=== PATIENT | male | born 1950 | race Caucasian/White ===

== ENCOUNTER → 2022-09-29 | Outpatient (CLI) | payer MEDICARE, OTHER, SELFPAY ==
--- NOTE | 2022-09-29 14:18 | US_ITS ---
EXAM: US Kidney(s) complete (eg, kidneys and bladder) INDICATION: Male, 71 years old. CKD3B TECHNIQUE: Eason-scale and color Doppler imaging was performed of the kidneys COMPARISON: No relevant priors. FINDINGS: RIGHT KIDNEY: The right kidney measures 10.5 x 5.3 x 6.3 cm. Renal cortex measures 1.8 cm in thickness. No focal parenchymal lesion. No evidence of nephrolithiasis. There is mild hydronephrosis.. Distal right ureter is visualized. . LEFT KIDNEY: Left kidney measures 11.4 x 5.8 x 6.9 cm. Renal cortex measures 1.1 cm in thickness.. No focal parenchymal lesion. Moderately severe hydronephrosis. No visualized nephrolithiasis. Distal left ureter is visualized. URINARY BLADDER: Urinary bladder demonstrates a prevoid volume of 112 mL. There is no significant wall thickening. There is a 1.2 cm echogenic focus in the caudal aspect of the urinary bladder lumen.. US/Kidney and Bladder IMPRESSION: 1. Moderate left-sided hydronephrosis without visualized nephrolithiasis. 2. 1.2 cm echogenic lesion within the caudal aspect of the urinary bladder lumen which may represent blood clot versus mucosal lesion.. Electronically Signed: Timmy Norris MD at 2:59 EDT ,
== END | disposition home or self-care (01) ==
LOC: US 14:16
PROVIDERS: PCP Family Medicine; Referring Provider Internal Medicine Nephrology; Visit Provider Internal Medicine Nephrology
DX: N18.32 Chronic kidney disease, stage 3b (principal)
CPT/HCPCS: 76770

== ENCOUNTER → 2023-01-13 | Outpatient (CLI) | payer MEDICARE, OTHER, SELFPAY ==
--- NOTE | 2023-01-13 13:55 | CT_ITS ---
INDICATION: CKD EXAMINATION: CT ABDOMEN AND PELVIS WITHOUT CONTRAST - CT Abdomen And Pelvis W/O Contrast Injection TECHNIQUE: Helically acquired images were obtained of the abdomen and pelvis without oral or IV contrast. A radiation dose optimization technique was used for this scan. IV Contrast dosage and agent: None. Oral contrast: None. RADIATION DOSAGE (If Supplied By Facility): CTDIvol = ( 15.28 ) mGy, DLP = ( 805.73 ) mGycm COMPARISON: Renal ultrasound of 09/29/2022. FINDINGS: LOWER CHEST: Hypoventilatory changes in lung bases. No cardiomegaly or pericardial effusion. LIVER: Homogeneous. No focal mass. GALLBLADDER AND BILIARY TREE: No calcified gallstones. No gallbladder distension or wall edema. No intra- or extrahepatic biliary ductal dilation. PANCREAS: No focal cystic or solid mass. SPLEEN: Normal size without focal cystic or solid mass. ADRENAL GLANDS: No nodules. KIDNEYS AND URETERS: Severe left hydronephrosis and hydroureter extending to the left ureterovesical junction without evidence of ureteral stones. Severe thinning of the left renal cortex. No evidence of right hydronephrosis. PERITONEUM: No ascites or free air. No other fluid collection. BOWEL: No evidence of acute appendicitis. No stomach or bowel distension. Diverticulosis of the sigmoid colon without evidence of acute diverticulitis. LYMPH NODES: No enlarged mesenteric or retroperitoneal lymph nodes. VESSELS: Atherosclerotic sclerotic calcifications of the abdominal aorta and both iliac arteries without evidence of aneurysm. URINARY BLADDER: The bladder is not well distended. Soft tissue density/mass on the left side of the base of the bladder measuring about 3 m probably obstructing the distal left ureter. REPRODUCTIVE ORGANS: Slightly prominent prostate. ABDOMINAL WALL: Bilateral inguinal hernias containing fat. BONES: Degenerative changes in the lower lumbar spine. CT/Abdomen/Pelvis without Cont IMPRESSION: 1. Severe left hydronephrosis and hydroureter with thinning of the renal cortex likely due to 3 cm mass on the left side of the bladder obstructing the left ureterovesical junction. Urologic consultation is recommended. 2. Diverticulosis without evidence of acute diverticulitis. 3. No focal acute inflammatory process. Electronically Signed: Quinton Davidson MD at 15:01 EDT ,
== END | disposition home or self-care (01) ==
LOC: CT 13:48
PROVIDERS: PCP Family Medicine; Referring Provider Urology; Visit Provider Urology
DX: N18.30 Chronic kidney disease, stage 3 unspecified (principal); N13.1 Hydronephrosis with ureteral stricture, not elsewhere classified; D41.4 Neoplasm of uncertain behavior of bladder
CPT/HCPCS: 74176

== ENCOUNTER 2023-02-09 08:46 | Day surgery (SDC) | payer MEDICARE, OTHER, SELFPAY ==
[2023-02-09] VITALS (7 sets, daily range): BP systolic 138–157; BP diastolic 67–94; PULSE 95–123; RESP 10–18; TEMP 36.2–36.9; O2SAT 94–100; BMI 32.5
[2023-02-09] MEDS: Lactated Ringers 1,000 ML 15 ML IV (09:16)
--- NOTE | 2023-02-09 10:11 | PCM.HP.BLA ---
History and Physical Date of Admission: 02/09/23 72 yo male comes in today abnormal u/s read us shows Left severe hydro nephrosis, causes is unclear also shows possible mass inside the bladder no gross hematuria, no problems voiding. comes in for a cysto had a ct scan done which shows a swollen left kidney hydro nephrosis and a mass in the bladder ALLERGIES: None MEDICATIONS: Amlodipine Besilate Chlorthalidone 25 mg tablet 1 tablet PO Daily Lisinopril 40 mg tablet 1 tablet PO Daily Immunizations: None VITAL SIGNS: 01/17/2023 10:32 AM Weight 206 lb / 93.44 kg Height 66 in / 167.64 cm BMI 33.2 kg/m? - BMI Counseling was provided. PHYSICAL EXAM: Constitutional: Well-nourished. No physical deformities. Normally developed. Good grooming. Neck: Neck symmetrical, not swollen. Normal tracheal position. Respiratory: No labored breathing, no use of accessory muscles. Cardiovascular: Normal temperature, normal extremity pulses, no swelling, no varicosities. Lymphatic: No enlargement of neck, axillae, groin. Skin: No paleness, no jaundice, no cyanosis. No lesion, no ulcer, no rash. Neurologic / Psychiatric: Oriented to time, oriented to place, oriented to person. No depression, no anxiety, no agitation. Gastrointestinal: No mass, no tenderness, no rigidity, non obese abdomen. Eyes: Normal conjunctivae. Normal eyelids. Ears, Nose, Mouth, and Throat: Left ear no scars, no lesions, no masses. Right ear no scars, no lesions, no masses. Nose no scars, no lesions, no masses. Normal hearing. Normal lips. Musculoskeletal: Normal gait and station of head and neck. Epididymides: Right: no spermatocele, no masses, no cysts, no tenderness, no induration, no enlargement. Left: no spermatocele, no masses, no cysts, no tenderness, no induration, no enlargement. Testes: No tenderness, no swelling, no enlargement left testes. No tenderness, no swelling, no enlargement right testes. Normal location left testes. Normal location right testes. No mass, no cyst, no varicocele, no hydrocele left testes. No mass, no cyst, no varicocele, no hydrocele right testes. Urethral Meatus: Normal size. No lesion, no wart, no discharge, no polyp. Normal location. Penis: Circumcised, no warts, no cracks. No dorsal Peyronie's plaques, no left corporal Peyronie's plaques, no right corporal Peyronie's plaques, no scarring, no warts. No balanitis, no meatal stenosis. PAST DATA REVIEW: None PROCEDURES: Flexible Cystoscopy - 31415 Risks, benefits, and some of the potential complications of the procedure were discussed at length with the patient including infection, bleeding, voiding discomfort, urinary retention, fever, chills, sepsis, and others. All questions were answered. Informed consent was obtained. Antibiotic prophylaxis was given. Sterile technique and intraurethral analgesia were used. Meatus: Normal size. Normal location. Normal condition. Urethra: No strictures. External Sphincter: Normal. Verumontanum: Normal. Prostate: Non-obstructing. Mild hyperplasia. Bladder Neck: Non-obstructing. Ureteral Orifices: Normal location. Normal size. Normal shape. Effluxed clear urine. Bladder: large invasive tumor in the bladder on the left side. 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 plan to do a TURBT for large tumor
--- NOTE | 2023-02-09 10:12 | DCINST_ITS ---
Discharge Instructions Diet Discharge Diet: No restrictions Activity Discharge Activity: Return to Normal Activity and May Not Drive (while taking narcotic pain medications.) Dressing / Incision Call your doctor if you observe: Fever of 101 or Higher Follow Up Care Please Follow Up With: Pepe Watts MD When: Call [phone] for an appointment Test Results: Test results from this visit will be discussed in further detail at your follow- up appointment, if applicable. Discharge Plan Admission Attending Provider: Pepe Watts Primary Care Provider: David Baptiste Discharge Orders/Prescriptions Prescriptions: No Action chlorthalidone 25 mg tablet 25 mg PO DAILY Patient Comments: take 1 tablet by mouth every morning with food amlodipine 5 mg tablet 5 mg PO DAILY Patient Comments: take 1 tablet by mouth once daily lisinopril 40 mg tablet 40 mg PO DAILY Patient Comments: take 1 tablet by mouth twice a day Other Ambulatory Orders: 12 Lead EKG (Routine) Timeframe: 20230131 Location: None Selected Ordered By: Dr. Amos Francisco Referrals / Follow Up: David Baptiste MD [Primary Care Provider] - Disposition Disposition (needs filled in before D/C Order can be placed): Home, Self Care
[2023-02-09] MEDS: Cefazolin 2 GM in 0.9% Normal Saline (100mL Bag) 100 ML IV (10:32)
--- NOTE | 2023-02-09 11:04 | OP.PCM_ITS ---
Report of Operation Date of Procedure: 02/09/23 Pre-Operative Diagnosis: Invasive tumor coming from the left ureteral orifice a nd bladder wall Post-Operative Diagnosis: The same Surgery/Procedure Performed:: Transurethral resection of a large bladder tumor appears invasive into the left ureter Description of Surgical Findings:: This is a 72-year-old male with gross hematuria CT scan was done that demonstrates a hydronephrotic left nonfunctioning kidney but hydro nephro ureteral dilation. In the bladder he has a mass that is obstructing the left ureter completely and protruding into the bladder second a do a transurethral resection of this mass to diagnose an invasive cancer and organ resect this mass is much as possible but I think he is going to need a complete nephro ureterectomy on the left side and an open partial cystectomy to remove this mass completely this will be done at a separate setting today Melanie do the resection and diagnostic evaluation. Patient was taken back to the operating room at the smooth induction of a nesthesia he was placed in dorsolithotomy position. He was intubated and paralyzed for the procedure. Went in with the bladder with the cystoscope on inspection of the bladder he has a large tumor , tumor measurements aware 5.5 cm x 3 cm x 4 cm emanating and pushing from the left ureter and left trigone area I then inspected the rest of the bladder I did not see any other tumors in the bladder I then switched over to the 24 Portuguese Olympus bipolar resectoscope with noncontinuous flow I then started resecting this tumor resected down to the muscle fibers all the way around the tumor and then resected in the tumor working basically up by up the ureter as far as possible until I reached perivesical fat at this point I decided to stop the resection since I have gone all the way through the bladder to the perivesical fat I then cauterized extensively and then a De Leon catheter was placed to decompress the bladder and allowed us to heal since I did have to go all the way through the perivesical fat to resect this tumor but it was not a complete resection since the tumor was look like it was going higher up in the ureter he is going to need a completion left nephro ureterectomy and an open partial cystectomy to remove the entire tumor completely. This was explained to the patient beforehand he will go home with a catheter I will see him a week later to remove the catheter and we will set him up for second surgery to remove his left kidney completely and also finished removing the tumor from his bladder. Surgeon: Pepe Watts Type of Anesthesia: General Drains: de leon 18 fr
--- NOTE | 2023-02-09 11:15 | BLA_PTH ---
PATIENT: DINH SIN LOC: [facility] [place] U#:[id number] AGE/SX: 72/M ROOM: RE02/09/[address]: Dr. Pepe Watts MD : 1950 BED: DIS: 02/09/2023 SPEC #: [id number] RECD: 02/09/23 14:03 STATUS: HERB CURTIS #: [id number] ALVERTO: 02/09/23 11:[address]: Pepe Watts DEPT: SURGICAL PATHOLOGY RECD BY: Mojgan Art ENTERED: 02/10/23 09:11 SP TYPE: BLADDER BX OTHR DR: Dr. David Baptiste MD Tissues: Urinary bladder, NOS Procedures: Surgery Specimen Level V HEADER OPERATION: Transurethral bladder tumor resection, large with Olympus PRE-OP DIAGNOSIS: Hydronephrosis with ureteral stricture; neoplasm of bladder TISSUE SUBMITTED: Bladder tumor MICROSCOPIC DIAGNOSIS Urinary bladder tumor, transurethral resection: Invasive urothelial carcinoma. See synoptic report below. AM:emily 02/11/2023 COMMENT BLADDER CANCER (TUR) SUMMARY Procedure: Transurethral resection of bladder tumor (TURBT) Tumor site: Not specified Histologic type: Invasive urothelial carcinoma Associated epithelial lesions: None identified Histologic grade: 3/3 (high grade) Tumor configuration: Nonpapillary, invasive Muscularis propria presence: Present and free of tumor. Lymphvascular invasion: Not identified. Tumor extension: Tumor invades into lamina propria. Additional pathologic findings: Mild chronic inflammation. The above summary is in compliance with [employer] [place] [employer] (CAP) Cancer Protocols Checklist and [place] Joint Committee on Cancer (AJCC), Staging Manual, 8th Ed. PATHOLOGIC STAGE: T1 Nx Mx Case has been reviewed in consultation with Dr. Winston who concurs with the above diagnosis. IDC:[id number] MICROSCOPIC DESCRIPTION Slides are reviewed. GROSS DESCRIPTION Received in fixative is one container labeled with the patient's name and designated bladder tumor. The specimen consists of multiple irregular fragments of light rankin soft tissue that in aggregate measure 4.0 x 4.0 x 0.2 cm. The specimen is totally submitted in three cassettes. / AM:emily 02/10/2023 TC:0 CPT: 57877
== END 2023-02-09 13:05 | disposition home or self-care (01) ==
LOC: SDC 08:47 → AC 08:48
PROVIDERS: PCP Family Medicine; Referring Provider Urology; Visit Provider Urology
PROC: 0TBB8ZZ Excision of Bladder, Via Natural or Artificial Opening Endoscopic (ICD-10-PCS; CPT 52240; principal; 2023-02-09 11:05)
DX: C66.2 Malignant neoplasm of left ureter (principal); N13.1 Hydronephrosis with ureteral stricture, not elsewhere classified; I10 Essential (primary) hypertension; Z79.899 Other long term (current) drug therapy; Z87.891 Personal history of nicotine dependence
CPT/HCPCS: 52240; 00912; 88305; 88307; 93005; J7120; J2405

== ENCOUNTER 2023-02-23 08:02 | Inpatient (IN) | payer MEDICARE, OTHER, SELFPAY ==
[2023-02-19 07:55] LABS: Hematocrit 41.7 % (40-54); Mean Corp Hgb Conc 28.8 g/dL (32-36); Mean Corpuscular Volume 93.7 fL (80-94); Mean Platelet Vol. 10.6 fl (6.2-12.0); Platelet Count 395 K/mm3 (150-450); RBC Distribution Width CV 14.4 % (11.6-14.6); RBC Distribution Width SD 50.1 fl (35.1-43.9); Red Blood Count 4.45 M/mm3 (4.6-6.2); White Blood Count 9.1 K/mm3 (4.4-11.0)
[2023-02-19 08:37] LABS: Anion Gap 2 (5-15); BUN 68 mg/dL (7-18); BUN/Creat Ratio 26.8 RATIO (10-20); Calcium,Total 9.3 mg/dL (8.5-10.1); Chloride 115 mmol/L (98-107); Creatinine, Serum 2.54 mg/dL (0.70-1.30); EST Glomerular Filtration Rate 27 mL/min (>60); Est Glom Filt Rate - Afr Amer 32 mL/min (>60); Glucose 106 mg/dL (74-106); Sodium Level 142 mmol/L (136-145)
[2023-02-23] VITALS (10 sets, daily range): BP systolic 119–153; BP diastolic 64–81; PULSE 92–105; RESP 15–18; TEMP 36.2–36.9; O2SAT 94–99; BMI 32.1
--- NOTE | 2023-02-23 | IMM_PTH ---
PATIENT: DINH SIN LOC: [facility] U#:[id number] AGE/SX: 72/M [place]: [facility] [place]/23/[address]: Dr. Pepe Watts MD : 1950 BED: 1 DIS: 02/26/2023 SPEC #: [id number] RECD: 03/02/23 11:48 STATUS: HERB REQ #: [id number] ALVERTO: 02/23/23 00:[address]: Pepe Watts DEPT: IMMUNOHISTOCHEMISTRY RECD BY: Jelena Newton ENTERED: 03/02/23 11:53 SP TYPE: IMMUNO OTHR DR: Dr. David Baptiste MD Tissues: B - Vas deferens, NOS C - Ureter, NOS Procedures: Kam Ret (add) CD31 (add) CD34 (add) CK20 (add) CK5-6 (add) CK7 (add) CK8 (add) ZARA (add) KI-67 (add) P53 (add) 34BE12 (add) FACTOR VIII (add) Pankeratin (initial) GATA3 (add) PAX8 (add) MOC-31 (add) PHYSICIAN & INSTITUTION [place] [id number] SPECIMEN INFORMATION: Tissue Source: B - Suspected vas deferens, C - Left ureter Clinical Info: Malignant neoplasm of left ureter Specimen Number: [id number] B3 & C4 CPT code: 32397 x2, 48434 x23 METHODOLOGY: Deparaffinized sections of prefer/formalin-fixed tissue or PAP/DQ stained slides are incubated with monoclonal/polyclonal antibodies/oligonucleotide probes. Localization is made via biotin free immunoperoxidase method. Appropriate controls are performed and reacted as expected. Results on target cell population are indicated in the following table: RESULTS: ANTIBODY / CLONE RESULT Block B3 GATA3 (L50-823) positive AE1-3 (AE1/AE3/PCK26) positive CK7 (OV-TL12/30) positive CK8 (01krulU66) positive CK20 (KS20.8) negative 34BE12 (34BE12) positive, focal CD34 (QBEnd-10) negative PAX8 (MRQ50) positive ZARA (E29) positive, focal P53 (DO-7) positive, wild type pattern Ki-67 (30-9) negative Block C4 AE1-3 (AE1/AE3/PCK26) positive CK7 (OV-TL12/30) positive CK8 (35arioC22) positive CK20 (KS20.8) positive 34BE12 (34BE12) positive MOC-31 (4561) negative CALRET (polyclonal) negative PAX8 (MRQ50) negative CK5-6 (D5 & 1684) P53 (DO-7) positive, missense type pattern Ki-67 (30-9) positive, 50% CD31 (DEIRDRE/70A) positive CD34 (QBEnd-10) negative Factor VIII (R Ag) positive These tests were developed and their performance characteristics determined by [facility]. They may not have been cleared or approved by the U.S. Food and Drug Administration. The FDA has determined that such clearance or approval is not necessary. The above immunohistochemical/dualISH markers are ordered and reviewed by the Pathologist. INTERPRETATION: B. Suspected vas deferens, excision: Benign vas deferens No evidence of dysplasia or carcinoma. C. Left ureter, segmental resection: Invasive urothelial carcinoma. Focal lymphatic invasion by carcinoma. AM:emily 03/11/2023
[2023-02-23] MEDS: Lactated Ringers 1,000 ML 15 ML IV (08:43)
--- NOTE | 2023-02-23 10:15 | KID_PTH ---
PATIENT: DINH SIN LOC: [facility] U#:[id number] AGE/SX: 72/M ROOM: [facility] [place] RE02/23/[address]: Dr. Pepe Watts MD : 1950 BED: 1 DIS: 02/26/2023 SPEC #: [id number] RECD: 02/24/23 07:49 STATUS: HERB ACEVEDO #: [id number] ALVERTO: 02/23/23 10:[address]: Pepe Watts DEPT: SURGICAL PATHOLOGY RECD BY: Mojgan Art ENTERED: 02/24/23 07:51 SP TYPE: KIDNEY OTHR DR: Dr. David Baptiste MD Tissues: A - Urinary bladder, NOS B - Vas deferens, NOS C - Ureter, NOS D - Kidney, NOS Procedures: Gen Path Consultation (on slides) Surgery Specimen Level IV Surgery Specimen Level V HEADER OPERATION: Laparoscopic robotic left nephroureterectomy, transurethral PRE-OP DIAGNOSIS: Malignant neoplasm of left ureter TISSUE SUBMITTED: A - Bladder tissue, B - Suspected vas deferens, C - Left ureter, D - Left kidney MICROSCOPIC DIAGNOSIS A. Urinary bladder, transurethral resection: Fragments of benign urothelium with mild chronic inflammation. Fragments of smooth muscle tissue with focal acute and chronic inflammation. B. Suspected vas deferens, excision: Benign vas deferens. C. Left ureter, segmental resection: Invasive urothelial carcinoma. See synoptic report below. D. 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 See synoptic report below. AM:emily 03/11/2023 COMMENT B & C. Immunohistochemistry ([id number]) supports the above diagnosis. Case is seen in consultation with Dr. Neumann of [employer] [facility]. Complete consultative report is in EMR. C. URETER CANCER SUMMARY Procedure: Ureterectomy Specimen laterality: left Tumor site: Ureter Tumor size: Greatest dimension: 3.0 cm Additional dimension: 1.0 x 1.0 cm Histologic type: Urothelial carcinoma, invasive (conventional) Histologic Grade: High grade, 3/3 Tumor extent: Invades beyond muscularis into the periureteric fat. Lymphatic and/or vascular invasion: Present, focal Tumor configuration: Non-papillary, invasive Margin status for invasive carcinoma: All margins negative for invasive carcinoma. Regional lymph node status: Not applicable (no regional lymph nodes submitted or found). Distant site: Cannot be determined. Associated epithelial lesions: None identified - PATHOLOGIC STAGE: pT3 pNx pMx D. RENAL PELVIS CANCER SUMMARY Procedure: Nephrectomy Specimen laterality: Left Tumor site: Renal pelvis Tumor size: Greatest dimension: 1.0 cm Additional dimension: 0.8 x 0.2 cm Histologic type: Urothelial carcinoma, invasive (conventional) Histologic grade: High-grade, G3, poorly differentiated Tumor extent: Invades subepithelial connective tissue, focally. Lymphatic and/or vascular invasion: Focally suspected Margin status for invasive carcinoma: All margins negative for invasive carcinoma. Regional lymph node status: Not applicable (no agustin lymph nodes submitted or found) Distant metastasis: Distant sites involved: Cannot be determined. Associated epithelial lesions: None identified Additional findings: Kidney with marked arterionephrosclerosis, cystic change and chronic inflammation. PATHOLOGIC STAGE: pT1 pNx pMx The above summary is in compliance with [employer] [place] [employer] (CAP) Cancer Protocols Checklist and [place] [employer] Committee on Cancer (AJCC), Staging Manual, 8th Ed. MICROSCOPIC DESCRIPTION Slides are reviewed. GROSS DESCRIPTION A - Received in fixative is one container labeled with the patient's name and designated bladder tissue. The specimen consists of multiple irregular fragments of rubbery rankin tissue that in aggregate measure 2.0 x 1.2 x 0.2 cm. The specimen is totally submitted in one cassette. / AM: 02/24/2023 B - Received in fixative is one container labeled with the patient's name and designated suspected vas deferens. The specimen consists of two tubular segments of rankin tissue measuring 1.6 cm in length and 0.3 cm in average diameter. Property Damage Claims Adjustor sections from each tubular tissue is submitted separately in two cassettes. / AM: 02/24/2023 C - Received in fixative is one container labeled with the patient's name and designated left ureter. The specimen consists of an elongated fragment of tubular tissue with adherent fatty tissue measuring 9.5 cm in length and 1.5 cm in diameter. A plastic clip is present at one end. This end is inked in black ink. The remainder of the specimen is inked in blue ink. Serial sections reveal the lumen to be occupied by a dense white lesion measuring 3.0 x 1.0 x 1.0 cm. The remainder of the ureter appears to be dilated. Property Damage Claims Adjustor sections are submitted in four cassettes. / AM:emily 02/24/2023 D - Received in fixative is one container labeled with the patient's name and designated left kidney. The specimen consists of a kidney with attached ureter and surrounding fibrofatty tissue measuring 22.0 x 12.0 x 5.0 cm. Dissection reveals a multicystic kidney measuring 11.0 x 7.0 x 4.0 cm. The distal ureter measures 12.0 cm. The ureter is probe-patent and contains granular material; however, no mass lesions are identified. The vascular margins of resection are grossly unremarkable. The renal parenchyma varies in thickness from 0.8 to 0.2 cm. The renal pelvis appears to be grossly dilated and contains flat, plaque-like lesion measuring 1.0 x 0.8 x 0.3 cm. The pelvicalyceal systems are not distinct and serial sections of the kidney does not reveal mass lesions. A renal gland is not present. Property Damage Claims Adjustor sections are submitted in seven cassettes as follows: 1 - vascular and ureteric margins, 2 - renal sinus, 3??renal pelvic mass, serially sectioned, 4-7 - renal parenchyma with adjacent perinephric fat. / AM:emily 02/25/2023 TC:0 CPT: 90885 x2, 84091 x2
[2023-02-23] MEDS: Cefazolin 2 GM in 0.9% Normal Saline (100mL Bag) 100 ML IV (11:35)
--- NOTE | 2023-02-23 11:36 | DCINST_ITS ---
Discharge Instructions Diet Discharge Diet: No restrictions and Light diet - advance as tolerated Activity Discharge Activity: May Not Drive Lifting Restrictions: no lifting Dressing / Incision Call your doctor if you observe: Fever of 101 or Higher Cleanse incision/area with: Soap & Water Catheter: Saravia to leg bag and Saravia to large bag Drain: [place] Follow Up Care Please Follow Up With: Pepe Watts MD When: 2 weeks, call for appt Test Results: Test results from this visit will be discussed in further detail at your follow- up appointment, if applicable. Discharge Plan Admission Admit Date/Time: 02/23/23 08:02 Primary Reason for Your Visit: Left nephro ureterectomy Attending Provider: Pepe Watts Primary Care Provider: David Baptiste Discharge Orders/Prescriptions Prescriptions: New docusate sodium [Colace] 100 mg capsule 100 mg PO BID Qty: 20 0RF oxycodone 5 mg tablet 5 mg PO Q6H PRN (Reason: pain) 7 Days Qty: 20 0RF Continued chlorthalidone 25 mg tablet 25 mg PO DAILY Patient Comments: take 1 tablet by mouth every morning with food amlodipine 5 mg tablet 5 mg PO DAILY Patient Comments: take 1 tablet by mouth once daily lisinopril 40 mg tablet 40 mg PO DAILY Patient Comments: take 1 tablet by mouth twice a day Referrals / Follow Up: David Baptiste MD [Primary Care Provider] - Pepe Watts MD [Med Staff - Active Staff] -
--- NOTE | 2023-02-23 11:36 | HP.PCM_ITS ---
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 [facility] Medical History (Updated 02/09/23 @ 10:[address] Pepe Watts MD) Bladder disease Cancer Former smoker Prostate disease Wears glasses Home Medications amlodipine 5 mg tablet 5 mg PO DAILY BP 01/26/23 [History Last Taken 02/23/23] chlorthalidone 25 mg tablet 25 mg PO DAILY BP 01/26/23 [History Last Taken 02/22/23] lisinopril 40 mg tablet 40 mg PO DAILY BP 01/26/23 [History Last Taken 02/23/23] docusate sodium 100 mg capsule (Colace) 100 mg PO BID #20 caps 02/23/23 [Rx Last Taken Unknown] oxycodone 5 mg tablet 5 mg PO Q6H PRN pain 7 days #20 tabs 02/23/23 [Rx Last Taken Unknown] Allergy/AdvReac Type Severity Reaction Status Date / Time No Known Allergies Allergy Verified 02/18/23 14:02 Surgical History (Updated 02/18/23 @ 14:17 by Monie Linares) History of cataract extraction with lens replacement (~2015) History of hernia repair (~1975) History of surgery of head (~1991) History of toe surgery History of transurethral resection of bladder tumor (TURBT) Social History Smoking Status: Former smoker Vital Signs Vital Signs Vital Signs: 02/23/23 08:45 02/23/23 08:45 Temperature 98.1 F Temperature Source Temporal Pulse Rate 95 Respiratory Rate 18 Respiratory Pattern Normal Blood Pressure 153/81 H Blood Pressure Mean 105 Blood Pressure Source Monitor Blood Pressure Position Semi-Fowlers Blood Pressure Location Right Arm Pulse Ox 99 Oxygen Delivery Method Room Air Weight Weight: 90.265 kg Body Mass Index (BMI) 32.1 Results Lab / Micro Data 02/19/23 07:25 02/19/23 07:25
[2023-02-23] MEDS: Lubricating Jelly 60 GM Tube 30 GM (11:45)
[2023-02-23] MEDS: Bupivacaine Mpf 0.5% 30 ML VIAL (15:02)
--- NOTE | 2023-02-23 15:14 | OP.PCM_ITS ---
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 Post-Operative Diagnosis: The same Surgery/Procedure Performed:: Cystoscopy and transurethral resection of the left ureteral orifice and lateral wall the bladder wide resection, robotic assisted laparoscopic nephro ureterectomy and closure of bladder Description of Surgical Findings:: This is a 72-year-old male has gross hematuria was found to have a tumor coming from his left ureteral orifice this was resected and it was invasive into the lamina propria and it was coming from the left ureteral orifice causing complete obstruction and he had a severely hydronephrotic left ureter with atrophic nonfunctioning left kidney so recommended that we do a wide excision around the left ureter from the bladder and then we do a nephro ureterectomy remove the entire kidney and ureter all the way from the top down to remove the diseased kidney and remove the cancer from the distal ureter. Patient was taken back to the operating room at the smooth induction of anesthesia he was placed in dorsolithotomy position. The penis and testicles were prepped and draped in usual fashion went into the bladder with a 21 South African rigid cystourethroscope identified the lateral wall of the bladder with the prior resection and the ureter could not be seen because it was in the middle of this resection site but I knew that prior resection and resected deep into the bladder on the left side where the ureter was we then switched over to the resectoscope I then used a resectoscope and used needle tip the resectoscope and scored all the way around this to get into the fat all the way around to release the ureter from the left side. Once this was done the De Leon catheter was placed and the patient was repositioned full flank on the left left side with the left side up and then we prepped and draped the abdomen in sterile fashion we placed camera ports we placed him in a slant so that we could dissect the kidney and then also dissect down to the bladder. We for started by getting into the abdomen with the robot we reflected the colon off the kidney reflected the colon all the way down to the pelvis I then elevated the Gerota's fascia and then identified a very large blue vascular structure that was the dilated ureter as we elevated this up I then traced the ureter down to the bladder in order to facilitate the dissection of the ureter I then put 2 clips and transected the ureter at this point and then continue with the dissection in the inferior dissected inferiorly circumferentially around the ureter all the way down to the bladder retracting the bladder laterally is very tough case was a lot of fat tissue was in the way but eventually was able to dissect the distal ureter off the bladder through a large white cystotomy in the bladder I then closed the cystotomy in the bladder with a running V-Loc stitch 3 oh and then once this was closed then we put the ureter in Endo Catch bag I then turned my attention to the kidney we elevated the kidney up we started marching along the bottom of the kidney and we did first took gonadal vein branch and then we then went to the hilum we took the renal artery and renal vein and then a second renal artery behind the vein and then we elevated the kidney up and then as we elevated the kidney up and then we dissected off the spleen and then we left the adrenal in place did not look that diseased and then we took the dissected the kidney off the lateral sidewall and then the kidney was completely freed up blood loss at this point about 400 cc we used copious irrigation we then placed an Endo Catch bag in the abdomen which captured the large kidney in the Endo Catch bag we undocked the robot and then made an extraction site and we pulled the kidney out through the extraction site in the lower abdomen we then closed the extraction site in 2 layers with running 0 Vicryl we closed our air seal port with 0 Vicryl stitch and then we closed our incisions with subcuticular stitches new De Leon catheter was placed to ensure proper drainage and a South African catheter because you are to go home with a catheter anesthetic is currently being reversed patient tolerated procedure well successful removal of the left kidney the entire left ureter all the way down to the bladder with the bladder cuff and spoke to the family let him know that the pathology finding will be critical as to what neck steps are necessary to treat the patient for his cancer Surgeon: Pepe Watts Type of Anesthesia: General Drains: de leon Estimated Blood Loss (mL): 400 Admit VTE Documentation VTE Present on Admission: No VTE Mechan Device Prophylaxis: SCD's VTE Pharm Prophylaxis ordered?: No
[2023-02-23] MEDS: 0.9% Normal Saline (1000mL) 1,000 ML 125 ML IV (18:37)
[2023-02-23] MEDS: oxyCODONE 5 MG Tablet PO (20:37)
[2023-02-23] MEDS: Acetaminophen 325 MG Tablet PO (20:38)
[2023-02-23] MEDS: Ciprofloxacin 400 MG/200 ML BAG 200 MG IV (22:58)
[2023-02-23] MEDS: Docusate Sodium 100 MG Capsule 200 MG PO (22:59)
[2023-02-23] MEDS: Morphine 2 MG/ML Syringe IV (23:48)
[2023-02-24] VITALS (9 sets, daily range): BP systolic 123–142; BP diastolic 69–76; PULSE 97–112; RESP 16–18; TEMP 36.9–37.4; O2SAT 86–98
[2023-02-24] MEDS: 0.9% Normal Saline (1000mL) 1,000 ML 125 ML IV (04:26)
[2023-02-24] MEDS: Acetaminophen 325 MG Tablet PO ×2 (06:23→13:30)
[2023-02-24 06:28] LABS: Hemoglobin 10.2 g/dL (13.0-16.5); Mean Corpuscular Hgb 27.1 pg (27.0-32.0); Mean Corpuscular Volume 90.4 fL (80-94); Mean Platelet Vol. 10.7 fl (6.2-12.0); Platelet Count 270 K/mm3 (150-450); RBC Distribution Width CV 14.2 % (11.6-14.6); RBC Distribution Width SD 46.5 fl (35.1-43.9); Red Blood Count 3.76 M/mm3 (4.6-6.2); White Blood Count 9.5 K/mm3 (4.4-11.0)
[2023-02-24 07:04] LABS: Anion Gap 5 (5-15); BUN 40 mg/dL (7-18); BUN/Creat Ratio 19.9 RATIO (10-20); Calcium,Total 7.8 mg/dL (8.5-10.1); Chloride 113 mmol/L (98-107); Creatinine, Serum 2.01 mg/dL (0.70-1.30); EST Glomerular Filtration Rate 35 mL/min (>60); Est Glom Filt Rate - Afr Amer 42 mL/min (>60); Estimated Creatinine Clearance 30.42 ml/min; Glucose 108 mg/dL (74-106); Potassium 4.7 mmol/L (3.5-5.1); Sodium Level 140 mmol/L (136-145)
--- NOTE | 2023-02-24 07:24 | PCM.PN.GU ---
Subjective Subjective Status post left nephro ureterectomy with bladder cuff and closure of bladder, he is doing well postop labs today look good hemoglobin stable vitals are stable mild pain but as expected. Plan to advance diet as tolerated ambulate. Objective Data Objective Data Vital Signs: Vital Signs Temp Pulse Resp BP Pulse Ox O2 Del Method O2 Flow Rate 98.4 F 100 16 123/69 H 93 Nasal Cannula 2 02/24/23 06:10 02/24/23 06:10 02/24/23 06:10 02/24/23 06:10 02/24/23 06:10 02/24/23 06:10 02/24/23 06:10 Oxygen Flow Rate (L/min) 2 Oxygen Delivery Method Nasal Cannula Weight: 90.265 kg Body Mass Index (BMI) 32.1 Intake & Output: Intake and Output for Last 24 Hours 02/22/23 02/23/23 02/24/23 23:59 23:59 23:59 Intake Total 3210 / 3210 1100 / 1100 Output Total 1250 / 1250 550 / 550 Balance 1960 / 1960 550 / 550 Lab / Micro Data 02/24/23 05:55 02/24/23 05:55 Labs: Laboratory Results - last 24 hr 02/24/23 05:55: WBC 9.5, RBC 3.76 L, Hgb 10.2 L, Hct 34.0 L, MCV 90.4, MCH 27.1, MCHC 30.0 L, RDW Std Deviation 46.5 H, RDW Coeff of Raghavendra 14.2, Plt Count 270, MPV 10.7, Sodium 140, Potassium 4.7, Chloride 113 H, Carbon Dioxide 22.0, Anion Gap 5, BUN 40 H, Creatinine 2.01 H, Estim Creat Clear Calc 30.42, Est GFR (MDRD) Af Amer 42 L, Est GFR (MDRD) Non-Af 35 L, BUN/Creatinine Ratio 19.9, Glucose 108 H, Calcium 7.8 L
[2023-02-24] MEDS: Docusate Sodium 100 MG Capsule 200 MG PO ×2 (09:17→22:30)
[2023-02-24] MEDS: Chlorthalidone 50 MG Tablet 25 MG PO (09:17)
[2023-02-24] MEDS: amLODIPine 5 MG Tablet PO (09:17)
[2023-02-24] MEDS: Lisinopril 40 MG Tablet PO (09:17)
[2023-02-24] MEDS: Ciprofloxacin 400 MG/200 ML BAG 200 MG IV (09:19)
--- NOTE | 2023-02-24 12:40 | CASEMGMT ---
BARRY BONILLA Assessment: Face to Face with pt for initial transition planning/care coordination assessment. BARRY BONILLA introduced self and role at [facility], pt voices understanding and consents to assessment. Pt is A&O x4 and answers all questions appropriately at this time. Care providers, pharmacy, and demographics verified/updated. Admitting Dx: Laparoscopic Robotic Nephroureterectomy PCP: Emile Specialists: Harrison (shuttle fixer), Mac (urologist) Preferred Pharmacy: [facility] ([place]) Insurance: [facility] A [facility] B Prescription Benefit: yes LNOK: Duc Peña () Living Will/HCPOA: Yes and Yes; is HCPOA Living Arrangements: Pt lives with his in a 2 story home that is not [facility], but pt. states he could recover on the first floor. 3 steps no railing to enter and 12 steps w/railing to second floor. Prior to this admission pt. states he did fine with ambulating these steps. Pt. states he is I in all ADLs/IADLs. Transportation: Self and friend DME: grab bars, hand held shower, pulse ox. Pt. declines to receive information on medical alert systems. HHC/SNF: Denies previous SNF/HHC. Pt at first states he could hardly walk yesterday with the WW because of the pain. He also states is is still recovering from a major esophageal surgery that she recently had and would not be able to help him much. When we discuss the possibility of possible placement for recovery, pt. is very resistant to this and states that his could help him some and that he needs to be home to help her too. BARRY BONILLA validated pt's concerns and voiced that we definitely want to make sure wr plan for a safe discharge for him, and suggested we could order PT/OT to evaluate him as well. Pt. open to this. He states he would prefer home with HHC. Pt states no further concerns/needs. CM to follow. Advised pt to ask CM if any further question/concerns/needs arise, voices understanding. Pt Goal: Home with HHC and support of . Plan: TBD. ome with HHC vs. SNF. Follow PT/OT. Pt. may need script for walker if discharges home.
[2023-02-24] MEDS: oxyCODONE 5 MG Tablet PO ×2 (13:30→22:34)
--- NOTE | 2023-02-24 15:03 | NURSING ---
walked pt in hallway, tolerated it well. now up to chair.
--- NOTE | 2023-02-24 16:13 | CASEMGMT ---
Spoke with PT who states pt did well although they are recommending a FWW. Printed rx and asked charge nurse to pass on in report for signature in the morning.
[2023-02-25] VITALS (8 sets, daily range): BP systolic 121–144; BP diastolic 65–82; PULSE 100–116; RESP 17–20; TEMP 36.6–37; O2SAT 92–97
[2023-02-25] MEDS: Acetaminophen 325 MG Tablet PO ×3 (04:43→21:32)
--- NOTE | 2023-02-25 07:25 | PCM.PN.GU ---
Subjective Subjective doing well passing gas ambulating abd soft plan for discharge tomorrow am home with haley Objective Data Objective Data Vital Signs: Vital Signs Temp Pulse Resp BP Pulse Ox O2 Del Method O2 Flow Rate 97.8 F 116 H 18 133/82 H 93 Room Air 2 02/25/23 04:46 02/25/23 04:46 02/25/23 04:46 02/25/23 04:46 02/25/23 04:46 02/25/23 04:46 02/24/23 22:21 Oxygen Flow Rate (L/min) 2 Oxygen Delivery Method Room Air Weight: 90.265 kg Body Mass Index (BMI) 32.1 Intake & Output: Intake and Output for Last 24 Hours 02/23/23 02/24/23 02/25/23 23:59 23:59 23:59 Intake Total 3210 / 3210 2264.58 / 2564.58 600 / 600 Output Total 1250 / 1250 1625 / 1925 700 / 700 Balance 1959 / 1959 639.58 / 639.58 -100 / -100 Lab / Micro Data 02/24/23 05:55 02/24/23 05:55
[2023-02-25] MEDS: Chlorthalidone 50 MG Tablet 25 MG PO (08:15)
[2023-02-25] MEDS: Docusate Sodium 100 MG Capsule 200 MG PO ×2 (08:15→21:33)
[2023-02-25] MEDS: amLODIPine 5 MG Tablet PO (08:16)
[2023-02-25] MEDS: Lisinopril 40 MG Tablet PO (08:16)
--- NOTE | 2023-02-25 11:22 | CASEMGMT ---
Social Work SW met with pt to discuss advance directives.? Pt confirms he has completed a living will and health care POA naming his Duc Peña.? Pt notified that documents are not on file at [facility] and SW requested they be brought in for scanning into the EMR.? ANTONETTE Salguero
--- NOTE | 2023-02-25 12:29 | CASEMGMT ---
RN CHAD sent DME referral for FWW to [facility] via [facility]. Green sheet and script that requires signature placed on pt's chart.
--- NOTE | 2023-02-25 16:10 | CASEMGMT ---
BARRY CM into pt room, pt sitting up in bed in no distress. Pt states he had a catheter approx one week ago and he feels comfortable caring for it at home. Pt is aware that tomorrow prior to dc he will receive a FWW. Pt states this will help at home. He denies any homegoing needs at this time.
[2023-02-25] MEDS: 0.9% Saline Lock 10 ML Syringe IV (21:32)
[2023-02-26 04:12] VITALS: BP 151/70; PULSE 100; RESP 18; TEMP 36.6; O2SAT 100
[2023-02-26] MEDS: Acetaminophen 325 MG Tablet PO (06:42)
[2023-02-26] MEDS: Docusate Sodium 100 MG Capsule 200 MG PO (08:26)
[2023-02-26] MEDS: Chlorthalidone 50 MG Tablet 25 MG PO (08:26)
[2023-02-26] MEDS: amLODIPine 5 MG Tablet PO (08:26)
[2023-02-26] MEDS: Lisinopril 40 MG Tablet PO (08:27)
[2023-02-26 09:10] VITALS: BP 121/74; PULSE 92; RESP 16; TEMP 36.8; O2SAT 97
[2023-02-26 11:47] VITALS: BP 130/74; PULSE 105; RESP 16; TEMP 36.8; O2SAT 96
--- NOTE | 2023-03-09 11:50 | PCM.DC.SUM ---
Providers Date of Admission: 02/23/23 Date of Discharge: 02/26/23 Primary Care Physician: Dr. David Baptiste MD Reason For Visit: Laparoscopic Robotic Nephroureterec Diagnosis Discharge Diagnosis (1) Ureteral carcinoma: Status: Acute Code(s): C66.9 - Malignant neoplasm of unspecified ureter Qualifiers: Laterality: left Qualified Code(s): C66.2 - Malignant neoplasm of left ureter Medications at Discharge Home Medications amlodipine 5 mg tablet 5 mg PO DAILY BP 01/26/23 chlorthalidone 25 mg tablet 25 mg PO DAILY BP 01/26/23 lisinopril 40 mg tablet 40 mg PO DAILY BP 01/26/23 docusate sodium 100 mg capsule (Colace) 100 mg PO BID #20 caps 02/23/23 oxycodone 5 mg tablet 5 mg PO Q6H PRN pain 7 days #20 tabs 02/23/23 Hospital Course Summary of Care Provided Hospital Course: Patient had an unremarkable postoperative course and was discharged on postoperative day 3 with a Saravia catheter after a laparoscopic robotic assisted nephro ureterectomy and removal of a bladder cuff surgery was for 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 Physical Exam Const alert and oriented x3 General Appearance: cooperative HEENT normocephalic, head/scalp atraumatic, EAC's normal and TM's normal bilaterally Eyes PERRL and EOMs intact bilaterally Pupil: sluggish Neck no lymphadenopathy, supple and no JVD General: trachea midline Lymph Lymphatic: no lymphadenopathy noted, lymphedema and lymphadenopathy Resp normal respiratory effort, normal air movement and clear to auscultation bilaterally Cardio regular rate, regular rhythm and peripheral pulses 2+ throughout GI soft to palpation, non-tender and non-distended Extremity normal capillary refill and no clubbing, cyanosis or edema General Extremity: no tenderness to palpation of joints or extremities Skin no rashes or lesions noted General Skin Exam: turgor normal Lesions: no lesions Rashes: no rashes Neuro CN's II-XII intact bilaterally Speech: speech normal Motor Exam: strength 5/5 throughout; Negative for general weakness Psych thought process normal, cooperative and affect normal Appearance: appropriate Weight / BMI Weight Weight: 90.265 kg Body Mass Index (BMI) 32.1 ABG / Lab / Microbiology Data 02/24/23 05:55 02/24/23 05:55 D/C Instructions Discharge Diet: No restrictions and Light diet - advance as tolerated Call your doctor if you observe: Fever of 101 or Higher Cleanse incision/area with: Soap & Water Catheter: Saravia to leg bag and Saravia to large bag Drain: [place] Please Follow Up With: Pepe Watts MD When: 2 weeks, call for appt Meaningful Use Info Meaningful Use Diagnoses (Choose all that apply): None applicable Discharge Plan Admission Admit Date/Time: 02/23/23 08:02 Primary Reason for Your Visit: Left nephro ureterectomy Attending Provider: Pepe Watts Primary Care Provider: David Baptiste Discharge Orders/Prescriptions Prescriptions: New docusate sodium [Colace] 100 mg capsule 100 mg PO BID Qty: 20 0RF oxycodone 5 mg tablet 5 mg PO Q6H PRN (Reason: pain) 7 Days Qty: 20 0RF Continued chlorthalidone 25 mg tablet 25 mg PO DAILY Patient Comments: take 1 tablet by mouth every morning with food amlodipine 5 mg tablet 5 mg PO DAILY Patient Comments: take 1 tablet by mouth once daily lisinopril 40 mg tablet 40 mg PO DAILY Patient Comments: take 1 tablet by mouth twice a day Referrals / Follow Up: David Baptiste MD [Primary Care Provider] - Pepe Watts MD [Med Staff - Active Staff] - Disposition Disposition (needs filled in before D/C Order can be placed): Home, Self Care
== END 2023-02-26 12:17 | disposition home or self-care (01) | DRG 657 ==
LOC: ACINP 08:02 → MS3 19:57
PROVIDERS: Anesthesiology; Admitting Provider Urology; PCP Family Medicine; Referring Provider Urology; Visit Provider Urology
PROC: 0TT14ZZ Resection of Left Kidney, Percutaneous Endoscopic Approach (ICD-10-PCS; CPT 50546; principal; 2023-02-23 10:00)
DX: C66.2 Malignant neoplasm of left ureter (principal); N13.1 Hydronephrosis with ureteral stricture, not elsewhere classified; C65.2 Malignant neoplasm of left renal pelvis; N18.30 Chronic kidney disease, stage 3 unspecified; I12.9 Hypertensive chronic kidney disease with stage 1 through stage 4 chronic kidney disease, or unspecified chronic kidney disease; Z79.899 Other long term (current) drug therapy; Z87.891 Personal history of nicotine dependence
CPT/HCPCS: 36415; 80048; 81002; 85027; 86850; 86900; 86901; 88302; 88304; 88305; 88307; 88325; 88341; 88342; 94668; 97162; 97530; 99252; J7030; J7120; A4216; G0463; J0744; J2405

== ENCOUNTER 2023-08-03 13:43 | Inpatient (IN) | payer MEDICARE, OTHER, SELFPAY ==
[2023-08-03] VITALS (13 sets, daily range): BP systolic 137–167; BP diastolic 73–100; PULSE 96–132; RESP 16–35; TEMP 35.4–36.9; O2SAT 86–100; BMI 29.7; BMI 30.9
--- NOTE | 2023-08-03 14:19 | EDS_ITS ---
HPI History of Present Illness Chief Complaint: Shortness of Breath [facility] Medical History (Updated 03/09/23 @ 11:[address] Pepe Watts MD) Bladder disease Cancer Former smoker Prostate disease Wears glasses Home Medications amlodipine 5 mg tablet 5 mg PO DAILY BP 01/26/23 [History Last Taken 08/03/23] chlorthalidone 25 mg tablet 25 mg PO DAILY BP 01/26/23 [History Last Taken 08/03/23] Allergy/AdvReac Type Severity Reaction Status Date / Time No Known Allergies Allergy Verified 08/03/23 13:48 Surgical History (Updated 02/18/23 @ 14:17 by Monie Linarse) History of cataract extraction with lens replacement (~2015) History of hernia repair (~1975) History of surgery of head (~1991) History of toe surgery History of transurethral resection of bladder tumor (TURBT) Social History Smoking Status: Former smoker EXAM Physical Exam Const Vital Signs: 08/03/23 13:44 08/03/23 13:47 08/03/23 14:47 Temperature 95.8 F L 95.8 F L 98.1 F Temperature Source Temporal Temporal Oral Pulse Rate 118 H 118 H 99 Respiratory Rate 22 H 20 H 16 Respiratory Effort Respiratory Depth Respiratory Pattern Blood Pressure 137/87 H 137/87 H 167/96 H Blood Pressure Mean 103 103 119 Pulse Ox 93 95 99 Oxygen Delivery Method Room Air Nasal Cannula Oxygen Flow Rate (L/min) 2 08/03/23 15:00 08/03/23 15:00 08/03/23 15:10 Temperature 97.9 F Temperature Source Oral Pulse Rate 97 Respiratory Rate 18 Respiratory Effort Respiratory Depth Respiratory Pattern Blood Pressure 166/100 H Blood Pressure Mean 122 Pulse Ox 97 86 100 Oxygen Delivery Method Nasal Cannula Room Air Nasal Cannula Oxygen Flow Rate (L/min) 2 2 08/03/23 15:44 08/03/23 16:00 08/03/23 14:20 Temperature 98.5 F Temperature Source Temporal Pulse Rate 96 102 H Respiratory Rate 16 19 H Respiratory Effort Respiratory Depth Respiratory Pattern Blood Pressure 152/94 H 155/96 H Blood Pressure Mean 113 115 Pulse Ox 97 97 97 Oxygen Delivery Method Nasal Cannula Nasal Cannula Nasal Cannula Oxygen Flow Rate (L/min) 2 2 2 08/03/23 16:12 Temperature Temperature Source Pulse Rate Respiratory Rate Respiratory Effort Normal Non-Labored Short of Breath Respiratory Depth Normal Respiratory Pattern Normal Blood Pressure Blood Pressure Mean Pulse Ox Oxygen Delivery Method Nasal Cannula Oxygen Flow Rate (L/min) 2 MDM MDM MDM Narrative Medical decision making narrative: HISTORY OF PRESENT ILLNESS: 72-year-old male presents with shortness of breath. States 3 days of increasing shortness of breath. States he recently increased his amlodipine dose from 5 to 10 mg per his computer lab assistant recommendation. States since this time he is been more short of breath especially with exertion. Denies any lower extremity edema. He denies any bleeding diathesis such as melena hematochezia hemoptysis or hematemesis. He denies any chest pain. Denies any palpitations. States he does have a cough that is productive of white sputum. Denies smoking. Denies fever. The patient denies recent surgery in the last 4 weeks or immobilization in the last 3 days, denies previous diagnosis of DVT or PE, hemoptysis, unilateral leg swelling or malignancy with treatment the last 6 months or palliative. No estrogen use noted. REVIEW OF SYSTEMS: Pertinent positives: Shortness of breath Pertinent negatives: Chest pain, lower extremity edema, hemoptysis, hematochezia or melena PHYSICAL EXAM: Nursing triage notes reviewed, Vital signs reviewed Constitutional: please see mdm HENT: MMM Eyes: Pupils equal round and reactive to light, Extraocular muscles intact Neck: No stridor, no JVD, full neck ROM Lungs: Clear to auscultation, No wheezing or rales. No increased work of mallika athing, no conversational dyspnea, no accessory muscle use, no nasal flaring. No respiratory distress noted Heart: Regular rate and rhythm, No murmurs, No rubs and No gallops, 2+ distal pulses (radial, femoral, posterior tibial) in all extremities Abdomen: Soft, there is no tenderness, rigidity, rebound or guarding, no obvious peritoneal signs, no palpable pulsatile abdominal masses, no auscultated abdominal bruit : No CVAT Extremities: No edema Neuro: No focal neurological deficits, cranial nerves II through XII intact, 5/5 strength in all extremities. Intact sensation to light touch in all extremities, 2+ reflexes bilateral patella tendons. Normal gait. No ataxia. Skin: No rash or lesions noted MEDICAL DECISION MAKING: Chief Complaint: Shortness of breath External records reviewed: No recent cardiac catheterizations, stress test or echocardiogram as noted in the chart Factors affecting care: nhistory of ureteral cancer, hypertension, Social determinants of health: Denies smoking History obtained from others: none Consults: Discussed case with hospitalist Dr. Garcia who accepted the patient to PCU, discussed with cardiology as well Dr. Rowland who recommended heparin and admit MDM Narrative: Patient was initially tachycardic, tachypneic otherwise afebrile. Patient became hypoxic at rest to 88%. Placed on 2 L nasal cannula. He was speaking in full sentences, had no respiratory distress. No emergent need for airway intervention I considered the following differential diagnosis: Pneumonia, COVID, flu, anemia, arrhythmia, ACS, PE ALL IMAGES (IF OBTAINED) HAVE BEEN PERSONALLY REVIEWED AND INTERPRETED BY MYSELF. EKG was sinus tachycardia with a rate of 102, right axis deviation, right bundle branch block, prolonged QT interval, right bundle branch block present on prior EKG from February 2023 Chest x-ray was read and reviewed myself shows evidence of bilateral infiltrates concerning for pneumonia CBC with no leukocytosis, baseline anemia, no thrombocytopenia No coagulopathy BMP with severe hypokalemia, mild hyponatremia, noted baseline CKD, BNP elevated consistent with increased ventricular stretch, increased transmural wall pressure Initial troponin elevated consistent myocardial ischemia The synthesis of the patient's history, physical exam, labs images suggest myocardial ischemia, electrolyte abnormality and a component of heart failure. Infiltrates on his chest x-ray are concerning for pneumonia however he does not have a fever or a white count. I discussed starting antibiotics however the hospitalist Dr. Garcia recommended against at this time and hold with a monitor on the floor. Recommended PCU admission. The patient and/or family, caregivers express understanding. The patient and/or family, caregivers agrees with the plan. Shared decision making: I will have a discussion with the patient and or visitors regarding risk/benefits of further testing or admission. They will be made aware of of the risk/benefits inherent in this decision they will be given the opportunity to voice understanding. Total critical care time today provided was at least 60 minutes. This excludes separately billable procedures. Critical care time (if documented) is secondary to the patient having high probability of clinically significant/life threatening deterioration in the patient's condition which required my urgent intervention. Impression: 1. Shortness of breath 2. Hypoxia 3. NSTEMI 4. Hypokalemia Dispo: admit This note was generated with Dragon dictation software. It may contain incorrect words, spelling, and punctuation that were not noted in review of the chart prior to signing. Lab Data Labs: Laboratory Results - last 24 hr 08/03/23 08/03/23 14:40 15:30 WBC 10.4 RBC 4.50 L Hgb 11.4 L Hct 36.6 L MCV 81.3 MCH 25.3 L MCHC 31.1 L RDW Std Deviation 45.3 H RDW Coeff of Raghavendra 15.2 H Plt Count 423 MPV 10.3 Immature Gran % (Auto) 0.500 Neut % (Auto) 70.8 H Lymph % (Auto) 17.8 L Ches[place] % (Auto) 10.0 Eos % (Auto) 0.5 Baso % (Auto) 0.4 Absolute Neuts (auto) 7.4 Absolute Lymphs (auto) 1.86 Nucleated RBC % 0 PT 14.3 INR 1.1 APTT 32.7 Sodium 134 L Potassium 2.7 L* Chloride 96 L Carbon Dioxide 29.0 Anion Gap 9 BUN 34 H Creatinine 2.02 H Estim Creat Clear Calc 34.03 Est GFR (MDRD) Af Amer 42 L Est GFR (MDRD) Non-Af 35 L BUN/Creatinine Ratio 16.8 Glucose 134 H Calcium 9.0 Troponin I High Sens 21357 H* B-Natriuretic Peptide 1259.2 H Radiography Diagnostic Testing: Clinical Impression(s) from Imaging Studies Chest X-Ray 08/03/23 14:47 IMPRESSION: Patchy bilateral pulmonary infiltrates worse in the left hemithorax. Electronically Signed: Jack Garcia MD at 14:57 EDT , Discharge Plan Triage Chief Complaint: Shortness of Breath ED Provider: Derrek Pineda Dx/Rx/DC Orders Primary Care Provider: David Baptiste
--- NOTE | 2023-08-03 14:20 | EKG12_ITS ---
Test Reason : SOB Blood Pressure : / mmHG Vent. Rate : 102 BPM Atrial Rate : 102 BPM P-R Int : 150 ms QRS Dur : 150 ms QT Int : 404 ms P-R-T Axes : 025 053 -21 degrees QTc Int : 526 ms Sinus tachycardia Possible Left atrial enlargement Right bundle branch block T wave abnormality, consider inferior ischemia Abnormal ECG Confirmed by CAYDEN JONES, BEATA ([id number]), deputy editor in chief RONNY JAMES ([id number]) on 08/08/2023 10:06:33 AM Referred By: Confirmed By:CHALO RODARTE MD
--- NOTE | 2023-08-03 14:47 | RAD_ITS ---
STUDY: X-RAY CHEST REASON FOR EXAM: Male, 72 years old. SOB TECHNIQUE: Single AP portable view of the chest. COMPARISON: None. FINDINGS: EKG electrodes are seen. Bilateral pulmonary infiltrates more prominent on the right side. Radiographic follow-up recommended. There is no demonstrated pleural abnormality. Normal size heart. Normal mediastinum and salazar. Normal visualized pulmonary arteries. Normal visualized aortic arch and descending thoracic aorta. There are degenerative changes of the visualized thoracic spine. Normal visualized ribs, clavicles, and shoulders. There is no demonstrated abnormality of the visualized soft tissue structures of the upper abdomen. RAD/Chest 1 View (Portable) IMPRESSION: Patchy bilateral pulmonary infiltrates worse in the left hemithorax. Electronically Signed: Jack Garcia MD at 14:57 EDT ,
[2023-08-03 14:53] LABS: Absolute Lymphocyte Count 1.86 X10^3/uL (0.83-4.51); Absolute Neutrophil Count 7.4 X10^3/uL (2.0-7.7); Basophil# 0.04 X10^3/uL; Basophil% 0.4 % (0-1); Eosinophil# 0.05 X10^3/uL; Eosinophils% 0.5 % (0-5); Hematocrit 36.6 % (40-54); Hemoglobin 11.4 g/dL (13.0-16.5); Lymphocyte # 1.86 X10^3/ul (0.83-4.51); Lymphocyte % 17.8 % (19-41); Mean Corp Hgb Conc 31.1 g/dL (32-36); Mean Corpuscular Hgb 25.3 pg (27.0-32.0); Mean Corpuscular Volume 81.3 fL (80-94); Mean Platelet Vol. 10.3 fl (6.2-12.0); Monocyte# 1.04 X10^3/uL; NRBC Flagged by Analyzer 0 % (0-5); Neutrophil # 7.39 X10^3/uL (2.7-7.7); Neutrophil % 70.8 % (47-70); Platelet Count 423 K/mm3 (150-450); RBC Distribution Width CV 15.2 % (11.6-14.6); RBC Distribution Width SD 45.3 fl (35.1-43.9); White Blood Count 10.4 K/mm3 (4.4-11.0)
[2023-08-03 15:07] LABS: BNP,B-Type NATRIURETIC PEPTIDE 1259.2 pg/mL (0-100)
--- NOTE | 2023-08-03 15:15 | CPS ---
Patient sat 86% on RA while talking, placed on 2 liters and patient stopped talking for a few minutes and was 100%.
[2023-08-03 15:18] LABS: Anion Gap 9 (5-15); BUN 34 mg/dL (7-18); BUN/Creat Ratio 16.8 RATIO (10-20); Chloride 96 mmol/L (98-107); Creatinine, Serum 2.02 mg/dL (0.70-1.30); EST Glomerular Filtration Rate 35 mL/min (>60); Est Glom Filt Rate - Afr Amer 42 mL/min (>60); Estimated Creatinine Clearance 34.03 ml/min; Glucose 134 mg/dL (74-106); Potassium 2.7 mmol/L (3.5-5.1); Sodium Level 134 mmol/L (136-145); Troponin-I HS 13391 pg/mL (3.0-78.0)
[2023-08-03] MEDS: Heparin Injection (Vial) 5,000 UNIT/ML VIAL IV ×2 (15:48→22:12)
[2023-08-03] MEDS: HEPARIN/D5w 25,000 UNITS 25,000 UNITS/250 ML IV.SOLN. 10 UNITS CONT INF (15:48)
[2023-08-03 15:55] LABS: International Normalized Ratio 1.1; Partial Thromboplast Time 32.7 Seconds (24.1-36.2); Prothrombin Time (Protime)PT. 14.3 SECONDS (11.7-14.9)
[2023-08-03] MEDS: Potassium Chloride Oral Soln 20 MEQ/15 ML UDC 40 MEQ PO (16:03)
[2023-08-03] MEDS: Aspirin 325 MG Tablet PO (16:44)
--- NOTE | 2023-08-03 16:44 | EKG12_ITS ---
Test Reason : admission ekg Blood Pressure : / mmHG Vent. Rate : 096 BPM Atrial Rate : 096 BPM P-R Int : 130 ms QRS Dur : 150 ms QT Int : 418 ms P-R-T Axes : 049 070 -08 degrees QTc Int : 528 ms Normal sinus rhythm Right bundle branch block T wave abnormality, consider inferior ischemia Abnormal ECG Confirmed by CAYDEN JONES, BEATA ([id number]), food editor RONNY JAMES ([id number]) on 08/08/2023 10:11:24 AM Referred By: Confirmed By:CHALO RODARTE MD
--- NOTE | 2023-08-03 17:07 | NURSING ---
PCU NSTEMI,, HYPOXIA APOORVA
--- NOTE | 2023-08-03 17:25 | HP.PCM.HOS_ITS ---
HPI - General General Date of Admission: 08/03/23 Date of Service: 08/03/23 Chief Complaint: shortness of breath HPI Narrative DINH SIN, is a 72 M who presents with shortness of breath with exertion. Approximately 2 days ago, patient started noticing dyspnea on exertion. Patient was concerned that it may have been related with some medications where he was transitioning off lisinopril and increasing his amlodipine. Saw his nephro logist today who referred him to his primary care doctor but then directed him to the emergency room. In emergency room, patient had bilateral hazy infiltrates on chest x-ray, troponin was 13,391 and BNP was 1259. Case was discussed with Dr. Rowland, of cardiology. Patient was started on a heparin drip and did receive aspirin. Patient has never had a myocardial infarction before. Patient states that since he has had a nephrectomy, partial cystectomy, he has lost nearly 20 pounds since February. He denies any lower extremity edema. [facility] Medical History Bladder disease Cancer Former smoker Prostate disease Wears glasses Home Medications amlodipine 5 mg tablet 5 mg PO DAILY BP 01/26/23 [History Last Taken 08/03/23] chlorthalidone 25 mg tablet 25 mg PO DAILY BP 01/26/23 [History Last Taken 08/03/23] Allergy/AdvReac Type Severity Reaction Status Date / Time No Known Allergies Allergy Verified 08/03/23 13:48 Surgical History History of cataract extraction with lens replacement (~2015) History of hernia repair (~1975) History of surgery of head (~1991) History of toe surgery History of transurethral resection of bladder tumor (TURBT) Social History Smoking Status: Former smoker ROS ROS Narrative Subjective chills, no fever. Scratchy throat. All review of systems were negative except as mentioned above in the history of present illness and the other review of systems. Vital Signs Vital Signs Vital Signs: 08/03/23 13:44 08/03/23 13:47 08/03/23 14:47 Temperature 35.4 C L 35.4 C L 36.7 C Temperature Source Temporal Temporal Oral Pulse Rate 118 H 118 H 99 Respiratory Rate 22 H 20 H 16 Respiratory Effort Respiratory Depth Respiratory Pattern Blood Pressure 137/87 H 137/87 H 167/96 H Blood Pressure Mean 103 103 119 Pulse Ox 93 95 99 Oxygen Delivery Method Room Air Nasal Cannula Oxygen Flow Rate (L/min) 2 08/03/23 15:00 08/03/23 15:00 08/03/23 15:10 Temperature 36.6 C Temperature Source Oral Pulse Rate 97 Respiratory Rate 18 Respiratory Effort Respiratory Depth Respiratory Pattern Blood Pressure 166/100 H Blood Pressure Mean 122 Pulse Ox 97 86 100 Oxygen Delivery Method Nasal Cannula Room Air Nasal Cannula Oxygen Flow Rate (L/min) 2 2 08/03/23 15:44 08/03/23 16:00 08/03/23 14:20 Temperature 36.9 C Temperature Source Temporal Pulse Rate 96 102 H Respiratory Rate 16 19 H Respiratory Effort Respiratory Depth Respiratory Pattern Blood Pressure 152/94 H 155/96 H Blood Pressure Mean 113 115 Pulse Ox 97 97 97 Oxygen Delivery Method Nasal Cannula Nasal Cannula Nasal Cannula Oxygen Flow Rate (L/min) 2 2 2 08/03/23 16:12 08/03/23 17:00 Temperature 36.6 C Temperature Source Tympanic Pulse Rate 105 H Respiratory Rate 18 Respiratory Effort Normal Non-Labored Short of Breath Respiratory Depth Normal Respiratory Pattern Normal Blood Pressure 159/95 H Blood Pressure Mean 116 Pulse Ox 97 Oxygen Delivery Method Nasal Cannula Nasal Cannula Oxygen Flow Rate (L/min) 2 2 Weight Weight: 83.642 kg Body Mass Index (BMI) 29.7 Physical Exam Const alert and no apparent distress Constitutional Narrative: Up in bed. No respiratory distress. No conversational dyspnea. HEENT normocephalic and moist oral mucous membranes Eyes conjunctivae normal Eyes Narrative: No icterus Neck no lymphadenopathy and no JVD Resp Resp Narrative: Bibasilar crackles clear in the upper lobes. Cardio regular rate, regular rhythm, S1 normal heart sound and S2 normal heart sound GI normal to inspection, nondistended, normoactive bowel sounds, soft to palpation, non-tender, non-distended and hepatosplenomegaly Extremity normal to inspection and no clubbing, cyanosis or edema Neuro moves all extremities Sensorium / Orientation: awake and alert Psych Mood & Affect: anxious Results Lab / Micro Data Attestation: I reviewed the patient's lab results. 08/03/23 14:40 08/03/23 14:40 Labs: Laboratory Results - last 24 hr 08/03/23 14:40: WBC 10.4, RBC 4.50 L, Hgb 11.4 L, Hct 36.6 L, MCV 81.3, MCH 25.3 L, MCHC 31.1 L, RDW Std Deviation 45.3 H, RDW Coeff of Raghavendra 15.2 H, Plt Count 423, MPV 10.3, Immature Gran % (Auto) 0.500, Neut % (Auto) 70.8 H, Lymph % (Auto) 17.8 L, Ches[place] % (Auto) 10.0, Eos % (Auto) 0.5, Baso % (Auto) 0.4, Absolute Neuts (auto) 7.4, Absolute Lymphs (auto) 1.86, Nucleated RBC % 0, Sodium 134 L, Potassium 2.7 L*, Chloride 96 L, Carbon Dioxide 29.0, Anion Gap 9, BUN 34 H, Creatinine 2.02 H, Estim Creat Clear Calc 34.03, Est GFR (MDRD) Af Amer 42 L, Est GFR (MDRD) Non-Af 35 L, BUN/Creatinine Ratio 16.8, Glucose 134 H, Calcium 9.0, Troponin I High Sens 23964 H*, B-Natriuretic Peptide 1259.2 H 08/03/23 15:30: PT 14.3, INR 1.1, APTT 32.7 EKG Initial EKG: Attestation: I personally reviewed and interpreted this EKG as follows: Prior EKG tracings: available for review EKG Rhythm Intrepretation: Sinus Rhythm Imaging Radiology Impression Chest X-Ray 08/03/23 14:47 IMPRESSION: Patchy bilateral pulmonary infiltrates worse in the left hemithorax. Electronically Signed: Jack Garcia MD at 14:57 EDT , Assessment & Plan Assessment/Plan (1) Non-STEMI (non-ST elevated myocardial infarction): (2) Pneumonia: PLAN: Plan Non-STEMI * Troponins of 13,391 * Patient received aspirin emergency room and will continue on the floor. Patient was started on heparin drip in the emergency room and will continue on floor. * Consult cardiology * Check echocardiogram Suspected pneumococcal pneumonia * Patient with bilateral infiltrates though he does not have a white count nor fever. Clinically he does not appear to be volume overloaded. * Will start antibiotics with ceftriaxone azithromycin * Check sputum culture. Check strep and Legionella urinary antigens. Check COVID, influenza and RSV. * Pulmonary toilet Chronic kidney disease stage IIIb * Patient sees Dr. Terry as outpatient. 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 * Monitor closely particularly if the Patient needs a cardiac catheterization. * No need for renal replacement therapy at this time. Hypertension * Continue with amlodipine. Hold off on chlorthalidone for now VTE prophylaxis: Not indicated as patient is already anticoagulated CODE STATUS: Addressed with the patient. Patient wished to be full code. Case was discussed with the patient's who is at bedside as well as the patient's 's friend. Charges/Coding Visit Charges Inpatient E&M: 71715 Init Hosp L3
--- NOTE | 2023-08-03 17:36 | EKG12_ITS ---
Test Reason : Blood Pressure : / mmHG Vent. Rate : 103 BPM Atrial Rate : 103 BPM P-R Int : 142 ms QRS Dur : 140 ms QT Int : 402 ms P-R-T Axes : 043 068 -15 degrees QTc Int : 526 ms Sinus tachycardia Right bundle branch block T wave abnormality, consider inferior ischemia Abnormal ECG Confirmed by CAYDEN JONES, BEATA ([id number]), visual effects editor RONNY JAMES ([id number]) on 08/08/2023 10:06:03 AM Referred By: Confirmed By:CHALO RODARTE MD
--- NOTE | 2023-08-03 17:36 | ECHOD_ITS ---
Reason For Study: CHEST PAIN Procedure This was a 2D Doppler, Color Flow transthoracic echocardiogram. The study was technically difficult. Definity deferred due to nephrectomy. Exam performed in department. Left Ventricle Normal LV size. The estimated ejection fraction is 55 %. Unable to assess diastolic dysfunction. No regional wall motion abnormalities noted. Right Ventricle Moderately dilated right ventricle. Normal systolic function. Atria The left and right atria are normal. No doppler evidence for ASD. Mitral Valve There is moderate mitral annular calcification. There is no mitral valve stenosis. Trivial mitral valve insufficiency. Tricuspid Valve There is no tricuspid stenosis. Unable to estimate RV systolic pressure due to insufficient tricuspid regurgitant envelope. Trivial tricuspid valve insufficiency. Aortic Valve Trisinus/trileaflet aortic valve. Aortic sclerosis, no stenosis. No aortic valve insufficiency. Pulmonic Valve There is no pulmonic valvular stenosis. No pulmonic valve insufficiency. Great Vessels Normal aortic root. Pericardium/Pleural No pericardial effusion. MMode/2D Measurements & Calculations LVIDd: 5.1 cm IVSd: 1.1 cm Ao root diam: 3.4 cm LVIDs: 3.9 cm LVPWd: 1.3 cm FS: 22.6 % LAV(MOD-bp): 51.3 ml LA A4 area: 16.6 cm2 LA dimension(2D): 4.3 cm LAV(MOD-bp) Indexed: 26.1 ml/m2 LAV(MOD-sp2): 57.5 ml LAV(MOD-sp4): 38.5 ml TAPSE: 1.6 cm RA A4 area: 13.9 cm2 Time Measurements MV dec time: 0.05 sec Doppler Measurements & Calculations MV E max ilya: 133.8 cm/sec Lat Peak E' Ilya: 15.2 cm/sec Med Peak E' Ilya: 8.2 cm/sec MV A max ilya: 119.2 cm/sec E/E' lat: 8.8 E/E' med: 16.2 MV E/A: 1.1 MV V2 max: 144.6 cm/sec Ao V2 max: 100.7 cm/sec LV V1 max: 86.7 cm/sec MV max P.4 mmHg Ao max P.1 mmHg LV V1 max P.0 mmHg MV V2 mean: 106.0 cm/sec Ao V2 mean: 57.3 cm/sec LV V1 mean P.3 mmHg MV mean P.9 mmHg Ao mean P.8 mmHg LV V1 mean: 50.8 cm/sec MV V2 VTI: 25.0 cm Ao V2 VTI: 14.9 cm LV V1 VTI: 15.5 cm AV (velocity ratio): 1.0 ECHO/Echo Complete Interpretation Summary The estimated ejection fraction is 55 %. Unable to assess diastolic dysfunction. Moderately dilated right ventricle. Trivial mitral valve insufficiency. Ordering Physician: Arnaud Garcia Referring Physician: NUNO SALAZAR Performed By: Armida Stein and Student
[2023-08-03 18:24] LABS: Troponin-I HS 15095 pg/mL (3.0-78.0)
[2023-08-03] MEDS: Azithromycin 500 MG in Dextrose 5%-Water (250mL Bag) 250 ML 250 MG IV (18:42)
[2023-08-03] MEDS: Ceftriaxone 1 GM/50 ML BAG IV (20:19)
[2023-08-03 21:51] LABS: Partial Thromboplast Time 38.4 Seconds (24.1-36.2)
[2023-08-03] MEDS: guaiFENesin 600 MG Tablet PO (21:53)
[2023-08-03 22:13] LABS: Troponin-I HS 13302 pg/mL (3.0-78.0)
[2023-08-04] VITALS (25 sets, daily range): BP systolic 107–159; BP diastolic 59–111; PULSE 102–125; RESP 12–34; TEMP 36.1–36.6; O2SAT 86–98
[2023-08-04 04:40] LABS: Absolute Lymphocyte Count 1.55 X10^3/uL (0.83-4.51); Absolute Neutrophil Count 7.4 X10^3/uL (2.0-7.7); Basophil# 0.06 X10^3/uL; Basophil% 0.6 % (0-1); Eosinophil# 0.09 X10^3/uL; Eosinophils% 0.9 % (0-5); Hematocrit 35.3 % (40-54); Hemoglobin 10.9 g/dL (13.0-16.5); Lymphocyte # 1.55 X10^3/ul (0.83-4.51); Lymphocyte % 15.3 % (19-41); Mean Corp Hgb Conc 30.9 g/dL (32-36); Mean Corpuscular Hgb 25.2 pg (27.0-32.0); Mean Corpuscular Volume 81.5 fL (80-94); Mean Platelet Vol. 10.5 fl (6.2-12.0); Monocyte# 0.97 X10^3/uL; Monocyte% 9.6 % (0-10); NRBC Flagged by Analyzer 0 % (0-5); Neutrophil # 7.38 X10^3/uL (2.7-7.7); Platelet Count 413 K/mm3 (150-450); RBC Distribution Width CV 15.3 % (11.6-14.6); RBC Distribution Width SD 45.3 fl (35.1-43.9); Red Blood Count 4.33 M/mm3 (4.6-6.2); White Blood Count 10.1 K/mm3 (4.4-11.0)
[2023-08-04 04:52] LABS: Partial Thromboplast Time 47.6 Seconds (24.1-36.2)
[2023-08-04 05:15] LABS: Anion Gap 8 (5-15); BUN 34 mg/dL (7-18); BUN/Creat Ratio 17.6 RATIO (10-20); Calcium,Total 8.6 mg/dL (8.5-10.1); Chloride 99 mmol/L (98-107); Cholesterol 181 mg/dL (200); Creatinine, Serum 1.93 mg/dL (0.70-1.30); EST Glomerular Filtration Rate 37 mL/min (>60); Est Glom Filt Rate - Afr Amer 44 mL/min (>60); Estimated Creatinine Clearance 36.31 ml/min; Glucose 120 mg/dL (74-106); High Density Lipoprotein 51 mg/dL; Sodium Level 136 mmol/L (136-145); Triglycerides 130 mg/dL; Very Low Density Lipoprotein 26 mg/dL (5-40)
[2023-08-04 05:16] LABS: Potassium 2.6 mmol/L (3.5-5.1)
[2023-08-04] MEDS: Potassium Chloride Oral Tablet 20 MEQ 60 MEQ PO (06:00)
--- NOTE | 2023-08-04 06:38 | EKG12_ITS ---
Test Reason : Blood Pressure : / mmHG Vent. Rate : 123 BPM Atrial Rate : 123 BPM P-R Int : 142 ms QRS Dur : 150 ms QT Int : 416 ms P-R-T Axes : 074 084 003 degrees QTc Int : 595 ms Sinus tachycardia Right bundle branch block T wave abnormality, consider inferior ischemia Abnormal ECG When compared with ECG of 03-AUG-2023 19:54, MANUAL COMPARISON REQUIRED, DATA IS UNCONFIRMED Confirmed by ERIC JONES, FLETCHER ([id number]), video tape editor RONNY JAMES ([id number]) on 08/08/2023 9:57:32 AM Referred By: Keyla Confirmed By:FLETCHER REYES MD
[2023-08-04] MEDS: Albuterol 2.5 MG/3 ML VIAL.NEB. INHALATION ×2 (06:43→15:02)
[2023-08-04] MEDS: LORazepam 2 MG/ML Syringe 0.25 MG IV (08:03)
[2023-08-04] MEDS: 0.9% Saline Lock 10 ML Syringe IV ×5 (08:04→23:47)
[2023-08-04] MEDS: Aspirin E.C. 81 MG Tablet PO (08:05)
[2023-08-04] MEDS: Potassium Chloride 10mEq/100mL 10 MEQ/100 ML IV.SOLN. 100 MEQ IV BOLUS ×3 (09:15→11:18)
--- NOTE | 2023-08-04 09:48 | CASEMGMT ---
BARRY BONILLA Assessment Face to Face with patient for initial transition planning/care coordination assessment. BARRY BONILLA introduced self and role at [facility], pt voices understanding. Pt is A&Ox4 and is resting comfortably in bed and is calm. Care providers, pharmacy, and demographics verified. Admitting dx: NSTEMI PCP: Emile Specialists: Harrison Watts Preferred [facility]acy: [facility] Insurance: [facility] A/B, [employer] for life Prescription Benefit: Yes LNOK: Duc Irizarry Living Arrangements: Pt lives with his in a 2 story home with a BM with HR throughout and 2 steps to enter ADLs/IADLs: Ind Transportation: Self, Friend DME: [employer] but does not use. Shower GB. BP Cuff. P Ox. Pt is on 3L O2 now. Pt does not wear home O2 or PAP therapy. A local list of in-network DME companies provided to the pt. Pt chose [employer] for potential home O2 needs. CM to follow. HHC/SNF: Denies history or needs Pt?s goal: Home Plan: Pt 6-click is 24. Pt denies the need for HH, OP therapy, or SNF placement at this time. CM to follow for possible home O2 and any other additional needs prior to DC home. Hailee Méndez RN, CM
[2023-08-04 09:50] LABS: Magnesium 2.6 mg/dL (1.6-2.6); Phosphorus 3.9 mg/dL (2.5-4.9)
[2023-08-04 11:12] LABS: Partial Thromboplast Time 41.9 Seconds (24.1-36.2)
[2023-08-04] MEDS: guaiFENesin 600 MG Tablet PO (12:01)
[2023-08-04] MEDS: amLODIPine 5 MG Tablet PO (12:01)
[2023-08-04] MEDS: HEPARIN/D5w 25,000 UNITS 25,000 UNITS/250 ML IV.SOLN. 14 UNITS CONT INF (12:41)
[2023-08-04 13:39] LABS: Anion Gap 11 (5-15); BUN 36 mg/dL (7-18); BUN/Creat Ratio 17.1 RATIO (10-20); Chloride 97 mmol/L (98-107); EST Glomerular Filtration Rate 33 mL/min (>60); Est Glom Filt Rate - Afr Amer 40 mL/min (>60); Estimated Creatinine Clearance 33.37 ml/min; Glucose 160 mg/dL (74-106); Potassium 3.4 mmol/L (3.5-5.1); Sodium Level 135 mmol/L (136-145)
[2023-08-04] MEDS: Furosemide 20 MG/2 ML VIAL IV (14:14)
--- NOTE | 2023-08-04 14:15 | PCM.CONS.C ---
Assessment & Plan Assessment/Plan (1) Non-STEMI (non-ST elevated myocardial infarction): PLAN: Agree with keeping the patient on IV heparin. He has signs and symptoms of congestive heart failure. Agree with IV Lasix. Will change the dose to 40 mg IV twice daily. Monitor potassium closely as he was hypokalemic on presentation. Patient is currently unable to lie down flat. He does not have any anginal symptoms. Once his heart failure symptoms have improved and patient is able to lie down flat we will proceed with coronary angiography. 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 Explained the risks and benefits of coronary angiography including the risk of renal failure requiring dialysis. Patient understands and is willing to proceed if required. Differential diagnosis for patient's condition includes PE. If he had normal kidney function we would have proceeded with CTA. However in order to minimize risk of renal failure we will hold off on CTA at this time. He is anyway on IV heparin. If coronary angiography does not reveal any significant culprit lesions then we will proceed with CTA to look for PE. HPI Consult Data Date of Consult: 08/04/23 HPI Narrative Reason for Consultation: Non-STEMI, CHF HPI Narrative: DINH SIN, is a 72 M who presents with shortness of breath. Patient states that her shortness of breath started about a week back and has been progressively getting worse. He denies any significant chest pain on presentation. About 5 days back he had some chest discomfort but the previously he had done some physical work and thought his chest discomfort was related to that. In the emergency room patient was hypoxic and required oxygen by nasal cannula. He also had a high-sensitivity troponin of around 13,000 which peaked at around 15,000 and came down in the 13,000s again. Patient's proBNP was also around 1300. His potassium was 2.6 and is being replaced. Patient has symptoms of orthopnea and cough with pink frothy expectoration. He was initially started on antibiotics but this has been stopped now and he has been started on IV Lasix. His 2D echo revealed preserved LV systolic function. His RV appears to be dilated. Review of systems: All systems reviewed. All else is negative except that in [facility] Medical History Bladder disease Cancer Former smoker Prostate disease Wears glasses Home Medications amlodipine 5 mg tablet 5 mg PO DAILY BP 10/18/23 [History Last Taken 08/03/23] chlorthalidone 25 mg tablet 25 mg PO DAILY BP 01/26/23 [History Last Taken 08/03/23] Allergy/AdvReac Type Severity Reaction Status Date / Time No Known Allergies Allergy Verified 08/03/23 13:48 Surgical History History of cataract extraction with lens replacement (~2015) History of hernia repair (~1975) History of surgery of head (~1991) History of toe surgery History of transurethral resection of bladder tumor (TURBT) Social History Smoking Status: Former smoker Physical Exam Const alert and oriented x3 HEENT normocephalic Eyes no scleral icterus Neck Neck Narrative: Jugular vein is distended Resp Resp Narrative: Bilateral crackles Cardio regular rate Extremity no pedal edema Risk Stratification Risk Stratification Applicable: No Charges/Coding Visit Charges Inpatient E&M: 92572 Init Hosp L2 Objective Data Vital Signs: Vital Signs Temp Pulse Resp BP Pulse Ox O2 Del Method O2 Flow Rate 97.1 F L 121 H 22 H 128/88 H 93 Nasal Cannula 4 08/04/23 14:10 08/04/23 14:10 08/04/23 14:10 08/04/23 14:10 08/04/23 14:10 08/04/23 14:10 08/04/23 14:10 Oxygen Flow Rate (L/min) 4 Oxygen Delivery Method Nasal Cannula Weight: 192 lb Body Mass Index (BMI) 30.9 Intake & Output: Intake and Output for Last 24 Hours 08/02/23 08/03/23 08/04/23 23:59 23:59 23:59 Intake Total 489.5 / 489.5 477.31 / 477.31 Output Total 150 / 150 Balance 339.5 / 339.5 477.31 / 477.31 Lab / Micro Data 08/04/23 04:30 08/04/23 13:00 Labs: Laboratory Results - last 24 hr 08/03/23 14:40: WBC 10.4, RBC 4.50 L, Hgb 11.4 L, Hct 36.6 L, MCV 81.3, MCH 25.3 L, MCHC 31.1 L, RDW Std Deviation 45.3 H, RDW Coeff of Raghavendra 15.2 H, Plt Count 423, MPV 10.3, Immature Gran % (Auto) 0.500, Neut % (Auto) 70.8 H, Lymph % (Auto) 17.8 L, [place] % (Auto) 10.0, Eos % (Auto) 0.5, Baso % (Auto) 0.4, Absolute Neuts (auto) 7.4, Absolute Lymphs (auto) 1.86, Nucleated RBC % 0, Sodium 134 L, Potassium 2.7 L*, Chloride 96 L, Carbon Dioxide 29.0, Anion Gap 9, BUN 34 H, Creatinine 2.02 H, Estim Creat Clear Calc 34.03, Est GFR (MDRD) Af Amer 42 L, Est GFR (MDRD) Non-Af 35 L, BUN/Creatinine Ratio 16.8, Glucose 134 H, Calcium 9.0, Troponin I High Sens 03929 H*, B-Natriuretic Peptide 1259.2 H 08/03/23 15:30: PT 14.3, INR 1.1, APTT 32.7 08/03/23 17:50: Troponin I High Sens 71278 H* 08/03/23 21:20: Troponin I High Sens 96401 H* 08/03/23 21:48: APTT 38.4 H 08/04/23 04:30: WBC 10.1, RBC 4.33 L, Hgb 10.9 L, Hct 35.3 L, MCV 81.5, MCH 25.2 L, MCHC 30.9 L, RDW Std Deviation 45.3 H, RDW Coeff of Raghavendra 15.3 H, Plt Count 413, MPV 10.5, Immature Gran % (Auto) 0.600, Neut % (Auto) 73.0 H, Lymph % (Auto) 15.3 L, [place] % (Auto) 9.6, Eos % (Auto) 0.9, Baso % (Auto) 0.6, Absolute Neuts (auto) 7.4, Absolute Lymphs (auto) 1.55, Nucleated RBC % 0, APTT 47.6 H, Sodium 136, Potassium 2.6 L*, Chloride 99, Carbon Dioxide 29.0, Anion Gap 8, BUN 34 H, Creatinine 1.93 H, Estim Creat Clear Calc 36.31, Est GFR (MDRD) Af Amer 44 L, Est GFR (MDRD) Non-Af 37 L, BUN/Creatinine Ratio 17.6, Glucose 120 H, Calcium 8.6, Phosphorus 3.9, Magnesium 2.6, Triglycerides 130, Cholesterol 181, LDL Cholesterol 104, VLDL Cholesterol 26, HDL Cholesterol 51 08/04/23 10:50: APTT 41.9 H 08/04/23 13:00: Sodium 135 L, Potassium 3.4 L, Chloride 97 L, Carbon Dioxide 27.0, Anion Gap 11, BUN 36 H, Creatinine 2.10 H, Estim Creat Clear Calc 33.37, Est GFR (MDRD) Af Amer 40 L, Est GFR (MDRD) Non-Af 33 L, BUN/Creatinine Ratio 17.1, Glucose 160 H, Calcium 9.0 Micro: Microbiology 08/04/23 00:00 Sputum, Expectorated/Coughed Gram Stain - Final 08/03/23 21:57 Urine, Random Legionella Antigen - Final 08/03/23 21:57 Urine, Random Streptococcus pneumoniae Antigen (M - Final 08/03/23 18:30 Mucosa - Nose SARS-CoV-2, Influenza & RSV (PCR) - Final Cardiology Labs/Tests 08/03/23 14:40: WBC 10.4, RBC 4.50 L, Hgb 11.4 L, Hct 36.6 L, MCV 81.3, MCH 25.3 L, MCHC 31.1 L, Plt Count 423, MPV 10.3, Immature Gran % (Auto) 0.500, Neut % (Auto) 70.8 H, Lymph % (Auto) 17.8 L, [place] % (Auto) 10.0, Eos % (Auto) 0.5, Baso % (Auto) 0.4, Absolute Neuts (auto) 7.4, Nucleated RBC % 0, Sodium 134 L, Potassium 2.7 L*, Chloride 96 L, Carbon Dioxide 29.0, Anion Gap 9, BUN 34 H, Creatinine 2.02 H, Est GFR (MDRD) Af Amer 42 L, Est GFR (MDRD) Non-Af 35 L, BUN/Creatinine Ratio 16.8, Glucose 134 H, Calcium 9.0, B-Natriuretic Peptide 1259.2 H 08/03/23 15:30: PT 14.3, INR 1.1, APTT 32.7 08/03/23 21:48: APTT 38.4 H 08/04/23 04:30: WBC 10.1, RBC 4.33 L, Hgb 10.9 L, Hct 35.3 L, MCV 81.5, MCH 25.2 L, MCHC 30.9 L, Plt Count 413, MPV 10.5, Immature Gran % (Auto) 0.600, Neut % (Auto) 73.0 H, Lymph % (Auto) 15.3 L, [place] % (Auto) 9.6, Eos % (Auto) 0.9, Baso % (Auto) 0.6, Absolute Neuts (auto) 7.4, Nucleated RBC % 0, APTT 47.6 H, Sodium 136, Potassium 2.6 L*, Chloride 99, Carbon Dioxide 29.0, Anion Gap 8, BUN 34 H, Creatinine 1.93 H, Est GFR (MDRD) Af Amer 44 L, Est GFR (MDRD) Non-Af 37 L, BUN/Creatinine Ratio 17.6, Glucose 120 H, Calcium 8.6, Phosphorus 3.9, Magnesium 2.6, Triglycerides 130, Cholesterol 181, LDL Cholesterol 104, VLDL Cholesterol 26, HDL Cholesterol 51 08/04/23 10:50: APTT 41.9 H 08/04/23 13:00: Sodium 135 L, Potassium 3.4 L, Chloride 97 L, Carbon Dioxide 27.0, Anion Gap 11, BUN 36 H, Creatinine 2.10 H, Est GFR (MDRD) Af Amer 40 L, Est GFR (MDRD) Non-Af 33 L, BUN/Creatinine Ratio 17.1, Glucose 160 H, Calcium 9.0 Rhythm: EKG: ECHO: Stress Test: Cardiac Cath: PCI: CT Surgery: Holter monitor: EPS: PPM: CXR: Chest CT Scan: Radiography Diagnostic Testing: Radiology Impression Chest X-Ray 08/03/23 14:47 IMPRESSION: Patchy bilateral pulmonary infiltrates worse in the left hemithorax. Electronically Signed: Jack Garcia MD at 14:57 EDT , Echocardiogram 08/03/23 17:36 Interpretation Summary The estimated ejection fraction is 55 %. Unable to assess diastolic dysfunction. Moderately dilated right ventricle. Trivial mitral valve insufficiency. Ordering Physician: Arnaud Garcia Referring Physician: NUNO SALAZAR Performed By: Armida Stein and Student
[2023-08-04 17:38] LABS: Partial Thromboplast Time 43.8 Seconds (24.1-36.2)
[2023-08-04] MEDS: LORazepam 0.5 MG Tablet PO (17:51)
[2023-08-04] MEDS: Furosemide 40 MG/4 ML Vial IV (17:51)
--- NOTE | 2023-08-04 20:05 | PN.HOSP_ITS ---
Reason for Visit Reason for Visit: Diagnoses Non-ST elevation (NSTEMI) myocardial infarction (08/03/23) Pneumonia, unspecified organism (08/03/23) Subjective Subjective Patient was seen and examined today, I reviewed his medical records, I think t hat the patient most probably has acute congestive heart failure, echocardiogram today showed a normal EF, I have elected to take the patient off IV antibiotics at this point. I talked to cardiology about his care, cardiology did recommend that he undergo cardiac catheterization, due to his oxygen requirement however, he will not be able to undergo catheterization till he is able to lie flat. I started the patient on IV Lasix today Objective Data Objective Data Vital Signs: Vital Signs Temp Pulse Resp BP Pulse Ox O2 Del Method O2 Flow Rate 97.1 F L 120 H 34 H 107/59 L 90 Nasal Cannula 6 08/04/23 14:10 08/04/23 18:00 08/04/23 18:00 08/04/23 18:00 08/04/23 18:00 08/04/23 18:00 08/04/23 18:00 Oxygen Flow Rate (L/min) 6 Oxygen Delivery Method Nasal Cannula Weight: 87.09 kg Body Mass Index (BMI) 30.9 Intake & Output: Intake and Output for Last 24 Hours 08/02/23 08/03/23 08/04/23 23:59 23:59 23:59 Intake Total 489.5 / 489.5 548.48 / 548.48 Output Total 150 / 150 50 / 50 Balance 339.5 / 339.5 498.48 / 498.48 Lab / Micro Data 08/04/23 04:30 08/04/23 13:00 Labs: Laboratory Results - last 24 hr 08/03/23 21:20: Troponin I High Sens 51779 H* 08/03/23 21:48: APTT 38.4 H 08/04/23 04:30: WBC 10.1, RBC 4.33 L, Hgb 10.9 L, Hct 35.3 L, MCV 81.5, MCH 25.2 L, MCHC 30.9 L, RDW Std Deviation 45.3 H, RDW Coeff of Raghavendra 15.3 H, Plt Count 413 , MPV 10.5, Immature Gran % (Auto) 0.600, Neut % (Auto) 73.0 H, Lymph % (Auto) 15.3 L, [place] % (Auto) 9.6, Eos % (Auto) 0.9, Baso % (Auto) 0.6, Absolute Neuts (auto) 7.4, Absolute Lymphs (auto) 1.55, Nucleated RBC % 0, APTT 47.6 H, Sodium 136, Potassium 2.6 L*, Chloride 99, Carbon Dioxide 29.0, Anion Gap 8, BUN 34 H, Creatinine 1.93 H, Estim Creat Clear Calc 36.31, Est GFR (MDRD) Af Amer 44 L, Est GFR (MDRD) Non-Af 37 L, BUN/Creatinine Ratio 17.6, Glucose 120 H, Calcium 8.6, Phosphorus 3.9, Magnesium 2.6, Triglycerides 130, Cholesterol 181, LDL Cholesterol 104, VLDL Cholesterol 26, HDL Cholesterol 51 08/04/23 10:50: APTT 41.9 H 08/04/23 13:00: Sodium 135 L, Potassium 3.4 L, Chloride 97 L, Carbon Dioxide 27.0, Anion Gap 11, BUN 36 H, Creatinine 2.10 H, Estim Creat Clear Calc 33.37, Est GFR (MDRD) Af Amer 40 L, Est GFR (MDRD) Non-Af 33 L, BUN/Creatinine Ratio 17.1, Glucose 160 H, Calcium 9.0 08/04/23 17:10: APTT 43.8 H Micro: Microbiology 08/04/23 00:00 Sputum, Expectorated/Coughed Gram Stain - Final 08/03/23 21:57 Urine, Random Legionella Antigen - Final 08/03/23 21:57 Urine, Random Streptococcus pneumoniae Antigen (M - Final 08/03/23 18:30 Mucosa - Nose SARS-CoV-2, Influenza & RSV (PCR) - Final Radiography Diagnostic Testing: Radiology Impression Echocardiogram 08/03/23 17:36 Interpretation Summary The estimated ejection fraction is 55 %. Unable to assess diastolic dysfunction. Moderately dilated right ventricle. Trivial mitral valve insufficiency. Ordering Physician: Arnaud Garcia Referring Physician: NUNO SALAZAR Performed By: Armida Stein and Student Physical Exam Const alert, oriented x3, no apparent distress and healthy appearing General Appearance: cooperative, well kempt and well developed Orientation / Consciousness: awake, oriented to person, oriented to place and oriented to time HEENT normocephalic, head/scalp atraumatic and moist oral mucous membranes Eyes PERRL, EOMs intact bilaterally and conjunctivae normal Neck supple, no JVD, thyroid normal and no carotid bruits General: trachea midline Resp normal respiratory effort, no retractions and no use of accessory muscles Resp Narrative: Fine rales were noted at the patient's lung bases bilaterally Auscultation: rales bilateral base; Negative for rhonchi or wheezes Cardio regular rate, regular rhythm, S1 normal heart sound, S2 normal heart sound, no murmurs, no rub and no gallops GI normal to inspection, nondistended, normoactive bowel sounds, soft to palpation, non-tender and non-distended Extremity no clubbing, cyanosis or edema Skin no rashes or lesions noted General Skin Exam: no breakdown Neuro oriented x3, CN's II-XII intact bilaterally, moves all extremities, no focal motor deficits and no sensory deficits noted Sensorium / Orientation: awake, alert, oriented to person, oriented to place and oriented to time Speech: speech normal Psych affect normal Assessment & Plan Assessment/Plan (1) Non-STEMI (non-ST elevated myocardial infarction): PLAN: Plan 1. [id number] will need to undergo cardiac catheterization as soon as h is respiratory status improves, cardiology is participating in his care #2 acute diastolic congestive heart failure-patient will be given IV Lasix, labs will be monitored #3 hypoxia secondary to #2-pulse ox will be monitored #4 chronic kidney disease stage IIIb-complicates care, management, recovery, and prognosis #5 hypokalemia-patient was given IV potassium today, he will be given oral potas sium supplements I do not feel the patient has community-acquired pneumonia Total clinical time spent by myself addressing the patient's medical issues, reviewing all of his data, and collaborating with patient's care team: 50 minutes Charges/Coding Visit Charges Inpatient E&M: 06916 Subs Hosp L3
--- NOTE | 2023-08-04 21:00 | RAD_ITS ---
EXAM: XR CHEST, 1 VIEW CLINICAL INDICATION: worsening hypoxia TECHNIQUE: Frontal view of the chest. COMPARISON: 08/03/2023 FINDINGS: LUNGS AND PLEURAL SPACES: There is increasing airspace disease in the right upper and left lower lobe which may represent worsening pneumonia. No pneumothorax. No effusion. HEART: Unremarkable. Cardiac silhouette not enlarged. MEDIASTINUM: Central airways and mediastinal contour are unremarkable. BONES/JOINTS: Unremarkable. No acute fracture. SOFT TISSUES: Unremarkable. RAD/Chest 1 View (Portable) IMPRESSION: Increasing bilateral airspace disease which may represent worsening pneumonia. Electronically Signed: Aayush Monteiro MD at 22:14 EDT ,
[2023-08-04 21:29] LABS: Allen Test Positive; Base Excess 0 mmol/L (-2 to +2); Bicarbonate 25.3 mmol/L (22-26); Blood Gas Specimen Type ART; Mode Not entered; O2 Delivery Device NRB; PO2 80 mmHG (75-100); SITE R Radial; SO2 95 % (95-99); Total Carbon Dioxide 27 mmol/L; pH 7.36 (7.35-7.45)
[2023-08-05] VITALS (37 sets, daily range): BP systolic 98–143; BP diastolic 73–99; PULSE 106–125; RESP 12–42; TEMP 36.4–36.7; O2SAT 84–98; BMI 31.1
[2023-08-05 00:08] LABS: Partial Thromboplast Time 53.1 Seconds (24.1-36.2)
[2023-08-05] MEDS: 0.9% Saline Lock 10 ML Syringe IV ×3 (00:31→06:10)
[2023-08-05 03:50] LABS: Anion Gap 11 (5-15); BUN 50 mg/dL (7-18); BUN/Creat Ratio 20.5 RATIO (10-20); Calcium,Total 9.1 mg/dL (8.5-10.1); Chloride 97 mmol/L (98-107); Creatinine, Serum 2.44 mg/dL (0.70-1.30); EST Glomerular Filtration Rate 28 mL/min (>60); Est Glom Filt Rate - Afr Amer 34 mL/min (>60); Estimated Creatinine Clearance 28.72 ml/min; Glucose 180 mg/dL (74-106); Potassium 3.4 mmol/L (3.5-5.1); Sodium Level 135 mmol/L (136-145)
[2023-08-05] MEDS: Albuterol 2.5 MG/3 ML VIAL.NEB. INHALATION (04:31)
--- NOTE | 2023-08-05 04:54 | PCM.HOSP.N ---
Hospitalist Note Notified by nursing staff around 9 PM that patient had increased work of breathing and was requiring high flow nasal cannula with high breather mask to maintain adequate oxygen saturations. Saw patient at the bedside. Patient was sitting up in bedside chair and alert but did appear fairly fatigued. He was answering questions appropriately for me. He denied any pain or difficulty with breathing. He did note that he felt like he was working harder to breathe and that he was feeling very tired. He had been coughing up a frothy reddish sputum since earlier this morning and was continuing to do this over the past few hours. Nursing staff had discussed BiPAP with him but he was resistant to doing this for now, wanted to try high flow nasal cannula plus nonrebreather mask first. On chart review, echo from 08/03 showed normal EF but moderate RV dilation. Cardiology following, did have concern for possible PE. Patient has been on a heparin drip since admission. Plan was to have left heart cath done earlier today but patient was unable to lay flat, so he was started on IV Lasix 40 mg twice daily with hope of getting fluid off so that he could have catheter tomorrow. Patient has history of bladder cancer extending to the kidney with single nephrectomy about 1 year ago. Denies any history of DVT/PE. Does feel like his legs were somewhat swollen but denies any significant pain or discomfort in them at rest. Stat chest x-ray and ABG were obtained. Chest x-ray showed increasing bilateral airspace disease compared to previous. ABG appeared fairly benign. Patient has a history of CKD, creatinine appears to be about baseline but nursing staff noted that he had not had a significant amount of urine output since starting IV Lasix. Given his worsening respiratory status, decision was made to transfer patient to the ICU.
[2023-08-05] MEDS: Potassium Chloride 10mEq/100mL 10 MEQ/100 ML IV.SOLN. 100 MEQ IV BOLUS ×4 (05:30→11:23)
[2023-08-05] MEDS: HEPARIN/D5w 25,000 UNITS 25,000 UNITS/250 ML IV.SOLN. 16 UNITS CONT INF (06:09)
[2023-08-05 06:34] LABS: Partial Thromboplast Time 76.9 Seconds (24.1-36.2)
--- NOTE | 2023-08-05 09:29 | CON.PCM.CC_ITS ---
Assessment & Plan Assessment/Plan (1) Non-STEMI (non-ST elevated myocardial infarction): PLAN: Plan RECOMMENDATIONS: 1. Continue PAP therapy and wean FiO2 for saturations greater than 90%. 2. Continuous Lasix infusion as ordered. 3. Check procalcitonin. 4. Nephrology consultation. 5. Potassium repletion as needed. 6. Continue heparin infusion and obtain lower extremity Doppler study. IMPRESSIONS: 1. Acute hypoxemic respiratory failure Clinical suspicion for underlying decompensated heart failure with preserved ejection fraction in the setting of an NSTEMI. Lower suspicion for underlying pneumonia, given normal white blood cell count and afebrile status. I would recommend aggressive management of his underlying cardiac issues, including ongoing diuresis as tolerated by hemodynamics and renal function. While PE is yet another potential consideration, the patient's underlying renal insufficiency would preclude his ability to obtain a CTA chest. Therefore, lower extremity Dopplers were ordered. The patient remains on a heparin infusion, nonetheless. Will defer timing and need for coronary angiography to cardiology. In the interim, continue PAP therapy and wean FiO2 for saturations greater than 90%. 2. NSTEMI/acute decompensated heart failure with preserved ejection fraction Management as noted above. Will defer additional intervention/workup to cardiology. 3. Acute on chronic kidney disease Nephrology consultation will be obtained. Continue attempts at volume optimization as tolerated by hemodynamics and renal function. This note was generated with [employer] dictation software. It may contain incorrect words, spelling, and punctuation that were not noted in checking the note before signing. HPI Consult Data Date of Consult: 08/05/23 HPI Narrative Reason for Consultation: Acute hypoxemic respiratory failure HPI Narrative: The patient is a 72-year-old male, with a history as outlined below, who presented to the emergency department on August 02 with progressive exertional dyspnea. The patient has no pre-existing lung conditions. He stated that he does not utilize supplemental oxygen at his baseline. He has never been diagnosed with obstructive sleep apnea. The patient denied a history of VTE. The patient does have chronic kidney disease and follows with an outpatient wiper blender. On presentation to the emergency department, the patient was documented to be afebrile hemodynamically stable. He was initially documented to be saturating in the mid 90s on room air. Laboratory evaluation revealed a normal white blood cell count. Chemistry profile was notable for a sodium of 134, potassium of 2.7, chloride of 96 and creatinine of 2.02. Troponin was elevated at 13,391 with a BNP of 1259. Chest imaging demonstrated patchy bilateral infiltrates. Strep and urine Legionella antigens were negative. COVID, influenza and RSV PCR's were negative. Sputum culture was collected. The patient was subsequently admitted to the medical intensive care unit for further management. The patient was ultimately evaluated by cardiology over concerns for an NSTEMI. He was placed on a heparin infusion and echocardiogram was obtained. That study demonstrated normal LV size and function with an ejection fraction of 55%. Diastolic function was unable to be assessed. RVSP was unable to be estimated. This morning, the patient was initiated on a Lasix infusion. [facility] Medical History Bladder disease Cancer Former smoker Prostate disease Wears glasses Home Medications amlodipine 5 mg tablet 5 mg PO DAILY BP 01/26/23 [History Last Taken 08/03/23] chlorthalidone 25 mg tablet 25 mg PO DAILY BP 01/26/23 [History Last Taken 08/03/23] Allergy/AdvReac Type Severity Reaction Status Date / Time No Known Allergies Allergy Verified 08/03/23 13:48 Surgical History History of cataract extraction with lens replacement (~2015) History of hernia repair (~1975) History of surgery of head (~1991) History of toe surgery History of transurethral resection of bladder tumor (TURBT) Social History Smoking Status: Former smoker ROS ROS Narrative 10 systems were reviewed with pertinent positives as noted in the HPI above. Physical Exam Const alert and oriented x3 Constitutional Narrative: Currently tolerating BiPAP. Anxious in appearance. General Appearance: cooperative HEENT normocephalic and head/scalp atraumatic Eyes PERRL, EOMs intact bilaterally and conjunctivae normal Neck supple General: trachea midline Chest inspection of chest normal Resp Effort and Inspection: tachypneic Auscultation: rales, wheezes and diminished lung sounds Cardio S1 normal heart sound and S2 normal heart sound Rate: tachycardic GI normal to inspection, nondistended, normoactive bowel sounds Extremity no clubbing, cyanosis or edema Skin no rashes or lesions noted Neuro CN's II-XII intact bilaterally and no focal motor deficits Psych Mood & Affect: anxious Lab / Micro Data 08/04/23 04:30 08/05/23 03:04 Labs: Laboratory Results - last 24 hr 08/04/23 04:30: Phosphorus 3.9, Magnesium 2.6 08/04/23 10:50: APTT 41.9 H 08/04/23 13:00: Sodium 135 L, Potassium 3.4 L, Chloride 97 L, Carbon Dioxide 27.0, Anion Gap 11, BUN 36 H, Creatinine 2.10 H, Estim Creat Clear Calc 33.37, Est GFR (MDRD) Af Amer 40 L, Est GFR (MDRD) Non-Af 33 L, BUN/Creatinine Ratio 17.1, Glucose 160 H, Calcium 9.0 08/04/23 17:10: APTT 43.8 H 08/04/23 23:50: APTT 53.1 H 08/05/23 03:04: Sodium 135 L, Potassium 3.4 L, Chloride 97 L, Carbon Dioxide 27.0, Anion Gap 11, BUN 50 H, Creatinine 2.44 H, Estim Creat Clear Calc 28.72, Est GFR (MDRD) Af Amer 34 L, Est GFR (MDRD) Non-Af 28 L, BUN/Creatinine Ratio 20.5 H, Glucose 180 H, Calcium 9.1 08/05/23 06:18: APTT 76.9 H Micro: Microbiology 08/04/23 00:00 Sputum, Expectorated/Coughed Gram Stain - Final ABG Data ABG results: ABG 08/04/23 21:25 Specimen Type ART Sample Site R Radial pH 7.36 Bicarbonate Actual 25.3 Total CO2 27 Base Excess 0 O2 Saturation 95 O2 % 100.0 ABG pCO2 45.0 ABG pO2 80 Abhijit Test Positive O2 Delivery Device NRB Vent Mode Not entered Imaging Radiology Impression Echocardiogram 08/03/23 17:36 Interpretation Summary The estimated ejection fraction is 55 %. Unable to assess diastolic dysfunction. Moderately dilated right ventricle. Trivial mitral valve insufficiency. Ordering Physician: Arnaud Garcia Referring Physician: NUNO SALAZAR Performed By: Armida Stein and Student Chest X-Ray 08/04/23 21:00 IMPRESSION: Increasing bilateral airspace disease which may represent worsening pneumonia. Electronically Signed: Aayush Monteiro MD at 22:14 EDT , Charges/Coding Visit Charges Inpatient E&M: 53051 Init Hosp L3
--- NOTE | 2023-08-05 09:36 | VDLE_ITS ---
Reason For Study: Shortness of Breath RIGHT LEFT GSV is compressible with vein wall thickening GSV is compressible with vein wall noted throughout. thickening noted throughout. CFV is compressible, spontaneous, competent CFV is compressible, spontaneous, competent, and demonstrates pulsatile venous flow. and demonstrates pulsatile venous flow. FV is compressible, spontaneous, competent FV is compressible, spontaneous, competent and demonstrates pulsatile venous flow. and demonstrates pulsatile venous flow. POP V is compressible, spontaneous, competent POP V is compressible, spontaneous, and demonstrates pulsatile venous flow. competent and demonstrates pulsatile venous T/P Trunk is compressible. flow. PTV is compressible. T/P Trunk is compressible. Acute deep vein thrombosis is noted in the PTV is compressible. Per V. It is dilated and NONCOMPRESSIBLE. LT PerV is compressible. Procedure This is a venous duplex using B-mode, color flow and spectral Doppler. Exam performed portable in ICU/CCU. The exam was diagnostic. A preliminary report was called and/or faxed to Dr. Lopez. VL/Venous Duplex US - [place] Extrem Interpretation Summary Acute deep vein thrombosis is noted in the right peroneal vein. The remainder o f the right lower extremity deep venous system is patent and compressible. Deep veins of the left lower extremity are patent and compressible segmentally. There is no evidence of left lower extremi ty deep vein thrombosis. Valvular competence appears intact within the proximal deep venous systems bilaterally. Great saphenous veins are patent and compressible bilaterally, but demonstrate chronic vein wall thickening. Pulsatile flow is noted in the deep venous system bilaterally, whic h may be indicative of elevated central venous pressure (i.e. congestive heart failure, pulmonary h ypertension, etc.). Clinical correlation is advised. Ordering Physician: Jovanny Munoz Referring Physician: David Baptiste Performed By: Prem Rosales RVT
[2023-08-05] MEDS: Furosemide 500 MG in Empty Viaflex 50 mL 1 EACH CONT INF (10:09)
[2023-08-05] MEDS: Potassium Chloride Oral Tablet 20 MEQ 40 MEQ PO (10:15)
[2023-08-05] MEDS: amLODIPine 5 MG Tablet PO (10:15)
[2023-08-05] MEDS: guaiFENesin 600 MG Tablet PO ×2 (10:16→21:05)
[2023-08-05] MEDS: Aspirin E.C. 81 MG Tablet PO (10:17)
[2023-08-05 10:53] LABS: Procalcitonin 0.31 ng/mL (0.00-0.09)
[2023-08-05] MEDS: Morphine 2 MG/ML Syringe IV (11:44)
--- NOTE | 2023-08-05 12:43 | CON.PCM.RE_ITS ---
Assessment & Plan Assessment/Plan (1) Chronic kidney disease, stage 3b: PLAN: Baseline creatinine is around 1.9-2.0. Slight increase in creatinine 2.4 likely due to hemodynamic changes. Denies any obstructive symptoms. Admission creatinine was close to baseline. Other data. Troponins were significantly elevated on admission. BNP also significantly elevated. Chest x-ray looks pretty wet. Blood pressure is acceptable. Heart rate around 120. Currently on BiPAP. We will start Lasix drip today. Eventually he will need coronary angiogram. Suspicion for PE. Could not get CT PE protocol due to creatinine. He is already on anticoagulation. (2) TRENA (acute kidney injury): HPI Consult Data Date of Consult: 08/05/23 HPI Narrative Reason for Consultation: CKD stage IIIb, acute renal failure HPI Narrative: DINH SIN, is a 72 M who presents To the hospital with shortness of breath. Nephrology on consultation in view of his CKD. He is well-known to me from office. 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 After surgery, his baseline creatinine has been around 2.0. He was in the office on Tuesday with shortness of breath, was referred to the ER. Was found to have significant elevation in troponin, pulmonary edema on chest x- ray. Was admitted with diagnosis of non-ST elevation CA, has been on heparin d rip. Overnight his breathing has worsened. Currently on BiPAP. Urine output was minimal yesterday. Denies any difficulty passing urine. Appears short of breath. Heart rate is around 120. CT PE protocol could not be done. Renal Dopplers pending. He remains on heparin drip. [facility] [place] Medical History Bladder disease Cancer Former smoker Prostate disease Wears glasses Home Medications amlodipine 5 mg tablet 5 mg PO DAILY BP 01/26/23 [History Last Taken 08/03/23] chlorthalidone 25 mg tablet 25 mg PO DAILY BP 01/26/23 [History Last Taken 08/03/23] Allergy/AdvReac Type Severity Reaction Status Date / Time No Known Allergies Allergy Verified 08/03/23 13:48 Surgical History History of cataract extraction with lens replacement (~2015) History of hernia repair (~1975) History of surgery of head (~1991) History of toe surgery History of transurethral resection of bladder tumor (TURBT) Social History Smoking Status: Former smoker ROS ROS Narrative Negative except above Physical Exam Narrative Alert awake oriented x 3 no obvious distress no pallor no icterus no JVD s1s2 no murmurs lungs rales abdomen soft no organomegaly no edema no cyanosis Lab / Micro Data 08/04/23 04:30 08/05/23 03:04 Labs: Laboratory Results - last 24 hr 08/04/23 13:00: Sodium 135 L, Potassium 3.4 L, Chloride 97 L, Carbon Dioxide 27.0, Anion Gap 11, BUN 36 H, Creatinine 2.10 H, Estim Creat Clear Calc 33.37, Est GFR (MDRD) Af Amer 40 L, Est GFR (MDRD) Non-Af 33 L, BUN/Creatinine Ratio 17.1, Glucose 160 H, Calcium 9.0 08/04/23 17:10: APTT 43.8 H 08/04/23 23:50: APTT 53.1 H 08/05/23 03:04: Sodium 135 L, Potassium 3.4 L, Chloride 97 L, Carbon Dioxide 27.0, Anion Gap 11, BUN 50 H, Creatinine 2.44 H, Estim Creat Clear Calc 28.72, Est GFR (MDRD) Af Amer 34 L, Est GFR (MDRD) Non-Af 28 L, BUN/Creatinine Ratio 20.5 H, Glucose 180 H, Calcium 9.1, Procalcitonin 0.31 H 08/05/23 06:18: APTT 76.9 H Micro: Microbiology 08/04/23 00:00 Sputum, Expectorated/Coughed Gram Stain - Final 08/04/23 00:00 Sputum, Expectorated/Coughed Respiratory Culture - Preliminary Appears to be normal respiratory ramu. Further studies to follow. ABG Data ABG results: ABG 08/04/23 21:25 Specimen Type ART Sample Site R Radial pH 7.36 Bicarbonate Actual 25.3 Total CO2 27 Base Excess 0 O2 Saturation 95 O2 % 100.0 ABG pCO2 45.0 ABG pO2 80 Abhijit Test Positive O2 Delivery Device NRB Vent Mode Not entered Imaging Radiology Impression Echocardiogram 08/03/23 17:36 Interpretation Summary The estimated ejection fraction is 55 %. Unable to assess diastolic dysfunction. Moderately dilated right ventricle. Trivial mitral valve insufficiency. Ordering Physician: Arnaud Garcia Referring Physician: NUNO SALAZAR Performed By: Armida Stien and Student Chest X-Ray 08/04/23 21:00 IMPRESSION: Increasing bilateral airspace disease which may represent worsening pneumonia. Electronically Signed: Aayush Monteiro MD at 22:14 EDT ,
[2023-08-05 13:26] LABS: Partial Thromboplast Time 51.4 Seconds (24.1-36.2)
--- NOTE | 2023-08-05 15:52 | PN.HOSP_ITS ---
Reason for Visit Reason for Visit: Diagnoses Non-ST elevation (NSTEMI) myocardial infarction (08/03/23) Pneumonia, unspecified organism (08/03/23) Acute kidney failure, unspecified (08/03/23) Chronic kidney disease, stage 3b (08/03/23) Subjective Subjective Patient was seen and examined today, he was transferred to the ICU last night due to increasing respiratory embarrassment. Patient is currently on BiPAP, I had pulmonary medicine see the patient today and they ordered an ultrasound of the lower extremities which showed a DVT-according to nursing this was in the left leg. Patient was placed on a Lasix drip today, he was seen by nephrology who sees the patient chronically. I also talked with cardiology today and discussed the case with them. Objective Data Objective Data Vital Signs: Vital Signs Temp Pulse Resp BP Pulse Ox O2 Del Method O2 Flow Rate 97.9 F 113 H 30 H 131/90 H 91 Bi-pap 75 08/05/23 12:00 08/05/23 15:09 08/05/23 15:09 08/05/23 14:00 08/05/23 15:09 08/05/23 14:00 08/05/23 06:00 FiO2 90 08/05/23 15:09 Oxygen Flow Rate (L/min) 75 Oxygen Delivery Method Bi-pap Weight: 87.8 kg Body Mass Index (BMI) 31.1 Intake & Output: Intake and Output for Last 24 Hours 08/03/23 08/04/23 08/05/23 23:59 23:59 23:59 Intake Total 489.5 / 489.5 548.48 / 548.48 497.10 / 497.10 Output Total 150 / 150 200 / 200 425 / 425 Balance 339.5 / 339.5 348.48 / 348.48 72.10 / 72.10 Lab / Micro Data 08/04/23 04:30 08/05/23 03:04 Labs: Laboratory Results - last 24 hr 08/04/23 17:10: APTT 43.8 H 08/04/23 23:50: APTT 53.1 H 08/05/23 03:04: Sodium 135 L, Potassium 3.4 L, Chloride 97 L, Carbon Dioxide 27.0, Anion Gap 11, BUN 50 H, Creatinine 2.44 H, Estim Creat Clear Calc 28.72, Est GFR (MDRD) Af Amer 34 L, Est GFR (MDRD) Non-Af 28 L, BUN/Creatinine Ratio 20.5 H, Glucose 180 H, Calcium 9.1, Procalcitonin 0.31 H 08/05/23 06:18: APTT 76.9 H 08/05/23 12:30: APTT 51.4 H Micro: Microbiology 08/04/23 00:00 Sputum, Expectorated/Coughed Gram Stain - Final 08/04/23 00:00 Sputum, Expectorated/Coughed Respiratory Culture - Preliminary Appears to be normal respiratory ramu. Further studies to follow. 08/03/23 21:57 Urine, Random Legionella Antigen - Final 08/03/23 21:57 Urine, Random Streptococcus pneumoniae Antigen (M - Final 08/03/23 18:30 Mucosa - Nose SARS-CoV-2, Influenza & RSV (PCR) - Final ABG Data ABG results: ABG 08/04/23 21:25 Specimen Type ART Sample Site R Radial pH 7.36 Bicarbonate Actual 25.3 Total CO2 27 Base Excess 0 O2 Saturation 95 O2 % 100.0 ABG pCO2 45.0 ABG pO2 80 Abhijit Test Positive O2 Delivery Device NRB Vent Mode Not entered Radiography Diagnostic Testing: Radiology Impression Chest X-Ray 08/04/23 21:00 IMPRESSION: Increasing bilateral airspace disease which may represent worsening pneumonia. Electronically Signed: Aayush Monteiro MD at 22:14 EDT , Physical Exam Const alert and oriented x3 Constitutional Narrative: Patient is currently on high flow oxygen during my examination, his respirations appear rapid and somewhat shallow General Appearance: cooperative, well kempt and well developed Orientation / Consciousness: awake, oriented to person, oriented to place and oriented to time HEENT normocephalic, head/scalp atraumatic and moist oral mucous membranes Eyes PERRL, EOMs intact bilaterally and conjunctivae normal Neck supple, no JVD, thyroid normal and no carotid bruits General: trachea midline Resp Resp Narrative: Inspiratory rales are noted over the patient's lungs bilaterally Auscultation: Negative for rales, rhonchi or wheezes Cardio regular rate, regular rhythm, S1 normal heart sound, S2 normal heart sound, no murmurs, no rub and no gallops GI normal to inspection, nondistended, normoactive bowel sounds, soft to palpation, non-tender and non-distended Skin no rashes or lesions noted General Skin Exam: no breakdown Neuro oriented x3, CN's II-XII intact bilaterally, moves all extremities, no focal motor deficits and no sensory deficits noted Sensorium / Orientation: awake and alert Speech: speech normal Psych affect normal Assessment & Plan Assessment/Plan (1) Non-STEMI (non-ST elevated myocardial infarction): PLAN: Plan 1. [id number] for cardiac catheterization will have to be delayed until the patient's renal function improves, he has no chest pain at this time, patient's EF is normal #2 acute diastolic congestive heart failure-patient is on a Lasix drip presently, nephrology is seeing him in consultation #3 Acute hypoxic respiratory failure secondary to #2-pulmonary medicine is seeing the patient this time, pulse ox will be monitored, oxygen will be adjusted accordingly #4 chronic kidney disease stage IIIb-complicates care, management, recovery, and prognosis, nephrology is seeing him in consultation #5 hypokalemia-patient was given IV potassium today, he will be given oral potassium supplementation as needed #6 deep venous thrombosis left leg-patient remains on heparin drip at this time I do not feel the patient has community-acquired pneumonia Total clinical time spent by myself addressing the patient's medical issues, reviewing all of his data, and collaborating with patient's care team: 50 minute s Charges/Coding Visit Charges Inpatient E&M: 07172 [facility] L3
[2023-08-05 20:02] LABS: Partial Thromboplast Time 55.7 Seconds (24.1-36.2)
[2023-08-06] VITALS (33 sets, daily range): BP systolic 113–136; BP diastolic 50–93; PULSE 100–136; RESP 12–40; TEMP 36.6–37.1; O2SAT 88–97; BMI 31.1; BMI 30.4
[2023-08-06] MEDS: HEPARIN/D5w 25,000 UNITS 25,000 UNITS/250 ML IV.SOLN. 16 UNITS CONT INF ×2 (00:08→13:31)
[2023-08-06 03:01] LABS: Partial Thromboplast Time 57.2 Seconds (24.1-36.2)
--- NOTE | 2023-08-06 06:59 | PN.HOSP_ITS ---
Reason for Visit Reason for Visit: Diagnoses Non-ST elevation (NSTEMI) myocardial infarction (08/03/23) Pneumonia, unspecified organism (08/03/23) Acute kidney failure, unspecified (08/03/23) Chronic kidney disease, stage 3b (08/03/23) Subjective Subjective Transitioned to Airvo. Feels he is tiring out his diaphragm. Objective Data Objective Data Vital Signs: Vital Signs Temp Pulse Resp BP Pulse Ox O2 Del Method O2 Flow Rate 36.6 C 108 H 22 H 113/63 94 Bi-pap 75 08/06/23 06:00 08/06/23 06:00 08/06/23 06:00 08/06/23 06:00 08/06/23 06:00 08/06/23 06:00 08/05/23 06:00 FiO2 55 08/06/23 06:00 Oxygen Flow Rate (L/min) 75 Oxygen Delivery Method Bi-pap Weight: 85.9 kg Body Mass Index (BMI) 30.4 Intake & Output: Intake and Output for Last 24 Hours 08/04/23 08/05/23 08/06/23 23:59 23:59 23:59 Intake Total 548.48 / 548.48 828.83 / 828.83 49.33 / 49.33 Output Total 200 / 200 875 / 1800 1550 / 1550 Balance 348.48 / 348.48 -46.17 / -971.17 -1500.67 / -1500.67 Lab / Micro Data 08/06/23 07:45 08/06/23 07:45 Labs: Laboratory Results - last 24 hr 08/05/23 03:04: Procalcitonin 0.31 H 08/05/23 12:30: APTT 51.4 H 08/05/23 19:41: APTT 55.7 H 08/06/23 02:30: APTT 57.2 H Micro: Microbiology 08/04/23 00:00 Sputum, Expectorated/Coughed Gram Stain - Final 08/04/23 00:00 Sputum, Expectorated/Coughed Respiratory Culture - Preliminary Appears to be normal respiratory ramu. Further studies to follow. 08/03/23 21:57 Urine, Random Legionella Antigen - Final 08/03/23 21:57 Urine, Random Streptococcus pneumoniae Antigen (M - Final 08/03/23 18:30 Mucosa - Nose SARS-CoV-2, Influenza & RSV (PCR) - Final Radiography Diagnostic Testing: Radiology Impression Venous Doppler Study 08/05/23 09:36 Interpretation Summary Acute deep vein thrombosis is noted in the right peroneal vein. The remainder of the right lower extremity deep venous system is patent and compressible. Deep veins of the left lower extremity are patent and compressible segmentally. There is no evidence of left lower extremity deep vein thrombosis. Valvular competence appears intact within the proximal deep venous systems bilaterally. Great saphenous veins are patent and compressible bilaterally, but demonstrate chronic vein wall thickening. Pulsatile flow is noted in the deep venous system bilaterally, which may be indicative of elevated central venous pressure (i.e. congestive heart failure, pulmonary hypertension, etc.). Clinical correlation is advised. Ordering Physician: Jovanny Munoz Referring Physician: David Baptiste Performed By: Prem Rosales RVT Physical Exam Const Constitutional Narrative: on Airvo. Tachypneic. Alert. Resp Resp Narrative: coarse BS bilaterally. Cardio regular rate, regular rhythm, S1 normal heart sound and S2 normal heart sound GI normal to inspection, nondistended, normoactive bowel sounds, soft to palpation, non-tender and non-distended Extremity normal to inspection and no clubbing, cyanosis or edema Neuro Sensorium / Orientation: awake and alert Assessment & Plan Assessment/Plan (1) Non-STEMI (non-ST elevated myocardial infarction): PLAN: Plan Non-STEMI * Troponins of 13,391 * Patient received aspirin emergency room and will continue on the floor. Patient was started on heparin drip in the emergency room and will continue on floor. * cardiology following. Tentative plan for [facility] when condition allows. Acute hypoxic respiratory failure * 2/2 CHF exacerbation, pneumonia. Cannot rule out ALI/ARDS. * placed on BiPAP * cannot rule out PE. * pulmonary following * VQ ordered. Pneumonia * restarted back on abx with CTX and azithromycin given ongoing respiratory failure, leukocytosis * infectious work up so far negative. Acute HFpEF * EF 55% on echo from 08/03 * not a candidate for ACEi/ARB given CKD * furosemide gtt Right LE DVT * acute DVT in Right peroneal vein. * anticoagulated w heparin gtt Chronic kidney disease stage IIIb * Patient sees Dr. Terry as outpatient. 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 * Monitor closely particularly if the Patient needs a cardiac catheterization. * No need for renal replacement therapy at this time. * nephrology following. Hypertension * Continue with amlodipine. Hold off on chlorthalidone for now VTE prophylaxis: Not indicated as patient is already anticoagulated CODE STATUS: Addressed with the patient. Patient wished to be full code. Charges/Coding Visit Charges Inpatient E&M: 54036 [facility] L3
[2023-08-06] MEDS: guaiFENesin 600 MG Tablet PO ×2 (07:54→20:45)
[2023-08-06] MEDS: Aspirin E.C. 81 MG Tablet PO (07:54)
[2023-08-06] MEDS: Potassium Chloride Oral Tablet 20 MEQ 40 MEQ PO ×2 (07:54→17:30)
[2023-08-06] MEDS: amLODIPine 5 MG Tablet PO (07:54)
[2023-08-06 08:02] LABS: Absolute Lymphocyte Count 1.48 X10^3/uL (0.83-4.51); Absolute Neutrophil Count 11.3 X10^3/uL (2.0-7.7); Basophil# 0.03 X10^3/uL; Basophil% 0.2 % (0-1); Hematocrit 36.9 % (40-54); Hemoglobin 11.4 g/dL (13.0-16.5); Lymphocyte # 1.48 X10^3/ul (0.83-4.51); Lymphocyte % 10.2 % (19-41); Mean Corp Hgb Conc 30.9 g/dL (32-36); Mean Corpuscular Hgb 25.4 pg (27.0-32.0); Mean Corpuscular Volume 82.2 fL (80-94); Monocyte# 1.55 X10^3/uL; Monocyte% 10.7 % (0-10); NRBC Flagged by Analyzer 0 % (0-5); Neutrophil % 78.3 % (47-70); POSITIVE DIFFERENTIAL YES; Platelet Count 493 K/mm3 (150-450); RBC Distribution Width CV 15.5 % (11.6-14.6); RBC Distribution Width SD 46.4 fl (35.1-43.9); Red Blood Count 4.49 M/mm3 (4.6-6.2); White Blood Count 14.4 K/mm3 (4.4-11.0)
[2023-08-06 08:05] LABS: Differential Indicated SCAN CRITERIA MET
[2023-08-06 08:11] LABS: ALB/GLOB Ratio 0.6 RATIO (0.9-2.4); AST(SGOT) 21 U/L (15-37); Alanine Aminotransfer ALT/SGPT 20 U/L (16-61); Albumin, Serum 2.6 g/dL (3.2-5.0); Alkaline Phosphatase 65 U/L (45-117); Anion Gap 9 (5-15); BUN 67 mg/dL (7-18); Calcium,Total 9.2 mg/dL (8.5-10.1); Chloride 95 mmol/L (98-107); Creatinine, Serum 2.39 mg/dL (0.70-1.30); EST Glomerular Filtration Rate 29 mL/min (>60); Est Glom Filt Rate - Afr Amer 35 mL/min (>60); Estimated Creatinine Clearance 29.13 ml/min; Globulin 4.2 g/dL (2.2-4.2); Glucose 144 mg/dL (74-106); Protein, Total 6.8 g/dL (6.4-8.2); Sodium Level 138 mmol/L (136-145)
[2023-08-06] MEDS: Furosemide 500 MG in Empty Viaflex 50 mL 1 EACH CONT INF (08:30)
--- NOTE | 2023-08-06 10:27 | PCM.PN.TICU ---
Objective Data Objective Data Vital Signs: Vital Signs Last response Temperature 36.6 C 08/06/23 07:58 Temperature Source Temporal 08/06/23 07:58 Pulse Rate 100 08/06/23 08:30 Pulse Strength Normal (2+) 08/05/23 21:31 Respiratory Rate 40 H 08/06/23 08:30 Respiratory Effort Non-Labored 08/06/23 08:00 Respiratory Depth Shallow 08/06/23 08:00 Respiratory Pattern Tachypnea 08/06/23 08:00 Blood Pressure 136/88 H 08/06/23 07:58 Blood Pressure Mean 104 08/06/23 07:58 Blood Pressure Source Monitor 08/06/23 07:58 Blood Pressure Position Semi-Fowlers 08/06/23 07:58 Blood Pressure Location Right Arm 08/06/23 07:58 Pulse Ox 94 08/06/23 08:30 Oxygen Delivery Method Bi-pap 08/06/23 08:00 Oxygen Flow Rate (L/min) 10 08/06/23 07:50 Fraction of Inspired Oxygen (FIO2) 70 08/06/23 08:30 I&O: I&O Last 24 Hours 08/05/23 08/05/23 08/06/23 11:59 23:59 11:59 Intake Total 487.10 / 828.83 341.73 / 828.83 71.68 / 71.68 Output Total 275 / 1800 600 / 1800 1550 / 1550 Balance 212.10 / -971.17 -258.27 / -971.17 -1478.32 / -1478.32 I&O: Total Stay 08/03/23 13:43 thru 08/06/23 08:30 Intake Total 1938.49 Output Total 2775 Balance -836.51 Current Meds Ordered / Administered: Current meds ordered / Administered Generic Name Dose Route Start Last Admin Trade Name Freq PRN Reason Stop Dose Admin Acetaminophen 650 mg 08/03/23 17:36 Acetaminophen 325 Mg Tablet PO Q6H PRN PRN Pain 1-10 Or Fever >100.7 Albuterol Sulfate 2.5 mg 08/03/23 17:36 08/05/23 04:31 Albuterol 2.5 Mg/3 Ml Vial.Neb. INHALATION 2.5 mg Q2H PRN PRN Administration SHORTNESS OF BREATH Amlodipine Besylate 5 mg 08/04/23 10:00 08/06/23 07:54 Amlodipine 5 Mg Tablet PO 5 mg DAILY REY Administration Protocol Aspirin 81 mg 08/04/23 08:00 08/06/23 07:54 Aspirin E.C. 81 Mg Tablet PO 81 mg BREAKFAST REY Administration Guaifenesin 600 mg 08/03/23 22:00 08/06/23 07:54 Guaifenesin 600 Mg Tablet PO 600 mg BID REY Administration Heparin Sodium (Porcine) 0 unit 08/03/23 15:35 08/03/23 22:12 Heparin Injection (Vial) 5,000 Unit/Ml Vial IV 1,000 unit UD PRN Administration dose adjustment Protocol Heparin Sodium/Dextrose 25,000 units in 250 mls @ 10 mls/hr 08/03/23 15:30 08/06/23 03:13 CONT INF 1,600 units/hr .Q25H REY 16 mls/hr Titration Protocol As Directed Sodium Chloride 250 mls @ 15 mls/hr 08/04/23 23:09 IV .[id number] PRN Additional IVPB Infusion Sodium Chloride 250 mls @ 15 mls/hr 08/04/23 23:09 IV .[id number] PRN Saline Flush Furosemide 500 mg/ N/A 50 mls @ 1 mls/hr 08/05/23 10:00 08/06/23 08:30 CONT INF 10 mg/hr .Q50H REY 1 mls/hr Administration 10 MG/HR Lorazepam 0.5 mg 08/06/23 09:39 Lorazepam 2 Mg/Ml Syringe IV Q6H PRN PRN ANXIETY Lorazepam 0.5 mg 08/06/23 09:42 Lorazepam 0.5 Mg Tablet PO Q6H PRN PRN ANXIETY Morphine Sulfate 2 - 4 mg 08/03/23 17:36 08/05/23 11:44 Morphine 2 Mg/Ml Syringe IV 4 mg Q3H PRN PRN Administration Pain Score 6-10 Ondansetron HCl 4 mg 08/03/23 17:36 Ondansetron 4 Mg/2 Ml Vial IV Q8H PRN PRN NAUSEA/VOMITING Oxycodone HCl 5 mg 08/03/23 17:36 Oxycodone 5 Mg Tablet PO Q4H PRN PRN Pain Score 4-10 Potassium Chloride 40 meq 08/05/23 08:00 08/06/23 07:54 Potassium Chloride Oral Tablet 20 Meq PO 40 meq BIDCM REY Administration Sodium Chloride 10 - 40 ml 08/03/23 17:59 08/05/23 06:10 0.9% Saline Lock 10 Ml Syringe IV 10 ml UD PRN Administration SALINE FLUSH Lab / Micro Data 08/06/23 07:45 08/06/23 07:45 Labs: Laboratory Results - last 24 hr 08/05/23 03:04: Procalcitonin 0.31 H 08/05/23 12:30: APTT 51.4 H 08/05/23 19:41: APTT 55.7 H 08/06/23 02:30: APTT 57.2 H 08/06/23 07:45: WBC 14.4 H, RBC 4.49 L, Hgb 11.4 L, Hct 36.9 L, MCV 82.2, MCH 25.4 L, MCHC 30.9 L, RDW Std Deviation 46.4 H, RDW Coeff of Raghavendra 15.5 H, Plt Count 493 H, MPV 11.0, Immature Gran % (Auto) 0.600, Neut % (Auto) 78.3 H, Lymph % (Auto) 10.2 L, [place] % (Auto) 10.7 H, Eos % (Auto) 0.0, Baso % (Auto) 0.2, Absolute Neuts (auto) 11.3 H, Absolute Lymphs (auto) 1.48, Nucleated RBC % 0, Diff Path Review August, Sodium 138, Potassium 3.0 L, Chloride 95 L, Carbon Dioxide 34.0 H, Anion Gap 9, BUN 67 H, Creatinine 2.39 H, Estim Creat Clear Calc 29.13, Est GFR (MDRD) Af Amer 35 L, Est GFR (MDRD) Non-Af 29 L, BUN/Creatinine Ratio 28.0 H, Glucose 144 H, Calcium 9.2, Total Bilirubin 0.40, AST 21, ALT 20, Alkaline Phosphatase 65, Total Protein 6.8, Albumin 2.6 L, Globulin 4.2, Albumin/Globulin Ratio 0.6 L Micro: Microbiology 08/04/23 00:00 Sputum, Expectorated/Coughed Gram Stain - Final 08/04/23 00:00 Sputum, Expectorated/Coughed Respiratory Culture - Preliminary Appears to be normal respiratory ramu. Further studies to follow. Imaging Radiology Impression Venous Doppler Study 08/05/23 09:36 Interpretation Summary Acute deep vein thrombosis is noted in the right peroneal vein. The remainder of the right lower extremity deep venous system is patent and compressible. Deep veins of the left lower extremity are patent and compressible segmentally. There is no evidence of left lower extremity deep vein thrombosis. Valvular competence appears intact within the proximal deep venous systems bilaterally. Great saphenous veins are patent and compressible bilaterally, but demonstrate chronic vein wall thickening. Pulsatile flow is noted in the deep venous system bilaterally, which may be indicative of elevated central venous pressure (i.e. congestive heart failure, pulmonary hypertension, etc.). Clinical correlation is advised. Ordering Physician: Jovanny Munoz Referring Physician: David Baptiste Performed By: Prem Rosales RVT Assessment and Plan . Assessment and plan: Brief summary: 72-year-old male, with a history as outlined below, who presented to the emergency department on August 02 with progressive exertional dyspnea. The patient has no pre-existing lung conditions. He stated that he does not utilize supplemental oxygen at his baseline. He has never been diagnosed with obstructive sleep apnea. The patient denied a history of VTE. 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 On presentation to the emergency department, the patient was documented to be afebrile hemodynamically stable. He was initially documented to be saturating in the mid 90s on room air. Laboratory evaluation revealed a normal white blood cell count. Chemistry profile was notable for a sodium of 134, potassium of 2.7, chloride of 96 and creatinine of 2.02. Troponin was elevated at 13,391 with a BNP of 1259. Chest imaging demonstrated patchy bilateral infiltrates. Strep and urine Legionella antigens were negative. COVID, influenza and RSV PCR's were negative. Sputum culture was collected. The patient was subsequently admitted to the medical intensive care unit for further management. The patient was ultimately evaluated by cardiology over concerns for an NSTEMI. He was placed on a heparin infusion and echocardiogram was obtained. That study demonstrated normal LV size and function with an ejection fraction of 55%. Diastolic function was unable to be assessed. RVSP was unable to be estimated. This morning, the patient was initiated on a Lasix infusion. Sub: Pt seen and examined. On HHFNC 60L/85% at this time and overnight on NIV FiO2 55%. Excellent UOP. Lasix @ 10 mg/hr Hep gtt PE: General: Well developed, in no distress; + HHFNC HEENT: anicteric Sclera, nl nose; supple neck, no masses Cardiovascular: S1/S2; No rubs, gallops; no displaced PM Respiratory: diminished; no crackles, wheezes, or rhonchi Abdominal: Non-tender; Non distended; hypoBS x 4; No Hepatosplenomegaly Extremities: Warm, well perfused; No clubbing, cyanosis; capillary refill < 2 sec Skin: intact, no rashes Neurological: no gross deficits appreciated A/P: #Acute hypoxemic respiratory failure: cont alternating NIV PRN; titrate Fio2 to keep sats ~90-92%: encourage mobilization/IS use; will get F/U CXR today & VQ scan as well #NSTEMI: on hep gtt; cont per cardiology #HFpEF, acute exacerbation: cont diuresis with Lasix gtt #TRENA on CKD: nephrology on board and managing; cont strict I/Os; monitor lytes & replace K as needed #DVT: LE US positive for acute thrombos in Rt peroneal vein; cont hep gtt #?PNA: worsening leukocytosis but afebrile at this time; F/U AM CXR; will start emp Abx- CTX/azithro; F/U Cx CCT: 50 min The entirety of the encounter was completed via telemedicine. Subjective Subjective Brief summary: 72-year-old male, with a history as outlined below, who presented to the emergency department on August 02 with progressive exertional dyspnea. The patient has no pre-existing lung conditions. He stated that he does not utilize supplemental oxygen at his baseline. He has never been diagnosed with obstructive sleep apnea. The patient denied a history of VTE. 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 On presentation to the emergency department, the patient was documented to be afebrile hemodynamically stable. He was initially documented to be saturating in the mid 90s on room air. Laboratory evaluation revealed a normal white blood cell count. Chemistry profile was notable for a sodium of 134, potassium of 2.7, chloride of 96 and creatinine of 2.02. Troponin was elevated at 13,391 with a BNP of 1259. Chest imaging demonstrated patchy bilateral infiltrates. Strep and urine Legionella antigens were negative. COVID, influenza and RSV PCR's were negative. Sputum culture was collected. The patient was subsequently admitted to the medical intensive care unit for further management. The patient was ultimately evaluated by cardiology over concerns for an NSTEMI. He was placed on a heparin infusion and echocardiogram was obtained. That study demonstrated normal LV size and function with an ejection fraction of 55%. Diastolic function was unable to be assessed. RVSP was unable to be estimated. This morning, the patient was initiated on a Lasix infusion. Sub: Pt seen and examined. On HHFNC 60L/85% at this time and overnight on NIV FiO2 55%. Excellent UOP. Lasix @ 10 mg/hr Hep gtt PE: General: Well developed, in no distress HEENT: anicteric Sclera, nl nose; supple neck, no masses Cardiovascular: S1/S2; No rubs, gallops; no displaced PM Respiratory: diminished; no crackles, wheezes, or rhonchi Abdominal: Non-tender; Non distended; hypoBS x 4; No Hepatosplenomegaly Extremities: Warm, well perfused; No clubbing, cyanosis; capillary refill < 2 sec Skin: intact, no rashes Neurological: no gross deficits appreciated A/P: #Acute hypoxemic respiratory failure: cont alternating NIV PRN; titrate Fio2 to keep sats ~90-92%: encourage mobilization/IS use to minimize atelectasis; will get F/U CXR today #NSTEMI: on hep gtt; cont per cardiology #HFpEF, acute exacerbation: cont diuresis with Lasix gtt #TRENA on CKD: nephrology on board and managing; cont strict I/Os; monitor lytes & replace K as needed #DVT: LE US positive for acute thrombos in Rt peroneal vein; cont hep gtt #?PNA: worsening leukocytosis but afebrile at this time; F/U AM CXR; will consider emp Abx CCT: 50 min The entirety of the encounter was completed via telemedicine.
--- NOTE | 2023-08-06 10:45 | RAD_ITS ---
EXAM: XR CHEST, 1 VIEW CLINICAL INDICATION: respiratory failure TECHNIQUE: Frontal view of the chest. COMPARISON: XR Chest dated 08/04/2023 FINDINGS: LUNGS AND PLEURAL SPACES: No significant change in the bilateral linear opacities. Persistent small bilateral pleural effusions. HEART: Normal heart size. MEDIASTINUM: No mediastinal or hilar mass. BONES/JOINTS: No acute abnormality. RAD/Chest 1 View (Portable) IMPRESSION: Stable bilateral pneumonia. Electronically Signed: Ilir Silva MD at 11:04 EDT ,
[2023-08-06] MEDS: LORazepam 0.5 MG Tablet PO ×2 (11:01→20:47)
[2023-08-06] MEDS: Ceftriaxone 2 GM in 0.9% Normal Saline (50mL MB+) 50 ML IV (13:16)
[2023-08-06] MEDS: Azithromycin 500 MG in Dextrose 5%-Water (250mL Bag) 250 ML 250 MG IV (14:32)
--- NOTE | 2023-08-06 14:48 | PN.CARD_ITS ---
Subjective Subjective Patient's shortness of breath has improved. Creatinine appears to be stable. Objective Data Vital Signs: Vital Signs Temp Pulse Resp BP Pulse Ox O2 Del Method O2 Flow Rate 97.8 F 106 H 36 H 136/88 H 90 Bi-pap 10 08/06/23 07:58 08/06/23 11:10 08/06/23 11:10 08/06/23 07:58 08/06/23 11:10 08/06/23 08:00 08/06/23 07:50 FiO2 85 08/06/23 11:10 Oxygen Flow Rate (L/min) 10 Oxygen Delivery Method Bi-pap Weight: 189 lb 6.033 oz Body Mass Index (BMI) 30.4 Intake & Output: Intake and Output for Last 24 Hours 08/04/23 08/05/23 08/06/23 23:59 23:59 23:59 Intake Total 548.48 / 548.48 828.83 / 828.83 286.48 / 286.48 Output Total 200 / 200 875 / 1800 1550 / 1550 Balance 348.48 / 348.48 -46.17 / -971.17 -1263.52 / -1263.52 Lab / Micro Data 08/06/23 07:45 08/06/23 07:45 Labs: Laboratory Results - last 24 hr 08/05/23 19:41: APTT 55.7 H 08/06/23 02:30: APTT 57.2 H 08/06/23 07:45: WBC 14.4 H, RBC 4.49 L, Hgb 11.4 L, Hct 36.9 L, MCV 82.2, MCH 25.4 L, MCHC 30.9 L, RDW Std Deviation 46.4 H, RDW Coeff of Raghavendra 15.5 H, Plt Count 493 H, MPV 11.0, Immature Gran % (Auto) 0.600, Neut % (Auto) 78.3 H, Lymph % (Auto) 10.2 L, [place] % (Auto) 10.7 H, Eos % (Auto) 0.0, Baso % (Auto) 0.2, Absolute Neuts (auto) 11.3 H, Absolute Lymphs (auto) 1.48, Nucleated RBC % 0, Diff Path Review August, Sodium 138, Potassium 3.0 L, Chloride 95 L, Carbon Dioxide 34.0 H, Anion Gap 9, BUN 67 H, Creatinine 2.39 H, Estim Creat Clear Calc 29.13, Est GFR (MDRD) Af Amer 35 L, Est GFR (MDRD) Non-Af 29 L, BUN/Creatinine Ratio 28.0 H, Glucose 144 H, Calcium 9.2, Total Bilirubin 0.40, AST 21, ALT 20, Alkaline Phosphatase 65, Total Protein 6.8, Albumin 2.6 L, Globulin 4.2, Albumin/Globulin Ratio 0.6 L Micro: Microbiology 08/04/23 00:00 Sputum, Expectorated/Coughed Gram Stain - Final 08/04/23 00:00 Sputum, Expectorated/Coughed Respiratory Culture - Final Cardiology Labs/Tests 08/05/23 19:41: APTT 55.7 H 08/06/23 02:30: APTT 57.2 H 08/06/23 07:45: WBC 14.4 H, RBC 4.49 L, Hgb 11.4 L, Hct 36.9 L, MCV 82.2, MCH 25.4 L, MCHC 30.9 L, Plt Count 493 H, MPV 11.0, Immature Gran % (Auto) 0.600, Neut % (Auto) 78.3 H, Lymph % (Auto) 10.2 L, [place] % (Auto) 10.7 H, Eos % (Auto) 0.0, Baso % (Auto) 0.2, Absolute Neuts (auto) 11.3 H, Nucleated RBC % 0, Sodium 138, Potassium 3.0 L, Chloride 95 L, Carbon Dioxide 34.0 H, Anion Gap 9, BUN 67 H, Creatinine 2.39 H, Est GFR (MDRD) Af Amer 35 L, Est GFR (MDRD) Non-Af 29 L, BUN/Creatinine Ratio 28.0 H, Glucose 144 H, Calcium 9.2, Total Bilirubin 0.40 Rhythm: EKG: ECHO: Stress Test: Cardiac Cath: PCI: CT Surgery: Holter monitor: EPS: PPM: CXR: Chest CT Scan: Radiography Diagnostic Testing: Radiology Impression Venous Doppler Study 08/05/23 09:36 Interpretation Summary Acute deep vein thrombosis is noted in the right peroneal vein. The remainder of the right lower extremity deep venous system is patent and compressible. Deep veins of the left lower extremity are patent and compressible segmentally. There is no evidence of left lower extremity deep vein thrombosis. Valvular competence appears intact within the proximal deep venous systems bilaterally. Great saphenous veins are patent and compressible bilaterally, but demonstrate chronic vein wall thickening. Pulsatile flow is noted in the deep venous system bilaterally, which may be indicative of elevated central venous pressure (i.e. congestive heart failure, pulmonary hypertension, etc.). Clinical correlation is advised. Ordering Physician: Jovanny Munoz Referring Physician: David Baptiste Performed By: Prem Rosales, T Chest X-Ray 08/06/23 10:45 IMPRESSION: Stable bilateral pneumonia. Electronically Signed: Ilir Silva MD at 11:04 EDT , Physical Exam Const alert and oriented x3 HEENT normocephalic Eyes no scleral icterus Resp Resp Narrative: Bilateral crackles appear to be improved Cardio regular rate Assessment & Plan Assessment/Plan (1) Non-STEMI (non-ST elevated myocardial infarction): PLAN: Continue IV heparin and IV Lasix. Replace potassium. If creatinine is stable and okay with nephrology, possible cath on Tuesday. Charges/Coding Visit Charges Inpatient E&M: 14305 Subs Hosp L2
[2023-08-07] VITALS (29 sets, daily range): BP systolic 102–135; BP diastolic 67–88; PULSE 96–119; RESP 12–36; TEMP 36.6–37.4; O2SAT 80–100; BMI 29.7
[2023-08-07] MEDS: 0.9% Saline Lock 10 ML Syringe IV (03:28)
[2023-08-07] MEDS: HEPARIN/D5w 25,000 UNITS 25,000 UNITS/250 ML IV.SOLN. 16 UNITS CONT INF ×2 (03:28→18:17)
[2023-08-07 03:58] LABS: Absolute Lymphocyte Count 1.14 X10^3/uL (0.83-4.51); Absolute Neutrophil Count 9.2 X10^3/uL (2.0-7.7); Basophil# 0.03 X10^3/uL; Basophil% 0.3 % (0-1); Eosinophil# 0.01 X10^3/uL; Eosinophils% 0.1 % (0-5); Hematocrit 33.8 % (40-54); Hemoglobin 10.2 g/dL (13.0-16.5); Lymphocyte # 1.14 X10^3/ul (0.83-4.51); Lymphocyte % 9.9 % (19-41); Mean Corp Hgb Conc 30.2 g/dL (32-36); Mean Corpuscular Hgb 25.1 pg (27.0-32.0); Mean Platelet Vol. 11.5 fl (6.2-12.0); Monocyte# 1.16 X10^3/uL; NRBC Flagged by Analyzer 0 % (0-5); Neutrophil # 9.18 X10^3/uL (2.7-7.7); Neutrophil % 79.3 % (47-70); Platelet Count 432 K/mm3 (150-450); RBC Distribution Width CV 15.6 % (11.6-14.6); Red Blood Count 4.07 M/mm3 (4.6-6.2); White Blood Count 11.6 K/mm3 (4.4-11.0)
[2023-08-07 04:08] LABS: ALB/GLOB Ratio 0.6 RATIO (0.9-2.4); AST(SGOT) 17 U/L (15-37); Alanine Aminotransfer ALT/SGPT 20 U/L (16-61); Albumin, Serum 2.5 g/dL (3.2-5.0); Alkaline Phosphatase 63 U/L (45-117); Anion Gap 9 (5-15); BUN 74 mg/dL (7-18); BUN/Creat Ratio 32.5 RATIO (10-20); Calcium,Total 9.2 mg/dL (8.5-10.1); Chloride 91 mmol/L (98-107); Creatinine, Serum 2.28 mg/dL (0.70-1.30); EST Glomerular Filtration Rate 30 mL/min (>60); Est Glom Filt Rate - Afr Amer 37 mL/min (>60); Estimated Creatinine Clearance 30.53 ml/min; Globulin 4.1 g/dL (2.2-4.2); Glucose 162 mg/dL (74-106); Potassium 2.7 mmol/L (3.5-5.1); Protein, Total 6.6 g/dL (6.4-8.2); Sodium Level 137 mmol/L (136-145)
[2023-08-07] MEDS: Potassium Chloride Oral Tablet 20 MEQ 40 MEQ PO ×2 (07:48→16:06)
[2023-08-07] MEDS: amLODIPine 5 MG Tablet PO (07:48)
[2023-08-07] MEDS: Aspirin E.C. 81 MG Tablet PO (07:48)
[2023-08-07] MEDS: guaiFENesin 600 MG Tablet PO ×2 (07:48→21:04)
[2023-08-07] MEDS: Ceftriaxone 2 GM in 0.9% Normal Saline (50mL MB+) 50 ML IV (08:00)
--- NOTE | 2023-08-07 08:04 | PN.HOSP_ITS ---
Reason for Visit Reason for Visit: Diagnoses Non-ST elevation (NSTEMI) myocardial infarction (08/03/23) Pneumonia, unspecified organism (08/03/23) Acute kidney failure, unspecified (08/03/23) Chronic kidney disease, stage 3b (08/03/23) Subjective Subjective Breathing better. Tolerating Airvo. Concerned about having a heart catheterizatoin because he feels his chances are 50/50. Had been coughing up copious phlegm and blood on Tuesday. Had not had any further hemoptysis until today x1. Objective Data Objective Data Vital Signs: Vital Signs Temp Pulse Resp BP Pulse Ox O2 Del Method O2 Flow Rate 37.1 C 98 28 H 120/85 H 96 Bi-pap 60 08/07/23 04:00 08/07/23 07:00 08/07/23 07:00 08/07/23 07:00 08/07/23 07:00 08/07/23 07:00 08/06/23 22:00 FiO2 55 08/07/23 07:00 Oxygen Flow Rate (L/min) 60 Oxygen Delivery Method Bi-pap Weight: 84 kg Body Mass Index (BMI) 29.7 Intake & Output: Intake and Output for Last 24 Hours 08/05/23 08/06/23 08/07/23 23:59 23:59 23:59 Intake Total 828.83 / 828.83 1241.48 / 1241.48 223.2 / 223.2 Output Total 875 / 1800 2650 / 3050 1300 / 1300 Balance -46.17 / -971.17 -1408.52 / -1808.52 -1076.8 / -1076.8 Lab / Micro Data 08/07/23 03:30 08/07/23 03:30 Labs: Laboratory Results - last 24 hr 08/06/23 07:45: WBC 14.4 H, RBC 4.49 L, Hgb 11.4 L, Hct 36.9 L, MCV 82.2, MCH 25.4 L, MCHC 30.9 L, RDW Std Deviation 46.4 H, RDW Coeff of Raghavendra 15.5 H, Plt Count 493 H, MPV 11.0, Immature Gran % (Auto) 0.600, Neut % (Auto) 78.3 H, Lymph % (Auto) 10.2 L, [place] % (Auto) 10.7 H, Eos % (Auto) 0.0, Baso % (Auto) 0.2, Absolute Neuts (auto) 11.3 H, Absolute Lymphs (auto) 1.48, Nucleated RBC % 0, Diff Path Review May foll, Sodium 138, Potassium 3.0 L, Chloride 95 L, Carbon Dioxide 34.0 H, Anion Gap 9, BUN 67 H, Creatinine 2.39 H, Estim Creat Clear Calc 29.13, Est GFR (MDRD) Af Amer 35 L, Est GFR (MDRD) Non-Af 29 L, BUN/Creatinine Ratio 28.0 H, Glucose 144 H, Calcium 9.2, Total Bilirubin 0.40, AST 21, ALT 20, Alkaline Phosphatase 65, Total Protein 6.8, Albumin 2.6 L, Globulin 4.2, Albumin/Globulin Ratio 0.6 L 08/07/23 03:30: WBC 11.6 H, RBC 4.07 L, Hgb 10.2 L, Hct 33.8 L, MCV 83.0, MCH 25.1 L, MCHC 30.2 L, RDW Std Deviation 47.0 H, RDW Coeff of Raghavendra 15.6 H, Plt Count 432, MPV 11.5, Immature Gran % (Auto) 0.400, Neut % (Auto) 79.3 H, Lymph % (Auto) 9.9 L, [place] % (Auto) 10.0, Eos % (Auto) 0.1, Baso % (Auto) 0.3, Absolute Neuts (auto) 9.2 H, Absolute Lymphs (auto) 1.14, Nucleated RBC % 0, APTT 64.0 H, Sodium 137, Potassium 2.7 L*, Chloride 91 L, Carbon Dioxide 37.0 H, Anion Gap 9, BUN 74 H, Creatinine 2.28 H, Estim Creat Clear Calc 30.53, Est GFR (MDRD) Af Amer 37 L, Est GFR (MDRD) Non-Af 30 L, BUN/Creatinine Ratio 32.5 H, Glucose 162 H, Calcium 9.2, Total Bilirubin 0.40, AST 17, ALT 20, Alkaline Phosphatase 63, Total Protein 6.6, Albumin 2.5 L, Globulin 4.1, Albumin/Globulin Ratio 0.6 L Micro: Microbiology 08/04/23 00:00 Sputum, Expectorated/Coughed Gram Stain - Final 08/04/23 00:00 Sputum, Expectorated/Coughed Respiratory Culture - Final 08/03/23 21:57 Urine, Random Legionella Antigen - Final 08/03/23 21:57 Urine, Random Streptococcus pneumoniae Antigen (M - Final 08/03/23 18:30 Mucosa - Nose SARS-CoV-2, Influenza & RSV (PCR) - Final Radiography Diagnostic Testing: Radiology Impression Chest X-Ray 08/06/23 10:45 IMPRESSION: Stable bilateral pneumonia. Electronically Signed: Ilir Silva MD at 11:04 EDT , Physical Exam Const alert and no apparent distress Constitutional Narrative: Anxious. Talking fast and prolonged and witnessed his sats dropping to 88% while on Airvo. Coughed up time glob of bloody phlegm. HEENT head/scalp atraumatic and moist oral mucous membranes Resp normal respiratory effort Resp Narrative: bibasilar crackles. Cardio regular rate, regular rhythm, S1 normal heart sound and S2 normal heart sound GI normal to inspection, nondistended, normoactive bowel sounds, soft to palpation, non-tender and non-distended Extremity normal to inspection Neuro no focal motor deficits Sensorium / Orientation: awake and alert Psych affect normal Assessment & Plan Assessment/Plan (1) Non-STEMI (non-ST elevated myocardial infarction): PLAN: Plan Non-STEMI * Troponins of 13,391 * Patient received aspirin emergency room and will continue on the floor. Patient was started on heparin drip in the emergency room and will continue on floor. * cardiology following. Tentative plan for [facility] when condition allows. Acute hypoxic respiratory failure * 2/2 CHF exacerbation, pneumonia. Cannot rule out ALI/ARDS, DAH. * placed on BiPAP * cannot rule out PE. * pulmonary following * VQ ordered. yvonne Pearson Dr. for contrast from nephrology persective. If VQ inconclusive, may consider CTA. Pneumonia * restarted back on abx with CTX and azithromycin given ongoing respiratory failure, leukocytosis * infectious work up so far negative. Acute HFpEF * EF 55% on echo from 08/03 * not a candidate for ACEi/ARB given CKD * furosemide gtt Right LE DVT * acute DVT in Right peroneal vein. * anticoagulated w heparin gtt Hypokalemia * 2/2 diuresis, despite 40 BID * will give 40 IV x1 today. Check magnesium level. Hemoptysis * Worse on Tuesday, improved overall * If recurrs, may need to DC heparin gtt. 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 * Monitor closely * No need for renal replacement therapy at this time. * nephrology following. Hypertension * Continue with amlodipine. Hold off on chlorthalidone for now Anxiety * exacerbated by underlying illesses, but pt endorses a baseline anxiety. * Reassurance provided about procedure, including heart cath. I told him I do not feel his chances are 50/50, but significantly better. However, acknowledging he is higher risk given his circumstances. VTE prophylaxis: Not indicated as patient is already anticoagulated CODE STATUS: Addressed with the patient. Patient wished to be full code. Greater than 55 minutes of which greater than 50% time was spent at bedside discussing with the patient about his overall improvement, the workup, reassurance the procedures, indication for procedures. Charges/Coding Visit Charges Inpatient E&M: 38458 Subs Hosp L3
[2023-08-07] MEDS: Potassium Chloride 10mEq/100mL 10 MEQ/100 ML IV.SOLN. 100 MEQ IV BOLUS ×4 (08:55→12:20)
[2023-08-07] MEDS: Azithromycin 500 MG in Dextrose 5%-Water (250mL Bag) 250 ML 250 MG IV (08:55)
[2023-08-07] MEDS: 0.9% Normal Saline (250mL Bag) 250 ML 15 ML IV (08:58)
[2023-08-07 08:59] LABS: Magnesium 2.7 mg/dL (1.6-2.6)
--- NOTE | 2023-08-07 10:21 | PN.RENAL_ITS ---
Subjective Subjective Follow-up on acute kidney injury on CKD. His baseline creatinine is around 1.9- 2. Came over with non-STEMI. Currently is being placed on a blood thinner, no cardiac catheterization is being planned. Breathing has improved,, shortness of breath is less Objective Data Objective Data Vital Signs: Vital Signs Temp Pulse Resp BP Pulse Ox O2 Del Method O2 Flow Rate 97.8 F 115 H 26 H 111/68 93 Airvo 60 08/07/23 08:00 08/07/23 10:00 08/07/23 10:00 08/07/23 10:00 08/07/23 10:00 08/07/23 10:00 08/07/23 10:00 FiO2 83 08/07/23 10:00 Oxygen Flow Rate (L/min) 60 Oxygen Delivery Method Airvo Weight: 84 kg Body Mass Index (BMI) 29.7 Intake & Output: Intake and Output for Last 24 Hours 08/05/23 08/06/23 08/07/23 23:59 23:59 23:59 Intake Total 828.83 / 828.83 1241.48 / 1241.48 628.2 / 628.2 Output Total 875 / 1800 2650 / 3050 1300 / 1300 Balance -46.17 / -971.17 -1408.52 / -1808.52 -671.8 / -671.8 Lab / Micro Data Attestation: I reviewed the patient's lab results. 08/07/23 03:30 08/07/23 03:30 Labs: Laboratory Results - last 24 hr 08/07/23 03:30: WBC 11.6 H, RBC 4.07 L, Hgb 10.2 L, Hct 33.8 L, MCV 83.0, MCH 25.1 L, MCHC 30.2 L, RDW Std Deviation 47.0 H, RDW Coeff of Raghavendra 15.6 H, Plt Count 432, MPV 11.5, Immature Gran % (Auto) 0.400, Neut % (Auto) 79.3 H, Lymph % (Auto) 9.9 L, [place] % (Auto) 10.0, Eos % (Auto) 0.1, Baso % (Auto) 0.3, Absolute Neuts (auto) 9.2 H, Absolute Lymphs (auto) 1.14, Nucleated RBC % 0, APTT 64.0 H, Sodium 137, Potassium 2.7 L*, Chloride 91 L, Carbon Dioxide 37.0 H, Anion Gap 9, BUN 74 H, Creatinine 2.28 H, Estim Creat Clear Calc 30.53, Est GFR (MDRD) Af Amer 37 L, Est GFR (MDRD) Non-Af 30 L, BUN/Creatinine Ratio 32.5 H, Glucose 162 H, Calcium 9.2, Magnesium 2.7 H, Total Bilirubin 0.40, AST 17, ALT 20, Alkaline Phosphatase 63, Total Protein 6.6, Albumin 2.5 L, Globulin 4.1, Albumin/Globulin Ratio 0.6 L Micro: Microbiology 08/04/23 00:00 Sputum, Expectorated/Coughed Gram Stain - Final 08/04/23 00:00 Sputum, Expectorated/Coughed Respiratory Culture - Final 08/03/23 21:57 Urine, Random Legionella Antigen - Final 08/03/23 21:57 Urine, Random Streptococcus pneumoniae Antigen (M - Final 08/03/23 18:30 Mucosa - Nose SARS-CoV-2, Influenza & RSV (PCR) - Final Radiography Diagnostic Testing: Radiology Impression Chest X-Ray 08/06/23 10:45 IMPRESSION: Stable bilateral pneumonia. Electronically Signed: Ilir Silva MD at 11:04 EDT , Physical Exam Const alert and oriented x3 General Appearance: well developed Orientation / Consciousness: oriented to person, oriented to place and oriented to time HEENT normocephalic Head and Scalp: atraumatic Neck no lymphadenopathy Resp Auscultation: crackles right and left GI non-tender Auscultation: normoactive bowel sounds Neuro Sensorium / Orientation: awake and alert Psych cooperative Assessment & Plan Assessment/Plan (1) TRENA (acute kidney injury): PLAN: As creatinine seems to have been improving with diuresis, I suspect there was some component of cardiorenal syndrome. Hypokalemia is due to diuretics and should be treated by aggressive supplementation at this point. He still appears to be quite short of breath and oxygen requirements are still high, so continue with diuretics at this time. Monitor kidney function. Awaiting decision of cardiology regarding cardiac catheterization
--- NOTE | 2023-08-07 11:10 | PN.CC_ITS ---
Objective Data Objective Data Vital Signs: Vital Signs Last response Temperature 36.6 C 08/07/23 08:00 Temperature Source Temporal 08/07/23 08:00 Pulse Rate 115 H 08/07/23 10:00 Pulse Strength Normal (2+) 08/06/23 10:00 Respiratory Rate 26 H 08/07/23 10:00 Respiratory Effort Short of Breath, Labored 08/07/23 08:00 Respiratory Depth Shallow 08/07/23 08:00 Respiratory Pattern Tachypnea 08/07/23 08:00 Blood Pressure 111/68 08/07/23 10:00 Blood Pressure Mean 82 08/07/23 10:00 Blood Pressure Source Monitor 08/07/23 10:00 Blood Pressure Position Semi-Fowlers 08/07/23 10:00 Blood Pressure Location Right Arm 08/07/23 10:00 Pulse Ox 93 08/07/23 10:00 Oxygen Delivery Method Airvo 08/07/23 10:00 Oxygen Flow Rate (L/min) 60 08/07/23 10:00 Fraction of Inspired Oxygen (FIO2) 83 08/07/23 10:00 I&O: I&O Last 24 Hours 08/06/23 08/06/23 08/07/23 11:59 23:59 11:59 Intake Total 71.68 / 1241.48 1169.8 / 1241.48 628.2 / 628.2 Output Total 1550 / 3050 1100 / 3050 1300 / 1300 Balance -1478.32 / -1808.52 69.8 / -1808.52 -671.8 / -671.8 I&O: Total Stay 08/03/23 13:43 thru 08/07/23 10:06 Intake Total 3736.49 Output Total 5175 Balance -1438.51 Current Meds Ordered / Administered: Current meds ordered / Administered Generic Name Dose Route Start Last Admin Trade Name Freq PRN Reason Stop Dose Admin Acetaminophen 650 mg 08/03/23 17:36 Acetaminophen 325 Mg Tablet PO Q6H PRN PRN Pain 1-10 Or Fever >100.7 Albuterol Sulfate 2.5 mg 08/03/23 17:36 08/05/23 04:31 Albuterol 2.5 Mg/3 Ml Vial.Neb. INHALATION 2.5 mg Q2H PRN PRN Administration SHORTNESS OF BREATH Amlodipine Besylate 5 mg 08/04/23 10:00 08/07/23 07:48 Amlodipine 5 Mg Tablet PO 5 mg DAILY REY Administration Protocol Aspirin 81 mg 08/04/23 08:00 08/07/23 07:48 Aspirin E.C. 81 Mg Tablet PO 81 mg BREAKFAST REY Administration Guaifenesin 600 mg 08/03/23 22:00 08/07/23 07:48 Guaifenesin 600 Mg Tablet PO 600 mg BID REY Administration Heparin Sodium (Porcine) 0 unit 08/03/23 15:35 08/03/23 22:12 Heparin Injection (Vial) 5,000 Unit/Ml Vial IV 1,000 unit UD PRN Administration dose adjustment Protocol Heparin Sodium/Dextrose 25,000 units in 250 mls @ 10 mls/hr 08/03/23 15:30 08/07/23 03:28 CONT INF 1,600 units/hr .Q25H REY 16 mls/hr Administration Protocol As Directed Sodium Chloride 250 mls @ 15 mls/hr 08/04/23 23:09 08/07/23 08:58 IV 15 mls/hr .[id number] PRN Administration Additional IVPB Infusion Sodium Chloride 250 mls @ 15 mls/hr 08/04/23 23:09 IV .[id number] PRN Saline Flush Furosemide 500 mg/ N/A 50 mls @ 1 mls/hr 08/05/23 10:00 08/06/23 08:30 CONT INF 10 mg/hr .Q50H REY 1 mls/hr Administration 10 MG/HR Azithromycin 500 mg/ Dextrose 255 mls @ 250 mls/hr 08/06/23 11:30 08/07/23 10:06 IV Infused Q24 REY Infusion Ceftriaxone Sodium 2 gm/ 50 mls @ 100 mls/hr 08/06/23 11:45 08/07/23 08:55 Sodium Chloride IV Infused Q24 REY Infusion Potassium Chloride 10 meq in 100 mls @ 100 mls/hr 08/07/23 08:15 08/07/23 10:05 IV BOLUS 08/07/23 12:14 100 mls/hr Q1H REY Administration Lorazepam 0.5 mg 08/06/23 09:39 Lorazepam 2 Mg/Ml Syringe IV Q6H PRN PRN ANXIETY Lorazepam 0.5 mg 08/06/23 09:42 08/06/23 20:47 Lorazepam 0.5 Mg Tablet PO 0.5 mg Q6H PRN PRN Administration ANXIETY Morphine Sulfate 2 - 4 mg 08/03/23 17:36 08/05/23 11:44 Morphine 2 Mg/Ml Syringe IV 4 mg Q3H PRN PRN Administration Pain Score 6-10 Ondansetron HCl 4 mg 08/03/23 17:36 Ondansetron 4 Mg/2 Ml Vial IV Q8H PRN PRN NAUSEA/VOMITING Oxycodone HCl 5 mg 08/03/23 17:36 Oxycodone 5 Mg Tablet PO Q4H PRN PRN Pain Score 4-10 Potassium Chloride 40 meq 08/05/23 08:00 08/07/23 07:48 Potassium Chloride Oral Tablet 20 Meq PO 40 meq BIDCM REY Administration Sodium Chloride 10 - 40 ml 08/03/23 17:59 08/07/23 03:28 0.9% Saline Lock 10 Ml Syringe IV 40 ml UD PRN Administration SALINE FLUSH Lab / Micro Data 08/07/23 03:30 08/07/23 03:30 Labs: Laboratory Results - last 24 hr 08/07/23 03:30: WBC 11.6 H, RBC 4.07 L, Hgb 10.2 L, Hct 33.8 L, MCV 83.0, MCH 25.1 L, MCHC 30.2 L, RDW Std Deviation 47.0 H, RDW Coeff of Raghavendra 15.6 H, Plt Count 432, MPV 11.5, Immature Gran % (Auto) 0.400, Neut % (Auto) 79.3 H, Lymph % (Auto) 9.9 L, [place] % (Auto) 10.0, Eos % (Auto) 0.1, Baso % (Auto) 0.3, Absolute Neuts (auto) 9.2 H, Absolute Lymphs (auto) 1.14, Nucleated RBC % 0, APTT 64.0 H, Sodium 137, Potassium 2.7 L*, Chloride 91 L, Carbon Dioxide 37.0 H, Anion Gap 9, BUN 74 H, Creatinine 2.28 H, Estim Creat Clear Calc 30.53, Est GFR (MDRD) Af Amer 37 L, Est GFR (MDRD) Non-Af 30 L, BUN/Creatinine Ratio 32.5 H, Glucose 162 H, Calcium 9.2, Magnesium 2.7 H, Total Bilirubin 0.40, AST 17, ALT 20, Alkaline Phosphatase 63, Total Protein 6.6, Albumin 2.5 L, Globulin 4.1, Albumin/Globulin Ratio 0.6 L Micro: Microbiology 08/04/23 00:00 Sputum, Expectorated/Coughed Gram Stain - Final 08/04/23 00:00 Sputum, Expectorated/Coughed Respiratory Culture - Final Assessment and Plan . Assessment and plan: Critical Care Time: The entirety of this encounter was done via Telemedicine Subjective Subjective Brief summary: 72-year-old male, with a history as outlined below, who presented to the emergency department on August 02 with progressive exertional dyspnea. The patient has no pre-existing lung conditions. He stated that he does not utilize supplemental oxygen at his baseline. He has never been diagnosed with o bstructive sleep apnea. The patient denied a history of VTE. The patient does have chronic kidney disease and follows with an outpatient licensed nursing assistant. On presentation to the emergency department, the patient was documented to be afebrile hemodynamically stable. He was initially documented to be saturating in the mid 90s on room air. Laboratory evaluation revealed a normal white blood cell count. Chemistry profile was notable for a sodium of 134, potassium of 2.7, chloride of 96 and creatinine of 2.02. Troponin was elevated at 13,391 with a BNP of 1259. Chest imaging demonstrated patchy bilateral infiltrates. Strep and urine Legionella antigens were negative. COVID, influenza and RSV PCR's were negative. Sputum culture was collected. The patient was subsequently admitted to the medical intensive care unit for further management. The patient was ultimately evaluated by cardiology over concerns for an NSTEMI. He was placed on a heparin infusion and echocardiogram was obtained. That study demonstrated normal LV size and function with an ejection fraction of 55%. Diastolic function was unable to be assessed. RVSP was unable to be estimated. This morning, the patient was initiated on a Lasix infusion. Sub: Pt seen and examined. Up in chair. Feels better but still gets easily dyspneic on minimal activity. Stable on HHFNC 60L/85% at this time and overnight on NIV FiO2 55%. Excellent UOP. Lasix @ 10 mg/hr Hep gtt PE: General: Well developed, in no distress HEENT: anicteric Sclera, nl nose; supple neck, no masses Cardiovascular: S1/S2; No rubs, gallops; no displaced PM Respiratory: diminished; no crackles, wheezes, or rhonchi Abdominal: Non-tender; Non distended; hypoBS x 4; No Hepatosplenomegaly Extremities: Warm, well perfused; No clubbing, cyanosis; capillary refill < 2 sec Skin: intact, no rashes Neurological: no gross deficits appreciated A/P: #Acute hypoxemic respiratory failure: cont alternating NIV PRN; titrate Fio2 to keep sats ~90-92%: encourage mobilization/IS use to minimize atelectasis; F/U CXR 08/05 stable BL infiltrates/airspace disease, pend VQ scan #PNA: worsening leukocytosis; started emp Abx- ceftriax/azithro 08/05 --> WBCs improved #NSTEMI: on hep gtt; cont per cardiology #HFpEF, acute exacerbation: cont diuresis with Lasix gtt #TRENA on CKD: nephrology on board and managing; cont strict I/Os; monitor lytes & replace K as needed #DVT: LE US positive for acute thrombos in Rt peroneal vein; cont hep gtt PO diet Hep gtt Guarded prognosis CCT: 50 min The entirety of the encounter was completed via telemedicine.
[2023-08-07 14:44] LABS: Anion Gap 9 (5-15); BUN 81 mg/dL (7-18); BUN/Creat Ratio 33.3 RATIO (10-20); Calcium,Total 9.2 mg/dL (8.5-10.1); Chloride 89 mmol/L (98-107); Creatinine, Serum 2.43 mg/dL (0.70-1.30); EST Glomerular Filtration Rate 28 mL/min (>60); Est Glom Filt Rate - Afr Amer 34 mL/min (>60); Estimated Creatinine Clearance 28.35 ml/min; Glucose 153 mg/dL (74-106); Potassium 3.4 mmol/L (3.5-5.1); Sodium Level 134 mmol/L (136-145)
--- NOTE | 2023-08-07 15:00 | PN.CARD_ITS ---
Subjective Subjective Shortness of breath is improving. Objective Data Vital Signs: Vital Signs Temp Pulse Resp BP Pulse Ox O2 Del Method O2 Flow Rate 99.3 F H 113 H 35 H 129/83 H 91 Airvo 60 08/07/23 12:00 08/07/23 14:00 08/07/23 14:00 08/07/23 14:00 08/07/23 14:00 08/07/23 14:00 08/07/23 14:00 FiO2 80 08/07/23 14:00 Oxygen Flow Rate (L/min) 60 Oxygen Delivery Method Airvo Weight: 185 lb 3.013 oz Body Mass Index (BMI) 29.7 Intake & Output: Intake and Output for Last 24 Hours 08/05/23 08/06/23 08/07/23 23:59 23:59 23:59 Intake Total 828.83 / 828.83 1241.48 / 1241.48 1328.2 / 1328.2 Output Total 875 / 1800 2650 / 3050 2200 / 2200 Balance -46.17 / -971.17 -1408.52 / -1808.52 -871.8 / -871.8 Lab / Micro Data 08/07/23 03:30 08/07/23 14:10 Labs: Laboratory Results - last 24 hr 08/07/23 03:30: WBC 11.6 H, RBC 4.07 L, Hgb 10.2 L, Hct 33.8 L, MCV 83.0, MCH 25.1 L, MCHC 30.2 L, RDW Std Deviation 47.0 H, RDW Coeff of Raghavendra 15.6 H, Plt Count 432, MPV 11.5, Immature Gran % (Auto) 0.400, Neut % (Auto) 79.3 H, Lymph % (Auto) 9.9 L, [place] % (Auto) 10.0, Eos % (Auto) 0.1, Baso % (Auto) 0.3, Absolute Neuts (auto) 9.2 H, Absolute Lymphs (auto) 1.14, Nucleated RBC % 0, APTT 64.0 H, Sodium 137, Potassium 2.7 L*, Chloride 91 L, Carbon Dioxide 37.0 H, Anion Gap 9, BUN 74 H, Creatinine 2.28 H, Estim Creat Clear Calc 30.53, Est GFR (MDRD) Af Amer 37 L, Est GFR (MDRD) Non-Af 30 L, BUN/Creatinine Ratio 32.5 H, Glucose 162 H, Calcium 9.2, Magnesium 2.7 H, Total Bilirubin 0.40, AST 17, ALT 20, Alkaline Phosphatase 63, Total Protein 6.6, Albumin 2.5 L, Globulin 4.1, Albumin/Globulin Ratio 0.6 L 08/07/23 14:10: Sodium 134 L, Potassium 3.4 L, Chloride 89 L, Carbon Dioxide 36.0 H, Anion Gap 9, BUN 81 H, Creatinine 2.43 H, Estim Creat Clear Calc 28.35, Est GFR (MDRD) Af Amer 34 L, Est GFR (MDRD) Non-Af 28 L, BUN/Creatinine Ratio 33.3 H, Glucose 153 H, Calcium 9.2 Micro: Microbiology 08/04/23 00:00 Sputum, Expectorated/Coughed Gram Stain - Final 08/04/23 00:00 Sputum, Expectorated/Coughed Respiratory Culture - Final Cardiology Labs/Tests 08/07/23 03:30: WBC 11.6 H, RBC 4.07 L, Hgb 10.2 L, Hct 33.8 L, MCV 83.0, MCH 25.1 L, MCHC 30.2 L, Plt Count 432, MPV 11.5, Immature Gran % (Auto) 0.400, Neut % (Auto) 79.3 H, Lymph % (Auto) 9.9 L, [place] % (Auto) 10.0, Eos % (Auto) 0.1, Baso % (Auto) 0.3, Absolute Neuts (auto) 9.2 H, Nucleated RBC % 0, APTT 64.0 H, Sodium 137, Potassium 2.7 L*, Chloride 91 L, Carbon Dioxide 37.0 H, Anion Gap 9, BUN 74 H, Creatinine 2.28 H, Est GFR (MDRD) Af Amer 37 L, Est GFR (MDRD) Non-Af 30 L, BUN/Creatinine Ratio 32.5 H, Glucose 162 H, Calcium 9.2, Magnesium 2.7 H, Total Bilirubin 0.40 08/07/23 14:10: Sodium 134 L, Potassium 3.4 L, Chloride 89 L, Carbon Dioxide 36.0 H, Anion Gap 9, BUN 81 H, Creatinine 2.43 H, Est GFR (MDRD) Af Amer 34 L, Est GFR (MDRD) Non-Af 28 L, BUN/Creatinine Ratio 33.3 H, Glucose 153 H, Calcium 9.2 Rhythm: EKG: ECHO: Stress Test: Cardiac Cath: PCI: CT Surgery: Holter monitor: EPS: PPM: CXR: Chest CT Scan: Physical Exam Const alert and oriented x3 HEENT normocephalic Eyes no scleral icterus Resp Resp Narrative: Right basal crackles Assessment & Plan Assessment/Plan (1) Non-STEMI (non-ST elevated myocardial infarction): PLAN: Continue IV heparin and IV Lasix. Replace potassium. If creatinine is stable and okay with nephrology, possible cath tomorrow. Charges/Coding Visit Charges Inpatient E&M: 21150 Subs Hosp L1
[2023-08-07] MEDS: LORazepam 0.5 MG Tablet PO (21:04)
[2023-08-08] VITALS (39 sets, daily range): BP systolic 94–140; BP diastolic 60–89; PULSE 76–122; RESP 11–50; TEMP 37–37.1; O2SAT 88–98; BMI 29.9
[2023-08-08 03:03] LABS: Absolute Lymphocyte Count 1.63 X10^3/uL (0.83-4.51); Absolute Neutrophil Count 10.3 X10^3/uL (2.0-7.7); Basophil# 0.04 X10^3/uL; Basophil% 0.3 % (0-1); Eosinophil# 0.02 X10^3/uL; Eosinophils% 0.1 % (0-5); Hematocrit 35.9 % (40-54); Hemoglobin 10.9 g/dL (13.0-16.5); Lymphocyte # 1.63 X10^3/ul (0.83-4.51); Mean Corp Hgb Conc 30.4 g/dL (32-36); Mean Corpuscular Hgb 25.3 pg (27.0-32.0); Mean Corpuscular Volume 83.5 fL (80-94); Mean Platelet Vol. 12.3 fl (6.2-12.0); Monocyte# 1.52 X10^3/uL; Monocyte% 11.2 % (0-10); NRBC Flagged by Analyzer 0 % (0-5); Neutrophil # 10.27 X10^3/uL (2.7-7.7); Neutrophil % 75.8 % (47-70); POSITIVE DIFFERENTIAL YES; Platelet Count 475 K/mm3 (150-450); RBC Distribution Width CV 15.8 % (11.6-14.6); RBC Distribution Width SD 47.7 fl (35.1-43.9); White Blood Count 13.6 K/mm3 (4.4-11.0)
[2023-08-08 03:20] LABS: Anion Gap 11 (5-15); BUN 82 mg/dL (7-18); BUN/Creat Ratio 32.7 RATIO (10-20); Calcium,Total 9.1 mg/dL (8.5-10.1); Chloride 88 mmol/L (98-107); Creatinine, Serum 2.51 mg/dL (0.70-1.30); EST Glomerular Filtration Rate 27 mL/min (>60); Est Glom Filt Rate - Afr Amer 33 mL/min (>60); Estimated Creatinine Clearance 27.44 ml/min; Glucose 165 mg/dL (74-106); Potassium 3.2 mmol/L (3.5-5.1); Sodium Level 135 mmol/L (136-145)
[2023-08-08 03:29] LABS: Differential Indicated SCAN CRITERIA MET
[2023-08-08 03:40] LABS: Partial Thromboplast Time 70.5 Seconds (24.1-36.2)
[2023-08-08 04:10] LABS: Differential Comment SCANNED
[2023-08-08] MEDS: amLODIPine 5 MG Tablet PO (04:41)
[2023-08-08] MEDS: Aspirin E.C. 81 MG Tablet PO (04:41)
--- NOTE | 2023-08-08 05:55 | EKG12_ITS ---
Test Reason : am ekg Blood Pressure : / mmHG Vent. Rate : 104 BPM Atrial Rate : 104 BPM P-R Int : 146 ms QRS Dur : 160 ms QT Int : 398 ms P-R-T Axes : 054 074 -27 degrees QTc Int : 523 ms Sinus tachycardia Right bundle branch block T wave abnormality, consider inferior ischemia Abnormal ECG When compared with ECG of 04-AUG-2023 07:00, MANUAL COMPARISON REQUIRED, DATA IS UNCONFIRMED Confirmed by ERIC JONES, FLETCHER ([id number]), assistant editor PRICILA MASCORRO ([id number]) on 08/11/2023 11:42:10 AM Referred By: Confirmed By:FLETCHER REYES MD
--- NOTE | 2023-08-08 06:58 | PCM.PN.INT ---
Assessment & Plan Assessment/Plan (1) Non-STEMI (non-ST elevated myocardial infarction): PLAN: Plan RECOMMENDATIONS: 1. Continue to wean FiO2 to maintain oxygen saturations at or above 90%. 2. Obtain follow-up chest x-ray this morning. 3. Continue weight-based heparin infusion. 4. Continue Lasix infusion and potassium repletion as needed. 5. Cardiology following with tentative plans for ischemic evaluation at some point. 6. Continue empiric antimicrobials. IMPRESSIONS: 1. Acute hypoxemic respiratory failure Clinical suspicion for underlying decompensated heart failure with preserved ejection fraction in the setting of an NSTEMI, along with possible PE and pneumonia as contributing etiologies. Unfortunately, CTA chest is not able to be obtained due to underlying renal insufficiency. However, lower extremity Doppler study was positive for DVT. Therefore, recommend continuing weight-based heparin infusion for now. Ultimately, the patient is going to require an ischemic evaluation by cardiology. He will be continued on a Lasix infusion as tolerated by hemodynamics and renal function. In addition, empiric antibiotics will be continued to complete 7 days of therapy. Continue to wean FiO2 to maintain oxygen saturations at or above 90%. Follow-up chest x-ray will be obtained this morning. 2. NSTEMI/acute decompensated heart failure with preserved ejection fraction Management as noted above. Will defer additional intervention/workup to cardiology. 3. Acute on chronic kidney disease Nephrology consultation will be obtained. Continue ongoing attempts at volume optimization as tolerated by hemodynamics and renal function. This note was generated with [employer] dictation software. It may contain incorrect words, spelling, and punctuation that were not noted in checking the note before signing. Subjective Subjective The patient was seen and examined at the bedside this morning. Events from the last 24 hours have been reviewed. The patient remains afebrile hemodynamically stable. His respiratory status remains tenuous, as the patient continues to transition between AVAPS therapy and heated high flow oxygen. He is currently documented to be overall net -2 L for the hospitalization. Anxiety continues to be an ongoing issue. Potassium is low this morning at 3.2 with a bicarbonate of 36 and creatinine of 2.51. Cardiology is considering possible cardiac catheterization. Objective Data Objective Data The patient's most recent lab work, culture data and imaging studies have all been personally reviewed. Surface echocardiogram demonstrated normal LV size and function with an ejection fraction of 55%. Doppler study was positive for right-sided DVT. Infectious workup has been unrevealing to date. Vital Signs: Vital Signs Temp Pulse Resp BP Pulse Ox O2 Del Method O2 Flow Rate 98.8 F 101 H 25 H 117/83 H 96 Bi-pap 60 08/08/23 04:00 08/08/23 06:00 08/08/23 06:00 08/08/23 06:00 08/08/23 06:00 08/08/23 06:00 08/07/23 21:00 FiO2 55 08/08/23 06:00 Oxygen Flow Rate (L/min) 60 Oxygen Delivery Method Bi-pap Weight: 185 lb 6.54 oz Body Mass Index (BMI) 29.9 Intake & Output: Intake and Output for Last 24 Hours 08/06/23 08/07/23 08/08/23 23:59 23:59 23:59 Intake Total 1241.48 / 1241.48 1565.27 / 1815.27 600 / 600 Output Total 2650 / 3050 2300 / 2550 1150 / 1150 Balance -1408.52 / -1808.52 -734.73 / -734.73 -550 / -550 Lab / Micro Data Attestation: I reviewed the patient's lab results. 08/08/23 02:35 08/08/23 02:35 Labs: Laboratory Results - last 24 hr 08/07/23 03:30: Magnesium 2.7 H 08/07/23 14:10: Sodium 134 L, Potassium 3.4 L, Chloride 89 L, Carbon Dioxide 36.0 H, Anion Gap 9, BUN 81 H, Creatinine 2.43 H, Estim Creat Clear Calc 28.35, Est GFR (MDRD) Af Amer 34 L, Est GFR (MDRD) Non-Af 28 L, BUN/Creatinine Ratio 33.3 H, Glucose 153 H, Calcium 9.2 08/08/23 02:35: WBC 13.6 H, RBC 4.30 L, Hgb 10.9 L, Hct 35.9 L, MCV 83.5, MCH 25.3 L, MCHC 30.4 L, RDW Std Deviation 47.7 H, RDW Coeff of Raghavendra 15.8 H, Plt Count 475 H, MPV 12.3 H, Immature Gran % (Auto) 0.600, Neut % (Auto) 75.8 H, Lymph % (Auto) 12.0 L, [place] % (Auto) 11.2 H, Eos % (Auto) 0.1, Baso % (Auto) 0.3, Absolute Neuts (auto) 10.3 H, Absolute Lymphs (auto) 1.63, Nucleated RBC % 0, Differential Comment SCANNED, Diff Path Review August, APTT 70.5 H, Sodium 135 L, Potassium 3.2 L, Chloride 88 L, Carbon Dioxide 36.0 H, Anion Gap 11, BUN 82 H, Creatinine 2.51 H, Estim Creat Clear Calc 27.44, Est GFR (MDRD) Af Amer 33 L, Est GFR (MDRD) Non-Af 27 L, BUN/Creatinine Ratio 32.7 H, Glucose 165 H, Calcium 9.1 Micro: Microbiology 08/04/23 00:00 Sputum, Expectorated/Coughed Gram Stain - Final 08/04/23 00:00 Sputum, Expectorated/Coughed Respiratory Culture - Final 08/03/23 21:57 Urine, Random Legionella Antigen - Final 08/03/23 21:57 Urine, Random Streptococcus pneumoniae Antigen (M - Final 08/03/23 18:30 Mucosa - Nose SARS-CoV-2, Influenza & RSV (PCR) - Final Physical Exam Const alert and oriented x3 Constitutional Narrative: Tolerating heated high flow currently. Remains anxious in appearance. General Appearance: cooperative HEENT normocephalic and head/scalp atraumatic Eyes PERRL, EOMs intact bilaterally and conjunctivae normal Neck supple General: trachea midline Chest inspection of chest normal Resp Effort and Inspection: tachypneic Auscultation: rales and diminished lung sounds; Negative for rhonchi or wheezes Cardio S1 normal heart sound and S2 normal heart sound Rate: tachycardic GI normal to inspection, nondistended, normoactive bowel sounds Extremity no clubbing, cyanosis or edema Skin no rashes or lesions noted Neuro CN's II-XII intact bilaterally and no focal motor deficits Psych Mood & Affect: anxious Charges/Coding Visit Charges Inpatient E&M: 89922 Subs Hosp L3
--- NOTE | 2023-08-08 07:28 | PCM.PN.HOSP ---
Reason for Visit Reason for Visit: Diagnoses Non-ST elevation (NSTEMI) myocardial infarction (08/03/23) Pneumonia, unspecified organism (08/03/23) Acute kidney failure, unspecified (08/03/23) Chronic kidney disease, stage 3b (08/03/23) Subjective Subjective Patient is a 72-year-old gentleman admitted with shortness of breath was found to have elevated troponin consistent with acute non-STEMI treatment initiated per protocol admitted to the intensive care unit. Patient was found to be in acute respiratory failure resulting in the use of BiPAP Objective Data Objective Data Vital Signs: Vital Signs Temp Pulse Resp BP Pulse Ox O2 Del Method O2 Flow Rate 98.8 F 105 H 26 H 124/89 H 93 Bi-pap 60 08/08/23 04:00 08/08/23 07:00 08/08/23 07:00 08/08/23 07:00 08/08/23 07:00 08/08/23 07:00 08/07/23 21:00 FiO2 55 08/08/23 07:00 Oxygen Flow Rate (L/min) 60 Oxygen Delivery Method Bi-pap Weight: 84.1 kg Body Mass Index (BMI) 29.9 Intake & Output: Intake and Output for Last 24 Hours 08/06/23 08/07/23 08/08/23 23:59 23:59 23:59 Intake Total 1241.48 / 1241.48 1565.27 / 1815.27 600 / 600 Output Total 2650 / 3050 2300 / 2550 1150 / 1150 Balance -1408.52 / -1808.52 -734.73 / -734.73 -550 / -550 Lab / Micro Data 08/08/23 02:35 08/08/23 02:35 Labs: Laboratory Results - last 24 hr 08/07/23 03:30: Magnesium 2.7 H 08/07/23 14:10: Sodium 134 L, Potassium 3.4 L, Chloride 89 L, Carbon Dioxide 36.0 H, Anion Gap 9, BUN 81 H, Creatinine 2.43 H, Estim Creat Clear Calc 28.35, Est GFR (MDRD) Af Amer 34 L, Est GFR (MDRD) Non-Af 28 L, BUN/Creatinine Ratio 33.3 H, Glucose 153 H, Calcium 9.2 08/08/23 02:35: WBC 13.6 H, RBC 4.30 L, Hgb 10.9 L, Hct 35.9 L, MCV 83.5, MCH 25.3 L, MCHC 30.4 L, RDW Std Deviation 47.7 H, RDW Coeff of Raghavendra 15.8 H, Plt Count 475 H, MPV 12.3 H, Immature Gran % (Auto) 0.600, Neut % (Auto) 75.8 H, Lymph % (Auto) 12.0 L, [place] % (Auto) 11.2 H, Eos % (Auto) 0.1, Baso % (Auto) 0.3, Absolute Neuts (auto) 10.3 H, Absolute Lymphs (auto) 1.63, Nucleated RBC % 0, Differential Comment SCANNED, Diff Path Review August, APTT 70.5 H, Sodium 135 L, Potassium 3.2 L, Chloride 88 L, Carbon Dioxide 36.0 H, Anion Gap 11, BUN 82 H, Creatinine 2.51 H, Estim Creat Clear Calc 27.44, Est GFR (MDRD) Af Amer 33 L, Est GFR (MDRD) Non-Af 27 L, BUN/Creatinine Ratio 32.7 H, Glucose 165 H, Calcium 9.1 Micro: Microbiology 08/04/23 00:00 Sputum, Expectorated/Coughed Gram Stain - Final 08/04/23 00:00 Sputum, Expectorated/Coughed Respiratory Culture - Final 08/03/23 21:57 Urine, Random Legionella Antigen - Final 08/03/23 21:57 Urine, Random Streptococcus pneumoniae Antigen (M - Final 08/03/23 18:30 Mucosa - Nose SARS-CoV-2, Influenza & RSV (PCR) - Final Physical Exam Narrative GENERAL: cooperative but remains dyspneic at rest HEENT: Atraumatic; normocephalic EYES; Anicteric, Normal Conjunctiva NECK; supple, normal thyroid, RESPIRATORY: Diminished to auscultation CARDIOVASCULAR: Regular S1 S2, GI: soft, normoactive bowel sounds, : No Renal angle tenderness; EXTREMITIES: No edema, no clubbing, MUSCULOSKELETAL: no muscle wasting NEURO: Awake; no lateralizing signs. SKIN: No Rash PSYCH; Flat affect Assessment & Plan Assessment/Plan (1) Non-STEMI (non-ST elevated myocardial infarction): PLAN: Plan Patient is a 72-year-old gentleman admitted with shortness of breath was found to have elevated troponin consistent with acute non-STEMI treatment initiated per protocol admitted to the intensive care unit. Patient was found to be in acute respiratory failure resulting in the use of BiPAP 1. Acute non-STEMI ? Patient admitted to the intensive care unit managed per protocol with heparin, aspirin added statin therapy and beta-blockers with consultation placed to cardiology. Plan is for patient to undergo left heart catheterization 2. Acute hypoxic respiratory failure ? Multifactorial including acute congestive heart failure, suspected PE as well as pneumonia patient placed on noninvasive ventilation Airvo. Consult placed to pneudraulic systems mechanic notes and recommendations reviewed 3. Acute VTE -Patient underwent VQ scan which was nonconclusive lower extremity duplex demonstrated acute right lower extremity DVT. Patient is on heparin 4. Acute congestive heart failure with preserved ejection fraction -Echo from 08/04/2023 demonstrated EF of 55%. Patient management strict input and output, fluid restriction as well as diuretic therapy with furosemide 5. Hypokalemia ? Corrected per protocol repeat labs ordered for subsequent management 6. Hypertension - Blood pressure controlled, patient is on amlodipine continue also on chlorthalidone held 7. Chronic kidney disease stage IIIb ? Monitoring kidney function 8. Presence of solitary kidney ? 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
[2023-08-08] MEDS: Potassium Chloride Oral Tablet 20 MEQ 40 MEQ PO ×2 (07:55→17:39)
--- NOTE | 2023-08-08 08:40 | RAD_ITS ---
STUDY: X-RAY CHEST REASON FOR EXAM: Male, 72 years old. Respiratory Failure TECHNIQUE: Single AP portable view of the chest. COMPARISON: Comparison is made with prior study August 06, 2023. FINDINGS: EKG electrodes are seen. Persistent bilateral diffuse airspace disease. There is been essentially no change. There is no demonstrated pleural abnormality. Normal size heart. Normal mediastinum and salazar. Normal visualized pulmonary arteries. There is atherosclerotic calcification of the aortic arch with tortuosity. Normal visualized thoracic spine. Normal visualized ribs, clavicles, and shoulders. There is no demonstrated abnormality of the visualized soft tissue structures of the upper abdomen. RAD/Chest 1 View (Portable) IMPRESSION: Stable bilateral airspace disease. Electronically Signed: Jack Garcia MD at 9:33 EDT ,
[2023-08-08] MEDS: LORazepam 0.5 MG Tablet PO ×2 (09:33→21:18)
[2023-08-08] MEDS: guaiFENesin 600 MG Tablet PO ×2 (09:33→21:18)
[2023-08-08] MEDS: Ceftriaxone 2 GM in 0.9% Normal Saline (50mL MB+) 50 ML IV (09:41)
[2023-08-08] MEDS: Potassium Chloride 10mEq/100mL 10 MEQ/100 ML IV.SOLN. 100 MEQ IV BOLUS ×4 (09:46→14:26)
[2023-08-08] MEDS: Metoprolol Tartrate 25 MG Tablet 12.5 MG PO (10:25)
[2023-08-08] MEDS: Azithromycin 500 MG in Dextrose 5%-Water (250mL Bag) 250 ML 250 MG IV (10:26)
--- NOTE | 2023-08-08 10:51 | PN.RENAL_ITS ---
Subjective Subjective Appears to be more short of breath today. Urine output is not great. Creatinine about the same. Chest x-ray looks worse than before. No peripheral edema. Objective Data Objective Data Vital Signs: Vital Signs Temp Pulse Resp BP Pulse Ox O2 Del Method O2 Flow Rate 98.8 F 122 H 25 H 129/77 H 89 Airvo 60 08/08/23 04:00 08/08/23 10:25 08/08/23 10:00 08/08/23 10:00 08/08/23 10:00 08/08/23 10:00 08/08/23 10:00 FiO2 83 08/08/23 10:00 Oxygen Flow Rate (L/min) 60 Oxygen Delivery Method Airvo Weight: 84.1 kg Body Mass Index (BMI) 29.9 Intake & Output: Intake and Output for Last 24 Hours 08/06/23 08/07/23 08/08/23 23:59 23:59 23:59 Intake Total 1241.48 / 1241.48 1565.27 / 1815.27 803.47 / 803.47 Output Total 2650 / 3050 2300 / 2550 1150 / 1150 Balance -1408.52 / -1808.52 -734.73 / -734.73 -346.53 / -346.53 Lab / Micro Data 08/08/23 02:35 08/08/23 02:35 Labs: Laboratory Results - last 24 hr 08/07/23 14:10: Sodium 134 L, Potassium 3.4 L, Chloride 89 L, Carbon Dioxide 36.0 H, Anion Gap 9, BUN 81 H, Creatinine 2.43 H, Estim Creat Clear Calc 28.35, Est GFR (MDRD) Af Amer 34 L, Est GFR (MDRD) Non-Af 28 L, BUN/Creatinine Ratio 33.3 H, Glucose 153 H, Calcium 9.2 08/08/23 02:35: WBC 13.6 H, RBC 4.30 L, Hgb 10.9 L, Hct 35.9 L, MCV 83.5, MCH 25.3 L, MCHC 30.4 L, RDW Std Deviation 47.7 H, RDW Coeff of Raghavendra 15.8 H, Plt Count 475 H, MPV 12.3 H, Immature Gran % (Auto) 0.600, Neut % (Auto) 75.8 H, Lymph % (Auto) 12.0 L, [place] % (Auto) 11.2 H, Eos % (Auto) 0.1, Baso % (Auto) 0.3, Absolute Neuts (auto) 10.3 H, Absolute Lymphs (auto) 1.63, Nucleated RBC % 0, Differential Comment SCANNED, Diff Path Review August, APTT 70.5 H, Sodium 135 L, Potassium 3.2 L, Chloride 88 L, Carbon Dioxide 36.0 H, Anion Gap 11, BUN 82 H, Creatinine 2.51 H, Estim Creat Clear Calc 27.44, Est GFR (MDRD) Af Amer 33 L, Est GFR (MDRD) Non-Af 27 L, BUN/Creatinine Ratio 32.7 H, Glucose 165 H, Calcium 9.1 Micro: Microbiology 08/04/23 00:00 Sputum, Expectorated/Coughed Gram Stain - Final 08/04/23 00:00 Sputum, Expectorated/Coughed Respiratory Culture - Final 08/03/23 21:57 Urine, Random Legionella Antigen - Final 08/03/23 21:57 Urine, Random Streptococcus pneumoniae Antigen (M - Final 08/03/23 18:30 Mucosa - Nose SARS-CoV-2, Influenza & RSV (PCR) - Final Radiography Diagnostic Testing: Radiology Impression Chest X-Ray 08/08/23 08:40 IMPRESSION: Stable bilateral airspace disease. Electronically Signed: Jack Garcia MD at 9:33 EDT Reading Location ID and State: [facility] / [place] , Service support , Physical Exam Narrative Alert awake oriented x 3 no obvious distress no pallor no icterus no JVD s1s2 no murmurs lungs clear abdomen soft no organomegaly no edema no cyanosis Assessment & Plan Assessment/Plan (1) TRENA (acute kidney injury): PLAN: Baseline creatinine around 2.0. Acute renal failure is likely related to cardiorenal syndrome. Chest x-ray today looks worse. Has been on Lasix drip. Average urine output about 2 to 2.5 L. Symptomatically also appears worse. No peripheral edema. We will try higher dose of Lasix today. Discussed with ICU attending. More likely fluid at this point but he is also covered with antibiotics just in case. Will attempt aggressive diuresis. Hypokalemia. Potassium replacement ordered. (2) Chronic kidney disease, stage 3b:
[2023-08-08] MEDS: HEPARIN/D5w 25,000 UNITS 25,000 UNITS/250 ML IV.SOLN. 15 UNITS CONT INF (11:01)
--- NOTE | 2023-08-08 11:06 | CASEMGMT ---
Insurance review for hospitals In-network with Medicare insurance if transfer is recommended is as follows:?[facility], [place], [facility], [facility], [facility], [facility] [place], [place], [facility], and . Nicolle Gurrola, Discharge Planning Asst.
[2023-08-08 11:47] LABS: Partial Thromboplast Time 85.2 Seconds (24.1-36.2)
--- NOTE | 2023-08-08 12:15 | PCM.RX.CS ---
Consult Antibiotic Management Pharmacy has been consulted to manage selected antibiotic: Vancomycin Type of Intervention Type of Consult: New start Suspected Infection Suspected Infection: Pneumonia Labs Labs: Sodium 135 mmol/L (136-145) L 08/08/23 02:35 Potassium 3.2 mmol/L (3.5-5.1) L 08/08/23 02:35 Chloride 88 mmol/L (98-107) L 08/08/23 02:35 Carbon Dioxide 36.0 mmol/L (21.0-32.0) H 08/08/23 02:35 Anion Gap 11 (5-15) 08/08/23 02:35 BUN 82 mg/dL (7-18) H 08/08/23 02:35 Creatinine 2.51 mg/dL (0.70-1.30) H 08/08/23 02:35 Est GFR (MDRD) Af Amer 33 mL/min (>60) L 08/08/23 02:35 Est GFR (MDRD) Non-Af 27 mL/min (>60) L 08/08/23 02:35 BUN/Creatinine Ratio 32.7 RATIO (10-20) H 08/08/23 02:35 Glucose 165 mg/dL (74-106) H 08/08/23 02:35 Microbiology Microbiology: Microbiology 08/04/23 00:00 Sputum, Expectorated/Coughed Gram Stain - Final 08/04/23 00:00 Sputum, Expectorated/Coughed Respiratory Culture - Final 08/03/23 21:57 Urine, Random Legionella Antigen - Final 08/03/23 21:57 Urine, Random Streptococcus pneumoniae Antigen (M - Final 08/03/23 18:30 Mucosa - Nose SARS-CoV-2, Influenza & RSV (PCR) - Final Dosing Weight Weight used for dosin.9 kg Estimated Creatinine Clearance Estimated Creatinine Clearance: 27.5 Goal Trough Goal Trough: 15-20 mcg/mL Pharmacy Plan for Drug Dosing Pharmacy Plan for Drug Dosing: NEW START IV VANCOMYCIN Consulting Physician: Dr. Munoz Indication: Pneumonia Goal Trough: 15-20 SrCr: 2.51 (baseline 2.0) CrCl: 27.5 ml/min Comments: Pt receiving furosemide drip (increased today for more aggressive diuresis) and Zosyn Q8H as well Vancomycin Dose: Vancomycin 2000mg x1 loading dose to be given today, followed by Vancomycin 750mg Q24H thereafter - closely monitor daily sCr changes due to TRENA Pending Level: Vancomycin trough @ 1430 08/11/23 Pharmacy Service will continue to monitor and adjust dosing as required. Follow-Up Labs Follow-Up Labs: Trough: Vancomycin (14:30 08/11/23)
--- NOTE | 2023-08-08 12:39 | PN.CARD_ITS ---
Subjective Subjective Patient seen and evaluated. Underwent cardiac catheterization today. Objective Data Vital Signs: Vital Signs Temp Pulse Resp BP Pulse Ox O2 Del Method O2 Flow Rate 98.8 F 122 H 25 H 129/77 H 89 Airvo 60 08/08/23 04:00 08/08/23 10:25 08/08/23 10:00 08/08/23 10:00 08/08/23 10:00 08/08/23 10:00 08/08/23 10:00 FiO2 83 08/08/23 10:00 Oxygen Flow Rate (L/min) 60 Oxygen Delivery Method Airvo Weight: 185 lb 6.54 oz Body Mass Index (BMI) 29.9 Intake & Output: Intake and Output for Last 24 Hours 08/06/23 08/07/23 08/08/23 23:59 23:59 23:59 Intake Total 1241.48 / 1241.48 1565.27 / 1815.27 1000.00 / 1000.00 Output Total 2650 / 3050 2300 / 2550 1800 / 1800 Balance -1408.52 / -1808.52 -734.73 / -734.73 -800.00 / -800.00 Lab / Micro Data 08/08/23 02:35 08/08/23 02:35 Labs: Laboratory Results - last 24 hr 08/07/23 14:10: Sodium 134 L, Potassium 3.4 L, Chloride 89 L, Carbon Dioxide 36.0 H, Anion Gap 9, BUN 81 H, Creatinine 2.43 H, Estim Creat Clear Calc 28.35, Est GFR (MDRD) Af Amer 34 L, Est GFR (MDRD) Non-Af 28 L, BUN/Creatinine Ratio 33.3 H, Glucose 153 H, Calcium 9.2 08/08/23 02:35: WBC 13.6 H, RBC 4.30 L, Hgb 10.9 L, Hct 35.9 L, MCV 83.5, MCH 25.3 L, MCHC 30.4 L, RDW Std Deviation 47.7 H, RDW Coeff of Raghavendra 15.8 H, Plt Count 475 H, MPV 12.3 H, Immature Gran % (Auto) 0.600, Neut % (Auto) 75.8 H, Lymph % (Auto) 12.0 L, [place] % (Auto) 11.2 H, Eos % (Auto) 0.1, Baso % (Auto) 0.3, Absolute Neuts (auto) 10.3 H, Absolute Lymphs (auto) 1.63, Nucleated RBC % 0, Differential Comment SCANNED, Diff Path Review August, APTT 70.5 H, Sodium 135 L, Potassium 3.2 L, Chloride 88 L, Carbon Dioxide 36.0 H, Anion Gap 11, BUN 82 H, Creatinine 2.51 H, Estim Creat Clear Calc 27.44, Est GFR (MDRD) Af Amer 33 L, Est GFR (MDRD) Non-Af 27 L, BUN/Creatinine Ratio 32.7 H, Glucose 165 H, Calcium 9.1 08/08/23 11:05: APTT 85.2 H Cardiology Labs/Tests 08/07/23 14:10: Sodium 134 L, Potassium 3.4 L, Chloride 89 L, Carbon Dioxide 36.0 H, Anion Gap 9, BUN 81 H, Creatinine 2.43 H, Est GFR (MDRD) Af Amer 34 L, Est GFR (MDRD) Non-Af 28 L, BUN/Creatinine Ratio 33.3 H, Glucose 153 H, Calcium 9.2 08/08/23 02:35: WBC 13.6 H, RBC 4.30 L, Hgb 10.9 L, Hct 35.9 L, MCV 83.5, MCH 25.3 L, MCHC 30.4 L, Plt Count 475 H, MPV 12.3 H, Immature Gran % (Auto) 0.600, Neut % (Auto) 75.8 H, Lymph % (Auto) 12.0 L, [place] % (Auto) 11.2 H, Eos % (Auto) 0.1, Baso % (Auto) 0.3, Absolute Neuts (auto) 10.3 H, Nucleated RBC % 0, APTT 70.5 H, Sodium 135 L, Potassium 3.2 L, Chloride 88 L, Carbon Dioxide 36.0 H, Anion Gap 11, BUN 82 H, Creatinine 2.51 H, Est GFR (MDRD) Af Amer 33 L, Est GFR (MDRD) Non-Af 27 L, BUN/Creatinine Ratio 32.7 H, Glucose 165 H, Calcium 9.1 08/08/23 11:05: APTT 85.2 H Rhythm: EKG: ECHO: Stress Test: Cardiac Cath: PCI: CT Surgery: Holter monitor: EPS: PPM: CXR: Chest CT Scan: Radiography Diagnostic Testing: Radiology Impression Chest X-Ray 08/08/23 08:40 IMPRESSION: Stable bilateral airspace disease. Electronically Signed: Jack Garcia MD at 9:33 EDT , Physical Exam Const alert, oriented x3 and no apparent distress General Appearance: cooperative HEENT hearing grossly normal bilaterally Head and Scalp: atraumatic Eyes EOMs intact bilaterally Neck General: normal visual inspection Chest inspection of chest normal and palpation of chest normal Resp normal respiratory effort Auscultation: clear to auscultation bilaterally Cardio regular rate, regular rhythm, S1 normal heart sound and S2 normal heart sound Jugular Venous Distention: JVD GI normal to inspection, nondistended, normoactive bowel sounds Extremity normal capillary refill and no pedal edema Peripheral Pulses: Yes pulses 2+ throughout and femoral pulses present Skin no rashes or lesions noted Neuro oriented x3 and CN's II-XII intact bilaterally Psych Appearance: grossly normal and appropriate Assessment & Plan Assessment/Plan (1) Non-STEMI (non-ST elevated myocardial infarction): PLAN: Patient underwent cardiac catheterization with 15 cc of contrast agent only. It demonstrated the following: * Normal left main coronary artery * First diagonal vessel with 90% long proximal stenosis * Left anterior descending artery with mild disease * Nondominant left circumflex artery with first obtuse marginal branch with 70% stenosis * Totally occluded right coronary artery with [id number] collaterals * Low normal left ventricular ejection fraction noted on echocardiogram with dilated right ventricle. * Would recommend medical therapy for the coronary artery disease and to consider the possible pulmonary embolism and treatment based on the dilated RV. * * Above discussed with hospitalist, nursing, steam shovel runner, lead pastor.
--- NOTE | 2023-08-08 12:40 | CL.D_ITS ---
Patient Name: DINH SIN Study Date: 08/08/2023 Performing: Neftaly Sparrow MD Ht: 66 inches 167.64 cm : 1950 Wt: 185.41 lbs 84.1 kg Age: 72 Gender: male BSA: 1.94 PROCEDURE(S) PERFORMED [id number])[facility] CLINICAL PROFILE AND INDICATIONS Indications: ACS <= 24 hrs Heart Failure: None Stress/Imaging Stress/Image Study Performed: No CAD Presentations: Non-STEMI. Symptom onset Date/Time: 08/03/23 Time Not Available CONCLUSIONS Coronary disease with high-grade first diagonal vessel likely culprit vessel, moderately severe disease noted in the circumflex artery and a totally occluded right coronary artery with [id number] collaterals. The latter is likely chronic. Total contrast used 15 cc. RECOMMENDATIONS Would recommend medical therapy versus interval PCI. Hydrate aggressively. DESCRIPTION OF PROCEDURE The patient arrived to the procedure lab. The risks and benefits of the procedure as well as a full description of our services here and current unavailability of surgical backup were fully explained to the patient and/or their significant other prior to the catheterization. The Timeout was completed, verifying the correct patient and procedure. The patient's procedural site was prepped and draped in the usual fashion. Local anesthetic was given subcutaneously to left radial region with Lidocaine 2%. Using a modified Seldinger technique, arterial access was obtained via the right radial artery, a 6Fr sheath was inserted. Left Coronary Artery selective angiography was performed in multiple views using a 5 Fr. 4.0 Wendell catheter. Right Coronary Artery selective angiography was then performed in multiple views using a 5 Fr. 4.0 Wendell catheter.The arterial sheath was pulled and a TR Band was applied for hemostasis CORONARY ANGIOGRAPHY DOMINANCE: Right Dominant LEFT HEART ASSESSMENT Left Ventricular Ejection Fraction: by Echo 50 % LEFT MAIN: Angiographically normal LEFT ANTERIOR DESCENDING ARTERY: Medium size vessel with first diagonal demonstrating 99% proximal stenotic lesion with good distal vessel, second diagonal with mild disease, the left anterior descending artery and the proximal mid and distal regions has mild stenosis with evidence of [id number] collaterals. CIRCUMFLEX ARTERY: Nondominant vessel with first obtuse marginal branch with 70% proximal stenosis left to right collaterals noted RIGHT CORONARY ARTERY: MID RCA: is occluded COLLATERAL FLOW: Collateral flow from Left to Right COMPLICATIONS No Complications PROCEDURE MEDICATIONS Oxygen: 100 % FiO2 via ventilator. See Resp Record for Settings Lasix drip and potassium drip running, Is a continuation from the unit Heparin given IA 08/08/2023 12:12:17 Verapamil 2.5mg, Ntg 100mcgs, 3000 units of Heparin given IA 08/08/2023 12:12:17 SUMMARY OF HEMODYNAMIC DATA Time AIR REST Art 104/58 (70) 12:13:04 AO 100/70 (81) SA 12:17:51 ECG 12:38:34 12:38:34 Signed By Neftaly Sparrow MD On 08/08/2023 12:39:28 Neftaly Sparrow MD
[2023-08-08] MEDS: Vancomycin HCl 2,000 MG in 0.9% Normal Saline (500mL Bag) 500 ML 250 MG IV (12:59)
[2023-08-08 13:05] LABS: M R Staph aureus DNA By PCR Negative (Negative); Probe Check PASS; Specimen Processing Control PASS
[2023-08-08] MEDS: Furosemide 500 MG in Empty Viaflex 50 mL 1 EACH CONT INF (13:05)
[2023-08-08] MEDS: metOLazone 5 MG Tablet PO (13:16)
[2023-08-08] MEDS: Piperacil/Tazobactam 3.375 GM in 0.9% Normal Saline (50mL MB+) 50 ML IV ×2 (15:21→21:18)
[2023-08-08] MEDS: APIXABAN 5 MG TABLET 10 MG PO (21:18)
[2023-08-08] MEDS: Atorvastatin Calcium 40 MG Tablet PO (21:18)
[2023-08-09] VITALS (32 sets, daily range): BP systolic 103–133; BP diastolic 68–95; PULSE 91–106; RESP 12–34; TEMP 36.6–36.8; O2SAT 90–99; BMI 30.4
[2023-08-09 03:36] LABS: Absolute Lymphocyte Count 1.26 X10^3/uL (0.83-4.51); Absolute Neutrophil Count 7.2 X10^3/uL (2.0-7.7); Basophil# 0.03 X10^3/uL; Basophil% 0.3 % (0-1); Eosinophil# 0.01 X10^3/uL; Eosinophils% 0.1 % (0-5); Hematocrit 34.5 % (40-54); Hemoglobin 10.5 g/dL (13.0-16.5); Lymphocyte # 1.26 X10^3/ul (0.83-4.51); Lymphocyte % 13.1 % (19-41); Mean Corp Hgb Conc 30.4 g/dL (32-36); Mean Corpuscular Hgb 25.3 pg (27.0-32.0); Mean Corpuscular Volume 83.1 fL (80-94); Mean Platelet Vol. 11.4 fl (6.2-12.0); Monocyte# 1.05 X10^3/uL; Monocyte% 10.9 % (0-10); NRBC Flagged by Analyzer 0 % (0-5); Neutrophil # 7.24 X10^3/uL (2.7-7.7); Neutrophil % 75.1 % (47-70); Platelet Count 435 K/mm3 (150-450); RBC Distribution Width CV 15.7 % (11.6-14.6); RBC Distribution Width SD 47.5 fl (35.1-43.9); Red Blood Count 4.15 M/mm3 (4.6-6.2); White Blood Count 9.6 K/mm3 (4.4-11.0)
[2023-08-09 04:13] LABS: Anion Gap 10 (5-15); BUN 93 mg/dL (7-18); BUN/Creat Ratio 35.6 RATIO (10-20); Calcium,Total 9.4 mg/dL (8.5-10.1); Chloride 88 mmol/L (98-107); Creatinine, Serum 2.61 mg/dL (0.70-1.30); EST Glomerular Filtration Rate 26 mL/min (>60); Est Glom Filt Rate - Afr Amer 31 mL/min (>60); Estimated Creatinine Clearance 26.61 ml/min; Glucose 157 mg/dL (74-106); Magnesium 2.7 mg/dL (1.6-2.6); Phosphorus 5.8 mg/dL (2.5-4.9); Potassium 3.6 mmol/L (3.5-5.1); Sodium Level 134 mmol/L (136-145)
[2023-08-09] MEDS: Piperacil/Tazobactam 3.375 GM in 0.9% Normal Saline (50mL MB+) 50 ML IV ×3 (04:53→20:13)
--- NOTE | 2023-08-09 06:16 | PCM.PN.INT ---
Assessment & Plan Assessment/Plan (1) Non-STEMI (non-ST elevated myocardial infarction): PLAN: Plan RECOMMENDATIONS: 1. Continue to wean FiO2 to maintain oxygen saturations at or above 90%. 2. Continue systemic anticoagulation. 3. Ongoing attempts at volume optimization with diuretics, per nephrology. 4. Continue empiric antibiotics. 5. Start scheduled BuSpar for anxiety. IMPRESSIONS: 1. Acute hypoxemic respiratory failure Clinical suspicion for underlying decompensated heart failure with preserved ejection fraction in the setting of an NSTEMI, along with possible PE and pneumonia as contributing etiologies. Unfortunately, CTA chest is not able to be obtained due to underlying renal insufficiency. However, lower extremity Doppler study was positive for DVT. Therefore, recommend continuing systemic anticoagulation. The patient will be continued on empiric broad-spectrum antimicrobials as well along with ongoing volume optimization with Lasix, as tolerated by hemodynamics and renal function. The patient did undergo cardiac catheterization, for which medical therapy was recommended. For now, supplemental oxygen will be continued to maintain oxygen saturations at or above 90%. 2. NSTEMI/acute decompensated heart failure with preserved ejection fraction Management per cardiology. 3. Acute on chronic kidney disease Nephrology is following. Continue ongoing attempts at volume optimization as tolerated by hemodynamics and renal function. This note was generated with [employer] dictation software. It may contain incorrect words, spelling, and punctuation that were not noted in checking the note before signing. Subjective Subjective The patient was seen and examined at the bedside this morning. Events from the last 24 hours have been reviewed. The patient is currently afebrile, hemodynamically stable and maintaining appropriate oxygen saturations on AVAPS with an FiO2 requirement of 65%. The patient did undergo cardiac catheterization yesterday. His Lasix infusion rate was also increased. In light of his tenuous respiratory status, the patient's antimicrobials were broadened as well. The patient is currently documented to be overall net -1.9 L for the hospitalization. This morning, the patient has a normal white blood cell count. Chemistry profile was notable for a sodium of 134, chloride of 88, bicarbonate of 36 and creatinine of 2.61. Despite the patient's oxygen requirement, he reported that he feels better than yesterday. Objective Data Objective Data The patient's most recent lab work, culture data and imaging studies have all been personally reviewed. Surface echocardiogram demonstrated normal LV size and function with an ejection fraction of 55%. Doppler study was positive for right-sided DVT. Infectious workup has been unrevealing to date. Vital Signs: Vital Signs Temp Pulse Resp BP Pulse Ox O2 Del Method O2 Flow Rate 98.3 F 94 31 H 126/87 H 95 Bi-pap 60 08/09/23 04:00 08/09/23 06:00 08/09/23 06:00 08/09/23 06:00 08/09/23 06:00 08/09/23 06:00 08/08/23 19:00 FiO2 65 08/09/23 06:00 Oxygen Flow Rate (L/min) 60 Oxygen Delivery Method Bi-pap Weight: 188 lb 7.924 oz Body Mass Index (BMI) 30.4 Intake & Output: Intake and Output for Last 24 Hours 08/07/23 08/08/23 08/09/23 23:59 23:59 23:59 Intake Total 1565.27 / 1815.27 2317.23 / 2317.23 170 / 170 Output Total 2300 / 2550 2175 / 2575 750 / 750 Balance -734.73 / -734.73 142.23 / -257.77 -580 / -580 Lab / Micro Data Attestation: I reviewed the patient's lab results. 08/09/23 03:30 08/09/23 03:30 Labs: Laboratory Results - last 24 hr 08/08/23 11:05: APTT 85.2 H, MRSA (PCR) Negative 08/09/23 03:30: WBC 9.6, RBC 4.15 L, Hgb 10.5 L, Hct 34.5 L, MCV 83.1, MCH 25.3 L, MCHC 30.4 L, RDW Std Deviation 47.5 H, RDW Coeff of Raghavendra 15.7 H, Plt Count 435, MPV 11.4, Immature Gran % (Auto) 0.500, Neut % (Auto) 75.1 H, Lymph % (Auto) 13.1 L, [place] % (Auto) 10.9 H, Eos % (Auto) 0.1, Baso % (Auto) 0.3, Absolute Neuts (auto) 7.2, Absolute Lymphs (auto) 1.26, Nucleated RBC % 0, Sodium 134 L, Potassium 3.6, Chloride 88 L, Carbon Dioxide 36.0 H, Anion Gap 10, BUN 93 H, Creatinine 2.61 H, Estim Creat Clear Calc 26.61, Est GFR (MDRD) Af Amer 31 L, Est GFR (MDRD) Non-Af 26 L, BUN/Creatinine Ratio 35.6 H, Glucose 157 H, Calcium 9.4, Phosphorus 5.8 H, Magnesium 2.7 H Micro: Microbiology 08/04/23 00:00 Sputum, Expectorated/Coughed Gram Stain - Final 08/04/23 00:00 Sputum, Expectorated/Coughed Respiratory Culture - Final 08/03/23 21:57 Urine, Random Legionella Antigen - Final 08/03/23 21:57 Urine, Random Streptococcus pneumoniae Antigen (M - Final 08/03/23 18:30 Mucosa - Nose SARS-CoV-2, Influenza & RSV (PCR) - Final Radiography Diagnostic Testing: Radiology Impression Chest X-Ray 08/08/23 08:40 IMPRESSION: Stable bilateral airspace disease. Electronically Signed: Jack Garcia MD at 9:33 EDT , Physical Exam Const alert and oriented x3 Constitutional Narrative: BiPAP mask in place. Appears less anxious than previous. General Appearance: cooperative HEENT normocephalic and head/scalp atraumatic Eyes PERRL, EOMs intact bilaterally and conjunctivae normal Neck supple General: trachea midline Chest inspection of chest normal Resp Effort and Inspection: tachypneic Auscultation: diminished lung sounds; Negative for rales, rhonchi or wheezes Cardio regular rate, regular rhythm, S1 normal heart sound and S2 normal heart sound GI normal to inspection, nondistended, normoactive bowel sounds Extremity no clubbing, cyanosis or edema Skin no rashes or lesions noted Neuro CN's II-XII intact bilaterally, moves all extremities and no focal motor deficits Psych Mood & Affect: anxious Charges/Coding Visit Charges Inpatient E&M: 56652 Subs Hosp L3
--- NOTE | 2023-08-09 07:09 | PN.HOSP_ITS ---
Reason for Visit Reason for Visit: Diagnoses Non-ST elevation (NSTEMI) myocardial infarction (08/03/23) Pneumonia, unspecified organism (08/03/23) Acute kidney failure, unspecified (08/03/23) Chronic kidney disease, stage 3b (08/03/23) Subjective Subjective Patient seen remains on noninvasive ventilation on BiPAP. Given his significant oxygen requirement decision was made for patient to undergo CTA of the chest to evaluate possible clot burden. Objective Data Objective Data Vital Signs: Vital Signs Temp Pulse Resp BP Pulse Ox O2 Del Method O2 Flow Rate 98.3 F 96 31 H 130/87 H 95 Bi-pap 60 08/09/23 04:00 08/09/23 07:00 08/09/23 07:00 08/09/23 07:00 08/09/23 07:00 08/09/23 07:00 08/08/23 19:00 FiO2 65 08/09/23 07:00 Oxygen Flow Rate (L/min) 60 Oxygen Delivery Method Bi-pap Weight: 85.5 kg Body Mass Index (BMI) 30.4 Intake & Output: Intake and Output for Last 24 Hours 08/07/23 08/08/23 08/09/23 23:59 23:59 23:59 Intake Total 1565.27 / 1815.27 2317.23 / 2317.23 170 / 170 Output Total 2300 / 2550 2175 / 2575 750 / 750 Balance -734.73 / -734.73 142.23 / -257.77 -580 / -580 Lab / Micro Data 08/09/23 03:30 08/09/23 03:30 Labs: Laboratory Results - last 24 hr 08/08/23 11:05: APTT 85.2 H, MRSA (PCR) Negative 08/09/23 03:30: WBC 9.6, RBC 4.15 L, Hgb 10.5 L, Hct 34.5 L, MCV 83.1, MCH 25.3 L, MCHC 30.4 L, RDW Std Deviation 47.5 H, RDW Coeff of Raghavendra 15.7 H, Plt Count 435, MPV 11.4, Immature Gran % (Auto) 0.500, Neut % (Auto) 75.1 H, Lymph % (Auto) 13.1 L, [place] % (Auto) 10.9 H, Eos % (Auto) 0.1, Baso % (Auto) 0.3, Absolute Neuts (auto) 7.2, Absolute Lymphs (auto) 1.26, Nucleated RBC % 0, Sodium 134 L, Potassium 3.6, Chloride 88 L, Carbon Dioxide 36.0 H, Anion Gap 10, BUN 93 H, Creatinine 2.61 H, Estim Creat Clear Calc 26.61, Est GFR (MDRD) Af Amer 31 L, Est GFR (MDRD) Non-Af 26 L, BUN/Creatinine Ratio 35.6 H, Glucose 157 H, Calcium 9.4, Phosphorus 5.8 H, Magnesium 2.7 H Micro: Microbiology 08/04/23 00:00 Sputum, Expectorated/Coughed Gram Stain - Final 08/04/23 00:00 Sputum, Expectorated/Coughed Respiratory Culture - Final 08/03/23 21:57 Urine, Random Legionella Antigen - Final 08/03/23 21:57 Urine, Random Streptococcus pneumoniae Antigen (M - Final 08/03/23 18:30 Mucosa - Nose SARS-CoV-2, Influenza & RSV (PCR) - Final Radiography Diagnostic Testing: Radiology Impression Chest X-Ray 08/08/23 08:40 IMPRESSION: Stable bilateral airspace disease. Electronically Signed: Jack Garcia MD at 9:33 EDT , Physical Exam Narrative GENERAL: cooperative but remains dyspneic at rest HEENT: Atraumatic; normocephalic EYES; Anicteric, Normal Conjunctiva NECK; supple, normal thyroid, RESPIRATORY: Diminished to auscultation CARDIOVASCULAR: Regular S1 S2, GI: soft, normoactive bowel sounds, : No Renal angle tenderness; EXTREMITIES: No edema, no clubbing, MUSCULOSKELETAL: no muscle wasting NEURO: Awake; no lateralizing signs. SKIN: No Rash PSYCH; Flat affect Assessment & Plan Assessment/Plan (1) Non-STEMI (non-ST elevated myocardial infarction): PLAN: Plan Patient is a 72-year-old gentleman admitted with shortness of breath was found to have elevated troponin consistent with acute non-STEMI treatment initiated per protocol admitted to the intensive care unit. Patient was found to be in acute respiratory failure resulting in the use of BiPAP 1. Acute non-STEMI ? Patient admitted to the intensive care unit managed per protocol with heparin, aspirin added statin therapy and beta-blockers with consultation placed to cardiology. Plan is for patient to undergo left heart catheterization ? 08/09/2023 cardiac catheterization demonstrated Normal left main coronary artery, First diagonal vessel with 90% long proximal stenosis, Left anterior descending artery with mild disease ,Nondominant left circumflex artery with first obtuse marginal branch with 70% stenosis, Totally occluded right coronary artery with [id number] collaterals ,Low normal left ventricular ejection fraction noted on echocardiogram with dilated right ventricle 2. Acute hypoxic respiratory failure ? Multifactorial including acute congestive heart failure, suspected PE as well as pneumonia patient placed on noninvasive ventilation Airvo. Consult placed to steel heater notes and recommendations reviewed ? 08/09/2023.Patient seen remains on noninvasive ventilation on BiPAP. Given his significant oxygen requirement decision was made for patient to undergo CTA of the chest to evaluate possible clot burden. 3. Acute VTE (RLE DVT and suspected PE) -Patient underwent VQ scan which was nonconclusive lower extremity duplex demonstrated acute right lower extremity DVT. Patient is on heparin The estimated ejection fraction is 55 %. Unable to assess diastolic dysfunction. Moderately dilated right ventricle. Trivial mitral valve insufficiency. 4. Acute congestive heart failure with preserved ejection fraction -Echo from 08/04/2023 demonstrated EF of 55%. Patient management strict input and output, fluid restriction as well as diuretic therapy with furosemide 5. Hypokalemia ? Corrected per protocol repeat labs ordered for subsequent management 6. Hypertension - Blood pressure controlled, patient is on amlodipine continue also on chlorthalidone held 7. Chronic kidney disease stage IIIb ? Monitoring kidney function 8. Presence of solitary kidney ? 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
--- NOTE | 2023-08-09 08:27 | CT_ITS ---
STUDY: CTA CHEST REASON FOR EXAM: Male, 72 years old. Pulmonary embolism -- aware of creatine, RADIATION DOSAGE (If Supplied By Facility): CTDIvol = ( 18.05 ) mGy, DLP = ( 503.08 ) mGycm TECHNIQUE: The examination was performed with the intravenous administration of IV 100mL Isovue-370. Post-processing of the angiographic images was performed, with multiplanar reformation and 3D reconstruction. Individualized dose optimization techniques were used for this CT. COMPARISON: None. FINDINGS: Tiny filling defects are seen in small branches of the right lower lobe pulmonary artery. No big thrombus is seen. Normal thoracic aorta and visualized great vessels. There is no demonstrated aortic dissection. There are calcifications of the coronary arteries. Normal mediastinum. Normal hilar regions. Normal visualized trachea and bronchi. Patchy bilateral pulmonary infiltrates involving both upper and lower lobes. Small bilateral pleural effusions slightly greater on the right side. Normal chest wall structures. There are degenerative changes of thoracic spine. Normal visualized upper abdomen. CT/CTA Chest W/WO Contrast IMPRESSION: There is evidence of a intraluminal filling defects in small branches in the right lower lobe suggestive of small pulmonary emboli. No big thrombus is seen. Bilateral pleural effusions right greater than left with diffuse bilateral pulmonary infiltrates involving both upper and lower lobes. Electronically Signed: Jack Garcia MD at 10:16 EDT ,
[2023-08-09] MEDS: busPIRone 5 MG Tablet 10 MG PO ×3 (08:52→20:13)
[2023-08-09] MEDS: Aspirin E.C. 81 MG Tablet PO (08:53)
[2023-08-09] MEDS: amLODIPine 5 MG Tablet PO (08:53)
[2023-08-09] MEDS: Potassium Chloride Oral Tablet 20 MEQ 40 MEQ PO ×2 (08:53→17:33)
[2023-08-09] MEDS: guaiFENesin 600 MG Tablet PO ×2 (08:53→20:13)
[2023-08-09] MEDS: APIXABAN 5 MG TABLET 10 MG PO ×2 (08:53→20:13)
[2023-08-09] MEDS: Metoprolol Tartrate 25 MG Tablet 12.5 MG PO (08:54)
[2023-08-09] MEDS: LORazepam 2 MG/ML Syringe 0.5 MG IV (09:28)
[2023-08-09] MEDS: 0.9% Saline Lock 10 ML Syringe IV ×2 (09:30→20:13)
--- NOTE | 2023-08-09 10:05 | CASEMGMT ---
SW spoke w/pt, offered support as pt showing signs of anxiousness. Pt states is going for a test today, that could cause him to need dialysis or he could , or nothing will happen. Support given to pt. SW will continue to follow, remains available for support. SHELTON [place]
--- NOTE | 2023-08-09 10:31 | PCM.PN.REN ---
Documented by User: NORMA Lorenzana 08/09/23 10:45 Subjective Subjective Resting in bed. On high flow oxygen. States breathing is worse. Objective Data Objective Data Vital Signs: Vital Signs Temp Pulse Resp BP Pulse Ox O2 Del Method O2 Flow Rate 98.3 F 104 H 31 H 123/88 H 95 Bi-pap 60 08/09/23 04:00 08/09/23 08:54 08/09/23 07:00 08/09/23 08:54 08/09/23 07:00 08/09/23 07:00 08/08/23 19:00 FiO2 65 08/09/23 07:00 Oxygen Flow Rate (L/min) 60 Oxygen Delivery Method Bi-pap Weight: 85.5 kg Body Mass Index (BMI) 30.4 Intake & Output: Intake and Output for Last 24 Hours 08/07/23 08/08/23 08/09/23 23:59 23:59 23:59 Intake Total 1565.27 / 1815.27 2317.23 / 2317.23 220 / 220 Output Total 2300 / 2550 2175 / 2575 750 / 750 Balance -734.73 / -734.73 142.23 / -257.77 -530 / -530 Lab / Micro Data 08/09/23 03:30 08/09/23 03:30 Labs: Laboratory Results - last 24 hr 08/08/23 11:05: APTT 85.2 H, MRSA (PCR) Negative 08/09/23 03:30: WBC 9.6, RBC 4.15 L, Hgb 10.5 L, Hct 34.5 L, MCV 83.1, MCH 25.3 L, MCHC 30.4 L, RDW Std Deviation 47.5 H, RDW Coeff of Raghavendra 15.7 H, Plt Count 435, MPV 11.4, Immature Gran % (Auto) 0.500, Neut % (Auto) 75.1 H, Lymph % (Auto) 13.1 L, [place] % (Auto) 10.9 H, Eos % (Auto) 0.1, Baso % (Auto) 0.3, Absolute Neuts (auto) 7.2, Absolute Lymphs (auto) 1.26, Nucleated RBC % 0, Sodium 134 L, Potassium 3.6, Chloride 88 L, Carbon Dioxide 36.0 H, Anion Gap 10, BUN 93 H, Creatinine 2.61 H, Estim Creat Clear Calc 26.61, Est GFR (MDRD) Af Amer 31 L, Est GFR (MDRD) Non-Af 26 L, BUN/Creatinine Ratio 35.6 H, Glucose 157 H, Calcium 9.4, Phosphorus 5.8 H, Magnesium 2.7 H, B-Natriuretic Peptide 2481.0 H Micro: Microbiology 08/04/23 00:00 Sputum, Expectorated/Coughed Gram Stain - Final 08/04/23 00:00 Sputum, Expectorated/Coughed Respiratory Culture - Final 08/03/23 21:57 Urine, Random Legionella Antigen - Final 08/03/23 21:57 Urine, Random Streptococcus pneumoniae Antigen (M - Final 08/03/23 18:30 Mucosa - Nose SARS-CoV-2, Influenza & RSV (PCR) - Final Radiography Diagnostic Testing: Radiology Impression Chest CTA 08/09/23 08:27 IMPRESSION: There is evidence of a intraluminal filling defects in small branches in the right lower lobe suggestive of small pulmonary emboli. No big thrombus is seen. Bilateral pleural effusions right greater than left with diffuse bilateral pulmonary infiltrates involving both upper and lower lobes. Electronically Signed: Jack Garcia MD at 10:16 EDT , Physical Exam Narrative Alert awake oriented x 3 no obvious distress s1s2 no murmurs lungs clear anteriorly. No wheezing, rhonchi or rales noted abdomen soft, nontender no edema Assessment & Plan Assessment/Plan (1) TRENA (acute kidney injury): PLAN: - TRENA superimposed on CKD; baseline creatinine around 2.0. Acute renal failure is likely related to cardiorenal syndrome. SCr 2 on admission and for past few days SCr ranging around 2.4-2.6mg/dL. Today SCr 2.6. Patient has good urine output. Potassium and acid-base acceptable, no acute indication for TANKROOM TENDER at this time. - Acute hypoxemic respiratory failure; requiring high flow O2. Last chest x-ray looked worse than previous. Has been on Lasix drip, increased to 20mg/hr on 08/07. Average urine output about 2 to 2.5 L, he is net negative around 1.8 L currently. Symptomatically also appears worse. No peripheral edema. CT angiogram today: No big thrombus seen, small pulmonary emboli, bilateral pleural effusions right greater than left with diffuse bilateral pulmonary infiltrates involving upper and lower lobes. Will start metolazone 5 mg daily and also check serologies which have been ordered. - NSTEMI, acute decompensated heart failure with preserved EF; cardiac cath 08/07 Recommendations medical therapy for coronary artery disease - Hypokalemia. Improved with potassium replacement. Potassium 3.6 today. Continue monitoring electrolytes. Currently on potassium chloride 40 mEq twice daily (2) Chronic kidney disease, stage 3b: Documented by User: Dr. Mai Terry MD 08/09/23 13:29 Objective Data Lab / Micro Data 08/09/23 03:30 08/09/23 03:30 Assessment & Plan Assessment/Plan (1) TRENA (acute kidney injury): PLAN: - TRENA superimposed on CKD; baseline creatinine around 2.0. Acute renal failure is likely related to cardiorenal syndrome. SCr 2 on admission and for past few days SCr ranging around 2.4-2.6mg/dL. Today SCr 2.6. Patient has good urine output. Potassium and acid-base acceptable, no acute indication for TANKROOM TENDER at this time. - Acute hypoxemic respiratory failure; requiring high flow O2. Last chest x-ray looked worse than previous. Has been on Lasix drip, increased to 20mg/hr on 08/07. Average urine output about 2 to 2.5 L, he is net negative around 1.8 L currently. Symptomatically also appears worse. No peripheral edema. CT angiogram today: No big thrombus seen, small pulmonary emboli, bilateral pleural effusions right greater than left with diffuse bilateral pulmonary infiltrates involving upper and lower lobes. Will start metolazone 5 mg daily and also check serologies which have been ordered. - NSTEMI, acute decompensated heart failure with preserved EF; cardiac cath 08/07 Recommendations medical therapy for coronary artery disease - Hypokalemia. Improved with potassium replacement. Potassium 3.6 today. Continue monitoring electrolytes. Currently on potassium chloride 40 mEq twice daily Addendum Urine output about 2.3 L. multiple discussions with ICU service. Not entirely sure if this is all fluid. CTA ordered to rule out massive PE. CTA showed small PE no saddle embolus etc. lungs however show edema but also extensive interstitial disease and prominent bronchi, effusions and edema. continue lasix and metolazone for today. will send serologies to rule out vasculitis. (2) Chronic kidney disease, stage 3b:
--- NOTE | 2023-08-09 14:37 | PN.CARD_ITS ---
Subjective Subjective Patient states that shortness of breath is better but currently on BiPAP. Objective Data Vital Signs: Vital Signs Temp Pulse Resp BP Pulse Ox O2 Del Method O2 Flow Rate 98.1 F 95 21 H 118/82 H 99 Bi-pap 60 08/09/23 12:00 08/09/23 12:00 08/09/23 12:00 08/09/23 12:00 08/09/23 12:00 08/09/23 12:00 08/08/23 19:00 FiO2 65 08/09/23 12:00 Oxygen Flow Rate (L/min) 60 Oxygen Delivery Method Bi-pap Weight: 188 lb 7.924 oz Body Mass Index (BMI) 30.4 Intake & Output: Intake and Output for Last 24 Hours 08/07/23 08/08/23 08/09/23 23:59 23:59 23:59 Intake Total 1565.27 / 1815.27 2317.23 / 2317.23 420 / 420 Output Total 2300 / 2550 2175 / 2575 1150 / 1150 Balance -734.73 / -734.73 142.23 / -257.77 -730 / -730 Lab / Micro Data 08/09/23 03:30 08/09/23 03:30 Labs: Laboratory Results - last 24 hr 08/09/23 03:30: WBC 9.6, RBC 4.15 L, Hgb 10.5 L, Hct 34.5 L, MCV 83.1, MCH 25.3 L, MCHC 30.4 L, RDW Std Deviation 47.5 H, RDW Coeff of Raghavendra 15.7 H, Plt Count 435, MPV 11.4, Immature Gran % (Auto) 0.500, Neut % (Auto) 75.1 H, Lymph % (Auto) 13.1 L, [place] % (Auto) 10.9 H, Eos % (Auto) 0.1, Baso % (Auto) 0.3, Absolute Neuts (auto) 7.2, Absolute Lymphs (auto) 1.26, Nucleated RBC % 0, S odium 134 L, Potassium 3.6, Chloride 88 L, Carbon Dioxide 36.0 H, Anion Gap 10, BUN 93 H, Creatinine 2.61 H, Estim Creat Clear Calc 26.61, Est GFR (MDRD) Af Amer 31 L, Est GFR (MDRD) Non-Af 26 L, BUN/Creatinine Ratio 35.6 H, Glucose 157 H, Calcium 9.4, Phosphorus 5.8 H, Magnesium 2.7 H, B-Natriuretic Peptide 2481.0 H Cardiology Labs/Tests 08/09/23 03:30: WBC 9.6, RBC 4.15 L, Hgb 10.5 L, Hct 34.5 L, MCV 83.1, MCH 25.3 L, MCHC 30.4 L, Plt Count 435, MPV 11.4, Immature Gran % (Auto) 0.500, Neut % (Auto) 75.1 H, Lymph % (Auto) 13.1 L, [place] % (Auto) 10.9 H, Eos % (Auto) 0.1, Baso % (Auto) 0.3, Absolute Neuts (auto) 7.2, Nucleated RBC % 0, Sodium 134 L, Potassium 3.6, Chloride 88 L, Carbon Dioxide 36.0 H, Anion Gap 10, BUN 93 H, Creatinine 2.61 H, Est GFR (MDRD) Af Amer 31 L, Est GFR (MDRD) Non-Af 26 L, BUN/Creatinine Ratio 35.6 H, Glucose 157 H, Calcium 9.4, Phosphorus 5.8 H, Magnesium 2.7 H, B-Natriuretic Peptide 2481.0 H Rhythm: EKG: ECHO: Stress Test: Cardiac Cath: PCI: CT Surgery: Holter monitor: EPS: PPM: CXR: Chest CT Scan: Radiography Diagnostic Testing: Radiology Impression Chest CTA 08/09/23 08:27 IMPRESSION: There is evidence of a intraluminal filling defects in small branches in the right lower lobe suggestive of small pulmonary emboli. No big thrombus is seen. Bilateral pleural effusions right greater than left with diffuse bilateral pulmonary infiltrates involving both upper and lower lobes. Electronically Signed: Jack Garcia MD at 10:16 EDT , Physical Exam Const alert HEENT normocephalic Eyes no scleral icterus Assessment & Plan Assessment/Plan (1) Non-STEMI (non-ST elevated myocardial infarction): PLAN: Patient's shortness of breath and overall presentation appears to be out of proportion to his underlying CAD. CTA report reviewed. Her shortness of breath may be multifactorial due to CAD, non-STEMI, CHF with preserved EF, PE +/- other pulmonary issues. Agree with starting the patient on Eliquis and keeping him on IV Lasix at this time. Medical therapy for CAD at this time. If creatinine is stable or if patient ends up on dialysis anyway then we will consi jim PCI of the diagonal if patient continues to remain symptomatic. However it is unlikely to be the sole cause for his symptoms. Charges/Coding Visit Charges Inpatient E&M: 66727 Subs Hosp L1
[2023-08-09] MEDS: metOLazone 5 MG Tablet PO (14:40)
[2023-08-09] MEDS: Furosemide 500 MG in Empty Viaflex 50 mL 1 EACH CONT INF (14:40)
[2023-08-09 15:11] LABS: Pathologist Review Reviewed
[2023-08-09 15:13] LABS: Pathologist Review Reviewed
--- NOTE | 2023-08-09 15:50 | CHAPLAIN ---
Type of Pastoral Visit _x__ Initial Visit ___ Follow-up Visit ___ On-call Visit ___ General Patient Visit ___ Spiritual Assessment ___ Family Conference ___ Bereavement ___ Rapid Response ___ Code Blue ___ Other (describe below) Pastoral Care Referral From _x__ Patient ___ Family ___ Nurse ___ Physician ___ Pull Tab Dealer ___ Software Engineering Specialist ___ Other (describe below) Sacrament/Intervention _x__ Active listening ___ Anointing ___ Methodist ___ Bereavement ___ Communion ___ [place] exploration ___ ___ Life review _x__ Prayer ___ Reconciliation ___ Sacrament of Sick _x__ Supportive presence ___ Wedding ___ Other (describe below) Pastoral Comments patient was briefly put on nasal 02 after bipap and was able to talk; pt admitted anxiety because he had a near episode on and because I don't know what is going to happen; listened also as pt states that I have turned it over; kept the visit short as pt continued to have difficulty with breathing; offered support, remaining calm and explained availability of self and all staff to be with him in this time and do all that we can for you; offer of prayer was welcomed and given; RN came into room to put bi-pap back on pt
[2023-08-09] MEDS: Vancomycin HCl 750 MG in 0.9% Normal Saline (250mL Bag) 250 ML 250 MG IV (17:33)
[2023-08-09] MEDS: Atorvastatin Calcium 40 MG Tablet PO (20:13)
[2023-08-09] MEDS: LORazepam 0.5 MG Tablet PO (20:17)
[2023-08-10] VITALS (37 sets, daily range): BP systolic 104–133; BP diastolic 62–95; PULSE 90–112; RESP 12–41; TEMP 36.8; O2SAT 82–97; BMI 29.8
[2023-08-10] MEDS: 0.9% Saline Lock 10 ML Syringe IV ×2 (03:05→23:43)
[2023-08-10] MEDS: LORazepam 2 MG/ML Syringe 0.5 MG IV (03:08)
[2023-08-10 03:18] LABS: Absolute Lymphocyte Count 1.32 X10^3/uL (0.83-4.51); Absolute Neutrophil Count 11.3 X10^3/uL (2.0-7.7); Basophil# 0.04 X10^3/uL; Basophil% 0.3 % (0-1); Eosinophil# 0.02 X10^3/uL; Eosinophils% 0.1 % (0-5); Hematocrit 35.9 % (40-54); Hemoglobin 10.8 g/dL (13.0-16.5); Lymphocyte # 1.32 X10^3/ul (0.83-4.51); Lymphocyte % 9.2 % (19-41); Mean Corp Hgb Conc 30.1 g/dL (32-36); Mean Corpuscular Hgb 25.4 pg (27.0-32.0); Mean Corpuscular Volume 84.5 fL (80-94); Mean Platelet Vol. 11.7 fl (6.2-12.0); Monocyte% 11.1 % (0-10); NRBC Flagged by Analyzer 0 % (0-5); Neutrophil # 11.32 X10^3/uL (2.7-7.7); Neutrophil % 78.7 % (47-70); POSITIVE DIFFERENTIAL YES; Platelet Count 522 K/mm3 (150-450); RBC Distribution Width CV 15.7 % (11.6-14.6); RBC Distribution Width SD 47.4 fl (35.1-43.9); Red Blood Count 4.25 M/mm3 (4.6-6.2); White Blood Count 14.4 K/mm3 (4.4-11.0)
[2023-08-10 03:30] LABS: Differential Indicated SCAN CRITERIA MET
[2023-08-10 03:32] LABS: Anion Gap 11 (5-15); BUN 99 mg/dL (7-18); BUN/Creat Ratio 32.8 RATIO (10-20); Calcium,Total 9.7 mg/dL (8.5-10.1); Chloride 85 mmol/L (98-107); Creatinine, Serum 3.02 mg/dL (0.70-1.30); EST Glomerular Filtration Rate 22 mL/min (>60); Est Glom Filt Rate - Afr Amer 26 mL/min (>60); Glucose 148 mg/dL (74-106); Potassium 3.6 mmol/L (3.5-5.1); Sodium Level 135 mmol/L (136-145)
[2023-08-10] MEDS: busPIRone 5 MG Tablet 10 MG PO ×2 (06:30→20:20)
[2023-08-10] MEDS: Piperacil/Tazobactam 3.375 GM in 0.9% Normal Saline (50mL MB+) 50 ML IV ×3 (06:30→20:20)
--- NOTE | 2023-08-10 07:20 | PN.HOSP_ITS ---
Reason for Visit Reason for Visit: Diagnoses Non-ST elevation (NSTEMI) myocardial infarction (08/03/23) Pneumonia, unspecified organism (08/03/23) Acute kidney failure, unspecified (08/03/23) Chronic kidney disease, stage 3b (08/03/23) Subjective Subjective CT of the chest did confirm presence of pulmonary embolism. Also did show bilateral pulmonary infiltrate as well as bilateral pleural effusion right greater than left Objective Data Objective Data Vital Signs: Vital Signs Temp Pulse Resp BP Pulse Ox O2 Del Method O2 Flow Rate 98.3 F 97 31 H 116/73 93 Bi-pap 60 08/10/23 04:00 08/10/23 07:16 08/10/23 07:16 08/10/23 07:00 08/10/23 07:16 08/10/23 07:16 08/08/23 19:00 FiO2 70 08/10/23 07:16 Oxygen Flow Rate (L/min) 60 Oxygen Delivery Method Bi-pap Weight: 83.9 kg Body Mass Index (BMI) 29.8 Intake & Output: Intake and Output for Last 24 Hours 08/08/23 08/09/23 08/10/23 23:59 23:59 23:59 Intake Total 2317.23 / 2317.23 885 / 985 150 / 150 Output Total 2175 / 2575 1650 / 2250 900 / 900 Balance 142.23 / -257.77 -765 / -1265 -750 / -750 Lab / Micro Data 08/10/23 03:10 08/10/23 03:10 Labs: Laboratory Results - last 24 hr 08/06/23 07:45: Diff Path Review Reviewed 08/08/23 02:35: Diff Path Review Reviewed 08/09/23 03:30: B-Natriuretic Peptide 2481.0 H 08/10/23 03:10: WBC 14.4 H, RBC 4.25 L, Hgb 10.8 L, Hct 35.9 L, MCV 84.5, MCH 25.4 L, MCHC 30.1 L, RDW Std Deviation 47.4 H, RDW Coeff of Raghavendra 15.7 H, Plt Count 522 H, MPV 11.7, Immature Gran % (Auto) 0.600, Neut % (Auto) 78.7 H, Lymph % (Auto) 9.2 L, Whitman % (Auto) 11.1 H, Eos % (Auto) 0.1, Baso % (Auto) 0.3, Absolute Neuts (auto) 11.3 H, Absolute Lymphs (auto) 1.32, Nucleated RBC % 0, Diff Path Review August, Sodium 135 L, Potassium 3.6, Chloride 85 L, Carbon Dioxide 39.0 H, Anion Gap 11, BUN 99 H, Creatinine 3.02 H, Estim Creat Clear Calc 23.00, Est GFR (MDRD) Af Amer 26 L, Est GFR (MDRD) Non-Af 22 L, BUN/Creatinine Ratio 32.8 H, Glucose 148 H, Calcium 9.7 Micro: Microbiology 08/04/23 00:00 Sputum, Expectorated/Coughed Gram Stain - Final 08/04/23 00:00 Sputum, Expectorated/Coughed Respiratory Culture - Final 08/03/23 21:57 Urine, Random Legionella Antigen - Final 08/03/23 21:57 Urine, Random Streptococcus pneumoniae Antigen (M - Final 08/03/23 18:30 Mucosa - Nose SARS-CoV-2, Influenza & RSV (PCR) - Final Radiography Diagnostic Testing: Radiology Impression Chest CTA 08/09/23 08:27 IMPRESSION: There is evidence of a intraluminal filling defects in small branches in the right lower lobe suggestive of small pulmonary emboli. No big thrombus is seen. Bilateral pleural effusions right greater than left with diffuse bilateral pulmonary infiltrates involving both upper and lower lobes. Electronically Signed: Jack Garcia MD at 10:16 EDT , Physical Exam Narrative GENERAL: Patient remains on BiPAP, HEENT: Atraumatic; normocephalic EYES; Anicteric, Normal Conjunctiva NECK; supple, normal thyroid, RESPIRATORY: Diminished to auscultation CARDIOVASCULAR: Regular S1 S2, GI: soft, normoactive bowel sounds, : No Renal angle tenderness; EXTREMITIES: No edema, no clubbing, MUSCULOSKELETAL: no muscle wasting NEURO: Awake; no lateralizing signs. SKIN: No Rash PSYCH; Flat affect Assessment & Plan Assessment/Plan (1) Non-STEMI (non-ST elevated myocardial infarction): PLAN: Plan Patient is a 72-year-old gentleman admitted with shortness of breath was found to have elevated troponin consistent with acute non-STEMI treatment initiated per protocol admitted to the intensive care unit. Patient was found to be in acute respiratory failure resulting in the use of BiPAP 1. Acute non-STEMI ? Patient admitted to the intensive care unit managed per protocol with heparin, aspirin added statin therapy and beta-blockers with consultation placed to cardiology. Plan is for patient to undergo left heart catheterization ? 08/09/2023 cardiac catheterization demonstrated Normal left main coronary artery, First diagonal vessel with 90% long proximal stenosis, Left anterior descending artery with mild disease ,Nondominant left circumflex artery with first obtuse marginal branch with 70% stenosis, Totally occluded right coronary artery with [id number] collaterals ,Low normal left ventricular ejection fraction noted on echocardiogram with dilated right ventricle 2. Acute hypoxic respiratory failure ? Multifactorial including acute congestive heart failure, suspected PE as well as pneumonia patient placed on noninvasive ventilation Airvo. Consult placed to talking books library clerk notes and recommendations reviewed ? 08/09/2023.Patient seen remains on noninvasive ventilation on BiPAP. Given his significant oxygen requirement decision was made for patient to undergo CTA of the chest to evaluate possible clot burden. ? 08/10/2023; CTA of the chest demonstrated evidence of pulmonary embolism, bilateral pulmonary infiltrates as well as bilateral pleural effusion right greater than left. 3. Acute VTE (RLE DVT and PE) -Patient underwent VQ scan which was nonconclusive lower extremity duplex demonstrated acute right lower extremity DVT. Patient is on heparin The estimated ejection fraction is 55 %. Unable to assess diastolic dysfunction. Moderately dilated right ventricle. Trivial mitral valve insufficiency. ? 08/10/2023 CTA demonstrated evidence of pulmonary embolism (There is evidence of a intraluminal filling defects in small branches in the right lower lobe suggestive of small pulmonary emboli. No big thrombus is seen.) Patient remains on apixaban plan is to hold and transition to heparin for patient to undergo ultrasound-guided thoracocentesis 4. Acute congestive heart failure with preserved ejection fraction -Echo from 08/04/2023 demonstrated EF of 55%. Patient management strict input and output, fluid restriction as well as diuretic therapy with furosemide 5. Bilateral pleural effusions right greater than left with diffuse bilateral -Plan is for patient to undergo ultrasound-guided thoracocentesis. Patient systemic anticoagulation with apixaban to be held restarted on heparin 6. Suspected pneumonia CT of the chest demonstrated bilateral pulmonary infiltrates involving both upper and lower lobes. Patient remains on broad-spectrum antibiotic therapy 7. Chronic kidney disease stage IIIb ? Monitoring kidney function 8. Presence of solitary kidney ? 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 Hypokalemia ? Corrected per protocol repeat labs ordered for subsequent management 10. Hypertension - Blood pressure controlled, patient is on amlodipine continue also on chlorthalidone held Time spent in the patient's overall evaluation,decision-making process, review of diagnostic data, adjustment of management, discussion with other providers, nursing nursing and ancillary staff involved in patient's care documentation, 50 Minutes Charges/Coding Visit Charges Inpatient E&M: [address]3483 [place] [id number]
--- NOTE | 2023-08-10 07:25 | PN.CC_ITS ---
Assessment & Plan Assessment/Plan (1) Non-STEMI (non-ST elevated myocardial infarction): PLAN: Plan RECOMMENDATIONS: 1. Continue to wean FiO2 to maintain oxygen saturations at or above 90%. 2. Obtain arterial blood gas. 3. Stop Eliquis and transition back to weight-based heparin infusion. 4. Recommend discontinuation of diuretics, as the patient appears to be developing a contraction alkalosis. 5. Continue empiric antibiotics. 6. Start scheduled corticosteroids as ordered. 7. Consider ultrasound-guided thoracentesis. 8. Continue BuSpar as ordered. IMPRESSIONS: 1. Acute hypoxemic respiratory failure Clinical suspicion for underlying decompensated heart failure with preserved ejection fraction in the setting of an NSTEMI, along with pulmonary embolism and possible infectious versus inflammatory pneumonia, as contributing etiologies. Despite volume optimization and treatment with antimicrobials and systemic anti coagulation, the patient's respiratory status remains tenuous. CTA chest did reveal evidence of bilateral pleural effusions. Therefore, we will attempt to proceed with ultrasound-guided thoracentesis. In addition, systemic corticosteroids will be initiated today. The patient did undergo cardiac c atheterization, for which medical therapy was recommended. The patient will be continued on PAP therapy as needed, with a goal to maintain oxygen saturations at or above 90%. 2. NSTEMI/acute decompensated heart failure with preserved ejection fraction Management per cardiology. 3. Acute on chronic kidney disease Nephrology is following. The patient appears to be developing a contraction alkalosis. Recommend discontinuation of Lasix infusion. This note was generated with [employer] dictation software. It may contain incorrect words, spelling, and punctuation that were not noted in checking the note before signing. Subjective Subjective The patient was seen and examined at the bedside this morning. Events from the last 24 hours have been reviewed. The patient is currently afebrile, hemodynamically stable and maintaining appropriate oxygen saturations on AVAPS therapy. The patient is predominantly PAP dependent at this time. He remains on empiric antibiotics, diuretics and systemic anticoagulation. The patient is currently documented to be overall net -2.8 L for the hospitalization. CTA chest completed yesterday demonstrated small right lower lobe PE along with bilateral pulmonary infiltrates bilateral pleural effusions. In light of the patient's lack of improvement, the patient's Eliquis was discontinued and he was placed back on a continuous heparin infusion, with tentative plans to obtain thoracentesis. In addition, empiric corticosteroids were initiated. The patient does continue to report ongoing anxiety symptoms, despite having been initiated on BuSpar yesterday. Objective Data Objective Data The patient's most recent lab work, culture data and imaging studies have all been personally reviewed. Surface echocardiogram demonstrated normal LV size and function with an ejection fraction of 55%. Doppler study was positive for right-sided DVT. Infectious workup has been unrevealing to date. Vital Signs: Vital Signs Temp Pulse Resp BP Pulse Ox O2 Del Method O2 Flow Rate 98.3 F 97 31 H 116/73 93 Bi-pap 60 08/10/23 04:00 08/10/23 07:16 08/10/23 07:16 08/10/23 07:00 08/10/23 07:16 08/10/23 07:16 08/08/23 19:00 FiO2 70 08/10/23 07:16 Oxygen Flow Rate (L/min) 60 Oxygen Delivery Method Bi-pap Weight: 184 lb 15.485 oz Body Mass Index (BMI) 29.8 Intake & Output: Intake and Output for Last 24 Hours 08/08/23 08/09/23 08/10/23 23:59 23:59 23:59 Intake Total 2317.23 / 2317.23 885 / 985 150 / 150 Output Total 2175 / 2575 1650 / 2250 900 / 900 Balance 142.23 / -257.77 -765 / -1265 -750 / -750 Lab / Micro Data Attestation: I reviewed the patient's lab results. 08/10/23 03:10 08/10/23 03:10 Labs: Laboratory Results - last 24 hr 08/06/23 07:45: Diff Path Review Reviewed 08/08/23 02:35: Diff Path Review Reviewed 08/09/23 03:30: B-Natriuretic Peptide 2481.0 H 08/10/23 03:10: WBC 14.4 H, RBC 4.25 L, Hgb 10.8 L, Hct 35.9 L, MCV 84.5, MCH 25.4 L, MCHC 30.1 L, RDW Std Deviation 47.4 H, RDW Coeff of Raghavendra 15.7 H, Plt Count 522 H, MPV 11.7, Immature Gran % (Auto) 0.600, Neut % (Auto) 78.7 H, Lymph % (Auto) 9.2 L, Otero % (Auto) 11.1 H, Eos % (Auto) 0.1, Baso % (Auto) 0.3, A bsolute Neuts (auto) 11.3 H, Absolute Lymphs (auto) 1.32, Nucleated RBC % 0, Diff Path Review August, Sodium 135 L, Potassium 3.6, Chloride 85 L, Carbon Dioxide 39.0 H, Anion Gap 11, BUN 99 H, Creatinine 3.02 H, Estim Creat Clear Calc 23.00, Est GFR (MDRD) Af Amer 26 L, Est GFR (MDRD) Non-Af 22 L, BUN/Creatinine Ratio 32.8 H, Glucose 148 H, Calcium 9.7 Micro: Microbiology 08/04/23 00:00 Sputum, Expectorated/Coughed Gram Stain - Final 08/04/23 00:00 Sputum, Expectorated/Coughed Respiratory Culture - Final 08/03/23 21:57 Urine, Random Legionella Antigen - Final 08/03/23 21:57 Urine, Random Streptococcus pneumoniae Antigen (M - Final 08/03/23 18:30 Mucosa - Nose SARS-CoV-2, Influenza & RSV (PCR) - Final Radiography Diagnostic Testing: Radiology Impression Chest CTA 08/09/23 08:27 IMPRESSION: There is evidence of a intraluminal filling defects in small branches in the right lower lobe suggestive of small pulmonary emboli. No big thrombus is seen. Bilateral pleural effusions right greater than left with diffuse bilateral pulmonary infiltrates involving both upper and lower lobes. Electronically Signed: Jack Garcia MD at 10:16 EDT , Physical Exam Const alert and oriented x3 Constitutional Narrative: BiPAP mask in place. General Appearance: cooperative HEENT normocephalic and head/scalp atraumatic Eyes PERRL, EOMs intact bilaterally and conjunctivae normal Neck supple General: trachea midline Chest inspection of chest normal Resp Effort and Inspection: tachypneic Auscultation: diminished lung sounds; Negative for rales, rhonchi or wheezes Cardio regular rate, regular rhythm, S1 normal heart sound and S2 normal heart sound GI normal to inspection, nondistended, normoactive bowel sounds Extremity no clubbing, cyanosis or edema Skin no rashes or lesions noted Neuro CN's II-XII intact bilaterally, moves all extremities and no focal motor deficits Psych Mood & Affect: anxious Charges/Coding Visit Charges Inpatient E&M: 43266 Subs Hosp L3
[2023-08-10 08:14] LABS: Allen Test Positive; Base Excess 16 mmol/L (-2 to +2); Bicarbonate 39.4 mmol/L (22-26); Blood Gas Specimen Type ART; Comment 28 16; Mode AVAPS; O2 Delivery Device BiPAP; PEEP 14; PO2 86 mmHG (75-100); RR 12; SITE L Radial; SO2 97 % (95-99); Total Carbon Dioxide 41 mmol/L; pCO2 49.1 mmHg (35-45); pH 7.51 (7.35-7.45)
[2023-08-10 08:35] LABS: Partial Thromboplast Time 40.5 Seconds (24.1-36.2)
[2023-08-10] MEDS: HEPARIN/D5w 25,000 UNITS 25,000 UNITS/250 ML IV.SOLN. 12 UNITS CONT INF (08:52)
[2023-08-10] MEDS: Potassium Chloride Oral Tablet 20 MEQ 40 MEQ PO (09:46)
[2023-08-10] MEDS: amLODIPine 5 MG Tablet PO (09:46)
[2023-08-10] MEDS: Metoprolol Tartrate 25 MG Tablet 12.5 MG PO (09:46)
[2023-08-10] MEDS: Aspirin E.C. 81 MG Tablet PO (09:46)
[2023-08-10] MEDS: guaiFENesin 600 MG Tablet PO ×2 (09:46→20:20)
[2023-08-10 09:56] LABS: ALB/GLOB Ratio 0.6 RATIO (0.9-2.4); Globulin 4.3 g/dL (2.2-4.2); LDH 267 U/L (87-241); Protein, Total 6.7 g/dL (6.4-8.2)
[2023-08-10 11:00] LABS: Pathologist Review Reviewed
[2023-08-10 13:20] LABS: Bacteria 0 SEEN /hpf (None Seen); Mucous, Urine 0 SEEN /hpf (<or=2+); Red Blood Cells-Urine 0 SEEN /hpf (0-5); Squamous Epithelial Cells - UA 0 SEEN /hpf (0-5); White Blood Cells 0 SEEN /hpf (0-5)
[2023-08-10 13:44] LABS: Color, Urine Yellow (Yellow); Glucose, Dipstick Normal (Normal); Ketone-Dipstick Negative (Negative); Leukocyte Esterase-Dipstick Negative /ul (Negative); Nitrite-Dipstick Negative (Negative); Occult Blood-Urine Negative /ul (Negative); Protein-Dipstick Negative (Negative); Specific Gravity, Urine 1.015 (1.002-1.030); Urine Bilirubin Dipstick Negative (Negative); Urine Clarity Clear (Clear); Urine Urobilinogen Normal (Normal)
[2023-08-10 14:09] LABS: Anti-dsDNA Ab <1 IU/mL (0-9)
--- NOTE | 2023-08-10 14:34 | PN.RENAL_ITS ---
Subjective Subjective no new events. remains on bipap. Objective Data Objective Data Vital Signs: Vital Signs Temp Pulse Resp BP Pulse Ox O2 Del Method O2 Flow Rate 98.2 F 98 37 H 123/82 H 94 Bi-pap 60 08/10/23 08:00 08/10/23 14:00 08/10/23 14:00 08/10/23 14:00 08/10/23 14:00 08/10/23 14:00 08/08/23 19:00 FiO2 65 08/10/23 14:00 Oxygen Flow Rate (L/min) 60 Oxygen Delivery Method Bi-pap Weight: 83.9 kg Body Mass Index (BMI) 29.8 Intake & Output: Intake and Output for Last 24 Hours 08/08/23 08/09/23 08/10/23 23:59 23:59 23:59 Intake Total 2317.23 / 2317.23 885 / 985 236.63 / 236.63 Output Total 2175 / 2575 1650 / 2250 1100 / 1100 Balance 142.23 / -257.77 -765 / -1265 -863.37 / -863.37 Lab / Micro Data 08/10/23 03:10 08/10/23 03:10 Labs: Laboratory Results - last 24 hr 08/06/23 07:45: Diff Path Review Reviewed 08/08/23 02:35: Diff Path Review Reviewed 08/09/23 10:40: Double Strand DNA Ab <1 08/10/23 03:10: WBC 14.4 H, RBC 4.25 L, Hgb 10.8 L, Hct 35.9 L, MCV 84.5, MCH 25.4 L, MCHC 30.1 L, RDW Std Deviation 47.4 H, RDW Coeff of Raghavendra 15.7 H, Plt Count 522 H, MPV 11.7, Immature Gran % (Auto) 0.600, Neut % (Auto) 78.7 H, Lymph % (Auto) 9.2 L, Reynolds % (Auto) 11.1 H, Eos % (Auto) 0.1, Baso % (Auto) 0.3, Absolute Neuts (auto) 11.3 H, Absolute Lymphs (auto) 1.32, Nucleated RBC % 0, Diff Path Review Reviewed, Sodium 135 L, Potassium 3.6, Chloride 85 L, Carbon Dioxide 39.0 H, Anion Gap 11, BUN 99 H, Creatinine 3.02 H, Estim Creat Clear Calc 23.00, Est GFR (MDRD) Af Amer 26 L, Est GFR (MDRD) Non-Af 22 L, BUN/Creatinine Ratio 32.8 H, Glucose 148 H, Calcium 9.7, Lactate Dehydrogenase 267 H, Total Protein 6.7, Globulin 4.3 H, Albumin/Globulin Ratio 0.6 L 08/10/23 08:00: APTT 40.5 H 08/10/23 13:05: Urine Color Yellow, Urine Clarity Clear, Urine pH 5.0, Ur Specific [place] 1.015, Urine Protein Negative, Urine Glucose (UA) Normal, Urine Ketones Negative, Urine Occult Blood Negative, Urine Nitrite Negative, Urine Bilirubin Negative, Urine Urobilinogen Normal, Ur Leukocyte Esterase Negative, Urine RBC 0 SEEN, Urine WBC 0 SEEN, Ur Squamous Epith Cells 0 SEEN, Urine Bacteria 0 SEEN, Urine Mucus 0 SEEN Micro: Microbiology 08/04/23 00:00 Sputum, Expectorated/Coughed Gram Stain - Final 08/04/23 00:00 Sputum, Expectorated/Coughed Respiratory Culture - Final 08/03/23 21:57 Urine, Random Legionella Antigen - Final 08/03/23 21:57 Urine, Random Streptococcus pneumoniae Antigen (M - Final 08/03/23 18:30 Mucosa - Nose SARS-CoV-2, Influenza & RSV (PCR) - Final ABG Data ABG results: ABG 08/10/23 08:10 Specimen Type ART Sample Site L Radial pH 7.51 H Bicarbonate Actual 39.4 H Total CO2 41 Base Excess 16 H O2 Saturation 97 O2 % 70.0 ABG pCO2 49.1 H ABG pO2 86 Abhijit Test Positive Respiration Rate 12 O2 Delivery Device BiPAP Vent Mode AVAPS Tidal Volume 500.0 POC PEEP 14 Clinical Comments 28 16 Physical Exam Narrative Alert awake oriented x 3 no obvious distress s1s2 no murmurs lungs clear anteriorly. No wheezing, rhonchi or rales noted abdomen soft, nontender no edema Const alert and oriented x3 General Appearance: well developed Orientation / Consciousness: oriented to person, oriented to place and oriented to time HEENT normocephalic Neck no lymphadenopathy Resp Auscultation: crackles right and left GI non-tender Auscultation: normoactive bowel sounds Neuro Sensorium / Orientation: awake and alert Psych cooperative Assessment & Plan Assessment/Plan (1) TRENA (acute kidney injury): PLAN: TRENA CKD 3B respiratory failure not much urine output for the amount of lasix drip. cr worse. alkalotic. he looks dry. doubt this is fluid overload. dc lasix drip. likely interstitial lung disease. serologies pending. too unstable for bronch and biopsy. dw at bedside. [facility], cardiology attending. (2) Chronic kidney disease, stage 3b:
[2023-08-10] MEDS: Vancomycin HCl 750 MG in 0.9% Normal Saline (250mL Bag) 250 ML 250 MG IV (18:03)
[2023-08-10] MEDS: Atorvastatin Calcium 40 MG Tablet PO (20:20)
[2023-08-11] VITALS (37 sets, daily range): BP systolic 81–142; BP diastolic 58–88; PULSE 68–106; RESP 12–40; TEMP 36–36.6; O2SAT 88–100; BMI 29.7
--- NOTE | 2023-08-11 | IMM_PTH ---
PATIENT: DINH SIN LOC: ICU U#:[id number] AGE/SX: 72/M ROOM: [place] [address] RE08/03/[address]: Dr. Radhika Ledezma MD : 1950 BED: 1 DIS: 09/01/2023 SPEC #: [id number] RECD: 08/15/23 11:04 STATUS: SOUT REQ #: [id number] ALVERTO: 08/11/23 00:[address]: Sowmya Pablo DEPT: IMMUNOHISTOCHEMISTRY RECD BY: Isidoro Baca ENTERED: 08/15/23 11:05 SP TYPE: IMMUNO OTHR DR: MD Dr. Jose Owusu MD Dr. Derek Brown, DO Dr. David Kittoe, MD Dr. Eric Jopperi, DO Dr. Edward Matheis, MD Dr. Gautam Baskaran, MD Dr. Yordanos Habtegebriel, MD Dr. Hemant Dand, MD Dr. Jeffrey Burkey, MD Dr. Jayaprakas Dasari, MD Dr. Kimber Foust, MD Dr. Lamia Aljundi, MD Dr. Mark Tereletsky, DO Dr. Nagapradee Nagajothi, MD Dr. Pritam Ghosh, MD Dr. Pavan Irukulla, MD Dr. Saad Farooqi, MD Dr. Vikram Anand, MD Dr. William Haden, MD Tissues: THORACIC FLUID Procedures: RCC (add) NAPSIN A (add) Kam Ret (add) CK20 (add) CK5-6 (add) CK7 (add) CK8 (add) HEP PAR (add) TTF1 (add) Vimentin (add) Pankeratin (initial) P40 (add) PSAP (add) CD68 (ADD) PHYSICIAN & [place] [id number] SPECIMEN INFORMATION: Tissue Source: Thoracentesis fluid Clinical Info: Pleural effusion Specimen Number: [id number] CPT code: [id number] METHODOLOGY: Deparaffinized sections of prefer/formalin-fixed tissue or PAP/DQ stained slides are incubated with monoclonal/polyclonal antibodies/oligonucleotide probes. Localization is made via biotin free immunoperoxidase method. Appropriate controls are performed and reacted as expected. Results on target cell population are indicated in the following table: RESULTS: ANTIBODY / CLONE RESULT AE1-3 (AE1/AE3/PCK26) positive CK7 (OV-TL12/30) positive CK8 (87xgarQ01) positive CK20 (KS20.8) negative Vimentin (V9) negative CD68 (KP-1) negative TTF-1 (8G7G3/1) negative Napsin A (Rabbit Polyclonal) negative HepPar (OCh1E5) negative RCC (PN-15) negative PSAP (PASE/4LJ) negative CALRET (polyclonal) negative CK5-6 (D5 & 1684) negative P40 (BC28) negative These tests were developed and their performance characteristics determined by [facility]. They may not have been cleared or approved by the U.[place]. Food and Drug Administration. The FDA has determined that such clearance or approval is not necessary. The above immunohistochemical/dualISH markers are ordered and reviewed by the Pathologist. INTERPRETATION: Thoracentesis fluid: Malignant cells present derived from non-small cell carcinoma, favor adenocarcinoma. See comment. LAWRENCE/ 08/16/23 Comment: IHC profile is non- contributory for primary site of origin.
[2023-08-11] MEDS: CHLORHEXIDINE GLUC 2% CLOTH 1 EACH TOWELETTE TOPICAL ×2 (03:05→21:57)
[2023-08-11] MEDS: 0.9% Saline Lock 10 ML Syringe IV ×6 (03:05→21:37)
[2023-08-11 03:16] LABS: Absolute Lymphocyte Count 0.71 X10^3/uL (0.83-4.51); Absolute Neutrophil Count 10.4 X10^3/uL (2.0-7.7); Basophil# 0.01 X10^3/uL; Basophil% 0.1 % (0-1); Hematocrit 37.6 % (40-54); Hemoglobin 11.5 g/dL (13.0-16.5); Lymphocyte # 0.71 X10^3/ul (0.83-4.51); Lymphocyte % 6.2 % (19-41); Mean Corp Hgb Conc 30.6 g/dL (32-36); Mean Corpuscular Hgb 25.4 pg (27.0-32.0); Mean Platelet Vol. 12.1 fl (6.2-12.0); Monocyte# 0.26 X10^3/uL; Monocyte% 2.3 % (0-10); NRBC Flagged by Analyzer 0 % (0-5); Neutrophil # 10.37 X10^3/uL (2.7-7.7); Neutrophil % 90.4 % (47-70); Platelet Count 570 K/mm3 (150-450); RBC Distribution Width CV 15.8 % (11.6-14.6); RBC Distribution Width SD 47.2 fl (35.1-43.9); Red Blood Count 4.53 M/mm3 (4.6-6.2); White Blood Count 11.5 K/mm3 (4.4-11.0)
[2023-08-11 04:13] LABS: Anion Gap 15 (5-15); BUN 120 mg/dL (7-18); BUN/Creat Ratio 30.5 RATIO (10-20); Chloride 85 mmol/L (98-107); Creatinine, Serum 3.93 mg/dL (0.70-1.30); EST Glomerular Filtration Rate 16 mL/min (>60); Est Glom Filt Rate - Afr Amer 20 mL/min (>60); Estimated Creatinine Clearance 17.51 ml/min; Glucose 201 mg/dL (74-106); Potassium 3.9 mmol/L (3.5-5.1); Sodium Level 134 mmol/L (136-145)
[2023-08-11] MEDS: Piperacil/Tazobactam 3.375 GM in 0.9% Normal Saline (50mL MB+) 50 ML IV ×3 (05:46→20:08)
[2023-08-11 06:23] LABS: Partial Thromboplast Time 37.7 Seconds (24.1-36.2)
[2023-08-11] MEDS: Heparin Injection (Vial) 5,000 UNIT/ML VIAL IV ×2 (06:29→21:35)
--- NOTE | 2023-08-11 07:43 | PCM.PN.INT ---
Assessment & Plan Assessment/Plan (1) Non-STEMI (non-ST elevated myocardial infarction): PLAN: Plan RECOMMENDATIONS: 1. Proceed with intubation, given lack of clinical improvement and tenuous respiratory status. 2. Continue weight-based heparin infusion for now. 3. Continue empiric broad-spectrum antimicrobials as ordered. 4. Continue empiric corticosteroids. 5. Will arrange for bronchoscopy with endoscopy. 6. Consider ultrasound-guided thoracentesis. 7. Initiate appropriate GI prophylaxis. IMPRESSIONS: 1. Acute hypoxemic respiratory failure Unclear etiology. Initially, the patient's respiratory decompensation was felt to be a consequence of decompensated heart failure with preserved ejection fraction in the setting of an NSTEMI. Subsequent attempts at volume optimization led to no significant improvement in his respiratory status. Other potential etiologies include pulmonary embolism along with infectious versus inflammatory pneumonia. As such, the patient has been maintained on antimicrobials and pulse dose steroids. Upon intubation, the patient was noted to have a significant amount of bleeding from his endotracheal tube, raising the suspicion for diffuse alveolar hemorrhage as well. Will plan to proceed with bronchoscopy. In addition, the patient continues to demonstrate evidence of pleural effusions, consideration can be given to thoracentesis. The patient did undergo cardiac catheterization, for which medical therapy was recommended. The patient will be continued on assist-control mode mechanical ventilation, with a goal to wean FiO2 and PEEP for saturations greater than 90%. 2. NSTEMI/acute decompensated heart failure with preserved ejection fraction Management per cardiology. 3. Acute on chronic kidney disease Nephrology is following. The patient's worsening renal insufficiency is likely multifactorial and related to prerenal etiology coupled with possible contrast nephropathy from recent catheterization and CTA chest. The patient is still making urine, however. Therefore, continue current supportive measures and continue to monitor urine output. TIME: 35 minutes, independent of procedures, was spent addressing the patient's acute hypoxemic respiratory failure, NSTEMI, acute decompensated heart failure with preserved ejection fraction, acute on chronic kidney disease, review of all data and collaboration with care team. Subjective Subjective The patient was seen and examined at the bedside this morning. Events from the last 24 hours have been reviewed. The patient is currently afebrile, hemodynamically stable and maintaining appropriate oxygen saturations on AVAPS therapy with an FiO2 requirement of 60%. Nursing staff reported that even with small breaks off of PAP therapy, the patient readily desaturates. The patient has essentially been PAP dependent now for 48 hours. I spoke to the patient this morning at length regarding his overall prognosis. I explained to him that if he was agreeable to intubation that we could potentially proceed with bronchoscopy and thoracentesis. The patient is wishing to proceed with endotracheal intubation in an attempt to further optimize his respiratory status. CODE STATUS was discussed with him. He did indicate that while he is agreeable to intubation, he would not want CPR performed if his heart stops. Accordingly, the patient's CODE STATUS was updated to DNR CCA with intubation. He is currently documented to be overall net -3 L for the hospitalization. He remains on a continuous heparin infusion, along with antimicrobials and pulse dose steroids. Unfortunately, the patient's renal function continues to worsen with a BUN this morning of 120 and creatinine of 3.93. Objective Data Objective Data The patient's most recent lab work, culture data and imaging studies have all been personally reviewed. Surface echocardiogram demonstrated normal LV size and function with an ejection fraction of 55%. Doppler study was positive for right-sided DVT. Infectious workup has been unrevealing to date. Vital Signs: Vital Signs Temp Pulse Resp BP Pulse Ox O2 Del Method O2 Flow Rate 97.8 F 105 H 40 H 130/84 H 93 Bi-pap 60 08/11/23 03:00 08/11/23 07:20 08/11/23 07:20 08/11/23 07:00 08/11/23 07:20 08/11/23 07:00 08/10/23 20:35 FiO2 60 08/11/23 07:20 Oxygen Flow Rate (L/min) 60 Oxygen Delivery Method Bi-pap Weight: 184 lb 11.958 oz Body Mass Index (BMI) 29.7 Intake & Output: Intake and Output for Last 24 Hours 08/09/23 08/10/23 08/11/23 23:59 23:59 23:59 Intake Total 885 / 985 634.23 / 634.23 161.9 / 161.9 Output Total 1650 / 2250 1550 / 1550 200 / 200 Balance -765 / -1265 -915.77 / -915.77 -38.1 / -38.1 Lab / Micro Data Attestation: I reviewed the patient's lab results. 08/11/23 03:01 08/11/23 03:01 Labs: Laboratory Results - last 24 hr 08/09/23 10:40: Double Strand DNA Ab <1 08/10/23 03:10: Diff Path Review Reviewed, Lactate Dehydrogenase 267 H, Total Protein 6.7, Globulin 4.3 H, Albumin/Globulin Ratio 0.6 L 08/10/23 08:00: APTT 40.5 H 08/10/23 13:05: Urine Color Yellow, Urine Clarity Clear, Urine pH 5.0, Ur Specific [place] 1.015, Urine Protein Negative, Urine Glucose (UA) Normal, Urine Ketones Negative, Urine Occult Blood Negative, Urine Nitrite Negative, Urine Bilirubin Negative, Urine Urobilinogen Normal, Ur Leukocyte Esterase Negative, Urine RBC 0 SEEN, Urine WBC 0 SEEN, Ur Squamous Epith Cells 0 SEEN, Urine Bacteria 0 SEEN, Urine Mucus 0 SEEN 08/10/23 14:55: APTT 164.0 H* 08/10/23 23:50: APTT 76.0 H 08/11/23 03:01: WBC 11.5 H, RBC 4.53 L, Hgb 11.5 L, Hct 37.6 L, MCV 83.0, MCH 25.4 L, MCHC 30.6 L, RDW Std Deviation 47.2 H, RDW Coeff of Raghavendra 15.8 H, Plt Count 570 H, MPV 12.1 H, Immature Gran % (Auto) 1.000 H, Neut % (Auto) 90.4 H, Lymph % (Auto) 6.2 L, [place] % (Auto) 2.3, Eos % (Auto) 0.0, Baso % (Auto) 0.1, Absolute Neuts (auto) 10.4 H, Absolute Lymphs (auto) 0.71 L, Nucleated RBC % 0, Sodium 134 L, Potassium 3.9, Chloride 85 L, Carbon Dioxide 34.0 H, Anion Gap 15, BUN 120 H*, Creatinine 3.93 H, Estim Creat Clear Calc 17.51, Est GFR (MDRD) Af Amer 20 L, Est GFR (MDRD) Non-Af 16 L, BUN/Creatinine Ratio 30.5 H, Glucose 201 H, Calcium 10.0 08/11/23 05:55: APTT 37.7 H Micro: Microbiology 08/04/23 00:00 Sputum, Expectorated/Coughed Gram Stain - Final 08/04/23 00:00 Sputum, Expectorated/Coughed Respiratory Culture - Final 08/03/23 21:57 Urine, Random Legionella Antigen - Final 08/03/23 21:57 Urine, Random Streptococcus pneumoniae Antigen (M - Final 08/03/23 18:30 Mucosa - Nose SARS-CoV-2, Influenza & RSV (PCR) - Final ABG Data ABG results: ABG 08/10/23 08:10 Specimen Type ART Sample Site L Radial pH 7.51 H Bicarbonate Actual 39.4 H Total CO2 41 Base Excess 16 H O2 Saturation 97 O2 % 70.0 ABG pCO2 49.1 H ABG pO2 86 Abhijit Test Positive Respiration Rate 12 O2 Delivery Device BiPAP Vent Mode AVAPS Tidal Volume 500.0 POC PEEP 14 Clinical Comments 28 16 Radiography Diagnostic Testing: Radiology Impression Chest CTA 08/09/23 08:27 IMPRESSION: There is evidence of a intraluminal filling defects in small branches in the right lower lobe suggestive of small pulmonary emboli. No big thrombus is seen. Bilateral pleural effusions right greater than left with diffuse bilateral pulmonary infiltrates involving both upper and lower lobes. Electronically Signed: Jack Garcia MD at 10:16 EDT , Physical Exam Const alert and oriented x3 Constitutional Narrative: BiPAP mask in place. General Appearance: cooperative HEENT normocephalic and head/scalp atraumatic Eyes PERRL, EOMs intact bilaterally and conjunctivae normal Neck supple General: trachea midline Chest inspection of chest normal Resp Effort and Inspection: tachypneic Auscultation: diminished lung sounds; Negative for rales, rhonchi or wheezes Cardio regular rate, regular rhythm, S1 normal heart sound and S2 normal heart sound GI normal to inspection, nondistended, normoactive bowel sounds Extremity no clubbing, cyanosis or edema Skin no rashes or lesions noted Neuro CN's II-XII intact bilaterally, moves all extremities and no focal motor deficits Psych Mood & Affect: anxious Charges/Coding Procedures Hospitalists Procedures: 71284 Critical Care 1st Hr
[2023-08-11] MEDS: Midazolam 2 MG/2 ML Syringe 4 MG IV (08:35)
[2023-08-11] MEDS: Etomidate 20 MG/10 ML Vial IV (08:35)
[2023-08-11] MEDS: fentaNYL drip 100 ML 5 MCG CONT INF (08:36)
[2023-08-11] MEDS: Propofol 10MG/Ml 1,000 MG/100 ML Bottle 5 MG CONT INF (08:37)
--- NOTE | 2023-08-11 08:45 | PCM.PN.HOSP ---
Reason for Visit Reason for Visit: Diagnoses Non-ST elevation (NSTEMI) myocardial infarction (08/03/23) Pneumonia, unspecified organism (08/03/23) Acute kidney failure, unspecified (08/03/23) Chronic kidney disease, stage 3b (08/03/23) Subjective Subjective Patient seen still remains significantly hypoxic despite optimal treatment of noninvasive ventilation. Case discussed with Dr. Munoz plans for patient to undergo elective intubation. His kidney function also continues to worsen Objective Data Objective Data Vital Signs: Vital Signs Temp Pulse Resp BP Pulse Ox O2 Del Method O2 Flow Rate 97.8 F 105 H 40 H 130/84 H 93 Bi-pap 60 08/11/23 03:00 08/11/23 07:20 08/11/23 07:20 08/11/23 07:00 08/11/23 07:20 08/11/23 07:00 08/10/23 20:35 FiO2 60 08/11/23 07:20 Oxygen Flow Rate (L/min) 60 Oxygen Delivery Method Bi-pap Weight: 83.8 kg Body Mass Index (BMI) 29.7 Intake & Output: Intake and Output for Last 24 Hours 08/09/23 08/10/23 08/11/23 23:59 23:59 23:59 Intake Total 885 / 985 634.23 / 634.23 161.9 / 161.9 Output Total 1650 / 2250 1550 / 1550 200 / 200 Balance -765 / -1265 -915.77 / -915.77 -38.1 / -38.1 Lab / Micro Data 08/11/23 03:01 08/11/23 03:01 Labs: Laboratory Results - last 24 hr 08/09/23 10:40: Double Strand DNA Ab <1 08/10/23 03:10: Diff Path Review Reviewed, Lactate Dehydrogenase 267 H, Total Protein 6.7, Globulin 4.3 H, Albumin/Globulin Ratio 0.6 L 08/10/23 13:05: Urine Color Yellow, Urine Clarity Clear, Urine pH 5.0, Ur Specific [place] 1.015, Urine Protein Negative, Urine Glucose (UA) Normal, Urine Ketones Negative, Urine Occult Blood Negative, Urine Nitrite Negative, Urine Bilirubin Negative, Urine Urobilinogen Normal, Ur Leukocyte Esterase Negative, Urine RBC 0 SEEN, Urine WBC 0 SEEN, Ur Squamous Epith Cells 0 SEEN, Urine Bacteria 0 SEEN, Urine Mucus 0 SEEN 08/10/23 14:55: APTT 164.0 H* 08/10/23 23:50: APTT 76.0 H 08/11/23 03:01: WBC 11.5 H, RBC 4.53 L, Hgb 11.5 L, Hct 37.6 L, MCV 83.0, MCH 25.4 L, MCHC 30.6 L, RDW Std Deviation 47.2 H, RDW Coeff of Raghavendra 15.8 H, Plt Count 570 H, MPV 12.1 H, Immature Gran % (Auto) 1.000 H, Neut % (Auto) 90.4 H, Lymph % (Auto) 6.2 L, [place] % (Auto) 2.3, Eos % (Auto) 0.0, Baso % (Auto) 0.1, Absolute Neuts (auto) 10.4 H, Absolute Lymphs (auto) 0.71 L, Nucleated RBC % 0, Sodium 134 L, Potassium 3.9, Chloride 85 L, Carbon Dioxide 34.0 H, Anion Gap 15, BUN 120 H*, Creatinine 3.93 H, Estim Creat Clear Calc 17.51, Est GFR (MDRD) Af Amer 20 L, Est GFR (MDRD) Non-Af 16 L, BUN/Creatinine Ratio 30.5 H, Glucose 201 H, Calcium 10.0 08/11/23 05:55: APTT 37.7 H Micro: Microbiology 08/04/23 00:00 Sputum, Expectorated/Coughed Gram Stain - Final 08/04/23 00:00 Sputum, Expectorated/Coughed Respiratory Culture - Final 08/03/23 21:57 Urine, Random Legionella Antigen - Final 08/03/23 21:57 Urine, Random Streptococcus pneumoniae Antigen (M - Final 08/03/23 18:30 Mucosa - Nose SARS-CoV-2, Influenza & RSV (PCR) - Final Physical Exam Narrative GENERAL: Patient remains on BiPAP, HEENT: Atraumatic; normocephalic EYES; Anicteric, Normal Conjunctiva NECK; supple, normal thyroid, RESPIRATORY: Diminished to auscultation CARDIOVASCULAR: Regular S1 S2, GI: soft, normoactive bowel sounds, : No Renal angle tenderness; EXTREMITIES: No edema, no clubbing, MUSCULOSKELETAL: no muscle wasting NEURO: Awake; no lateralizing signs. SKIN: No Rash PSYCH; Flat affect Assessment & Plan Assessment/Plan (1) Non-STEMI (non-ST elevated myocardial infarction): PLAN: Plan Patient is a 72-year-old gentleman admitted with shortness of breath was found to have elevated troponin consistent with acute non-STEMI treatment initiated per protocol admitted to the intensive care unit. Patient was found to be in acute respiratory failure resulting in the use of BiPAP 1. Acute non-STEMI ? Patient admitted to the intensive care unit managed per protocol with heparin, aspirin added statin therapy and beta-blockers with consultation placed to cardiology. Plan is for patient to undergo left heart catheterization ? 08/09/2023 cardiac catheterization demonstrated Normal left main coronary artery, First diagonal vessel with 90% long proximal stenosis, Left anterior descending artery with mild disease ,Nondominant left circumflex artery with first obtuse marginal branch with 70% stenosis, Totally occluded right coronary artery with [id number] collaterals ,Low normal left ventricular ejection fraction noted on echocardiogram with dilated right ventricle 2. Acute hypoxic respiratory failure ? Multifactorial including acute congestive heart failure, suspected PE as well as pneumonia patient placed on noninvasive ventilation Airvo. Consult placed to plywood and veneer repairer notes and recommendations reviewed ? 08/09/2023.Patient seen remains on noninvasive ventilation on BiPAP. Given his significant oxygen requirement decision was made for patient to undergo CTA of the chest to evaluate possible clot burden. ? 08/10/2023; CTA of the chest demonstrated evidence of pulmonary embolism, bilateral pulmonary infiltrates as well as bilateral pleural effusion right greater than left. ? 08/11/2023; respiratory status continues to worsen plan is for patient to undergo elective intubation 3. Acute VTE (RLE DVT and PE) -Patient underwent VQ scan which was nonconclusive lower extremity duplex demonstrated acute right lower extremity DVT. Patient is on heparin The estimated ejection fraction is 55 %. Unable to assess diastolic dysfunction. Moderately dilated right ventricle. Trivial mitral valve insufficiency. ? 08/10/2023 CTA demonstrated evidence of pulmonary embolism (There is evidence of a intraluminal filling defects in small branches in the right lower lobe suggestive of small pulmonary emboli. No big thrombus is seen.) Patient remains on apixaban plan is to hold and transition to heparin for patient to undergo ultrasound-guided thoracocentesis 4. Acute congestive heart failure with preserved ejection fraction -Echo from 08/04/2023 demonstrated EF of 55%. Patient management strict input and output, fluid restriction as well as diuretic therapy with furosemide 5. Bilateral pleural effusions right greater than left with diffuse bilateral -Plan is for patient to undergo ultrasound-guided thoracocentesis. Patient systemic anticoagulation with apixaban to be held restarted on heparin 6. Suspected pneumonia CT of the chest demonstrated bilateral pulmonary infiltrates involving both upper and lower lobes. Patient remains on broad-spectrum antibiotic therapy 7. Chronic kidney disease stage IIIb ? Monitoring kidney function ? 08/11/2023; kidney function continues to worsen following diagnostician as well as diuretic therapy nephrology on board 8. Presence of solitary kidney ? 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 Hypokalemia ? Corrected per protocol repeat labs ordered for subsequent management 10. Hypertension - Blood pressure controlled, patient is on amlodipine continue also on chlorthalidone held Time spent in the patient's overall evaluation,decision-making process, review of diagnostic data, adjustment of management, discussion with other providers, nursing nursing and ancillary staff involved in patient's care documentation, 50 Minutes Charges/Coding Visit Charges Inpatient E&M: [id number] [place] [id number]
--- NOTE | 2023-08-11 08:50 | RAD_ITS ---
STUDY: X-RAY CHEST REASON FOR EXAM: Male, 72 years old. Intubated TECHNIQUE: Single AP portable view of the chest. COMPARISON: Comparison is made with prior study August 08, 2023. FINDINGS: An endotracheal tube is in situ. The tip is at 6.8 cm proximal to the zack. An orogastric tube is seen. The tip is heading towards the gastroesophageal junction. EKG electrodes are seen. Progressive diffuse bilateral airspace disease with a small right pleural effusion. Normal size heart. Normal mediastinum and salazar. Normal visualized pulmonary arteries. Normal visualized aortic arch and descending thoracic aorta. Normal visualized thoracic spine. Normal visualized ribs, clavicles, and shoulders. There is no demonstrated abnormality of the visualized soft tissue structures of the upper abdomen. RAD/CXR for Line Placement IMPRESSION: Progressive bilateral airspace disease with a small right pleural effusion. The tip of the endotracheal tube is at 6.8 cm proximal to the zack. The tip of the orogastric tube is heading towards the gastroesophageal junction. Electronically Signed: Jack Garcia MD at 10:11 EDT ,
--- NOTE | 2023-08-11 09:35 | PCM.OP.PRO ---
Procedure Report Date of Procedure: 08/11/23 Intubation Indication: Respiratory failure Consent was obtained from: Patient The patient was placed in the appropriate sniffing position. Preoxygenated sedation via BiPAP was provided for a minimum of 3 minutes. The patient had continuous cardiac as well as pulse oximetry monitoring during the procedure. Procedure sedation was provided by the administration of 4 mg of Versed and 20 mg of etomidate. Direct laryngoscopy was then performed using a number 4 MAC blade, which revealed a grade 1 view. A 7.5 mm endotracheal tube was visualized advancing between the cords to the level of 24 cm at the lip. The stylette was then removed and discarded. Tube placement was confirmed by fogging in the tube along with equal and bilateral breath sounds. Colorimetric change was visualized on the CO2 meter. The cuff was then inflated and the tube secured using a commercially available device. A good pulse oximetry waveform was seen on the monitor throughout the procedure. A portable chest x-ray has been ordered to confirm appropriate placement. The patient tolerated the procedure well. Procedures Pulmonary 9xxxx: [id number] Insert emergency airway
--- NOTE | 2023-08-11 09:41 | CASEMGMT ---
Addendum entered by Bettina Myers 08/11/23 10:52: Social Work did bring in healthcare POA and living will documents, Duc is healthcare POA. SW placed copies on the chart. SHELTON Medina Original Note: Social Work SW spoke w/ about LW/POA, she states she thinks pt did complete the documents, will bring them in. She thinks she is POA for healthcare, and their nephew who is a nurse in [place] is also on the document. Pt's not certain exactly which document to bring, she has a binder, SW explained if she brings it in we can help her to figure it out. SHELTON Medina
--- NOTE | 2023-08-11 09:42 | CASEMGMT ---
Social Work SW called on the phone to offer support. states she has high blood pressure, is taking her medication. tearful on the phone. She states pt had cancer in February and has been through a lot. She states she does not want him to suffer. They have been 42 years. SW offered support to and remains available to speak w/ should it be helpful. SHELTON Medina
[2023-08-11 10:00] LABS: CPK Total, Creatine Kinase 75 U/L (39-308); Triglycerides 202 mg/dL
--- NOTE | 2023-08-11 10:04 | PN.RENAL_ITS ---
Subjective Subjective Patient intubated this am and family friends at bedside Objective Data Objective Data Vital Signs: Vital Signs Temp Pulse Resp BP Pulse Ox O2 Del Method O2 Flow Rate 97.8 F 106 H 17 130/84 H 88 Bi-pap 60 08/11/23 03:00 08/11/23 08:36 08/11/23 08:36 08/11/23 07:00 08/11/23 08:36 08/11/23 07:00 08/10/23 20:35 FiO2 100 08/11/23 08:36 Oxygen Flow Rate (L/min) 60 Oxygen Delivery Method Bi-pap Weight: 83.8 kg Body Mass Index (BMI) 29.7 Intake & Output: Intake and Output for Last 24 Hours 08/09/23 08/10/23 08/11/23 23:59 23:59 23:59 Intake Total 885 / 985 634.23 / 634.23 175.92 / 175.92 Output Total 1650 / 2250 1550 / 1550 200 / 200 Balance -765 / -1265 -915.77 / -915.77 -24.08 / -24.08 Lab / Micro Data 08/11/23 03:01 08/11/23 03:01 Labs: Laboratory Results - last 24 hr 08/09/23 10:40: Double Strand DNA Ab <1 08/10/23 03:10: Diff Path Review Reviewed 08/10/23 13:05: Urine Color Yellow, Urine Clarity Clear, Urine pH 5.0, Ur Specific [place] 1.015, Urine Protein Negative, Urine Glucose (UA) Normal, Urine Ketones Negative, Urine Occult Blood Negative, Urine Nitrite Negative, Urine Bilirubin Negative, Urine Urobilinogen Normal, Ur Leukocyte Esterase Negative, Urine RBC 0 SEEN, Urine WBC 0 SEEN, Ur Squamous Epith Cells 0 SEEN, Urine Bacteria 0 SEEN, Urine Mucus 0 SEEN 08/10/23 14:55: APTT 164.0 H* 08/10/23 23:50: APTT 76.0 H 08/11/23 03:01: WBC 11.5 H, RBC 4.53 L, Hgb 11.5 L, Hct 37.6 L, MCV 83.0, MCH 25.4 L, MCHC 30.6 L, RDW Std Deviation 47.2 H, RDW Coeff of Raghavendra 15.8 H, Plt Count 570 H, MPV 12.1 H, Immature Gran % (Auto) 1.000 H, Neut % (Auto) 90.4 H, Lymph % (Auto) 6.2 L, [place] % (Auto) 2.3, Eos % (Auto) 0.0, Baso % (Auto) 0.1, Absolute Neuts (auto) 10.4 H, Absolute Lymphs (auto) 0.71 L, Nucleated RBC % 0, Sodium 134 L, Potassium 3.9, Chloride 85 L, Carbon Dioxide 34.0 H, Anion Gap 15, BUN 120 H*, Creatinine 3.93 H, Estim Creat Clear Calc 17.51, Est GFR (MDRD) Af Amer 20 L, Est GFR (MDRD) Non-Af 16 L, BUN/Creatinine Ratio 30.5 H, Glucose 201 H, Calcium 10.0, Total Creatine Kinase 75, Triglycerides 202 H 08/11/23 05:55: APTT 37.7 H Micro: Microbiology 08/04/23 00:00 Sputum, Expectorated/Coughed Gram Stain - Final 08/04/23 00:00 Sputum, Expectorated/Coughed Respiratory Culture - Final 08/03/23 21:57 Urine, Random Legionella Antigen - Final 08/03/23 21:57 Urine, Random Streptococcus pneumoniae Antigen (M - Final 08/03/23 18:30 Mucosa - Nose SARS-CoV-2, Influenza & RSV (PCR) - Final Physical Exam Narrative on vent support no obvious distress s1s2 no murmurs lungs clear anteriorly abdomen soft no edema de leon Assessment & Plan Assessment/Plan (1) TRENA (acute kidney injury): PLAN: - TRENA superimposed on CKD; baseline creatinine around 2.0. Acute renal failure was felt to be related to cardiorenal syndrome however also concern for vasculitis. Serologies sent and are pending. SCr 2 on admission and for few days SCr ranging around 2.4-2.6mg/dL even while on lasix gtt. Yesterday SCr 3.02 and lasix gtt stopped. Today creatinine is up to 3.93, BUN 120, potassium 3.9 and bicarb improved to 34. Patient has urine output but has decreased. Bps acceptable. Currently no acute indication for renal placement therapy. Per d ocumentation patient is net -3 L. Labs ordered for the morning. Will continue to follow renal function trajectory, discussed with patient's . - Acute hypoxemic respiratory failure with unclear etiology--> had been requiring high flow O2, started on IV steroids with not much improvement theref ore discussion with patient this am regarding intubation with attempt for thoracentesis/bronchoscopy. Patient agreeable. Probable thoracentesis today. Patient had significant amount of bleeding during intubation with concern for diffuse alveolar hemorrhage therefore planning bronchoscopy. Patient had been on Lasix drip, increased to 20mg/hr on 08/07 drip stopped 08/09 along with metolazone. Patient's urine output while on Lasix drip was around 2 to 2.5 L. Yesterday urine output 1.[address] angiogram: No big thrombus seen, small pulmonary emboli, bilateral pleural effusions right greater than left with diffuse bilateral pulmonary infiltrates involving upper and lower lobes. - NSTEMI, acute decompensated heart failure with preserved EF; cardiac cath 08/07 recommendations medical therapy for coronary artery disease (2) Chronic kidney disease, stage 3b:
[2023-08-11 10:18] LABS: Allen Test Positive; Base Excess 13 mmol/L (-2 to +2); Bicarbonate 36.1 mmol/L (22-26); Blood Gas Specimen Type ART; Mode AC; O2 Delivery Device Adult Vent; PEEP 10; PO2 132 mmHG (75-100); RR 14; SITE L Radial; SO2 99 % (95-99); Total Carbon Dioxide 38 mmol/L; pCO2 49.8 mmHg (35-45); pH 7.47 (7.35-7.45)
[2023-08-11] MEDS: Pantoprazole Sodium 40 MG in 0.9% Normal Saline (100mL MB+) 100 ML 330 MG IV (10:57)
[2023-08-11 12:23] LABS: Partial Thromboplast Time 87.2 Seconds (24.1-36.2)
[2023-08-11] MEDS: HEPARIN/D5w 25,000 UNITS 25,000 UNITS/250 ML IV.SOLN. 10 UNITS CONT INF (12:57)
--- NOTE | 2023-08-11 13:08 | PCM.OP.PRO ---
Procedure Report Date of Procedure: 08/11/23 Assessment & Plan Assessment/Plan (1) Pneumonia: QUALIFIERS: Pneumonia type: due to unspecified organism Procedures Radiology Radiology Access Procedures: PICC Procedure Time Out Time Out Informed consent given: Yes Consent signed: Yes Time out checklist: patient, procedure, site marked/identified, positioning of patient, supplies available and allergies confirmed Time out verified: Yes Time out date: 08/11/23 Time out time: 09:00 PICC Line Consent Screening tool completed:: Yes Consent obtained:: Yes Consent given by (patient or responsible alliance party):: patient's via phone Line successful (if no, document why in comments):: Yes Insertion Reason for Insertion: vesicant Date of Insertion: 08/11/23 Ok to use: Yes Type of PICC inserted: Dual Power PICC PICC Lot #: [id number] PICC Reference #: [id number] Microintroducer Used: Yes (in kit) Ultrasound/Equipment Used: Probe Cover Kit Trimmed Length (cm): 45 Insertion Length (cm): 45 Exposed Length (cm): 0 Tip Placement: Caval Atrial Junction Placement Confirmation: 3CG Insertion Vein: Right Brachial Insertion Attempts: 1 Local Anesthesia Used: Lidocaine 1% (in kit) Dressing Applied: Statlock and Tegaderm CHG Arm Measurement above site (in cm): 27 Patient Tolerated Procedure: Well Threading Difficulties: No Comments Comment: Patient identity was verified with two patient identifiers. Informed consent was obtained and time-out was completed. Hands were sanitized. The patient was positioned supine with right arm at 90 degrees. The patient's upper arm vasculature was assessed using ultrasound. Patency of the right brachial vein was confirmed and the vein was externally marked. An external measurement was obtained of 45 cm. External leads were applied to the patient's right upper chest and laterally and inferior of the umbilicus on the mid axillary line. Cap, mask, and prep gloves were donned. The underdrape was placed under the patient's arm. The site was prepped with chlorhexidine, and tourniquet was loosely applied. Prep gloves were discarded, and hands were sanitized. The sterile kit was opened with additional supplies dropped in. Sterile gown and gloves were donned, and the patient was draped. The sterile kit was assembled with needle, introducer, needless connectors, and each catheter lumen flushed with sterile normal saline. The marked site of insertion was anesthetized with 1% lidocaine from the kit. Patient tolerated well. The right brachial vein was then accessed using ultrasound guidance and guidewire was inserted to safety tommie. The tourniquet was released. The access needle was removed while securing the guidewire in place. The site was again anesthetized with 1% lidocaine, prior to insertion of introducer sheath and dilator. Patient tolerated the insertion well. The catheter was trimmed to a length of 45 cm. Using 3C guidance, the catheter was then inserted through the introducer sheath, slowly. There was no resistance on insertion. The catheter followed the expected course of the vessel using 3CG tracking. The introducer sheath was retracted and peeled away, incrementally, while keeping the catheter secured. Maximal p-wave, without deflection, confirming placement in the cavoatrial junction, was obtained at an insertion length of 45 cm, leaving 0 cm external. The stylet was removed. A flushed needleless connector was attached to the lumen. Aspiration of the lumen was performed to remove any air and confirm blood return. Blood return was verified and each lumen was flushed with 10 ml of sterile normal saline in a pulsatile fashion. The each lumen was clamped with the last pulsed flush. Total sterile flushes used for the insertion was 5 10 ml syringes, 2 from the kit. Finally, the insertion site was cleaned with chlorhexidine, and the catheter was secured using a StatLock. The site was covered with a Tegaderm CHG Dressing and disinfecting caps were applied. Baseline arm circumference was obtained at the insertion site and measured 27 cm. The patient was provided with a patient education handout on PICC line care of infection prevention, heavy lifting restriction, maintaining mobility, and watching for any signs of infection. The primary nurse aware that the PICC line is ready for use.
[2023-08-11] MEDS: Lidocaine 2% (20 ml mdv) 20 ML Vial INFILT (13:59)
--- NOTE | 2023-08-11 14:10 | FLU_PTH ---
PATIENT: DINH SIN LOC: ICU U#:[id number] AGE/SX: 72/M ROOM: [place] [address] RE08/03/[address]: Dr. Radhika Ledezma MD : 1950 BED: 1 DIS: 09/01/2023 SPEC #: [id number] RECD: 08/11/23 14:56 STATUS: SOUT REQ #: [id number] ALVERTO: 08/11/23 14:[address]: Ke Jim DEPT: CYTOLOGY RECD BY: Christie Espana ENTERED: 08/12/23 10:02 SP TYPE: Fluid OTHR DR: MD Dr. Jose Owusu MD Dr. Derek Brown, DO Dr. Eric Jopperi, DO Dr. Edward Matheis, MD Dr. Gautam Baskaran, MD Dr. Yordanos Habtegebriel, MD Dr. Hemant Dand, MD Dr. Jeffrey Burkey, MD Dr. Jayaprakas Dasari, MD Dr. Kimber Foust, MD Dr. Lamia Aljundi, MD Dr. Mark Tereletsky, DO Dr. Nagapradee Nagajothi, MD Dr. Pritam Ghosh, MD Dr. Pavan Irukulla, MD Dr. Saad Farooqi, MD Dr. Vikram Anand, MD Dr. William Haden, MD Tissues: THORACIC FLUID Procedures: Special Stain Group II Surgery Specimen Level IV Cytospin Fluid HEADER OPERATION: Thoracentesis PRE-OP DIAGNOSIS: Pleural effusion TISSUE SUBMITTED: Thoracentesis fluid for cytology DIAGNOSIS CYTOLOGY Thoracentesis fluid for cytology (cytospin and cell block): Malignant cells present derived from non-small cell carcinoma, favor adenocarcinoma. See comment. LAWRENCE/mr 08/15/23 COMMENT Immunohistochemistry ([id number]) supports the above diagnosis. IHC profile is noncontributory for primary site of origin. Please also make reference to additional specimen [id number], right middle lobe fluid with diagnosis of negative for malignant cells. Clinical correlation and appropriate follow up are necessary. CYTOLOGY STUDY Slides are reviewed. CYTOLOGY GROSS Received is 80 ml of yellow cloudy fluid labeled with the patient's name and and designated per the requisition as Thoracentesis fluid. Submitted for cytology preparation including cell block. Mr 08/12/23 TC:0 CPT: 04649 ,41781
--- NOTE | 2023-08-11 14:19 | PCM.OP.PRO ---
Procedure Report Date of Procedure: 08/11/23 Assessment & Plan Assessment/Plan (1) Pleural effusion, right: PLAN: PROCEDURE: Ultrasound Guided Thoracentesis ORDERING PROVIDER: Dr. Munoz INDICATION: Male, 72 years old. Right pleural effusion. PROVIDER: RENEE Dye PROCEDURE: The risks, benefits, and alternatives to the procedure were explained to the patient's . The specific risks of bleeding, infection, and pneumothorax requiring chest tube insertion were discussed and accepted. Written informed consent was obtained. The patient was placed a left lateral decubitus position. Ultrasonographic evaluation of the bilateral lower pleural spaces was carried out. An adequate pocket was identified in the right lower pleural space.The overlying skin was prepped and draped in sterile fashion. 2% lidocaine was administered subcutaneously for local anesthesia. Under ultrasound guidance, a 5-S[place] Arabian thoracentesis needle/catheter system was advanced into the right posterior lower pleural fluid collection. 1200 ml of cloudy clay colored fluid was drained. 100 mL of this fluid was collected and sent to laboratory for analysis. The catheter was removed, and a sterile dressing was applied. The patient tolerated the procedure well. A chest x-ray was ordered. IMPRESSION: Successful ultrasound-guided thoracentesis of right pleural effusion. Procedures Radiology Radiology US Procedures: [id number] Thoracentesis
--- NOTE | 2023-08-11 14:30 | RAD_ITS ---
STUDY: X-RAY CHEST REASON FOR EXAM: Male, 72 years old. Post thoracentesis TECHNIQUE: AP inspiration expiration views. COMPARISON: Comparison is made with prior study dated August 11, 2023 earlier in the day. FINDINGS: The patient is status post right thoracentesis. There is no evidence of pneumothorax. RAD/Chest Insp/Exp 2 View IMPRESSION: Status post right thoracentesis. No evidence of pneumothorax. Electronically Signed: Jack Garcia MD at 15:09 EDT ,
--- NOTE | 2023-08-11 15:28 | CHAPLAIN ---
Type of Pastoral Visit ___ Initial Visit _x__ Follow-up Visit ___ On-call Visit ___ General Patient Visit ___ Spiritual Assessment ___ Family Conference ___ Bereavement ___ Rapid Response ___ Code Blue ___ Other (describe below) Pastoral Care Referral From ___ Patient _x__ Family ___ Nurse ___ Physician ___ Tennis Desk Team Member ___ Computer Systems Architect ___ Other (describe below) Sacrament/Intervention _x__ Active listening ___ Anointing ___ Muslim ___ Bereavement ___ Communion ___ [place] exploration ___ ___ Life review _x__ Prayer ___ Reconciliation ___ Sacrament of Sick _x__ Supportive presence ___ Wedding ___ Other (describe below) Pastoral Comments spouse of this patient was standing alone in the hallway and was offered support from this transit planner; pt was previously seen but is not intubated; spouse indicates a desire for spiritual support and was given opportunity to express her thoughts and feelings; stepped into patient's room and conversation continued quietly; offered to pray for the patient and that was welcomed; offer of ongoing support given as well
[2023-08-11 15:52] LABS: Body Fluid Mononuclear WBC # 0.183 10^3/uL; Body Fluid Mononuclear WBC % 84.4 %; Body Fluid Polynuclear WBC # 0.034 10^3/uL; Body Fluid Polynuclear WBC % 15.6 %; Body Fluid Total Cells Counted 0.238 10^3/ul; LDH,Body Fluid 142 Units/L (Not Establ.); Protein, Body Fluid 2.3 g/dL (Not Establ.); White Blood Count/Body Fluid 0.217 10^3/uL
[2023-08-11 16:21] LABS: Glucose, Body Fluid 209 mg/dL (40-70)
[2023-08-11] MEDS: Potassium Chloride Oral Tablet 20 MEQ 40 MEQ PO (16:52)
[2023-08-11] MEDS: fentaNYL drip 100 ML 12.5 MCG CONT INF (16:53)
[2023-08-11] MEDS: Propofol 10MG/Ml 1,000 MG/100 ML Bottle 10.1 MG CONT INF (16:56)
[2023-08-11 17:41] LABS: Vancomycin, Trough Level 29.3 ug/mL (5.0-15.0)
--- NOTE | 2023-08-11 17:46 | PCM.RX.CS ---
Consult Antibiotic Management Pharmacy has been consulted to manage selected antibiotic: Vancomycin Type of Intervention Type of Consult: Follow-up Suspected Infection Suspected Infection: Pneumonia Prior Doses of Antibiotics Prior Doses of Antibiotics Received/Current Regimen: Vancomycin 750 mg IV given 08/09 @ 1830 Labs Labs: Sodium 134 mmol/L (136-145) L 08/11/23 03:01 Potassium 3.9 mmol/L (3.5-5.1) 08/11/23 03:01 Chloride 85 mmol/L (98-107) L 08/11/23 03:01 Carbon Dioxide 34.0 mmol/L (21.0-32.0) H 08/11/23 03:01 Anion Gap 15 (5-15) 08/11/23 03:01 BUN 120 mg/dL (7-18) H* 08/11/23 03:01 Creatinine 3.93 mg/dL (0.70-1.30) H 08/11/23 03:01 Est GFR (MDRD) Af Amer 20 mL/min (>60) L 08/11/23 03:01 Est GFR (MDRD) Non-Af 16 mL/min (>60) L 08/11/23 03:01 BUN/Creatinine Ratio 30.5 RATIO (10-20) H 08/11/23 03:01 Glucose 201 mg/dL (74-106) H 08/11/23 03:01 Vancomycin Trough 29.3 ug/mL (5.0-15.0) H 08/11/23 16:45 Microbiology Microbiology: Microbiology 08/11/23 15:14 Fluid - Pleural (Lung) Gram Stain - Final 08/11/23 09:59 Sputum, Induced/Lukens Gram Stain - Final 08/04/23 00:00 Sputum, Expectorated/Coughed Gram Stain - Final 08/04/23 00:00 Sputum, Expectorated/Coughed Respiratory Culture - Final 08/03/23 21:57 Urine, Random Legionella Antigen - Final 08/03/23 21:57 Urine, Random Streptococcus pneumoniae Antigen (M - Final 08/03/23 18:30 Mucosa - Nose SARS-CoV-2, Influenza & RSV (PCR) - Final Dosing Weight Weight used for dosin.8 kg Estimated Creatinine Clearance Estimated Creatinine Clearance: ~17 Goal Trough Goal Trough: 15-20 mcg/mL Pharmacy Plan for Drug Dosing Pharmacy Plan for Drug Dosing: Vancomycin trough = 29.3, hold vancomycin for now, random level in ~ 18 hours Pharmacy Service will continue to monitor and adjust dosing as required. Follow-Up Labs Follow-Up Labs: Trough: Vancomycin Date/Time Labs Ordered Labs to be done on [date and time ordered]: 08/12/23 @ 1200
[2023-08-11 18:17] LABS: Lymphocytes 26 %; Macrophages 35 %; Mesothelial Cells 6 %; Monocytes 2 %; Neutrophil (Segs) 11 %; Other Cell Type/BF 20 %
[2023-08-11 18:20] LABS: Appearance/Body Fluid CLEAR; Color/Body Fluid YELLOW
[2023-08-11 18:21] LABS: Body Fluid QC Type(s) BF1Q; Red Cell Count/Body Fluid 719 /mm3
[2023-08-11 18:22] LABS: Source- Body Fluid THORACENTESIS
[2023-08-11] MEDS: Chlorhexidine 15 ML PO (20:08)
[2023-08-11] MEDS: Atorvastatin Calcium 40 MG Tablet PO (20:09)
[2023-08-11 20:48] LABS: Partial Thromboplast Time 53.4 Seconds (24.1-36.2)
--- NOTE | 2023-08-11 20:50 | NURSING ---
This RN unable to flush OG for medication administration. OG tubing seems to be clogged. Unable to aspirate gastric contents or push flush. OG removed at this time w/ Thomas. Dev RN at bedside. End of tubing kinked. New OG placed and KUB ordered per policy.
--- NOTE | 2023-08-11 20:53 | RAD_ITS ---
STUDY: X-RAY - ABDOMEN/PELVIS REASON FOR EXAM: Male, 72 years old. OG placement TECHNIQUE: KUB COMPARISON: None. FINDINGS: Left lower lobe consolidation and small pleural effusion. There is an unremarkable bowel gas pattern. There is no demonstrated free abdominal air. Oral gastric tube is seen with tip in the proximal to mid gastric fundus Normal soft tissue structures. Normal visualized osseous structures. RAD/Abdomen Single View (Portable) IMPRESSION: Orogastric tube noted with tip in the proximal to mid gastric fundus. Electronically Signed: David Dalton MD at 22:02 EDT ,
[2023-08-11 21:07] LABS: Anti-Glomerular Basement Memb < 0.2 units (0.0-0.9); Complement C3 148 mg/dL (82-167); Cytoplasmic Ab (C-ANCA) <1:20 titer (Neg:<1:20); Perinuclear Ab (P-ANCA) <1:20 titer (Neg:<1:20)
[2023-08-12] VITALS (48 sets, daily range): BP systolic 53–108; BP diastolic 54–67; PULSE 62–77; RESP 9–18; TEMP 35.9–36.3; O2SAT 88–100; BMI 28.9
--- NOTE | 2023-08-12 | FLU_PTH ---
PATIENT: DINH SIN LOC: ICU U#:[id number] AGE/SX: 72/M ROOM: [place] [address] RE08/03/[address]: Dr. Radhika Ledezma MD : 1950 BED: 1 DIS: 09/01/2023 SPEC #: [id number] RECD: 08/12/23 11:49 STATUS: SOUT REQ #: [id number] ALVERTO: 08/12/23 00:[address]: Ke Jim DEPT: CYTOLOGY RECD BY: Christie Espana ENTERED: 08/12/23 13:46 SP TYPE: Fluid OTHR DR: MD Dr. Jose Owusu MD Dr. Derek Brown, DO Dr. Eric Jopperi, DO Dr. Edward Matheis, MD Dr. Gautam Baskaran, MD Dr. Yordanos Habtegebriel, MD Dr. Hemant Dand, MD Dr. Jeffrey Burkey, MD Dr. Jayaprakas Dasari, MD Dr. Kimber Foust, MD Dr. Lamia Aljundi, MD Dr. Mark Tereletsky, DO Dr. Nagapradee Nagajothi, MD Dr. Pritam Ghosh, MD Dr. Pavan Irukulla, MD Dr. Saad Farooqi, MD Dr. Vikram Anand, MD Dr. William Haden, MD Tissues: Bronchus of right middle lobe Procedures: Special Stain Group II Surgery Specimen Level IV Cytospin Fluid HEADER OPERATION: Bronchoscopy PRE-OP DIAGNOSIS: Non-ST elevated myocardial infarction, Pneumonia TISSUE SUBMITTED: Right middle lobe, washings DIAGNOSIS CYTOLOGY Right middle lobe, washing fluid (cytospin and cell block): Negative for malignant cells. See comment. LAWRENCE/ 08/15/2023 COMMENT Special stain for acid fast bacilli, fungi and Pneumocystis carinii are negative for organisms; matched controls are appropriate. Please make reference to additional specimen [id number] Thoracentesis fluid for cytology diagnosis of malignant cells present derived non-small cell carcinoma, favor adenocarcinoma. CYTOLOGY STUDY Slides are reviewed. CYTOLOGY GROSS Received is 20 ml of red cloudy fluid labeled with the patient's name and and designated per the requisition as Right middle lobe. Submitted for cytology preparation including cell block. Mr 08/12/23 TC:5 CPT: 75105 ,57593,[id number]
[2023-08-12] MEDS: 0.9% Saline Lock 10 ML Syringe IV ×5 (00:12→19:58)
[2023-08-12] MEDS: fentaNYL drip 100 ML 12.5 MCG CONT INF (00:12)
[2023-08-12] MEDS: Propofol 10MG/Ml 1,000 MG/100 ML Bottle 10.1 MG CONT INF (02:50)
[2023-08-12 03:24] LABS: Absolute Lymphocyte Count 0.63 X10^3/uL (0.83-4.51); Absolute Neutrophil Count 11.6 X10^3/uL (2.0-7.7); Basophil# 0.02 X10^3/uL; Basophil% 0.2 % (0-1); Hematocrit 30.7 % (40-54); Hemoglobin 9.5 g/dL (13.0-16.5); Lymphocyte # 0.63 X10^3/ul (0.83-4.51); Lymphocyte % 4.9 % (19-41); Mean Corp Hgb Conc 30.9 g/dL (32-36); Mean Corpuscular Hgb 25.5 pg (27.0-32.0); Mean Corpuscular Volume 82.5 fL (80-94); Mean Platelet Vol. 11.8 fl (6.2-12.0); Monocyte# 0.61 X10^3/uL; Monocyte% 4.7 % (0-10); NRBC Flagged by Analyzer 0 % (0-5); Neutrophil # 11.62 X10^3/uL (2.7-7.7); Neutrophil % 89.6 % (47-70); Platelet Count 425 K/mm3 (150-450); RBC Distribution Width CV 15.9 % (11.6-14.6); RBC Distribution Width SD 47.4 fl (35.1-43.9); Red Blood Count 3.72 M/mm3 (4.6-6.2)
[2023-08-12 03:47] LABS: Partial Thromboplast Time 82.9 Seconds (24.1-36.2)
[2023-08-12 03:57] LABS: Anion Gap 15 (5-15); BUN 147 mg/dL (7-18); BUN/Creat Ratio 29.5 RATIO (10-20); Calcium,Total 9.1 mg/dL (8.5-10.1); Chloride 88 mmol/L (98-107); Creatinine, Serum 4.98 mg/dL (0.70-1.30); EST Glomerular Filtration Rate 12 mL/min (>60); Est Glom Filt Rate - Afr Amer 15 mL/min (>60); Estimated Creatinine Clearance 13.65 ml/min; Glucose 209 mg/dL (74-106); Potassium 3.8 mmol/L (3.5-5.1); Sodium Level 137 mmol/L (136-145)
[2023-08-12] MEDS: Piperacil/Tazobactam 3.375 GM in 0.9% Normal Saline (50mL MB+) 50 ML IV ×3 (04:41→22:53)
--- NOTE | 2023-08-12 07:01 | PN.CC_ITS ---
Assessment & Plan Assessment/Plan (1) Non-STEMI (non-ST elevated myocardial infarction): PLAN: Plan RECOMMENDATIONS: 1. Continue assist-control mode mechanical ventilation. Wean FiO2 and PEEP for saturations greater than 90%. 2. Continue empiric antimicrobials. 3. Continue weight-based heparin infusion for now. 4. Continue corticosteroids. 5. Obtain follow-up chest x-ray today. 6. Proceed with bronchoscopy later this morning. 7. Continue appropriate GI prophylaxis. IMPRESSIONS: 1. Acute hypoxemic respiratory failure Unclear etiology. Initially, the patient's respiratory decompensation was felt to be a consequence of decompensated heart failure with preserved ejection fraction in the setting of an NSTEMI. Subsequent attempts at volume optimization led to no significant improvement in his respiratory status. Other potential etiologies include pulmonary embolism along with infectious versus inflammatory pneumonia. As such, the patient has been maintained on antimicrobials and pulse dose steroids. Upon intubation, the patient was noted to have a significant amount of bleeding from his endotracheal tube, raising the suspicion for diffuse alveolar hemorrhage as well. Accordingly, we will plan to proceed with bronchoscopy later today. The patient underwent thoracentesis as well from the right hemithorax which appeared to be transudative in nature. Cardiac catheterization has already been completed, for which medical therapy was recommended. For now, we will plan to continue current supportive measures and attempt to wean FiO2 and PEEP to maintain saturations at or above 90%. 2. NSTEMI/acute decompensated heart failure with preserved ejection fraction Management per cardiology. 3. Acute on chronic kidney disease Nephrology is following. The patient's worsening renal insufficiency is likely multifactorial and related to prerenal etiology coupled with possible contrast nephropathy from recent catheterization and CTA chest. I do suspect that given the progression in the patient's renal insufficiency, he will likely require hemodialysis. TIME: 38 minutes, independent of procedures, was spent addressing the patient's acute hypoxemic respiratory failure, NSTEMI, acute decompensated heart failure with preserved ejection fraction, acute on chronic kidney disease, review of all data and collaboration with care team. Subjective Subjective The patient was seen and examined at the bedside this morning. Events from the last 24 hours have been reviewed. The patient is currently afebrile, hemodynamically stable and maintaining appropriate oxygen saturations on assist- control mode mechanical ventilation with an FiO2 requirement of 60% and PEEP of 5. Today is ventilator day #2. The patient underwent successful ultrasound-guided thoracentesis of the right hemithorax with 1.2 L of fluid removed. There are plans to proceed with bronchoscopy later this morning. White count is elevated at 13,000. BUN and creatinine are both elevated at 147 and 4.98, respectively. The patient remains on a weight-based heparin infusion, antimicrobials and steroids. Per my discussion with nephrology this morning, the patient will likely require dialysis support. Objective Data Objective Data The patient's most recent lab work, culture data and imaging studies have all been personally reviewed. Surface echocardiogram demonstrated normal LV size and function with an ejection fraction of 55%. Doppler study was positive for right-sided DVT. Sputum and pleural fluid cultures are pending. Vital Signs: Vital Signs Temp Pulse Resp BP Pulse Ox O2 Del Method O2 Flow Rate 97.0 F L 69 16 90/62 91 Mechanical Ventilator 60 08/12/23 03:00 08/12/23 07:00 08/12/23 07:00 08/12/23 07:00 08/12/23 07:00 08/12/23 07:00 08/10/23 20:35 FiO2 60 08/12/23 07:00 Oxygen Flow Rate (L/min) 60 Oxygen Delivery Method Mechanical Ventilator Weight: 179 lb 14.355 oz Body Mass Index (BMI) 28.9 Intake & Output: Intake and Output for Last 24 Hours 08/10/23 08/11/23 08/12/23 23:59 23:59 23:59 Intake Total 634.23 / 634.23 815.62 / 838.22 277.92 / 277.92 Output Total 1550 / 1550 1450 / 1450 89 / 89 Balance -915.77 / -915.77 -634.38 / -611.78 188.92 / 188.92 Lab / Micro Data Attestation: I reviewed the patient's lab results. 08/12/23 03:15 08/12/23 03:15 Labs: Laboratory Results - last 24 hr 08/09/23 10:40: c-ANCA Antibody <1:20, Atypical p-ANCA <1:20, p-ANCA Antibody <1:20, Glomerular Base Memb Ab < 0.2, Complement C3 148, Complement C4 46 H 08/11/23 03:01: Total Creatine Kinase 75, Triglycerides 202 H 08/11/23 11:55: APTT 87.2 H 08/11/23 15:14: Fluid Source THORACENTESIS, Fluid Color YELLOW, Fluid Appearance CLEAR, Fluid WBC 0.217, Fluid RBC 719, Fluid Tot Cell Count 0.238, Fld Polynuclear WBCs # 0.034, Fld Polynuclear WBCs % 15.6, Fluid Mononuclear WBCs 0.183, Fld Mononuclear WBCs % 84.4, Fluid Neutrophils 11, Fluid Lymphocytes 26, Fluid Monocytes 2, Fluid Macrophages 35, Fld Mesothelial Cells 6, Fluid Other Cells 20, Fl Pathologist Comment May follow, Fluid Glucose 209 H, Fluid Total Protein 2.3, Fluid LDH 142, Fluid Comment 2 SEE COMMENT 08/11/23 16:45: Vancomycin Trough 29.3 H 08/11/23 20:04: APTT 53.4 H 08/12/23 03:15: WBC 13.0 H, RBC 3.72 L, Hgb 9.5 L, Hct 30.7 L, MCV 82.5, MCH 25.5 L, MCHC 30.9 L, RDW Std Deviation 47.4 H, RDW Coeff of Raghavendra 15.9 H, Plt Count 425, MPV 11.8, Immature Gran % (Auto) 0.600, Neut % (Auto) 89.6 H, Lymph % (Auto) 4.9 L, [place] % (Auto) 4.7, Eos % (Auto) 0.0, Baso % (Auto) 0.2, Absolute Neuts (auto) 11.6 H, Absolute Lymphs (auto) 0.63 L, Nucleated RBC % 0, APTT 82.9 H, Sodium 137, Potassium 3.8, Chloride 88 L, Carbon Dioxide 34.0 H, Anion Gap 15, BUN 147 H*, Creatinine 4.98 H, Estim Creat Clear Calc 13.65, Est GFR (MDRD) Af Amer 15 L, Est GFR (MDRD) Non-Af 12 L, BUN/Creatinine Ratio 29.5 H, Glucose 209 H, Calcium 9.1 Micro: Microbiology 08/11/23 15:14 Fluid - Pleural (Lung) Gram Stain - Final 08/11/23 09:59 Sputum, Induced/Lukens Gram Stain - Final 08/04/23 00:00 Sputum, Expectorated/Coughed Gram Stain - Final 08/04/23 00:00 Sputum, Expectorated/Coughed Respiratory Culture - Final 08/03/23 21:57 Urine, Random Legionella Antigen - Final 08/03/23 21:57 Urine, Random Streptococcus pneumoniae Antigen (M - Final 08/03/23 18:30 Mucosa - Nose SARS-CoV-2, Influenza & RSV (PCR) - Final ABG Data ABG results: ABG 08/11/23 10:13 Specimen Type ART Sample Site L Radial pH 7.47 H Bicarbonate Actual 36.1 H Total CO2 38 Base Excess 13 H O2 Saturation 99 O2 % 50.0 ABG pCO2 49.8 H ABG pO2 132 H Abhijit Test Positive Respiration Rate 14 O2 Delivery Device Adult Vent Vent Mode AC Tidal Volume 500.0 POC PEEP 10 Radiography Diagnostic Testing: Radiology Impression Chest X-Ray 08/11/23 08:50 IMPRESSION: Progressive bilateral airspace disease with a small right pleural effusion. The tip of the endotracheal tube is at 6.8 cm proximal to the zack. The tip of the orogastric tube is heading towards the gastroesophageal junction. Electronically Signed: Jack Garcia MD at 10:11 EDT , Chest X-Ray 08/11/23 14:30 IMPRESSION: Status post right thoracentesis. No evidence of pneumothorax. Electronically Signed: Jack Garcia MD at 15:09 EDT , KUB X-Ray 08/11/23 20:53 IMPRESSION: Orogastric tube noted with tip in the proximal to mid gastric fundus. Electronically Signed: David Dalton MD at 22:02 EDT , Physical Exam Const Constitutional Narrative: Intubated, sedated and mechanically ventilated. No ventilator dyssynchrony noted. HEENT normocephalic and head/scalp atraumatic Mouth: endotracheal tube in place and OG tube in place Eyes PERRL, EOMs intact bilaterally and conjunctivae normal Neck supple General: trachea midline Chest inspection of chest normal Resp Auscultation: diminished lung sounds; Negative for rales, rhonchi or wheezes Cardio regular rate, regular rhythm, S1 normal heart sound and S2 normal heart sound GI normal to inspection, nondistended, normoactive bowel sounds Extremity no clubbing, cyanosis or edema Skin no rashes or lesions noted Neuro Sensorium / Orientation: sedated on vent Charges/Coding Procedures Hospitalists Procedures: 54576 Critical Care 1st Hr
[2023-08-12 07:06] LABS: Mucous, Urine 0 SEEN /hpf (<or=2+); Squamous Epithelial Cells - UA 0 SEEN /hpf (0-5)
--- NOTE | 2023-08-12 07:10 | PCM.PN.HOSP ---
Reason for Visit Reason for Visit: Diagnoses Non-ST elevation (NSTEMI) myocardial infarction (08/03/23) Pneumonia, unspecified organism (08/03/23) Pleural effusion, not elsewhere classified (08/03/23) Acute kidney failure, unspecified (08/03/23) Chronic kidney disease, stage 3b (08/03/23) Subjective Subjective Patient was electively intubated the day prior due to worsening respiratory failure. Remained stable on the vent. Patient also underwent successful ultrasound-guided thoracentesis of the right hemithorax with 1.2 L of fluid removed. Plan is for patient to undergo bronchoscopy. Urinalysis obtained came back consistent with cystitis Objective Data Objective Data Vital Signs: Vital Signs Temp Pulse Resp BP Pulse Ox O2 Del Method O2 Flow Rate 97.0 F L 69 16 90/62 91 Mechanical Ventilator 60 08/12/23 03:00 08/12/23 07:00 08/12/23 07:00 08/12/23 07:00 08/12/23 07:00 08/12/23 07:00 08/10/23 20:35 FiO2 60 08/12/23 07:00 Oxygen Flow Rate (L/min) 60 Oxygen Delivery Method Mechanical Ventilator Weight: 81.6 kg Body Mass Index (BMI) 28.9 Intake & Output: Intake and Output for Last 24 Hours 08/10/23 08/11/23 08/12/23 23:59 23:59 23:59 Intake Total 634.23 / 634.23 815.62 / 838.22 297.72 / 297.72 Output Total 1550 / 1550 1450 / 1450 89 / 89 Balance -915.77 / -915.77 -634.38 / -611.78 208.72 / 208.72 Lab / Micro Data 08/12/23 03:15 08/12/23 03:15 Labs: Laboratory Results - last 24 hr 08/09/23 10:40: c-ANCA Antibody <1:20, Atypical p-ANCA <1:20, p-ANCA Antibody <1:20, Glomerular Base Memb Ab < 0.2, Complement C3 148, Complement C4 46 H 08/11/23 03:01: Total Creatine Kinase 75, Triglycerides 202 H 08/11/23 11:55: APTT 87.2 H 08/11/23 15:14: Fluid Source THORACENTESIS, Fluid Color YELLOW, Fluid Appearance CLEAR, Fluid WBC 0.217, Fluid RBC 719, Fluid Tot Cell Count 0.238, Fld Polynuclear WBCs # 0.034, Fld Polynuclear WBCs % 15.6, Fluid Mononuclear WBCs 0.183, Fld Mononuclear WBCs % 84.4, Fluid Neutrophils 11, Fluid Lymphocytes 26, Fluid Monocytes 2, Fluid Macrophages 35, Fld Mesothelial Cells 6, Fluid Other Cells 20, Fl Pathologist Comment May follow, Fluid Glucose 209 H, Fluid Total Protein 2.3, Fluid LDH 142, Fluid Comment 2 SEE COMMENT 08/11/23 16:45: Vancomycin Trough 29.3 H 08/11/23 20:04: APTT 53.4 H 08/12/23 03:15: WBC 13.0 H, RBC 3.72 L, Hgb 9.5 L, Hct 30.7 L, MCV 82.5, MCH 25.5 L, MCHC 30.9 L, RDW Std Deviation 47.4 H, RDW Coeff of Raghavendra 15.9 H, Plt Count 425, MPV 11.8, Immature Gran % (Auto) 0.600, Neut % (Auto) 89.6 H, Lymph % (Auto) 4.9 L, [place] % (Auto) 4.7, Eos % (Auto) 0.0, Baso % (Auto) 0.2, Absolute Neuts (auto) 11.6 H, Absolute Lymphs (auto) 0.63 L, Nucleated RBC % 0, APTT 82.9 H, Sodium 137, Potassium 3.8, Chloride 88 L, Carbon Dioxide 34.0 H, Anion Gap 15, BUN 147 H*, Creatinine 4.98 H, Estim Creat Clear Calc 13.65, Est GFR (MDRD) Af Amer 15 L, Est GFR (MDRD) Non-Af 12 L, BUN/Creatinine Ratio 29.5 H, Glucose 209 H, Calcium 9.1 Micro: Microbiology 08/11/23 15:14 Fluid - Pleural (Lung) Gram Stain - Final 08/11/23 09:59 Sputum, Induced/Lukens Gram Stain - Final 08/04/23 00:00 Sputum, Expectorated/Coughed Gram Stain - Final 08/04/23 00:00 Sputum, Expectorated/Coughed Respiratory Culture - Final 08/03/23 21:57 Urine, Random Legionella Antigen - Final 08/03/23 21:57 Urine, Random Streptococcus pneumoniae Antigen (M - Final 08/03/23 18:30 Mucosa - Nose SARS-CoV-2, Influenza & RSV (PCR) - Final ABG Data ABG results: ABG 08/11/23 10:13 Specimen Type ART Sample Site L Radial pH 7.47 H Bicarbonate Actual 36.1 H Total CO2 38 Base Excess 13 H O2 Saturation 99 O2 % 50.0 ABG pCO2 49.8 H ABG pO2 132 H Abhijit Test Positive Respiration Rate 14 O2 Delivery Device Adult Vent Vent Mode AC Tidal Volume 500.0 POC PEEP 10 Radiography Diagnostic Testing: Radiology Impression Chest X-Ray 08/11/23 08:50 IMPRESSION: Progressive bilateral airspace disease with a small right pleural effusion. The tip of the endotracheal tube is at 6.8 cm proximal to the zack. The tip of the orogastric tube is heading towards the gastroesophageal junction. Electronically Signed: Jack Garcia MD at 10:11 EDT , Chest X-Ray 08/11/23 14:30 IMPRESSION: Status post right thoracentesis. No evidence of pneumothorax. Electronically Signed: Jack Garcia MD at 15:09 EDT , KUB X-Ray 08/11/23 20:53 IMPRESSION: Orogastric tube noted with tip in the proximal to mid gastric fundus. Electronically Signed: David Dalton MD at 22:02 EDT , Physical Exam Narrative GENERAL: Sedated on the vent HEENT: Atraumatic; normocephalic EYES; Anicteric, Normal Conjunctiva NECK; supple, normal thyroid, RESPIRATORY: Diminished to auscultation CARDIOVASCULAR: Regular S1 S2, GI: soft, normoactive bowel sounds, : No Renal angle tenderness; EXTREMITIES: No edema, no clubbing, MUSCULOSKELETAL: no muscle wasting NEURO: Sedated on the vent SKIN: No Rash PSYCH; Flat affect Assessment & Plan Assessment/Plan (1) Non-STEMI (non-ST elevated myocardial infarction): PLAN: Plan Patient is a 72-year-old gentleman admitted with shortness of breath was found to have elevated troponin consistent with acute non-STEMI treatment initiated per protocol admitted to the intensive care unit. Patient was found to be in acute respiratory failure resulting in the use of BiPAP 1. Acute non-STEMI ? Patient admitted to the intensive care unit managed per protocol with heparin, aspirin added statin therapy and beta-blockers with consultation placed to cardiology. Plan is for patient to undergo left heart catheterization ? 08/09/2023 cardiac catheterization demonstrated Normal left main coronary artery, First diagonal vessel with 90% long proximal stenosis, Left anterior descending artery with mild disease ,Nondominant left circumflex artery with first obtuse marginal branch with 70% stenosis, Totally occluded right coronary artery with [id number] collaterals ,Low normal left ventricular ejection fraction noted on echocardiogram with dilated right ventricle 2. Acute hypoxic respiratory failure ? Multifactorial including acute congestive heart failure, suspected PE as well as pneumonia patient placed on noninvasive ventilation Airvo. Consult placed to manager transfer notes and recommendations reviewed ? 08/09/2023.Patient seen remains on noninvasive ventilation on BiPAP. Given his significant oxygen requirement decision was made for patient to undergo CTA of the chest to evaluate possible clot burden. ? 08/10/2023; CTA of the chest demonstrated evidence of pulmonary embolism, bilateral pulmonary infiltrates as well as bilateral pleural effusion right greater than left. ? 08/11/2023; respiratory status continues to worsen plan is for patient to undergo elective intubation ? 08/12/2023; Patient was electively intubated the day prior due to worsening respiratory failure. Remained stable on the vent. Plan is for patient to undergo bronchoscopy 3. Acute VTE (RLE DVT and PE) -Patient underwent VQ scan which was nonconclusive lower extremity duplex demonstrated acute right lower extremity DVT. Patient is on heparin The estimated ejection fraction is 55 %. Unable to assess diastolic dysfunction. Moderately dilated right ventricle. Trivial mitral valve insufficiency. ? 08/10/2023 CTA demonstrated evidence of pulmonary embolism (There is evidence of a intraluminal filling defects in small branches in the right lower lobe suggestive of small pulmonary emboli. No big thrombus is seen.) Patient remains on apixaban plan is to hold and transition to heparin for patient to undergo ultrasound-guided thoracocentesis 4. Acute congestive heart failure with preserved ejection fraction -Echo from 08/04/2023 demonstrated EF of 55%. Patient management strict input and output, fluid restriction as well as diuretic therapy with furosemide 5. Bilateral pleural effusions right greater than left with diffuse bilateral -Plan is for patient to undergo ultrasound-guided thoracocentesis. Patient systemic anticoagulation with apixaban to be held restarted on heparin ? 08/12/2023; Patient also underwent successful ultrasound-guided thoracentesis of the right hemithorax with 1.2 L of fluid removed. . 6. Suspected pneumonia CT of the chest demonstrated bilateral pulmonary infiltrates involving both upper and lower lobes. Patient remains on broad-spectrum antibiotic therapy 7. Chronic kidney disease stage IIIb ? Monitoring kidney function ? 08/11/2023; kidney function continues to worsen following diagnostician as well as diuretic therapy nephrology on board 8. Presence of solitary kidney ? 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 Hypokalemia ? Corrected per protocol repeat labs ordered for subsequent management 10. Hypertension - Blood pressure controlled, patient is on amlodipine continue also on chlorthalidone held 11. Acute cystitis ? Patient remains on broad-spectrum antibiotics Time spent in the patient's overall evaluation,decision-making process, review of diagnostic data, adjustment of management, discussion with other providers, nursing nursing and ancillary staff involved in patient's care documentation, 52 Minutes
[2023-08-12 07:12] LABS: Color, Urine Amber (Yellow); Glucose, Dipstick Normal (Normal); Ketone-Dipstick 5 mg/dl (Negative); Leukocyte Esterase-Dipstick 100 /ul (Negative); Nitrite-Dipstick Negative (Negative); Occult Blood-Urine 250 /ul (Negative); Protein-Dipstick 30 mg/dl (Negative); Urine Bilirubin Dipstick Negative (Negative); Urine Clarity Cloudy (Clear); Urine Urobilinogen Normal (Normal)
[2023-08-12 07:22] LABS: Bacteria 2+ /hpf (None Seen); Red Blood Cells-Urine > 100 SEEN /hpf (0-5); White Blood Cells 10-25 SEEN /hpf (0-5)
--- NOTE | 2023-08-12 09:08 | RAD_ITS ---
STUDY: X-RAY CHEST REASON FOR EXAM: Male, 72 years old. Respiratory Failure TECHNIQUE: Single AP portable view of the chest. COMPARISON: Comparison is made with prior study dated August 11, 2023. FINDINGS: An endotracheal tube is in situ. The tip is at 5.5 cm proximal to the zack. An orogastric tube is seen with the tip in the fundal portion of the stomach. A right-sided PICC line catheter is seen with tip at the junction of the superior vena cava and right atrium. Stable airspace disease in the left lung. Since prior study, there has been a mild degree of increased markings at the right lung base. The patient is status post right thoracentesis. Blunting of the left costophrenic angle. Normal size heart. Normal mediastinum and salazar. Normal visualized pulmonary arteries. Normal visualized aortic arch and descending thoracic aorta. Normal visualized thoracic spine. Normal visualized ribs, clavicles, and shoulders. There is no demonstrated abnormality of the visualized soft tissue structures of the upper abdomen. RAD/Chest 1 View (Portable) IMPRESSION: The support tubes are in good position. There is blunting of the left costo phrenic angle. Stable infiltrate in the left lung. Since prior study, there has been increased markings at the right lung base. Electronically Signed: Jack Garcia MD at 9:27 EDT ,
[2023-08-12] MEDS: Chlorhexidine 15 ML PO ×2 (09:38→22:52)
[2023-08-12] MEDS: fentaNYL drip 100 ML 10 MCG CONT INF ×2 (09:39→19:39)
[2023-08-12] MEDS: Pantoprazole Sodium 40 MG in 0.9% Normal Saline (100mL MB+) 100 ML 330 MG IV (09:51)
[2023-08-12] MEDS: Propofol 10MG/Ml 1,000 MG/100 ML Bottle 9.8 MG CONT INF ×3 (09:59→20:54)
--- NOTE | 2023-08-12 11:09 | PN.RENAL_ITS ---
Subjective Subjective remains on vent. No overnight events Objective Data Objective Data Vital Signs: Vital Signs Temp Pulse Resp BP Pulse Ox O2 Del Method O2 Flow Rate 97.0 F L 74 16 93/64 90 Mechanical Ventilator 60 08/12/23 03:00 08/12/23 09:16 08/12/23 09:16 08/12/23 08:00 08/12/23 09:16 08/12/23 08:27 08/10/23 20:35 FiO2 60 08/12/23 09:16 Oxygen Flow Rate (L/min) 60 Oxygen Delivery Method Mechanical Ventilator Weight: 81.6 kg Body Mass Index (BMI) 28.9 Intake & Output: Intake and Output for Last 24 Hours 08/10/23 08/11/23 08/12/23 23:59 23:59 23:59 Intake Total 634.23 / 634.23 815.62 / 838.22 425.09 / 425.09 Output Total 1550 / 1550 1450 / 1450 89 / 89 Balance -915.77 / -915.77 -634.38 / -611.78 336.09 / 336.09 Lab / Micro Data 08/12/23 03:15 08/12/23 03:15 Labs: Laboratory Results - last 24 hr 08/09/23 10:40: c-ANCA Antibody <1:20, Atypical p-ANCA <1:20, p-ANCA Antibody <1:20, Glomerular Base Memb Ab < 0.2, Complement C3 148, Complement C4 46 H 08/11/23 11:55: APTT 87.2 H 08/11/23 15:14: Fluid Source THORACENTESIS, Fluid Color YELLOW, Fluid Appearance CLEAR, Fluid WBC 0.217, Fluid RBC 719, Fluid Tot Cell Count 0.238, Fld Polynuclear WBCs # 0.034, Fld Polynuclear WBCs % 15.6, Fluid Mononuclear WBCs 0 .183, Fld Mononuclear WBCs % 84.4, Fluid Neutrophils 11, Fluid Lymphocytes 26, Fluid Monocytes 2, Fluid Macrophages 35, Fld Mesothelial Cells 6, Fluid Other Cells 20, Fl Pathologist Comment May follow, Fluid Glucose 209 H, Fluid Total Protein 2.3, Fluid LDH 142, Fluid Comment 2 SEE COMMENT 08/11/23 16:45: Vancomycin Trough 29.3 H 08/11/23 20:04: APTT 53.4 H 08/12/23 03:15: WBC 13.0 H, RBC 3.72 L, Hgb 9.5 L, Hct 30.7 L, MCV 82.5, MCH 25.5 L, MCHC 30.9 L, RDW Std Deviation 47.4 H, RDW Coeff of Raghavendra 15.9 H, Plt Count 425, MPV 11.8, Immature Gran % (Auto) 0.600, Neut % (Auto) 89.6 H, Lymph % (Auto) 4.9 L, [place] % (Auto) 4.7, Eos % (Auto) 0.0, Baso % (Auto) 0.2, Absolute Neuts (auto) 11.6 H, Absolute Lymphs (auto) 0.63 L, Nucleated RBC % 0, APTT 82.9 H, Sodium 137, Potassium 3.8, Chloride 88 L, Carbon Dioxide 34.0 H, Anion Gap 15, BUN 147 H*, Creatinine 4.98 H, Estim Creat Clear Calc 13.65, Est GFR (MDRD) Af Amer 15 L, Est GFR (MDRD) Non-Af 12 L, BUN/Creatinine Ratio 29.5 H, Glucose 209 H, Calcium 9.1 08/12/23 06:56: Urine Color Elisa, Urine Clarity Cloudy, Urine pH 5.0, Ur Specific [place] 1.020, Urine Protein 30 H, Urine Glucose (UA) Normal, Urine Ketones 5 H, Urine Occult Blood 250 H, Urine Nitrite Negative, Urine Bilirubin Negative, Urine Urobilinogen Normal, Ur Leukocyte Esterase 100 H, Urine RBC > 100 SEEN, Urine WBC 10-25 SEEN, Ur Squamous Epith Cells 0 SEEN, Urine Bacteria 2+, Urine Mucus 0 SEEN Micro: Microbiology 08/11/23 15:14 Fluid - Pleural (Lung) Gram Stain - Final 08/11/23 09:59 Sputum, Induced/Lukens Gram Stain - Final 08/04/23 00:00 Sputum, Expectorated/Coughed Gram Stain - Final 08/04/23 00:00 Sputum, Expectorated/Coughed Respiratory Culture - Final 08/03/23 21:57 Urine, Random Legionella Antigen - Final 08/03/23 21:57 Urine, Random Streptococcus pneumoniae Antigen (M - Final 08/03/23 18:30 Mucosa - Nose SARS-CoV-2, Influenza & RSV (PCR) - Final Radiography Diagnostic Testing: Radiology Impression Chest X-Ray 08/11/23 14:30 IMPRESSION: Status post right thoracentesis. No evidence of pneumothorax. Electronically Signed: Jack Garcia MD at 15:09 EDT , KUB X-Ray 08/11/23 20:53 IMPRESSION: Orogastric tube noted with tip in the proximal to mid gastric fundus. Electronically Signed: David Dalton MD at 22:02 EDT , Chest X-Ray 08/12/23 09:08 IMPRESSION: The support tubes are in good position. There is blunting of the left costo phrenic angle. Stable infiltrate in the left lung. Since prior study, there has been increased markings at the right lung base. 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 Terry (after surgery, his baseline creatinine has been around 2.0), presented to the emergency room on 08/02 with complaints of shortness of breath with exertion, admitted for non-STEMI, suspected pneumonia. - TRENA superimposed on CKD; baseline creatinine around 2.0. Acute renal failure was felt to be related to cardiorenal syndrome however also concern for vasculitis therefore sent off serologies. Serology results: p-ANCA, c-ANCA, double-stranded DNA, glomerular basement membrane antibody, C3 all normal. C4 complement slightly elevated at 46. Quite possibly TRENA from ischemic ATN. SCr 2 on admission and for few days SCr ranging around 2.4-2.6mg/dL even while on lasix gtt. 08/09 SCr 3.02 and lasix gtt stopped. 08/10 SCr up to 3.93, BUN 120 and UOP noted to be declining. Today SCr 4.98, BUN 147. Potassium normal, bicarb improved to 34. Urine output overnight only around 90 mL. Patient is heading towards needing renal replacement therapy. I had lengthy discussion today with patient's and daughter regarding patient's current renal function. We discussed dialysis, role of dialysis, risks and benefits of dialysis. Patient and daughter in agreement with starting renal replacement therapy. Temporary hemodialysis catheter to be placed and patient will begin dialysis. Blood pressures are on the low side. Patient had not been on any pressors during this hospitalization. We will stop amlodipine. He is currently on metoprolol with holding parameters. For patient's first dialysis session he will not have any fluid removal. Will likely plan for dialysis again tomorrow. - Acute hypoxemic respiratory failure with unclear etiology--> had been requiring high flow O2, started on IV steroids with not much improvement therefore discussion with patient 08/10 regarding intubation with attempt for thoracentesis/bronchoscopy. Patient agreeable. Thoracentesis 08/10 with 1.2L off. Patient had significant amount of bleeding during intubation with concern for diffuse alveolar hemorrhage therefore planning bronchoscopy today. Patient had been on Lasix drip, increased to 20mg/hr on 08/07 drip stopped 08/09 along with metolazone. Patient's urine output while on Lasix drip was around 2 to 2.5 L. IV antibiotics currently Zosyn. Vanco stopped. Vanco trough 29.3 from 08/10. CT angiogram: No big thrombus seen, small pulmonary emboli, bilateral pleural effusions right greater than left with diffuse bilateral pulmonary infiltrates involving upper and lower lobes. - NSTEMI, acute decompensated heart failure with preserved EF; cardiac cath 08/07 recommendations medical therapy for coronary artery disease (2) Chronic kidney disease, stage 3b:
[2023-08-12] MEDS: Heparin 10,000 UNITS/10 ML Vial 1000 UNITS IV (11:42)
--- NOTE | 2023-08-12 11:57 | RAD_ITS ---
STUDY: X-RAY CHEST REASON FOR EXAM: Male, 72 years old. Line placement -- RIJ HD Line TECHNIQUE: Single AP portable view of the chest. COMPARISON: Comparison is made with prior study done earlier today at 8:59 AM. FINDINGS: The tip of the endotracheal tube is at 6.8 cm proximal to the zack. The tip of the orogastric tube is just distal to the gastroesophageal junction. EKG electrodes are seen. Stable appearance of the right-sided PICC line catheter. A right-sided internal jugular venous catheter has been placed with the tip in the midportion of the superior vena cava. Persistent bilateral patchy infiltrates which have improved as compared to prior study. Blunting of the left costophrenic angle. RAD/Chest 1 View (Portable) IMPRESSION: Improved aeration of both lungs. Support tubes are in good position. The tip of the right internal jugular venous catheter is in the midportion of the superior vena cava. Electronically Signed: Jack Garcia MD at 12:56 EDT ,
--- NOTE | 2023-08-12 11:58 | PCM.OP.PRO ---
Procedure Report Date of Procedure: 08/12/23 Temporary Hemodialysis Catheter Indication: Acute kidney injury Consent was obtained from: Patient's POA A time-out was completed verifying correct patient, procedure, site, positioning, and special equipment if applicable. The patient was placed in a dependent position appropriate for hemodialysis line placement based on the vein to be cannulated. The patient's right IJ was prepped and draped in the sterile fashion. 1% Lidocaine was used and emphasized the surrounding skin area. A 16 cm catheter was introduced into the right internal jugular vein, following sequential dilations, using the Seldinger technique and under ultrasound guidance. The catheter was threaded smoothly over the guidewire and appropriate blood return was obtained. Each lumen of the catheter was evacuated of air and flushed with sterile saline. The catheter was then sutured in place to the skin and a sterile dressing applied. Chest x-ray to confirm appropriate positioning is pending. ULTRASOUND GUIDANCE STATEMENT (Vascular Access): I performed an ultrasound image acquisition and interpretation for needle placement during the procedure. The vessel was identified and was found to be free of thrombosis by compression technique. A safe point of entry was marked at the skin in an angle for axis was determined. The needle was guided by obtaining free-flowing fluid and by real-time visualization. Procedures Hospitalists Procedures: 45824 Insert Non-tunnel CV Cath
--- NOTE | 2023-08-12 12:11 | OP.BRONCH_ITS ---
Patient Name: Claude Peña Procedure Date: 08/12/2023 10:59 AM Date of : 1950 Age: 72 Procedure: Bronchoscopy Indications: Acute respiratory failure Providers: Jovanny Munoz MD Complications: No immediate complications Procedure: Pre-Anesthesia Assessment: - A History and Physical has been performed. Patient meds and allergies have been reviewed. The risks and benefits of the procedure and the sedation options and risks were discussed with the patient, prior to his intubation. All questions were answered and informed consent was obtained. Patient identification and proposed procedure were verified prior to the procedure by the physician and the nurse in the procedure room. Airway Examination: orotracheal intubation. Respiratory Examination: clear to auscultation. CV Examination: normal. ASA Grade Assessment: III - A patient with severe systemic disease. The anesthesia plan was to use moderate sedation / analgesia (conscious sedation). Immediately prior to administration of medications, the patient was re-assessed for adequacy to receive sedatives. The heart rate, respiratory rate, oxygen saturations, blood pressure, adequacy of pulmonary ventilation, and response to care were monitored throughout the procedure. The physical status of the patient was re-assessed after the procedure. The scope was passed under direct vision. Throughout the procedure, the patient's blood pressure, pulse, and oxygen saturations were monitored continuously. The bronchoscope was introduced through the mouth, via the endotracheal tube and advanced to the tracheobronchial tree. The procedure was accomplished without difficulty. The patient tolerated the procedure well. Findings: Bilateral Lung Abnormalities: Mild erythema was found throughout the tracheobronchial tree. No tamiko bleeding was identified. No signifcant secretions were noted. The bronchoscope was advanced until wedged at the desired location for bronchoalveolar lavage. BAL was performed in the right middle lobe of the lung and sent for cell count, bacterial culture, viral smears & culture, and fungal & AFB analysis and cytology. 80 mL of fluid were instilled. 40 mL were returned. The return was blood-tinged. There were no mucoid plugs in the return fluid. Impression: - Erythema was present throughout the tracheobronchial tree. - Bronchoalveolar lavage was performed. Recommendation: - Await BAL results. Procedure Code(s): --- Professional --- 89755, Bronchoscopy, rigid or flexible, including fluoroscopic guidance, when performed; with bronchial alveolar lavage Diagnosis Code(s): --- Professional --- R09.89, Other specified symptoms and signs involving the circulatory and respiratory systems CPT copyright 2021 [employer]. All rights reserved. The codes documented in this report are preliminary and upon engineering professor review may be revised to meet current compliance requirements. DO Jovanny Adame MD 08/12/2023 12:11:34 PM This report has been signed electronically. Number of Addenda: 0 Note Initiated On: 08/12/2023 10:59 AM
[2023-08-12 12:34] LABS: Cytology, Washings SEE PATHOLOGY REPORT
--- NOTE | 2023-08-12 13:13 | CHAPLAIN ---
Type of Pastoral Visit ___ Initial Visit __x_ Follow-up Visit ___ On-call Visit ___ General Patient Visit ___ Spiritual Assessment ___ Family Conference ___ Bereavement ___ Rapid Response ___ Code Blue ___ Other (describe below) Pastoral Care Referral From ___ Patient _x__ Family _x__ Nurse ___ Physician ___ Stone Banker ___ Measurement And Verification Engineer ___ Other (describe below) Sacrament/Intervention _x__ Active listening ___ Anointing ___ Worship ___ Bereavement ___ Communion ___ [place] exploration ___ ___ Life review _x__ Prayer ___ Reconciliation ___ Sacrament of Sick _x__ Supportive presence ___ Wedding ___ Other (describe below) Pastoral Comments at request of WASH OPERATOR and for the family this biztalk consultant met with family members in the waiting area to again offer presence, support, and prayer; family expresses appreciation for the ongoing support as they wait on status of the patient
[2023-08-12] MEDS: 0.9% Normal Saline 1,000 ML IV.SOLN. 1000 ML OPERA.SITE (13:15)
[2023-08-12 13:29] LABS: Partial Thromboplast Time 25.9 Seconds (24.1-36.2)
[2023-08-12 13:51] LABS: Source- Body Fluid BRONCHIAL LAVAGE
[2023-08-12 13:52] LABS: Appearance/Body Fluid TURBID; Color/Body Fluid PINK
[2023-08-12 13:56] LABS: Red Cell Count/Body Fluid 515 /mm3
[2023-08-12 13:57] LABS: White Blood Count/Body Fluid 9049 /mm3
[2023-08-12] MEDS: Heparin Injection (Vial) 5,000 UNIT/ML VIAL IV (14:04)
[2023-08-12 14:12] LABS: Lymphocytes 18 %; Neutrophil (Segs) 71 %
[2023-08-12 14:13] LABS: Other Cell Type/BF 11 %
[2023-08-12] MEDS: PureFlow B 3K Dialysis Soln 1 BAG 6 BAG PF (14:24)
[2023-08-12] MEDS: Heparin 10,000 UNITS/10 ML Vial IV (15:00)
[2023-08-12] MEDS: HEPARIN/D5w 25,000 UNITS 25,000 UNITS/250 ML IV.SOLN. 12 UNITS CONT INF (17:37)
[2023-08-12] MEDS: Vital AF 1.2 Cal Liquid 1,000 ML 10 ML GT (17:39)
[2023-08-12 20:51] LABS: Partial Thromboplast Time 130.7 Seconds (24.1-36.2)
[2023-08-12] MEDS: Atorvastatin Calcium 40 MG Tablet GT (22:54)
[2023-08-13] VITALS (45 sets, daily range): BP systolic 79–150; BP diastolic 64–77; PULSE 62–98; RESP 16–27; TEMP 35.6–36.3; O2SAT 89–901; BMI 28.4
[2023-08-13] MEDS: 0.9% Saline Lock 10 ML Syringe IV ×4 (00:32→22:21)
[2023-08-13 05:10] LABS: Absolute Lymphocyte Count 0.48 X10^3/uL (0.83-4.51); Absolute Neutrophil Count 11.6 X10^3/uL (2.0-7.7); Basophil# 0.01 X10^3/uL; Basophil% 0.1 % (0-1); Hemoglobin 9.5 g/dL (13.0-16.5); Lymphocyte # 0.48 X10^3/ul (0.83-4.51); Lymphocyte % 3.7 % (19-41); Mean Corp Hgb Conc 30.6 g/dL (32-36); Mean Corpuscular Hgb 25.6 pg (27.0-32.0); Mean Corpuscular Volume 83.6 fL (80-94); Mean Platelet Vol. 12.3 fl (6.2-12.0); Monocyte% 4.7 % (0-10); NRBC Flagged by Analyzer 0 % (0-5); Neutrophil # 11.59 X10^3/uL (2.7-7.7); Neutrophil % 90.5 % (47-70); POSITIVE DIFFERENTIAL YES; Platelet Count 391 K/mm3 (150-450); RBC Distribution Width CV 16.4 % (11.6-14.6); RBC Distribution Width SD 49.1 fl (35.1-43.9); Red Blood Count 3.71 M/mm3 (4.6-6.2); White Blood Count 12.8 K/mm3 (4.4-11.0)
[2023-08-13 05:26] LABS: Anion Gap 14 (5-15); BUN 136 mg/dL (7-18); BUN/Creat Ratio 30.9 RATIO (10-20); Calcium,Total 8.9 mg/dL (8.5-10.1); Chloride 94 mmol/L (98-107); EST Glomerular Filtration Rate 14 mL/min (>60); Est Glom Filt Rate - Afr Amer 17 mL/min (>60); Estimated Creatinine Clearance 15.33 ml/min; Glucose 252 mg/dL (74-106); Magnesium 3.6 mg/dL (1.6-2.6); Phosphorus 8.6 mg/dL (2.5-4.9); Sodium Level 136 mmol/L (136-145)
[2023-08-13] MEDS: fentaNYL drip 100 ML 10 MCG CONT INF ×2 (05:39→20:32)
[2023-08-13] MEDS: Propofol 10MG/Ml 1,000 MG/100 ML Bottle 9.8 MG CONT INF ×2 (05:46→15:07)
--- NOTE | 2023-08-13 07:07 | PCM.PN.HOSP ---
Reason for Visit Reason for Visit: Diagnoses Non-ST elevation (NSTEMI) myocardial infarction (08/03/23) Pneumonia, unspecified organism (08/03/23) Pleural effusion, not elsewhere classified (08/03/23) Acute kidney failure, unspecified (08/03/23) Chronic kidney disease, stage 3b (08/03/23) Subjective Subjective Patient seen remains sedated on the vent. Had his first dialysis session the day prior Objective Data Objective Data Vital Signs: Vital Signs Temp Pulse Resp BP Pulse Ox O2 Del Method O2 Flow Rate 97 F L 68 16 94/64 93 Mechanical Ventilator 60 08/13/23 07:00 08/13/23 07:00 08/13/23 07:00 08/13/23 07:00 08/13/23 07:00 08/13/23 07:00 08/12/23 20:00 FiO2 40 08/13/23 07:00 Oxygen Flow Rate (L/min) 60 Oxygen Delivery Method Mechanical Ventilator Weight: 80.3 kg Body Mass Index (BMI) 28.4 Intake & Output: Intake and Output for Last 24 Hours 08/11/23 08/12/23 08/13/23 23:59 23:59 23:59 Intake Total 815.62 / 838.22 945.11 / 1068.31 365.35 / 365.35 Output Total 1450 / 1450 289 / 369 280 / 280 Balance -634.38 / -611.78 656.11 / 699.31 85.35 / 85.35 Lab / Micro Data 08/13/23 04:59 08/13/23 04:59 Labs: Laboratory Results - last 24 hr 08/12/23 06:56: Urine Color Elisa, Urine Clarity Cloudy, Urine pH 5.0, Ur Specific [place] 1.020, Urine Protein 30 H, Urine Glucose (UA) Normal, Urine Ketones 5 H, Urine Occult Blood 250 H, Urine Nitrite Negative, Urine Bilirubin Negative, Urine Urobilinogen Normal, Ur Leukocyte Esterase 100 H, Urine RBC > 100 SEEN, Urine WBC 10-25 SEEN, Ur Squamous Epith Cells 0 SEEN, Urine Bacteria 2+, Urine Mucus 0 SEEN 08/12/23 12:29: Fluid Source BRONCHIAL LAVAGE, Fluid Color PINK, Fluid Appearance TURBID, Fluid WBC 9049, Fluid RBC 515, Fluid Tot Cell Count TNP, Fluid Neutrophils 71, Fluid Lymphocytes 18, Fluid Other Cells 11, Fl Pathologist Comment May follow, Fluid Comment 2 Not Reportable 08/12/23 12:55: APTT 25.9 08/12/23 20:04: APTT 130.7 H* 08/13/23 04:59: WBC 12.8 H, RBC 3.71 L, Hgb 9.5 L, Hct 31.0 L, MCV 83.6, MCH 25.6 L, MCHC 30.6 L, RDW Std Deviation 49.1 H, RDW Coeff of Raghavendra 16.4 H, Plt Count 391, MPV 12.3 H, Immature Gran % (Auto) 1.000 H, Neut % (Auto) 90.5 H, Lymph % (Auto) 3.7 L, Nash % (Auto) 4.7, Eos % (Auto) 0.0, Baso % (Auto) 0.1, Absolute Neuts (auto) 11.6 H, Absolute Lymphs (auto) 0.48 L, Nucleated RBC % 0, APTT 55.0 H, Sodium 136, Potassium 4.0, Chloride 94 L, Carbon Dioxide 28.0, Anion Gap 14, BUN 136 H*, Creatinine 4.40 H, Estim Creat Clear Calc 15.33, Est GFR (MDRD) Af Amer 17 L, Est GFR (MDRD) Non-Af 14 L, BUN/Creatinine Ratio 30.9 H, Glucose 252 H, Calcium 8.9, Phosphorus 8.6 H, Magnesium 3.6 H Micro: Microbiology 08/12/23 12:29 Wash - Bronchial Gram Stain - Final 08/11/23 09:59 Sputum, Induced/Lukens Gram Stain - Final 08/11/23 09:59 Sputum, Induced/Lukens Respiratory Culture - Preliminary Gram negative edd 08/12/23 10:49 Nasal Secretion SARS-CoV-2 Antigen (Rapid) - Final 08/11/23 15:14 Fluid - Pleural (Lung) Gram Stain - Final 08/04/23 00:00 Sputum, Expectorated/Coughed Gram Stain - Final 08/04/23 00:00 Sputum, Expectorated/Coughed Respiratory Culture - Final 08/03/23 21:57 Urine, Random Legionella Antigen - Final 08/03/23 21:57 Urine, Random Streptococcus pneumoniae Antigen (M - Final 08/03/23 18:30 Mucosa - Nose SARS-CoV-2, Influenza & RSV (PCR) - Final Radiography Diagnostic Testing: Radiology Impression Chest X-Ray 08/12/23 09:08 IMPRESSION: The support tubes are in good position. There is blunting of the left costo phrenic angle. Stable infiltrate in the left lung. Since prior study, there has been increased markings at the right lung base. Electronically Signed: Jack Garcia MD at 9:27 EDT , Chest X-Ray 08/12/23 11:57 IMPRESSION: Improved aeration of both lungs. Support tubes are in good position. The tip of the right internal jugular venous catheter is in the midportion of the superior vena cava. Electronically Signed: Jack Garcia MD at 12:56 EDT , Physical Exam Narrative GENERAL: Sedated on the vent HEENT: Atraumatic; normocephalic EYES; Anicteric, Normal Conjunctiva NECK; supple, normal thyroid, RESPIRATORY: Diminished to auscultation CARDIOVASCULAR: Regular S1 S2, GI: soft, normoactive bowel sounds, : No Renal angle tenderness; EXTREMITIES: No edema, no clubbing, MUSCULOSKELETAL: no muscle wasting NEURO: Sedated on the vent SKIN: No Rash PSYCH; Flat affect Assessment & Plan Assessment/Plan (1) Non-STEMI (non-ST elevated myocardial infarction): PLAN: Plan Patient is a 72-year-old gentleman admitted with shortness of breath was found to have elevated troponin consistent with acute non-STEMI treatment initiated per protocol admitted to the intensive care unit. Patient was found to be in acute respiratory failure resulting in the use of BiPAP 1. Acute non-STEMI ? Patient admitted to the intensive care unit managed per protocol with heparin, aspirin added statin therapy and beta-blockers with consultation placed to cardiology. Plan is for patient to undergo left heart catheterization ? 08/09/2023 cardiac catheterization demonstrated Normal left main coronary artery, First diagonal vessel with 90% long proximal stenosis, Left anterior descending artery with mild disease ,Nondominant left circumflex artery with first obtuse marginal branch with 70% stenosis, Totally occluded right coronary artery with buan-ca-numed collaterals ,Low normal left ventricular ejection fraction noted on echocardiogram with dilated right ventricle 2. Acute hypoxic respiratory failure ? Multifactorial including acute congestive heart failure, suspected PE as well as pneumonia patient placed on noninvasive ventilation Airvo. Consult placed to field artillery radar operator notes and recommendations reviewed ? 08/09/2023.Patient seen remains on noninvasive ventilation on BiPAP. Given his significant oxygen requirement decision was made for patient to undergo CTA of the chest to evaluate possible clot burden. ? 08/10/2023; CTA of the chest demonstrated evidence of pulmonary embolism, bilateral pulmonary infiltrates as well as bilateral pleural effusion right greater than left. ? 08/11/2023; respiratory status continues to worsen plan is for patient to undergo elective intubation ? 08/12/2023; Patient was electively intubated the day prior due to worsening respiratory failure. Remained stable on the vent. Plan is for patient to undergo bronchoscopy ? 08/13/2023 remains stable on the vent 3. Acute VTE (RLE DVT and PE) -Patient underwent VQ scan which was nonconclusive lower extremity duplex demonstrated acute right lower extremity DVT. Patient is on heparin The estimated ejection fraction is 55 %. Unable to assess diastolic dysfunction. Moderately dilated right ventricle. Trivial mitral valve insufficiency. ? 08/10/2023 CTA demonstrated evidence of pulmonary embolism (There is evidence of a intraluminal filling defects in small branches in the right lower lobe suggestive of small pulmonary emboli. No big thrombus is seen.) Patient remains on apixaban plan is to hold and transition to heparin for patient to undergo ultrasound-guided thoracocentesis 4. Acute congestive heart failure with preserved ejection fraction -Echo from 08/04/2023 demonstrated EF of 55%. Patient management strict input and output, fluid restriction as well as diuretic therapy with furosemide 5. Bilateral pleural effusions right greater than left with diffuse bilateral -Plan is for patient to undergo ultrasound-guided thoracocentesis. Patient systemic anticoagulation with apixaban to be held restarted on heparin ? 08/12/2023; Patient also underwent successful ultrasound-guided thoracentesis of the right hemithorax with 1.2 L of fluid removed. . 6. Suspected pneumonia CT of the chest demonstrated bilateral pulmonary infiltrates involving both upper and lower lobes. Patient remains on broad-spectrum antibiotic therapy ? 08/13/2023; sputum cultures grew Stenotrophomonas maltophilia. Patient antibiotic therapy subsequently adjusted 7. Chronic kidney disease stage IIIb ? Monitoring kidney function ? 08/11/2023; kidney function continues to worsen following diagnostician as well as diuretic therapy nephrology on board ? 08/13/2023 patient kidney function did worsen necessitating initiation of hemodialysis by nephrology 8. Presence of solitary kidney ? 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 Hypokalemia ? Corrected per protocol repeat labs ordered for subsequent management 10. Hypertension - Blood pressure controlled, patient is on amlodipine continue also on chlorthalidone held 11. Acute cystitis ? Patient remains on broad-spectrum antibiotics Time spent in the patient's overall evaluation,decision-making process, review of diagnostic data, adjustment of management, discussion with other providers, nursing nursing and ancillary staff involved in patient's care documentation, 38 Minutes Charges/Coding Visit Charges Inpatient E&M: 66397 Subs Hosp L2
--- NOTE | 2023-08-13 10:10 | PN.CARD_ITS ---
Subjective Subjective patient seen and evaluated Objective Data Vital Signs: Vital Signs Temp Pulse Resp BP Pulse Ox O2 Del Method O2 Flow Rate 97.1 F L 92 27 H 99/64 95 Mechanical Ventilator 60 08/13/23 08:00 08/13/23 08:58 08/13/23 08:58 08/13/23 08:00 08/13/23 08:58 08/13/23 08:00 08/12/23 20:00 FiO2 40 08/13/23 08:00 Oxygen Flow Rate (L/min) 60 Oxygen Delivery Method Mechanical Ventilator Weight: 177 lb 0.499 oz Body Mass Index (BMI) 28.4 Intake & Output: Intake and Output for Last 24 Hours 08/11/23 08/12/23 08/13/23 23:59 23:59 23:59 Intake Total 815.62 / 838.22 945.11 / 1068.31 385.15 / 385.15 Output Total 1450 / 1450 289 / 369 280 / 280 Balance -634.38 / -611.78 656.11 / 699.31 105.15 / 105.15 Lab / Micro Data 08/13/23 04:59 08/13/23 04:59 Labs: Laboratory Results - last 24 hr 08/12/23 12:29: Fluid Source BRONCHIAL LAVAGE, Fluid Color PINK, Fluid Appearance TURBID, Fluid WBC 9049, Fluid RBC 515, Fluid Tot Cell Count TNP, Fluid Neutrophils 71, Fluid Lymphocytes 18, Fluid Other Cells 11, Fl Pathologist Comment May follow, Fluid Comment 2 Not Reportable 08/12/23 12:55: APTT 25.9 08/12/23 20:04: APTT 130.7 H* 08/13/23 04:59: WBC 12.8 H, RBC 3.71 L, Hgb 9.5 L, Hct 31.0 L, MCV 83.6, MCH 25.6 L, MCHC 30.6 L, RDW Std Deviation 49.1 H, RDW Coeff of Raghavendra 16.4 H, Plt Count 391, MPV 12.3 H, Immature Gran % (Auto) 1.000 H, Neut % (Auto) 90.5 H, Lymph % (Auto) 3.7 L, Mitchell % (Auto) 4.7, Eos % (Auto) 0.0, Baso % (Auto) 0.1, Absolute Neuts (auto) 11.6 H, Absolute Lymphs (auto) 0.48 L, Nucleated RBC % 0, APTT 55.0 H, Sodium 136, Potassium 4.0, Chloride 94 L, Carbon Dioxide 28.0, Anion Gap 14, BUN 136 H*, Creatinine 4.40 H, Estim Creat Clear Calc 15.33, Est GFR (MDRD) Af Amer 17 L, Est GFR (MDRD) Non-Af 14 L, BUN/Creatinine Ratio 30.9 H , Glucose 252 H, Calcium 8.9, Phosphorus 8.6 H, Magnesium 3.6 H Micro: Microbiology 08/11/23 15:14 Fluid - Pleural (Lung) Gram Stain - Final 08/11/23 15:14 Fluid - Pleural (Lung) Body Fluid Culture - Preliminary No growth-Final to follow 08/11/23 09:59 Sputum, Induced/Lukens Gram Stain - Final 08/11/23 09:59 Sputum, Induced/Lukens Respiratory Culture - Preliminary Stenotrophomonas maltophilia 08/12/23 12:29 Wash - Bronchial Gram Stain - Final 08/12/23 10:49 Nasal Secretion SARS-CoV-2 Antigen (Rapid) - Final Cardiology Labs/Tests 08/12/23 12:55: APTT 25.9 08/12/23 20:04: APTT 130.7 H* 08/13/23 04:59: WBC 12.8 H, RBC 3.71 L, Hgb 9.5 L, Hct 31.0 L, MCV 83.6, MCH 25.6 L, MCHC 30.6 L, Plt Count 391, MPV 12.3 H, Immature Gran % (Auto) 1.000 H, Neut % (Auto) 90.5 H, Lymph % (Auto) 3.7 L, Mitchell % (Auto) 4.7, Eos % (Auto) 0.0, Baso % (Auto) 0.1, Absolute Neuts (auto) 11.6 H, Nucleated RBC % 0, APTT 55.0 H, Sodium 136, Potassium 4.0, Chloride 94 L, Carbon Dioxide 28.0, Anion Gap 14, BUN 136 H*, Creatinine 4.40 H, Est GFR (MDRD) Af Amer 17 L, Est GFR (MDRD) Non-Af 14 L, BUN/Creatinine Ratio 30.9 H, Glucose 252 H, Calcium 8.9, Phosphorus 8.6 H, Magnesium 3.6 H Rhythm: EKG: ECHO: Stress Test: Cardiac Cath: PCI: CT Surgery: Holter monitor: EPS: PPM: CXR: Chest CT Scan: Radiography Diagnostic Testing: Radiology Impression Chest X-Ray 08/12/23 11:57 IMPRESSION: Improved aeration of both lungs. Support tubes are in good position. The tip of the right internal jugular venous catheter is in the midportion of the superior vena cava. Electronically Signed: Jack Garcia MD at 12:56 EDT , Physical Exam Const alert, oriented x3 and no apparent distress General Appearance: cooperative HEENT hearing grossly normal bilaterally Head and Scalp: atraumatic Eyes EOMs intact bilaterally Neck General: normal visual inspection Chest inspection of chest normal and palpation of chest normal Resp normal respiratory effort Auscultation: clear to auscultation bilaterally Cardio regular rate, regular rhythm, S1 normal heart sound and S2 normal heart sound Jugular Venous Distention: JVD GI normal to inspection, nondistended, normoactive bowel sounds Extremity normal capillary refill and no pedal edema Peripheral Pulses: Yes pulses 2+ throughout and femoral pulses present Skin no rashes or lesions noted Neuro oriented x3 and CN's II-XII intact bilaterally Psych Appearance: grossly normal and appropriate Assessment & Plan Assessment/Plan (1) Non-STEMI (non-ST elevated myocardial infarction): PLAN: Patient underwent cardiac catheterization with 15 cc of contrast agent only. It demonstrated the following: * Normal left main coronary artery * First diagonal vessel with 90% long proximal stenosis * Left anterior descending artery with mild disease * Nondominant left circumflex artery with first obtuse marginal branch with 70% stenosis * Totally occluded right coronary artery with [id number] collaterals * Low normal left ventricular ejection fraction noted on echocardiogram with dilated right ventricle. * Would recommend medical therapy for the coronary artery disease . * * * would continue to follow peripherally. * Above discussed with hospitalist, nursing, cable installer repairer, molding sander.
[2023-08-13] MEDS: Chlorhexidine 15 ML PO ×2 (10:49→22:11)
[2023-08-13] MEDS: CHLORHEXIDINE GLUC 2% CLOTH 1 EACH TOWELETTE TOPICAL (10:49)
[2023-08-13] MEDS: PureFlow B 3K Dialysis Soln 1 BAG 6 BAG PF (12:35)
[2023-08-13] MEDS: 0.9% Normal Saline 1,000 ML IV.SOLN. 1000 ML OPERA.SITE (12:35)
[2023-08-13] MEDS: Heparin 10,000 UNITS/10 ML Vial IV (12:36)
--- NOTE | 2023-08-13 12:44 | PCM.PN.TICU ---
Objective Data Objective Data Vital Signs: Vital Signs Last response Temperature 36.2 C L 08/13/23 10:45 Temperature Source Temporal 08/13/23 10:45 Pulse Rate 66 08/13/23 12:30 Pulse Strength Normal (2+) 08/13/23 10:00 Respiratory Rate 16 08/13/23 12:30 Respiratory Effort Mechanically Ventilated 08/13/23 10:45 Respiratory Depth Normal 08/13/23 10:45 Respiratory Pattern Normal 08/13/23 10:45 Blood Pressure 100/69 08/13/23 12:30 Blood Pressure Mean 79 08/13/23 12:30 Blood Pressure Source Monitor 08/13/23 12:30 Blood Pressure Position Semi-Fowlers 08/13/23 12:30 Blood Pressure Location Right Arm 08/13/23 12:30 Pulse Ox 98 08/13/23 12:30 Oxygen Delivery Method Mechanical Ventilator 08/13/23 12:30 Oxygen Flow Rate (L/min) 60 08/12/23 20:00 Fraction of Inspired Oxygen (FIO2) 40 08/13/23 11:00 I&O: I&O Last 24 Hours 08/12/23 08/13/23 08/13/23 23:59 11:59 23:59 Intake Total 410.02 / 1068.31 530.29 / 538.94 8.65 / 538.94 Output Total 200 / 369 280 / 280 Balance 210.02 / 699.31 250.29 / 258.94 8.65 / 258.94 I&O: Total Stay 08/03/23 13:43 thru 08/13/23 12:00 Intake Total 73636.11 Output Total 46607 Balance -8067.89 Current Meds Ordered / Administered: Current meds ordered / Administered Generic Name Dose Route Start Last Admin Trade Name Freq PRN Reason Stop Dose Admin Acetaminophen 650 mg 08/12/23 03:35 Acetaminophen 650 Mg/20 Ml Udc GT Q6H PRN PRN Pain 1-10 Or Fever >100.7 Albuterol Sulfate 2.5 mg 08/03/23 17:36 08/05/23 04:31 Albuterol 2.5 Mg/3 Ml Vial.Neb. INHALATION 2.5 mg Q2H PRN PRN Administration SHORTNESS OF BREATH Aspirin 81 mg 08/12/23 08:00 08/12/23 09:38 Aspirin 81 Mg Tab.Chew GT Not Given BREAKFAST REY Atorvastatin Calcium 40 mg 08/12/23 22:00 08/12/23 22:54 Atorvastatin Calcium 40 Mg Tablet GT 40 mg QHS REY Administration Chlorhexidine Gluconate 1 each 08/11/23 10:00 08/13/23 10:49 Chlorhexidine Gluc 2% Cloth 1 Each Towelette TOPICAL 1 each DAILY REY Administration Chlorhexidine Gluconate 15 ml 08/11/23 22:00 08/13/23 10:49 Chlorhexidine 15 Ml PO 15 ml BID REY Administration Guaifenesin 600 mg 08/03/23 22:00 08/13/23 11:11 Guaifenesin 600 Mg Tablet PO Not Given BID REY Hemodialysis Solution 6 bag 08/13/23 06:00 08/13/23 12:35 Pureflow B 3k Dialysis Soln 1 Bag PF 08/13/23 18:00 5 bag UD REY Administration Protocol Heparin Sodium (Porcine) 0 unit 08/10/23 07:40 08/12/23 14:04 Heparin Injection (Vial) 5,000 Unit/Ml Vial IV 3,000 unit UD PRN Administration dose adjustment Protocol Heparin Sodium (Porcine) 1,000 - 3,000 units 08/13/23 06:00 08/13/23 12:36 Heparin 10,000 Units/10 Ml Vial IV 08/13/23 18:00 2,600 units X1 PRN Administration HD catheter closing Sodium Chloride 250 mls @ 15 mls/hr 08/04/23 23:09 08/08/23 02:14 IV Infused .[id number] PRN Infusion Additional IVPB Infusion Sodium Chloride 250 mls @ 15 mls/hr 08/04/23 23:09 IV .[id number] PRN Saline Flush Heparin Sodium/Dextrose 25,000 units in 250 mls @ 12 mls/hr 08/10/23 07:30 08/13/23 08:00 CONT INF 900 units/hr .[id number] REY 9 mls/hr Titration Protocol As Directed Propofol 1,000 mg in 100 mls @ 4.896 mls/hr 08/11/23 07:55 08/13/23 12:00 Diprivan CONT INF 20 mcg/kg/min .Q12H REY 9.8 mls/hr Titration Protocol 10 MCG/KG/MIN Fentanyl 100 mls @ 5 mls/hr 08/11/23 07:55 08/13/23 12:00 CONT INF 75 mcg/hr UD REY 7.5 mls/hr Titration Protocol 50 MCG/HR Pantoprazole Sodium 40 mg/ 110 mls @ 330 mls/hr 08/11/23 10:00 08/12/23 11:44 Sodium Chloride IV Infused Q24 REY Infusion Enteral Nutritional Formula 1,000 mls @ 10 mls/hr 08/12/23 17:15 08/13/23 10:15 Vital Af 1.2 Kam Liquid GT 10 mls/hr .Q48H REY Infusion Levofloxacin 500 mg in 100 mls @ 100 mls/hr 08/15/23 10:00 Levaquin Iv IV Q48 REY Methylprednisolone 40 mg 08/10/23 12:00 08/13/23 05:49 Methylprednisolone 40 Mg/Ml Vial IV 40 mg Q6 REY Administration Metoprolol Tartrate 12.5 mg 08/12/23 10:00 08/12/23 09:38 Metoprolol Tartrate 25 Mg Tablet GT Not Given DAILY [facility] Protocol Morphine Sulfate 2 - 4 mg 08/03/23 17:36 08/05/23 11:44 Morphine 2 Mg/Ml Syringe IV 4 mg Q3H PRN PRN Administration Pain Score 6-10 Ondansetron HCl 4 mg 08/03/23 17:36 Ondansetron 4 Mg/2 Ml Vial IV Q8H PRN PRN NAUSEA/VOMITING Oxycodone HCl 5 mg 08/12/23 03:36 Oxycodone 5 Mg Tablet GT Q4H PRN PRN Pain Score 4-10 Sodium Chloride 10 - 40 ml 08/03/23 17:59 08/13/23 12:36 0.9% Saline Lock 10 Ml Syringe IV 20 ml UD PRN Administration SALINE FLUSH Lab / Micro Data 08/13/23 14:00 08/13/23 04:59 Labs: Laboratory Results - last 24 hr 08/12/23 12:29: Fluid Source BRONCHIAL LAVAGE, Fluid Color PINK, Fluid Appearance TURBID, Fluid WBC 9049, Fluid RBC 515, Fluid Tot Cell Count TNP, Fluid Neutrophils 71, Fluid Lymphocytes 18, Fluid Other Cells 11, Fl Pathologist Comment May follow, Fluid Comment 2 Not Reportable 08/12/23 12:55: APTT 25.9 08/12/23 20:04: APTT 130.7 H* 08/13/23 04:59: WBC 12.8 H, RBC 3.71 L, Hgb 9.5 L, Hct 31.0 L, MCV 83.6, MCH 25.6 L, MCHC 30.6 L, RDW Std Deviation 49.1 H, RDW Coeff of Raghavendra 16.4 H, Plt Count 391, MPV 12.3 H, Immature Gran % (Auto) 1.000 H, Neut % (Auto) 90.5 H, Lymph % (Auto) 3.7 L, Humphreys % (Auto) 4.7, Eos % (Auto) 0.0, Baso % (Auto) 0.1, Absolute Neuts (auto) 11.6 H, Absolute Lymphs (auto) 0.48 L, Nucleated RBC % 0, APTT 55.0 H, Sodium 136, Potassium 4.0, Chloride 94 L, Carbon Dioxide 28.0, Anion Gap 14, BUN 136 H*, Creatinine 4.40 H, Estim Creat Clear Calc 15.33, Est GFR (MDRD) Af Amer 17 L, Est GFR (MDRD) Non-Af 14 L, BUN/Creatinine Ratio 30.9 H, Glucose 252 H, Calcium 8.9, Phosphorus 8.6 H, Magnesium 3.6 H Micro: Microbiology 08/12/23 12:29 Wash - Bronchial Gram Stain - Final 08/12/23 12:29 Wash - Bronchial Respiratory Culture - Preliminary Gram negative edd 08/11/23 15:14 Fluid - Pleural (Lung) Gram Stain - Final 08/11/23 15:14 Fluid - Pleural (Lung) Body Fluid Culture - Preliminary No growth-Final to follow 08/11/23 09:59 Sputum, Induced/Lukens Gram Stain - Final 08/11/23 09:59 Sputum, Induced/Lukens Respiratory Culture - Preliminary Stenotrophomonas maltophilia 08/12/23 10:49 Nasal Secretion SARS-CoV-2 Antigen (Rapid) - Final Imaging Radiology Impression Chest X-Ray 08/12/23 11:57 IMPRESSION: Improved aeration of both lungs. Support tubes are in good position. The tip of the right internal jugular venous catheter is in the midportion of the superior vena cava. Electronically Signed: Jack Garcia MD at 12:56 EDT , Assessment and Plan . Assessment and plan: Patient seen and examined Chart and data reviewed He is sedated - awakens w/ SAT NSR / HD stable HD w/ minimal UF performed earlier MV 8 LPM, PIP 27, O2 0.4, PEEP 8 BAL / CX reviewed No new pCXR or ABG GEN NAD, sedated VS as above HEENT DANIEL NECK obese COR RRR CHEST coarse ABD soft EXT minimal edema SKIN w/d JESICA NF All data reviewed IMP 1. Acute respiratory failure requiring MV support 2. Diffuse pulmonary infiltrates 3. Possible bacterial PNA 4. CAD/ASCVD 5. Renal insufficiency - requiring PAN DEVULCANIZER 6. VTED REC -MV support -SBT in am -PAN DEVULCANIZER w/ UF -ABX, f/u CX -IV UFH -enteral nutrition -anti-PLT Critical Care Time: 50 min The entirety of this encounter was done via Telemedicine
[2023-08-13 13:24] LABS: Partial Thromboplast Time 61.4 Seconds (24.1-36.2)
[2023-08-13] MEDS: levoFLOXacin IV 750 MG/150 ML BAG 100 MG IV (14:06)
[2023-08-13 14:09] LABS: Hemoglobin 10.1 g/dL (13.0-16.5)
[2023-08-13] MEDS: Aspirin 81 MG TAB.CHEW GT (14:09)
[2023-08-13] MEDS: Vital AF 1.2 Cal Liquid 1,000 ML 10 ML GT (15:11)
[2023-08-13] MEDS: Pantoprazole Sodium 40 MG in 0.9% Normal Saline (100mL MB+) 100 ML 330 MG IV (15:58)
[2023-08-13] MEDS: Menthol/Lanolin/Calamine/Znox 113 GM Tube 1 APPLIC TOPICAL (22:10)
[2023-08-13] MEDS: HEPARIN/D5w 25,000 UNITS 25,000 UNITS/250 ML IV.SOLN. 9 UNITS CONT INF (22:12)
[2023-08-13] MEDS: Atorvastatin Calcium 40 MG Tablet GT (22:13)
[2023-08-14] VITALS (34 sets, daily range): BP systolic 92–113; BP diastolic 61–77; PULSE 68–100; RESP 15–18; TEMP 36.3–37.2; O2SAT 87–98; BMI 29.7
--- NOTE | 2023-08-14 00:13 | PCM.HOSP.N ---
Hospitalist Note Patient with BRB per ETT, Hgb prior stable, will repeat HH at 2 am and again with AM labs. Continued on heparin drip, last PTT appropriate, has PNA, NSTEMI, PEs.
[2023-08-14] MEDS: Propofol 10MG/Ml 1,000 MG/100 ML Bottle 9.8 MG CONT INF ×2 (00:23→03:34)
--- NOTE | 2023-08-14 00:31 | RAD_ITS ---
INDICATION: Dyspnea EXAMINATION/TECHNIQUE: X-RAY - AP view of chest COMPARISON: Chest x-ray from 08/12/2023 FINDINGS: LINES/DEVICES: ET tube tip at level of clavicular heads. Right PICC tip at lower SVC. Right jugular central line tip at mid SVC. Enteric tube tip at mid stomach. LUNGS: Persistent multifocal bilateral pulmonary airspace opacities. No sizable pleural effusion. No detectable pneumothorax. MEDIASTINUM AND CARDIOVASCULAR STRUCTURES: Heart size within normal limits for imaging technique. Atherosclerotic calcifications along aorta. BONES AND SOFT TISSUES: Skeletal degenerative changes. RAD/Chest 1 View (Portable) IMPRESSION: Bilateral pulmonary airspace disease/infiltrate Electronically Signed: Rito Harrell MD at 2:52 EDT ,
[2023-08-14 01:59] LABS: Absolute Lymphocyte Count 0.43 X10^3/uL (0.83-4.51); Absolute Neutrophil Count 13.2 X10^3/uL (2.0-7.7); Basophil# 0.03 X10^3/uL; Basophil% 0.2 % (0-1); Hematocrit 32.2 % (40-54); Hemoglobin 9.8 g/dL (13.0-16.5); Lymphocyte # 0.43 X10^3/ul (0.83-4.51); Lymphocyte % 2.9 % (19-41); Mean Corp Hgb Conc 30.4 g/dL (32-36); Mean Corpuscular Hgb 25.4 pg (27.0-32.0); Mean Corpuscular Volume 83.4 fL (80-94); Mean Platelet Vol. 12.3 fl (6.2-12.0); Monocyte# 0.78 X10^3/uL; Monocyte% 5.3 % (0-10); NRBC Flagged by Analyzer 0.3 % (0-5); Neutrophil # 13.15 X10^3/uL (2.7-7.7); Neutrophil % 89.9 % (47-70); POSITIVE DIFFERENTIAL YES; Platelet Count 389 K/mm3 (150-450); RBC Distribution Width CV 16.4 % (11.6-14.6); Red Blood Count 3.86 M/mm3 (4.6-6.2); White Blood Count 14.6 K/mm3 (4.4-11.0)
[2023-08-14 02:32] LABS: ALB/GLOB Ratio 0.7 RATIO (0.9-2.4); AST(SGOT) 27 U/L (15-37); Alanine Aminotransfer ALT/SGPT 37 U/L (16-61); Albumin, Serum 2.4 g/dL (3.2-5.0); Alkaline Phosphatase 54 U/L (45-117); Anion Gap 12 (5-15); BUN 110 mg/dL (7-18); Calcium,Total 8.7 mg/dL (8.5-10.1); Chloride 96 mmol/L (98-107); Creatinine, Serum 3.67 mg/dL (0.70-1.30); EST Glomerular Filtration Rate 17 mL/min (>60); Est Glom Filt Rate - Afr Amer 21 mL/min (>60); Estimated Creatinine Clearance 18.38 ml/min; Globulin 3.5 g/dL (2.2-4.2); Glucose 231 mg/dL (74-106); Potassium 4.4 mmol/L (3.5-5.1); Protein, Total 5.9 g/dL (6.4-8.2); Sodium Level 135 mmol/L (136-145)
[2023-08-14 04:32] LABS: Partial Thromboplast Time 64.9 Seconds (24.1-36.2)
[2023-08-14 04:39] LABS: Allen Test Positive; Base Excess 0 mmol/L (-2 to +2); Bicarbonate 24.2 mmol/L (22-26); Blood Gas Specimen Type ART; Mode AC; O2 Delivery Device Adult Vent; PEEP 10; PO2 90 mmHG (75-100); RR 16; SITE L Radial; SO2 98 % (95-99); Total Carbon Dioxide 25 mmol/L; pCO2 33.7 mmHg (35-45); pH 7.46 (7.35-7.45)
[2023-08-14] MEDS: TITRATION PARAMETER CHANGE 1 EACH IV (05:25)
[2023-08-14] MEDS: Menthol/Lanolin/Calamine/Znox 113 GM Tube 1 APPLIC TOPICAL ×3 (05:45→20:37)
[2023-08-14] MEDS: fentaNYL drip 100 ML 10 MCG CONT INF ×2 (06:31→16:11)
--- NOTE | 2023-08-14 07:25 | PN.HOSP_ITS ---
Reason for Visit Reason for Visit: Diagnoses Non-ST elevation (NSTEMI) myocardial infarction (08/03/23) Pneumonia, unspecified organism (08/03/23) Pleural effusion, not elsewhere classified (08/03/23) Acute kidney failure, unspecified (08/03/23) Chronic kidney disease, stage 3b (08/03/23) Subjective Subjective Patient seen still remains on the vent. Had another session of dialysis the day prior. Patient has bloody discharge from his suction tubing Objective Data Objective Data Vital Signs: Vital Signs Temp Pulse Resp BP Pulse Ox O2 Del Method O2 Flow Rate 97.5 F L 75 16 106/70 93 Mechanical Ventilator 60 08/14/23 06:00 08/14/23 07:00 08/14/23 07:00 08/14/23 07:00 08/14/23 07:00 08/14/23 07:00 08/14/23 04:00 FiO2 50 08/14/23 07:00 Oxygen Flow Rate (L/min) 60 Oxygen Delivery Method Mechanical Ventilator Weight: 84 kg Body Mass Index (BMI) 29.7 Intake & Output: Intake and Output for Last 24 Hours 08/12/23 08/13/23 08/14/23 23:59 23:59 23:59 Intake Total 945.11 / 1068.31 1271.96 / 1431.76 387.54 / 387.54 Output Total 289 / 369 835 / 1035 350 / 350 Balance 656.11 / 699.31 436.96 / 396.76 37.54 / 37.54 Lab / Micro Data 08/14/23 01:45 08/14/23 01:45 Labs: Laboratory Results - last 24 hr 08/12/23 12:29: Fluid Source BRONCHIAL LAVAGE, Fluid Color PINK, Fluid Appearance TURBID, Fluid WBC 9049, Fluid RBC 515, Fluid Tot Cell Count TNP, Fluid Neutrophils 71, Fluid Lymphocytes 18, Fluid Other Cells 11, Fl Pathologist Comment May follow 08/13/23 12:50: APTT 61.4 H 08/13/23 14:00: Hgb 10.1 L, Hct 33.0 L 08/14/23 01:45: WBC 14.6 H, RBC 3.86 L, Hgb 9.8 L 08/14/23 01:45: Hgb Cancelled, Hct 32.2 L 08/14/23 01:45: Hct Cancelled, MCV 83.4, MCH 25.4 L, MCHC 30.4 L, RDW Std Deviation 49.0 H, RDW Coeff of Raghavendra 16.4 H, Plt Count 389, MPV 12.3 H, Immature Gran % (Auto) 1.700 H, Neut % (Auto) 89.9 H, Lymph % (Auto) 2.9 L, [place] % (Auto) 5.3, Eos % (Auto) 0.0, Baso % (Auto) 0.2, Absolute Neuts (auto) 13.2 H, Absolute Lymphs (auto) 0.43 L, Nucleated RBC % 0.3, Diff Path Review Cancelled, Sodium 135 L, Potassium 4.4, Chloride 96 L, Carbon Dioxide 27.0, Anion Gap 12, BUN 110 H*, Creatinine 3.67 H, Estim Creat Clear Calc 18.38, Est GFR (MDRD) Af Amer 21 L , Est GFR (MDRD) Non-Af 17 L, BUN/Creatinine Ratio 30.0 H, Glucose 231 H, Calcium 8.7, Total Bilirubin 0.40, AST 27, ALT 37, Alkaline Phosphatase 54, Total Protein 5.9 L, Albumin 2.4 L, Globulin 3.5, Albumin/Globulin Ratio 0.7 L 08/14/23 04:12: APTT 64.9 H Micro: Microbiology 08/11/23 15:14 Fluid - Pleural (Lung) Gram Stain - Final 08/11/23 15:14 Fluid - Pleural (Lung) Body Fluid Culture - Preliminary No growth-Final to follow 08/11/23 15:14 Fluid - Pleural (Lung) Anaerobic Culture - Preliminary No growth in 48 hours. 08/12/23 12:29 Wash - Bronchial Gram Stain - Final 08/12/23 12:29 Wash - Bronchial Respiratory Culture - Preliminary Gram negative edd 08/11/23 09:59 Sputum, Induced/Lukens Gram Stain - Final 08/11/23 09:59 Sputum, Induced/Lukens Respiratory Culture - Preliminary Stenotrophomonas maltophilia 08/12/23 10:49 Nasal Secretion SARS-CoV-2 Antigen (Rapid) - Final 08/04/23 00:00 Sputum, Expectorated/Coughed Gram Stain - Final 08/04/23 00:00 Sputum, Expectorated/Coughed Respiratory Culture - Final 08/03/23 21:57 Urine, Random Legionella Antigen - Final 08/03/23 21:57 Urine, Random Streptococcus pneumoniae Antigen (M - Final 08/03/23 18:30 Mucosa - Nose SARS-CoV-2, Influenza & RSV (PCR) - Final ABG Data ABG results: ABG 08/14/23 04:34 Specimen Type ART Sample Site L Radial pH 7.46 H Bicarbonate Actual 24.2 Total CO2 25 Base Excess 0 O2 Saturation 98 O2 % 50.0 ABG pCO2 33.7 L ABG pO2 90 Abhijit Test Positive Respiration Rate 16 O2 Delivery Device Adult Vent Vent Mode AC Tidal Volume 500.0 POC PEEP 10 Radiography Diagnostic Testing: Radiology Impression Chest X-Ray 08/14/23 00:31 IMPRESSION: Bilateral pulmonary airspace disease/infiltrate Electronically Signed: Rito Harrell MD at 2:52 EDT , Physical Exam Narrative GENERAL: Sedated on the vent HEENT: Atraumatic; normocephalic EYES; Anicteric, Normal Conjunctiva NECK; supple, normal thyroid, RESPIRATORY: Diminished to auscultation CARDIOVASCULAR: Regular S1 S2, GI: soft, normoactive bowel sounds, : No Renal angle tenderness; EXTREMITIES: No edema, no clubbing, MUSCULOSKELETAL: no muscle wasting NEURO: Sedated on the vent SKIN: No Rash PSYCH; Flat affect Assessment & Plan Assessment/Plan (1) Non-STEMI (non-ST elevated myocardial infarction): PLAN: Plan Patient is a 72-year-old gentleman admitted with shortness of breath was found to have elevated troponin consistent with acute non-STEMI treatment initiated per protocol admitted to the intensive care unit. Patient was found to be in acute respiratory failure resulting in the use of BiPAP 1. Acute non-STEMI ? Patient admitted to the intensive care unit managed per protocol with heparin, aspirin added statin therapy and beta-blockers with consultation placed to cardiology. Plan is for patient to undergo left heart catheterization ? 08/09/2023 cardiac catheterization demonstrated Normal left main coronary artery, First diagonal vessel with 90% long proximal stenosis, Left anterior descending artery with mild disease ,Nondominant left circumflex artery with first obtuse marginal branch with 70% stenosis, Totally occluded right coronary artery with [id number] collaterals ,Low normal left ventricular ejection fraction noted on echocardiogram with dilated right ventricle 2. Acute hypoxic respiratory failure ? Multifactorial including acute congestive heart failure, suspected PE as well as pneumonia patient placed on noninvasive ventilation Airvo. Consult placed to associate medical director notes and recommendations reviewed ? 08/09/2023.Patient seen remains on noninvasive ventilation on BiPAP. Given his significant oxygen requirement decision was made for patient to undergo CTA of the chest to evaluate possible clot burden. ? 08/10/2023; CTA of the chest demonstrated evidence of pulmonary embolism, bilateral pulmonary infiltrates as well as bilateral pleural effusion right greater than left. ? 08/11/2023; respiratory status continues to worsen plan is for patient to undergo elective intubation ? 08/12/2023; Patient was electively intubated the day prior due to worsening respiratory failure. Remained stable on the vent. Plan is for patient to undergo bronchoscopy ? 08/13/2023 remains stable on the vent ? 08/14/2023; patient remains stable on the vent. Has some bloody aspirate from his suction tubing H&H however remained stable. 3. Acute VTE (RLE DVT and PE) -Patient underwent VQ scan which was nonconclusive lower extremity duplex demonstrated acute right lower extremity DVT. Patient is on heparin The estimated ejection fraction is 55 %. Unable to assess diastolic dysfunction. Moderately dilated right ventricle. Trivial mitral valve insufficiency. ? 08/10/2023 CTA demonstrated evidence of pulmonary embolism (There is evidence of a intraluminal filling defects in small branches in the right lower lobe suggestive of small pulmonary emboli. No big thrombus is seen.) Patient remains on apixaban plan is to hold and transition to heparin for patient to undergo ultrasound-guided thoracocentesis ? 08/14/2023 patient remains on heparin drip. 4. Acute congestive heart failure with preserved ejection fraction -Echo from 08/04/2023 demonstrated EF of 55%. Patient management strict input and output, fluid restriction as well as diuretic therapy with furosemide 5. Bilateral pleural effusions right greater than left with diffuse bilateral -Plan is for patient to undergo ultrasound-guided thoracocentesis. Patient systemic anticoagulation with apixaban to be held restarted on heparin ? 08/12/2023; Patient also underwent successful ultrasound-guided thoracentesis of the right hemithorax with 1.2 L of fluid removed. . 6. Suspected pneumonia CT of the chest demonstrated bilateral pulmonary infiltrates involving both upper and lower lobes. Patient remains on broad-spectrum antibiotic therapy ? 08/13/2023; sputum cultures grew Stenotrophomonas maltophilia. Patient antibiotic therapy subsequently adjusted 7. Chronic kidney disease stage IIIb ? Monitoring kidney function ? 08/11/2023; kidney function continues to worsen following diagnostician as well as diuretic therapy nephrology on board ? 08/13/2023 patient kidney function did worsen necessitating initiation of hemodialysis by nephrology 8. Presence of solitary kidney ? 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 Hypokalemia ? Corrected per protocol repeat labs ordered for subsequent management 10. Hypertension - Blood pressure controlled, patient is on amlodipine continue also on chlorthalidone held 11. Acute cystitis ? Patient remains on broad-spectrum antibiotics Time spent in the patient's overall evaluation,decision-making process, review of diagnostic data, adjustment of management, discussion with other providers, nursing nursing and ancillary staff involved in patient's care documentation, 40 Minutes Charges/Coding Visit Charges Inpatient E&M: 90004 Subs Hosp L2
[2023-08-14] MEDS: Chlorhexidine 15 ML PO ×2 (07:48→20:37)
[2023-08-14] MEDS: CHLORHEXIDINE GLUC 2% CLOTH 1 EACH TOWELETTE TOPICAL (07:48)
[2023-08-14] MEDS: Aspirin 81 MG TAB.CHEW GT (07:49)
[2023-08-14] MEDS: Pantoprazole Sodium 40 MG in 0.9% Normal Saline (100mL MB+) 100 ML 330 MG IV (08:03)
--- NOTE | 2023-08-14 08:40 | PN.CARD_ITS ---
Subjective Subjective Patient seen and evaluated. Events of yesterday noted. Objective Data Vital Signs: Vital Signs Temp Pulse Resp BP Pulse Ox O2 Del Method O2 Flow Rate 97.4 F L 74 16 98/65 97 Mechanical Ventilator 60 08/14/23 08:00 08/14/23 08:00 08/14/23 08:00 08/14/23 08:00 08/14/23 08:00 08/14/23 08:00 08/14/23 04:00 FiO2 50 08/14/23 08:00 Oxygen Flow Rate (L/min) 60 Oxygen Delivery Method Mechanical Ventilator Weight: 185 lb 3.013 oz Body Mass Index (BMI) 29.7 Intake & Output: Intake and Output for Last 24 Hours 08/12/23 08/13/23 08/14/23 23:59 23:59 23:59 Intake Total 945.11 / 1068.31 1271.96 / 1431.76 547.30 / 547.30 Output Total 289 / 369 835 / 1035 350 / 350 Balance 656.11 / 699.31 436.96 / 396.76 197.30 / 197.30 Lab / Micro Data 08/14/23 01:45 08/14/23 01:45 Labs: Laboratory Results - last 24 hr 08/12/23 12:29: Fluid Source BRONCHIAL LAVAGE, Fluid Color PINK, Fluid Appearance TURBID, Fluid WBC 9049, Fluid RBC 515, Fluid Tot Cell Count TNP, Fluid Neutrophils 71, Fluid Lymphocytes 18, Fluid Other Cells 11, Fl Pathologist Comment August follow 08/13/23 12:50: APTT 61.4 H 08/13/23 14:00: Hgb 10.1 L, Hct 33.0 L 08/14/23 01:45: WBC 14.6 H, RBC 3.86 L, Hgb 9.8 L 08/14/23 01:45: Hgb Cancelled, Hct 32.2 L 08/14/23 01:45: Hct Cancelled, MCV 83.4, MCH 25.4 L, MCHC 30.4 L, RDW Std Deviation 49.0 H, RDW Coeff of Raghavendra 16.4 H, Plt Count 389, MPV 12.3 H, Immature Gran % (Auto) 1.700 H, Neut % (Auto) 89.9 H, Lymph % (Auto) 2.9 L, [place] % (Auto) 5.3, Eos % (Auto) 0.0, Baso % (Auto) 0.2, Absolute Neuts (auto) 13.2 H, Absolute Lymphs (auto) 0.43 L, Nucleated RBC % 0.3, Diff Path Review Cancelled, Sodium 135 L, Potassium 4.4, Chloride 96 L, Carbon Dioxide 27.0, Anion Gap 12, BUN 110 H*, Creatinine 3.67 H, Estim Creat Clear Calc 18.38, Est GFR (MDRD) Af Amer 21 L , Est GFR (MDRD) Non-Af 17 L, BUN/Creatinine Ratio 30.0 H, Glucose 231 H, Calci um 8.7, Total Bilirubin 0.40, AST 27, ALT 37, Alkaline Phosphatase 54, Total Protein 5.9 L, Albumin 2.4 L, Globulin 3.5, Albumin/Globulin Ratio 0.7 L 08/14/23 04:12: APTT 64.9 H Micro: Microbiology 08/11/23 09:59 Sputum, Induced/Lukens Gram Stain - Final 08/11/23 09:59 Sputum, Induced/Lukens Respiratory Culture - Final Stenotrophomonas maltophilia 08/11/23 15:14 Fluid - Pleural (Lung) Gram Stain - Final 08/11/23 15:14 Fluid - Pleural (Lung) Body Fluid Culture - Preliminary No growth-Final to follow 08/11/23 15:14 Fluid - Pleural (Lung) Anaerobic Culture - Preliminary No growth in 48 hours. 08/12/23 12:29 Wash - Bronchial Gram Stain - Final 08/12/23 12:29 Wash - Bronchial Respiratory Culture - Preliminary Gram negative edd ABG Data ABG results: ABG 08/14/23 04:34 Specimen Type ART Sample Site L Radial pH 7.46 H Bicarbonate Actual 24.2 Total CO2 25 Base Excess 0 O2 Saturation 98 O2 % 50.0 ABG pCO2 33.7 L ABG pO2 90 Abhijit Test Positive Respiration Rate 16 O2 Delivery Device Adult Vent Vent Mode AC Tidal Volume 500.0 POC PEEP 10 Cardiology Labs/Tests 08/13/23 12:50: APTT 61.4 H 08/13/23 14:00: Hgb 10.1 L, Hct 33.0 L 08/14/23 01:45: WBC 14.6 H, RBC 3.86 L, Hgb 9.8 L 08/14/23 01:45: Hgb Cancelled, Hct 32.2 L 08/14/23 01:45: Hct Cancelled, MCV 83.4, MCH 25.4 L, MCHC 30.4 L, Plt Count 389, MPV 12.3 H, Immature Gran % (Auto) 1.700 H, Neut % (Auto) 89.9 H, Lymph % (Auto) 2.9 L, [place] % (Auto) 5.3, Eos % (Auto) 0.0, Baso % (Auto) 0.2, Absolute Neuts (auto) 13.2 H, Nucleated RBC % 0.3, Sodium 135 L, Potassium 4.4, Chloride 96 L, Carbon Dioxide 27.0, Anion Gap 12, BUN 110 H*, Creatinine 3.67 H, Est GFR (MDRD) Af Amer 21 L, Est GFR (MDRD) Non-Af 17 L, BUN/Creatinine Ratio 30.0 H, Glucose 231 H, Calcium 8.7, Total Bilirubin 0.40 08/14/23 04:12: APTT 64.9 H 08/14/23 04:34: pH 7.46 H, Bicarbonate Actual 24.2, Base Excess 0, O2 Saturation 98, ABG pCO2 33.7 L, ABG pO2 90, Abhijit Test Positive Rhythm: EKG: ECHO: Stress Test: Cardiac Cath: PCI: CT Surgery: Holter monitor: EPS: PPM: CXR: Chest CT Scan: Radiography Diagnostic Testing: Radiology Impression Chest X-Ray 08/14/23 00:31 IMPRESSION: Bilateral pulmonary airspace disease/infiltrate Electronically Signed: Rito Harrell MD at 2:52 EDT , Physical Exam Const alert, oriented x3 and no apparent distress General Appearance: cooperative HEENT hearing grossly normal bilaterally Head and Scalp: atraumatic Eyes EOMs intact bilaterally Neck General: normal visual inspection Chest inspection of chest normal and palpation of chest normal Resp normal respiratory effort Auscultation: clear to auscultation bilaterally Cardio regular rate, regular rhythm, S1 normal heart sound and S2 normal heart sound Jugular Venous Distention: JVD GI normal to inspection, nondistended, normoactive bowel sounds Extremity normal capillary refill and no pedal edema Peripheral Pulses: Yes pulses 2+ throughout and femoral pulses present Skin no rashes or lesions noted Neuro oriented x3 and CN's II-XII intact bilaterally Psych Appearance: grossly normal and appropriate Assessment & Plan Assessment/Plan (1) Non-STEMI (non-ST elevated myocardial infarction): PLAN: Patient underwent cardiac catheterization with 15 cc of contrast agent only. It demonstrated the following: * Normal left main coronary artery * First diagonal vessel with 90% long proximal stenosis * Left anterior descending artery with mild disease * Nondominant left circumflex artery with first obtuse marginal branch with 70% stenosis * Totally occluded right coronary artery with [id number] collaterals * Low normal left ventricular ejection fraction noted on echocardiogram with dilated right ventricle. * Would recommend medical therapy for the coronary artery disease . * * * would continue to follow peripherally. * It appears that he is not progressing appropriately from the respiratory standpoint.
--- NOTE | 2023-08-14 10:41 | PN.RENAL_ITS ---
Subjective Subjective Remains intubated. Overnight had some bleeding noted from ET tube. FiO2 50% and PEEP of 20%. Urine output about 350 cc. Objective Data Objective Data Vital Signs: Vital Signs Temp Pulse Resp BP Pulse Ox O2 Del Method O2 Flow Rate 97.4 F L 68 18 92/61 96 Mechanical Ventilator 60 08/14/23 08:00 08/14/23 10:00 08/14/23 10:00 08/14/23 10:00 08/14/23 10:00 08/14/23 10:00 08/14/23 04:00 FiO2 50 08/14/23 10:00 Oxygen Flow Rate (L/min) 60 Oxygen Delivery Method Mechanical Ventilator Weight: 84 kg Body Mass Index (BMI) 29.7 Intake & Output: Intake and Output for Last 24 Hours 08/12/23 08/13/23 08/14/23 23:59 23:59 23:59 Intake Total 945.11 / 1068.31 1271.96 / 1431.76 547.30 / 547.30 Output Total 289 / 369 835 / 1035 350 / 350 Balance 656.11 / 699.31 436.96 / 396.76 197.30 / 197.30 Lab / Micro Data 08/14/23 01:45 08/14/23 01:45 Labs: Laboratory Results - last 24 hr 08/12/23 12:29: Fluid Source BRONCHIAL LAVAGE, Fluid Color PINK, Fluid Appearance TURBID, Fluid WBC 9049, Fluid RBC 515, Fluid Tot Cell Count TNP, Fluid Neutrophils 71, Fluid Lymphocytes 18, Fluid Other Cells 11, Fl Pathologist Comment May follow 08/13/23 12:50: APTT 61.4 H 08/13/23 14:00: Hgb 10.1 L, Hct 33.0 L 08/14/23 01:45: WBC 14.6 H, RBC 3.86 L, Hgb 9.8 L 08/14/23 01:45: Hgb Cancelled, Hct 32.2 L 08/14/23 01:45: Hct Cancelled, MCV 83.4, MCH 25.4 L, MCHC 30.4 L, RDW Std Deviation 49.0 H, RDW Coeff of Raghavendra 16.4 H, Plt Count 389, MPV 12.3 H, Immature Gran % (Auto) 1.700 H, Neut % (Auto) 89.9 H, Lymph % (Auto) 2.9 L, [place] % (Auto) 5.3, Eos % (Auto) 0.0, Baso % (Auto) 0.2, Absolute Neuts (auto) 13.2 H, Absolute Lymphs (auto) 0.43 L, Nucleated RBC % 0.3, Diff Path Review Cancelled, Sodium 135 L, Potassium 4.4, Chloride 96 L, Carbon Dioxide 27.0, Anion Gap 12, BUN 110 H*, Creatinine 3.67 H, Estim Creat Clear Calc 18.38, Est GFR (MDRD) Af Amer 21 L , Est GFR (MDRD) Non-Af 17 L, BUN/Creatinine Ratio 30.0 H, Glucose 231 H, Calcium 8.7, Total Bilirubin 0.40, AST 27, ALT 37, Alkaline Phosphatase 54, Total Protein 5.9 L, Albumin 2.4 L, Globulin 3.5, Albumin/Globulin Ratio 0.7 L 08/14/23 04:12: APTT 64.9 H Micro: Microbiology 08/11/23 15:14 Fluid - Pleural (Lung) Gram Stain - Final 08/11/23 15:14 Fluid - Pleural (Lung) Body Fluid Culture - Final Culture exhibits no growth. 08/11/23 15:14 Fluid - Pleural (Lung) Anaerobic Culture - Preliminary No growth in 48 hours. 08/12/23 12:29 Wash - Bronchial Gram Stain - Final 08/12/23 12:29 Wash - Bronchial Respiratory Culture - Final Stenotrophomonas maltophilia 08/11/23 09:59 Sputum, Induced/Lukens Gram Stain - Final 08/11/23 09:59 Sputum, Induced/Lukens Respiratory Culture - Final Stenotrophomonas maltophilia 08/12/23 10:49 Nasal Secretion SARS-CoV-2 Antigen (Rapid) - Final 08/04/23 00:00 Sputum, Expectorated/Coughed Gram Stain - Final 08/04/23 00:00 Sputum, Expectorated/Coughed Respiratory Culture - Final 08/03/23 21:57 Urine, Random Legionella Antigen - Final 08/03/23 21:57 Urine, Random Streptococcus pneumoniae Antigen (M - Final 08/03/23 18:30 Mucosa - Nose SARS-CoV-2, Influenza & RSV (PCR) - Final ABG Data ABG results: ABG 08/14/23 04:34 Specimen Type ART Sample Site L Radial pH 7.46 H Bicarbonate Actual 24.2 Total CO2 25 Base Excess 0 O2 Saturation 98 O2 % 50.0 ABG pCO2 33.7 L ABG pO2 90 Abhijit Test Positive Respiration Rate 16 O2 Delivery Device Adult Vent Vent Mode AC Tidal Volume 500.0 POC PEEP 10 Radiography Diagnostic Testing: Radiology Impression Chest X-Ray 08/14/23 00:31 IMPRESSION: Bilateral pulmonary airspace disease/infiltrate Electronically Signed: Rito Harrell MD at 2:52 EDT , Physical Exam Narrative on vent support no obvious distress s1s2 no murmurs lungs clear anteriorly abdomen soft no edema indwelling de [place] Const alert and oriented x3 General Appearance: well developed Orientation / Consciousness: oriented to person, oriented to place and oriented to time HEENT normocephalic Neck no lymphadenopathy Resp Auscultation: crackles right and left GI non-tender Auscultation: normoactive bowel sounds Neuro Sensorium / Orientation: awake and alert Psych cooperative Assessment & Plan Assessment/Plan (1) TRENA (acute kidney injury): PLAN: 72-year-old male with past medical history significant for 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 Terry (after surgery, his baseline creatinine has been around 2.0), presented to the emergency room on 08/02 with complaints of shortness of breath with exertion, admitted for non-STEMI, suspected pneumonia. - TRENA superimposed on CKD; baseline creatinine around 2.0. Acute renal failure was felt to be related to cardiorenal syndrome however also concern for vasculitis therefore sent off serologies. Serology results: p-ANCA, c-ANCA, d ouble-stranded DNA, glomerular basement membrane antibody, C3 all normal. C4 complement slightly elevated at 46. Quite possibly TRENA from ischemic ATN. SCr 2 on admission and for few days SCr ranging around 2.4-2.6mg/dL even while on lasix gtt. 08/09 SCr 3.02 and lasix gtt stopped. Started on dialysis 08/12/2023. Received dialysis 08/11 and 08/12. Minimal fluid removal due to low blood pressure. - Acute hypoxemic respiratory failure with unclear etiology--> did not respond to IV diuresis. Did not respond to IV steroids. Bronchial cultures are growing stenotropomonas. management as per ICU CT angiogram: No big thrombus seen, small pulmonary emboli, bilateral pleural effusions right greater than left with diffuse bilateral pulmonary infiltrates involving upper and lower lobes. - NSTEMI, acute decompensated heart failure with preserved EF; cardiac cath 08/07 (2) Chronic kidney disease, stage 3b:
[2023-08-14] MEDS: Propofol 10MG/Ml 1,000 MG/100 ML Bottle 10.1 MG CONT INF ×3 (11:29→23:00)
--- NOTE | 2023-08-14 11:50 | PCM.PN.TICU ---
Objective Data Objective Data Vital Signs: Vital Signs Last response Temperature 36.3 C L 08/14/23 08:00 Temperature Source Temporal 08/14/23 08:00 Pulse Rate 70 08/14/23 11:11 Pulse Strength Normal (2+) 08/14/23 08:11 Respiratory Rate 16 08/14/23 11:11 Respiratory Effort Mechanically Ventilated 08/14/23 08:00 Respiratory Depth Normal 08/14/23 08:00 Respiratory Pattern Normal 08/14/23 11:11 Blood Pressure 95/64 08/14/23 11:00 Blood Pressure Mean 74 08/14/23 11:00 Blood Pressure Source Monitor 08/14/23 11:00 Blood Pressure Position Semi-Fowlers 08/14/23 11:00 Blood Pressure Location Left Arm 08/14/23 11:00 Pulse Ox 98 08/14/23 11:11 Oxygen Delivery Method Mechanical Ventilator 08/14/23 11:00 Oxygen Flow Rate (L/min) 60 08/14/23 04:00 Fraction of Inspired Oxygen (FIO2) 50 08/14/23 11:11 I&O: I&O Last 24 Hours 08/13/23 08/13/23 08/14/23 11:59 23:59 11:59 Intake Total 530.29 / 1431.76 741.67 / 1431.76 642.48 / 642.48 Output Total 280 / 1035 555 / 1035 475 / 475 Balance 250.29 / 396.76 186.67 / 396.76 167.48 / 167.48 I&O: Total Stay 08/03/23 13:43 thru 08/14/23 11:44 Intake Total 33901.61 Output Total 98108 Balance -2412.39 Current Meds Ordered / Administered: Current meds ordered / Administered Generic Name Dose Route Start Last Admin Trade Name Freq PRN Reason Stop Dose Admin Acetaminophen 650 mg 08/12/23 03:35 Acetaminophen 650 Mg/20 Ml Udc GT Q6H PRN PRN Pain 1-10 Or Fever >100.7 Albuterol Sulfate 2.5 mg 08/03/23 17:36 08/05/23 04:31 Albuterol 2.5 Mg/3 Ml Vial.Neb. INHALATION 2.5 mg Q2H PRN PRN Administration SHORTNESS OF BREATH Aspirin 81 mg 08/12/23 08:00 08/14/23 07:49 Aspirin 81 Mg Tab.Chew GT 81 mg BREAKFAST REY Administration Atorvastatin Calcium 40 mg 08/12/23 22:00 08/13/23 22:13 Atorvastatin Calcium 40 Mg Tablet GT 40 mg QHS REY Administration Calamine/Phenol 1 applic 08/13/23 22:00 08/14/23 11:17 Menthol/Lanolin/Calamine/Znox 113 Gm Tube TOPICAL 1 applic TID REY Administration Protocol Chlorhexidine Gluconate 1 each 08/11/23 10:00 08/14/23 07:48 Chlorhexidine Gluc 2% Cloth 1 Each Towelette TOPICAL 1 each DAILY REY Administration Chlorhexidine Gluconate 15 ml 08/11/23 22:00 08/14/23 07:48 Chlorhexidine 15 Ml PO 15 ml BID REY Administration Guaifenesin 600 mg 08/03/23 22:00 08/14/23 07:48 Guaifenesin 600 Mg Tablet PO Not Given BID REY Heparin Sodium (Porcine) 0 unit 08/10/23 07:40 08/12/23 14:04 Heparin Injection (Vial) 5,000 Unit/Ml Vial IV 3,000 unit UD PRN Administration dose adjustment Protocol Sodium Chloride 250 mls @ 15 mls/hr 08/04/23 23:09 08/08/23 02:14 IV Infused .[id number] PRN Infusion Additional IVPB Infusion Sodium Chloride 250 mls @ 15 mls/hr 08/04/23 23:09 IV .[id number] PRN Saline Flush Heparin Sodium/Dextrose 25,000 units in 250 mls @ 12 mls/hr 08/10/23 07:30 08/14/23 04:40 CONT INF 900 units/hr .[id number] REY 9 mls/hr Titration Protocol As Directed Propofol 1,000 mg in 100 mls @ 5.04 mls/hr 08/11/23 07:55 08/14/23 11:29 Diprivan CONT INF 20 mcg/kg/min .Q12H REY 10.1 mls/hr Administration Protocol 10 MCG/KG/MIN Fentanyl 100 mls @ 5 mls/hr 08/11/23 07:55 08/14/23 11:00 CONT INF 100 mcg/hr UD REY 10 mls/hr Titration Protocol 50 MCG/HR Pantoprazole Sodium 40 mg/ 110 mls @ 330 mls/hr 08/11/23 10:00 08/14/23 08:31 Sodium Chloride IV Infused Q24 REY Infusion Enteral Nutritional Formula 1,000 mls @ 10 mls/hr 08/12/23 17:15 08/14/23 00:00 Vital Af 1.2 Kam Liquid GT 10 mls/hr .Q48H REY Infusion Levofloxacin 500 mg in 100 mls @ 100 mls/hr 08/15/23 10:00 Levaquin Iv IV Q48 REY Methylprednisolone 40 mg 08/10/23 12:00 08/14/23 11:17 Methylprednisolone 40 Mg/Ml Vial IV 40 mg Q6 REY Administration Metoprolol Tartrate 12.5 mg 08/12/23 10:00 08/14/23 07:49 Metoprolol Tartrate 25 Mg Tablet GT Not Given DAILY [facility] Protocol Morphine Sulfate 2 - 4 mg 08/03/23 17:36 08/05/23 11:44 Morphine 2 Mg/Ml Syringe IV 4 mg Q3H PRN PRN Administration Pain Score 6-10 Ondansetron HCl 4 mg 08/03/23 17:36 Ondansetron 4 Mg/2 Ml Vial IV Q8H PRN PRN NAUSEA/VOMITING Oxycodone HCl 5 mg 08/12/23 03:36 Oxycodone 5 Mg Tablet GT Q4H PRN PRN Pain Score 4-10 Sodium Chloride 10 - 40 ml 08/03/23 17:59 08/13/23 22:21 0.9% Saline Lock 10 Ml Syringe IV 20 ml UD PRN Administration SALINE FLUSH Lab / Micro Data 08/14/23 01:45 08/14/23 01:45 Labs: Laboratory Results - last 24 hr 08/13/23 12:50: APTT 61.4 H 08/13/23 14:00: Hgb 10.1 L, Hct 33.0 L 08/14/23 01:45: WBC 14.6 H, RBC 3.86 L, Hgb 9.8 L 08/14/23 01:45: Hgb Cancelled, Hct 32.2 L 08/14/23 01:45: Hct Cancelled, MCV 83.4, MCH 25.4 L, MCHC 30.4 L, RDW Std Deviation 49.0 H, RDW Coeff of Raghavendra 16.4 H, Plt Count 389, MPV 12.3 H, Immature Gran % (Auto) 1.700 H, Neut % (Auto) 89.9 H, Lymph % (Auto) 2.9 L, [place] % (Auto) 5.3, Eos % (Auto) 0.0, Baso % (Auto) 0.2, Absolute Neuts (auto) 13.2 H, Absolute Lymphs (auto) 0.43 L, Nucleated RBC % 0.3, Diff Path Review Cancelled, Sodium 135 L, Potassium 4.4, Chloride 96 L, Carbon Dioxide 27.0, Anion Gap 12, BUN 110 H*, Creatinine 3.67 H, Estim Creat Clear Calc 18.38, Est GFR (MDRD) Af Amer 21 L, Est GFR (MDRD) Non-Af 17 L, BUN/Creatinine Ratio 30.0 H, Glucose 231 H, Calcium 8.7, Total Bilirubin 0.40, AST 27, ALT 37, Alkaline Phosphatase 54, Total Protein 5.9 L, Albumin 2.4 L, Globulin 3.5, Albumin/Globulin Ratio 0.7 L 08/14/23 04:12: APTT 64.9 H Micro: Microbiology 08/11/23 15:14 Fluid - Pleural (Lung) Gram Stain - Final 08/11/23 15:14 Fluid - Pleural (Lung) Body Fluid Culture - Final Culture exhibits no growth. 08/11/23 15:14 Fluid - Pleural (Lung) Anaerobic Culture - Preliminary No growth in 48 hours. 08/12/23 12:29 Wash - Bronchial Gram Stain - Final 08/12/23 12:29 Wash - Bronchial Respiratory Culture - Final Stenotrophomonas maltophilia 08/11/23 09:59 Sputum, Induced/Lukens Gram Stain - Final 08/11/23 09:59 Sputum, Induced/Lukens Respiratory Culture - Final Stenotrophomonas maltophilia ABG Data ABG results: ABG 08/14/23 04:34 Specimen Type ART Sample Site L Radial pH 7.46 H Bicarbonate Actual 24.2 Total CO2 25 Base Excess 0 O2 Saturation 98 O2 % 50.0 ABG pCO2 33.7 L ABG pO2 90 Abhijit Test Positive Respiration Rate 16 O2 Delivery Device Adult Vent Vent Mode AC Tidal Volume 500.0 POC PEEP 10 Imaging Radiology Impression Chest X-Ray 08/14/23 00:31 IMPRESSION: Bilateral pulmonary airspace disease/infiltrate Electronically Signed: Rito Harrell MD at 2:52 EDT , Assessment and Plan . Assessment and plan: Patient seen and examined Chart and data reviewed He is sedated - awakens w/ SAT NSR / HD stable HD w/ minimal UF performed yesterday - next planned TUE MV 8 LPM, PIP 27, O2 0.5, PEEP 10 ABG, pCXR reviewed BAL - S. malto IV UFH - modest bloody airway secretions GEN NAD, sedated VS as above HEENT DANIEL NECK obese COR RRR CHEST coarse ABD soft EXT minimal edema SKIN w/d JESICA NF All data reviewed IMP 1. Acute respiratory failure requiring MV support 2. Diffuse pulmonary infiltrates 3. Possible bacterial PNA - S. malto on CX 4. CAD/ASCVD 5. Renal insufficiency - requiring [employer] 6. VTED REC -MV support -SBT once oxygenation improved -[employer] w/ UF - planned TUE -ABX - Levaquin -IV UFH -enteral nutrition as tolerated -anti-PLT Critical Care Time: 50 min The entirety of this encounter was done via Telemedicine
[2023-08-14] MEDS: Vital AF 1.2 Cal Liquid 1,000 ML 10 ML GT (15:52)
[2023-08-14] MEDS: 0.9% Saline Lock 10 ML Syringe IV (19:58)
[2023-08-14] MEDS: Atorvastatin Calcium 40 MG Tablet GT (20:38)
[2023-08-15] VITALS (46 sets, daily range): BP systolic 95–205; BP diastolic 56–76; PULSE 16–87; RESP 15–18; TEMP 35.9–37.3; O2SAT 40–98; BMI 29.8; BMI 29.7
[2023-08-15] MEDS: fentaNYL drip 100 ML 10 MCG CONT INF ×2 (01:47→12:48)
[2023-08-15] MEDS: HEPARIN/D5w 25,000 UNITS 25,000 UNITS/250 ML IV.SOLN. 9 UNITS CONT INF (02:27)
[2023-08-15 05:03] LABS: Absolute Lymphocyte Count 0.54 X10^3/uL (0.83-4.51); Absolute Neutrophil Count 12.6 X10^3/uL (2.0-7.7); Basophil# 0.02 X10^3/uL; Basophil% 0.1 % (0-1); Hematocrit 31.5 % (40-54); Hemoglobin 9.6 g/dL (13.0-16.5); Lymphocyte # 0.54 X10^3/ul (0.83-4.51); Lymphocyte % 3.8 % (19-41); Mean Corp Hgb Conc 30.5 g/dL (32-36); Mean Corpuscular Hgb 25.5 pg (27.0-32.0); Mean Corpuscular Volume 83.8 fL (80-94); Mean Platelet Vol. 12.2 fl (6.2-12.0); Monocyte# 0.66 X10^3/uL; Monocyte% 4.7 % (0-10); NRBC Flagged by Analyzer 0.7 % (0-5); Neutrophil # 12.57 X10^3/uL (2.7-7.7); Neutrophil % 88.8 % (47-70); POSITIVE DIFFERENTIAL YES; Platelet Count 357 K/mm3 (150-450); RBC Distribution Width CV 16.4 % (11.6-14.6); RBC Distribution Width SD 49.1 fl (35.1-43.9); Red Blood Count 3.76 M/mm3 (4.6-6.2); White Blood Count 14.2 K/mm3 (4.4-11.0)
[2023-08-15 05:41] LABS: Anion Gap 12 (5-15); BUN 126 mg/dL (7-18); BUN/Creat Ratio 30.2 RATIO (10-20); Chloride 98 mmol/L (98-107); Creatinine, Serum 4.17 mg/dL (0.70-1.30); EST Glomerular Filtration Rate 15 mL/min (>60); Est Glom Filt Rate - Afr Amer 18 mL/min (>60); Glucose 274 mg/dL (74-106); Potassium 4.3 mmol/L (3.5-5.1); Sodium Level 136 mmol/L (136-145)
[2023-08-15] MEDS: Menthol/Lanolin/Calamine/Znox 113 GM Tube 1 APPLIC TOPICAL ×3 (05:53→20:50)
--- NOTE | 2023-08-15 06:49 | PCM.PN.INT ---
Assessment & Plan Assessment/Plan (1) Acute hypoxic respiratory failure: (2) Pleural effusion, right: (3) TRENA (acute kidney injury): PLAN: Plan RECOMMENDATIONS: 1. Continue assist-control mode mechanical ventilation. Wean FiO2 and PEEP for saturations greater than 90%. 2. Continue antimicrobials. 3. Continue weight-based heparin infusion for now. 4. Continue corticosteroids. Wean as tolerated. 5. Increase tube feeding rate today. 6. Continue appropriate GI prophylaxis. IMPRESSIONS: 1. Acute hypoxemic respiratory failure Unclear etiology. Initially, the patient's respiratory decompensation was felt to be a consequence of decompensated heart failure with preserved ejection fraction in the setting of an NSTEMI. Subsequent attempts at volume optimization led to no significant improvement in his respiratory status. Other potential etiologies include pulmonary embolism along with infectious versus inflammatory pneumonia. As such, the patient has been maintained on antimicrobials and pulse dose steroids. Upon intubation, the patient was noted to have a significant amount of bleeding from his endotracheal tube, raising the suspicion for diffuse alveolar hemorrhage. Nevertheless, subsequent bronchoscopy was not consistent with DAH. The patient underwent thoracentesis as well from the right hemithorax which appeared to be transudative in nature. Cardiac catheterization has already been completed, for which medical therapy was recommended. For now, we will plan to continue current supportive measures and attempt to wean FiO2 and PEEP to maintain saturations at or above 90%. 2. NSTEMI/acute decompensated heart failure with preserved ejection fraction Management per cardiology. 3. Acute on chronic kidney disease Nephrology is following. The patient's worsening renal insufficiency is likely multifactorial and related to prerenal etiology coupled with possible contrast nephropathy from recent catheterization and CTA chest. Continue ongoing dialysis support per nephrology recommendations. TIME: 33 minutes, independent of procedures, was spent addressing the patient's acute hypoxemic respiratory failure, NSTEMI, acute decompensated heart failure with preserved ejection fraction, acute on chronic kidney disease, review of all data and collaboration with care team. Subjective Subjective The patient was seen and examined at the bedside this morning. Events from the last 24 hours have been reviewed. The patient is currently afebrile, hemodynamically stable and maintaining appropriate oxygen saturations on assist-control mode mechanical ventilation with an FiO2 requirement of 40% and PEEP of 10. Today is ventilator day #5. The patient remains sedated on fentanyl and propofol. He did have some bloody endotracheal tube secretions noted over the course of the weekend. He continues to receive dialysis support with improving [place] output. The patient is documented to be overall net -2.1 L for the hospitalization. White count is stable at 14,000. Objective Data Objective Data The patient's most recent lab work, culture data and imaging studies have all been personally reviewed. Surface echocardiogram demonstrated normal LV size and function with an ejection fraction of 55%. Doppler study was positive for right-sided DVT. Sputum culture was positive for stenotrophomonas. Vital Signs: Vital Signs Temp Pulse Resp BP Pulse Ox O2 Del Method O2 Flow Rate 98.0 F 74 16 104/71 92 Mechanical Ventilator 60 08/15/23 04:00 08/15/23 06:00 08/15/23 06:00 08/15/23 06:00 08/15/23 06:00 08/15/23 06:00 08/15/23 06:00 FiO2 40 08/15/23 06:00 Oxygen Flow Rate (L/min) 60 Oxygen Delivery Method Mechanical Ventilator Weight: 184 lb 11.958 oz Body Mass Index (BMI) 29.8 Intake & Output: Intake and Output for Last 24 Hours 08/13/23 08/14/23 08/15/23 23:59 23:59 23:59 Intake Total 1271.96 / 1431.76 1186.97 / 1347.07 318.05 / 318.05 Output Total 835 / 1035 575 / 900 525 / 525 Balance 436.96 / 396.76 611.97 / 447.07 -206.95 / -206.95 Lab / Micro Data Attestation: I reviewed the patient's lab results. 08/15/23 04:50 08/15/23 04:50 Labs: Laboratory Results - last 24 hr 08/15/23 04:50: WBC 14.2 H, RBC 3.76 L, Hgb 9.6 L, Hct 31.5 L, MCV 83.8, MCH 25.5 L, MCHC 30.5 L, RDW Std Deviation 49.1 H, RDW Coeff of Raghavendra 16.4 H, Plt Count 357, MPV 12.2 H, Immature Gran % (Auto) 2.600 H, Neut % (Auto) 88.8 H, Lymph % (Auto) 3.8 L, [place] % (Auto) 4.7, Eos % (Auto) 0.0, Baso % (Auto) 0.1, Absolute Neuts (auto) 12.6 H, Absolute Lymphs (auto) 0.54 L, Nucleated RBC % 0.7, APTT 72.0 H, Sodium 136, Potassium 4.3, Chloride 98, Carbon Dioxide 26.0, Anion Gap 12, BUN 126 H*, Creatinine 4.17 H, Estim Creat Clear Calc 16.50, Est GFR (MDRD) Af Amer 18 L, Est GFR (MDRD) Non-Af 15 L, BUN/Creatinine Ratio 30.2 H, Glucose 274 H, Calcium 9.0 Micro: Microbiology 08/11/23 15:14 Fluid - Pleural (Lung) Gram Stain - Final 08/11/23 15:14 Fluid - Pleural (Lung) Body Fluid Culture - Final Culture exhibits no growth. 08/11/23 15:14 Fluid - Pleural (Lung) Anaerobic Culture - Preliminary No growth in 48 hours. 08/12/23 12:29 Wash - Bronchial Gram Stain - Final 08/12/23 12:29 Wash - Bronchial Respiratory Culture - Final Stenotrophomonas maltophilia 08/11/23 09:59 Sputum, Induced/Lukens Gram Stain - Final 08/11/23 09:59 Sputum, Induced/Lukens Respiratory Culture - Final Stenotrophomonas maltophilia 08/12/23 10:49 Nasal Secretion SARS-CoV-2 Antigen (Rapid) - Final 08/04/23 00:00 Sputum, Expectorated/Coughed Gram Stain - Final 08/04/23 00:00 Sputum, Expectorated/Coughed Respiratory Culture - Final 08/03/23 21:57 Urine, Random Legionella Antigen - Final 08/03/23 21:57 Urine, Random Streptococcus pneumoniae Antigen (M - Final 08/03/23 18:30 Mucosa - Nose SARS-CoV-2, Influenza & RSV (PCR) - Final ABG Data ABG results: ABG 08/11/23 10:13 Specimen Type ART Sample Site L Radial pH 7.47 H Bicarbonate Actual 36.1 H Total CO2 38 Base Excess 13 H O2 Saturation 99 O2 % 50.0 ABG pCO2 49.8 H ABG pO2 132 H Abhijit Test Positive Respiration Rate 14 O2 Delivery Device Adult Vent Vent Mode AC Tidal Volume 500.0 POC PEEP 10 Radiography Diagnostic Testing: Radiology Impression Chest X-Ray 08/11/23 08:50 IMPRESSION: Progressive bilateral airspace disease with a small right pleural effusion. The tip of the endotracheal tube is at 6.8 cm proximal to the zack. The tip of the orogastric tube is heading towards the gastroesophageal junction. Electronically Signed: Jack Garcia MD at 10:11 EDT , Chest X-Ray 08/11/23 14:30 IMPRESSION: Status post right thoracentesis. No evidence of pneumothorax. Electronically Signed: Jack Garcia MD at 15:09 EDT , KUB X-Ray 08/11/23 20:53 IMPRESSION: Orogastric tube noted with tip in the proximal to mid gastric fundus. Electronically Signed: David Dalton MD at 22:02 EDT , Physical Exam Const Constitutional Narrative: Intubated, sedated and mechanically ventilated. No ventilator dyssynchrony noted. HEENT normocephalic and head/scalp atraumatic Mouth: endotracheal tube in place and OG tube in place Eyes PERRL, EOMs intact bilaterally and conjunctivae normal Neck supple General: trachea midline Chest inspection of chest normal Resp Resp Narrative: Coarse mechanical breath sounds Auscultation: diminished lung sounds; Negative for rales, rhonchi or wheezes Cardio regular rate, regular rhythm, S1 normal heart sound and S2 normal heart sound GI normal to inspection, nondistended, normoactive bowel sounds Extremity no clubbing, cyanosis or edema Skin no rashes or lesions noted Neuro Sensorium / Orientation: sedated on vent Charges/Coding Procedures Hospitalists Procedures: 91163 Critical Care 1st Hr
--- NOTE | 2023-08-15 07:12 | PN.HOSP_ITS ---
Reason for Visit Reason for Visit: Exertional dyspnea Subjective Subjective Mr. Peña is a 72-year-old white male who presents emergency department at [facility] on 08/03/2023 with shortness of breath on exertion that started approximately 2 days prior to presentation. On presentation he was concerned that it may be related to some medication transitions that he had had recently at which time he transitioned off his lisinopril and his amlodipine was increased. 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 Upon presentation he was noted to have bilateral patchy ED infiltrates on his chest x-ray and his initial troponin was 13,391 with a BNP of 1259. The case was discussed with cardiology and he was started on a heparin drip and given aspirin. The patient reported he had no previous cardiac history. He underwent a partial nephrectomy and cystectomy in February and reported he had lost at least 20 pounds since that point in time. He denied lower extremity edema on presentation. He was also found to be hypokalemic potassium of 2.7 and his serum creatinine presentation was 2.02. Strep pneumo and Legionella tangents were negative. His COVID/flu/RSV PCR was negative. Sputum culture was collected and he was admitted to the intensive care unit and placed on BiPAP. PE was considered on admission however CTA was not able to be performed given his underlying renal disease and bilateral lower extremity Dop plers were ordered. Lower extremity Doppler revealed a acute right lower extremity DVT and he was already anticoagulated with a heparin drip. Upon admission he was evaluated by intensive care, cardiology, and nephrology. His respiratory status stabilized and the initial plan was to take him for cardiac catheterization which was performed on 08/08/2023 and revealed coronary artery disease with high-grade first diagonal vessel that was felt to be the culprit lesion and moderately severe disease in the circumflex and a totally occluded right coronary artery with [id number] collaterals. Medical therapy versus interval PCI was recommended at that time. He was placed on broad-spectrum antibiotics initially on admission with his infiltrates bilaterally and diuresed. He then had recurrent respiratory failure that required BiPAP. And given his increasing respiratory distress in oxygen demands a CTA of the chest was finally pursued. Echocardiogram was obtained prior to his cardiac cath eterization on 08/04/2023 which demonstrated an EF of 55%, indeterminate diastolic dysfunction and a moderately dilated RV. CTA of the chest was pursued due to his RV dysfunction and revealed bilateral pleural effusions as well as intraluminal filling defects in the small branches of the right lower lobe suggestive of pulmonary emboli with no large thrombus noted. Systemic steroids were added due to concern for COPD exacerbation his worsening respiratory status which continued to worsen and required intubation on 07/12/2023. He also subsequently underwent PICC line placement on 08/11/2023 and a right sided thoracentesis at which time 1200 cc of fluid was removed this was transudative in nature. Upon intubation, he was noted to have a significant mount of bleeding from the endotracheal tube raising suspicion for diffuse alveolar hemorrhage and bronchoscopy was pursued. Bronchoscopy was done on 08/12/2023 and showed erythema throughout the entire tracheobronchial tree with bronchial alveolar lavage performed sputum culture was found to have stenotrophomonas maltophilia that was sensitive to both Levaquin and Bactrim. He is currently on Levaquin therapy for antibiotics. Due to worsening renal function and decreasing urine output he was started on dialysis 08/12/2023 and received dialy sis on that day and on 08/13/2023 with minimal fluid removal due to low blood pressure. P-ANCA, c-ANCA, double-stranded DNA, glomerular basement membrane antibody, C3 were all found to be normal and his C4 complement was slightly elevated at 46. It was felt that he has TRENA from ischemic ATN. At this point he remains on mechanical ventilation for support along with antibiotics for treatment of his bacterial pneumonia and ongoing dialysis as per nephrology. No issues overnight. Currently on dialysis with plans to remove about a liter of fluid only. Objective Data Objective Data Vital Signs: Vital Signs Temp Pulse Resp BP Pulse Ox O2 Del Method O2 Flow Rate 98.0 F 79 16 109/71 92 Mechanical Ventilator 60 08/15/23 04:00 08/15/23 07:00 08/15/23 07:00 08/15/23 07:00 08/15/23 07:00 08/15/23 07:00 08/15/23 07:00 FiO2 40 08/15/23 07:00 Oxygen Flow Rate (L/min) 60 Oxygen Delivery Method Mechanical Ventilator Weight: 83.8 kg Body Mass Index (BMI) 29.8 Intake & Output: Intake and Output for Last 24 Hours 05/08/0208/14/23 08/15/23 23:59 23:59 23:59 Intake Total 1271.96 / 1431.76 1186.97 / 1347.07 358.25 / 358.25 Output Total 835 / 1035 575 / 900 525 / 525 Balance 436.96 / 396.76 611.97 / 447.07 -166.75 / -166.75 Lab / Micro Data 08/15/23 04:50 08/15/23 04:50 Labs: Laboratory Results - last 24 hr 08/15/23 04:50: WBC 14.2 H, RBC 3.76 L, Hgb 9.6 L, Hct 31.5 L, MCV 83.8, MCH 25.5 L, MCHC 30.5 L, RDW Std Deviation 49.1 H, RDW Coeff of Raghavendra 16.4 H, Plt Count 357, MPV 12.2 H, Immature Gran % (Auto) 2.600 H, Neut % (Auto) 88.8 H, Lymph % (Auto) 3.8 L, [place] % (Auto) 4.7, Eos % (Auto) 0.0, Baso % (Auto) 0.1, Absolute Neuts (auto) 12.6 H, Absolute Lymphs (auto) 0.54 L, Nucleated RBC % 0.7, APTT 72.0 H, Sodium 136, Potassium 4.3, Chloride 98, Carbon Dioxide 26.0, Anion Gap 12, BUN 126 H*, Creatinine 4.17 H, Estim Creat Clear Calc 16.50, Est GFR (MDRD) Af Amer 18 L, Est GFR (MDRD) Non-Af 15 L, BUN/Creatinine Ratio 30.2 H , Glucose 274 H, Calcium 9.0 Micro: Microbiology 08/11/23 15:14 Fluid - Pleural (Lung) Gram Stain - Final 08/11/23 15:14 Fluid - Pleural (Lung) Body Fluid Culture - Final Culture exhibits no growth. 08/11/23 15:14 Fluid - Pleural (Lung) Anaerobic Culture - Preliminary No growth in 48 hours. 08/12/23 12:29 Wash - Bronchial Gram Stain - Final 08/12/23 12:29 Wash - Bronchial Respiratory Culture - Final Stenotrophomonas maltophilia 08/11/23 09:59 Sputum, Induced/Lukens Gram Stain - Final 08/11/23 09:59 Sputum, Induced/Lukens Respiratory Culture - Final Stenotrophomonas maltophilia 08/12/23 10:49 Nasal Secretion SARS-CoV-2 Antigen (Rapid) - Final 08/04/23 00:00 Sputum, Expectorated/Coughed Gram Stain - Final 08/04/23 00:00 Sputum, Expectorated/Coughed Respiratory Culture - Final 08/03/23 21:57 Urine, Random Legionella Antigen - Final 08/03/23 21:57 Urine, Random Streptococcus pneumoniae Antigen (M - Final 08/03/23 18:30 Mucosa - Nose SARS-CoV-2, Influenza & RSV (PCR) - Final Physical Exam Const no apparent distress Constitutional Narrative: Older, overweight, white male, lying in bed intubated and sedated, dialysis liz se at bedside and patient currently is getting dialyzed HEENT head/scalp atraumatic and moist oral mucous membranes HEENT Narrative: ET tube and OG in place Head and Scalp: normocephalic Eyes PERRL and conjunctivae normal Neck Neck Narrative: Right dialysis catheter in place Resp normal respiratory effort and no retractions Resp Narrative: Diminished at bases bilaterally, breath sounds are coarse diffusely Auscultation: Negative for rales, rhonchi or wheezes Cardio regular rate, regular rhythm, S1 normal heart sound, S2 normal heart sound, no murmurs, no rub, no gallops and no clicks GI normal to inspection, nondistended, normoactive bowel sounds, soft to palpation and non-tender Extremity no clubbing, cyanosis or edema Extremity Narrative: Right upper extremity PICC in place-dressing is clean dry and intact Skin Skin Narrative: No rashes or abnormal lesions noted Neuro Neuro Narrative: Intubated and sedated Psych Psych Narrative: Unable to assess as patient is intubated and sedated Assessment & Plan Assessment/Plan (1) TRENA (acute kidney injury): (2) Chronic kidney disease, stage 3b: (3) Pneumonia: QUALIFIERS: Pneumonia type: due to unspecified organism (4) Acute hypoxic respiratory failure: PLAN: Plan Acute hypoxic respiratory failure-multifactorial(NSTEMI/pneumonia/pulmonary embolism/volume overload) -Intubated 08/11/2023 for worsening respiratory status--> day 5 -Currently on mechanical ventilation with an FiO2 of 40% and PEEP of 10 -Sputum culture from 08/12/2023 shows Stenotrophomonas maltophilia -Continue Levaquin-renally dosed-will need a total of 7 days of antibiotics and should be close to completed per discussion with pulmonary/critical care medicine -Volume removal as able per nephrology with dialysis -Continue heparin drip for PE -Continue Mucinex -As needed albuterol -Continue steroids and wean per pulmonary critical care medicine -Propofol for sedation/fentanyl for sedation--> sedation vacations and weaning trials as able -Tube feeds are running and patient appears to be tolerating but only at 10 cc/h but plan is to increase to goal rate today -[facility]/pulmonary medicine following-appreciate input Acute NSTEMI -Cardiac catheterization done on 08/08/2023 showed a normal left main, first diagonal with 90% long proximal stenosis, LAD with mild disease, nondominant left circumflex with first obtuse marginal branch noting 70% stenosis and a totally occluded RCA with [id number] collaterals -Medical therapy recommended -Continue metoprolol 12.5 mg p.o. daily with hold parameters -Continue statin 40 mg nightly -Continue baby aspirin 81 mg daily -Cardiology is following-appreciate input -Will need outpatient follow-up after discharge Acute HFpEF secondary to NSTEMI -Appears to be stabilizing -Off diuretics -Continue dialysis as needed TRENA on CKD stage IIIb -Continue dialysis per nephrology -Serologies are all unremarkable except C4 was slightly elevated at 46 -Current working diagnosis is TRENA secondary to ATN -Avoid nephrotoxins as able -Renally dose medications -Nephrology is following at limiting-appreciate input Pulmonary embolus/right lower extremity DVT -Continue heparin drip and transition to Eliquis when appropriate Pleural effusion-transudative -Status post right thoracentesis for 1200 cc removal -Monitor clinically and with intermittent imaging for recurrent Stenotrophomonas pneumonia -Levaquin day 1 of 7 Leukocytosis -Appears to be stable -First day for antibiotics is today -Will continue to trend with antibiotics being given Acute on chronic anemia -Baseline hemoglobin appears to run between 10 and 12 -Currently 9.6 -Monitor closely as patient is documented as negative for the hospitalization at 2.1 L -No signs of active bleeding and hemoglobin relatively stable over the last 24 hours Hypertension -Patient on chlorthalidone and amlodipine at baseline -These medications are on hold -Continue metoprolol with hold parameters due to coronary disease -Continue to monitor blood pressure Invasive urothelial carcinoma -Status post transurethral resection of large bladder tumor and robotic assisted laparoscopic nephroureterectomy with bladder closure -done by Dr. Watts in February 2023 -Currently has solitary kidney -Ongoing outpatient follow-up -Acute cystitis ruled out DVT/GI prophylaxis -Heparin drip -IV PPI CODE STATUS -DNR CCA with short-term intubation Charges/Coding Visit Charges Inpatient E&M: 46704 Subs Hosp L2
--- NOTE | 2023-08-15 07:39 | PN.CARD_ITS ---
Subjective Subjective Patient seen and evaluated. Was not extubated. Objective Data Vital Signs: Vital Signs Temp Pulse Resp BP Pulse Ox O2 Del Method O2 Flow Rate 98.0 F 79 16 109/71 92 Mechanical Ventilator 60 08/15/23 04:00 08/15/23 07:00 08/15/23 07:00 08/15/23 07:00 08/15/23 07:00 08/15/23 07:00 08/15/23 07:00 FiO2 40 08/15/23 07:00 Oxygen Flow Rate (L/min) 60 Oxygen Delivery Method Mechanical Ventilator Weight: 184 lb 11.958 oz Body Mass Index (BMI) 29.8 Intake & Output: Intake and Output for Last 24 Hours 08/13/23 08/14/23 08/15/23 23:59 23:59 23:59 Intake Total 1271.96 / 1431.76 1186.97 / 1347.07 358.25 / 358.25 Output Total 835 / 1035 575 / 900 525 / 525 Balance 436.96 / 396.76 611.97 / 447.07 -166.75 / -166.75 Lab / Micro Data 08/15/23 04:50 08/15/23 04:50 Labs: Laboratory Results - last 24 hr 08/15/23 04:50: WBC 14.2 H, RBC 3.76 L, Hgb 9.6 L, Hct 31.5 L, MCV 83.8, MCH 25.5 L, MCHC 30.5 L, RDW Std Deviation 49.1 H, RDW Coeff of Raghavendra 16.4 H, Plt Count 357, MPV 12.2 H, Immature Gran % (Auto) 2.600 H, Neut % (Auto) 88.8 H, Lymph % (Auto) 3.8 L, [place] % (Auto) 4.7, Eos % (Auto) 0.0, Baso % (Auto) 0.1, Absolute Neuts (auto) 12.6 H, Absolute Lymphs (auto) 0.54 L, Nucleated RBC % 0.7, APTT 72.0 H, Sodium 136, Potassium 4.3, Chloride 98, Carbon Dioxide 26.0, Anion Gap 12, BUN 126 H*, Creatinine 4.17 H, Estim Creat Clear Calc 16.50, Est GFR (MDRD) Af Amer 18 L, Est GFR (MDRD) Non-Af 15 L, BUN/Creatinine Ratio 30.2 H , Glucose 274 H, Calcium 9.0 Micro: Microbiology 08/11/23 15:14 Fluid - Pleural (Lung) Gram Stain - Final 08/11/23 15:14 Fluid - Pleural (Lung) Body Fluid Culture - Final Culture exhibits no growth. 08/11/23 15:14 Fluid - Pleural (Lung) Anaerobic Culture - Preliminary No growth in 48 hours. 08/12/23 12:29 Wash - Bronchial Gram Stain - Final 08/12/23 12:29 Wash - Bronchial Respiratory Culture - Final Stenotrophomonas maltophilia 08/11/23 09:59 Sputum, Induced/Lukens Gram Stain - Final 08/11/23 09:59 Sputum, Induced/Lukens Respiratory Culture - Final Stenotrophomonas maltophilia Cardiology Labs/Tests 08/15/23 04:50: WBC 14.2 H, RBC 3.76 L, Hgb 9.6 L, Hct 31.5 L, MCV 83.8, MCH 25.5 L, MCHC 30.5 L, Plt Count 357, MPV 12.2 H, Immature Gran % (Auto) 2.600 H, Neut % (Auto) 88.8 H, Lymph % (Auto) 3.8 L, [place] % (Auto) 4.7, Eos % (Auto) 0.0, Baso % (Auto) 0.1, Absolute Neuts (auto) 12.6 H, Nucleated RBC % 0.7, APTT 72.0 H, Sodium 136, Potassium 4.3, Chloride 98, Carbon Dioxide 26.0, Anion Gap 12, BUN 126 H*, Creatinine 4.17 H, Est GFR (MDRD) Af Amer 18 L, Est GFR (MDRD) Non- Af 15 L, BUN/Creatinine Ratio 30.2 H, Glucose 274 H, Calcium 9.0 Rhythm: EKG: ECHO: Stress Test: Cardiac Cath: PCI: CT Surgery: Holter monitor: EPS: PPM: CXR: Chest CT Scan:
[2023-08-15] MEDS: Propofol 10MG/Ml 1,000 MG/100 ML Bottle 10.1 MG CONT INF ×2 (07:47→16:12)
[2023-08-15] MEDS: Chlorhexidine 15 ML PO ×2 (07:48→20:51)
[2023-08-15] MEDS: CHLORHEXIDINE GLUC 2% CLOTH 1 EACH TOWELETTE TOPICAL (07:48)
[2023-08-15] MEDS: Aspirin 81 MG TAB.CHEW GT (07:57)
[2023-08-15 10:07] LABS: ANTINUCLEAR ANTIBODIES DIRECT Negative (Negative)
[2023-08-15 10:13] LABS: Pathologist Comment/Body Fluid Reviewed
[2023-08-15 10:14] LABS: Pathologist Comment/Body Fluid Reviewed
[2023-08-15 10:19] LABS: Body Fluid QC Type(s) BF1
[2023-08-15 10:19] LABS: Auto B Fluid Analyzer BKGD Ct COUNTS W/IN LIMITS (W/IN LIMITS)
[2023-08-15] MEDS: Heparin 10,000 UNITS/10 ML Vial IV (11:36)
[2023-08-15] MEDS: 0.9% Normal Saline 1,000 ML IV.SOLN. 1000 ML OPERA.SITE (11:37)
[2023-08-15] MEDS: PureFlow B 3K Dialysis Soln 1 BAG 6 BAG PF (11:37)
[2023-08-15] MEDS: Pantoprazole Sodium 40 MG in 0.9% Normal Saline (100mL MB+) 100 ML 330 MG IV (12:38)
[2023-08-15] MEDS: levoFLOXacin IV 500 MG/100 ML BAG 100 MG IV (13:43)
[2023-08-15 14:08] LABS: Cytoplasmic Ab (C-ANCA) <1:20 titer (Neg:<1:20); Perinuclear Ab (P-ANCA) <1:20 titer (Neg:<1:20)
--- NOTE | 2023-08-15 16:13 | PCM.PN.REN ---
Subjective Subjective intubated Objective Data Objective Data Vital Signs: Vital Signs Temp Pulse Resp BP Pulse Ox O2 Del Method O2 Flow Rate 96.6 F L 76 16 98/69 94 Mechanical Ventilator 60 08/15/23 12:15 08/15/23 14:52 08/15/23 14:52 08/15/23 13:00 08/15/23 14:52 08/15/23 13:00 08/15/23 07:00 FiO2 65 08/15/23 14:52 Oxygen Flow Rate (L/min) 60 Oxygen Delivery Method Mechanical Ventilator Weight: 83.9 kg Body Mass Index (BMI) 29.7 Intake & Output: Intake and Output for Last 24 Hours 08/13/23 08/14/23 08/15/23 23:59 23:59 23:59 Intake Total 1271.96 / 1431.76 1186.97 / 1347.07 971.28 / 971.28 Output Total 835 / 1035 575 / 900 1615 / 1615 Balance 436.96 / 396.76 611.97 / 447.07 -643.72 / -643.72 Lab / Micro Data 08/15/23 04:50 08/15/23 04:50 Labs: Laboratory Results - last 24 hr 08/11/23 15:14: Fl Pathologist Comment Reviewed 08/11/23 16:45: ITA Screen Negative, c-ANCA Antibody <1:20, Atypical p-ANCA <1:20, p-ANCA Antibody <1:20 08/12/23 12:29: Fl Pathologist Comment Reviewed 08/15/23 04:50: WBC 14.2 H, RBC 3.76 L, Hgb 9.6 L, Hct 31.5 L, MCV 83.8, MCH 25.5 L, MCHC 30.5 L, RDW Std Deviation 49.1 H, RDW Coeff of Raghavendra 16.4 H, Plt Count 357, MPV 12.2 H, Immature Gran % (Auto) 2.600 H, Neut % (Auto) 88.8 H, Lymph % (Auto) 3.8 L, [place] % (Auto) 4.7, Eos % (Auto) 0.0, Baso % (Auto) 0.1, Absolute Neuts (auto) 12.6 H, Absolute Lymphs (auto) 0.54 L, Nucleated RBC % 0.7, APTT 72.0 H, Sodium 136, Potassium 4.3, Chloride 98, Carbon Dioxide 26.0, Anion Gap 12, BUN 126 H*, Creatinine 4.17 H, Estim Creat Clear Calc 16.50, Est GFR (MDRD) Af Amer 18 L, Est GFR (MDRD) Non-Af 15 L, BUN/Creatinine Ratio 30.2 H, Glucose 274 H, Calcium 9.0 Micro: Microbiology 08/11/23 15:14 Fluid - Pleural (Lung) Gram Stain - Final 08/11/23 15:14 Fluid - Pleural (Lung) Body Fluid Culture - Final Culture exhibits no growth. 08/11/23 15:14 Fluid - Pleural (Lung) Anaerobic Culture - Preliminary No growth in 48 hours. 08/12/23 12:29 Wash - Bronchial Gram Stain - Final 08/12/23 12:29 Wash - Bronchial Respiratory Culture - Final Stenotrophomonas maltophilia 08/11/23 09:59 Sputum, Induced/Lukens Gram Stain - Final 08/11/23 09:59 Sputum, Induced/Lukens Respiratory Culture - Final Stenotrophomonas maltophilia 08/12/23 10:49 Nasal Secretion SARS-CoV-2 Antigen (Rapid) - Final 08/04/23 00:00 Sputum, Expectorated/Coughed Gram Stain - Final 08/04/23 00:00 Sputum, Expectorated/Coughed Respiratory Culture - Final 08/03/23 21:57 Urine, Random Legionella Antigen - Final 08/03/23 21:57 Urine, Random Streptococcus pneumoniae Antigen (M - Final 08/03/23 18:30 Mucosa - Nose SARS-CoV-2, Influenza & RSV (PCR) - Final Physical Exam Narrative on vent support no obvious distress s1s2 no murmurs lungs clear anteriorly abdomen soft no edema indwelling de leon Const alert and oriented x3 General Appearance: well developed Orientation / Consciousness: oriented to person, oriented to place and oriented to time HEENT normocephalic Neck no lymphadenopathy Resp Auscultation: crackles right and left GI non-tender Auscultation: normoactive bowel sounds Neuro Sensorium / Orientation: awake and alert Psych cooperative Assessment & Plan Assessment/Plan (1) TRENA (acute kidney injury): PLAN: 72-year-old male with past medical history significant for 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 Terry (after surgery, his baseline creatinine has been around 2.0), presented to the emergency room on 08/02 with complaints of shortness of breath with exertion, admitted for non-STEMI, suspected pneumonia. - TRENA superimposed on CKD; baseline creatinine around 2.0. Acute renal failure was felt to be related to cardiorenal syndrome however also concern for vasculitis therefore sent off serologies. Serology results: p-ANCA, c-ANCA, double-stranded DNA, glomerular basement membrane antibody, C3 all normal. C4 complement slightly elevated at 46. possibly TRENA from ischemic ATN. SCr 2 on admission and for few days SCr ranging around 2.4-2.6mg/dL even while on lasix gtt. 08/09 SCr 3.02 and lasix gtt stopped. Started on dialysis 08/12/2023. HD today. not tolerating fluid removal - Acute hypoxemic respiratory failure with unclear etiology--> sputum culture growing stenotropomonas CT angiogram: No big thrombus seen, small pulmonary emboli, bilateral pleural effusions right greater than left with diffuse bilateral pulmonary infiltrates involving upper and lower lobes. - NSTEMI, acute decompensated heart failure with preserved EF; cardiac cath 08/07 (2) Chronic kidney disease, stage 3b:
[2023-08-15] MEDS: Vital AF 1.2 Cal Liquid 1,000 ML 25 ML GT (16:22)
[2023-08-15] MEDS: guaiFENesin 600 MG Tablet PO (20:54)
[2023-08-15] MEDS: Atorvastatin Calcium 40 MG Tablet GT (20:55)
[2023-08-16] VITALS (32 sets, daily range): BP systolic 100–129; BP diastolic 67–88; PULSE 76–104; RESP 14–89; TEMP 36.1–36.8; O2SAT 90–97; BMI 29.1
[2023-08-16] MEDS: fentaNYL drip 100 ML 10 MCG CONT INF ×3 (00:01→20:37)
[2023-08-16] MEDS: Propofol 10MG/Ml 1,000 MG/100 ML Bottle 10.1 MG CONT INF ×3 (00:02→17:14)
[2023-08-16 03:47] LABS: Absolute Lymphocyte Count 0.53 X10^3/uL (0.83-4.51); Absolute Neutrophil Count 12.8 X10^3/uL (2.0-7.7); Basophil# 0.03 X10^3/uL; Basophil% 0.2 % (0-1); Hematocrit 31.8 % (40-54); Hemoglobin 9.6 g/dL (13.0-16.5); Lymphocyte # 0.53 X10^3/ul (0.83-4.51); Lymphocyte % 3.7 % (19-41); Mean Corp Hgb Conc 30.2 g/dL (32-36); Mean Corpuscular Hgb 25.5 pg (27.0-32.0); Mean Corpuscular Volume 84.6 fL (80-94); Mean Platelet Vol. 12.6 fl (6.2-12.0); Monocyte# 0.62 X10^3/uL; Monocyte% 4.3 % (0-10); NRBC Flagged by Analyzer 0.5 % (0-5); Neutrophil # 12.84 X10^3/uL (2.7-7.7); Neutrophil % 89.7 % (47-70); POSITIVE DIFFERENTIAL YES; Platelet Count 353 K/mm3 (150-450); RBC Distribution Width SD 49.2 fl (35.1-43.9); Red Blood Count 3.76 M/mm3 (4.6-6.2); White Blood Count 14.3 K/mm3 (4.4-11.0)
[2023-08-16 04:03] LABS: ALB/GLOB Ratio 0.7 RATIO (0.9-2.4); AST(SGOT) 25 U/L (15-37); Alanine Aminotransfer ALT/SGPT 37 U/L (16-61); Albumin, Serum 2.3 g/dL (3.2-5.0); Alkaline Phosphatase 57 U/L (45-117); Anion Gap 11 (5-15); BUN 88 mg/dL (7-18); BUN/Creat Ratio 27.5 RATIO (10-20); Calcium,Total 8.5 mg/dL (8.5-10.1); Chloride 100 mmol/L (98-107); EST Glomerular Filtration Rate 20 mL/min (>60); Est Glom Filt Rate - Afr Amer 25 mL/min (>60); Estimated Creatinine Clearance 21.51 ml/min; Globulin 3.3 g/dL (2.2-4.2); Glucose 283 mg/dL (74-106); Phosphorus 6.1 mg/dL (2.5-4.9); Potassium 4.5 mmol/L (3.5-5.1); Protein, Total 5.6 g/dL (6.4-8.2); Sodium Level 135 mmol/L (136-145)
[2023-08-16 04:21] LABS: Partial Thromboplast Time 79.4 Seconds (24.1-36.2)
[2023-08-16] MEDS: HEPARIN/D5w 25,000 UNITS 25,000 UNITS/250 ML IV.SOLN. 9 UNITS CONT INF (05:58)
[2023-08-16] MEDS: Menthol/Lanolin/Calamine/Znox 113 GM Tube 1 APPLIC TOPICAL ×3 (06:19→21:10)
--- NOTE | 2023-08-16 06:26 | RAD_ITS ---
STUDY: X-RAY CHEST REASON FOR EXAM: Male, 72 years old. Respiratory failure TECHNIQUE: Frontal view of the chest COMPARISON: 08/14/2023 FINDINGS: The support lines and tubes are unchanged. There is no pneumothorax. There are stable bilateral patchy airspace opacities. There is no significant pleural effusion. The heart is stable in size. The visualized osseous structures are within normal limits. RAD/Chest 1 View (Portable) IMPRESSION: Stable exam. Electronically Signed: Mehdi Ernandez MD at 8:26 EDT ,
--- NOTE | 2023-08-16 07:12 | PCM.PN.INT ---
Assessment & Plan Assessment/Plan (1) Acute hypoxic respiratory failure: (2) Pleural effusion, right: (3) TRENA (acute kidney injury): PLAN: Plan RECOMMENDATIONS: 1. Continue assist-control mode mechanical ventilation. Wean FiO2 and PEEP for saturations greater than 90%. 2. Continue antimicrobials. 3. Continue weight-based heparin infusion. 4. Continue corticosteroids. Wean as tolerated. 5. Continue tube feeding as tolerated. 6. Continue appropriate GI prophylaxis. IMPRESSIONS: 1. Acute hypoxemic respiratory failure Unclear etiology. Initially, the patient's respiratory decompensation was felt to be a consequence of decompensated heart failure with preserved ejection fraction in the setting of an NSTEMI. However, underlying infection related to stenotrophomonas seems more likely. Subsequent attempts at volume optimization led to no significant improvement in his respiratory status. Other potential etiologies include pulmonary embolism along with inflammatory pneumonia. As such, the patient has been maintained on antimicrobials and pulse dose steroids. Upon intubation, the patient was noted to have a significant amount of bleeding from his endotracheal tube, raising the suspicion for diffuse alveolar hemorrhage. Nevertheless, subsequent bronchoscopy was not consistent with DAH. The patient underwent thoracentesis as well from the right hemithorax which appeared to be transudative in nature. Cardiac catheterization has already been completed, for which medical therapy was recommended. For now, we will plan to continue current supportive measures and attempt to wean FiO2 and PEEP to maintain saturations at or above 90%. 2. NSTEMI/acute decompensated heart failure with preserved ejection fraction Management per cardiology. 3. Acute on chronic kidney disease Nephrology is following. The patient's worsening renal insufficiency is likely multifactorial and related to prerenal etiology coupled with possible contrast nephropathy from recent catheterization and CTA chest. Continue ongoing dialysis support per nephrology recommendations. TIME: 31 minutes, independent of procedures, was spent addressing the patient's acute hypoxemic respiratory failure, NSTEMI, acute decompensated heart failure with preserved ejection fraction, stenotrophomonas pneumonia, acute on chronic kidney disease, review of all data and collaboration with care team. Subjective Subjective The patient was seen and examined at the bedside this morning. Events from the last 24 hours have been reviewed. The patient is currently afebrile, hemodynamically stable and maintaining appropriate oxygen saturations on assist-control mode mechanical ventilation with an FiO2 requirement of 70% and PEEP of 5. The patient is currently documented to be overall net -1.5 L for the hospitalization. White count and hemoglobin remain unchanged. Objective Data Objective Data The patient's most recent lab work, culture data and imaging studies have all been personally reviewed. Surface echocardiogram demonstrated normal LV size and function with an ejection fraction of 55%. Doppler study was positive for right-sided DVT. Sputum culture was positive for stenotrophomonas. Vital Signs: Vital Signs Temp Pulse Resp BP Pulse Ox O2 Del Method O2 Flow Rate 97.6 F L 87 17 105/69 92 Mechanical Ventilator 60 08/16/23 04:00 08/16/23 06:00 08/16/23 06:00 08/16/23 06:00 08/16/23 06:00 08/16/23 06:00 08/15/23 07:00 FiO2 72 08/16/23 06:00 Oxygen Flow Rate (L/min) 60 Oxygen Delivery Method Mechanical Ventilator Weight: 181 lb 3.52 oz Body Mass Index (BMI) 29.1 Intake & Output: Intake and Output for Last 24 Hours 08/14/23 08/15/23 08/16/23 23:59 23:59 23:59 Intake Total 1186.97 / 1347.07 1460.61 / 1690.61 957.81 / 957.81 Output Total 575 / 900 1740 / 1740 250 / 250 Balance 611.97 / 447.07 -279.39 / -49.39 707.81 / 707.81 Lab / Micro Data Attestation: I reviewed the patient's lab results. 08/16/23 03:30 08/16/23 03:30 Labs: Laboratory Results - last 24 hr 08/11/23 15:14: Fl Pathologist Comment Reviewed 08/11/23 16:45: ITA Screen Negative, c-ANCA Antibody <1:20, Atypical p-ANCA <1:20, p-ANCA Antibody <1:20, GALINA-1 Antibody Not Reportable, SS-A/Ro IgG Antibody Not Reportable, SS-B/La IgG Antibody Not Reportable, Sm (Kelley) Antibody Not Reportable, COAL WEIGHER Antibody Not Reportable, Scl-70 Scleroderma Ab Not Reportable, Double Strand DNA Ab Not Reportable, Centromere B Antibody Not Reportable 08/12/23 12:29: Fl Pathologist Comment Reviewed 08/16/23 03:30: WBC 14.3 H, RBC 3.76 L, Hgb 9.6 L, Hct 31.8 L, MCV 84.6, MCH 25.5 L, MCHC 30.2 L, RDW Std Deviation 49.2 H, RDW Coeff of Raghavendra 17.0 H, Plt Count 353, MPV 12.6 H, Immature Gran % (Auto) 2.100 H, Neut % (Auto) 89.7 H, Lymph % (Auto) 3.7 L, [place] % (Auto) 4.3, Eos % (Auto) 0.0, Baso % (Auto) 0.2, Absolute Neuts (auto) 12.8 H, Absolute Lymphs (auto) 0.53 L, Nucleated RBC % 0.5, APTT 79.4 H, Sodium 135 L, Potassium 4.5, Chloride 100, Carbon Dioxide 24.0, Anion Gap 11, BUN 88 H, Creatinine 3.20 H, Estim Creat Clear Calc 21.51, Est GFR (MDRD) Af Amer 25 L, Est GFR (MDRD) Non-Af 20 L, BUN/Creatinine Ratio 27.5 H, Glucose 283 H, Calcium 8.5, Phosphorus 6.1 H, Magnesium 3.0 H, Total Bilirubin 0.30, AST 25, ALT 37, Alkaline Phosphatase 57, Total Protein 5.6 L, Albumin 2.3 L, Globulin 3.3, Albumin/Globulin Ratio 0.7 L Micro: Microbiology 08/11/23 15:14 Fluid - Pleural (Lung) Gram Stain - Final 08/11/23 15:14 Fluid - Pleural (Lung) Body Fluid Culture - Final Culture exhibits no growth. 08/11/23 15:14 Fluid - Pleural (Lung) Anaerobic Culture - Preliminary No growth in 48 hours. 08/12/23 12:29 Wash - Bronchial Gram Stain - Final 08/12/23 12:29 Wash - Bronchial Respiratory Culture - Final Stenotrophomonas maltophilia 08/11/23 09:59 Sputum, Induced/Lukens Gram Stain - Final 08/11/23 09:59 Sputum, Induced/Lukens Respiratory Culture - Final Stenotrophomonas maltophilia 08/12/23 10:49 Nasal Secretion SARS-CoV-2 Antigen (Rapid) - Final 08/04/23 00:00 Sputum, Expectorated/Coughed Gram Stain - Final 08/04/23 00:00 Sputum, Expectorated/Coughed Respiratory Culture - Final 08/03/23 21:57 Urine, Random Legionella Antigen - Final 08/03/23 21:57 Urine, Random Streptococcus pneumoniae Antigen (M - Final 08/03/23 18:30 Mucosa - Nose SARS-CoV-2, Influenza & RSV (PCR) - Final ABG Data ABG results: ABG 08/11/23 10:13 Specimen Type ART Sample Site L Radial pH 7.47 H Bicarbonate Actual 36.1 H Total CO2 38 Base Excess 13 H O2 Saturation 99 O2 % 50.0 ABG pCO2 49.8 H ABG pO2 132 H Abhijit Test Positive Respiration Rate 14 O2 Delivery Device Adult Vent Vent Mode AC Tidal Volume 500.0 POC PEEP 10 Radiography Diagnostic Testing: Radiology Impression Chest X-Ray 08/11/23 08:50 IMPRESSION: Progressive bilateral airspace disease with a small right pleural effusion. The tip of the endotracheal tube is at 6.8 cm proximal to the zack. The tip of the orogastric tube is heading towards the gastroesophageal junction. Electronically Signed: Jack Garcia MD at 10:11 EDT , Chest X-Ray 08/11/23 14:30 IMPRESSION: Status post right thoracentesis. No evidence of pneumothorax. Electronically Signed: Jack Garcia MD at 15:09 EDT , KUB X-Ray 08/11/23 20:53 IMPRESSION: Orogastric tube noted with tip in the proximal to mid gastric fundus. Electronically Signed: David Dalton MD at 22:02 EDT , Physical Exam Const Constitutional Narrative: Intubated, sedated and mechanically ventilated. No ventilator dyssynchrony noted. HEENT normocephalic and head/scalp atraumatic Mouth: endotracheal tube in place and OG tube in place Eyes PERRL, EOMs intact bilaterally and conjunctivae normal Neck supple General: trachea midline Chest inspection of chest normal Resp Resp Narrative: Coarse mechanical breath sounds Auscultation: diminished lung sounds; Negative for rales, rhonchi or wheezes Cardio regular rate, regular rhythm, S1 normal heart sound and S2 normal heart sound GI normal to inspection, nondistended, normoactive bowel sounds Extremity no clubbing, cyanosis or edema Skin no rashes or lesions noted Neuro Sensorium / Orientation: sedated on vent Charges/Coding Procedures Hospitalists Procedures: 79252 Critical Care 1st Hr
--- NOTE | 2023-08-16 08:29 | PN.HOSP_ITS ---
Reason for Visit Reason for Visit: Exertional dyspnea Subjective Subjective PEEP was weaned from 10-5 yesterday and patient's oxygen requirements have increased from 40% yesterday to 70% through the night with weaning of PEEP. Not been able to remove much fluid with dialysis due to soft blood pressures. Chest x-ray consistently looks volume overloaded consistent with ARDS. No other significant issues through the night. Objective Data Objective Data Vital Signs: Vital Signs Temp Pulse Resp BP Pulse Ox O2 Del Method O2 Flow Rate 97.9 F 82 16 107/73 97 Mechanical Ventilator 60 08/16/23 08:00 08/16/23 08:00 08/16/23 08:00 08/16/23 08:00 08/16/23 08:00 08/16/23 08:00 08/15/23 07:00 FiO2 70 08/16/23 08:00 Oxygen Flow Rate (L/min) 60 Oxygen Delivery Method Mechanical Ventilator Weight: 82.2 kg Body Mass Index (BMI) 29.1 Intake & Output: Intake and Output for Last 24 Hours 08/14/23 08/15/23 08/16/23 23:59 23:59 23:59 Intake Total 1186.97 / 1347.07 1460.61 / 1690.61 957.81 / 957.81 Output Total 575 / 900 1740 / 1740 250 / 250 Balance 611.97 / 447.07 -279.39 / -49.39 707.81 / 707.81 Lab / Micro Data 08/16/23 03:30 08/16/23 03:30 Labs: Laboratory Results - last 24 hr 08/11/23 15:14: Fl Pathologist Comment Reviewed 08/11/23 16:45: ITA Screen Negative, c-ANCA Antibody <1:20, Atypical p-ANCA <1:20, p-ANCA Antibody <1:20, GALINA-1 Antibody Not Reportable, SS-A/Ro IgG Antibody Not Reportable, SS-B/La IgG Antibody Not Reportable, Sm (Kelley) Antibody Not Reportable, YARN WEIGHER Antibody Not Reportable, Scl-70 Scleroderma Ab Not Reportable, Double Strand DNA Ab Not Reportable, Centromere B Antibody Not Reportable 08/12/23 12:29: Fl Pathologist Comment Reviewed 08/16/23 03:30: WBC 14.3 H, RBC 3.76 L, Hgb 9.6 L, Hct 31.8 L, MCV 84.6, MCH 25.5 L, MCHC 30.2 L, RDW Std Deviation 49.2 H, RDW Coeff of Raghavendra 17.0 H, Plt Count 353, MPV 12.6 H, Immature Gran % (Auto) 2.100 H, Neut % (Auto) 89.7 H, Lymph % (Auto) 3.7 L, [place] % (Auto) 4.3, Eos % (Auto) 0.0, Baso % (Auto) 0.2, Absolute Neuts (auto) 12.8 H, Absolute Lymphs (auto) 0.53 L, Nucleated RBC % 0. 5, APTT 79.4 H, Sodium 135 L, Potassium 4.5, Chloride 100, Carbon Dioxide 24.0, Anion Gap 11, BUN 88 H, Creatinine 3.20 H, Estim Creat Clear Calc 21.51, Est GFR (MDRD) Af Amer 25 L, Est GFR (MDRD) Non-Af 20 L, BUN/Creatinine Ratio 27.5 H, Glucose 283 H, Calcium 8.5, Phosphorus 6.1 H, Magnesium 3.0 H, Total Bilirubin 0.30, AST 25, ALT 37, Alkaline Phosphatase 57, Total Protein 5.6 L, Albumin 2.3 L, Globulin 3.3, Albumin/Globulin Ratio 0.7 L Micro: Microbiology 08/11/23 15:14 Fluid - Pleural (Lung) Gram Stain - Final 08/11/23 15:14 Fluid - Pleural (Lung) Body Fluid Culture - Final Culture exhibits no growth. 08/11/23 15:14 Fluid - Pleural (Lung) Anaerobic Culture - Final No growth in 5 days. 08/12/23 12:29 Wash - Bronchial Gram Stain - Final 08/12/23 12:29 Wash - Bronchial Respiratory Culture - Final Stenotrophomonas maltophilia 08/11/23 09:59 Sputum, Induced/Lukens Gram Stain - Final 08/11/23 09:59 Sputum, Induced/Lukens Respiratory Culture - Final Stenotrophomonas maltophilia 08/12/23 10:49 Nasal Secretion SARS-CoV-2 Antigen (Rapid) - Final 08/04/23 00:00 Sputum, Expectorated/Coughed Gram Stain - Final 08/04/23 00:00 Sputum, Expectorated/Coughed Respiratory Culture - Final 08/03/23 21:57 Urine, Random Legionella Antigen - Final 08/03/23 21:57 Urine, Random Streptococcus pneumoniae Antigen (M - Final 08/03/23 18:30 Mucosa - Nose SARS-CoV-2, Influenza & RSV (PCR) - Final Radiography Diagnostic Testing: Radiology Impression Chest X-Ray 08/16/23 06:26 IMPRESSION: Stable exam. Electronically Signed: Mehdi Ernandez MD at 8:26 EDT , Physical Exam Const no apparent distress Constitutional Narrative: Older, overweight, white male, lying in bed intubated and sedated HEENT normocephalic, head/scalp atraumatic and moist oral mucous membranes HEENT Narrative: ET tube and OG in place Resp normal respiratory effort, no retractions and no use of accessory muscles Resp Narrative: Diminished at bases bilaterally, breath sounds are coarse diffusely Auscultation: Negative for rales, rhonchi or wheezes Cardio regular rate, regular rhythm, S1 normal heart sound, S2 normal heart sound, no murmurs, no rub, no gallops and no clicks GI normal to inspection, nondistended, normoactive bowel sounds, soft to palpation and non-tender Extremity no clubbing, cyanosis or edema Extremity Narrative: Right upper extremity PICC in place-dressing is clean dry and intact Neuro Neuro Narrative: Intubated and sedated Psych Psych Narrative: Unable to assess as patient is intubated and sedated Assessment & Plan Assessment/Plan (1) TRENA (acute kidney injury): (2) Chronic kidney disease, stage 3b: (3) Pneumonia: QUALIFIERS: Pneumonia type: due to unspecified organism (4) Acute hypoxic respiratory failure: PLAN: Plan Acute hypoxic respiratory failure-multifactorial(NSTEMI/pneumonia/pulmonary embolism/volume overload) -Intubated 08/11/2023 for worsening respiratory status--> day 5 -Remains on mechanical ventilation with an FiO2 now up to 70% and PEEP of 5 -Increase PEEP back up to 8 to see if we could wean FiO2 further -Chest x-ray appears to be consistent with ARDS -Sputum culture from 08/12/2023 shows Stenotrophomonas maltophilia -Continue Levaquin-renally dosed -Volume removal as able per nephrology with dialysis -We have asked for some more fluid removal if possible -Continue heparin drip for PE -Continue Mucinex -As needed albuterol -Continue steroids and wean per pulmonary critical care medicine -Propofol for sedation/fentanyl for sedation--> sedation vacations and weaning trials as able -Tube feeds are now running at [facility] -[facility]/pulmonary medicine following-appreciate input Acute NSTEMI -Cardiac catheterization done on 08/08/2023 showed a normal left main, first diagonal with 90% long proximal stenosis, LAD with mild disease, nondominant left circumflex with first obtuse marginal branch noting 70% stenosis and a totally occluded RCA with [id number] collaterals -Medical therapy recommended -Continue metoprolol 12.5 mg p.o. daily with hold parameters -Continue statin 40 mg nightly -Continue baby aspirin 81 mg daily -Cardiology is following-appreciate input -Will need outpatient follow-up after discharge Mild hyponatremia -Sodium has fluctuated but is 135 today -likely related to volume status -Continue to monitor with dialysis Acute HFpEF secondary to NSTEMI -Continue dialysis as needed for fluid management TRENA on CKD stage IIIb -Continue dialysis per nephrology -Serologies are all unremarkable except C4 was slightly elevated at 46 -Current working diagnosis is TRENA secondary to ATN -Avoid nephrotoxins as able -Renally dose medications -Nephrology is following at limiting-appreciate input Pulmonary embolus/right lower extremity DVT -Continue heparin drip and transition to Eliquis when appropriate Pleural effusion-transudative -Status post right thoracentesis for 1200 cc removal -Monitor clinically and with intermittent imaging for recurrent Stenotrophomonas pneumonia -Continue IV Levaquin to complete a total of 7-day course Leukocytosis -Appears to be stable but slightly elevated in the mid 14 range Acute on chronic anemia -Baseline hemoglobin appears to run between 10 and 12 -Currently remained stable at 9.6 -Monitor closely as patient is documented as negative for the hospitalization at 2.1 L -No signs of active bleeding and hemoglobin relatively stable over the last 24 hours Hypertension -Patient on chlorthalidone and amlodipine at baseline -These medications are on hold -Continue metoprolol with hold parameters due to coronary disease -Continue to monitor blood pressure Invasive urothelial carcinoma -Status post transurethral resection of large bladder tumor and robotic assisted laparoscopic nephroureterectomy with bladder closure -done by Dr. Watts in February 2023 -Currently has solitary kidney -Ongoing outpatient follow-up -Acute cystitis ruled out DVT/GI prophylaxis -Heparin drip -IV PPI CODE STATUS -DNR CCA with short-term intubation Charges/Coding Visit Charges Inpatient E&M: 72711 Subs Hosp L2
[2023-08-16] MEDS: Aspirin 81 MG TAB.CHEW GT (08:36)
[2023-08-16] MEDS: Chlorhexidine 15 ML PO ×2 (08:36→21:11)
[2023-08-16] MEDS: CHLORHEXIDINE GLUC 2% CLOTH 1 EACH TOWELETTE TOPICAL (08:37)
[2023-08-16] MEDS: Pantoprazole Sodium 40 MG in 0.9% Normal Saline (100mL MB+) 100 ML 330 MG IV (08:44)
[2023-08-16] MEDS: 0.9% Saline Lock 10 ML Syringe IV (08:44)
--- NOTE | 2023-08-16 10:16 | PCM.PN.REN ---
Subjective Subjective Still on 60% FiO2 and PEEP of 8. He is making urine. Creatinine elevated. Unable to remove volume dialysis. Clinically does not appear overloaded. Objective Data Objective Data Vital Signs: Vital Signs Temp Pulse Resp BP Pulse Ox O2 Del Method O2 Flow Rate 98.2 F 76 16 105/70 96 Mechanical Ventilator 60 08/16/23 10:00 08/16/23 10:00 08/16/23 10:00 08/16/23 10:00 08/16/23 10:00 08/16/23 10:00 08/15/23 07:00 FiO2 60 08/16/23 10:00 Oxygen Flow Rate (L/min) 60 Oxygen Delivery Method Mechanical Ventilator Weight: 82.2 kg Body Mass Index (BMI) 29.1 Intake & Output: Intake and Output for Last 24 Hours 08/14/23 08/15/23 08/16/23 23:59 23:59 23:59 Intake Total 1186.97 / 1347.07 1460.61 / 1690.61 1478.64 / 1478.64 Output Total 575 / 900 1740 / 1740 250 / 250 Balance 611.97 / 447.07 -279.39 / -49.39 1228.64 / 1228.64 Lab / Micro Data 08/16/23 03:30 08/16/23 03:30 Labs: Laboratory Results - last 24 hr 08/11/23 16:45: c-ANCA Antibody <1:20, Atypical p-ANCA <1:20, p-ANCA Antibody <1:20, GALINA-1 Antibody Not Reportable, SS-A/Ro IgG Antibody Not Reportable, SS-B/La IgG Antibody Not Reportable, Sm (Kelley) Antibody Not Reportable, SERV[employer] DES[employer]ENT Antibody Not Reportable, Scl-70 Scleroderma Ab Not Reportable, Double Strand DNA Ab Not Reportable, Centromere B Antibody Not Reportable 08/16/23 03:30: WBC 14.3 H, RBC 3.76 L, Hgb 9.6 L, Hct 31.8 L, MCV 84.6, MCH 25.5 L, MCHC 30.2 L, RDW Std Deviation 49.2 H, RDW Coeff of Raghavendra 17.0 H, Plt Count 353, MPV 12.6 H, Immature Gran % (Auto) 2.100 H, Neut % (Auto) 89.7 H, Lymph % (Auto) 3.7 L, [place] % (Auto) 4.3, Eos % (Auto) 0.0, Baso % (Auto) 0.2, Absolute Neuts (auto) 12.8 H, Absolute Lymphs (auto) 0.53 L, Nucleated RBC % 0.5, APTT 79.4 H, Sodium 135 L, Potassium 4.5, Chloride 100, Carbon Dioxide 24.0, Anion Gap 11, BUN 88 H, Creatinine 3.20 H, Estim Creat Clear Calc 21.51, Est GFR (MDRD) Af Amer 25 L, Est GFR (MDRD) Non-Af 20 L, BUN/Creatinine Ratio 27.5 H, Glucose 283 H, Calcium 8.5, Phosphorus 6.1 H, Magnesium 3.0 H, Total Bilirubin 0.30, AST 25, ALT 37, Alkaline Phosphatase 57, Total Protein 5.6 L, Albumin 2.3 L, Globulin 3.3, Albumin/Globulin Ratio 0.7 L Micro: Microbiology 08/11/23 15:14 Fluid - Pleural (Lung) Gram Stain - Final 08/11/23 15:14 Fluid - Pleural (Lung) Body Fluid Culture - Final Culture exhibits no growth. 08/11/23 15:14 Fluid - Pleural (Lung) Anaerobic Culture - Final No growth in 5 days. 08/12/23 12:29 Wash - Bronchial Gram Stain - Final 08/12/23 12:29 Wash - Bronchial Respiratory Culture - Final Stenotrophomonas maltophilia 08/11/23 09:59 Sputum, Induced/Lukens Gram Stain - Final 08/11/23 09:59 Sputum, Induced/Lukens Respiratory Culture - Final Stenotrophomonas maltophilia 08/12/23 10:49 Nasal Secretion SARS-CoV-2 Antigen (Rapid) - Final 08/04/23 00:00 Sputum, Expectorated/Coughed Gram Stain - Final 08/04/23 00:00 Sputum, Expectorated/Coughed Respiratory Culture - Final 08/03/23 21:57 Urine, Random Legionella Antigen - Final 08/03/23 21:57 Urine, Random Streptococcus pneumoniae Antigen (M - Final 08/03/23 18:30 Mucosa - Nose SARS-CoV-2, Influenza & RSV (PCR) - Final Radiography Diagnostic Testing: Radiology Impression Chest X-Ray 08/16/23 06:26 IMPRESSION: Stable exam. Electronically Signed: Mehdi Ernandez MD at 8:26 EDT , Physical Exam Narrative on vent support no obvious distress s1s2 no murmurs lungs clear anteriorly abdomen soft no edema indwelling [place] Const alert and oriented x3 General Appearance: well developed Orientation / Consciousness: oriented to person, oriented to place and oriented to time HEENT normocephalic Neck no lymphadenopathy Resp Auscultation: crackles right and left GI non-tender Auscultation: normoactive bowel sounds Neuro Sensorium / Orientation: awake and alert Psych cooperative Assessment & Plan Assessment/Plan (1) TRENA (acute kidney injury): PLAN: 72-year-old male with past medical history significant for 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 Terry (after surgery, his baseline creatinine has been around 2.0), presented to the emergency room on 08/02 with complaints of shortness of breath with exertion, admitted for non-STEMI, suspected pneumonia. - TRENA superimposed on CKD; baseline creatinine around 2.0. Acute renal failure was felt to be related to cardiorenal syndrome. Serology results: p-ANCA, c-ANCA, double-stranded DNA, glomerular basement membrane antibody, C3 all normal. C4 complement slightly elevated at 46. possibly TRENA from ischemic ATN. SCr 2 on admission and for few days SCr ranging around 2.4-2.6mg/dL even while on lasix gtt. 08/09 SCr 3.02 and lasix gtt stopped. Started on dialysis 08/12/2023. Last dialysis on 08/15/2023. No acute indications today. We will plan for dialysis tomorrow. He is also making some urine. - Acute hypoxemic respiratory failure with unclear etiology--> sputum culture growing stenotropomonas. Found to have diffuse alveolar hemorrhage on bronchoscopy. Small segment PE on CT PE protocol. Hypoxia is likely due to a combination of all these factors. CT angiogram: No big thrombus seen, small pulmonary emboli, bilateral pleural effusions right greater than left with diffuse bilateral pulmonary infiltrates involving upper and lower lobes. S/p pleural tap, transudative. - NSTEMI, acute decompensated heart failure with preserved EF; cardiac cath 08/07. Cardiology following. Might need another intervention eventually. (2) Chronic kidney disease, stage 3b:
[2023-08-16] MEDS: Insulin Lispro 100 UNIT/ML INSULN.PEN SC ×3 (11:21→23:13)
[2023-08-16 11:41] LABS: Bedside Glucose 279 mg/dL (74-106)
[2023-08-16] MEDS: Vital AF 1.2 Cal Liquid 1,000 ML 60 ML GT (15:21)
[2023-08-16 19:33] LABS: Bedside Glucose 307 mg/dL (74-106)
[2023-08-16] MEDS: guaiFENesin 600 MG Tablet PO (21:10)
[2023-08-16] MEDS: Atorvastatin Calcium 40 MG Tablet GT (21:10)
[2023-08-16 21:30] LABS: Bedside Glucose 282 mg/dL (74-106)
[2023-08-17] VITALS (47 sets, daily range): BP systolic 94–186; BP diastolic 60–82; PULSE 78–108; RESP 16–25; TEMP 36.1–36.9; O2SAT 86–98; BMI 30.1; BMI 29.7
[2023-08-17] MEDS: Ondansetron 4 MG/2 ML Vial IV (01:35)
[2023-08-17 03:53] LABS: Absolute Lymphocyte Count 0.83 X10^3/uL (0.83-4.51); Absolute Neutrophil Count 15.9 X10^3/uL (2.0-7.7); Basophil# 0.04 X10^3/uL; Basophil% 0.2 % (0-1); Eosinophil# 0.02 X10^3/uL; Eosinophils% 0.1 % (0-5); Hematocrit 33.5 % (40-54); Hemoglobin 9.9 g/dL (13.0-16.5); Lymphocyte # 0.83 X10^3/ul (0.83-4.51); Lymphocyte % 4.4 % (19-41); Mean Corp Hgb Conc 29.6 g/dL (32-36); Mean Corpuscular Hgb 25.3 pg (27.0-32.0); Mean Corpuscular Volume 85.5 fL (80-94); Mean Platelet Vol. 12.8 fl (6.2-12.0); Monocyte# 1.46 X10^3/uL; Monocyte% 7.7 % (0-10); NRBC Flagged by Analyzer 0.1 % (0-5); Neutrophil # 15.94 X10^3/uL (2.7-7.7); Neutrophil % 84.5 % (47-70); Platelet Count 344 K/mm3 (150-450); RBC Distribution Width CV 17.6 % (11.6-14.6); RBC Distribution Width SD 50.4 fl (35.1-43.9); Red Blood Count 3.92 M/mm3 (4.6-6.2); White Blood Count 18.9 K/mm3 (4.4-11.0)
[2023-08-17] MEDS: Propofol 10MG/Ml 1,000 MG/100 ML Bottle 10.1 MG CONT INF ×3 (03:58→18:32)
[2023-08-17] MEDS: HEPARIN/D5w 25,000 UNITS 25,000 UNITS/250 ML IV.SOLN. 9 UNITS CONT INF (03:59)
[2023-08-17 04:05] LABS: Partial Thromboplast Time 60.3 Seconds (24.1-36.2)
[2023-08-17 04:24] LABS: Anion Gap 11 (5-15); BUN 103 mg/dL (7-18); BUN/Creat Ratio 30.7 RATIO (10-20); Calcium,Total 8.3 mg/dL (8.5-10.1); Chloride 100 mmol/L (98-107); Creatinine, Serum 3.36 mg/dL (0.70-1.30); EST Glomerular Filtration Rate 19 mL/min (>60); Est Glom Filt Rate - Afr Amer 23 mL/min (>60); Glucose 249 mg/dL (74-106); Potassium 3.7 mmol/L (3.5-5.1); Sodium Level 135 mmol/L (136-145)
[2023-08-17] MEDS: Insulin Lispro 100 UNIT/ML INSULN.PEN SC ×3 (05:40→17:26)
[2023-08-17] MEDS: Menthol/Lanolin/Calamine/Znox 113 GM Tube 1 APPLIC TOPICAL ×3 (05:41→20:43)
--- NOTE | 2023-08-17 07:13 | PCM.PN.INT ---
Assessment & Plan Assessment/Plan (1) Acute hypoxic respiratory failure: (2) Pleural effusion, right: (3) TRENA (acute kidney injury): PLAN: Plan RECOMMENDATIONS: 1. Continue assist-control mode mechanical ventilation. Wean FiO2 and PEEP for saturations greater than 90%. 2. Consider IVC filter placement so that systemic anticoagulation can be discontinued. Vascular surgery consultation placed. 3. Continue antimicrobials. 4. Discontinue corticosteroids. 5. Continue tube feeding as tolerated. 6. Continue appropriate GI prophylaxis. IMPRESSIONS: 1. Acute hypoxemic respiratory failure Initially, the patient's respiratory decompensation was felt to be a consequence of decompensated heart failure with preserved ejection fraction in the setting of an NSTEMI. However, underlying infection related to stenotrophomonas seems more likely. Subsequent attempts at volume optimization led to no significant improvement in his respiratory status. The patient was also diagnosed with a right lower extremity DVT and small nonocclusive right lower lobe PE. He was subsequently initiated on a weight-based heparin infusion. Ultimately, the patient continued to decompensate from a respiratory perspective and required intubation. Upon intubation, the patient was noted to have a significant amount of bleeding from his endotracheal tube, raising the suspicion for diffuse alveolar hemorrhage. Nevertheless, subsequent bronchoscopy was not consistent with DAH. The patient underwent thoracentesis as well from the right hemithorax which appeared to be transudative in nature. Cardiac catheterization has already been completed, for which medical therapy was recommended. The patient continues to have a tenuous respiratory status on the ventilator, requiring high FiO2, and continues to experience frequent bloody secretions/clots. Over concerns that the ongoing bloody secretions could be contributing to his persistent high oxygenation requirement, I did discuss with vascular surgery about the possibility of placing an IVC filter so that systemic anticoagulation can be discontinued. In the interim, the patient will be continued on assist-control mode of mechanical ventilation with FiO2 and PEEP weaned as tolerated. 2. NSTEMI/acute decompensated heart failure with preserved ejection fraction Management per cardiology. 3. Acute on chronic kidney disease Nephrology is following. The patient's worsening renal insufficiency is likely multifactorial and related to prerenal etiology coupled with possible contrast nephropathy from recent catheterization and CTA chest. Continue ongoing dialysis support per nephrology recommendations. TIME: 32 minutes, independent of procedures, was spent addressing the patient's acute hypoxemic respiratory failure, NSTEMI, acute decompensated heart failure with preserved ejection fraction, stenotrophomonas pneumonia, acute on chronic kidney disease, review of all data and collaboration with care team. Subjective Subjective The patient was seen and examined at the bedside this morning. Events from the last 24 hours have been reviewed. The patient is currently afebrile, hemodynamically stable and maintaining appropriate oxygen saturations on assist-control mode mechanical ventilation with an FiO2 requirement of 70% and PEEP of 8. The patient continues to have bloody endotracheal tube secretions. He remains on a weight-based heparin infusion, along with antimicrobials. The patient is currently documented to be approximately even for the hospitalization from a volume perspective. White blood cell count has increased to 19,000 this morning. Blood counts are stable. Objective Data Objective Data The patient's most recent lab work, culture data and imaging studies have all been personally reviewed. Surface echocardiogram demonstrated normal LV size and function with an ejection fraction of 55%. Doppler study was positive for right-sided DVT. Sputum culture was positive for stenotrophomonas. Vital Signs: Vital Signs Temp Pulse Resp BP Pulse Ox O2 Del Method O2 Flow Rate 97 F L 89 16 119/79 89 Mechanical Ventilator 60 08/17/23 04:00 08/17/23 07:00 08/17/23 07:00 08/17/23 07:00 08/17/23 07:00 08/17/23 07:00 08/15/23 07:00 FiO2 70 08/17/23 07:00 Oxygen Flow Rate (L/min) 60 Oxygen Delivery Method Mechanical Ventilator Weight: 187 lb 9.814 oz Body Mass Index (BMI) 30.1 Intake & Output: Intake and Output for Last 24 Hours 08/15/23 08/16/23 08/17/23 23:59 23:59 23:59 Intake Total 1460.61 / 1690.61 2550.93 / 2671.03 396.41 / 396.41 Output Total 1740 / 1740 625 / 925 300 / 300 Balance -279.39 / -49.39 1925.93 / 1746.03 96.41 / 96.41 Lab / Micro Data Attestation: I reviewed the patient's lab results. 08/17/23 03:40 08/17/23 03:40 Labs: Laboratory Results - last 24 hr 08/16/23 11:19: POC Glucose 279 H 08/16/23 17:19: POC Glucose 307 H 08/16/23 21:07: POC Glucose 282 H 08/17/23 03:40: WBC 18.9 H, RBC 3.92 L, Hgb 9.9 L, Hct 33.5 L, MCV 85.5, MCH 25.3 L, MCHC 29.6 L, RDW Std Deviation 50.4 H, RDW Coeff of Raghavendra 17.6 H, Plt Count 344, MPV 12.8 H, Immature Gran % (Auto) 3.100 H, Neut % (Auto) 84.5 H, Lymph % (Auto) 4.4 L, [place] % (Auto) 7.7, Eos % (Auto) 0.1, Baso % (Auto) 0.2, Absolute Neuts (auto) 15.9 H, Absolute Lymphs (auto) 0.83, Nucleated RBC % 0.1, APTT 60.3 H, Sodium 135 L, Potassium 3.7, Chloride 100, Carbon Dioxide 24.0, Anion Gap 11, BUN 103 H*, Creatinine 3.36 H, Estim Creat Clear Calc 20.30, Est GFR (MDRD) Af Amer 23 L, Est GFR (MDRD) Non-Af 19 L, BUN/Creatinine Ratio 30.7 H, Glucose 249 H, Calcium 8.3 L Micro: Microbiology 08/11/23 15:14 Fluid - Pleural (Lung) Gram Stain - Final 08/11/23 15:14 Fluid - Pleural (Lung) Body Fluid Culture - Final Culture exhibits no growth. 08/11/23 15:14 Fluid - Pleural (Lung) Anaerobic Culture - Final No growth in 5 days. 08/12/23 12:29 Wash - Bronchial Gram Stain - Final 08/12/23 12:29 Wash - Bronchial Respiratory Culture - Final Stenotrophomonas maltophilia 08/11/23 09:59 Sputum, Induced/Lukens Gram Stain - Final 08/11/23 09:59 Sputum, Induced/Lukens Respiratory Culture - Final Stenotrophomonas maltophilia 08/12/23 10:49 Nasal Secretion SARS-CoV-2 Antigen (Rapid) - Final 08/04/23 00:00 Sputum, Expectorated/Coughed Gram Stain - Final 08/04/23 00:00 Sputum, Expectorated/Coughed Respiratory Culture - Final 08/03/23 21:57 Urine, Random Legionella Antigen - Final 08/03/23 21:57 Urine, Random Streptococcus pneumoniae Antigen (M - Final 08/03/23 18:30 Mucosa - Nose SARS-CoV-2, Influenza & RSV (PCR) - Final ABG Data ABG results: ABG 08/11/23 10:13 Specimen Type ART Sample Site L Radial pH 7.47 H Bicarbonate Actual 36.1 H Total CO2 38 Base Excess 13 H O2 Saturation 99 O2 % 50.0 ABG pCO2 49.8 H ABG pO2 132 H Abhijit Test Positive Respiration Rate 14 O2 Delivery Device Adult Vent Vent Mode AC Tidal Volume 500.0 POC PEEP 10 Radiography Diagnostic Testing: Radiology Impression Chest X-Ray 08/16/23 06:26 IMPRESSION: Stable exam. Electronically Signed: Mehdi Ernandez MD at 8:26 EDT , Physical Exam Const Constitutional Narrative: Intubated, sedated and mechanically ventilated. No ventilator dyssynchrony noted. HEENT normocephalic and head/scalp atraumatic Mouth: endotracheal tube in place and OG tube in place Eyes PERRL, EOMs intact bilaterally and conjunctivae normal Neck supple General: trachea midline Chest inspection of chest normal Resp Auscultation: rhonchi and diminished lung sounds; Negative for rales or wheezes Cardio regular rate, regular rhythm, S1 normal heart sound and S2 normal heart sound GI normal to inspection, nondistended, normoactive bowel sounds Extremity no clubbing, cyanosis or edema Skin no rashes or lesions noted Neuro Neuro Narrative: Alert and able to follow simple commands. Sensorium / Orientation: sedated on vent Charges/Coding Procedures Hospitalists Procedures: [id number] Critical Care 1st Hr
[2023-08-17] MEDS: fentaNYL drip 100 ML 10 MCG CONT INF ×2 (07:43→17:24)
[2023-08-17 09:22] LABS: Bacteria 0 SEEN /hpf (None Seen); Mucous, Urine 0 SEEN /hpf (<or=2+); Squamous Epithelial Cells - UA 0 SEEN /hpf (0-5); White Blood Cells 0 SEEN /hpf (0-5)
--- NOTE | 2023-08-17 09:25 | PN.HOSP_ITS ---
Reason for Visit Reason for Visit: Exertional dyspnea Subjective Subjective Patient did better throughout the day yesterday with weaning of oxygen however overnight oxygen requirements went up and he is currently on 80% FiO2. Discussed with pulmonary/critical care medicine and they would like to stop his heparin drip as he is having some intermittent bloody secretions. Will plan for IVC filter placement. Objective Data Objective Data Vital Signs: Vital Signs Temp Pulse Resp BP Pulse Ox O2 Del Method O2 Flow Rate 97.0 F L 87 17 115/70 92 Mechanical Ventilator 60 08/17/23 07:45 08/17/23 09:15 08/17/23 09:15 08/17/23 09:15 08/17/23 09:15 08/17/23 09:15 08/15/23 07:00 FiO2 80 08/17/23 09:15 Oxygen Flow Rate (L/min) 60 Oxygen Delivery Method Mechanical Ventilator Weight: 85.1 kg Body Mass Index (BMI) 30.1 Intake & Output: Intake and Output for Last 24 Hours 08/15/23 08/16/23 08/17/23 23:59 23:59 23:59 Intake Total 1460.61 / 1690.61 2550.93 / 2671.03 486.15 / 486.15 Output Total 1740 / 1740 625 / 925 300 / 300 Balance -279.39 / -49.39 1925.93 / 1746.03 186.15 / 186.15 Lab / Micro Data 08/17/23 03:40 08/17/23 03:40 Labs: Laboratory Results - last 24 hr 08/16/23 11:19: POC Glucose 279 H 08/16/23 17:19: POC Glucose 307 H 08/16/23 21:07: POC Glucose 282 H 08/17/23 03:40: WBC 18.9 H, RBC 3.92 L, Hgb 9.9 L, Hct 33.5 L, MCV 85.5, MCH 25.3 L, MCHC 29.6 L, RDW Std Deviation 50.4 H, RDW Coeff of Raghavendra 17.6 H, Plt Count 344, MPV 12.8 H, Immature Gran % (Auto) 3.100 H, Neut % (Auto) 84.5 H, Lymph % (Auto) 4.4 L, [place] % (Auto) 7.7, Eos % (Auto) 0.1, Baso % (Auto) 0.2, Absolute Neuts (auto) 15.9 H, Absolute Lymphs (auto) 0.83, Nucleated RBC % 0.1, APTT 60.3 H, Sodium 135 L, Potassium 3.7, Chloride 100, Carbon Dioxide 24.0, Anion Gap 11, BUN 103 H*, Creatinine 3.36 H, Estim Creat Clear Calc 20.30, Est GFR (MDRD) Af Amer 23 L, Est GFR (MDRD) Non-Af 19 L, BUN/Creatinine Ratio 30.7 H , Glucose 249 H, Calcium 8.3 L Micro: Microbiology 08/11/23 15:14 Fluid - Pleural (Lung) Gram Stain - Final 08/11/23 15:14 Fluid - Pleural (Lung) Body Fluid Culture - Final Culture exhibits no growth. 08/11/23 15:14 Fluid - Pleural (Lung) Anaerobic Culture - Final No growth in 5 days. 08/12/23 12:29 Wash - Bronchial Gram Stain - Final 08/12/23 12:29 Wash - Bronchial Respiratory Culture - Final Stenotrophomonas maltophilia 08/11/23 09:59 Sputum, Induced/Lukens Gram Stain - Final 08/11/23 09:59 Sputum, Induced/Lukens Respiratory Culture - Final Stenotrophomonas maltophilia 08/12/23 10:49 Nasal Secretion SARS-CoV-2 Antigen (Rapid) - Final 08/04/23 00:00 Sputum, Expectorated/Coughed Gram Stain - Final 08/04/23 00:00 Sputum, Expectorated/Coughed Respiratory Culture - Final 08/03/23 21:57 Urine, Random Legionella Antigen - Final 08/03/23 21:57 Urine, Random Streptococcus pneumoniae Antigen (M - Final 08/03/23 18:30 Mucosa - Nose SARS-CoV-2, Influenza & RSV (PCR) - Final Physical Exam Const no apparent distress Constitutional Narrative: Older, overweight, white male, lying in bed intubated and sedated, ICU nursing and dialysis nurse at bedside HEENT normocephalic, head/scalp atraumatic and moist oral mucous membranes HEENT Narrative: ET tube and OG in place, intermittent bloody secretions from suction catheter Resp normal respiratory effort, no retractions and no use of accessory muscles Resp Narrative: Diminished at bases bilaterally, breath sounds are coarse diffusely Auscultation: Negative for rales, rhonchi or wheezes Cardio regular rate, regular rhythm, S1 normal heart sound, S2 normal heart sound, no murmurs, no rub, no gallops and no clicks GI normal to inspection, nondistended, normoactive bowel sounds, soft to palpation and non-tender Extremity no clubbing, cyanosis or edema Extremity Narrative: Right upper extremity PICC in place-dressing is clean dry and intact Neuro Neuro Narrative: Intubated and sedated Psych Psych Narrative: Unable to assess as patient is intubated and sedated Assessment & Plan Assessment/Plan (1) TRENA (acute kidney injury): (2) Chronic kidney disease, stage 3b: (3) Pneumonia: QUALIFIERS: Pneumonia type: due to unspecified organism (4) Acute hypoxic respiratory failure: PLAN: Plan Acute hypoxic respiratory failure-multifactorial(NSTEMI/pneumonia/pulmonary embolism/volume overload) -Intubated 08/11/2023 for worsening respiratory status--> day 6 -Remains on mechanical ventilation with worsening respiratory status currently on FiO2 of 80% -Intermittent bloody secretions the plan is to stop heparin drip after IVC is placed -Vascular surgery consulted for IVC placement -Chest x-ray appears to be consistent with ARDS -Repeat sputum/blood cultures and UA -If UA is suggestive of infection will send culture -Continue heparin drip for PE until IVC filter can be placed -Continue Mucinex -As needed albuterol -Patient is now off steroids -Propofol for sedation/fentanyl for sedation--> sedation vacations and weaning trials as able -Tube feeds are now running at goal -CCM/pulmonary medicine following-appreciate input Leukocytosis -Trending up -Will discontinue Levaquin -Start cefepime and vancomycin -Cefepime 1 g now and then 1 g after dialysis on dialysis days -Check blood and sputum cultures -Check UA and if suggestive of infection will check urine culture Acute NSTEMI -Cardiac catheterization done on 08/08/2023 showed a normal left main, first diagonal with 90% long proximal stenosis, LAD with mild disease, nondominant left circumflex with first obtuse marginal branch noting 70% stenosis and a totally occluded RCA with [id number] collaterals -Medical therapy recommended -Continue metoprolol 12.5 mg p.o. daily with hold parameters -Continue statin 40 mg nightly -Continue baby aspirin 81 mg daily -Cardiology is following-appreciate input -Will need outpatient follow-up after discharge Mild hyponatremia -Sodium has fluctuated but remained stable at 135 today -likely related to volume status -Continue to monitor with dialysis Acute HFpEF secondary to NSTEMI -Continue dialysis as needed for fluid management TRENA on CKD stage IIIb -Continue dialysis per nephrology -Serologies are all unremarkable except C4 was slightly elevated at 46 -Current working diagnosis is TRENA secondary to ATN -Avoid nephrotoxins as able -Renally dose medications -Patient is making some urine but no signs of recovery as of yet -Nephrology is following Pulmonary embolus/right lower extremity DVT -Continue heparin drip and transition to Eliquis when appropriate Pleural effusion-transudative -Status post right thoracentesis for 1200 cc removal -Monitor clinically and with intermittent imaging for recurrent Stenotrophomonas pneumonia -Discontinue Levaquin and transition to vancomycin and cefepime Leukocytosis -Appears to be stable but slightly elevated in the mid 14 range Acute on chronic anemia -Baseline hemoglobin appears to run between 10 and 12 -Currently remained stable at 9.9 -Hemoglobin remained stable Hypertension -Patient on chlorthalidone and amlodipine at baseline -These medications are on hold -Continue metoprolol with hold parameters due to coronary disease -Continue to monitor blood pressure Invasive urothelial carcinoma -Status post transurethral resection of large bladder tumor and robotic assisted laparoscopic nephroureterectomy with bladder closure -done by Dr. Watts in February 2023 -Currently has solitary kidney -Ongoing outpatient follow-up -Acute cystitis ruled out DVT/GI prophylaxis -Heparin drip until IVC can be placed -IV PPI CODE STATUS -DNR CCA with short-term intubation Charges/Coding Visit Charges Inpatient E&M: 68747 [facility] Hosp L2
[2023-08-17 09:27] LABS: Color, Urine Yellow (Yellow); Glucose, Dipstick Normal (Normal); Ketone-Dipstick Negative (Negative); Leukocyte Esterase-Dipstick Negative /ul (Negative); Nitrite-Dipstick Negative (Negative); Occult Blood-Urine 250 /ul (Negative); Protein-Dipstick 30 mg/dl (Negative); Urine Bilirubin Dipstick Negative (Negative); Urine Clarity Clear (Clear); Urine Urobilinogen Normal (Normal)
[2023-08-17 09:37] LABS: Red Blood Cells-Urine 25-50 SEEN /hpf (0-5)
[2023-08-17] MEDS: 0.9% Normal Saline 1,000 ML IV.SOLN. 1000 ML OPERA.SITE (10:55)
[2023-08-17] MEDS: Heparin 10,000 UNITS/10 ML Vial IV (10:55)
[2023-08-17] MEDS: PureFlow B 3K Dialysis Soln 1 BAG 6 BAG PF (10:55)
[2023-08-17] MEDS: 0.9% Saline Lock 10 ML Syringe IV (10:56)
--- NOTE | 2023-08-17 11:07 | PN.RENAL_ITS ---
Subjective Subjective Remains intubated. This morning he is off sedation. Urine output is about 600 to 800 cc. Fluid removal limited by low blood pressure. Overnight oxygen requirements have increased. Significant hemoptysis through ET tube. Discussed with ICU attending. Plan for IVC filter so that he can be off heparin drip. Objective Data Objective Data Vital Signs: Vital Signs Temp Pulse Resp BP Pulse Ox O2 Del Method O2 Flow Rate 98.5 F 83 16 111/69 94 Mechanical Ventilator 60 08/17/23 10:00 08/17/23 11:00 08/17/23 11:00 08/17/23 11:00 08/17/23 11:00 08/17/23 11:00 08/15/23 07:00 FiO2 80 08/17/23 11:00 Oxygen Flow Rate (L/min) 60 Oxygen Delivery Method Mechanical Ventilator Weight: 85.1 kg Body Mass Index (BMI) 30.1 Intake & Output: Intake and Output for Last 24 Hours 08/15/23 08/16/23 08/17/23 23:59 23:59 23:59 Intake Total 1460.61 / 1690.61 2550.93 / 2671.03 626.35 / 626.35 Output Total 1740 / 1740 625 / 925 300 / 300 Balance -279.39 / -49.39 1925.93 / 1746.03 326.35 / 326.35 Lab / Micro Data 08/17/23 03:40 08/17/23 03:40 Labs: Laboratory Results - last 24 hr 08/16/23 11:19: POC Glucose 279 H 08/16/23 17:19: POC Glucose 307 H 08/16/23 21:07: POC Glucose 282 H 08/17/23 03:40: WBC 18.9 H, RBC 3.92 L, Hgb 9.9 L, Hct 33.5 L, MCV 85.5, MCH 25.3 L, MCHC 29.6 L, RDW Std Deviation 50.4 H, RDW Coeff of Raghavendra 17.6 H, Plt Count 344, MPV 12.8 H, Immature Gran % (Auto) 3.100 H, Neut % (Auto) 84.5 H, Lymph % (Auto) 4.4 L, [place] % (Auto) 7.7, Eos % (Auto) 0.1, Baso % (Auto) 0.2, Absolute Neuts (auto) 15.9 H, Absolute Lymphs (auto) 0.83, Nucleated RBC % 0.1, APTT 60.3 H, Sodium 135 L, Potassium 3.7, Chloride 100, Carbon Dioxide 24.0, Anion Gap 11, BUN 103 H*, Creatinine 3.36 H, Estim Creat Clear Calc 20.30, Est GFR (MDRD) Af Amer 23 L, Est GFR (MDRD) Non-Af 19 L, BUN/Creatinine Ratio 30.7 H , Glucose 249 H, Calcium 8.3 L 08/17/23 09:00: Urine Color Yellow, Urine Clarity Clear, Urine pH 5.0, Ur Specific [place] 1.020, Urine Protein 30 H, Urine Glucose (UA) Normal, Urine Ketones Negative, Urine Occult Blood 250 H, Urine Nitrite Negative, Urine Bilirubin Negative, Urine Urobilinogen Normal, Ur Leukocyte Esterase Negative, Urine RBC 25-50 SEEN, Urine WBC 0 SEEN, Ur Squamous Epith Cells 0 SEEN, Urine Bacteria 0 SEEN, Urine Mucus 0 SEEN Micro: Microbiology 08/11/23 15:14 Fluid - Pleural (Lung) Gram Stain - Final 08/11/23 15:14 Fluid - Pleural (Lung) Body Fluid Culture - Final Culture exhibits no growth. 08/11/23 15:14 Fluid - Pleural (Lung) Anaerobic Culture - Final No growth in 5 days. 08/12/23 12:29 Wash - Bronchial Gram Stain - Final 08/12/23 12:29 Wash - Bronchial Respiratory Culture - Final Stenotrophomonas maltophilia 08/11/23 09:59 Sputum, Induced/Lukens Gram Stain - Final 08/11/23 09:59 Sputum, Induced/Lukens Respiratory Culture - Final Stenotrophomonas maltophilia 08/12/23 10:49 Nasal Secretion SARS-CoV-2 Antigen (Rapid) - Final 08/04/23 00:00 Sputum, Expectorated/Coughed Gram Stain - Final 08/04/23 00:00 Sputum, Expectorated/Coughed Respiratory Culture - Final 08/03/23 21:57 Urine, Random Legionella Antigen - Final 08/03/23 21:57 Urine, Random Streptococcus pneumoniae Antigen (M - Final 08/03/23 18:30 Mucosa - Nose SARS-CoV-2, Influenza & RSV (PCR) - Final Physical Exam Narrative on vent support no obvious distress s1s2 no murmurs lungs clear anteriorly abdomen soft no edema indwelling de leon Const alert and oriented x3 General Appearance: well developed Orientation / Consciousness: oriented to person, oriented to place and oriented to time HEENT normocephalic Neck no lymphadenopathy Resp Auscultation: crackles right and left GI non-tender Auscultation: normoactive bowel sounds Neuro Sensorium / Orientation: awake and alert Psych cooperative Assessment & Plan Assessment/Plan (1) TRENA (acute kidney injury): PLAN: 72-year-old male with past medical history significant for 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 Terry (after surgery, his baseline creatinine has been around 2.0), presented to the emergency room on 08/02 with complaints of shortness of breath with exertion, admitted for non-STEMI, suspected pneumonia. - TRENA superimposed on CKD; baseline creatinine around 2.0. Acute renal failure was felt to be related to cardiorenal syndrome. Serology results: p-ANCA, c- ANCA, double-stranded DNA, glomerular basement membrane antibody, C3 all normal. C4 complement slightly elevated at 46. possibly TRENA from ischemic ATN. SCr 2 on admission and for few days SCr ranging around 2.4-2.6mg/dL even while on lasix gtt. 08/09 SCr 3.02 and lasix gtt stopped. Started on dialysis 08/12/2023. Last dialysis on 08/15/2023. Dialysis today. Seen on dialysis. Fluid removal limited. He also makes urine about 6 to 800 cc a day. - Acute hypoxemic respiratory failure with unclear etiology--> sputum culture growing stenotropomonas. Found to have diffuse alveolar hemorrhage on bronchosc opy. Small segment PE on CT PE protocol. Hypoxia is likely due to a combination of all these factors. CT angiogram: No big thrombus seen, small pulmonary emboli, bilateral pleural effusions right greater than left with diffuse bilateral pulmonary infiltrates involving upper and lower lobes. S/p pleural tap, transudative. - NSTEMI, acute decompensated heart failure with preserved EF; cardiac cath 08/07. Cardiology following. Might need another intervention eventually. Discussed with ICU attending. Dialysis today. Might get IVC filter. (2) Chronic kidney disease, stage 3b:
[2023-08-17 11:40] LABS: Bedside Glucose 211 mg/dL (74-106)
[2023-08-17] MEDS: Insulin Glargine-YFGN 100 UNIT/ML Pen 15 UNIT SC (11:58)
[2023-08-17] MEDS: Vital AF 1.2 Cal Liquid 1,000 ML 60 ML GT (11:59)
[2023-08-17] MEDS: Aspirin 81 MG TAB.CHEW GT (11:59)
[2023-08-17] MEDS: Chlorhexidine 15 ML PO ×2 (11:59→20:42)
[2023-08-17] MEDS: CHLORHEXIDINE GLUC 2% CLOTH 1 EACH TOWELETTE TOPICAL (12:00)
[2023-08-17] MEDS: Pantoprazole Sodium 40 MG in 0.9% Normal Saline (100mL MB+) 100 ML 330 MG IV (12:00)
[2023-08-17] MEDS: Vancomycin HCl 1,250 MG in 0.9% Normal Saline (250mL Bag) 250 ML 167 MG IV (12:23)
--- NOTE | 2023-08-17 14:10 | PCM.RX.CS ---
Consult Antibiotic Management Pharmacy has been consulted to manage selected antibiotic: Vancomycin Type of Intervention Type of Consult: New start Labs Labs: Sodium 135 mmol/L (136-145) L 08/17/23 03:40 Potassium 3.7 mmol/L (3.5-5.1) 08/17/23 03:40 Chloride 100 mmol/L (98-107) 08/17/23 03:40 Carbon Dioxide 24.0 mmol/L (21.0-32.0) 08/17/23 03:40 Anion Gap 11 (5-15) 08/17/23 03:40 BUN 103 mg/dL (7-18) H* 08/17/23 03:40 Creatinine 3.36 mg/dL (0.70-1.30) H 08/17/23 03:40 Est GFR (MDRD) Af Amer 23 mL/min (>60) L 08/17/23 03:40 Est GFR (MDRD) Non-Af 19 mL/min (>60) L 08/17/23 03:40 BUN/Creatinine Ratio 30.7 RATIO (10-20) H 08/17/23 03:40 Glucose 249 mg/dL (74-106) H 08/17/23 03:40 Vancomycin Trough 29.3 ug/mL (5.0-15.0) H 08/11/23 16:45 Microbiology Microbiology: Microbiology 08/11/23 15:14 Fluid - Pleural (Lung) Gram Stain - Final 08/11/23 15:14 Fluid - Pleural (Lung) Body Fluid Culture - Final Culture exhibits no growth. 08/11/23 15:14 Fluid - Pleural (Lung) Anaerobic Culture - Final No growth in 5 days. 08/12/23 12:29 Wash - Bronchial Gram Stain - Final 08/12/23 12:29 Wash - Bronchial Respiratory Culture - Final Stenotrophomonas maltophilia 08/11/23 09:59 Sputum, Induced/Lukens Gram Stain - Final 08/11/23 09:59 Sputum, Induced/Lukens Respiratory Culture - Final Stenotrophomonas maltophilia 08/12/23 10:49 Nasal Secretion SARS-CoV-2 Antigen (Rapid) - Final 08/04/23 00:00 Sputum, Expectorated/Coughed Gram Stain - Final 08/04/23 00:00 Sputum, Expectorated/Coughed Respiratory Culture - Final 08/03/23 21:57 Urine, Random Legionella Antigen - Final 08/03/23 21:57 Urine, Random Streptococcus pneumoniae Antigen (M - Final 08/03/23 18:30 Mucosa - Nose SARS-CoV-2, Influenza & RSV (PCR) - Final Dosing Weight Weight used for dosin.1 kg Estimated Creatinine Clearance Estimated Creatinine Clearance: ON HD Goal Trough Goal Trough: 15-20 mcg/mL Pharmacy Plan for Drug Dosing Pharmacy Plan for Drug Dosing: Give initial standard dose (15mg/kg) of 1250mg IV x1 as ordered today. The patient is getting dialysis most likely on a Tue/Tue/Tue schedule and had dialysis today. Will schedule a 2nd dose of vanc 750mg (based on the patient's weight) to be given after the next dialysis session on Tuesday, per [facility] protocol for dosing vanc in hemodialysis patients. Then, before Tuesday's dialysis session, will check a vanc random level to be drawn and will use that level to determine if a dose should be given then. Will continue to monitor the dialysis schedule and make adjustments to dosing and/or vanc levels if needed. Pharmacy Service will continue to monitor and adjust dosing as required. Follow-Up Labs Follow-Up Labs: Trough: Vancomycin (random pre-HD) Date/Time Labs Ordered Labs to be done on [date and time ordered]: 08/22/23 0600 pre-HD
[2023-08-17] MEDS: Cefepime HCl 1 GM in 0.9% Normal Saline (50mL MB+) 50 ML IV (14:22)
--- NOTE | 2023-08-17 17:19 | CON.PCM.SX_ITS ---
Assessment & Plan Assessment/Plan (1) DVT (deep venous thrombosis): (2) Pulmonary embolus, right: PLAN: Plan Patient is an appropriate candidate for IVC Filter. As noted, he is sedated and intubated. The procedure including risks, benefits, and recovery were discussed in detail with his Duc who is also his healthcare POA. All of her questions were answered. She is agreeable to proceed with IVC Filter insertion. Plan is for IVC Filter insertion in the wood and wood products labourer tomorrow likely late morning pending wood and wood products labourer availability. HPI Consult Data Date of Consult: 08/17/23 HPI Narrative HPI Narrative: DINH SIN, is a 72 M who initially presented to [facility] ER on 08/03/23 with progressive dyspnea and was admitted to the ICU. He had progressive oxygen requirements which initially was felt secondary to CHF but now is felt to be more likely secondary to pneumonia. There was also concern for possible PE contributing. He had venous duplex on 08/05/23 which showed R peroneal vein DVT. He had CTA Chest on 08/09/23 which showed small R pulmonary emboli. CTA Chest had been delayed due to his acute on chronic kidney injury. He was anticoagulated with Heparin with no improvement in his pulmonary status. At this time, he is sedated on mechanical ventilation. With intubation, he was noted to have bleeding from the ET tube. Bronchoscopy was not consistent with DAH. He continues to have frequent bloody secretions and requiring high FiO2. With these ongoing bloody secretions, it is felt that the heparin needs to be held. For this reason, we are consulted for IVC filter insertions. Patient's Duc is his healthcare POA. [facility] Medical History Bladder disease Cancer Former smoker Prostate disease Wears glasses Home Medications amlodipine 5 mg tablet 5 mg PO DAILY BP 01/26/23 [History Last Taken 08/03/23] chlorthalidone 25 mg tablet 25 mg PO DAILY BP 01/26/23 [History Last Taken 08/03/23] Allergy/AdvReac Type Severity Reaction Status Date / Time No Known Allergies Allergy Verified 08/03/23 13:48 Surgical History History of cataract extraction with lens replacement (~2015) History of hernia repair (~1975) History of surgery of head (~1991) History of toe surgery History of transurethral resection of bladder tumor (TURBT) Social History Smoking Status: Former smoker Physical Exam Const Constitutional Narrative: Patient is sedated and mechanically ventilated. HEENT HEENT Narrative: ET tube and OG in place Resp no retractions Resp Narrative: mechanically ventilated, Cardio Rate: regular rate Rhythm: regular rhythm Extremity no clubbing, cyanosis or edema Skin no rashes or lesions noted Neuro Neuro Narrative: intubated and sedated Lab / Micro Data 08/17/23 03:40 08/17/23 03:40 Labs: Laboratory Results - last 24 hr 08/12/23 12:29: Miscellaneous Cytology SEE PATHOLOGY REPORT 08/16/23 17:19: POC Glucose 307 H 08/16/23 21:07: POC Glucose 282 H 08/17/23 03:40: WBC 18.9 H, RBC 3.92 L, Hgb 9.9 L, Hct 33.5 L, MCV 85.5, MCH 25 .3 L, MCHC 29.6 L, RDW Std Deviation 50.4 H, RDW Coeff of Raghavendra 17.6 H, Plt Count 344, MPV 12.8 H, Immature Gran % (Auto) 3.100 H, Neut % (Auto) 84.5 H, Lymph % (Auto) 4.4 L, [place] % (Auto) 7.7, Eos % (Auto) 0.1, Baso % (Auto) 0.2, Absolute Neuts (auto) 15.9 H, Absolute Lymphs (auto) 0.83, Nucleated RBC % 0.1, APTT 60.3 H, Sodium 135 L, Potassium 3.7, Chloride 100, Carbon Dioxide 24.0, Anion Gap 11, BUN 103 H*, Creatinine 3.36 H, Estim Creat Clear Calc 20.30, Est GFR (MDRD) Af Amer 23 L, Est GFR (MDRD) Non-Af 19 L, BUN/Creatinine Ratio 30.7 H, Glucose 249 H, Calcium 8.3 L 08/17/23 09:00: Urine Color Yellow, Urine Clarity Clear, Urine pH 5.0, Ur Specific [place] 1.020, Urine Protein 30 H, Urine Glucose (UA) Normal, Urine Ketones Negative, Urine Occult Blood 250 H, Urine Nitrite Negative, Urine Bilirubin Negative, Urine Urobilinogen Normal, Ur Leukocyte Esterase Negative, Urine RBC 25-50 SEEN, Urine WBC 0 SEEN, Ur Squamous Epith Cells 0 SEEN, Urine Bacteria 0 SEEN, Urine Mucus 0 SEEN 08/17/23 11:16: POC Glucose 211 H Micro: Microbiology 08/17/23 09:15 Sputum, Induced/Lukens Gram Stain - Final
[2023-08-17 17:40] LABS: Bedside Glucose 209 mg/dL (74-106)
[2023-08-17] MEDS: Atorvastatin Calcium 40 MG Tablet GT (20:40)
[2023-08-18] VITALS (37 sets, daily range): BP systolic 84–114; BP diastolic 56–74; PULSE 76–105; RESP 16–98; TEMP 36.6–37.2; O2SAT 16–99; BMI 30.3
[2023-08-18 00:42] LABS: Bedside Glucose 174 mg/dL (74-106)
[2023-08-18] MEDS: Propofol 10MG/Ml 1,000 MG/100 ML Bottle 10.1 MG CONT INF ×3 (03:02→19:29)
[2023-08-18] MEDS: 0.9% Saline Lock 10 ML Syringe IV (04:09)
[2023-08-18] MEDS: fentaNYL drip 100 ML 10 MCG CONT INF ×3 (04:09→23:06)
[2023-08-18 04:22] LABS: Absolute Lymphocyte Count 0.87 X10^3/uL (0.83-4.51); Absolute Neutrophil Count 13.6 X10^3/uL (2.0-7.7); Basophil# 0.04 X10^3/uL; Basophil% 0.2 % (0-1); Eosinophil# 0.35 X10^3/uL; Eosinophils% 2.1 % (0-5); Hematocrit 32.5 % (40-54); Hemoglobin 9.6 g/dL (13.0-16.5); Lymphocyte # 0.87 X10^3/ul (0.83-4.51); Lymphocyte % 5.3 % (19-41); Mean Corp Hgb Conc 29.5 g/dL (32-36); Mean Corpuscular Hgb 25.8 pg (27.0-32.0); Mean Corpuscular Volume 87.4 fL (80-94); Monocyte# 1.21 X10^3/uL; Monocyte% 7.3 % (0-10); NRBC Flagged by Analyzer 0 % (0-5); Neutrophil # 13.58 X10^3/uL (2.7-7.7); Neutrophil % 82.5 % (47-70); Platelet Count 264 K/mm3 (150-450); RBC Distribution Width CV 17.9 % (11.6-14.6); RBC Distribution Width SD 52.8 fl (35.1-43.9); Red Blood Count 3.72 M/mm3 (4.6-6.2); White Blood Count 16.5 K/mm3 (4.4-11.0)
[2023-08-18 04:32] LABS: Partial Thromboplast Time 62.9 Seconds (24.1-36.2)
[2023-08-18 04:38] LABS: Anion Gap 10 (5-15); BUN 76 mg/dL (7-18); BUN/Creat Ratio 27.2 RATIO (10-20); Chloride 102 mmol/L (98-107); Creatinine, Serum 2.79 mg/dL (0.70-1.30); EST Glomerular Filtration Rate 24 mL/min (>60); Est Glom Filt Rate - Afr Amer 29 mL/min (>60); Glucose 173 mg/dL (74-106); Potassium 3.7 mmol/L (3.5-5.1); Sodium Level 136 mmol/L (136-145)
[2023-08-18] MEDS: Menthol/Lanolin/Calamine/Znox 113 GM Tube 1 APPLIC TOPICAL ×2 (05:14→21:03)
[2023-08-18 05:32] LABS: Bedside Glucose 162 mg/dL (74-106)
[2023-08-18 05:47] LABS: Cytology, Body Fluid / CSF SEE PATHOLOGY REPORT
--- NOTE | 2023-08-18 06:48 | PCM.PN.INT ---
Assessment & Plan Assessment/Plan (1) Acute hypoxic respiratory failure: (2) Pleural effusion, right: (3) TRENA (acute kidney injury): PLAN: Plan RECOMMENDATIONS: 1. Continue assist-control mode mechanical ventilation. Wean FiO2 and PEEP for saturations greater than 90%. 2. Once IVC filter placed, discontinue heparin infusion. 3. Continue antimicrobials. 4. Continue tube feeding as tolerated. 5. Continue appropriate GI prophylaxis. IMPRESSIONS: 1. Acute hypoxemic respiratory failure Initially, the patient's respiratory decompensation was felt to be a consequence of decompensated heart failure with preserved ejection fraction in the setting of an NSTEMI. However, underlying infection related to stenotrophomonas seems more likely. Subsequent attempts at volume optimization led to no significant improvement in his respiratory status. The patient was also diagnosed with a right lower extremity DVT and small nonocclusive right lower lobe PE. He was subsequently initiated on a weight-based heparin infusion. Ultimately, the patient continued to decompensate from a respiratory perspective and required intubation. Upon intubation, the patient was noted to have a significant amount of bleeding from his endotracheal tube, raising the suspicion for diffuse alveolar hemorrhage. Nevertheless, subsequent bronchoscopy was not consistent with DAH. The patient underwent thoracentesis as well from the right hemithorax which appeared to be transudative in nature. Cardiac catheterization has already been completed, for which medical therapy was recommended. The patient continues to have a tenuous respiratory status on the ventilator, requiring high FiO2, and continues to experience frequent bloody secretions/clots. Over concerns that the ongoing bloody secretions could be contributing to his persistent high oxygenation requirement, and IVC filter was placed on August 17 in order to facilitate discontinuation of the weight-based heparin infusion. Lastly, repeat blood cultures collected on August 16 were positive for gram-negative rods, for which the patient remains on antimicrobials. Plan to continue to wean FiO2 and PEEP to maintain saturations at or above 90%. 2. NSTEMI/acute decompensated heart failure with preserved ejection fraction Management per cardiology. 3. Acute on chronic kidney disease Nephrology is following. The patient's worsening renal insufficiency is likely multifactorial and related to prerenal etiology coupled with possible contrast nephropathy from recent catheterization and CTA chest. Continue ongoing dialysis support per nephrology recommendations. TIME: 34 minutes, independent of procedures, was spent addressing the patient's acute hypoxemic respiratory failure, NSTEMI, acute decompensated heart failure with preserved ejection fraction, stenotrophomonas pneumonia, acute on chronic kidney disease, review of all data and collaboration with care team. Subjective Subjective The patient was seen and examined at the bedside this morning. Events from the last 24 hours have been reviewed. The patient is currently afebrile, hemodynamically stable and maintaining appropriate oxygen saturations on assist-control mode of mechanical ventilation with an FiO2 requirement of 60% and PEEP of 8. Nursing staff continues to report bloody endotracheal tube secretions. The patient is tentatively scheduled to undergo IVC filter placement today. White count is elevated at 16,000 with a hemoglobin of 9.6 g/dL. The patient remains on cefepime and vancomycin. Objective Data Objective Data The patient's most recent lab work, culture data and imaging studies have all been personally reviewed. Surface echocardiogram demonstrated normal LV size and function with an ejection fraction of 55%. Doppler study was positive for right-sided DVT. Sputum culture was positive for stenotrophomonas. Preliminary blood culture dated August 16 was positive for gram-negative rods. Vital Signs: Vital Signs Temp Pulse Resp BP Pulse Ox O2 Del Method O2 Flow Rate 98.3 F 105 H 17 94/59 L 91 Mechanical Ventilator 60 08/18/23 04:00 08/18/23 06:34 08/18/23 06:34 08/18/23 06:00 08/18/23 06:34 08/18/23 06:34 08/15/23 07:00 FiO2 70 08/18/23 06:34 Oxygen Flow Rate (L/min) 60 Oxygen Delivery Method Mechanical Ventilator Weight: 188 lb 14.978 oz Body Mass Index (BMI) 30.3 Intake & Output: Intake and Output for Last 24 Hours 08/16/23 08/17/23 08/18/23 23:59 23:59 23:59 Intake Total 2550.93 / 2671.03 2352.42 / 3193.52 951.70 / 951.70 Output Total 625 / 925 2004 / 2004 200 / 200 Balance 1925.93 / 1746.03 347.42 / 1188.52 751.70 / 751.70 Lab / Micro Data Attestation: I reviewed the patient's lab results. 08/18/23 04:15 08/18/23 04:15 Labs: Laboratory Results - last 24 hr 08/11/23 15:14: Miscellaneous Cytology SEE PATHOLOGY REPORT 08/12/23 12:29: Miscellaneous Cytology SEE PATHOLOGY REPORT 08/17/23 09:00: Urine Color Yellow, Urine Clarity Clear, Urine pH 5.0, Ur Specific [place] [employer] 1.020, Urine Protein 30 H, Urine Glucose (UA) Normal, Urine Ketones Negative, Urine Occult Blood 250 H, Urine Nitrite Negative, Urine Bilirubin Negative, Urine Urobilinogen Normal, Ur Leukocyte Esterase Negative, Urine RBC 25-50 SEEN, Urine WBC 0 SEEN, Ur Squamous Epith Cells 0 SEEN, Urine Bacteria 0 SEEN, Urine Mucus 0 SEEN 08/17/23 11:16: POC Glucose 211 H 08/17/23 17:19: POC Glucose 209 H 08/18/23 00:23: POC Glucose 174 H 08/18/23 04:15: WBC 16.5 H, RBC 3.72 L, Hgb 9.6 L, Hct 32.5 L, MCV 87.4, MCH 25.8 L, MCHC 29.5 L, RDW Std Deviation 52.8 H, RDW Coeff of Raghavendra 17.9 H, Plt Count 264, MPV 13.0 H, Immature Gran % (Auto) 2.600 H, Neut % (Auto) 82.5 H, Lymph % (Auto) 5.3 L, [place] % (Auto) 7.3, Eos % (Auto) 2.1, Baso % (Auto) 0.2, Absolute Neuts (auto) 13.6 H, Absolute Lymphs (auto) 0.87, Nucleated RBC % 0, APTT 62.9 H, Sodium 136, Potassium 3.7, Chloride 102, Carbon Dioxide 24.0, Anion Gap 10, BUN 76 H, Creatinine 2.79 H, Estim Creat Clear Calc 24.70, Est GFR (MDRD) Af Amer 29 L, Est GFR (MDRD) Non-Af 24 L, BUN/Creatinine Ratio 27.2 H, Glucose 173 H, Calcium 8.0 L 08/18/23 05:13: POC Glucose 162 H Micro: Microbiology 08/17/23 09:15 Sputum, Induced/Lukens Gram Stain - Final 08/11/23 15:14 Fluid - Pleural (Lung) Gram Stain - Final 08/11/23 15:14 Fluid - Pleural (Lung) Body Fluid Culture - Final Culture exhibits no growth. 08/11/23 15:14 Fluid - Pleural (Lung) Anaerobic Culture - Final No growth in 5 days. 08/12/23 12:29 Wash - Bronchial Gram Stain - Final 08/12/23 12:29 Wash - Bronchial Respiratory Culture - Final Stenotrophomonas maltophilia 08/11/23 09:59 Sputum, Induced/Lukens Gram Stain - Final 08/11/23 09:59 Sputum, Induced/Lukens Respiratory Culture - Final Stenotrophomonas maltophilia 08/12/23 10:49 Nasal Secretion SARS-CoV-2 Antigen (Rapid) - Final 08/04/23 00:00 Sputum, Expectorated/Coughed Gram Stain - Final 08/04/23 00:00 Sputum, Expectorated/Coughed Respiratory Culture - Final 08/03/23 21:57 Urine, Random Legionella Antigen - Final 08/03/23 21:57 Urine, Random Streptococcus pneumoniae Antigen (M - Final 08/03/23 18:30 Mucosa - Nose SARS-CoV-2, Influenza & RSV (PCR) - Final ABG Data ABG results: ABG 08/11/23 10:13 Specimen Type ART Sample Site L Radial pH 7.47 H Bicarbonate Actual 36.1 H Total CO2 38 Base Excess 13 H O2 Saturation 99 O2 % 50.0 ABG pCO2 49.8 H ABG pO2 132 H Abhijit Test Positive Respiration Rate 14 O2 Delivery Device Adult Vent Vent Mode AC Tidal Volume 500.0 POC PEEP 10 Radiography Diagnostic Testing: Radiology Impression Chest X-Ray 08/16/23 06:26 IMPRESSION: Stable exam. Electronically Signed: Mehdi Ernandez MD at 8:26 EDT , Physical Exam Const Constitutional Narrative: Intubated, sedated and mechanically ventilated. No ventilator dyssynchrony noted. HEENT normocephalic and head/scalp atraumatic Mouth: endotracheal tube in place and OG tube in place Eyes PERRL, EOMs intact bilaterally and conjunctivae normal Neck supple General: trachea midline Chest inspection of chest normal Resp Auscultation: rhonchi and diminished lung sounds; Negative for rales or wheezes Cardio regular rate, regular rhythm, S1 normal heart sound and S2 normal heart sound GI normal to inspection, nondistended, normoactive bowel sounds Extremity no clubbing, cyanosis or edema Skin no rashes or lesions noted Neuro Neuro Narrative: Alert and able to follow simple commands. Sensorium / Orientation: sedated on vent Charges/Coding Procedures Hospitalists Procedures: 65155 Critical Care 1st Hr
--- NOTE | 2023-08-18 08:04 | NURSING ---
Pt to laboratory associate via laboratory associate nurses and RTs.
--- NOTE | 2023-08-18 08:37 | PCM.OPRPT ---
Report of Operation Date of Procedure: 08/18/23 Pre-Operative Diagnosis: DVT, PE, contraindication to anticoagulation Post-Operative Diagnosis: same Surgery/Procedure Performed:: insertion inferior vena cava filter Surgeon: Arnaud Estrella Type of Anesthesia: General and Local Estimated Blood Loss (mL): 2 Description of Procedure: HPI: Patient is a 72-year-old male with multiple acute medical conditions admitted to intensive care unit and on ventilatory support with failure to wean due to bloody secretions. He had small pulmonary emboli and lower extremity DVT and is felt to be appropriate for inferior vena cava filter in the hopes of resolution of his bloody secretions once heparin can be discontinued. He is taken now for inferior vena cava filter placement. Description of procedure: Upon obtaining form consent and verification correct patient procedure site patient taken to the Restaurant Kitchen Manager where he was positioned prepped and draped in usual sterile fashion. Timeout was performed and skin overlying the right common femoral vein was anesthetized 1% lidocaine. Vessels then accessed under ultrasound guidance with micropuncture needle wire to the exchanged for micropuncture sheath. Through the micropuncture sheath a ilio caval venogram was performed revealing patent and right iliac vein system and a patent normal caliber vena cava. This injection also confirmed the location of the IVC confluence as well as the renal vein complexes. Desecuritrex wire was then advanced and the micropuncture sheath exchanged out for the dilator for the Cook filter delivery system. Once this was used to dilate the subcutaneous tract and this was then exchanged out for the Cook delivery sheath advanced into position below the lowest renal vein. The inner dilator is then withdrawn and a Cook [place] inferior vena cava filter was advanced in the position deployed below the lowest renal vein. Completion venacavogram confirmed satisfactory position below the lowest renal vein with no significant tilt. The sheath was then drawn to manage pressure held until hemostasis was obtained. The patient was then returned to the intensive care unit.
[2023-08-18] MEDS: Aspirin 81 MG TAB.CHEW GT (10:22)
[2023-08-18] MEDS: Pantoprazole Sodium 40 MG in 0.9% Normal Saline (100mL MB+) 100 ML 330 MG IV (10:23)
[2023-08-18] MEDS: Cefepime HCl 0.5 GM in 0.9% Normal Saline (50mL Bag) 50 ML IV (10:23)
[2023-08-18] MEDS: CHLORHEXIDINE GLUC 2% CLOTH 1 EACH TOWELETTE TOPICAL (10:23)
[2023-08-18] MEDS: Chlorhexidine 15 ML PO ×2 (10:23→21:02)
[2023-08-18] MEDS: Metoprolol Tartrate 25 MG Tablet 12.5 MG GT (10:23)
[2023-08-18] MEDS: Insulin Glargine-YFGN 100 UNIT/ML Pen 20 UNIT SC (10:28)
[2023-08-18] MEDS: Vital AF 1.2 Cal Liquid 1,000 ML 60 ML GT (10:37)
[2023-08-18 11:28] LABS: CPK Total, Creatine Kinase 122 U/L (39-308); Triglycerides 163 mg/dL
--- NOTE | 2023-08-18 12:54 | PN.RENAL_ITS ---
Subjective Subjective No new complaints today. Remains on ventilator. FiO2 requirements better than yesterday. He is s/p IVC filter. Objective Data Objective Data Vital Signs: Vital Signs Temp Pulse Resp BP Pulse Ox O2 Del Method O2 Flow Rate 97.9 F 85 16 110/70 94 Mechanical Ventilator 60 08/18/23 09:00 08/18/23 11:11 08/18/23 11:11 08/18/23 10:23 08/18/23 11:11 08/18/23 09:16 08/15/23 07:00 FiO2 75 08/18/23 11:11 Oxygen Flow Rate (L/min) 60 Oxygen Delivery Method Mechanical Ventilator Weight: 85.7 kg Body Mass Index (BMI) 30.3 Intake & Output: Intake and Output for Last 24 Hours 08/16/23 08/17/23 08/18/23 23:59 23:59 23:59 Intake Total 2550.93 / 2671.03 2352.42 / 3193.52 1166.48 / 1166.48 Output Total 625 / 925 2004 200 / 200 Balance 1925.93 / 1746.03 347.42 / 1188.52 966.48 / 966.48 Lab / Micro Data 08/18/23 04:15 08/18/23 04:15 Labs: Laboratory Results - last 24 hr 08/11/23 15:14: Miscellaneous Cytology SEE PATHOLOGY REPORT 08/17/23 17:19: POC Glucose 209 H 08/18/23 00:23: POC Glucose 174 H 08/18/23 04:15: WBC 16.5 H, RBC 3.72 L, Hgb 9.6 L, Hct 32.5 L, MCV 87.4, MCH 25.8 L, MCHC 29.5 L, RDW Std Deviation 52.8 H, RDW Coeff of Raghavendra 17.9 H, Plt Count 264, MPV 13.0 H, Immature Gran % (Auto) 2.600 H, Neut % (Auto) 82.5 H, Lymph % (Auto) 5.3 L, [place] % (Auto) 7.3, Eos % (Auto) 2.1, Baso % (Auto) 0.2, Absolute Neuts (auto) 13.6 H, Absolute Lymphs (auto) 0.87, Nucleated RBC % 0, APTT 62.9 H, Sodium 136, Potassium 3.7, Chloride 102, Carbon Dioxide 24.0, Anion Gap 10, BUN 76 H, Creatinine 2.79 H, Estim Creat Clear Calc 24.70, Est GFR (MDRD) Af Amer 29 L, Est GFR (MDRD) Non-Af 24 L, BUN/Creatinine Ratio 27.2 H, Glucose 173 H, Calcium 8.0 L, Total Creatine Kinase 122, Triglycerides 163 08/18/23 05:13: POC Glucose 162 H Micro: Microbiology 08/17/23 09:15 Sputum, Induced/Lukens Gram Stain - Final 08/17/23 09:15 Sputum, Induced/Lukens Respiratory Culture - Preliminary Gram negative edd 08/17/23 09:00 Blood Culture (Wb) - Pic Blood Culture - Preliminary 08/11/23 15:14 Fluid - Pleural (Lung) Gram Stain - Final 08/11/23 15:14 Fluid - Pleural (Lung) Body Fluid Culture - Final Culture exhibits no growth. 08/11/23 15:14 Fluid - Pleural (Lung) Anaerobic Culture - Final No growth in 5 days. 08/12/23 12:29 Wash - Bronchial Gram Stain - Final 08/12/23 12:29 Wash - Bronchial Respiratory Culture - Final Stenotrophomonas maltophilia 08/11/23 09:59 Sputum, Induced/Lukens Gram Stain - Final 08/11/23 09:59 Sputum, Induced/Lukens Respiratory Culture - Final Stenotrophomonas maltophilia 08/12/23 10:49 Nasal Secretion SARS-CoV-2 Antigen (Rapid) - Final 08/04/23 00:00 Sputum, Expectorated/Coughed Gram Stain - Final 08/04/23 00:00 Sputum, Expectorated/Coughed Respiratory Culture - Final 08/03/23 21:57 Urine, Random Legionella Antigen - Final 08/03/23 21:57 Urine, Random Streptococcus pneumoniae Antigen (M - Final 08/03/23 18:30 Mucosa - Nose SARS-CoV-2, Influenza & RSV (PCR) - Final Physical Exam Narrative on vent support no obvious distress s1s2 no murmurs lungs clear anteriorly abdomen soft no edema indwelling de [place]on Const alert and oriented x3 General Appearance: well developed Orientation / Consciousness: oriented to person, oriented to place and oriented to time HEENT normocephalic Neck no lymphadenopathy Resp Auscultation: crackles right and left GI non-tender Auscultation: normoactive bowel sounds Neuro Sensorium / Orientation: awake and alert Psych cooperative Assessment & Plan Assessment/Plan (1) TRENA (acute kidney injury): PLAN: 72-year-old male with past medical history significant for 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 Terry (after surgery, his baseline creatinine has been around 2.0), presented to the emergency room on 08/02 with complaints of shortness of breath with exertion, admitted for non-STEMI, suspected pneumonia. - TRENA superimposed on CKD; baseline creatinine around 2.0. Acute renal failure was felt to be related to cardiorenal syndrome. Serology results: p-ANCA, c- ANCA, double-stranded DNA, glomerular basement membrane antibody, C3 all normal. C4 complement slightly elevated at 46. possibly TRENA from ischemic ATN. SCr 2 on admission and for few days SCr ranging around 2.4-2.6mg/dL even while on lasix gtt. 08/09 SCr 3.02 and lasix gtt stopped. Started on dialysis 08/12/2023. Dialysis planned for tomorrow. - Acute hypoxemic respiratory failure with unclear etiology--> sputum culture growing stenotropomonas. Found to have diffuse alveolar hemorrhage on bronchoscopy. Small segment PE on CT PE protocol. Hypoxia is likely due to a combination of all these factors. CT angiogram: No big thrombus seen, small pulmonary emboli, bilateral pleural effusions right greater than left with diffuse bilateral pulmonary infiltrates involving upper and lower lobes. S/p pleural tap, transudative. - NSTEMI, acute decompensated heart failure with preserved EF; cardiac cath 08/07. Cardiology following. Might need another intervention eventually. Dialysis planned for tomorrow (2) Chronic kidney disease, stage 3b:
--- NOTE | 2023-08-18 14:35 | CHAPLAIN ---
Type of Pastoral Visit ___ Initial Visit _x__ Follow-up Visit ___ On-call Visit ___ General Patient Visit ___ Spiritual Assessment ___ Family Conference ___ Bereavement ___ Rapid Response ___ Code Blue ___ Other (describe below) Pastoral Care Referral From ___ Patient _x__ Family ___ Nurse ___ Physician ___ Big Machine Consultant ___ Wellness Nurse Rn ___ Other (describe below) Sacrament/Intervention ___ Active listening ___ Anointing ___ Sabianist ___ Bereavement ___ Communion ___ [place] exploration ___ ___ Life review _x__ Prayer ___ Reconciliation ___ Sacrament of Sick ___ Supportive presence ___ Wedding _x__ Other (describe below) Pastoral Comments patient is sedated; no one else in room; prayer was given and a card left for family; later saw spouse in the hallway and offered support and spoke of the prayer given
--- NOTE | 2023-08-18 15:51 | PN.HOSP_ITS ---
Reason for Visit Reason for Visit: Exertional dyspnea Subjective Subjective Oxygen has been stable overnight however no weaning is able to take place. IVC filter was placed this morning. No issues otherwise. Blood cultures have popped positive. Objective Data Objective Data Vital Signs: Vital Signs Temp Pulse Resp BP Pulse Ox O2 Del Method O2 Flow Rate 97.9 F 82 18 84/56 L 96 Mechanical Ventilator 60 08/18/23 09:00 08/18/23 13:29 08/18/23 13:29 08/18/23 13:00 08/18/23 15:31 08/18/23 13:00 08/15/23 07:00 FiO2 70 08/18/23 13:29 Oxygen Flow Rate (L/min) 60 Oxygen Delivery Method Mechanical Ventilator Weight: 85.7 kg Body Mass Index (BMI) 30.3 Intake & Output: Intake and Output for Last 24 Hours 08/16/23 08/17/23 08/18/23 23:59 23:59 23:59 Intake Total 2550.93 / 2671.03 2352.42 / 3193.52 1292.60 / 1292.60 Output Total 625 / 925 2004 / 2004 200 / 200 Balance 1925.93 / 1746.03 347.42 / 1188.52 1092.60 / 1092.60 Lab / Micro Data 08/18/23 04:15 08/18/23 04:15 Labs: Laboratory Results - last 24 hr 08/11/23 15:14: Miscellaneous Cytology SEE PATHOLOGY REPORT 08/17/23 17:19: POC Glucose 209 H 08/18/23 00:23: POC Glucose 174 H 08/18/23 04:15: WBC 16.5 H, RBC 3.72 L, Hgb 9.6 L, Hct 32.5 L, MCV 87.4, MCH 25.8 L, MCHC 29.5 L, RDW Std Deviation 52.8 H, RDW Coeff of Raghavendra 17.9 H, Plt Count 264, MPV 13.0 H, Immature Gran % (Auto) 2.600 H, Neut % (Auto) 82.5 H, Lymph % (Auto) 5.3 L, [place] % (Auto) 7.3, Eos % (Auto) 2.1, Baso % (Auto) 0.2, Absolute Neuts (auto) 13.6 H, Absolute Lymphs (auto) 0.87, Nucleated RBC % 0, APTT 62.9 H, Sodium 136, Potassium 3.7, Chloride 102, Carbon Dioxide 24.0, Anion Gap 10, BUN 76 H, Creatinine 2.79 H, Estim Creat Clear Calc 24.70, Est GFR (MDRD) Af Amer 29 L, Est GFR (MDRD) Non-Af 24 L, BUN/Creatinine Ratio 27.2 H, Glucose 173 H, Calcium 8.0 L, Total Creatine Kinase 122, Triglycerides 163 08/18/23 05:13: POC Glucose 162 H Micro: Microbiology 08/17/23 09:15 Sputum, Induced/Lukens Gram Stain - Final 08/17/23 09:15 Sputum, Induced/Lukens Respiratory Culture - Preliminary Gram negative edd 08/17/23 09:00 Blood Culture (Wb) - Pic Blood Culture - Preliminary 08/11/23 15:14 Fluid - Pleural (Lung) Gram Stain - Final 08/11/23 15:14 Fluid - Pleural (Lung) Body Fluid Culture - Final Culture exhibits no growth. 08/11/23 15:14 Fluid - Pleural (Lung) Anaerobic Culture - Final No growth in 5 days. 08/12/23 12:29 Wash - Bronchial Gram Stain - Final 08/12/23 12:29 Wash - Bronchial Respiratory Culture - Final Stenotrophomonas maltophilia 08/11/23 09:59 Sputum, Induced/Lukens Gram Stain - Final 08/11/23 09:59 Sputum, Induced/Lukens Respiratory Culture - Final Stenotrophomonas maltophilia 08/12/23 10:49 Nasal Secretion SARS-CoV-2 Antigen (Rapid) - Final 08/04/23 00:00 Sputum, Expectorated/Coughed Gram Stain - Final 08/04/23 00:00 Sputum, Expectorated/Coughed Respiratory Culture - Final 08/03/23 21:57 Urine, Random Legionella Antigen - Final 08/03/23 21:57 Urine, Random Streptococcus pneumoniae Antigen (M - Final 08/03/23 18:30 Mucosa - Nose SARS-CoV-2, Influenza & RSV (PCR) - Final Physical Exam Const no apparent distress Constitutional Narrative: Older, overweight, white male, lying in bed intubated and sedated, HEENT normocephalic, head/scalp atraumatic and moist oral mucous membranes HEENT Narrative: ET tube and OG in place Neck Neck Narrative: Resp normal respiratory effort, no retractions and no use of accessory muscles Resp Narrative: Diminished at bases bilaterally, breath sounds remain coarse diffusely Auscultation: Negative for rales, rhonchi or wheezes Cardio regular rate, regular rhythm, S1 normal heart sound, S2 normal heart sound, no murmurs, no rub, no gallops and no clicks GI normal to inspection, nondistended, normoactive bowel sounds, soft to palpation and non-tender GI Narrative: Bowel sounds are good Extremity no clubbing, cyanosis or edema Extremity Narrative: Right upper extremity PICC in place-dressing is clean dry and intact Neuro Neuro Narrative: Intubated and sedated Psych Psych Narrative: Unable to assess as patient is intubated and sedated Mood & Affect: anxious Assessment & Plan Assessment/Plan (1) TRENA (acute kidney injury): (2) Chronic kidney disease, stage 3b: (3) Pneumonia: QUALIFIERS: Pneumonia type: due to unspecified organism (4) Acute hypoxic respiratory failure: PLAN: Plan Acute hypoxic respiratory failure-multifactorial(NSTEMI/pneumonia/pulmonary embolism/volume overload) -Intubated 08/11/2023 for worsening respiratory status--> day 7 -Remains on mechanical ventilation with worsening respiratory status has been weaned slightly to 80% but PEEP is still 8 -Intermittent bloody secretions the plan is to stop heparin drip after IVC is placed -Vascular surgery consulted for IVC placement -Chest x-ray appears to be consistent with ARDS -Sputum and blood cultures are both positive for a gram-negative rods which may be why his respiratory status has not been improving -Continue cefepime but discontinue vancomycin -Await sensitivities and identification -IVC filter in place today we will stop heparin drip -Continue Mucinex -As needed albuterol -Propofol for sedation/fentanyl for sedation--> sedation vacations and weaning trials as able -Tube feeds remain at goal -CCM/pulmonary medicine following-appreciate input Gram-negative bacteremia -Treatment with cefepime -Await identification and sensitivities and will narrow as able Leukocytosis -Now trending down -Cultures show gram-negative edd in blood and sputum -Continue cefepime we will discontinue vancomycin -UA was unremarkable Acute NSTEMI -Cardiac catheterization done on 08/08/2023 showed a normal left main, first diagonal with 90% long proximal stenosis, LAD with mild disease, nondominant lef t circumflex with first obtuse marginal branch noting 70% stenosis and a totally occluded RCA with [id number] collaterals -Medical therapy recommended -Continue metoprolol 12.5 mg p.o. daily with hold parameters -Continue statin 40 mg nightly -Continue baby aspirin 81 mg daily -Cardiology is following-appreciate input -Will need outpatient follow-up after discharge Mild hyponatremia -Sodium has fluctuated but remained stable at 135 today -likely related to volume status -Continue to monitor with dialysis Acute HFpEF secondary to NSTEMI -Continue dialysis as needed for fluid management TRENA on CKD stage IIIb -Continue dialysis per nephrology -Serologies are all unremarkable except C4 was slightly elevated at 46 -Current working diagnosis is TRENA secondary to ATN -Avoid nephrotoxins as able -Renally dose medications -Patient is making some urine but no signs of recovery as of yet -Nephrology is following Pulmonary embolus/right lower extremity DVT -Continue heparin drip and transition to Eliquis when appropriate Pleural effusion-transudative -Status post right thoracentesis for 1200 cc removal -Monitor clinically and with intermittent imaging for recurrent Stenotrophomonas pneumonia -Discontinue Levaquin and transition to vancomycin and cefepime Leukocytosis -Appears to be stable but slightly elevated in the mid 14 range Acute on chronic anemia -Baseline hemoglobin appears to run between 10 and 12 -Currently remained stable at 9.9 -Hemoglobin remained stable Hypertension -Patient on chlorthalidone and amlodipine at baseline -These medications are on hold -Continue metoprolol with hold parameters due to coronary disease -Continue to monitor blood pressure Invasive urothelial carcinoma -Status post transurethral resection of large bladder tumor and robotic assisted laparoscopic nephroureterectomy with bladder closure -done by Dr. Watts in February 2023 -Currently has solitary kidney -Ongoing outpatient follow-up -Acute cystitis ruled out DVT/GI prophylaxis -Heparin drip until IVC can be placed -IV PPI CODE STATUS -DNR CCA with short-term intubation Charges/Coding Visit Charges Inpatient E&M: 60274 Subs Hosp L2
[2023-08-18 17:45] LABS: Bedside Glucose 160 mg/dL (74-106)
[2023-08-18] MEDS: Insulin Lispro 100 UNIT/ML INSULN.PEN SC (17:48)
[2023-08-18] MEDS: Atorvastatin Calcium 40 MG Tablet GT (21:02)
[2023-08-19] VITALS (50 sets, daily range): BP systolic 97–198; BP diastolic 63–83; PULSE 87–122; RESP 16–28; TEMP 36.5–36.9; O2SAT 90–98; BMI 30.7; BMI 30.4
[2023-08-19] MEDS: Insulin Lispro 100 UNIT/ML INSULN.PEN SC ×4 (00:07→23:39)
[2023-08-19 00:26] LABS: Bedside Glucose 159 mg/dL (74-106)
[2023-08-19] MEDS: Vital AF 1.2 Cal Liquid 1,000 ML 60 ML GT ×2 (03:18→20:54)
[2023-08-19 03:44] LABS: Absolute Lymphocyte Count 0.73 X10^3/uL (0.83-4.51); Absolute Neutrophil Count 12.2 X10^3/uL (2.0-7.7); Basophil# 0.02 X10^3/uL; Basophil% 0.1 % (0-1); Eosinophil# 0.31 X10^3/uL; Eosinophils% 2.1 % (0-5); Hematocrit 31.4 % (40-54); Hemoglobin 9.3 g/dL (13.0-16.5); Lymphocyte # 0.73 X10^3/ul (0.83-4.51); Mean Corp Hgb Conc 29.6 g/dL (32-36); Mean Corpuscular Hgb 25.8 pg (27.0-32.0); Mean Platelet Vol. 13.3 fl (6.2-12.0); Monocyte# 1.03 X10^3/uL; NRBC Flagged by Analyzer 0 % (0-5); Neutrophil # 12.17 X10^3/uL (2.7-7.7); Neutrophil % 82.5 % (47-70); Platelet Count 243 K/mm3 (150-450); RBC Distribution Width SD 52.9 fl (35.1-43.9); Red Blood Count 3.61 M/mm3 (4.6-6.2); White Blood Count 14.7 K/mm3 (4.4-11.0)
[2023-08-19 04:08] LABS: Anion Gap 9 (5-15); BUN 95 mg/dL (7-18); BUN/Creat Ratio 28.6 RATIO (10-20); Calcium,Total 8.4 mg/dL (8.5-10.1); Chloride 100 mmol/L (98-107); Creatinine, Serum 3.32 mg/dL (0.70-1.30); EST Glomerular Filtration Rate 20 mL/min (>60); Est Glom Filt Rate - Afr Amer 24 mL/min (>60); Estimated Creatinine Clearance 20.94 ml/min; Glucose 184 mg/dL (74-106); Potassium 3.8 mmol/L (3.5-5.1); Sodium Level 134 mmol/L (136-145)
[2023-08-19 04:22] LABS: Partial Thromboplast Time 29.1 Seconds (24.1-36.2)
[2023-08-19] MEDS: Menthol/Lanolin/Calamine/Znox 113 GM Tube 1 APPLIC TOPICAL ×3 (05:09→21:26)
[2023-08-19 06:13] LABS: Bedside Glucose 180 mg/dL (74-106)
--- NOTE | 2023-08-19 06:38 | PCM.PN.INT ---
Assessment & Plan Assessment/Plan (1) Acute hypoxic respiratory failure: (2) Pleural effusion, right: (3) TRENA (acute kidney injury): PLAN: Plan RECOMMENDATIONS: 1. Continue assist-control mode mechanical ventilation. Wean FiO2 and PEEP for saturations greater than 90%. 2. Continue antimicrobials, while awaiting finalized culture results. 3. Continue tube feeding as tolerated. 4. Continue appropriate GI prophylaxis. 5. Continue with daily paired spontaneous awakening and breathing trials. IMPRESSIONS: 1. Acute hypoxemic respiratory failure Initially, the patient's respiratory decompensation was felt to be a consequence of decompensated heart failure with preserved ejection fraction in the setting of an NSTEMI. However, underlying infection related to stenotrophomonas seems more likely. Subsequent attempts at volume optimization led to no significant improvement in his respiratory status. The patient was also diagnosed with a right lower extremity DVT and small nonocclusive right lower lobe PE. He was subsequently initiated on a weight-based heparin infusion. Ultimately, the patient continued to decompensate from a respiratory perspective and required intubation. Upon intubation, the patient was noted to have a significant amount of bleeding from his endotracheal tube, raising the suspicion for diffuse alveolar hemorrhage. Nevertheless, subsequent bronchoscopy was not consistent with DAH. The patient underwent thoracentesis as well from the right hemithorax which appeared to be transudative in nature. Cardiac catheterization has already been completed, for which medical therapy was recommended. The patient continues to have a tenuous respiratory status on the ventilator, requiring high FiO2, and continues to experience frequent bloody secretions/clots. Over concerns that the ongoing bloody secretions could be contributing to his persistent high oxygenation requirement, an IVC filter was placed on August 17 in order to facilitate discontinuation of the weight-based heparin infusion. Lastly, repeat blood cultures collected on August 16 were positive for gram-negative rods, for which the patient remains on antimicrobials. Plan to continue to wean FiO2 and PEEP to maintain saturations at or above 90%. Continue attempts at daily spontaneous awakening and breathing trials. 2. NSTEMI/acute decompensated heart failure with preserved ejection fraction Management per cardiology. 3. Acute on chronic kidney disease Nephrology is following. The patient's worsening renal insufficiency is likely multifactorial and related to prerenal etiology coupled with possible contrast nephropathy from recent catheterization and CTA chest. Continue ongoing dialysis support per nephrology recommendations. TIME: 32 minutes, independent of procedures, was spent addressing the patient's acute hypoxemic respiratory failure, NSTEMI, acute decompensated heart failure with preserved ejection fraction, stenotrophomonas pneumonia, acute on chronic kidney disease, review of all data and collaboration with care team. Subjective Subjective The patient was seen and examined at the bedside this morning. Events from the last 24 hours have been reviewed. The patient is currently afebrile, hemodynamically stable and maintaining appropriate oxygen saturations on assist-control mode mechanical ventilation with an FiO2 requirement of 50% and PEEP of 8. Nursing staff believes that the bloody endotracheal tube secretions are slowly improving. The patient is currently documented to be overall net +2 L for the hospitalization. White blood cell count remains elevated at 15,000. Objective Data Objective Data The patient's most recent lab work, culture data and imaging studies have all been personally reviewed. Surface echocardiogram demonstrated normal LV size and function with an ejection fraction of 55%. Doppler study was positive for right-sided DVT. Sputum culture was positive for stenotrophomonas. Preliminary blood culture dated August 16 was positive for gram-negative rods. Vital Signs: Vital Signs Temp Pulse Resp BP Pulse Ox O2 Del Method O2 Flow Rate 97.7 F L 122 H 16 123/74 H 90 Mechanical Ventilator 60 08/19/23 05:00 08/19/23 06:00 08/19/23 06:00 08/19/23 06:00 08/19/23 06:00 08/19/23 06:00 08/15/23 07:00 FiO2 50 08/19/23 06:00 Oxygen Flow Rate (L/min) 60 Oxygen Delivery Method Mechanical Ventilator Weight: 190 lb 7.67 oz Body Mass Index (BMI) 30.7 Intake & Output: Intake and Output for Last 24 Hours 08/17/23 08/18/23 08/19/23 23:59 23:59 23:59 Intake Total 2352.42 / 3193.52 1514.40 / 1533.50 1273.24 / 1273.24 Output Total 2004 450 / 650 325 / 325 Balance 347.42 / 1188.52 1064.40 / 883.50 948.24 / 948.24 Lab / Micro Data Attestation: I reviewed the patient's lab results. 08/19/23 03:30 08/19/23 03:30 Labs: Laboratory Results - last 24 hr 08/18/23 04:15: Total Creatine Kinase 122, Triglycerides 163 08/18/23 16:42: POC Glucose 160 H 08/19/23 00:04: POC Glucose 159 H 08/19/23 03:30: WBC 14.7 H, RBC 3.61 L, Hgb 9.3 L, Hct 31.4 L, MCV 87.0, MCH 25.8 L, MCHC 29.6 L, RDW Std Deviation 52.9 H, RDW Coeff of Raghavendra 18.0 H, Plt Count 243, MPV 13.3 H, Immature Gran % (Auto) 3.300 H, Neut % (Auto) 82.5 H, Lymph % (Auto) 5.0 L, [place] % (Auto) 7.0, Eos % (Auto) 2.1, Baso % (Auto) 0.1, Absolute Neuts (auto) 12.2 H, Absolute Lymphs (auto) 0.73 L, Nucleated RBC % 0, APTT 29.1, Sodium 134 L, Potassium 3.8, Chloride 100, Carbon Dioxide 25.0, Anion Gap 9, BUN 95 H, Creatinine 3.32 H, Estim Creat Clear Calc 20.94, Est GFR (MDRD) Af Amer 24 L, Est GFR (MDRD) Non-Af 20 L, BUN/Creatinine Ratio 28.6 H, Glucose 184 H, Calcium 8.4 L 08/19/23 05:06: POC Glucose 180 H Micro: Microbiology 08/17/23 09:15 Sputum, Induced/Lukens Gram Stain - Final 08/17/23 09:15 Sputum, Induced/Lukens Respiratory Culture - Preliminary Gram negative edd 08/17/23 09:00 Blood Culture (Wb) - Pic Blood Culture - Preliminary 08/11/23 15:14 Fluid - Pleural (Lung) Gram Stain - Final 08/11/23 15:14 Fluid - Pleural (Lung) Body Fluid Culture - Final Culture exhibits no growth. 08/11/23 15:14 Fluid - Pleural (Lung) Anaerobic Culture - Final No growth in 5 days. 08/12/23 12:29 Wash - Bronchial Gram Stain - Final 08/12/23 12:29 Wash - Bronchial Respiratory Culture - Final Stenotrophomonas maltophilia 08/11/23 09:59 Sputum, Induced/Lukens Gram Stain - Final 08/11/23 09:59 Sputum, Induced/Lukens Respiratory Culture - Final Stenotrophomonas maltophilia 08/12/23 10:49 Nasal Secretion SARS-CoV-2 Antigen (Rapid) - Final 08/04/23 00:00 Sputum, Expectorated/Coughed Gram Stain - Final 08/04/23 00:00 Sputum, Expectorated/Coughed Respiratory Culture - Final 08/03/23 21:57 Urine, Random Legionella Antigen - Final 08/03/23 21:57 Urine, Random Streptococcus pneumoniae Antigen (M - Final 08/03/23 18:30 Mucosa - Nose SARS-CoV-2, Influenza & RSV (PCR) - Final ABG Data ABG results: ABG 08/11/23 10:13 Specimen Type ART Sample Site L Radial pH 7.47 H Bicarbonate Actual 36.1 H Total CO2 38 Base Excess 13 H O2 Saturation 99 O2 % 50.0 ABG pCO2 49.8 H ABG pO2 132 H Abhijit Test Positive Respiration Rate 14 O2 Delivery Device Adult Vent Vent Mode AC Tidal Volume 500.0 POC PEEP 10 Radiography Diagnostic Testing: Radiology Impression Chest X-Ray 08/16/23 06:26 IMPRESSION: Stable exam. Electronically Signed: Mehdi Ernandez MD at 8:26 EDT , Physical Exam Const alert Constitutional Narrative: Intubated, sedated and mechanically ventilated. No ventilator dyssynchrony noted. HEENT normocephalic and head/scalp atraumatic Mouth: endotracheal tube in place and OG tube in place Eyes PERRL, EOMs intact bilaterally and conjunctivae normal Neck supple General: trachea midline Chest inspection of chest normal Resp Resp Narrative: Coarse mechanical breath sounds. Auscultation: diminished lung sounds; Negative for rales, rhonchi or wheezes Cardio regular rate, regular rhythm, S1 normal heart sound and S2 normal heart sound GI normal to inspection, nondistended, normoactive bowel sounds Extremity no clubbing, cyanosis or edema Skin no rashes or lesions noted Neuro Neuro Narrative: Alert and able to follow simple commands. Sensorium / Orientation: sedated on vent Charges/Coding Procedures Hospitalists Procedures: 18344 Critical Care 1st Hr
[2023-08-19] MEDS: PureFlow B 3K Dialysis Soln 1 BAG 6 BAG PF (07:07)
[2023-08-19] MEDS: 0.9% Normal Saline 1,000 ML IV.SOLN. 1000 ML OPERA.SITE (07:07)
--- NOTE | 2023-08-19 08:13 | PN.HOSP_ITS ---
Reason for Visit Reason for Visit: Worsening shortness of breath Subjective Subjective No issues overnight. Patient has been able to wean to 50% FiO2 with a PEEP of 8. Suctioning seems to be less bloody. Patient is awake and trying to interact some on the ventilator today however when asking questions pertaining to any issues he shakes his head no. He is moving both of his upper extremities trying to point in different directions but we are unable to ascertain what he is trying to tell us. Objective Data Objective Data Vital Signs: Vital Signs Temp Pulse Resp BP Pulse Ox O2 Del Method O2 Flow Rate 98.5 F 105 H 18 118/75 94 Bi-pap 60 08/19/23 06:46 08/19/23 08:06 08/19/23 08:06 08/19/23 08:06 08/19/23 08:06 08/19/23 08:06 08/15/23 07:00 FiO2 50 08/19/23 08:06 Oxygen Flow Rate (L/min) 60 Oxygen Delivery Method Bi-pap Weight: 86.4 kg Body Mass Index (BMI) 30.7 Intake & Output: Intake and Output for Last 24 Hours 08/17/23 08/18/23 08/19/23 23:59 23:59 23:59 Intake Total 2352.42 / 3193.52 1514.40 / 1533.50 1280.80 / 1280.80 Output Total 2004 450 / 650 325 / 325 Balance 347.42 / 1188.52 1064.40 / 883.50 955.80 / 955.80 Lab / Micro Data 08/19/23 03:30 08/19/23 03:30 Labs: Laboratory Results - last 24 hr 08/18/23 04:15: Total Creatine Kinase 122, Triglycerides 163 08/18/23 16:42: POC Glucose 160 H 08/19/23 00:04: POC Glucose 159 H 08/19/23 03:30: WBC 14.7 H, RBC 3.61 L, Hgb 9.3 L, Hct 31.4 L, MCV 87.0, MCH 25.8 L, MCHC 29.6 L, RDW Std Deviation 52.9 H, RDW Coeff of Raghavendra 18.0 H, Plt Count 243, MPV 13.3 H, Immature Gran % (Auto) 3.300 H, Neut % (Auto) 82.5 H, Lymph % (Auto) 5.0 L, [place] % (Auto) 7.0, Eos % (Auto) 2.1, Baso % (Auto) 0.1, Absolute Neuts (auto) 12.2 H, Absolute Lymphs (auto) 0.73 L, Nucleated RBC % 0, APTT 29.1, Sodium 134 L, Potassium 3.8, Chloride 100, Carbon Dioxide 25.0, Anion Gap 9, BUN 95 H, Creatinine 3.32 H, Estim Creat Clear Calc 20.94, Est GFR (MDRD) Af Amer 24 L, Est GFR (MDRD) Non-Af 20 L, BUN/Creatinine Ratio 28.6 H, Glucose 184 H, Calcium 8.4 L 08/19/23 05:06: POC Glucose 180 H Micro: Microbiology 08/17/23 09:15 Sputum, Induced/Lukens Gram Stain - Final 08/17/23 09:15 Sputum, Induced/Lukens Respiratory Culture - Final Stenotrophomonas maltophilia 08/17/23 09:00 Blood Culture (Wb) - Pic Blood Culture - Preliminary 08/11/23 15:14 Fluid - Pleural (Lung) Gram Stain - Final 08/11/23 15:14 Fluid - Pleural (Lung) Body Fluid Culture - Final Culture exhibits no growth. 08/11/23 15:14 Fluid - Pleural (Lung) Anaerobic Culture - Final No growth in 5 days. 08/12/23 12:29 Wash - Bronchial Gram Stain - Final 08/12/23 12:29 Wash - Bronchial Respiratory Culture - Final Stenotrophomonas maltophilia 08/11/23 09:59 Sputum, Induced/Lukens Gram Stain - Final 08/11/23 09:59 Sputum, Induced/Lukens Respiratory Culture - Final Stenotrophomonas maltophilia 08/12/23 10:49 Nasal Secretion SARS-CoV-2 Antigen (Rapid) - Final 08/04/23 00:00 Sputum, Expectorated/Coughed Gram Stain - Final 08/04/23 00:00 Sputum, Expectorated/Coughed Respiratory Culture - Final 08/03/23 21:57 Urine, Random Legionella Antigen - Final 08/03/23 21:57 Urine, Random Streptococcus pneumoniae Antigen (M - Final 08/03/23 18:30 Mucosa - Nose SARS-CoV-2, Influenza & RSV (PCR) - Final Physical Exam Const no apparent distress Constitutional Narrative: Older, overweight, white male, lying in bed intubated and sedated, patient did open his eyes while I was in the room and started moving both of his arms trying to point HEENT normocephalic, head/scalp atraumatic and moist oral mucous membranes HEENT Narrative: ET tube and OG in place Neck Neck Narrative: Resp normal respiratory effort, no retractions and no use of accessory muscles Resp Narrative: Diminished at bases bilaterally, breath sounds remain coarse diffusely but seems to be improving the last 24 hours Auscultation: Negative for rales, rhonchi or wheezes Cardio regular rate, regular rhythm, S1 normal heart sound, S2 normal heart sound, no murmurs, no rub, no gallops and no clicks GI normal to inspection, nondistended, normoactive bowel sounds, soft to palpation and non-tender GI Narrative: Bowel sounds are good Extremity no clubbing, cyanosis or edema Extremity Narrative: Right upper extremity PICC in place-dressing is clean dry and intact Skin Skin Narrative: No rashes or abnormal lesions noted General Skin Exam: no breakdown Neuro oriented x3, CN's II-XII intact bilaterally, moves all extremities, no focal motor deficits and no sensory deficits noted Neuro Narrative: Intubated and sedated Sensorium / Orientation: awake, alert, oriented to person, oriented to place and oriented to time Speech: speech normal Psych affect normal Psych Narrative: Unable to assess as patient is intubated and sedated Mood & Affect: anxious Assessment & Plan Assessment/Plan (1) TRENA (acute kidney injury): (2) Chronic kidney disease, stage 3b: (3) Pneumonia: QUALIFIERS: Pneumonia type: due to unspecified organism (4) Acute hypoxic respiratory failure: PLAN: Plan Acute hypoxic respiratory failure-multifactorial(NSTEMI/pneumonia/pulmonary embolism/volume overload) -Intubated 08/11/2023 for worsening respiratory status--> day 7 -Remains on mechanical ventilation with worsening respiratory status has been weaned slightly to 80% but PEEP is still 8 -Intermittent bloody secretions the plan is to stop heparin drip after IVC is placed -Vascular surgery consulted for IVC placement -Chest x-ray appears to be consistent with ARDS -Sputum and blood cultures are both positive for a gram-negative rods which may be why his respiratory status has not been improving -Continue cefepime but discontinue vancomycin -Await sensitivities and identification -IVC filter in place today we will stop heparin drip -Continue Mucinex -As needed albuterol -Propofol for sedation/fentanyl for sedation--> sedation vacations and weaning trials as able -Tube feeds remain at goal -[facility]/pulmonary medicine following-appreciate input Gram-negative bacteremia -Treatment with cefepime -Await identification and sensitivities and will narrow as able Leukocytosis -Now trending down -Cultures show gram-negative edd in blood and sputum -Continue cefepime we will discontinue vancomycin -UA was unremarkable Acute NSTEMI -Cardiac catheterization done on 08/08/2023 showed a normal left main, first diagonal with 90% long proximal stenosis, LAD with mild disease, nondominant left circumflex with first obtuse marginal branch noting 70% stenosis and a totally occluded RCA with [id number] collaterals -Medical therapy recommended -Continue metoprolol 12.5 mg p.o. daily with hold parameters -Continue statin 40 mg nightly -Continue baby aspirin 81 mg daily -Cardiology is following-appreciate input -Will need outpatient follow-up after discharge Mild hyponatremia -resolved Acute HFpEF secondary to NSTEMI -Continue dialysis as needed for fluid management TRENA on CKD stage IIIb -Continue dialysis per nephrology -Serologies are all unremarkable except C4 was slightly elevated at 46 -Current working diagnosis is TRENA secondary to ATN -Avoid nephrotoxins as able -Renally dose medications -Patient is making some urine but no signs of recovery as of yet -Nephrology is following Pulmonary embolus/right lower extremity DVT -Continue heparin drip and transition to Eliquis when appropriate Pleural effusion-transudative -Status post right thoracentesis for 1200 cc removal -Monitor clinically and with intermittent imaging for recurrent Stenotrophomonas pneumonia -abx completed for this Acute on chronic anemia -Baseline hemoglobin appears to run between 10 and 12 -Currently remained stable at 9.6 -Hemoglobin remained stable Hypertension -Patient on chlorthalidone and amlodipine at baseline -These medications are on hold -Continue metoprolol with hold parameters due to coronary disease -Continue to monitor blood pressure Invasive urothelial carcinoma -Status post transurethral resection of large bladder tumor and robotic assisted laparoscopic nephroureterectomy with bladder closure -done by Dr. Watts in February 2023 -Currently has solitary kidney -Ongoing outpatient follow-up -Acute cystitis ruled out DVT/GI prophylaxis -IVC -cont IV PPI CODE STATUS -DNR CCA with short-term intubation Charges/Coding Visit Charges Inpatient E&M: 12216 Subs Hosp L2
[2023-08-19] MEDS: 0.9% Saline Lock 10 ML Syringe IV (09:34)
[2023-08-19] MEDS: Heparin 10,000 UNITS/10 ML Vial IV (09:35)
[2023-08-19] MEDS: Propofol 10MG/Ml 1,000 MG/100 ML Bottle 10.1 MG CONT INF ×3 (10:36→19:54)
[2023-08-19] MEDS: Insulin Glargine-YFGN 100 UNIT/ML Pen 20 UNIT SC (10:37)
[2023-08-19] MEDS: CHLORHEXIDINE GLUC 2% CLOTH 1 EACH TOWELETTE TOPICAL (10:37)
[2023-08-19] MEDS: Aspirin 81 MG TAB.CHEW GT (10:37)
[2023-08-19] MEDS: Metoprolol Tartrate 25 MG Tablet 12.5 MG GT ×2 (10:38→21:25)
[2023-08-19] MEDS: Pantoprazole Sodium 40 MG in 0.9% Normal Saline (100mL MB+) 100 ML 330 MG IV (10:42)
[2023-08-19] MEDS: Cefepime HCl 0.5 GM in 0.9% Normal Saline (50mL Bag) 50 ML IV (11:38)
[2023-08-19] MEDS: Chlorhexidine 15 ML PO ×2 (11:38→22:30)
[2023-08-19 13:51] LABS: Bedside Glucose 148 mg/dL (74-106)
--- NOTE | 2023-08-19 13:55 | PCM.PN.REN ---
Subjective Subjective No new events. Repeat sputum culture is positive for stenotrophomonas. Blood culture is growing gram-negative rods. Chest x-ray looks about the same. 50% FiO2 and PEEP of 8. Minimal fluid removal. He also makes urine. Objective Data Objective Data Vital Signs: Vital Signs Temp Pulse Resp BP Pulse Ox O2 Del Method O2 Flow Rate 97.8 F 104 H 23 H 97/71 90 Mechanical Ventilator 60 08/19/23 11:00 08/19/23 13:22 08/19/23 13:22 08/19/23 12:00 08/19/23 13:22 08/19/23 12:00 08/15/23 07:00 FiO2 50 08/19/23 13:22 Oxygen Flow Rate (L/min) 60 Oxygen Delivery Method Mechanical Ventilator Weight: 86 kg Body Mass Index (BMI) 30.4 Intake & Output: Intake and Output for Last 24 Hours 08/17/23 08/18/23 08/19/23 23:59 23:59 23:59 Intake Total 2352.42 / 3193.52 1514.40 / 1533.50 1477.16 / 1477.16 Output Total 2004 450 / 650 1425 / 1425 Balance 347.42 / 1188.52 1064.40 / 883.50 52.16 / 52.16 Lab / Micro Data 08/19/23 03:30 08/19/23 03:30 Labs: Laboratory Results - last 24 hr 08/18/23 16:42: POC Glucose 160 H 08/19/23 00:04: POC Glucose 159 H 08/19/23 03:30: WBC 14.7 H, RBC 3.61 L, Hgb 9.3 L, Hct 31.4 L, MCV 87.0, MCH 25.8 L, MCHC 29.6 L, RDW Std Deviation 52.9 H, RDW Coeff of Raghavendra 18.0 H, Plt Count 243, MPV 13.3 H, Immature Gran % (Auto) 3.300 H, Neut % (Auto) 82.5 H, Lymph % (Auto) 5.0 L, [place] % (Auto) 7.0, Eos % (Auto) 2.1, Baso % (Auto) 0.1, Absolute Neuts (auto) 12.2 H, Absolute Lymphs (auto) 0.73 L, Nucleated RBC % 0, APTT 29.1, Sodium 134 L, Potassium 3.8, Chloride 100, Carbon Dioxide 25.0, Anion Gap 9, BUN 95 H, Creatinine 3.32 H, Estim Creat Clear Calc 20.94, Est GFR (MDRD) Af Amer 24 L, Est GFR (MDRD) Non-Af 20 L, BUN/Creatinine Ratio 28.6 H, Glucose 184 H, Calcium 8.4 L 08/19/23 05:06: POC Glucose 180 H 08/19/23 13:01: POC Glucose 148 H Micro: Microbiology 08/17/23 09:00 Blood Culture (Wb) - Right Wrist Blood Culture - Preliminary No growth in 48 hours. 08/17/23 09:00 Blood Culture (Wb) - Pic Blood Culture - Preliminary Gram negative edd 08/17/23 09:15 Sputum, Induced/Lukens Gram Stain - Final 08/17/23 09:15 Sputum, Induced/Lukens Respiratory Culture - Final Stenotrophomonas maltophilia 08/11/23 15:14 Fluid - Pleural (Lung) Gram Stain - Final 08/11/23 15:14 Fluid - Pleural (Lung) Body Fluid Culture - Final Culture exhibits no growth. 08/11/23 15:14 Fluid - Pleural (Lung) Anaerobic Culture - Final No growth in 5 days. 08/12/23 12:29 Wash - Bronchial Gram Stain - Final 08/12/23 12:29 Wash - Bronchial Respiratory Culture - Final Stenotrophomonas maltophilia 08/11/23 09:59 Sputum, Induced/Lukens Gram Stain - Final 08/11/23 09:59 Sputum, Induced/Lukens Respiratory Culture - Final Stenotrophomonas maltophilia 08/12/23 10:49 Nasal Secretion SARS-CoV-2 Antigen (Rapid) - Final 08/04/23 00:00 Sputum, Expectorated/Coughed Gram Stain - Final 08/04/23 00:00 Sputum, Expectorated/Coughed Respiratory Culture - Final 08/03/23 21:57 Urine, Random Legionella Antigen - Final 08/03/23 21:57 Urine, Random Streptococcus pneumoniae Antigen (M - Final 08/03/23 18:30 Mucosa - Nose SARS-CoV-2, Influenza & RSV (PCR) - Final Physical Exam Narrative on vent support no obvious distress s1s2 no murmurs lungs clear anteriorly abdomen soft no edema indwelling de leon Const alert and oriented x3 General Appearance: well developed Orientation / Consciousness: oriented to person, oriented to place and oriented to time HEENT normocephalic Neck no lymphadenopathy Resp Auscultation: crackles right and left GI non-tender Auscultation: normoactive bowel sounds Neuro Sensorium / Orientation: awake and alert Psych cooperative Assessment & Plan Assessment/Plan (1) TRENA (acute kidney injury): PLAN: 72-year-old male with past medical history significant for 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 Terry (after surgery, his baseline creatinine has been around 2.0), presented to the emergency room on 08/02 with complaints of shortness of breath with exertion, admitted for non-STEMI, suspected pneumonia. - TRENA superimposed on CKD; baseline creatinine around 2.0. Acute renal failure was felt to be related to cardiorenal syndrome. Serology results: p-ANCA, c-ANCA, double-stranded DNA, glomerular basement membrane antibody, C3 all normal. C4 complement slightly elevated at 46. possibly TRENA from ischemic ATN. SCr 2 on admission and for few days SCr ranging around 2.4-2.6mg/dL even while on lasix gtt. 08/09 SCr 3.02 and lasix gtt stopped. Started on dialysis 08/12/2023. Currently he is on dialysis Tuesday, Tuesday, Tuesday schedule. Dialysis today. - Acute hypoxemic respiratory failure--> sputum culture growing stenotropomonas. Found to have diffuse alveolar hemorrhage on bronchoscopy. Small segment PE on CT PE protocol. Hypoxia is likely due to a combination of all these factors. S/p IVC filter. Repeat sputum culture positive for stenotrophomonas. Blood culture is growing gram-negative rods. Currently on cefepime. ID consult placed. CT angiogram: No big thrombus seen, small pulmonary emboli, bilateral pleural effusions right greater than left with diffuse bilateral pulmonary infiltrates involving upper and lower lobes. S/p pleural tap, transudative. - NSTEMI, acute decompensated heart failure with preserved EF; cardiac cath 08/07. Cardiology following. Might need another intervention eventually. Dialysis today. We will maintain Tuesday, Tuesday, Tuesday schedule. (2) Chronic kidney disease, stage 3b:
--- NOTE | 2023-08-19 14:04 | PCM.CONS.GEN ---
Assessment & Plan Assessment/Plan (1) Bacteremia due to Gram-negative bacteria: PLAN: Spoke with micro lab, GNR in Bcx may also be stenotrophomonas. Sputum steno now R to bactrim and levaquin. Spoke with pharmacy, will order iv ceftazidime and po minocycline. Lab has sent out for additional susceptibility testing. Plan on stopping cefepime once ceftaz is available. Will follow, thank you, d/w Dr. Munoz (2) Pulmonary embolus, right: (3) Acute hypoxic respiratory failure: (4) TRENA (acute kidney injury): (5) Chronic kidney disease, stage 3b: (6) Pneumonia: QUALIFIERS: Pneumonia type: due to unspecified organism HPI Consult Data Date of Consult: 08/19/23 HPI Narrative Reason for Consultation: bacteremia HPI Narrative: DINH SIN, is a 72 M with CKD, admitted 08/03/23 from ED after 2 days progressive dyspnea. Found to have elevated trop and BNP. Admitted to icu. Started on hep gtt, see by cardiology, started iv lasix for CHF. Had worsening sats and leukocytosis. 08/05, started azithro/ceftriaxone 08/05. Heart cath done 08/08. CTA 08/09 showed PE, doppler showed RLE dvt. Bronch done 08/11 and pt intubated 08/10. Sputum showed steno, abx changed to levaquin 08/12. Started on HD. Thoracentesis done. Ongoing bleeding issues, had IVC filter placed 08/17. Cxs repeated with rising bcx, now with steno again in sputum and GNR in bcx. at bedside. ROS unobtainable due to mental status. [facility] Medical History Bladder disease Cancer Former smoker Prostate disease Wears glasses Home Medications amlodipine 5 mg tablet 5 mg PO DAILY BP 01/26/23 [History Last Taken 08/03/23] chlorthalidone 25 mg tablet 25 mg PO DAILY BP 01/26/23 [History Last Taken 08/03/23] Allergy/AdvReac Type Severity Reaction Status Date / Time No Known Allergies Allergy Verified 08/03/23 13:48 Surgical History History of cataract extraction with lens replacement (~2015) History of hernia repair (~1975) History of surgery of head (~1991) History of toe surgery History of transurethral resection of bladder tumor (TURBT) Social History Smoking Status: Former smoker Physical Exam Const no apparent distress HEENT normocephalic and head/scalp atraumatic Eyes PERRL Neck supple and No nodes Resp Effort and Inspection: mechanically ventilated Auscultation: diminished lung sounds Cardio regular rate and regular rhythm GI soft to palpation, non-tender and non-distended Extremity General Extremity: Negative for edema Skin no rashes or lesions noted Neuro CN's II-XII intact bilaterally Lab / Micro Data Attestation: I reviewed the patient's lab results. 08/19/23 03:30 08/19/23 03:30 Labs: Laboratory Results - last 24 hr 08/18/23 16:42: POC Glucose 160 H 08/19/23 00:04: POC Glucose 159 H 08/19/23 03:30: WBC 14.7 H, RBC 3.61 L, Hgb 9.3 L, Hct 31.4 L, MCV 87.0, MCH 25.8 L, MCHC 29.6 L, RDW Std Deviation 52.9 H, RDW Coeff of Raghavendra 18.0 H, Plt Count 243, MPV 13.3 H, Immature Gran % (Auto) 3.300 H, Neut % (Auto) 82.5 H, Lymph % (Auto) 5.0 L, [place] % (Auto) 7.0, Eos % (Auto) 2.1, Baso % (Auto) 0.1, Absolute Neuts (auto) 12.2 H, Absolute Lymphs (auto) 0.73 L, Nucleated RBC % 0, APTT 29.1, Sodium 134 L, Potassium 3.8, Chloride 100, Carbon Dioxide 25.0, Anion Gap 9, BUN 95 H, Creatinine 3.32 H, Estim Creat Clear Calc 20.94, Est GFR (MDRD) Af Amer 24 L, Est GFR (MDRD) Non-Af 20 L, BUN/Creatinine Ratio 28.6 H, Glucose 184 H, Calcium 8.4 L 08/19/23 05:06: POC Glucose 180 H 08/19/23 13:01: POC Glucose 148 H Micro: Microbiology 08/17/23 09:00 Blood Culture (Wb) - Right Wrist Blood Culture - Preliminary No growth in 48 hours. 08/17/23 09:00 Blood Culture (Wb) - Pic Blood Culture - Preliminary Gram negative edd 08/17/23 09:15 Sputum, Induced/Lukens Gram Stain - Final 08/17/23 09:15 Sputum, Induced/Lukens Respiratory Culture - Final Stenotrophomonas maltophilia
[2023-08-19] MEDS: Albuterol 2.5 MG/3 ML VIAL.NEB. INHALATION ×2 (14:10→18:55)
--- NOTE | 2023-08-19 14:46 | PCM.PN.SRG ---
Subjective Subjective Patient was alert though drowsy on exam this afternoon. He had just received another dose of sedative as he had recently been standing with PT and nursing. He reportedly did well with that. His repeat sputum cultures showed now resistant steno. ID is adjusting antibiotics, hoping to order in ceftazidime and minocycline. Fortunately, he has been able to wean to 50% FiO2 with a PEEP of 8. Blood secretions are reportedly less since stopping heparin following IVC filter placement. No report of any concerns at the R groin access site. Objective Data Objective Data Vital Signs: Vital Signs Temp Pulse Resp BP Pulse Ox O2 Del Method O2 Flow Rate 97.8 F 95 23 H 100/72 94 Mechanical Ventilator 60 08/19/23 11:00 08/19/23 14:14 08/19/23 14:14 08/19/23 14:00 08/19/23 14:00 08/19/23 14:00 08/15/23 07:00 FiO2 50 08/19/23 14:00 Oxygen Flow Rate (L/min) 60 Oxygen Delivery Method Mechanical Ventilator Weight: 189 lb 9.561 oz Body Mass Index (BMI) 30.4 Intake & Output: Intake and Output for Last 24 Hours 08/17/23 08/18/23 08/19/23 23:59 23:59 23:59 Intake Total 2352.42 / 3193.52 1514.40 / 1533.50 1497.16 / 1497.16 Output Total 2004 450 / 650 1425 / 1425 Balance 347.42 / 1188.52 1064.40 / 883.50 72.16 / 72.16 Lab / Micro Data 08/19/23 03:30 08/19/23 03:30 Labs: Laboratory Results - last 24 hr 08/18/23 16:42: POC Glucose 160 H 08/19/23 00:04: POC Glucose 159 H 08/19/23 03:30: WBC 14.7 H, RBC 3.61 L, Hgb 9.3 L, Hct 31.4 L, MCV 87.0, MCH 25.8 L, MCHC 29.6 L, RDW Std Deviation 52.9 H, RDW Coeff of Raghavendra 18.0 H, Plt Count 243, MPV 13.3 H, Immature Gran % (Auto) 3.300 H, Neut % (Auto) 82.5 H, Lymph % (Auto) 5.0 L, [place] % (Auto) 7.0, Eos % (Auto) 2.1, Baso % (Auto) 0.1, Absolute Neuts (auto) 12.2 H, Absolute Lymphs (auto) 0.73 L, Nucleated RBC % 0, APTT 29.1, Sodium 134 L, Potassium 3.8, Chloride 100, Carbon Dioxide 25.0, Anion Gap 9, BUN 95 H, Creatinine 3.32 H, Estim Creat Clear Calc 20.94, Est GFR (MDRD) Af Amer 24 L, Est GFR (MDRD) Non-Af 20 L, BUN/Creatinine Ratio 28.6 H, Glucose 184 H, Calcium 8.4 L 08/19/23 05:06: POC Glucose 180 H 08/19/23 13:01: POC Glucose 148 H Micro: Microbiology 08/17/23 09:00 Blood Culture (Wb) - Right Wrist Blood Culture - Preliminary No growth in 48 hours. 08/17/23 09:00 Blood Culture (Wb) - Pic Blood Culture - Preliminary Gram negative edd 08/17/23 09:15 Sputum, Induced/Lukens Gram Stain - Final 08/17/23 09:15 Sputum, Induced/Lukens Respiratory Culture - Final Stenotrophomonas maltophilia 08/11/23 15:14 Fluid - Pleural (Lung) Gram Stain - Final 08/11/23 15:14 Fluid - Pleural (Lung) Body Fluid Culture - Final Culture exhibits no growth. 08/11/23 15:14 Fluid - Pleural (Lung) Anaerobic Culture - Final No growth in 5 days. 08/12/23 12:29 Wash - Bronchial Gram Stain - Final 08/12/23 12:29 Wash - Bronchial Respiratory Culture - Final Stenotrophomonas maltophilia 08/11/23 09:59 Sputum, Induced/Lukens Gram Stain - Final 08/11/23 09:59 Sputum, Induced/Lukens Respiratory Culture - Final Stenotrophomonas maltophilia 08/12/23 10:49 Nasal Secretion SARS-CoV-2 Antigen (Rapid) - Final 08/04/23 00:00 Sputum, Expectorated/Coughed Gram Stain - Final 08/04/23 00:00 Sputum, Expectorated/Coughed Respiratory Culture - Final 08/03/23 21:57 Urine, Random Legionella Antigen - Final 08/03/23 21:57 Urine, Random Streptococcus pneumoniae Antigen (M - Final 08/03/23 18:30 Mucosa - Nose SARS-CoV-2, Influenza & RSV (PCR) - Final Physical Exam Const Constitutional Narrative: He remains intubated and mechanically ventilated. He was alert but drowsy on my exam, opening his eyes for a bit before they would drift closed. Resp Resp Narrative: mechanically ventilated, no retractions/accessory muscle use Cardio regular rate and regular rhythm Extremity Extremity Narrative: R groin access site with pressure dressing overlying C/D/I. No bleed-through noted. There is no significant focal swelling, ecchymosis, or erythema. Assessment & Plan Assessment/Plan (1) DVT (deep venous thrombosis): (2) Pulmonary embolus, right: PLAN: Plan Patient is s/p IVC filter placement on 08/18/23. The procedure was without complication and he tolerated it well. Access site is satisfactory in appearance today without evidence of bleeding/hematoma. The pressure dressing may be removed tomorrow. Will plan to have the patient follow-up on an outpatient basis when able, he may be a candidate for filter retrieval in the future.
[2023-08-19] MEDS: [UNRECOGNIZED DRUG - OTHER] PO ×2 (16:31→21:25)
[2023-08-19] MEDS: MINOCYCLINE HCL PO ×2 (16:31→21:25)
[2023-08-19] MEDS: fentaNYL drip 100 ML 5 MCG CONT INF (16:35)
[2023-08-19 18:45] LABS: Bedside Glucose 180 mg/dL (74-106)
[2023-08-19] MEDS: Atorvastatin Calcium 40 MG Tablet GT (21:25)
[2023-08-19 23:58] LABS: Bedside Glucose 174 mg/dL (74-106)
[2023-08-20] VITALS (36 sets, daily range): BP systolic 98–126; BP diastolic 63–79; PULSE 91–120; RESP 16–30; TEMP 36.4–37.2; O2SAT 88–96; BMI 30.9
[2023-08-20] MEDS: Menthol/Lanolin/Calamine/Znox 113 GM Tube 1 APPLIC TOPICAL ×3 (04:52→20:56)
[2023-08-20] MEDS: 0.9% Saline Lock 10 ML Syringe IV (04:56)
[2023-08-20] MEDS: Insulin Lispro 100 UNIT/ML INSULN.PEN SC ×3 (05:01→17:14)
[2023-08-20] MEDS: Propofol 10MG/Ml 1,000 MG/100 ML Bottle 10.1 MG CONT INF (05:04)
[2023-08-20 05:13] LABS: Absolute Lymphocyte Count 0.65 X10^3/uL (0.83-4.51); Absolute Neutrophil Count 10.7 X10^3/uL (2.0-7.7); Basophil# 0.01 X10^3/uL; Basophil% 0.1 % (0-1); Eosinophil# 0.22 X10^3/uL; Eosinophils% 1.7 % (0-5); Hematocrit 29.4 % (40-54); Lymphocyte # 0.65 X10^3/ul (0.83-4.51); Lymphocyte % 5.2 % (19-41); Mean Corp Hgb Conc 30.6 g/dL (32-36); Mean Corpuscular Hgb 25.9 pg (27.0-32.0); Mean Corpuscular Volume 84.7 fL (80-94); Mean Platelet Vol. 12.9 fl (6.2-12.0); Monocyte# 0.82 X10^3/uL; Monocyte% 6.5 % (0-10); NRBC Flagged by Analyzer 0 % (0-5); Neutrophil # 10.65 X10^3/uL (2.7-7.7); Neutrophil % 84.7 % (47-70); Platelet Count 223 K/mm3 (150-450); RBC Distribution Width CV 18.6 % (11.6-14.6); RBC Distribution Width SD 53.9 fl (35.1-43.9); Red Blood Count 3.47 M/mm3 (4.6-6.2); White Blood Count 12.6 K/mm3 (4.4-11.0)
[2023-08-20 05:25] LABS: Bedside Glucose 166 mg/dL (74-106)
[2023-08-20 05:27] LABS: Anion Gap 9 (5-15); BUN 88 mg/dL (7-18); BUN/Creat Ratio 31.8 RATIO (10-20); Calcium,Total 8.3 mg/dL (8.5-10.1); Chloride 102 mmol/L (98-107); Creatinine, Serum 2.77 mg/dL (0.70-1.30); EST Glomerular Filtration Rate 24 mL/min (>60); Est Glom Filt Rate - Afr Amer 29 mL/min (>60); Estimated Creatinine Clearance 25.35 ml/min; Glucose 193 mg/dL (74-106); Potassium 3.6 mmol/L (3.5-5.1); Sodium Level 136 mmol/L (136-145)
[2023-08-20] MEDS: TITRATION PARAMETER CHANGE 1 EACH IV (06:22)
[2023-08-20] MEDS: Albuterol 2.5 MG/3 ML VIAL.NEB. INHALATION ×3 (07:06→19:01)
--- NOTE | 2023-08-20 07:57 | PN.HOSP_ITS ---
Reason for Visit Reason for Visit: Worsening shortness of breath Subjective Subjective No issues overnight. Oxygen has been weaned to 45% with a PEEP of 8. Patient is spontaneously moving all extremities. Not awake during my exam today. Sputum remains blood-tinged. RASS is -1. Objective Data Objective Data Vital Signs: Vital Signs Temp Pulse Resp BP Pulse Ox O2 Del Method O2 Flow Rate 98 F 99 22 H 119/75 92 Mechanical Ventilator 60 08/19/23 20:00 08/20/23 07:09 08/20/23 07:09 08/20/23 07:00 08/20/23 07:07 08/20/23 07:00 08/15/23 07:00 FiO2 45 08/20/23 07:07 Oxygen Flow Rate (L/min) 60 Oxygen Delivery Method Mechanical Ventilator Weight: 87.5 kg Body Mass Index (BMI) 30.9 Intake & Output: Intake and Output for Last 24 Hours 08/18/23 08/19/23 08/20/23 23:59 23:59 23:59 Intake Total 1514.40 / 1533.50 2645.48 / 2660.58 120.80 / 120.80 Output Total 450 / 650 1600 / 1600 275 / 275 Balance 1064.40 / 883.50 1045.48 / 1060.58 -154.20 / -154.20 Lab / Micro Data 08/20/23 05:00 08/20/23 05:00 Labs: Laboratory Results - last 24 hr 08/19/23 13:01: POC Glucose 148 H 08/19/23 18:27: POC Glucose 180 H 08/19/23 23:38: POC Glucose 174 H 08/20/23 05:00: WBC 12.6 H, RBC 3.47 L, Hgb 9.0 L, Hct 29.4 L, MCV 84.7, MCH 25.9 L, MCHC 30.6 L, RDW Std Deviation 53.9 H, RDW Coeff of Raghavendra 18.6 H, Plt Count 223, MPV 12.9 H, Immature Gran % (Auto) 1.800 H, Neut % (Auto) 84.7 H, Lymph % (Auto) 5.2 L, [place] % (Auto) 6.5, Eos % (Auto) 1.7, Baso % (Auto) 0.1, Absolute Neuts (auto) 10.7 H, Absolute Lymphs (auto) 0.65 L, Nucleated RBC % 0, Sodium 136, Potassium 3.6, Chloride 102, Carbon Dioxide 25.0, Anion Gap 9, BUN 88 H, Creatinine 2.77 H, Estim Creat Clear Calc 25.35, Est GFR (MDRD) Af Amer 29 L, Est GFR (MDRD) Non-Af 24 L, BUN/Creatinine Ratio 31.8 H, Glucose 193 H, Calcium 8.3 L 08/20/23 05:01: POC Glucose 166 H Micro: Microbiology 08/17/23 09:00 Blood Culture (Wb) - Pic Blood Culture - Preliminary Stenotrophomonas maltophilia 08/17/23 09:15 Sputum, Induced/Lukens Gram Stain - Final 08/17/23 09:15 Sputum, Induced/Lukens Respiratory Culture - Preliminary Stenotrophomonas maltophilia 08/17/23 09:00 Blood Culture (Wb) - Right Wrist Blood Culture - Preliminary No growth in 48 hours. 08/11/23 15:14 Fluid - Pleural (Lung) Gram Stain - Final 08/11/23 15:14 Fluid - Pleural (Lung) Body Fluid Culture - Final Culture exhibits no growth. 08/11/23 15:14 Fluid - Pleural (Lung) Anaerobic Culture - Final No growth in 5 days. 08/12/23 12:29 Wash - Bronchial Gram Stain - Final 08/12/23 12:29 Wash - Bronchial Respiratory Culture - Final Stenotrophomonas maltophilia 08/11/23 09:59 Sputum, Induced/Lukens Gram Stain - Final 08/11/23 09:59 Sputum, Induced/Lukens Respiratory Culture - Final Stenotrophomonas maltophilia 08/12/23 10:49 Nasal Secretion SARS-CoV-2 Antigen (Rapid) - Final 08/04/23 00:00 Sputum, Expectorated/Coughed Gram Stain - Final 08/04/23 00:00 Sputum, Expectorated/Coughed Respiratory Culture - Final 08/03/23 21:57 Urine, Random Legionella Antigen - Final 08/03/23 21:57 Urine, Random Streptococcus pneumoniae Antigen (M - Final 08/03/23 18:30 Mucosa - Nose SARS-CoV-2, Influenza & RSV (PCR) - Final Physical Exam Narrative Const alert, oriented x3, no apparent distress and healthy appearing Constitutional Narrative: Older, overweight, white male, lying in bed intubated and sedated, appears comfortable at test time, does not appear toxic, does intermittently move all extremities HEENT normocephalic, head/scalp atraumatic and moist oral mucous membranes HEENT Narrative: ET tube and OG in place Neck Neck Narrative: Resp normal respiratory effort, no retractions, no use of accessory muscles and clear to auscultation bilaterally Resp Narrative: Diminished but clear Auscultation: Negative for rales, rhonchi or wheezes Cardio regular rate, regular rhythm, S1 normal heart sound, S2 normal heart sound, no murmurs, no rub, no gallops and no clicks GI normal to inspection, nondistended, normoactive bowel sounds, soft to palpation and non-tender Extremity no clubbing, cyanosis or edema Extremity Narrative: Right upper extremity PICC in place-dressing is clean dry and intact Neuro moves all extremities Neuro Narrative: Will intermittently spontaneously move all 4 extremities Psych Psych Narrative: Intubated and sedated Mood & Affect: anxious Assessment & Plan Assessment/Plan (1) TRENA (acute kidney injury): (2) Chronic kidney disease, stage 3b: (3) Pneumonia: QUALIFIERS: Pneumonia type: due to unspecified organism (4) Acute hypoxic respiratory failure: PLAN: Plan Acute hypoxic respiratory failure-multifactorial(NSTEMI/pneumonia/pulmonary embolism/volume overload) -Intubated 08/11/2023 for worsening respiratory status--> day 9 -Remains on mechanical ventilation and FiO2 has been weaned to 45% with PEEP at 8--> sats currently at 93% on the settings -IVC filter now in place and heparin drip discontinued -Chest x-ray appears to be consistent with ARDS -Starting ceftazidime and minocycline today based on repeat cultures of stenotrophomonas being resistant to Levaquin and Bactrim -Stop cefepime once these medications are up and running -Continue Mucinex -As needed albuterol -Propofol for sedation/fentanyl for sedation--> sedation vacations and weaning trials as able -Tube feeds remain at goal -CCM/pulmonary medicine following-appreciate input Stenotrophomonas pneumonia and bacteremia -Had stenotrophomonas that was sensitive to Levaquin on both his initial sputum and bronc -Was transitioned to Levaquin but clinically worsens a repeat cultures were obtained -Culture now is resistant to both Bactrim and Levaquin--> to start ceftazidime and minocycline today -Continue cefepime until we have these medications available -Blood cultures are also showing stenotrophomonas -Infectious diseases following-appreciate input Leukocytosis -Interestingly, his white count is trending down nicely with the cefepime despite the sensitivities for the stenotrophomonas -Sputum and blood positive for stenotrophomonas resistant to Levaquin and Bactrim -UA was unremarkable Acute NSTEMI -Cardiac catheterization done on 08/08/2023 showed a normal left main, first diagonal with 90% long proximal stenosis, LAD with mild disease, nondominant left circumflex with first obtuse marginal branch noting 70% stenosis and a totally occluded RCA with [id number] collaterals -Medical therapy recommended -Continue metoprolol 12.5 mg twice daily -Patient's heart rate and blood pressure tolerated the increase yesterday well -Continue statin 40 mg nightly -Continue baby aspirin 81 mg daily -Cardiology is following-appreciate input -Will need outpatient follow-up after discharge Mild hyponatremia -Fluctuates with volume status related to dialysis Acute HFpEF secondary to NSTEMI -Continue dialysis as needed for fluid management TRENA on CKD stage IIIb -Continue dialysis per nephrology -Serologies are all unremarkable except C4 was slightly elevated at 46 -Current working diagnosis is TRENA secondary to ATN -Avoid nephrotoxins as able -Renally dose medications -Still no signs of meaningful renal recovery -On dialysis currently -Nephrology is following Pulmonary embolus/right lower extremity DVT -IVC filter placed on 08/18/[address] Estrella Pleural effusion-transudative -Status post right thoracentesis for 1200 cc removal -Monitor clinically and with intermittent imaging for recurrent Acute on chronic anemia -Baseline hemoglobin appears to run between 10 and 12 -Slight downward trend over the last several days and is currently 9.0 -May need further workup if this continues to trend down -Will order stool guaiac now -Hemoglobin remained stable Hypertension -Patient on chlorthalidone and amlodipine at baseline -These medications are on hold -Continue metoprolol with hold parameters due to coronary disease -Continue to monitor blood pressure Invasive urothelial carcinoma -Status post transurethral resection of large bladder tumor and robotic assisted laparoscopic nephroureterectomy with bladder closure -done by Dr. Watts in February 2023 -Currently has solitary kidney -Ongoing outpatient follow-up -Acute cystitis ruled out DVT/GI prophylaxis -IVC filter in place -Continue SCDs -cont IV PPI CODE STATUS -DNR CCA with short-term intubation Charges/Coding Visit Charges Inpatient E&M: 53759 Subs Hosp L2
[2023-08-20] MEDS: Metoprolol Tartrate 25 MG Tablet 12.5 MG GT ×2 (08:07→21:01)
[2023-08-20] MEDS: Chlorhexidine 15 ML PO ×2 (08:07→20:58)
[2023-08-20] MEDS: Aspirin 81 MG TAB.CHEW GT (08:08)
[2023-08-20] MEDS: Pantoprazole Sodium 40 MG in 0.9% Normal Saline (100mL MB+) 100 ML 330 MG IV ×2 (08:08→21:00)
[2023-08-20] MEDS: MINOCYCLINE HCL PO ×2 (08:08→20:59)
[2023-08-20] MEDS: [UNRECOGNIZED DRUG - OTHER] PO ×2 (08:08→20:59)
[2023-08-20] MEDS: CHLORHEXIDINE GLUC 2% CLOTH 1 EACH TOWELETTE TOPICAL (08:09)
--- NOTE | 2023-08-20 09:48 | PN.CC_ITS ---
Objective Data Objective Data Vital Signs: Vital Signs Last response Temperature 36.6 C 08/20/23 08:00 Temperature Source Temporal 08/20/23 08:00 Pulse Rate 108 H 08/20/23 09:40 Pulse Strength Normal (2+) 08/17/23 09:59 Respiratory Rate 23 H 08/20/23 09:40 Respiratory Effort Mechanically Ventilated 08/20/23 08:00 Respiratory Depth Normal 08/20/23 08:00 Respiratory Pattern Normal 08/20/23 08:00 Blood Pressure 126/75 H 08/20/23 09:00 Blood Pressure Mean 92 08/20/23 09:00 Blood Pressure Source Monitor 08/20/23 09:00 Blood Pressure Position Semi-Fowlers 08/20/23 09:00 Blood Pressure Location Left Arm 08/20/23 09:00 Pulse Ox 88 08/20/23 09:40 Oxygen Delivery Method Mechanical Ventilator 08/20/23 09:00 Oxygen Flow Rate (L/min) 60 08/15/23 07:00 Fraction of Inspired Oxygen (FIO2) 45 08/20/23 09:40 I&O: I&O Last 24 Hours 08/19/23 08/19/23 08/20/23 11:59 23:59 11:59 Intake Total 1317.16 / 2660.58 1328.32 / 2660.58 331.69 / 331.69 Output Total 1175 / 1600 425 / 1600 275 / 275 Balance 142.16 / 1060.58 903.32 / 1060.58 56.69 / 56.69 I&O: Total Stay 08/03/23 13:43 thru 08/20/23 09:45 Intake Total 26986.63 Output Total 06453 Balance 2192.63 Current Meds Ordered / Administered: Current meds ordered / Administered Generic Name Dose Route Start Last Admin Trade Name Freq PRN Reason Stop Dose Admin Acetaminophen 650 mg 08/12/23 03:35 Acetaminophen 650 Mg/20 Ml Udc GT Q6H PRN PRN Pain 1-10 Or Fever >100.7 Albuterol Sulfate 2.5 mg 08/03/23 17:36 08/20/23 07:06 Albuterol 2.5 Mg/3 Ml Vial.Neb. INHALATION 2.5 mg Q2H PRN PRN Administration SHORTNESS OF BREATH Aspirin 81 mg 08/12/23 08:00 08/20/23 08:08 Aspirin 81 Mg Tab.Chew GT 81 mg BREAKFAST REY Administration Atorvastatin Calcium 40 mg 08/12/23 22:00 08/19/23 21:25 Atorvastatin Calcium 40 Mg Tablet GT 40 mg QHS REY Administration Calamine/Phenol 1 applic 08/13/23 22:00 08/20/23 04:52 Menthol/Lanolin/Calamine/Znox 113 Gm Tube TOPICAL 1 applic TID REY Administration Protocol Chlorhexidine Gluconate 1 each 08/11/23 10:00 08/20/23 08:09 Chlorhexidine Gluc 2% Cloth 1 Each Towelette TOPICAL 1 each DAILY REY Administration Chlorhexidine Gluconate 15 ml 08/11/23 22:00 08/20/23 08:07 Chlorhexidine 15 Ml PO 15 ml BID REY Administration Minocycline HCl 2,000 mg/ 0 mg 08/19/23 16:30 08/20/23 08:08 Compound Med 200 ml PO 20 ml Q12 REY Administration Dextrose 0 gm 08/16/23 09:22 Dextrose 50%-Water 25 Gm/50 Ml Disp.Syrin IV X1 PRN Hypoglycemia Protocol Glucagon 1 mg 08/16/23 09:22 Glucagon 1 Mg/Ml Syringe IM X1 PRN Hypoglycemia Sodium Chloride 250 mls @ 15 mls/hr 08/04/23 23:09 08/08/23 02:14 IV Infused .[id number] PRN Infusion Additional IVPB Infusion Sodium Chloride 250 mls @ 15 mls/hr 08/04/23 23:09 IV .[id number] PRN Saline Flush Propofol 1,000 mg in 100 mls @ 5.25 mls/hr 08/11/23 07:55 08/20/23 09:45 Diprivan CONT INF 20 mcg/kg/min .Q12H REY 10.5 mls/hr Titration Protocol 10 MCG/KG/MIN Fentanyl 100 mls @ 5 mls/hr 08/11/23 07:55 08/20/23 09:30 CONT INF 50 mcg/hr UD REY 5 mls/hr Titration Protocol 50 MCG/HR Pantoprazole Sodium 40 mg/ 110 mls @ 330 mls/hr 08/11/23 10:00 08/20/23 08:32 Sodium Chloride IV Infused Q24 REY Infusion Enteral Nutritional Formula 1,000 mls @ 60 mls/hr 08/12/23 17:15 08/20/23 03:03 Vital Af 1.2 Kam Liquid GT Not Given .[id number] [facility] cefTAZidime 1 gm/ Sodium 60 mls @ 120 mls/hr 08/20/23 14:00 Chloride IV DAILY [facility] Insulin Glargine 26 unit 08/20/23 10:00 Insulin Glargine-Yfgn 100 Unit/Ml Pen SC DAILY [facility] Insulin Human Lispro 0 unit 08/16/23 12:00 08/20/23 05:01 Insulin Lispro 100 Unit/Ml Insuln.Pen SC 1 u Q6 [facility] Administration Protocol Metoprolol Tartrate 12.5 mg 08/19/23 10:00 08/20/23 08:07 Metoprolol Tartrate 25 Mg Tablet GT 12.5 mg BID [facility] Administration Protocol Morphine Sulfate 2 - 4 mg 08/03/23 17:36 08/05/23 11:44 Morphine 2 Mg/Ml Syringe IV 4 mg Q3H PRN PRN Administration Pain Score 6-10 Ondansetron HCl 4 mg 08/03/23 17:36 08/17/23 01:35 Ondansetron 4 Mg/2 Ml Vial IV 4 mg Q8H PRN PRN Administration NAUSEA/VOMITING Sodium Chloride 10 - 40 ml 08/03/23 17:59 08/20/23 04:56 0.9% Saline Lock 10 Ml Syringe IV 30 ml UD PRN Administration SALINE FLUSH Lab / Micro Data 08/20/23 05:00 08/20/23 05:00 Labs: Laboratory Results - last 24 hr 08/19/23 13:01: POC Glucose 148 H 08/19/23 18:27: POC Glucose 180 H 08/19/23 23:38: POC Glucose 174 H 08/20/23 05:00: WBC 12.6 H, RBC 3.47 L, Hgb 9.0 L, Hct 29.4 L, MCV 84.7, MCH 25.9 L, MCHC 30.6 L, RDW Std Deviation 53.9 H, RDW Coeff of Raghavendra 18.6 H, Plt Count 223, MPV 12.9 H, Immature Gran % (Auto) 1.800 H, Neut % (Auto) 84.7 H, Lymph % (Auto) 5.2 L, [place] % (Auto) 6.5, Eos % (Auto) 1.7, Baso % (Auto) 0.1, Absolute Neuts (auto) 10.7 H, Absolute Lymphs (auto) 0.65 L, Nucleated RBC % 0, Sodium 136, Potassium 3.6, Chloride 102, Carbon Dioxide 25.0, Anion Gap 9, BUN 88 H, Creatinine 2.77 H, Estim Creat Clear Calc 25.35, Est GFR (MDRD) Af Amer 29 L, Est GFR (MDRD) Non-Af 24 L, BUN/Creatinine Ratio 31.8 H, Glucose 193 H, Calcium 8.3 L 08/20/23 05:01: POC Glucose 166 H Micro: Microbiology 08/17/23 09:00 Blood Culture (Wb) - Pic Blood Culture - Preliminary Stenotrophomonas maltophilia 08/17/23 09:15 Sputum, Induced/Lukens Gram Stain - Final 08/17/23 09:15 Sputum, Induced/Lukens Respiratory Culture - Preliminary Stenotrophomonas maltophilia 08/17/23 09:00 Blood Culture (Wb) - Right Wrist Blood Culture - Preliminary No growth in 48 hours. Assessment and Plan . Assessment and plan: Critical Care Time: The entirety of this encounter was done via Telemedicine Subjective Subjective Brief summary: 72-year-old male, with a history as outlined below, who presented to the emergency department on August 02 with progressive exertional dyspnea. The patient has no pre-existing lung conditions. He stated that he does not utilize supplemental oxygen at his baseline. He has never been diagnosed with obstructive sleep apnea. The patient denied a history of VTE. The patient does have chronic kidney disease and follows with an outpatient diesel engine operator. On presentation to the emergency department, the patient was documented to be afebrile hemodynamically stable. He was initially documented to be saturating in the mid 90s on room air. Laboratory evaluation revealed a normal white blood cell count. Chemistry profile was notable for a sodium of 134, potassium of 2.7, chloride of 96 and creatinine of 2.02. Troponin was elevated at 13,391 with a BNP of 1259. Chest imaging demonstrated patchy bilateral infiltrates. Strep and urine Legionella antigens were negative. COVID, influenza and RSV PCR's were negative. Sputum culture was collected. The patient was subsequently admitted to the medical intensive care unit for further management. The patient was ultimately evaluated by cardiology over concerns for an NSTEMI. He was placed on a heparin infusion and echocardiogram was obtained. That study demonstrated normal LV size and function with an ejection fraction of 55%. Diastolic function was unable to be assessed. RVSP was unable to be estimated. This morning, the patient was initiated on a Lasix infusion. Sub: Pt seen and examined. Intubated, sedated. ETT secretions remain notable- leonarda brown, but not overtly bloody. Awake/alert during sedation vacation but after short time became hypoxemic & tachycardic. Makes good urine. Afebrile. Prop @ 20 Fent @ 75 16 500 8 60 PE: General: Well developed, intubated HEENT: anicteric Sclera; + ETT, nl nose; supple neck, no masses Cardiovascular: Regular Rate and Rhythm; No murmurs, rubs, gallops; no displaced PMI Respiratory: diminished; no crackles, wheezes, or rhonchi Abdominal: Non-tender; Non distended; hypoBS x 4; No Hepatosplenomegaly Extremities: Warm, well perfused; No clubbing, cyanosis; capillary refill < 2 sec Neurological: sedated but awake & follows commands appropriately A/P: #Acute hypoxemic respiratory failure: multifactorial in the setting of decompensated CHF, PNA, PE on hep gtt cb by bloody secretions with suspected al veolar hemorrahge; intubated 08/11, bronch 08/11 nondiagnostic for DAH --> cont MV; settings reviewed/adjusted; SAT/SBT as indicated/tolerated but at this time limited by desaturation/tachycardia; may be good candidate for trach/PEG early next week #PNA: diffucult to treat; emp ceftriax/azithro started 08/05, sputum with Stenotrophomonas and Abx adjusted to levofloxacin; again with rising WBCs and Cx still with steno now R to levaquin/Bactrim; also GNR BCx --> ID consulted, cont Abx- ceftaz/minocycyline, F/U repeat Cx #Bacteremia: see above #NSTEMI: sp emp hep gtt; sp LHC 08/08; med management recommended per cardiology #HFpEF, acute exacerbation: cont diuresis as tolerated #TRENA on CKD: transitioned to HD support; nephrology on board and managing #DVT/PE: LE US positive for acute thrombss in Rt peroneal vein; CTA 08/09 showed PE; unable to tolerate hep gtt due to hemoptysis and sp IVC filter 08/17 #Rt pleural effusion: sp thora with results c/w transudative process, cont monitoring TF SCDs Guarded prognosis CCT: 50 min The entirety of the encounter was completed via telemedicine.
--- NOTE | 2023-08-20 11:23 | RAD_ITS ---
STUDY: X-RAY CHEST REASON FOR EXAM: Male, 72 years old. Respiratory failure TECHNIQUE: Single AP portable view of the chest. COMPARISON: August 16, 2023 FINDINGS: Endotracheal tube, 5 cm above the zack. NG tube extends to the stomach in the left upper quadrant. PICC on the right extends to the superior vena cava. Central catheter sheath on the right extends to the superior vena cava. There are monitoring and support devices. There are moderate mid and lower lung airspace opacities, similar to prior exams. There is no demonstrated pleural abnormality. Normal size heart. Normal mediastinum and salazar. Normal visualized pulmonary arteries. Normal visualized aortic arch and descending thoracic aorta. Normal visualized thoracic spine. Normal visualized ribs, clavicles, and shoulders. There is no demonstrated abnormality of the visualized soft tissue structures of the upper abdomen. RAD/Chest 1 View (Portable) IMPRESSION: Bilateral edema or pneumonia. Electronically Signed: Jimenez Alonso MD at 14:04 EDT ,
[2023-08-20] MEDS: Insulin Glargine-YFGN 100 UNIT/ML Pen 26 UNIT SC (11:35)
[2023-08-20 11:51] LABS: Allen Test Positive; Base Excess -4 mmol/L (-2 to +2); Bicarbonate 20.8 mmol/L (22-26); Blood Gas Specimen Type ART; Mode AC/VC; O2 Delivery Device Adult Vent; PEEP 8; PO2 69 mmHG (75-100); RR 16; SITE L Radial; SO2 94 % (95-99); Total Carbon Dioxide 22 mmol/L; pCO2 33.3 mmHg (35-45)
[2023-08-20 11:55] LABS: Bedside Glucose 175 mg/dL (74-106)
[2023-08-20] MEDS: fentaNYL drip 100 ML 7.5 MCG CONT INF (11:55)
[2023-08-20] MEDS: Propofol 10MG/Ml 1,000 MG/100 ML Bottle 10.5 MG CONT INF ×2 (11:55→20:56)
[2023-08-20] MEDS: CEFTAZIDIME IV (13:58)
[2023-08-20] MEDS: NORMAL SALINE 0.9% IV (13:58)
--- NOTE | 2023-08-20 14:45 | EX.PCM.CON.G ---
HPI Consult Data Date of Consult: 08/20/23 HPI Narrative Reason for Consultation: Anemia, fecal occult positive stools and need for PEG tube HPI Narrative: DINH SIN, is a Patient is a 72-year-old with chronic renal failure gentleman admitted with shortness of breath was found to have elevated troponin consistent with acute non-STEMI treatment initiated per protocol admitted to the intensive care unit. Patient was found to be in acute respiratory failure resulting in the use of BiPAP. He failed BiPAP and had to get intubated and has been intubated for several days. He was discovered to have segmental PEs and lower extremity DVT. He was started on anticoagulation but developed bleeding from the endotracheal tube. There was suspicion for diffuse alveolar hemorrhage so anticoagulation was stopped. He underwent bronchoscopy and it was inconclusive for diffuse ovular hemorrhage. He did undergo a temporary IVC filter placement by Dr. Estrella. He has been intubated and sedated for several days and will likely need a PEG tube and tracheostomy. He has a baseline anemia of chronic disease likely secondary from chronic renal failure. While here in the hospital he was discovered to be fecal occult positive. Patient is intubated and sedated at this time. FORMERLY [facility] Medical History Bladder disease Cancer Former smoker Prostate disease Wears glasses Home Medications amlodipine 5 mg tablet 5 mg PO DAILY BP 01/26/23 [History Last Taken 08/03/23] chlorthalidone 25 mg tablet 25 mg PO DAILY BP 01/26/23 [History Last Taken 08/03/23] Allergy/AdvReac Type Severity Reaction Status Date / Time No Known Allergies Allergy Verified 08/03/23 13:48 Surgical History History of cataract extraction with lens replacement (~2015) History of hernia repair (~1975) History of surgery of head (~1991) History of toe surgery History of transurethral resection of bladder tumor (TURBT) Social History Smoking Status: Former smoker ROS ROS Narrative Negative except above Physical Exam Narrative Const alert, oriented x3, no apparent distress and healthy appearing Constitutional Narrative: Intubated and sedated HEENT normocephalic, head/scalp atraumatic and moist oral mucous membranes HEENT Narrative: ET tube and OG in place Neck Neck Narrative: Resp normal respiratory effort, no retractions, no use of accessory muscles and clear to auscultation bilaterally Resp Narrative: Diminished but clear Auscultation: Negative for rales, rhonchi or wheezes Cardio regular rate, regular rhythm, S1 normal heart sound, S2 normal heart sound, no murmurs, no rub, no gallops and no clicks GI normal to inspection, nondistended, normoactive bowel sounds, soft to palpation and non-tender Extremity no clubbing, cyanosis or edema Extremity Narrative: Right upper extremity PICC in place-dressing is clean dry and intact Neuro moves all extremities Neuro Narrative: Will intermittently spontaneously move all 4 extremities Psych Psych Narrative: Intubated and sedated Mood & Affect: anxious Lab / Micro Data 08/20/23 05:00 08/20/23 05:00 Labs: Laboratory Results - last 24 hr 08/19/23 18:27: POC Glucose 180 H 08/19/23 23:38: POC Glucose 174 H 08/20/23 05:00: WBC 12.6 H, RBC 3.47 L, Hgb 9.0 L, Hct 29.4 L, MCV 84.7, MCH 25.9 L, MCHC 30.6 L, RDW Std Deviation 53.9 H, RDW Coeff of Raghavendra 18.6 H, Plt Count 223, MPV 12.9 H, Immature Gran % (Auto) 1.800 H, Neut % (Auto) 84.7 H, Lymph % (Auto) 5.2 L, [place] % (Auto) 6.5, Eos % (Auto) 1.7, Baso % (Auto) 0.1, Absolute Neuts (auto) 10.7 H, Absolute Lymphs (auto) 0.65 L, Nucleated RBC % 0, Sodium 136, Potassium 3.6, Chloride 102, Carbon Dioxide 25.0, Anion Gap 9, BUN 88 H, Creatinine 2.77 H, Estim Creat Clear Calc 25.35, Est GFR (MDRD) Af Amer 29 L, Est GFR (MDRD) Non-Af 24 L, BUN/Creatinine Ratio 31.8 H, Glucose 193 H, Calcium 8.3 L 08/20/23 05:01: POC Glucose 166 H 08/20/23 11:34: POC Glucose 175 H Micro: Microbiology 08/12/23 12:29 Wash - Right Middle Lobe Virus Culture - Final 08/20/23 10:15 Stool Stool Occult Blood (CRISTIAN) - Final Occult Blood Positive 08/17/23 09:00 Blood Culture (Wb) - Pic Blood Culture - Preliminary Stenotrophomonas maltophilia 08/17/23 09:15 Sputum, Induced/Lukens Gram Stain - Final 08/17/23 09:15 Sputum, Induced/Lukens Respiratory Culture - Preliminary Stenotrophomonas maltophilia ABG Data ABG results: ABG 08/20/23 11:48 Specimen Type ART Sample Site L Radial pH 7.40 Bicarbonate Actual 20.8 L Total CO2 22 Base Excess -4 L O2 Saturation 94 L O2 % 55.0 ABG pCO2 33.3 L ABG pO2 69 L Abhijit Test Positive Respiration Rate 16 O2 Delivery Device Adult Vent Vent Mode AC/VC Tidal Volume 500.0 POC PEEP 8 Imaging Radiology Impression Chest X-Ray 08/20/23 11:23 IMPRESSION: Bilateral edema or pneumonia. Electronically Signed: Jimenez Alonso MD at 14:04 EDT , Assessment & Plan Assessment/Plan (1) Non-STEMI (non-ST elevated myocardial infarction): PLAN: Plan Patient is a 72-year-old gentleman admitted with shortness of breath was found to have elevated troponin consistent with acute non-STEMI treatment initiated per protocol admitted to the intensive care unit. Patient was found to be in acute respiratory failure resulting in the use of BiPAP Acute non-STEMI ? Patient admitted to the intensive care unit managed per protocol with heparin, aspirin added statin therapy and beta-blockers with consultation placed to cardiology. ? 08/09/2023 cardiac catheterization demonstrated Normal left main coronary artery, First diagonal vessel with 90% long proximal stenosis, Left anterior descending artery with mild disease ,Nondominant left circumflex artery with first obtuse marginal branch with 70% stenosis, Totally occluded right coronary artery with [id number] collaterals ,Low normal left ventricular ejection fraction noted on echocardiogram with dilated right ventricle Acute hypoxic respiratory failure ? Multifactorial including acute congestive heart failure, suspected PE as well as pneumonia patient placed on noninvasive ventilation Airvo and eventually intubated. Patient remains intubated and sedated and plans for likely tracheostomy tube. CT of the chest demonstrated bilateral pulmonary infiltrates involving both upper and lower lobes. Patient remains on broad-spectrum antibiotic therapy sputum cultures grew Stenotrophomonas maltophilia. Infectious disease was consulted. Chronic kidney disease stage IIIb ? patient kidney function did worsen necessitating initiation of hemodialysis by nephrology Need for alternative modes of feeding -Patient should undergo percutaneous endoscopic gastrostomy tube placement. He has been intubated and sedated for multiple days and unlikely to be able to be weaned off of the vent at this time. He will undergo tracheostomy tube placement. We can schedule him for PEG tube placement. When we placed the PEG tube we will assess his upper GI tract for any signs of acute on chronic blood loss anemia. He is fecal occult positive but I do not think he needs a colonoscopy at this time. Charges/Coding Visit Charges Inpatient E&M: 75384 Init Hosp L3
[2023-08-20] MEDS: Vital AF 1.2 Cal Liquid 1,000 ML 60 ML GT (15:27)
[2023-08-20 17:36] LABS: Bedside Glucose 170 mg/dL (74-106)
[2023-08-20] MEDS: Atorvastatin Calcium 40 MG Tablet GT (21:01)
[2023-08-21] VITALS (34 sets, daily range): BP systolic 97–115; BP diastolic 64–77; PULSE 50–199; RESP 16–28; TEMP 35.9–37.1; O2SAT 26–98; BMI 32.4
[2023-08-21] MEDS: Insulin Lispro 100 UNIT/ML INSULN.PEN SC ×3 (00:17→11:54)
[2023-08-21] MEDS: fentaNYL drip 100 ML 7.5 MCG CONT INF ×2 (01:55→15:07)
[2023-08-21 04:28] LABS: Absolute Lymphocyte Count 0.63 X10^3/uL (0.83-4.51); Absolute Neutrophil Count 10.5 X10^3/uL (2.0-7.7); Basophil# 0.02 X10^3/uL; Basophil% 0.2 % (0-1); Eosinophil# 0.25 X10^3/uL; Hematocrit 27.9 % (40-54); Hemoglobin 8.4 g/dL (13.0-16.5); Lymphocyte # 0.63 X10^3/ul (0.83-4.51); Mean Corp Hgb Conc 30.1 g/dL (32-36); Mean Corpuscular Hgb 25.7 pg (27.0-32.0); Mean Corpuscular Volume 85.3 fL (80-94); Mean Platelet Vol. 12.8 fl (6.2-12.0); Monocyte# 0.88 X10^3/uL; NRBC Flagged by Analyzer 0 % (0-5); Neutrophil # 10.53 X10^3/uL (2.7-7.7); Neutrophil % 83.7 % (47-70); Platelet Count 188 K/mm3 (150-450); RBC Distribution Width CV 18.5 % (11.6-14.6); RBC Distribution Width SD 54.7 fl (35.1-43.9); Red Blood Count 3.27 M/mm3 (4.6-6.2); White Blood Count 12.6 K/mm3 (4.4-11.0)
[2023-08-21 04:47] LABS: Anion Gap 13 (5-15); BUN 103 mg/dL (7-18); BUN/Creat Ratio 32.9 RATIO (10-20); Chloride 102 mmol/L (98-107); Creatinine, Serum 3.13 mg/dL (0.70-1.30); EST Glomerular Filtration Rate 21 mL/min (>60); Est Glom Filt Rate - Afr Amer 25 mL/min (>60); Estimated Creatinine Clearance 22.94 ml/min; Glucose 166 mg/dL (74-106); Potassium 3.7 mmol/L (3.5-5.1); Sodium Level 136 mmol/L (136-145)
[2023-08-21] MEDS: 0.9% Saline Lock 10 ML Syringe IV ×2 (04:52→08:15)
[2023-08-21] MEDS: Menthol/Lanolin/Calamine/Znox 113 GM Tube 1 APPLIC TOPICAL ×3 (04:52→21:00)
[2023-08-21] MEDS: CHLORHEXIDINE GLUC 2% CLOTH 1 EACH TOWELETTE TOPICAL (04:52)
[2023-08-21] MEDS: Propofol 10MG/Ml 1,000 MG/100 ML Bottle 10.5 MG CONT INF (04:54)
[2023-08-21 05:15] LABS: Bedside Glucose 154 mg/dL (74-106)
[2023-08-21 05:15] LABS: Bedside Glucose 178 mg/dL (74-106)
[2023-08-21] MEDS: TITRATION PARAMETER CHANGE 1 EACH IV (06:17)
[2023-08-21] MEDS: Metoprolol Tartrate 25 MG Tablet 12.5 MG GT ×2 (08:13→21:01)
[2023-08-21] MEDS: [UNRECOGNIZED DRUG - OTHER] PO ×2 (08:13→20:14)
[2023-08-21] MEDS: MINOCYCLINE HCL PO ×2 (08:13→20:14)
[2023-08-21] MEDS: Aspirin 81 MG TAB.CHEW GT (08:13)
[2023-08-21] MEDS: Pantoprazole Sodium 40 MG in 0.9% Normal Saline (100mL MB+) 100 ML 330 MG IV ×2 (08:14→21:00)
[2023-08-21] MEDS: Vital AF 1.2 Cal Liquid 1,000 ML 60 ML GT (08:14)
--- NOTE | 2023-08-21 08:14 | PN.HOSP_ITS ---
Reason for Visit Reason for Visit: Shortness of breath Subjective Subjective Patient did poorly on his weaning trial yesterday and his FiO2 had to be increased after the weaning trial of 55%. Remains on 8 of PEEP. Is awake today and able to follow commands consistently. I highly anticipate he is going to require tracheostomy and PEG if family wants to pursue it. Objective Data Objective Data Vital Signs: Vital Signs Temp Pulse Resp BP Pulse Ox O2 Del Method O2 Flow Rate 96.7 F L 104 H 25 H 113/75 94 Mechanical Ventilator 50 08/21/23 08:00 08/21/23 08:00 08/21/23 08:00 08/21/23 08:00 08/21/23 08:00 08/21/23 08:00 08/20/23 17:00 FiO2 55 08/21/23 08:00 Oxygen Flow Rate (L/min) 50 Oxygen Delivery Method Mechanical Ventilator Weight: 91.6 kg Body Mass Index (BMI) 32.4 Intake & Output: Intake and Output for Last 24 Hours 08/19/23 08/20/23 08/21/23 23:59 23:59 23:59 Intake Total 2645.48 / 2660.58 1875.82 / 1953.82 278.50 / 278.50 Output Total 1600 / 1600 575 / 750 350 / 350 Balance 1045.48 / 1060.58 1300.82 / 1203.82 -71.50 / -71.50 Lab / Micro Data 08/21/23 04:17 08/21/23 04:17 Labs: Laboratory Results - last 24 hr 08/20/23 11:34: POC Glucose 175 H 08/20/23 17:10: POC Glucose 170 H 08/21/23 00:15: POC Glucose 154 H 08/21/23 04:17: WBC 12.6 H, RBC 3.27 L, Hgb 8.4 L, Hct 27.9 L, MCV 85.3, MCH 25.7 L, MCHC 30.1 L, RDW Std Deviation 54.7 H, RDW Coeff of Raghavendra 18.5 H, Plt Count 188, MPV 12.8 H, Immature Gran % (Auto) 2.100 H, Neut % (Auto) 83.7 H, Lymph % (Auto) 5.0 L, [place] % (Auto) 7.0, Eos % (Auto) 2.0, Baso % (Auto) 0.2, Absolute Neuts (auto) 10.5 H, Absolute Lymphs (auto) 0.63 L, Nucleated RBC % 0, Sodium 136, Potassium 3.7, Chloride 102, Carbon Dioxide 21.0, Anion Gap 13, BUN 103 H*, Creatinine 3.13 H, Estim Creat Clear Calc 22.94, Est GFR (MDRD) Af Amer 25 L, Est GFR (MDRD) Non-Af 21 L, BUN/Creatinine Ratio 32.9 H, Glucose 166 H, Calcium 8.0 L 08/21/23 04:51: POC Glucose 178 H Micro: Microbiology 08/12/23 12:29 Wash - Right Middle Lobe Virus Culture - Final 08/20/23 10:15 Stool Stool Occult Blood (CRISTIAN) - Final Occult Blood Positive 08/17/23 09:00 Blood Culture (Wb) - Pic Blood Culture - Preliminary Stenotrophomonas maltophilia 08/17/23 09:15 Sputum, Induced/Lukens Gram Stain - Final 08/17/23 09:15 Sputum, Induced/Lukens Respiratory Culture - Preliminary Stenotrophomonas maltophilia 08/17/23 09:00 Blood Culture (Wb) - Right Wrist Blood Culture - Preliminary No growth in 48 hours. 08/11/23 15:14 Fluid - Pleural (Lung) Gram Stain - Final 08/11/23 15:14 Fluid - Pleural (Lung) Body Fluid Culture - Final Culture exhibits no growth. 08/11/23 15:14 Fluid - Pleural (Lung) Anaerobic Culture - Final No growth in 5 days. 08/12/23 12:29 Wash - Bronchial Gram Stain - Final 08/12/23 12:29 Wash - Bronchial Respiratory Culture - Final Stenotrophomonas maltophilia 08/11/23 09:59 Sputum, Induced/Lukens Gram Stain - Final 08/11/23 09:59 Sputum, Induced/Lukens Respiratory Culture - Final Stenotrophomonas maltophilia 08/12/23 10:49 Nasal Secretion SARS-CoV-2 Antigen (Rapid) - Final 08/04/23 00:00 Sputum, Expectorated/Coughed Gram Stain - Final 08/04/23 00:00 Sputum, Expectorated/Coughed Respiratory Culture - Final 08/03/23 21:57 Urine, Random Legionella Antigen - Final 08/03/23 21:57 Urine, Random Streptococcus pneumoniae Antigen (M - Final 08/03/23 18:30 Mucosa - Nose SARS-CoV-2, Influenza & RSV (PCR) - Final ABG Data ABG results: ABG 08/20/23 11:48 Specimen Type ART Sample Site L Radial pH 7.40 Bicarbonate Actual 20.8 L Total CO2 22 Base Excess -4 L O2 Saturation 94 L O2 % 55.0 ABG pCO2 33.3 L ABG pO2 69 L Abhijit Test Positive Respiration Rate 16 O2 Delivery Device Adult Vent Vent Mode AC/VC Tidal Volume 500.0 POC PEEP 8 Radiography Diagnostic Testing: Radiology Impression Chest X-Ray 08/20/23 11:23 IMPRESSION: Bilateral edema or pneumonia. Electronically Signed: Jimenez Alonso MD at 14:04 EDT , Physical Exam Narrative Const alert, no apparent distress and healthy appearing Constitutional Narrative: Older, overweight, white male, intubated with sedation on however he is awake and able to follow commands consistently, appears slightly anxious but not toxic HEENT normocephalic, head/scalp atraumatic and moist oral mucous membranes HEENT Narrative: ET tube and OG in place Neck Neck Narrative: Resp no retractions, no use of accessory muscles and No clear to auscultation bilaterally Resp Narrative: Coarse sounding breath sounds on the right greater than the left, mild tachypnea on the ventilator however this appears to be related to his anxiety Auscultation: rhonchi; Negative for rales or wheezes Cardio regular rate, regular rhythm, S1 normal heart sound, S2 normal heart sound, no murmurs, no rub, no gallops and no clicks GI normal to inspection, nondistended, normoactive bowel sounds, soft to palpation and non-tender Extremity no clubbing, cyanosis or edema Extremity Narrative: Right upper extremity PICC in place-dressing is clean dry and intact Neuro moves all extremities and no focal motor deficits Neuro Narrative: Awake and will follow commands consistently Sensorium / Orientation: awake and alert Psych Psych Narrative: Seems anxious on the ventilator Mood & Affect: anxious Assessment & Plan Assessment/Plan (1) TRENA (acute kidney injury): (2) Chronic kidney disease, stage 3b: (3) Pneumonia: QUALIFIERS: Pneumonia type: due to unspecified organism (4) Acute hypoxic respiratory failure: PLAN: Plan Acute hypoxic respiratory failure-multifactorial(NSTEMI/pneumonia/pulmonary embolism/volume overload) -Intubated 08/11/2023 for worsening respiratory status--> day 10 -Remains on mechanical ventilation and FiO2 had to be increased to 55% maintaining a PEEP of 8 yesterday after his spontaneous breathing trial due to tachypnea and hypoxia -Chest x-ray appears to be consistent with ARDS -Continue ceftazidime and oral minocycline -Continue Mucinex -As needed albuterol -Propofol for sedation/fentanyl for sedation--> sedation vacations and weaning trials as able -Tube feeds remain at goal -CCM/pulmonary medicine following-appreciate input -Highly anticipate that patient will need tracheostomy and PEG placement if family wishes to be aggressive MDR Stenotrophomonas pneumonia and bacteremia -Had stenotrophomonas that was sensitive to Levaquin on both his initial sputum and bronc -Was transitioned to Levaquin but clinically worsens a repeat cultures were obtained -Culture now is resistant to both Bactrim and Levaquin -Continue ceftazidime and minocycline -Infectious diseases following-appreciate input Leukocytosis -This has almost normalized -Continue to monitor on current antibiotics Acute NSTEMI -Cardiac catheterization done on 08/08/2023 showed a normal left main, first diagonal with 90% long proximal stenosis, LAD with mild disease, nondominant left circumflex with first obtuse marginal branch noting 70% stenosis and a totally occluded RCA with [id number] collaterals -Medical therapy recommended -Continue metoprolol 12.5 mg twice daily -Patient still has some intermittent tachycardia however it is when he is more awake and anxious -Continue statin 40 mg nightly -Hold aspirin due to suspected GI bleed -Restart once okay with GI -Cardiology is following-appreciate input -Will need outpatient follow-up after discharge Mild hyponatremia -Fluctuates with volume status related to dialysis Acute HFpEF secondary to NSTEMI -Continue dialysis as needed for fluid management TRENA on CKD stage IIIb -Continue dialysis per nephrology -Serologies are all unremarkable except C4 was slightly elevated at 46 -Current working diagnosis is TRENA secondary to ATN -Avoid nephrotoxins as able -Renally dose medications -Still no signs of meaningful renal recovery -On dialysis currently -Nephrology is following Pulmonary embolus/right lower extremity DVT -IVC filter placed on 08/18/[address] Estrella Pleural effusion-transudative -Status post right thoracentesis for 1200 cc removal -Monitor clinically and with intermittent imaging for recurrent Acute on chronic anemia secondary to GI bleed -Baseline hemoglobin appears to run between 10 and 12 -Down to 8.4 today and dropping slowly with time -Stool guaiac is positive -Highly suspect upper GI bleed -Check hemoglobin Q8 and transfuse for hemoglobin less than 7 or precipitous drop -Repeat full CBC in a.m. -Protonix 40 mg twice daily -Hold aspirin -GI is consulted Hypertension -Patient on chlorthalidone and amlodipine at baseline -These medications are on hold -Continue metoprolol with hold parameters due to coronary disease -Continue to monitor blood pressure Invasive urothelial carcinoma -Status post transurethral resection of large bladder tumor and robotic assisted laparoscopic nephroureterectomy with bladder closure -done by Dr. Watts in February 2023 -Currently has solitary kidney -Ongoing outpatient follow-up DVT/GI prophylaxis -IVC filter in place -Continue SCDs -cont IV PPI CODE STATUS -DNR CCA with short-term intubation Charges/Coding Visit Charges Inpatient E&M: 37876 Subs Hosp L2
[2023-08-21] MEDS: Chlorhexidine 15 ML PO ×2 (08:15→20:16)
[2023-08-21 08:30] LABS: Hemoglobin 8.5 g/dL (13.0-16.5)
[2023-08-21] MEDS: NORMAL SALINE 0.9% IV (10:19)
[2023-08-21] MEDS: Potassium Chloride Oral Soln 20 MEQ/15 ML UDC 40 MEQ GT (10:19)
[2023-08-21] MEDS: CEFTAZIDIME IV (10:19)
[2023-08-21 10:35] LABS: Magnesium 2.7 mg/dL (1.6-2.6)
--- NOTE | 2023-08-21 11:06 | PCM.PN.REN ---
Subjective Subjective Follow-up on acute kidney injury on CKD 3B to 4. Remains intubated, failed attempt to wean, FiO2 up to 55%, PEEP of 8. Sedated with fentanyl and propofol, no pressors. Blood pressure is soft but stable. He has been dialysis dependent and last dialysis was Tuesday. He makes urine. Creatinine continues to go up in between treatments Objective Data Objective Data Vital Signs: Vital Signs Temp Pulse Resp BP Pulse Ox O2 Del Method O2 Flow Rate 96.7 F L 95 21 H 101/69 92 Mechanical Ventilator 50 08/21/23 08:00 08/21/23 10:00 08/21/23 10:00 08/21/23 10:00 08/21/23 10:00 08/21/23 10:00 08/20/23 17:00 FiO2 55 08/21/23 10:00 Oxygen Flow Rate (L/min) 50 Oxygen Delivery Method Mechanical Ventilator Weight: 91.6 kg Body Mass Index (BMI) 32.4 Intake & Output: Intake and Output for Last 24 Hours 08/19/23 08/20/23 08/21/23 23:59 23:59 23:59 Intake Total 2645.48 / 2660.58 1875.82 / 1953.82 1407.00 / 1407.00 Output Total 1600 / 1600 575 / 750 350 / 350 Balance 1045.48 / 1060.58 1300.82 / 1203.82 1057.00 / 1057.00 Lab / Micro Data Attestation: I reviewed the patient's lab results. 08/21/23 08:25 08/21/23 04:17 Labs: Laboratory Results - last 24 hr 08/20/23 11:34: POC Glucose 175 H 08/20/23 17:10: POC Glucose 170 H 08/21/23 00:15: POC Glucose 154 H 08/21/23 04:17: WBC 12.6 H, RBC 3.27 L, Hgb 8.4 L, Hct 27.9 L, MCV 85.3, MCH 25.7 L, MCHC 30.1 L, RDW Std Deviation 54.7 H, RDW Coeff of Arghavendra 18.5 H, Plt Count 188, MPV 12.8 H, Immature Gran % (Auto) 2.100 H, Neut % (Auto) 83.7 H, Lymph % (Auto) 5.0 L, [place] % (Auto) 7.0, Eos % (Auto) 2.0, Baso % (Auto) 0.2, Absolute Neuts (auto) 10.5 H, Absolute Lymphs (auto) 0.63 L, Nucleated RBC % 0, Sodium 136, Potassium 3.7, Chloride 102, Carbon Dioxide 21.0, Anion Gap 13, BUN 103 H*, Creatinine 3.13 H, Estim Creat Clear Calc 22.94, Est GFR (MDRD) Af Amer 25 L, Est GFR (MDRD) Non-Af 21 L, BUN/Creatinine Ratio 32.9 H, Glucose 166 H, Calcium 8.0 L, Magnesium 2.7 H 08/21/23 04:51: POC Glucose 178 H 08/21/23 08:25: Hgb 8.5 L Micro: Microbiology 08/12/23 12:29 Wash - Right Middle Lobe Virus Culture - Final 08/20/23 10:15 Stool Stool Occult Blood (CRISTIAN) - Final Occult Blood Positive 08/17/23 09:00 Blood Culture (Wb) - Pic Blood Culture - Preliminary Stenotrophomonas maltophilia 08/17/23 09:15 Sputum, Induced/Lukens Gram Stain - Final 08/17/23 09:15 Sputum, Induced/Lukens Respiratory Culture - Preliminary Stenotrophomonas maltophilia 08/17/23 09:00 Blood Culture (Wb) - Right Wrist Blood Culture - Preliminary No growth in 48 hours. 08/11/23 15:14 Fluid - Pleural (Lung) Gram Stain - Final 08/11/23 15:14 Fluid - Pleural (Lung) Body Fluid Culture - Final Culture exhibits no growth. 08/11/23 15:14 Fluid - Pleural (Lung) Anaerobic Culture - Final No growth in 5 days. 08/12/23 12:29 Wash - Bronchial Gram Stain - Final 08/12/23 12:29 Wash - Bronchial Respiratory Culture - Final Stenotrophomonas maltophilia 08/11/23 09:59 Sputum, Induced/Lukens Gram Stain - Final 08/11/23 09:59 Sputum, Induced/Lukens Respiratory Culture - Final Stenotrophomonas maltophilia 08/12/23 10:49 Nasal Secretion SARS-CoV-2 Antigen (Rapid) - Final 08/04/23 00:00 Sputum, Expectorated/Coughed Gram Stain - Final 04/25/24 00:00 Sputum, Expectorated/Coughed Respiratory Culture - Final 08/03/23 21:57 Urine, Random Legionella Antigen - Final 08/03/23 21:57 Urine, Random Streptococcus pneumoniae Antigen (M - Final 08/03/23 18:30 Mucosa - Nose SARS-CoV-2, Influenza & RSV (PCR) - Final ABG Data ABG results: ABG 08/20/23 11:48 Specimen Type ART Sample Site L Radial pH 7.40 Bicarbonate Actual 20.8 L Total CO2 22 Base Excess -4 L O2 Saturation 94 L O2 % 55.0 ABG pCO2 33.3 L ABG pO2 69 L Abhijit Test Positive Respiration Rate 16 O2 Delivery Device Adult Vent Vent Mode AC/VC Tidal Volume 500.0 POC PEEP 8 Radiography Diagnostic Testing: Radiology Impression Chest X-Ray 08/20/23 11:23 IMPRESSION: Bilateral edema or pneumonia. Electronically Signed: Jimenez Alonso MD at 14:04 EDT , Physical Exam Const General Appearance: patient mechanically ventilated HEENT normocephalic Head and Scalp: atraumatic External Ear: external ears normal Neck no lymphadenopathy Resp Auscultation: rhonchi throughout Cardio regular rate and no murmurs GI non-distended Auscultation: normoactive bowel sounds Palpation: soft Bladder / Kidney Exam: catheter in place Skin no rashes or lesions noted Neuro Sensorium / Orientation: sedated on vent Assessment & Plan Assessment/Plan (1) TRENA (acute kidney injury): PLAN: Patient continues to have increased in creatinine in between treatments, in spite of a increasing urine output. Chest x-ray consistent with fluid overload Will dialyze tomorrow, no dialysis needed today
--- NOTE | 2023-08-21 11:31 | PCM.PN.TICU ---
Objective Data Objective Data Vital Signs: Vital Signs Last response Temperature 35.9 C L 08/21/23 08:00 Temperature Source Temporal 08/21/23 08:00 Pulse Rate 95 08/21/23 10:00 Pulse Strength Weak (1+) 08/20/23 21:27 Respiratory Rate 21 H 08/21/23 10:00 Respiratory Effort Normal, Non-Labored 08/21/23 04:05 Respiratory Depth Normal 08/21/23 04:05 Respiratory Pattern Normal 08/21/23 04:05 Blood Pressure 101/69 08/21/23 10:00 Blood Pressure Mean 79 08/21/23 10:00 Blood Pressure Source Monitor 08/21/23 10:00 Blood Pressure Position Semi-Fowlers 08/21/23 10:00 Blood Pressure Location Left Arm 08/21/23 10:00 Pulse Ox 92 08/21/23 10:00 Oxygen Delivery Method Mechanical Ventilator 08/21/23 10:00 Oxygen Flow Rate (L/min) 50 08/20/23 17:00 Fraction of Inspired Oxygen (FIO2) 55 08/21/23 10:00 I&O: I&O Last 24 Hours 08/20/23 08/20/23 08/21/23 11:59 23:59 11:59 Intake Total 371.33 / 1953.82 1504.49 / 1953.82 1407.00 / 1407.00 Output Total 425 / 750 150 / 750 350 / 350 Balance -53.67 / 1203.82 1354.49 / 1203.82 1057.00 / 1057.00 I&O: Total Stay 08/03/23 13:43 thru 08/21/23 09:32 Intake Total 85872.76 Output Total 29509 Balance 4493.76 Current Meds Ordered / Administered: Current meds ordered / Administered Generic Name Dose Route Start Last Admin Trade Name Freq PRN Reason Stop Dose Admin Acetaminophen 650 mg 08/12/23 03:35 Acetaminophen 650 Mg/20 Ml Udc GT Q6H PRN PRN Pain 1-10 Or Fever >100.7 Albuterol Sulfate 2.5 mg 08/03/23 17:36 08/20/23 19:01 Albuterol 2.5 Mg/3 Ml Vial.Neb. INHALATION 2.5 mg Q2H PRN PRN Administration SHORTNESS OF BREATH Aspirin 81 mg 08/12/23 08:00 08/21/23 08:13 Aspirin 81 Mg Tab.Chew GT 81 mg BREAKFAST REY Administration Atorvastatin Calcium 40 mg 08/12/23 22:00 08/20/23 21:01 Atorvastatin Calcium 40 Mg Tablet GT 40 mg QHS REY Administration Calamine/Phenol 1 applic 08/13/23 22:00 08/21/23 04:52 Menthol/Lanolin/Calamine/Znox 113 Gm Tube TOPICAL 1 applic TID REY Administration Protocol Chlorhexidine Gluconate 1 each 08/11/23 10:00 08/21/23 04:52 Chlorhexidine Gluc 2% Cloth 1 Each Towelette TOPICAL 1 each DAILY REY Administration Chlorhexidine Gluconate 15 ml 08/11/23 22:00 08/21/23 08:15 Chlorhexidine 15 Ml PO 15 ml BID REY Administration Minocycline HCl 2,000 mg/ 0 mg 08/19/23 16:30 08/21/23 08:13 Compound Med 200 ml PO 20 ml Q12 REY Administration Dextrose 0 gm 08/16/23 09:22 Dextrose 50%-Water 25 Gm/50 Ml Disp.Syrin IV X1 PRN Hypoglycemia Protocol Glucagon 1 mg 08/16/23 09:22 Glucagon 1 Mg/Ml Syringe IM X1 PRN Hypoglycemia Sodium Chloride 250 mls @ 15 mls/hr 08/04/23 23:09 08/08/23 02:14 IV Infused .[id number] PRN Infusion Additional IVPB Infusion Sodium Chloride 250 mls @ 15 mls/hr 08/04/23 23:09 IV .[id number] PRN Saline Flush Propofol 1,000 mg in 100 mls @ 5.496 mls/hr 08/11/23 07:55 08/21/23 09:00 Diprivan CONT INF 20 mcg/kg/min .Q12H REY 11 mls/hr Titration Protocol 10 MCG/KG/MIN Fentanyl 100 mls @ 5 mls/hr 08/11/23 07:55 08/21/23 09:00 CONT INF 75 mcg/hr UD RYE 7.5 mls/hr Titration Protocol 50 MCG/HR Enteral Nutritional Formula 1,000 mls @ 60 mls/hr 08/12/23 17:15 08/21/23 08:14 Vital Af 1.2 Kam Liquid GT 60 mls/hr .[id number] REY Administration cefTAZidime 1 gm/ Sodium 60 mls @ 120 mls/hr 08/20/23 14:00 08/21/23 10:19 Chloride IV 120 mls/hr DAILY REY Administration Pantoprazole Sodium 40 mg/ 110 mls @ 330 mls/hr 08/20/23 22:00 08/21/23 08:56 Sodium Chloride IV Infused Q12 REY Infusion Insulin Glargine 26 unit 08/20/23 10:00 08/20/23 11:35 Insulin Glargine-Yfgn 100 Unit/Ml Pen SC 26 unit DAILY REY Administration Insulin Human Lispro 0 unit 08/16/23 12:00 08/21/23 04:52 Insulin Lispro 100 Unit/Ml Insuln.Pen SC 1 u Q6 REY Administration Protocol Metoprolol Tartrate 12.5 mg 08/19/23 10:00 08/21/23 08:13 Metoprolol Tartrate 25 Mg Tablet GT 12.5 mg BID REY Administration Protocol Morphine Sulfate 2 - 4 mg 08/03/23 17:36 08/05/23 11:44 Morphine 2 Mg/Ml Syringe IV 4 mg Q3H PRN PRN Administration Pain Score 6-10 Ondansetron HCl 4 mg 08/03/23 17:36 08/17/23 01:35 Ondansetron 4 Mg/2 Ml Vial IV 4 mg Q8H PRN PRN Administration NAUSEA/VOMITING Sodium Chloride 10 - 40 ml 08/03/23 17:59 08/21/23 08:15 0.9% Saline Lock 10 Ml Syringe IV 20 ml UD PRN Administration SALINE FLUSH Lab / Micro Data 08/21/23 08:25 08/21/23 04:17 Labs: Laboratory Results - last 24 hr 08/20/23 11:34: POC Glucose 175 H 08/20/23 17:10: POC Glucose 170 H 08/21/23 00:15: POC Glucose 154 H 08/21/23 04:17: WBC 12.6 H, RBC 3.27 L, Hgb 8.4 L, Hct 27.9 L, MCV 85.3, MCH 25.7 L, MCHC 30.1 L, RDW Std Deviation 54.7 H, RDW Coeff of Raghavendra 18.5 H, Plt Count 188, MPV 12.8 H, Immature Gran % (Auto) 2.100 H, Neut % (Auto) 83.7 H, Lymph % (Auto) 5.0 L, [place] % (Auto) 7.0, Eos % (Auto) 2.0, Baso % (Auto) 0.2, Absolute Neuts (auto) 10.5 H, Absolute Lymphs (auto) 0.63 L, Nucleated RBC % 0, Sodium 136, Potassium 3.7, Chloride 102, Carbon Dioxide 21.0, Anion Gap 13, BUN 103 H*, Creatinine 3.13 H, Estim Creat Clear Calc 22.94, Est GFR (MDRD) Af Amer 25 L, Est GFR (MDRD) Non-Af 21 L, BUN/Creatinine Ratio 32.9 H, Glucose 166 H, Calcium 8.0 L, Magnesium 2.7 H 08/21/23 04:51: POC Glucose 178 H 08/21/23 08:25: Hgb 8.5 L Micro: Microbiology 08/12/23 12:29 Wash - Right Middle Lobe Virus Culture - Final 08/20/23 10:15 Stool Stool Occult Blood (CRISTIAN) - Final Occult Blood Positive 08/17/23 09:00 Blood Culture (Wb) - Pic Blood Culture - Preliminary Stenotrophomonas maltophilia ABG Data ABG results: ABG 08/20/23 11:48 Specimen Type ART Sample Site L Radial pH 7.40 Bicarbonate Actual 20.8 L Total CO2 22 Base Excess -4 L O2 Saturation 94 L O2 % 55.0 ABG pCO2 33.3 L ABG pO2 69 L Abhijit Test Positive Respiration Rate 16 O2 Delivery Device Adult Vent Vent Mode AC/VC Tidal Volume 500.0 POC PEEP 8 Imaging Radiology Impression Chest X-Ray 08/20/23 11:23 IMPRESSION: Bilateral edema or pneumonia. Electronically Signed: Jimenez Alonso MD at 14:04 EDT , Assessment and Plan . Assessment and plan: Critical Care Time: The entirety of this encounter was done via Telemedicine Subjective Subjective Brief summary: 72-year-old male, with a history as outlined below, who presented to the emergency department on August 02 with progressive exertional dyspnea. The patient has no pre-existing lung conditions. He stated that he does not utilize supplemental oxygen at his baseline. He has never been diagnosed with obstructive sleep apnea. The patient denied a history of VTE. The patient does have chronic kidney disease and follows with an outpatient medical assistant ob gyn. On presentation to the emergency department, the patient was documented to be afebrile hemodynamically stable. He was initially documented to be saturating in the mid 90s on room air. Laboratory evaluation revealed a normal white blood cell count. Chemistry profile was notable for a sodium of 134, potassium of 2.7, chloride of 96 and creatinine of 2.02. Troponin was elevated at 13,391 with a BNP of 1259. Chest imaging demonstrated patchy bilateral infiltrates. Strep and urine Legionella antigens were negative. COVID, influenza and RSV PCR's were negative. Sputum culture was collected. The patient was subsequently admitted to the medical intensive care unit for further management. The patient was ultimately evaluated by cardiology over concerns for an NSTEMI. He was placed on a heparin infusion and echocardiogram was obtained. That study demonstrated normal LV size and function with an ejection fraction of 55%. Diastolic function was unable to be assessed. RVSP was unable to be estimated. This morning, the patient was initiated on a Lasix infusion. Sub: Pt seen and examined. Intubated, sedated. Again desats when more awake and was also slightly agitated. ETT secretions remain notable but maybe less- leonarda brown, but not overtly bloody. Makes good urine. Afebrile. Prop @ 20 Fent @ 75 TF @ 60 + 100 qh 16 500 8 55 PE: General: Well developed, intubated HEENT: anicteric Sclera; + ETT, nl nose; supple neck, no masses Cardiovascular: Regular Rate and Rhythm; No murmurs, rubs, gallops; no displaced PMI Respiratory: diminished; no crackles, wheezes, or rhonchi Abdominal: Non-tender; Non distended; hypoBS x 4; No Hepatosplenomegaly Extremities: Warm, well perfused; No clubbing, cyanosis; capillary refill < 2 sec Neurological: sedated but awake & follows commands appropriately A/P: #Acute hypoxemic respiratory failure: multifactorial in the setting of decompensated CHF, PNA, PE on hep gtt cb by bloody secretions with suspected alveolar hemorrhage; intubated /3, bronch 5/3 nondiagnostic for DAH --> cont MV; settings reviewed/adjusted; SAT/SBT not being well tolerated; would coordinate care with onsite surgery/GI for trach/PEG early next week #PNA: diffucult to treat; emp ceftriax/azithro started 08/05, sputum with Stenotrophomonas and Abx adjusted to levofloxacin; again with rising WBCs and Cx still with steno now R to levaquin/Bactrim; also GNR BCx --> ID consulted, cont Abx- ceftaz/minocycyline, F/U repeat Cx & if persistent bacteremia will need further eval #Bacteremia: see above #NSTEMI: sp emp hep gtt; sp LHC 08/08; med management recommended per cardiology #HFpEF, acute exacerbation: cont diuresis as tolerated #TRENA on CKD: transitioned to HD support; nephrology on board and managing #DVT/PE: LE US positive for acute thrombus in Rt peroneal vein; CTA 08/09 showed PE; unable to tolerate hep gtt due to hemoptysis and sp IVC filter 08/17 #Rt pleural effusion: sp thora with results c/w transudative process, cont monitoring #Acute on chronic anemia, ?GIB: GI on board, may be able to do EGD during PEG if this is planned TF SCDs Guarded prognosis CCT: 50 min The entirety of the encounter was completed via telemedicine.
[2023-08-21] MEDS: Insulin Glargine-YFGN 100 UNIT/ML Pen 26 UNIT SC (11:53)
[2023-08-21 12:14] LABS: Bedside Glucose 155 mg/dL (74-106)
[2023-08-21] MEDS: Albuterol 2.5 MG/3 ML VIAL.NEB. INHALATION ×2 (12:14→22:41)
[2023-08-21] MEDS: Propofol 10MG/Ml 1,000 MG/100 ML Bottle 11 MG CONT INF ×2 (12:20→20:15)
[2023-08-21 15:17] LABS: Hemoglobin 8.8 g/dL (13.0-16.5)
[2023-08-21 17:27] LABS: Bedside Glucose 137 mg/dL (74-106)
[2023-08-21] MEDS: Atorvastatin Calcium 40 MG Tablet GT (21:02)
[2023-08-21 22:25] LABS: Hemoglobin 8.6 g/dL (13.0-16.5)
[2023-08-21 22:34] LABS: Bedside Glucose 132 mg/dL (74-106)
[2023-08-22] VITALS (36 sets, daily range): BP systolic 66–130; BP diastolic 53–86; PULSE 78–122; RESP 13–24; TEMP 36.1–36.6; O2SAT 88–99; BMI 32.8
[2023-08-22] MEDS: Vital AF 1.2 Cal Liquid 1,000 ML 60 ML GT (02:56)
[2023-08-22 04:11] LABS: Absolute Lymphocyte Count 0.51 X10^3/uL (0.83-4.51); Absolute Neutrophil Count 10.4 X10^3/uL (2.0-7.7); Basophil# 0.02 X10^3/uL; Basophil% 0.2 % (0-1); Eosinophils% 1.7 % (0-5); Hematocrit 28.2 % (40-54); Hemoglobin 8.7 g/dL (13.0-16.5); Lymphocyte # 0.51 X10^3/ul (0.83-4.51); Lymphocyte % 4.2 % (19-41); Mean Corp Hgb Conc 30.9 g/dL (32-36); Mean Corpuscular Hgb 26.4 pg (27.0-32.0); Mean Corpuscular Volume 85.5 fL (80-94); Mean Platelet Vol. 12.7 fl (6.2-12.0); Monocyte# 0.78 X10^3/uL; Monocyte% 6.4 % (0-10); NRBC Flagged by Analyzer 0 % (0-5); Neutrophil # 10.37 X10^3/uL (2.7-7.7); Neutrophil % 85.7 % (47-70); POSITIVE DIFFERENTIAL YES; Platelet Count 198 K/mm3 (150-450); RBC Distribution Width CV 18.6 % (11.6-14.6); RBC Distribution Width SD 56.2 fl (35.1-43.9); White Blood Count 12.1 K/mm3 (4.4-11.0)
[2023-08-22] MEDS: Propofol 10MG/Ml 1,000 MG/100 ML Bottle 11 MG CONT INF (04:12)
[2023-08-22] MEDS: fentaNYL drip 100 ML 7.5 MCG CONT INF ×2 (04:28→19:00)
[2023-08-22 04:45] LABS: ALB/GLOB Ratio 0.5 RATIO (0.9-2.4); AST(SGOT) 26 U/L (15-37); Alanine Aminotransfer ALT/SGPT 35 U/L (16-61); Albumin, Serum 1.8 g/dL (3.2-5.0); Alkaline Phosphatase 70 U/L (45-117); Anion Gap 12 (5-15); BUN 113 mg/dL (7-18); Calcium,Total 7.9 mg/dL (8.5-10.1); Chloride 102 mmol/L (98-107); Creatinine, Serum 3.14 mg/dL (0.70-1.30); EST Glomerular Filtration Rate 21 mL/min (>60); Est Glom Filt Rate - Afr Amer 25 mL/min (>60); Estimated Creatinine Clearance 22.87 ml/min; Globulin 3.6 g/dL (2.2-4.2); Glucose 170 mg/dL (74-106); Magnesium 2.7 mg/dL (1.6-2.6); Phosphorus 6.6 mg/dL (2.5-4.9); Potassium 3.9 mmol/L (3.5-5.1); Protein, Total 5.4 g/dL (6.4-8.2); Sodium Level 135 mmol/L (136-145)
[2023-08-22] MEDS: Insulin Lispro 100 UNIT/ML INSULN.PEN SC (05:32)
[2023-08-22] MEDS: Menthol/Lanolin/Calamine/Znox 113 GM Tube 1 APPLIC TOPICAL ×3 (05:33→21:05)
[2023-08-22 05:52] LABS: Bedside Glucose 155 mg/dL (74-106)
--- NOTE | 2023-08-22 06:50 | PCM.PN.INT ---
Assessment & Plan Assessment/Plan (1) Acute hypoxic respiratory failure: (2) Pleural effusion, right: (3) TRENA (acute kidney injury): PLAN: Plan RECOMMENDATIONS: 1. Continue assist-control mode mechanical ventilation. Wean FiO2 and PEEP for saturations greater than 90%. 2. Transition from propofol to Precedex to facilitate weaning from vent. Add scheduled Seroquel as well. 3. Ongoing dialysis support per nephrology recommendations. Attempt fluid removal today. 4. Antimicrobials per ID recommendations. 5. Continue tube feeding as tolerated. 6. Continue appropriate GI prophylaxis. 7. Repeat spontaneous awakening and breathing trial tomorrow. IMPRESSIONS: 1. Acute hypoxemic respiratory failure Initially, the patient's respiratory decompensation was felt to be a consequence of decompensated heart failure with preserved ejection fraction in the setting of an NSTEMI. However, underlying infection related to stenotrophomonas seems more likely. Subsequent attempts at volume optimization led to no significant improvement in his respiratory status. The patient was also diagnosed with a right lower extremity DVT and small nonocclusive right lower lobe PE. He was subsequently initiated on a weight-based heparin infusion. Ultimately, the patient continued to decompensate from a respiratory perspective and required intubation. Upon intubation, the patient was noted to have a significant amount of bleeding from his endotracheal tube, raising the suspicion for diffuse alveolar hemorrhage. Nevertheless, subsequent bronchoscopy was not consistent with DAH. The patient underwent thoracentesis as well from the right hemithorax which appeared to be transudative in nature. Cardiac catheterization has already been completed, for which medical therapy was recommended. The patient continues to have a tenuous respiratory status on the ventilator, requiring high FiO2, and continues to experience frequent bloody secretions/clots. Over concerns that the ongoing bloody secretions could be contributing to his persistent high oxygenation requirement, an IVC filter was placed on August 17 in order to facilitate discontinuation of the weight-based heparin infusion. The patient remains on antimicrobials under the discretion of infectious diseases due to a multidrug-resistant stenotrophomonas. Plan to continue to wean FiO2 and PEEP to maintain saturations at or above 90%. Continue attempts at daily spontaneous awakening and breathing trials. Ultimately, if the patient is not able to be extubated this week, consideration will need to be given to tracheostomy and PEG tube placement. 2. NSTEMI/acute decompensated heart failure with preserved ejection fraction Management per cardiology. 3. Acute on chronic kidney disease Nephrology is following. The patient's worsening renal insufficiency is likely multifactorial and related to prerenal etiology coupled with possible contrast nephropathy from recent catheterization and CTA chest. Continue ongoing dialysis support per nephrology recommendations. TIME: 33 minutes, independent of procedures, was spent addressing the patient's acute hypoxemic respiratory failure, NSTEMI, acute decompensated heart failure with preserved ejection fraction, stenotrophomonas pneumonia, acute on chronic kidney disease, review of all data and collaboration with care team. Subjective Subjective The patient was seen and examined at the bedside this morning. Events from the last 24 hours have been reviewed. The patient is currently afebrile, hemodynamically stable and maintaining appropriate oxygen saturations on assist-control mode mechanical ventilation with an FiO2 requirement of 50%. The patient failed his spontaneous breathing trial this morning on account of agitation and tachypnea. The patient is currently documented to be overall net +6 L for the hospitalization. Hemoglobin is stable at 8.7 g/dL. Objective Data Objective Data The patient's most recent lab work, culture data and imaging studies have all been personally reviewed. Surface echocardiogram demonstrated normal LV size and function with an ejection fraction of 55%. Doppler study was positive for right-sided DVT. Sputum and blood cultures were positive for stenotrophomonas. Vital Signs: Vital Signs Temp Pulse Resp BP Pulse Ox O2 Del Method O2 Flow Rate 97 F L 113 H 18 130/79 H 90 Mechanical Ventilator 50 08/22/23 04:00 08/22/23 06:00 08/22/23 06:00 08/22/23 06:00 08/22/23 06:00 08/22/23 06:00 08/20/23 17:00 FiO2 50 08/22/23 06:00 Oxygen Flow Rate (L/min) 50 Oxygen Delivery Method Mechanical Ventilator Weight: 203 lb 7.787 oz Body Mass Index (BMI) 32.8 Intake & Output: Intake and Output for Last 24 Hours 08/20/23 08/21/23 08/22/23 23:59 23:59 23:59 Intake Total 1875.82 / 1953.82 2016.00 / 4.50 1290.39 / 1290.39 Output Total 575 / 750 475 / 475 250 / 250 Balance 1300.82 / 1203.82 1541.00 / 1619.50 1040.39 / 1040.39 Lab / Micro Data Attestation: I reviewed the patient's lab results. 08/22/23 03:50 08/22/23 03:50 Labs: Laboratory Results - last 24 hr 08/21/23 04:17: Magnesium 2.7 H 08/21/23 08:25: Hgb 8.5 L 08/21/23 11:53: POC Glucose 155 H 08/21/23 15:00: Hgb 8.8 L 08/21/23 17:08: POC Glucose 137 H 08/21/23 22:15: Hgb 8.6 L, POC Glucose 132 H 08/22/23 03:50: WBC 12.1 H, RBC 3.30 L, Hgb 8.7 L, Hct 28.2 L, MCV 85.5, MCH 26.4 L, MCHC 30.9 L, RDW Std Deviation 56.2 H, RDW Coeff of Raghavendra 18.6 H, Plt Count 198, MPV 12.7 H, Immature Gran % (Auto) 1.800 H, Neut % (Auto) 85.7 H, Lymph % (Auto) 4.2 L, [place] % (Auto) 6.4, Eos % (Auto) 1.7, Baso % (Auto) 0.2, Absolute Neuts (auto) 10.4 H, Absolute Lymphs (auto) 0.51 L, Nucleated RBC % 0, Sodium 135 L, Potassium 3.9, Chloride 102, Carbon Dioxide 21.0, Anion Gap 12, BUN 113 H*, Creatinine 3.14 H, Estim Creat Clear Calc 22.87, Est GFR (MDRD) Af Amer 25 L, Est GFR (MDRD) Non-Af 21 L, BUN/Creatinine Ratio 36.0 H, Glucose 170 H, Calcium 7.9 L, Phosphorus 6.6 H, Magnesium 2.7 H, Total Bilirubin 0.40, AST 26, ALT 35, Alkaline Phosphatase 70, Total Protein 5.4 L, Albumin 1.8 L, Globulin 3.6, Albumin/Globulin Ratio 0.5 L 08/22/23 05:26: POC Glucose 155 H Micro: Microbiology 08/12/23 12:29 Wash - Right Middle Lobe Virus Culture - Final 08/20/23 10:15 Stool Stool Occult Blood (CRISTIAN) - Final Occult Blood Positive 08/17/23 09:00 Blood Culture (Wb) - Pic Blood Culture - Preliminary Stenotrophomonas maltophilia 08/17/23 09:15 Sputum, Induced/Lukens Gram Stain - Final 08/17/23 09:15 Sputum, Induced/Lukens Respiratory Culture - Preliminary Stenotrophomonas maltophilia 08/17/23 09:00 Blood Culture (Wb) - Right Wrist Blood Culture - Preliminary No growth in 48 hours. 08/11/23 15:14 Fluid - Pleural (Lung) Gram Stain - Final 08/11/23 15:14 Fluid - Pleural (Lung) Body Fluid Culture - Final Culture exhibits no growth. 08/11/23 15:14 Fluid - Pleural (Lung) Anaerobic Culture - Final No growth in 5 days. 08/12/23 12:29 Wash - Bronchial Gram Stain - Final 08/12/23 12:29 Wash - Bronchial Respiratory Culture - Final Stenotrophomonas maltophilia 08/11/23 09:59 Sputum, Induced/Lukens Gram Stain - Final 08/11/23 09:59 Sputum, Induced/Lukens Respiratory Culture - Final Stenotrophomonas maltophilia 08/12/23 10:49 Nasal Secretion SARS-CoV-2 Antigen (Rapid) - Final 08/04/23 00:00 Sputum, Expectorated/Coughed Gram Stain - Final 08/04/23 00:00 Sputum, Expectorated/Coughed Respiratory Culture - Final 08/03/23 21:57 Urine, Random Legionella Antigen - Final 08/03/23 21:57 Urine, Random Streptococcus pneumoniae Antigen (M - Final 08/03/23 18:30 Mucosa - Nose SARS-CoV-2, Influenza & RSV (PCR) - Final ABG Data ABG results: ABG 08/11/23 10:13 Specimen Type ART Sample Site L Radial pH 7.47 H Bicarbonate Actual 36.1 H Total CO2 38 Base Excess 13 H O2 Saturation 99 O2 % 50.0 ABG pCO2 49.8 H ABG pO2 132 H Abhijit Test Positive Respiration Rate 14 O2 Delivery Device Adult Vent Vent Mode AC Tidal Volume 500.0 POC PEEP 10 Radiography Diagnostic Testing: Radiology Impression Chest X-Ray 08/16/23 06:26 IMPRESSION: Stable exam. Electronically Signed: Mehdi Ernandez MD at 8:26 EDT , Physical Exam Const alert Constitutional Narrative: Intubated, sedated and mechanically ventilated. No ventilator dyssynchrony noted. HEENT normocephalic and head/scalp atraumatic Mouth: endotracheal tube in place and OG tube in place Eyes PERRL, EOMs intact bilaterally and conjunctivae normal Neck supple General: trachea midline Chest inspection of chest normal Resp Resp Narrative: Coarse mechanical breath sounds. Auscultation: diminished lung sounds; Negative for rales, rhonchi or wheezes Cardio regular rate, regular rhythm, S1 normal heart sound and S2 normal heart sound GI normal to inspection, nondistended, normoactive bowel sounds Extremity no clubbing, cyanosis or edema Skin no rashes or lesions noted Neuro Neuro Narrative: Alert and able to follow simple commands. Sensorium / Orientation: sedated on vent Charges/Coding Procedures Hospitalists Procedures: [id number] Critical Care 1st Hr
[2023-08-22] MEDS: dexMEDEtomidine 400 MCG in 0.9% Normal Saline (100mL Bag) 96 ML 11.5 MCG CONT INF (07:27)
[2023-08-22] MEDS: QUEtiapine 25 MG Tablet PO ×2 (09:57→21:04)
[2023-08-22] MEDS: Insulin Glargine-YFGN 100 UNIT/ML Pen 26 UNIT SC (09:57)
[2023-08-22] MEDS: Pantoprazole Sodium 40 MG in 0.9% Normal Saline (100mL MB+) 100 ML 330 MG IV ×2 (09:57→21:12)
[2023-08-22] MEDS: [UNRECOGNIZED DRUG - OTHER] PO ×2 (09:57→21:05)
[2023-08-22] MEDS: MINOCYCLINE HCL PO ×2 (09:57→21:05)
[2023-08-22] MEDS: CHLORHEXIDINE GLUC 2% CLOTH 1 EACH TOWELETTE TOPICAL (09:58)
[2023-08-22] MEDS: Chlorhexidine 15 ML PO ×2 (09:58→21:51)
[2023-08-22] MEDS: CEFTAZIDIME IV (11:50)
[2023-08-22] MEDS: NORMAL SALINE 0.9% IV (11:50)
--- NOTE | 2023-08-22 12:07 | NUR.TO.PHY ---
Planned dialysis for today. However, pt systolic blood pressures were in the 70s systolic prior to initiation. This RN spoke with ICU primary RN, who stated pt has been hypotensive s/p precedex. Precedex was stopped, however pt remained hypotensive. This RN discussed with irrigator gravity flow, Dr. Terry, who stated to r/s dialysis for the following day. Today's dialysis orders were discontinued & pt will receive next dialysis on 08/23/23.
[2023-08-22] MEDS: LACTATED RINGERS 500 ML 999 ML IV (12:22)
[2023-08-22 12:48] LABS: Bedside Glucose 110 mg/dL (74-106)
--- NOTE | 2023-08-22 13:41 | CASEMGMT ---
Social Work SW spoke w/pt's , offered support. She states they have been for 43 years. SW remains available for support to . Pt may be getting peg tube today. SHELTON [place]
--- NOTE | 2023-08-22 14:40 | PN.ID_ITS ---
Physical Exam Narrative On vent, tracking, no fever Const no apparent distress Resp Auscultation: rhonchi Cardio regular rate and regular rhythm GI soft to palpation, non-tender and non-distended Skin no rashes or lesions noted ID ID: Route of nutrition/ use of supplements: [] Nutritional Intake: [] IV Site: [] Saravia Catheter: [] Assessment & Plan Assessment/Plan (1) Bacteremia due to Gram-negative bacteria: PLAN: Steno bacteremia, resp source. Sputum steno now R to bactrim and levaquin. Cont iv ceftazidime and po minocycline. Lab has sent out for add itional susceptibility testing. Wbc improved. Will follow (2) Pulmonary embolus, right: (3) Acute hypoxic respiratory failure: (4) TRENA (acute kidney injury): (5) Chronic kidney disease, stage 3b: (6) Pneumonia: QUALIFIERS: Pneumonia type: due to unspecified organism
--- NOTE | 2023-08-22 14:58 | PN.RENAL_ITS ---
Subjective Subjective Resting in bed. No overnight events. at bedside. Objective Data Objective Data Vital Signs: Vital Signs Temp Pulse Resp BP Pulse Ox O2 Del Method O2 Flow Rate 97.7 F L 111 H 20 H 98/72 91 Mechanical Ventilator 50 08/22/23 13:00 08/22/23 14:00 08/22/23 14:00 08/22/23 14:00 08/22/23 14:00 08/22/23 14:00 08/20/23 17:00 FiO2 45 08/22/23 14:00 Oxygen Flow Rate (L/min) 50 Oxygen Delivery Method Mechanical Ventilator Weight: 92.3 kg Body Mass Index (BMI) 32.8 Intake & Output: Intake and Output for Last 24 Hours 08/20/23 08/21/23 08/22/23 23:59 23:59 23:59 Intake Total 1875.82 / 1953.82 2016.00 / 2094.50 1734.03 / 1734.03 Output Total 575 / 750 475 / 475 250 / 250 Balance 1300.82 / 1203.82 1541.00 / 1619.50 1484.03 / 1484.03 Lab / Micro Data 08/22/23 03:50 08/22/23 03:50 Labs: Laboratory Results - last 24 hr 08/21/23 15:00: Hgb 8.8 L 08/21/23 17:08: POC Glucose 137 H 08/21/23 22:15: Hgb 8.6 L, POC Glucose 132 H 08/22/23 03:50: WBC 12.1 H, RBC 3.30 L, Hgb 8.7 L, Hct 28.2 L, MCV 85.5, MCH 26.4 L, MCHC 30.9 L, RDW Std Deviation 56.2 H, RDW Coeff of Raghavendra 18.6 H, Plt Count 198, MPV 12.7 H, Immature Gran % (Auto) 1.800 H, Neut % (Auto) 85.7 H, L ymph % (Auto) 4.2 L, [place] % (Auto) 6.4, Eos % (Auto) 1.7, Baso % (Auto) 0.2, A bsolute Neuts (auto) 10.4 H, Absolute Lymphs (auto) 0.51 L, Nucleated RBC % 0, S odium 135 L, Potassium 3.9, Chloride 102, Carbon Dioxide 21.0, Anion Gap 12, BUN 113 H*, Creatinine 3.14 H, Estim Creat Clear Calc 22.87, Est GFR (MDRD) Af Amer 25 L, Est GFR (MDRD) Non-Af 21 L, BUN/Creatinine Ratio 36.0 H, Glucose 170 H, C alcium 7.9 L, Phosphorus 6.6 H, Magnesium 2.7 H, Total Bilirubin 0.40, AST 26, ALT 35, Alkaline Phosphatase 70, Total Protein 5.4 L, Albumin 1.8 L, Globulin 3.6, Albumin/Globulin Ratio 0.5 L 08/22/23 05:26: POC Glucose 155 H 08/22/23 12:30: POC Glucose 110 H Micro: Microbiology 08/17/23 09:00 Blood Culture (Wb) - Pic Blood Culture - Final Stenotrophomonas maltophilia 08/17/23 09:00 Blood Culture (Wb) - Right Wrist Blood Culture - Final No growth in 5 days. 08/12/23 12:29 Wash - Right Middle Lobe Virus Culture - Final 08/20/23 10:15 Stool Stool Occult Blood (CRISTIAN) - Final Occult Blood Positive 08/17/23 09:15 Sputum, Induced/Lukens Gram Stain - Final 08/17/23 09:15 Sputum, Induced/Lukens Respiratory Culture - Preliminary Stenotrophomonas maltophilia 08/11/23 15:14 Fluid - Pleural (Lung) Gram Stain - Final 08/11/23 15:14 Fluid - Pleural (Lung) Body Fluid Culture - Final Culture exhibits no growth. 08/11/23 15:14 Fluid - Pleural (Lung) Anaerobic Culture - Final No growth in 5 days. 08/12/23 12:29 Wash - Bronchial Gram Stain - Final 08/12/23 12:29 Wash - Bronchial Respiratory Culture - Final Stenotrophomonas maltophilia 08/11/23 09:59 Sputum, Induced/Lukens Gram Stain - Final 08/11/23 09:59 Sputum, Induced/Lukens Respiratory Culture - Final Stenotrophomonas maltophilia 08/12/23 10:49 Nasal Secretion SARS-CoV-2 Antigen (Rapid) - Final 08/04/23 00:00 Sputum, Expectorated/Coughed Gram Stain - Final 08/04/23 00:00 Sputum, Expectorated/Coughed Respiratory Culture - Final 08/03/23 21:57 Urine, Random Legionella Antigen - Final 08/03/23 21:57 Urine, Random Streptococcus pneumoniae Antigen (M - Final 08/03/23 18:30 Mucosa - Nose SARS-CoV-2, Influenza & RSV (PCR) - Final Physical Exam Narrative On vent support No obvious distress S1, S2, RRR Lung sounds clear anteriorly Abdomen soft No edema Indwelling Saravia with urine in bag Non-tunneled temporary HD catheter right IJ dressing clean, dry and intact Assessment & Plan Assessment/Plan (1) TRENA (acute kidney injury): PLAN: 72-year-old male with past medical history significant for 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 Terry (after surgery baseline creatinine around 2.0), presented emergency room on 08/02 with complaints of shortness of breath with exertion, admitted for non-STEMI, suspected pneumonia. - TRENA superimposed on CKD; TRENA likely from ischemic ATN. Renal serologies p- ANCA, c-ANCA, double-stranded DNA, glomerular basement membrane antibody, C3 all normal. C4 complement slightly elevated at 46. Patient was initiated on hemodialysis 08/11 (serum creatinine peaked 4.98 on 08/11) as renal function was worsening and urine output declining. Last week patient required hemodialysis but had not been tolerating much fluid removal with hemodialysis. Last hemodialysis was 08/18. Yesterday creatinine 3.13, today creatinine 3.14. Urine output has slowly picked up. Potassium and acid-base acceptable therefore we will hold off on hemodialysis for today. Will continue to monitor for renal recovery. Blood pressure is low today after being taken off Precedex. Slight improvement in blood pressures this afternoon. Will evaluate for hemodialysis needs tomorrow, labs ordered, may start diuretics tomorrow if further improvement in blood pressures. -Bacteremia due to gram-negative bacteria/ stenotrophomonas; antibiotics per ID, currently IV ceftazidime and p.o. minocycline
--- NOTE | 2023-08-22 15:01 | PN_ITS ---
Subjective Subjective Patient seen and examined. He remains intubated. He failed spontaneous breathing trial today, and so remains intubated. Unable to do comprehensive review of systems as he remains intubated. Objective Data Objective Data Vital Signs: Vital Signs Temp Pulse Resp BP Pulse Ox O2 Del Method O2 Flow Rate 97.7 F L 111 H 20 H 98/72 91 Mechanical Ventilator 50 08/22/23 13:00 08/22/23 14:00 08/22/23 14:00 08/22/23 14:00 08/22/23 14:00 08/22/23 14:00 08/20/23 17:00 FiO2 45 08/22/23 14:00 Oxygen Flow Rate (L/min) 50 Oxygen Delivery Method Mechanical Ventilator Weight: 203 lb 7.787 oz Body Mass Index (BMI) 32.8 Intake & Output: Intake and Output for Last 24 Hours 08/20/23 08/21/23 08/22/23 23:59 23:59 23:59 Intake Total 1875.82 / 1953.82 2016.00 / 2094.50 1734.03 / 1734.03 Output Total 575 / 750 475 / 475 250 / 250 Balance 1300.82 / 1203.82 1541.00 / 1619.50 1484.03 / 1484.03 Lab / Micro Data 08/22/23 03:50 08/22/23 03:50 Labs: Laboratory Results - last 24 hr 08/21/23 15:00: Hgb 8.8 L 08/21/23 17:08: POC Glucose 137 H 08/21/23 22:15: Hgb 8.6 L, POC Glucose 132 H 08/22/23 03:50: WBC 12.1 H, RBC 3.30 L, Hgb 8.7 L, Hct 28.2 L, MCV 85.5, MCH 26.4 L, MCHC 30.9 L, RDW Std Deviation 56.2 H, RDW Coeff of Raghavendra 18.6 H, Plt Count 198, MPV 12.7 H, Immature Gran % (Auto) 1.800 H, Neut % (Auto) 85.7 H, Lymph % (Auto) 4.2 L, [place] % (Auto) 6.4, Eos % (Auto) 1.7, Baso % (Auto) 0.2, Absolute Neuts (auto) 10.4 H, Absolute Lymphs (auto) 0.51 L, Nucleated RBC % 0, Sodium 135 L, Potassium 3.9, Chloride 102, Carbon Dioxide 21.0, Anion Gap 12, BUN 113 H*, Creatinine 3.14 H, Estim Creat Clear Calc 22.87, Est GFR (MDRD) Af Amer 25 L, Est GFR (MDRD) Non-Af 21 L, BUN/Creatinine Ratio 36.0 H, Glucose 170 H, Calcium 7.9 L, Phosphorus 6.6 H, Magnesium 2.7 H, Total Bilirubin 0.40, AST 26, ALT 35, Alkaline Phosphatase 70, Total Protein 5.4 L, Albumin 1.8 L, G lobulin 3.6, Albumin/Globulin Ratio 0.5 L 08/22/23 05:26: POC Glucose 155 H 08/22/23 12:30: POC Glucose 110 H Micro: Microbiology 08/17/23 09:00 Blood Culture (Wb) - Pic Blood Culture - Final Stenotrophomonas maltophilia 08/17/23 09:00 Blood Culture (Wb) - Right Wrist Blood Culture - Final No growth in 5 days. 08/12/23 12:29 Wash - Right Middle Lobe Virus Culture - Final 08/20/23 10:15 Stool Stool Occult Blood (CRISTIAN) - Final Occult Blood Positive 08/17/23 09:15 Sputum, Induced/Lukens Gram Stain - Final 08/17/23 09:15 Sputum, Induced/Lukens Respiratory Culture - Preliminary Stenotrophomonas maltophilia 08/11/23 15:14 Fluid - Pleural (Lung) Gram Stain - Final 08/11/23 15:14 Fluid - Pleural (Lung) Body Fluid Culture - Final Culture exhibits no growth. 08/11/23 15:14 Fluid - Pleural (Lung) Anaerobic Culture - Final No growth in 5 days. 08/12/23 12:29 Wash - Bronchial Gram Stain - Final 08/12/23 12:29 Wash - Bronchial Respiratory Culture - Final Stenotrophomonas maltophilia 08/11/23 09:59 Sputum, Induced/Lukens Gram Stain - Final 08/11/23 09:59 Sputum, Induced/Lukens Respiratory Culture - Final Stenotrophomonas maltophilia 08/12/23 10:49 Nasal Secretion SARS-CoV-2 Antigen (Rapid) - Final 08/04/23 00:00 Sputum, Expectorated/Coughed Gram Stain - Final 08/04/23 00:00 Sputum, Expectorated/Coughed Respiratory Culture - Final 08/03/23 21:57 Urine, Random Legionella Antigen - Final 08/03/23 21:57 Urine, Random Streptococcus pneumoniae Antigen (M - Final 08/03/23 18:30 Mucosa - Nose SARS-CoV-2, Influenza & RSV (PCR) - Final Physical Exam Const alert Constitutional Narrative: intubated, sedated, RASS score is 0 HEENT normocephalic, moist oral mucous membranes and oropharynx normal Neck no lymphadenopathy and supple Lymph Lymphatic: no lymphadenopathy noted and no lymphedema noted Resp Resp Narrative: remains intubated, moderately diminished breath sounds bilaterally, no wheezes or crackles. On 3L of oxygen Cardio regular rate, regular rhythm, S1 normal heart sound, S2 normal heart sound and no murmurs GI normal to inspection, nondistended, normoactive bowel sounds, soft to palpation and non-tender Extremity General Extremity: no tenderness to palpation of joints or extremities Skin General Skin Exam: no breakdown Neuro Neuro Narrative: flat affect, intubated, RASS score is 0 Motor Exam: general weakness Assessment & Plan Assessment/Plan (1) Pulmonary embolus, right: (2) Bacteremia due to Gram-negative bacteria: (3) Acute hypoxic respiratory failure: (4) Pleural effusion, right: PLAN: Plan #Acute hypoxic respiratory failure * multifactorial; thought to be due to nonstemi, pneumonia, PE and volume overload * CXR was consistent with ARDS * being diuresed with IV lasix. * on ceftazidime and oral minocycline. * critical care on board * being diuresed today to see if that will help * # Pneumonia due to multidrug-resistant stenotrophomonas * Blood cultures were also positive for this. It is resistant to Bactrim and Levaquin. Now on ceftazidime and minocycline. ID on board. * #Non-STEMI: * Had cardiac cath on 08/08/2023 which showed normal left main coronary artery and the first diagonal artery with 90% stenosis in first obtuse marginal branch noting 70% stenosis and a totally occluded RCA with [id number] collaterals. * on aspirin and statin. * # Hyponatremia: #Acute heart failure preserved ejection fraction: being diuresed with IV lasix #TRENA on CKD stage IIIb: Nephrology on board. Currently on dialysis. #History of PE: Developed GI bleed after being started on blood thinners. Has IVC filter in place. #Right pleural effusion: S/p right thoracentesis with removal of thousand 20 cc of fluid. Will monitor. #Acute on chronic anemia due to GI bleed: Aspirin on hold. On Protonix. #Hypertension: On chlorthalidone and amlodipine. These are currently on hold. Metoprolol being continued. Will monitor. #Invasive urothelial carcinoma: S/p transurethral resection of the tumor. Follow-up with urology on outpatient basis. DVT prophylaxis: IVC filter in place. On PPI. Charges/Coding Visit Charges Inpatient E&M: 70343 Subs Hosp L3
--- NOTE | 2023-08-22 16:58 | PN.GI_ITS ---
Subjective Subjective Patient is still intubated sedated on the vent. He is almost 21 days in ICU. Objective Data Objective Data Vital Signs: Vital Signs Temp Pulse Resp BP Pulse Ox O2 Del Method O2 Flow Rate 97.7 F L 109 H 22 H 100/70 91 Mechanical Ventilator 50 08/22/23 13:00 08/22/23 16:00 08/22/23 16:00 08/22/23 16:00 08/22/23 16:00 08/22/23 16:00 08/20/23 17:00 FiO2 45 08/22/23 16:00 Oxygen Flow Rate (L/min) 50 Oxygen Delivery Method Mechanical Ventilator Weight: 203 lb 7.787 oz Body Mass Index (BMI) 32.8 Intake & Output: Intake and Output for Last 24 Hours 08/20/23 08/21/23 08/22/23 23:59 23:59 23:59 Intake Total 1875.82 / 1953.82 2016.00 / 2094.50 1756.53 / 1756.53 Output Total 575 / 750 475 / 475 250 / 250 Balance 1300.82 / 1203.82 1541.00 / 1619.50 1506.53 / 1506.53 Lab / Micro Data 08/22/23 03:50 08/22/23 03:50 Labs: Laboratory Results - last 24 hr 08/21/23 17:08: POC Glucose 137 H 08/21/23 22:15: Hgb 8.6 L, POC Glucose 132 H 08/22/23 03:50: WBC 12.1 H, RBC 3.30 L, Hgb 8.7 L, Hct 28.2 L, MCV 85.5, MCH 26.4 L, MCHC 30.9 L, RDW Std Deviation 56.2 H, RDW Coeff of Raghavendra 18.6 H, Plt Count 198, MPV 12.7 H, Immature Gran % (Auto) 1.800 H, Neut % (Auto) 85.7 H, Lymph % (Auto) 4.2 L, [place] % (Auto) 6.4, Eos % (Auto) 1.7, Baso % (Auto) 0.2, Absolute Neuts (auto) 10.4 H, Absolute Lymphs (auto) 0.51 L, Nucleated RBC % 0, Sodium 135 L, Potassium 3.9, Chloride 102, Carbon Dioxide 21.0, Anion Gap 12, BUN 113 H*, Creatinine 3.14 H, Estim Creat Clear Calc 22.87, Est GFR (MDRD) Af Amer 25 L, Est GFR (MDRD) Non-Af 21 L, BUN/Creatinine Ratio 36.0 H, Glucose 170 H, Calcium 7.9 L, Phosphorus 6.6 H, Magnesium 2.7 H, Total Bilirubin 0.40, AST 26, ALT 35, Alkaline Phosphatase 70, Total Protein 5.4 L, Albumin 1.8 L, Globulin 3.6, Albumin/Globulin Ratio 0.5 L 08/22/23 05:26: POC Glucose 155 H 08/22/23 12:30: POC Glucose 110 H Micro: Microbiology 08/17/23 09:00 Blood Culture (Wb) - Pic Blood Culture - Final Stenotrophomonas maltophilia 08/17/23 09:00 Blood Culture (Wb) - Right Wrist Blood Culture - Final No growth in 5 days. 08/12/23 12:29 Wash - Right Middle Lobe Virus Culture - Final 08/20/23 10:15 Stool Stool Occult Blood (CRISTIAN) - Final Occult Blood Positive 08/17/23 09:15 Sputum, Induced/Lukens Gram Stain - Final 08/17/23 09:15 Sputum, Induced/Lukens Respiratory Culture - Preliminary Stenotrophomonas maltophilia 08/11/23 15:14 Fluid - Pleural (Lung) Gram Stain - Final 08/11/23 15:14 Fluid - Pleural (Lung) Body Fluid Culture - Final Culture exhibits no growth. 08/11/23 15:14 Fluid - Pleural (Lung) Anaerobic Culture - Final No growth in 5 days. 08/12/23 12:29 Wash - Bronchial Gram Stain - Final 08/12/23 12:29 Wash - Bronchial Respiratory Culture - Final Stenotrophomonas maltophilia 08/11/23 09:59 Sputum, Induced/Lukens Gram Stain - Final 08/11/23 09:59 Sputum, Induced/Lukens Respiratory Culture - Final Stenotrophomonas maltophilia 08/12/23 10:49 Nasal Secretion SARS-CoV-2 Antigen (Rapid) - Final 08/04/23 00:00 Sputum, Expectorated/Coughed Gram Stain - Final 08/04/23 00:00 Sputum, Expectorated/Coughed Respiratory Culture - Final 08/03/23 21:57 Urine, Random Legionella Antigen - Final 08/03/23 21:57 Urine, Random Streptococcus pneumoniae Antigen (M - Final 08/03/23 18:30 Mucosa - Nose SARS-CoV-2, Influenza & RSV (PCR) - Final Physical Exam Narrative On vent support No obvious distress S1, S2, RRR Lung sounds clear anteriorly Abdomen soft No edema Indwelling [place] with urine in bag Non-tunneled temporary HD catheter right IJ dressing clean, dry and intact Const alert Constitutional Narrative: intubated, sedated, RASS score is 0 HEENT normocephalic, moist oral mucous membranes and oropharynx normal Neck no lymphadenopathy and supple Lymph Lymphatic: no lymphadenopathy noted and no lymphedema noted Resp Resp Narrative: remains intubated, moderately diminished breath sounds bilaterally, no wheezes or crackles. On 3L of oxygen Cardio regular rate, regular rhythm, S1 normal heart sound, S2 normal heart sound and no murmurs GI normal to inspection, nondistended, normoactive bowel sounds, soft to palpation and non-tender Extremity General Extremity: no tenderness to palpation of joints or extremities Skin General Skin Exam: no breakdown Neuro Neuro Narrative: flat affect, intubated, RASS score is 0 Motor Exam: general weakness Assessment & Plan Assessment/Plan (1) Non-STEMI (non-ST elevated myocardial infarction): PLAN: Plan Patient is a 72-year-old gentleman admitted with shortness of breath was found to have elevated troponin consistent with acute non-STEMI treatment initiated per protocol admitted to the intensive care unit. Patient was found to be in acute respiratory failure resulting in the use of BiPAP Acute non-STEMI ? Patient admitted to the intensive care unit managed per protocol with heparin, aspirin added statin therapy and beta-blockers with consultation placed to cardiology. ? 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 Multifactorial including acute congestive heart failure, suspected PE as well as pneumonia patient placed on noninvasive ventilation Airvo and eventually intubated. Patient remains intubated and sedated and plans for likely tracheostomy tube. CT of the chest demonstrated bilateral pulmonary infiltrates involving both upper and lower lobes. Patient remains on broad-spectrum antibiotic therapy sputum cultures grew Stenotrophomonas maltophilia. Infectious disease was consulted. Chronic kidney disease stage IIIb ? patient kidney function did worsen necessitating initiation of hemodialysis by nephrology Need for alternative modes of feeding -Patient should undergo percutaneous endoscopic gastrostomy tube placement. He has been intubated and sedated for multiple days and unlikely to be able to be weaned off of the vent at this time. He will undergo tracheostomy tube placement. We can schedule him for PEG tube placement. When we placed the PEG tube we will assess his upper GI tract for any signs of acute on chronic blood loss anemia. He is fecal occult positive but I do not think he needs a colonoscopy at this time. Charges/Coding Visit Charges Inpatient E&M: 59053 [facility] Hosp L3
[2023-08-22 18:07] LABS: Bedside Glucose 140 mg/dL (74-106)
[2023-08-22] MEDS: Atorvastatin Calcium 40 MG Tablet GT (21:04)
[2023-08-22] MEDS: Metoprolol Tartrate 25 MG Tablet 12.5 MG GT (21:05)
[2023-08-22 21:09] LABS: CPK Total, Creatine Kinase 65 U/L (39-308); Triglycerides 179 mg/dL
[2023-08-22] MEDS: Propofol 10MG/Ml 1,000 MG/100 ML Bottle 5.5 MG CONT INF (21:25)
[2023-08-22 23:27] LABS: Bedside Glucose 128 mg/dL (74-106)
[2023-08-23] VITALS (49 sets, daily range): BP systolic 71–207; BP diastolic 51–77; PULSE 94–119; RESP 13–94; TEMP 35.9–36.9; O2SAT 86–100; BMI 33.1; BMI 33.0
[2023-08-23] MEDS: Vital AF 1.2 Cal Liquid 1,000 ML 60 ML GT (01:27)
[2023-08-23 05:34] LABS: Absolute Lymphocyte Count 0.66 X10^3/uL (0.83-4.51); Absolute Neutrophil Count 10.8 X10^3/uL (2.0-7.7); Basophil# 0.03 X10^3/uL; Basophil% 0.2 % (0-1); Eosinophil# 0.18 X10^3/uL; Eosinophils% 1.4 % (0-5); Hematocrit 28.1 % (40-54); Hemoglobin 8.7 g/dL (13.0-16.5); Lymphocyte # 0.66 X10^3/ul (0.83-4.51); Lymphocyte % 5.2 % (19-41); Mean Corpuscular Hgb 26.4 pg (27.0-32.0); Mean Corpuscular Volume 85.2 fL (80-94); Monocyte# 0.79 X10^3/uL; Monocyte% 6.2 % (0-10); NRBC Flagged by Analyzer 0 % (0-5); Neutrophil # 10.81 X10^3/uL (2.7-7.7); Neutrophil % 85.6 % (47-70); Platelet Count 218 K/mm3 (150-450); RBC Distribution Width CV 18.8 % (11.6-14.6); RBC Distribution Width SD 55.8 fl (35.1-43.9); White Blood Count 12.7 K/mm3 (4.4-11.0)
[2023-08-23 05:49] LABS: Bedside Glucose 175 mg/dL (74-106)
[2023-08-23 06:05] LABS: Anion Gap 13 (5-15); BUN 131 mg/dL (7-18); BUN/Creat Ratio 38.5 RATIO (10-20); Chloride 104 mmol/L (98-107); EST Glomerular Filtration Rate 19 mL/min (>60); Est Glom Filt Rate - Afr Amer 23 mL/min (>60); Estimated Creatinine Clearance 21.29 ml/min; Glucose 199 mg/dL (74-106); Potassium 3.9 mmol/L (3.5-5.1); Sodium Level 137 mmol/L (136-145)
[2023-08-23] MEDS: fentaNYL drip 100 ML 7.5 MCG CONT INF ×2 (06:20→17:56)
[2023-08-23] MEDS: Insulin Lispro 100 UNIT/ML INSULN.PEN SC ×3 (06:22→17:58)
[2023-08-23] MEDS: Menthol/Lanolin/Calamine/Znox 113 GM Tube 1 APPLIC TOPICAL ×3 (06:23→21:05)
--- NOTE | 2023-08-23 06:55 | PCM.PN.INT ---
Assessment & Plan Assessment/Plan (1) Acute hypoxic respiratory failure: (2) Pleural effusion, right: (3) TRENA (acute kidney injury): PLAN: Plan RECOMMENDATIONS: 1. Continue assist-control mode mechanical ventilation. Wean FiO2 and PEEP for saturations greater than 90%. 2. Continue current sedation regimen along with scheduled Seroquel. 3. Consultation placed to ENT for tracheostomy and GI for PEG tube placement. 4. Ongoing dialysis support per nephrology recommendations. Attempt fluid removal today. 5. Antimicrobials per ID recommendations. 6. Continue tube feeding as tolerated. 7. Continue appropriate GI prophylaxis. IMPRESSIONS: 1. Acute hypoxemic respiratory failure Initially, the patient's respiratory decompensation was felt to be a consequence of decompensated heart failure with preserved ejection fraction in the setting of an NSTEMI. However, underlying infection related to stenotrophomonas seems more likely. Subsequent attempts at volume optimization led to no significant improvement in his respiratory status. The patient was also diagnosed with a right lower extremity DVT and small nonocclusive right lower lobe PE. He was subsequently initiated on a weight-based heparin infusion. Ultimately, the patient continued to decompensate from a respiratory perspective and required intubation. Upon intubation, the patient was noted to have a significant amount of bleeding from his endotracheal tube, raising the suspicion for diffuse alveolar hemorrhage. Nevertheless, subsequent bronchoscopy was not consistent with DAH. The patient underwent thoracentesis as well from the right hemithorax which appeared to be transudative in nature. Cardiac catheterization has already been completed, for which medical therapy was recommended. The patient continues to have a tenuous respiratory status on the ventilator, requiring high FiO2, and continues to experience frequent bloody secretions/clots. Over concerns that the ongoing bloody secretions could be contributing to his persistent high oxygenation requirement, an IVC filter was placed on August 17 in order to facilitate discontinuation of the weight-based heparin infusion. The patient remains on antimicrobials under the discretion of infectious diseases due to a multidrug-resistant stenotrophomonas. Plan to continue to wean FiO2 and PEEP to maintain saturations at or above 90%. Unfortunately, the patient continues to fail spontaneous breathing trials. Accordingly, following discussion with the patient's , we will plan to consult ENT and GI for tracheostomy and PEG tube placement. 2. NSTEMI/acute decompensated heart failure with preserved ejection fraction Management per cardiology. 3. Acute on chronic kidney disease Nephrology is following. The patient's worsening renal insufficiency is likely multifactorial and related to prerenal etiology coupled with possible contrast nephropathy from recent catheterization and CTA chest. Continue ongoing dialysis support per nephrology recommendations. TIME: 32 minutes, independent of procedures, was spent addressing the patient's acute hypoxemic respiratory failure, NSTEMI, acute decompensated heart failure with preserved ejection fraction, stenotrophomonas pneumonia, acute on chronic kidney disease, review of all data and collaboration with care team. Subjective Subjective The patient was seen and examined at the bedside this morning. Events from the last 24 hours have been reviewed. The patient is currently afebrile and hemodynamically stable. He remains on assist-control mode mechanical ventilation with an FiO2 requirement of 55% and PEEP of 5. The patient once again failed his spontaneous breathing trial. The patient did not tolerate a transition to Precedex yesterday and was therefore restarted on propofol overnight. Hemoglobin is stable at 8.7 g/dL. I spoke personally with the ENT and gastroenterology this morning regarding proceeding with tracheostomy and PEG tube placement. I did call and speak with his and updated her on the tentative plan. She was in agreement to proceed with tracheostomy and PEG tube placement. Objective Data Objective Data The patient's most recent lab work, culture data and imaging studies have all been personally reviewed. Surface echocardiogram demonstrated normal LV size and function with an ejection fraction of 55%. Doppler study was positive for right-sided DVT. Sputum and blood cultures were positive for stenotrophomonas. Vital Signs: Vital Signs Temp Pulse Resp BP Pulse Ox O2 Del Method O2 Flow Rate 97.3 F L 118 H 17 109/65 92 Mechanical Ventilator 50 08/23/23 04:00 08/23/23 06:00 08/23/23 06:00 08/23/23 06:00 08/23/23 06:00 08/23/23 06:00 08/20/23 17:00 FiO2 55 08/23/23 06:00 Oxygen Flow Rate (L/min) 50 Oxygen Delivery Method Mechanical Ventilator Weight: 205 lb 4.006 oz Body Mass Index (BMI) 33.1 Intake & Output: Intake and Output for Last 24 Hours 08/21/23 08/22/23 08/23/23 23:59 23:59 23:59 Intake Total 2015.00 / 2093.50 3049.75 / 3065.25 215.89 / 215.89 Output Total 475 / 475 490 / 490 350 / 350 Balance 1541.00 / 1619.50 2559.75 / 2575.25 -134.11 / -134.11 Lab / Micro Data Attestation: I reviewed the patient's lab results. 08/23/23 05:20 08/23/23 05:20 Labs: Laboratory Results - last 24 hr 08/22/23 03:50: Total Creatine Kinase 65, Triglycerides 179 08/22/23 12:30: POC Glucose 110 H 08/22/23 17:40: POC Glucose 140 H 08/22/23 23:08: POC Glucose 128 H 08/23/23 05:20: WBC 12.7 H, RBC 3.30 L, Hgb 8.7 L, Hct 28.1 L, MCV 85.2, MCH 26.4 L, MCHC 31.0 L, RDW Std Deviation 55.8 H, RDW Coeff of Raghavendra 18.8 H, Plt Count 218, MPV 12.0, Immature Gran % (Auto) 1.400 H, Neut % (Auto) 85.6 H, Lymph % (Auto) 5.2 L, [place] % (Auto) 6.2, Eos % (Auto) 1.4, Baso % (Auto) 0.2, Absolute Neuts (auto) 10.8 H, Absolute Lymphs (auto) 0.66 L, Nucleated RBC % 0, Sodium 137, Potassium 3.9, Chloride 104, Carbon Dioxide 20.0 L, Anion Gap 13, BUN 131 H*, Creatinine 3.40 H, Estim Creat Clear Calc 21.29, Est GFR (MDRD) Af Amer 23 L, Est GFR (MDRD) Non-Af 19 L, BUN/Creatinine Ratio 38.5 H, Glucose 199 H, Calcium 8.0 L 08/23/23 05:30: POC Glucose 175 H Micro: Microbiology 08/17/23 09:00 Blood Culture (Wb) - Pic Blood Culture - Final Stenotrophomonas maltophilia 08/17/23 09:00 Blood Culture (Wb) - Right Wrist Blood Culture - Final No growth in 5 days. 08/12/23 12:29 Wash - Right Middle Lobe Virus Culture - Final 08/20/23 10:15 Stool Stool Occult Blood (CRISTIAN) - Final Occult Blood Positive 08/17/23 09:15 Sputum, Induced/Lukens Gram Stain - Final 08/17/23 09:15 Sputum, Induced/Lukens Respiratory Culture - Preliminary Stenotrophomonas maltophilia 08/11/23 15:14 Fluid - Pleural (Lung) Gram Stain - Final 08/11/23 15:14 Fluid - Pleural (Lung) Body Fluid Culture - Final Culture exhibits no growth. 08/11/23 15:14 Fluid - Pleural (Lung) Anaerobic Culture - Final No growth in 5 days. 08/12/23 12:29 Wash - Bronchial Gram Stain - Final 08/12/23 12:29 Wash - Bronchial Respiratory Culture - Final Stenotrophomonas maltophilia 08/11/23 09:59 Sputum, Induced/Lukens Gram Stain - Final 08/11/23 09:59 Sputum, Induced/Lukens Respiratory Culture - Final Stenotrophomonas maltophilia 08/12/23 10:49 Nasal Secretion SARS-CoV-2 Antigen (Rapid) - Final 08/04/23 00:00 Sputum, Expectorated/Coughed Gram Stain - Final 08/04/23 00:00 Sputum, Expectorated/Coughed Respiratory Culture - Final 08/03/23 21:57 Urine, Random Legionella Antigen - Final 08/03/23 21:57 Urine, Random Streptococcus pneumoniae Antigen (M - Final 08/03/23 18:30 Mucosa - Nose SARS-CoV-2, Influenza & RSV (PCR) - Final ABG Data ABG results: ABG 08/11/23 10:13 Specimen Type ART Sample Site L Radial pH 7.47 H Bicarbonate Actual 36.1 H Total CO2 38 Base Excess 13 H O2 Saturation 99 O2 % 50.0 ABG pCO2 49.8 H ABG pO2 132 H Abhijit Test Positive Respiration Rate 14 O2 Delivery Device Adult Vent Vent Mode AC Tidal Volume 500.0 POC PEEP 10 Radiography Diagnostic Testing: Radiology Impression Chest X-Ray 08/16/23 06:26 IMPRESSION: Stable exam. Electronically Signed: Mehdi Ernandez MD at 8:26 EDT , Physical Exam Const alert Constitutional Narrative: Intubated, sedated and mechanically ventilated. No ventilator dyssynchrony noted. HEENT normocephalic and head/scalp atraumatic Mouth: endotracheal tube in place and OG tube in place Eyes PERRL, EOMs intact bilaterally and conjunctivae normal Neck supple General: trachea midline Chest inspection of chest normal Resp Resp Narrative: Coarse mechanical breath sounds. Auscultation: diminished lung sounds; Negative for rales, rhonchi or wheezes Cardio regular rate, regular rhythm, S1 normal heart sound and S2 normal heart sound GI normal to inspection, nondistended, normoactive bowel sounds Extremity no clubbing, cyanosis or edema Skin no rashes or lesions noted Neuro Neuro Narrative: Alert and able to follow simple commands. Sensorium / Orientation: sedated on vent Charges/Coding Procedures Hospitalists Procedures: 95672 Critical Care 1st Hr
--- NOTE | 2023-08-23 10:00 | PN_ITS ---
Subjective Subjective Patient seen and examined. His oxygen requirement had to be increased on the ventilator overnight and he had to be put back on the propofol and fentanyl drips. Was having dialysis at time of my review. His RASS score is 0. When asked how he felt he shook his head which indicated that he did not feel so good. Unable to do comprehensive review of systems as remains intubated. Objective Data Objective Data Vital Signs: Vital Signs Temp Pulse Resp BP Pulse Ox O2 Del Method O2 Flow Rate 96.8 F L 104 H 22 H 97/56 L 91 Mechanical Ventilator 50 08/23/23 07:45 08/23/23 09:14 08/23/23 09:14 08/23/23 09:14 08/23/23 09:14 08/23/23 09:14 08/20/23 17:00 FiO2 55 08/23/23 09:00 Oxygen Flow Rate (L/min) 50 Oxygen Delivery Method Mechanical Ventilator Weight: 205 lb 4.006 oz Body Mass Index (BMI) 33.1 Intake & Output: Intake and Output for Last 24 Hours 08/21/23 08/22/23 08/23/23 23:59 23:59 23:59 Intake Total 2016.00 / 4.50 3049.75 / 3065.25 296.65 / 296.65 Output Total 475 / 475 490 / 490 500 / 500 Balance 1541.00 / 1619.50 2559.75 / 2575.25 -203.35 / -203.35 Lab / Micro Data 08/23/23 05:20 08/23/23 05:20 Labs: Laboratory Results - last 24 hr 08/22/23 03:50: Total Creatine Kinase 65, Triglycerides 179 08/22/23 12:30: POC Glucose 110 H 08/22/23 17:40: POC Glucose 140 H 08/22/23 23:08: POC Glucose 128 H 08/23/23 05:20: WBC 12.7 H, RBC 3.30 L, Hgb 8.7 L, Hct 28.1 L, MCV 85.2, MCH 26.4 L, MCHC 31.0 L, RDW Std Deviation 55.8 H, RDW Coeff of Raghavendra 18.8 H, Plt Count 218, MPV 12.0, Immature Gran % (Auto) 1.400 H, Neut % (Auto) 85.6 H, Lymph % (Auto) 5.2 L, [place] % (Auto) 6.2, Eos % (Auto) 1.4, Baso % (Auto) 0.2, Absolute Neuts (auto) 10.8 H, Absolute Lymphs (auto) 0.66 L, Nucleated RBC % 0, Sodium 137, Potassium 3.9, Chloride 104, Carbon Dioxide 20.0 L, Anion Gap 13, BUN 131 H*, Creatinine 3.40 H, Estim Creat Clear Calc 21.29, Est GFR (MDRD) Af Amer 23 L , Est GFR (MDRD) Non-Af 19 L, BUN/Creatinine Ratio 38.5 H, Glucose 199 H, C alcium 8.0 L 08/23/23 05:30: POC Glucose 175 H Micro: Microbiology 08/17/23 09:00 Blood Culture (Wb) - Pic Blood Culture - Final Stenotrophomonas maltophilia 08/17/23 09:00 Blood Culture (Wb) - Right Wrist Blood Culture - Final No growth in 5 days. 08/12/23 12:29 Wash - Right Middle Lobe Virus Culture - Final 08/20/23 10:15 Stool Stool Occult Blood (CRISTIAN) - Final Occult Blood Positive 08/17/23 09:15 Sputum, Induced/Lukens Gram Stain - Final 08/17/23 09:15 Sputum, Induced/Lukens Respiratory Culture - Preliminary Stenotrophomonas maltophilia 08/11/23 15:14 Fluid - Pleural (Lung) Gram Stain - Final 08/11/23 15:14 Fluid - Pleural (Lung) Body Fluid Culture - Final Culture exhibits no growth. 08/11/23 15:14 Fluid - Pleural (Lung) Anaerobic Culture - Final No growth in 5 days. 08/12/23 12:29 Wash - Bronchial Gram Stain - Final 08/12/23 12:29 Wash - Bronchial Respiratory Culture - Final Stenotrophomonas maltophilia 08/11/23 09:59 Sputum, Induced/Lukens Gram Stain - Final 08/11/23 09:59 Sputum, Induced/Lukens Respiratory Culture - Final Stenotrophomonas maltophilia 08/12/23 10:49 Nasal Secretion SARS-CoV-2 Antigen (Rapid) - Final 08/04/23 00:00 Sputum, Expectorated/Coughed Gram Stain - Final 08/04/23 00:00 Sputum, Expectorated/Coughed Respiratory Culture - Final 08/03/23 21:57 Urine, Random Legionella Antigen - Final 08/03/23 21:57 Urine, Random Streptococcus pneumoniae Antigen (M - Final 08/03/23 18:30 Mucosa - Nose SARS-CoV-2, Influenza & RSV (PCR) - Final Physical Exam Narrative Const alert, oriented x3 and no apparent distress Constitutional Narrative: intubated, sedated, RASS score is 0 General Appearance: cooperative, well kempt and well developed Orientation / Consciousness: awake, oriented to person, oriented to place and oriented to time HEENT normocephalic, head/scalp atraumatic, moist oral mucous membranes and oropharynx normal Eyes PERRL, EOMs intact bilaterally and conjunctivae normal Neck no lymphadenopathy, supple, no JVD, thyroid normal and no carotid bruits Neck Narrative: General: trachea midline Lymph Lymphatic: no lymphadenopathy noted and no lymphedema noted Resp normal respiratory effort, no retractions, no use of accessory muscles and No clear to auscultation bilaterally Resp Narrative: remains intubated, moderately diminished breath sounds bilaterally, no wheezes or crackles. On 3L of oxygen Auscultation: rhonchi; Negative for rales or wheezes Cardio regular rate, regular rhythm, S1 normal heart sound, S2 normal heart sound, no murmurs, no rub, no gallops and no clicks GI normal to inspection, nondistended, normoactive bowel sounds, soft to palpation, non-tender and non-distended Extremity normal to inspection and no clubbing, cyanosis or edema Extremity Narrative: Right upper extremity PICC in place- General Extremity: no tenderness to palpation of joints or extremities Skin no rashes or lesions noted General Skin Exam: no breakdown Neuro Neuro Narrative: flat affect, intubated, RASS score is 0 Sensorium / Orientation: awake and alert Motor Exam: general weakness Psych Psych Narrative: flat affect, intubated, on the ventilator Mood & Affect: flat affect Assessment & Plan Assessment/Plan (1) Pulmonary embolus, right: (2) Bacteremia due to Gram-negative bacteria: (3) Acute hypoxic respiratory failure: (4) Pleural effusion, right: PLAN: Plan #Acute hypoxic respiratory failure * multifactorial; thought to be due to nonstemi, pneumonia, PE and volume overload * CXR was consistent with ARDS * being diuresed with IV lasix. * oxygen requirements increased overnight and he had to be put on propofol and fentanyl. * remains on ceftazidime and oral minocycline. * critical care on board * being diuresed to see if that will help * # Pneumonia due to multidrug-resistant stenotrophomonas * Blood cultures were also positive for this. It is resistant to Bactrim and Levaquin. Now on ceftazidime and minocycline. ID on board. * #Non-STEMI: * Had cardiac cath on 08/08/2023 which showed normal left main coronary artery and the first diagonal artery with 90% stenosis in first obtuse marginal branch noting 70% stenosis and a totally occluded RCA with [id number] collaterals. * on aspirin and statin. * # Hyponatremia: resolved. Na is 137 #Acute heart failure preserved ejection fraction: being diuresed with IV lasix #TRENA on CKD stage IIIb: Nephrology on board. Currently on dialysis. Having dialysis today #History of PE: Developed GI bleed after being started on blood thinners. Has IVC filter in place. #Right pleural effusion: S/p right thoracentesis with removal of ~1000 cc of fluid. Will monitor. #Acute on chronic anemia due to GI bleed: Aspirin on hold. On Protonix. #Hypertension: On chlorthalidone and amlodipine. These are currently on hold. Metoprolol being continued. Will monitor. #Invasive urothelial carcinoma: S/p transurethral resection of the tumor. Follow-up with urology on outpatient basis. DVT prophylaxis: IVC filter in place. On PPI. Charges/Coding Visit Charges Inpatient E&M: 97110 [facility] Hosp L3
--- NOTE | 2023-08-23 10:22 | PN.RENAL_ITS ---
Subjective Subjective Seen and examined while on dialysis. Tolerating treatment well. Alert and oriented. at bedside. No overnight events. Objective Data Objective Data Vital Signs: Vital Signs Temp Pulse Resp BP Pulse Ox O2 Del Method O2 Flow Rate 96.8 F L 110 H 16 121/70 H 95 Mechanical Ventilator 50 08/23/23 07:45 08/23/23 10:01 08/23/23 10:01 08/23/23 10:01 08/23/23 10:01 08/23/23 10:01 08/20/23 17:00 FiO2 55 08/23/23 09:21 Oxygen Flow Rate (L/min) 50 Oxygen Delivery Method Mechanical Ventilator Weight: 93.1 kg Body Mass Index (BMI) 33.1 Intake & Output: Intake and Output for Last 24 Hours 08/21/23 08/22/23 08/23/23 23:59 23:59 23:59 Intake Total 2016.00 / 2094.50 3049.75 / 3065.25 296.65 / 296.65 Output Total 475 / 475 490 / 490 500 / 500 Balance 1541.00 / 1619.50 2559.75 / 2575.25 -203.35 / -203.35 Lab / Micro Data 08/23/23 05:20 08/23/23 05:20 Labs: Laboratory Results - last 24 hr 08/22/23 03:50: Total Creatine Kinase 65, Triglycerides 179 08/22/23 12:30: POC Glucose 110 H 08/22/23 17:40: POC Glucose 140 H 08/22/23 23:08: POC Glucose 128 H 08/23/23 05:20: WBC 12.7 H, RBC 3.30 L, Hgb 8.7 L, Hct 28.1 L, MCV 85.2, MCH 26.4 L, MCHC 31.0 L, RDW Std Deviation 55.8 H, RDW Coeff of Raghavendra 18.8 H, Plt Count 218, MPV 12.0, Immature Gran % (Auto) 1.400 H, Neut % (Auto) 85.6 H, Lymph % (Auto) 5.2 L, [place] % (Auto) 6.2, Eos % (Auto) 1.4, Baso % (Auto) 0.2, Absolute Neuts (auto) 10.8 H, Absolute Lymphs (auto) 0.66 L, Nucleated RBC % 0, Sodium 137, Potassium 3.9, Chloride 104, Carbon Dioxide 20.0 L, Anion Gap 13, BUN 131 H*, Creatinine 3.40 H, Estim Creat Clear Calc 21.29, Est GFR (MDRD) Af Amer 23 L , Est GFR (MDRD) Non-Af 19 L, BUN/Creatinine Ratio 38.5 H, Glucose 199 H, C alcium 8.0 L 08/23/23 05:30: POC Glucose 175 H Micro: Microbiology 08/17/23 09:00 Blood Culture (Wb) - Pic Blood Culture - Final Stenotrophomonas maltophilia 08/17/23 09:00 Blood Culture (Wb) - Right Wrist Blood Culture - Final No growth in 5 days. 08/12/23 12:29 Wash - Right Middle Lobe Virus Culture - Final 08/20/23 10:15 Stool Stool Occult Blood (CRISTIAN) - Final Occult Blood Positive 08/17/23 09:15 Sputum, Induced/Lukens Gram Stain - Final 08/17/23 09:15 Sputum, Induced/Lukens Respiratory Culture - Preliminary Stenotrophomonas maltophilia 08/11/23 15:14 Fluid - Pleural (Lung) Gram Stain - Final 08/11/23 15:14 Fluid - Pleural (Lung) Body Fluid Culture - Final Culture exhibits no growth. 08/11/23 15:14 Fluid - Pleural (Lung) Anaerobic Culture - Final No growth in 5 days. 08/12/23 12:29 Wash - Bronchial Gram Stain - Final 08/12/23 12:29 Wash - Bronchial Respiratory Culture - Final Stenotrophomonas maltophilia 08/11/23 09:59 Sputum, Induced/Lukens Gram Stain - Final 08/11/23 09:59 Sputum, Induced/Lukens Respiratory Culture - Final Stenotrophomonas maltophilia 08/12/23 10:49 Nasal Secretion SARS-CoV-2 Antigen (Rapid) - Final 08/04/23 00:00 Sputum, Expectorated/Coughed Gram Stain - Final 08/04/23 00:00 Sputum, Expectorated/Coughed Respiratory Culture - Final 08/03/23 21:57 Urine, Random Legionella Antigen - Final 08/03/23 21:57 Urine, Random Streptococcus pneumoniae Antigen (M - Final 08/03/23 18:30 Mucosa - Nose SARS-CoV-2, Influenza & RSV (PCR) - Final Physical Exam Narrative Alert and oriented, no apparent distress S1, S2, RRR Lung sounds diminished posterior bases Abdomen soft No edema Indwelling [place] clear yellow urine in bag Non-tunneled right IJ temporary HD catheter accessed for hemodialysis Assessment & Plan Assessment/Plan (1) TRENA (acute kidney injury): PLAN: 72-year-old male with past medical history significant for 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 Terry (after surgery baseline creatinine around 2.0), presented emergency room on 08/02 with complaints of shortness of breath with exertion, admitted for non-STEMI, suspected pneumonia. - TRENA superimposed on CKD; TRENA likely from ischemic ATN. Renal serologies p- ANCA, c-ANCA, double-stranded DNA, glomerular basement membrane antibody, C3 all normal. C4 complement slightly elevated at 46. Patient was initiated on hemodialysis 08/11 (serum creatinine peaked 4.98 on 08/11) as renal function was worsening and urine output declining. Last dialysis was 08/18. Patient significantly hypotensive yesterday therefore we did not dialyze. Today creatinine up to 3.4, BUN 131 and improvement in blood pressures therefore we will plan for dialysis today over 3.5 hours and attempt around 1.5 L fluid removal as patient/blood pressure tolerates. Continue to monitor for renal recovery. -Bacteremia due to gram-negative bacteria/ stenotrophomonas; antibiotics per ID, currently IV ceftazidime and p.o. minocycline -ENT and GI consulted for tracheostomy and PEG tube placement -If patient remains dialysis dependent will need tunneled HD catheter placed before hospital discharge -Discussed nephrology plan with patient and his .
--- NOTE | 2023-08-23 10:27 | PCM.PN.ID ---
Physical Exam Narrative Awake on vent, feeling better, no fever Const alert and no apparent distress Resp Auscultation: rhonchi Cardio regular rate and regular rhythm GI soft to palpation, non-tender and non-distended Skin no rashes or lesions noted ID ID: Route of nutrition/ use of supplements: [] Nutritional Intake: [] IV Site: [] Saravia Catheter: [] Assessment & Plan Assessment/Plan (1) Bacteremia due to Gram-negative bacteria: PLAN: Steno bacteremia, resp source. Sputum steno now R to bactrim and levaquin. Cont iv ceftazidime and po minocycline. Lab has sent out for additional susceptibility testing. Wbc improved. Will follow (2) Pulmonary embolus, right: (3) Acute hypoxic respiratory failure: (4) TRENA (acute kidney injury): (5) Chronic kidney disease, stage 3b: (6) Pneumonia: QUALIFIERS: Pneumonia type: due to unspecified organism
[2023-08-23] MEDS: 0.9% Normal Saline 1,000 ML IV.SOLN. 1000 ML OPERA.SITE (10:53)
[2023-08-23] MEDS: 0.9% Saline Lock 10 ML Syringe IV (10:54)
[2023-08-23] MEDS: Heparin 10,000 UNITS/10 ML Vial IV (10:54)
[2023-08-23] MEDS: Pantoprazole Sodium 40 MG in 0.9% Normal Saline (100mL MB+) 100 ML 330 MG IV ×2 (11:42→21:22)
[2023-08-23] MEDS: NORMAL SALINE 0.9% IV (11:43)
[2023-08-23] MEDS: CHLORHEXIDINE GLUC 2% CLOTH 1 EACH TOWELETTE TOPICAL (11:43)
[2023-08-23] MEDS: CEFTAZIDIME IV (11:43)
[2023-08-23] MEDS: Chlorhexidine 15 ML PO ×2 (11:43→21:04)
[2023-08-23] MEDS: Insulin Glargine-YFGN 100 UNIT/ML Pen 26 UNIT SC (11:44)
[2023-08-23] MEDS: Metoprolol Tartrate 25 MG Tablet 12.5 MG GT (11:44)
[2023-08-23] MEDS: QUEtiapine 25 MG Tablet PO ×2 (11:44→21:05)
[2023-08-23] MEDS: MINOCYCLINE HCL PO (11:50)
[2023-08-23] MEDS: [UNRECOGNIZED DRUG - OTHER] PO (11:50)
[2023-08-23 12:15] LABS: Bedside Glucose 162 mg/dL (74-106)
--- NOTE | 2023-08-23 14:15 | CON.PCM_ITS ---
Assessment & Plan Assessment/Plan (1) Acute hypoxic respiratory failure: PLAN: will plan on tracheostomy when OR schedule allows PLAN: Plan will plan on tracheostomy when OR schedule allows HPI Consult Data Date of Consult: 08/23/23 HPI Narrative Reason for Consultation: tracheostomy placement HPI Narrative: DINH SIN, is a 72 M who presents with respiratory failure. Please see detailed medical history that includes pneumonia / ARDS, right PE s/p IVC, right effusion s/p thoracentesis. Consulted for tracheostomy placement. [facility] Medical History Bladder disease Cancer Former smoker Prostate disease Wears glasses Home Medications ?Medication ?Instructions ?Recorded ?Last Taken ?Type amlodipine 5 mg tablet 5 mg PO DAILY BP 01/26/23 08/03/23 History chlorthalidone 25 mg tablet 25 mg PO DAILY BP 01/26/23 08/03/23 History Allergy/AdvReac Type Severity Reaction Status Date / Time No Known Allergies Allergy Verified 08/03/23 13:48 Surgical History History of cataract extraction with lens replacement (~2015) History of hernia repair (~1975) History of surgery of head (~1991) History of toe surgery History of transurethral resection of bladder tumor (TURBT) Social History Smoking Status: Former smoker Physical Exam Const alert Constitutional Narrative: alert and conversing appropriately when questioned. inquired about where the trach would be, was happy he didnt have to be transferred. General Appearance: cooperative Orientation / Consciousness: awake HEENT Face and Sinus: normal facial exam Mouth: oral and palatal mucosa normal Neck Neck Narrative: landmarks palpated Lab / Micro Data 08/23/23 05:20 08/23/23 05:20 Labs: Laboratory Results - last 24 hr 08/22/23 03:50: Total Creatine Kinase 65, Triglycerides 179 08/22/23 17:40: POC Glucose 140 H 08/22/23 23:08: POC Glucose 128 H 08/23/23 05:20: WBC 12.7 H, RBC 3.30 L, Hgb 8.7 L, Hct 28.1 L, MCV 85.2, MCH 26.4 L, MCHC 31.0 L, RDW Std Deviation 55.8 H, RDW Coeff of Raghavendra 18.8 H, Plt Count 218, MPV 12.0, Immature Gran % (Auto) 1.400 H, Neut % (Auto) 85.6 H, Lymph % (Auto) 5.2 L, [place] % (Auto) 6.2, Eos % (Auto) 1.4, Baso % (Auto) 0.2, Absolute Neuts (auto) 10.8 H, Absolute Lymphs (auto) 0.66 L, Nucleated RBC % 0, Sodium 137, Potassium 3.9, Chloride 104, Carbon Dioxide 20.0 L, Anion Gap 13, BUN 131 H*, Creatinine 3.40 H, Estim Creat Clear Calc 21.29, Est GFR (MDRD) Af Amer 23 L , Est GFR (MDRD) Non-Af 19 L, BUN/Creatinine Ratio 38.5 H, Glucose 199 H, C alcium 8.0 L 08/23/23 05:30: POC Glucose 175 H 08/23/23 11:52: POC Glucose 162 H
[2023-08-23] MEDS: Propofol 10MG/Ml 1,000 MG/100 ML Bottle 5.5 MG CONT INF (14:25)
[2023-08-23] MEDS: NEPRO TUBE FEED 1,000 ML 45 ML GT (14:28)
--- NOTE | 2023-08-23 16:23 | CASEMGMT ---
Dr. Munoz states that the pt will require LTACH services at time of DC from this ICU. This RN CM talked to the pt about pt disposition needs. Pt states that she is in aberrance to pt transfer to a LTACH once appropriate. Pt states that Dr. Munoz told told her that the pt two options are [facility] in [facility] and declines wanting a list of LTACH facilities. Pt states that she does not have a preference at this time and would like us to make the decision on where the pt is transferred to. This RN CM will continue to follow this case and make referral once appropriate. The pt is planned for a trach and PEG once the OR schedule allows this. WCTM.
--- NOTE | 2023-08-23 18:05 | EX.PCM.PN.GI ---
Subjective Subjective Patient did not do well with his weaning trial today. He will need a tracheostomy and a PEG tube. Objective Data Objective Data Vital Signs: Vital Signs Temp Pulse Resp BP Pulse Ox O2 Del Method O2 Flow Rate 98.4 F 106 H 18 91/61 92 Mechanical Ventilator 50 08/23/23 15:00 08/23/23 18:00 08/23/23 18:00 08/23/23 18:00 08/23/23 18:00 08/23/23 18:00 08/20/23 17:00 FiO2 55 08/23/23 18:00 Oxygen Flow Rate (L/min) 50 Oxygen Delivery Method Mechanical Ventilator Weight: 205 lb 4.006 oz Body Mass Index (BMI) 33.0 Intake & Output: Intake and Output for Last 24 Hours 08/21/23 08/22/23 08/23/23 23:59 23:59 23:59 Intake Total 2016.00 / 4.50 3049.75 / 3065.25 696.44 / 696.44 Output Total 475 / 475 490 / 490 2815 / 2815 Balance 1541.00 / 1619.50 2559.75 / 2575.25 -2118.56 / -2118.56 Lab / Micro Data 08/23/23 05:20 08/23/23 05:20 Labs: Laboratory Results - last 24 hr 08/22/23 03:50: Total Creatine Kinase 65, Triglycerides 179 08/22/23 17:40: POC Glucose 140 H 08/22/23 23:08: POC Glucose 128 H 08/23/23 05:20: WBC 12.7 H, RBC 3.30 L, Hgb 8.7 L, Hct 28.1 L, MCV 85.2, MCH 26.4 L, MCHC 31.0 L, RDW Std Deviation 55.8 H, RDW Coeff of Raghavendra 18.8 H, Plt Count 218, MPV 12.0, Immature Gran % (Auto) 1.400 H, Neut % (Auto) 85.6 H, Lymph % (Auto) 5.2 L, Hickman % (Auto) 6.2, Eos % (Auto) 1.4, Baso % (Auto) 0.2, Absolute Neuts (auto) 10.8 H, Absolute Lymphs (auto) 0.66 L, Nucleated RBC % 0, Sodium 137, Potassium 3.9, Chloride 104, Carbon Dioxide 20.0 L, Anion Gap 13, BUN 131 H*, Creatinine 3.40 H, Estim Creat Clear Calc 21.29, Est GFR (MDRD) Af Amer 23 L, Est GFR (MDRD) Non-Af 19 L, BUN/Creatinine Ratio 38.5 H, Glucose 199 H, Calcium 8.0 L 08/23/23 05:30: POC Glucose 175 H 08/23/23 11:52: POC Glucose 162 H Micro: Microbiology 08/17/23 09:00 Blood Culture (Wb) - Pic Blood Culture - Final Stenotrophomonas maltophilia 08/17/23 09:00 Blood Culture (Wb) - Right Wrist Blood Culture - Final No growth in 5 days. 08/12/23 12:29 Wash - Right Middle Lobe Virus Culture - Final 08/20/23 10:15 Stool Stool Occult Blood (CRISTIAN) - Final Occult Blood Positive 08/17/23 09:15 Sputum, Induced/Lukens Gram Stain - Final 08/17/23 09:15 Sputum, Induced/Lukens Respiratory Culture - Preliminary Stenotrophomonas maltophilia 08/11/23 15:14 Fluid - Pleural (Lung) Gram Stain - Final 08/11/23 15:14 Fluid - Pleural (Lung) Body Fluid Culture - Final Culture exhibits no growth. 08/11/23 15:14 Fluid - Pleural (Lung) Anaerobic Culture - Final No growth in 5 days. 08/12/23 12:29 Wash - Bronchial Gram Stain - Final 08/12/23 12:29 Wash - Bronchial Respiratory Culture - Final Stenotrophomonas maltophilia 08/11/23 09:59 Sputum, Induced/Lukens Gram Stain - Final 08/11/23 09:59 Sputum, Induced/Lukens Respiratory Culture - Final Stenotrophomonas maltophilia 08/12/23 10:49 Nasal Secretion SARS-CoV-2 Antigen (Rapid) - Final 08/04/23 00:00 Sputum, Expectorated/Coughed Gram Stain - Final 08/04/23 00:00 Sputum, Expectorated/Coughed Respiratory Culture - Final 08/03/23 21:57 Urine, Random Legionella Antigen - Final 08/03/23 21:57 Urine, Random Streptococcus pneumoniae Antigen (M - Final 08/03/23 18:30 Mucosa - Nose SARS-CoV-2, Influenza & RSV (PCR) - Final Physical Exam Narrative On vent support No obvious distress S1, S2, RRR Lung sounds clear anteriorly Abdomen soft No edema Indwelling Sar[place] with urine in bag Non-tunneled temporary HD catheter right IJ dressing clean, dry and intact Const alert Constitutional Narrative: intubated, sedated, RASS score is 0 HEENT normocephalic, moist oral mucous membranes and oropharynx normal Neck no lymphadenopathy and supple Lymph Lymphatic: no lymphadenopathy noted and no lymphedema noted Resp Resp Narrative: remains intubated, moderately diminished breath sounds bilaterally, no wheezes or crackles. On 3L of oxygen Cardio regular rate, regular rhythm, S1 normal heart sound, S2 normal heart sound and no murmurs GI normal to inspection, nondistended, normoactive bowel sounds, soft to palpation and non-tender Extremity General Extremity: no tenderness to palpation of joints or extremities Skin General Skin Exam: no breakdown Neuro Neuro Narrative: flat affect, intubated, RASS score is 0 Motor Exam: general weakness Assessment & Plan Assessment/Plan (1) Non-STEMI (non-ST elevated myocardial infarction): PLAN: Plan Patient is a 72-year-old gentleman admitted with shortness of breath was found to have elevated troponin consistent with acute non-STEMI treatment initiated per protocol admitted to the intensive care unit. Patient was found to be in acute respiratory failure resulting in the use of BiPAP Acute non-STEMI ? Patient admitted to the intensive care unit managed per protocol with heparin, aspirin added statin therapy and beta-blockers with consultation placed to cardiology. ? 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 Multifactorial including acute congestive heart failure, suspected PE as well as pneumonia patient placed on noninvasive ventilation Airvo and eventually intubated. Patient remains intubated and sedated and plans for likely tracheostomy tube. CT of the chest demonstrated bilateral pulmonary infiltrates involving both upper and lower lobes. Patient remains on broad-spectrum antibiotic therapy sputum cultures grew Stenotrophomonas maltophilia. Infectious disease was consulted. Chronic kidney disease stage IIIb ? patient kidney function did worsen necessitating initiation of hemodialysis by nephrology Need for alternative modes of feeding -Patient should undergo percutaneous endoscopic gastrostomy tube placement. He has been intubated and sedated for multiple days and unlikely to be able to be weaned off of the vent at this time. He will undergo tracheostomy tube placement. We can schedule him for PEG tube placement. When we placed the PEG tube we will assess his upper GI tract for any signs of acute on chronic blood loss anemia. He is fecal occult positive but I do not think he needs a colonoscopy at this time. 08/23/23-will plan for PEG tube placement tomorrow. Charges/Coding Visit Charges Inpatient E&M: 46832 Subs Hosp L3
[2023-08-23 18:12] LABS: Bedside Glucose 184 mg/dL (74-106)
[2023-08-23] MEDS: Atorvastatin Calcium 40 MG Tablet GT (21:05)
[2023-08-24] VITALS (34 sets, daily range): BP systolic 81–98; BP diastolic 54–66; PULSE 89–107; RESP 16–27; TEMP 35.7–37.1; O2SAT 90–97; BMI 33.1; BMI 32.6
[2023-08-24] MEDS: 0.9% Saline Lock 10 ML Syringe IV ×2 (01:28→22:04)
[2023-08-24] MEDS: Propofol 10MG/Ml 1,000 MG/100 ML Bottle 11.1 MG CONT INF ×2 (01:28→09:08)
[2023-08-24 01:53] LABS: Bedside Glucose 138 mg/dL (74-106)
[2023-08-24 04:00] LABS: Absolute Neutrophil Count 8.5 X10^3/uL (2.0-7.7); Basophil# 0.05 X10^3/uL; Basophil% 0.5 % (0-1); Eosinophil# 0.14 X10^3/uL; Eosinophils% 1.4 % (0-5); Hematocrit 25.2 % (40-54); Hemoglobin 7.5 g/dL (13.0-16.5); Mean Corp Hgb Conc 29.8 g/dL (32-36); Mean Corpuscular Volume 87.2 fL (80-94); Mean Platelet Vol. 12.6 fl (6.2-12.0); Monocyte# 0.65 X10^3/uL; Monocyte% 6.5 % (0-10); NRBC Flagged by Analyzer 0 % (0-5); Neutrophil # 8.48 X10^3/uL (2.7-7.7); Neutrophil % 84.3 % (47-70); POSITIVE DIFFERENTIAL YES; Platelet Count 184 K/mm3 (150-450); RBC Distribution Width CV 18.8 % (11.6-14.6); RBC Distribution Width SD 57.9 fl (35.1-43.9); Red Blood Count 2.89 M/mm3 (4.6-6.2); White Blood Count 10.1 K/mm3 (4.4-11.0)
[2023-08-24] MEDS: fentaNYL drip 100 ML 7.5 MCG CONT INF ×2 (04:38→15:10)
[2023-08-24 04:47] LABS: Anion Gap 8 (5-15); BUN 101 mg/dL (7-18); BUN/Creat Ratio 36.6 RATIO (10-20); Calcium,Total 7.5 mg/dL (8.5-10.1); Chloride 106 mmol/L (98-107); Creatinine, Serum 2.76 mg/dL (0.70-1.30); EST Glomerular Filtration Rate 24 mL/min (>60); Est Glom Filt Rate - Afr Amer 29 mL/min (>60); Estimated Creatinine Clearance 26.22 ml/min; Glucose 142 mg/dL (74-106); Potassium 3.4 mmol/L (3.5-5.1); Sodium Level 138 mmol/L (136-145)
[2023-08-24] MEDS: Insulin Lispro 100 UNIT/ML INSULN.PEN SC (05:13)
[2023-08-24] MEDS: CHLORHEXIDINE GLUC 2% CLOTH 1 EACH TOWELETTE TOPICAL (05:13)
[2023-08-24] MEDS: Menthol/Lanolin/Calamine/Znox 113 GM Tube 1 APPLIC TOPICAL ×3 (05:13→21:32)
[2023-08-24 05:35] LABS: Bedside Glucose 165 mg/dL (74-106)
--- NOTE | 2023-08-24 06:11 | PCM.PN.INT ---
Assessment & Plan Assessment/Plan (1) Acute hypoxic respiratory failure: (2) Pleural effusion, right: (3) TRENA (acute kidney injury): PLAN: Plan RECOMMENDATIONS: 1. Continue assist-control mode mechanical ventilation. Wean FiO2 and PEEP for saturations greater than 90%. 2. Continue current sedation regimen along with scheduled Seroquel. 3. Awaiting tracheostomy and PEG tube placement by ENT and GI, respectively. 4. Ongoing dialysis support per nephrology recommendations. 5. Antimicrobials per ID recommendations. 6. Continue tube feeding as tolerated. 7. Continue appropriate GI prophylaxis. IMPRESSIONS: 1. Acute hypoxemic respiratory failure Initially, the patient's respiratory decompensation was felt to be a consequence of decompensated heart failure with preserved ejection fraction in the setting of an NSTEMI. However, underlying infection related to stenotrophomonas seems more likely. Subsequent attempts at volume optimization led to no significant improvement in his respiratory status. The patient was also diagnosed with a right lower extremity DVT and small nonocclusive right lower lobe PE. He was subsequently initiated on a weight-based heparin infusion. Ultimately, the patient continued to decompensate from a respiratory perspective and required intubation. Upon intubation, the patient was noted to have a significant amount of bleeding from his endotracheal tube, raising the suspicion for diffuse alveolar hemorrhage. Nevertheless, subsequent bronchoscopy was not consistent with DAH. The patient underwent thoracentesis as well from the right hemithorax which appeared to be transudative in nature. Cardiac catheterization has already been completed, for which medical therapy was recommended. The patient continues to have a tenuous respiratory status on the ventilator, requiring high FiO2, and continues to experience frequent bloody secretions/clots. Over concerns that the ongoing bloody secretions could be contributing to his persistent high oxygenation requirement, an IVC filter was placed on August 17 in order to facilitate discontinuation of the weight-based heparin infusion. The patient remains on antimicrobials under the discretion of infectious diseases due to a multidrug-resistant stenotrophomonas. Plan to continue to wean FiO2 and PEEP to maintain saturations at or above 90%. Unfortunately, the patient continues to fail spontaneous breathing trials. Accordingly, ENT and gastroenterology have been consulted to facilitate tracheostomy and PEG tube placement, respectively. 2. NSTEMI/acute decompensated heart failure with preserved ejection fraction Management per cardiology. 3. Acute on chronic kidney disease Nephrology is following. The patient's worsening renal insufficiency is likely multifactorial and related to prerenal etiology coupled with possible contrast nephropathy from recent catheterization and CTA chest. Continue ongoing dialysis support per nephrology recommendations. TIME: 31 minutes, independent of procedures, was spent addressing the patient's acute hypoxemic respiratory failure, NSTEMI, acute decompensated heart failure with preserved ejection fraction, stenotrophomonas pneumonia, acute on chronic kidney disease, review of all data and collaboration with care team. Subjective Subjective The patient was seen and examined at the bedside this morning. Events from the last 24 hours have been reviewed. The patient is currently afebrile, hemodynamically stable and maintaining appropriate oxygen saturations on assist-control mode mechanical ventilation with an FiO2 requirement of 55% and PEEP of 5. The patient is still having a lot of endotracheal tube secretions, according to nursing report. Hemoglobin dropped to 7.5 g/dL this morning. Potassium is low at 3.4. Objective Data Objective Data The patient's most recent lab work, culture data and imaging studies have all been personally reviewed. Surface echocardiogram demonstrated normal LV size and function with an ejection fraction of 55%. Doppler study was positive for right-sided DVT. Sputum and blood cultures were positive for stenotrophomonas. Vital Signs: Vital Signs Temp Pulse Resp BP Pulse Ox O2 Del Method O2 Flow Rate 96.5 F L 90 17 86/58 L 95 Mechanical Ventilator 50 08/24/23 04:00 08/24/23 06:00 08/24/23 06:00 08/24/23 06:00 08/24/23 06:00 08/24/23 06:00 08/20/23 17:00 FiO2 55 08/24/23 06:00 Oxygen Flow Rate (L/min) 50 Oxygen Delivery Method Mechanical Ventilator Weight: 202 lb 6.15 oz Body Mass Index (BMI) 32.6 Intake & Output: Intake and Output for Last 24 Hours 08/22/23 08/23/23 08/24/23 23:59 23:59 23:59 Intake Total 3049.75 / 3065.25 2155.78 / 2605.88 701.70 / 701.70 Output Total 490 / 490 2915 / 2915 100 / 100 Balance 2559.75 / 2575.25 -759.22 / -309.12 601.70 / 601.70 Lab / Micro Data Attestation: I reviewed the patient's lab results. 08/24/23 03:54 08/24/23 03:54 Labs: Laboratory Results - last 24 hr 08/23/23 11:52: POC Glucose 162 H 08/23/23 17:19: POC Glucose 184 H 08/23/23 23:41: POC Glucose 138 H 08/24/23 03:54: WBC 10.1, RBC 2.89 L, Hgb 7.5 L, Hct 25.2 L, MCV 87.2, MCH 26.0 L, MCHC 29.8 L, RDW Std Deviation 57.9 H, RDW Coeff of Raghavendra 18.8 H, Plt Count 184, MPV 12.6 H, Immature Gran % (Auto) 1.300 H, Neut % (Auto) 84.3 H, Lymph % (Auto) 6.0 L, [place] % (Auto) 6.5, Eos % (Auto) 1.4, Baso % (Auto) 0.5, Absolute Neuts (auto) 8.5 H, Absolute Lymphs (auto) 0.60 L, Nucleated RBC % 0, Sodium 138, Potassium 3.4 L, Chloride 106, Carbon Dioxide 24.0, Anion Gap 8, BUN 101 H*, Creatinine 2.76 H, Estim Creat Clear Calc 26.22, Est GFR (MDRD) Af Amer 29 L, Est GFR (MDRD) Non-Af 24 L, BUN/Creatinine Ratio 36.6 H, Glucose 142 H, Calcium 7.5 L 08/24/23 05:12: POC Glucose 165 H Micro: Microbiology 08/17/23 09:00 Blood Culture (Wb) - Pic Blood Culture - Final Stenotrophomonas maltophilia 08/17/23 09:00 Blood Culture (Wb) - Right Wrist Blood Culture - Final No growth in 5 days. 08/12/23 12:29 Wash - Right Middle Lobe Virus Culture - Final 08/20/23 10:15 Stool Stool Occult Blood (CRISTIAN) - Final Occult Blood Positive 08/17/23 09:15 Sputum, Induced/Lukens Gram Stain - Final 08/17/23 09:15 Sputum, Induced/Lukens Respiratory Culture - Preliminary Stenotrophomonas maltophilia 08/11/23 15:14 Fluid - Pleural (Lung) Gram Stain - Final 08/11/23 15:14 Fluid - Pleural (Lung) Body Fluid Culture - Final Culture exhibits no growth. 08/11/23 15:14 Fluid - Pleural (Lung) Anaerobic Culture - Final No growth in 5 days. 08/12/23 12:29 Wash - Bronchial Gram Stain - Final 08/12/23 12:29 Wash - Bronchial Respiratory Culture - Final Stenotrophomonas maltophilia 08/11/23 09:59 Sputum, Induced/Lukens Gram Stain - Final 08/11/23 09:59 Sputum, Induced/Lukens Respiratory Culture - Final Stenotrophomonas maltophilia 08/12/23 10:49 Nasal Secretion SARS-CoV-2 Antigen (Rapid) - Final 08/04/23 00:00 Sputum, Expectorated/Coughed Gram Stain - Final 08/04/23 00:00 Sputum, Expectorated/Coughed Respiratory Culture - Final 08/03/23 21:57 Urine, Random Legionella Antigen - Final 08/03/23 21:57 Urine, Random Streptococcus pneumoniae Antigen (M - Final 08/03/23 18:30 Mucosa - Nose SARS-CoV-2, Influenza & RSV (PCR) - Final ABG Data ABG results: ABG 08/11/23 10:13 Specimen Type ART Sample Site L Radial pH 7.47 H Bicarbonate Actual 36.1 H Total CO2 38 Base Excess 13 H O2 Saturation 99 O2 % 50.0 ABG pCO2 49.8 H ABG pO2 132 H Abhijit Test Positive Respiration Rate 14 O2 Delivery Device Adult Vent Vent Mode AC Tidal Volume 500.0 POC PEEP 10 Radiography Diagnostic Testing: Radiology Impression Chest X-Ray 08/16/23 06:26 IMPRESSION: Stable exam. Electronically Signed: Mehdi Ernandez MD at 8:26 EDT , Physical Exam Const alert Constitutional Narrative: Intubated, sedated and mechanically ventilated. No ventilator dyssynchrony noted. HEENT normocephalic and head/scalp atraumatic Mouth: endotracheal tube in place and OG tube in place Eyes PERRL, EOMs intact bilaterally and conjunctivae normal Neck supple General: trachea midline Chest inspection of chest normal Resp Resp Narrative: Coarse mechanical breath sounds. Auscultation: diminished lung sounds; Negative for rales, rhonchi or wheezes Cardio regular rate, regular rhythm, S1 normal heart sound and S2 normal heart sound GI normal to inspection, nondistended, normoactive bowel sounds Extremity no clubbing, cyanosis or edema Skin no rashes or lesions noted Neuro Neuro Narrative: Alert and able to follow simple commands. Sensorium / Orientation: sedated on vent Charges/Coding Procedures Hospitalists Procedures: 35908 Critical Care 1st Hr
[2023-08-24] MEDS: TITRATION PARAMETER CHANGE 1 EACH IV (06:39)
[2023-08-24] MEDS: Potassium Chloride 20mEq/100mL 20 MEQ/100 ML IV.SOLN. 100 MEQ IV BOLUS ×2 (09:08→11:47)
[2023-08-24] MEDS: NORMAL SALINE 0.9% IV (10:41)
[2023-08-24] MEDS: CEFTAZIDIME IV (10:41)
[2023-08-24] MEDS: Chlorhexidine 15 ML PO ×2 (10:42→21:31)
--- NOTE | 2023-08-24 11:47 | CASEMGMT ---
Addendum entered by Alysha Méndez 08/25/23 14:18: PEG Documentation sent to [facility] via [employer] at this time. Addendum entered by Alysha Méndez 08/25/23 09:21: Bed codes and further documentation sent to [facility] via [facility] at this time. Addendum entered by Alysha Méndez 08/24/23 15:30: [facility] has received the referral and state that they will let this RN CM know if they are in need of any further documents. Will follow. Original Note: This RN CM talked to Sonia from [facility] in [place], [place]. Sonia states that she will help with the referral process. At this time, this RN CM sent referral to [facility] in [place] via [facility]. Will follow.
[2023-08-24 12:24] LABS: Bedside Glucose 90 mg/dL (74-106)
[2023-08-24] MEDS: Pantoprazole Sodium 40 MG in 0.9% Normal Saline (100mL MB+) 100 ML 330 MG IV ×2 (13:04→20:44)
--- NOTE | 2023-08-24 13:37 | PN_ITS ---
Subjective Subjective Patient seen and examined. He remains intubated and sedated. His oxygen requirement had to be increased yesterday and he is now on FiO2 of 60%. He is due for PEG tube insertion today. Objective Data Objective Data Vital Signs: Vital Signs Temp Pulse Resp BP Pulse Ox O2 Del Method O2 Flow Rate 98.7 F 92 22 H 96/60 90 Mechanical Ventilator 50 08/24/23 08:00 08/24/23 12:57 08/24/23 12:57 08/24/23 11:00 08/24/23 12:57 08/24/23 11:00 08/20/23 17:00 FiO2 60 08/24/23 12:57 Oxygen Flow Rate (L/min) 50 Oxygen Delivery Method Mechanical Ventilator Weight: 202 lb 6.15 oz Body Mass Index (BMI) 32.6 Intake & Output: Intake and Output for Last 24 Hours 08/22/23 08/23/23 08/24/23 23:59 23:59 23:59 Intake Total 3049.75 / 3065.25 2155.78 / 2605.88 1207.51 / 1207.51 Output Total 490 / 490 2915 / 2915 100 / 100 Balance 2559.75 / 2575.25 -759.22 / -309.12 1107.51 / 1107.51 Lab / Micro Data 08/24/23 03:54 08/24/23 03:54 Labs: Laboratory Results - last 24 hr 08/23/23 17:19: POC Glucose 184 H 08/23/23 23:41: POC Glucose 138 H 08/24/23 03:54: WBC 10.1, RBC 2.89 L, Hgb 7.5 L, Hct 25.2 L, MCV 87.2, MCH 26.0 L, MCHC 29.8 L, RDW Std Deviation 57.9 H, RDW Coeff of Raghavendra 18.8 H, Plt Count 184, MPV 12.6 H, Immature Gran % (Auto) 1.300 H, Neut % (Auto) 84.3 H, Lymph % (Auto) 6.0 L, [place] % (Auto) 6.5, Eos % (Auto) 1.4, Baso % (Auto) 0.5, Absolute Neuts (auto) 8.5 H, Absolute Lymphs (auto) 0.60 L, Nucleated RBC % 0, Sodium 138, Potassium 3.4 L, Chloride 106, Carbon Dioxide 24.0, Anion Gap 8, BUN 101 H* , Creatinine 2.76 H, Estim Creat Clear Calc 26.22, Est GFR (MDRD) Af Amer 29 L, Est GFR (MDRD) Non-Af 24 L, BUN/Creatinine Ratio 36.6 H, Glucose 142 H, Calcium 7.5 L 08/24/23 05:12: POC Glucose 165 H 08/24/23 12:03: POC Glucose 90 Micro: Microbiology 08/17/23 09:00 Blood Culture (Wb) - Pic Blood Culture - Final Stenotrophomonas maltophilia 08/17/23 09:00 Blood Culture (Wb) - Right Wrist Blood Culture - Final No growth in 5 days. 08/12/23 12:29 Wash - Right Middle Lobe Virus Culture - Final 08/20/23 10:15 Stool Stool Occult Blood (CRISTIAN) - Final Occult Blood Positive 08/17/23 09:15 Sputum, Induced/Lukens Gram Stain - Final 08/17/23 09:15 Sputum, Induced/Lukens Respiratory Culture - Preliminary Stenotrophomonas maltophilia 08/11/23 15:14 Fluid - Pleural (Lung) Gram Stain - Final 08/11/23 15:14 Fluid - Pleural (Lung) Body Fluid Culture - Final Culture exhibits no growth. 08/11/23 15:14 Fluid - Pleural (Lung) Anaerobic Culture - Final No growth in 5 days. 08/12/23 12:29 Wash - Bronchial Gram Stain - Final 08/12/23 12:29 Wash - Bronchial Respiratory Culture - Final Stenotrophomonas maltophilia 08/11/23 09:59 Sputum, Induced/Lukens Gram Stain - Final 08/11/23 09:59 Sputum, Induced/Lukens Respiratory Culture - Final Stenotrophomonas maltophilia 08/12/23 10:49 Nasal Secretion SARS-CoV-2 Antigen (Rapid) - Final 08/04/23 00:00 Sputum, Expectorated/Coughed Gram Stain - Final 08/04/23 00:00 Sputum, Expectorated/Coughed Respiratory Culture - Final 08/03/23 21:57 Urine, Random Legionella Antigen - Final 08/03/23 21:57 Urine, Random Streptococcus pneumoniae Antigen (M - Final 08/03/23 18:30 Mucosa - Nose SARS-CoV-2, Influenza & RSV (PCR) - Final Physical Exam Narrative Const alert, oriented x3, no apparent distress and healthy appearing Constitutional Narrative: intubated, sedated, RASS score is 0 General Appearance: cooperative HEENT normocephalic, head/scalp atraumatic, moist oral mucous membranes and oropharynx normal Eyes PERRL, EOMs intact bilaterally and conjunctivae normal Eyes Narrative: Neck no lymphadenopathy, supple, no JVD, thyroid normal and no carotid bruits Neck Narrative: General: trachea midline Lymph Lymphatic: no lymphadenopathy noted and no lymphedema noted Resp normal respiratory effort, no retractions, no use of accessory muscles and No clear to auscultation bilaterally Resp Narrative: remains intubated, moderately diminished breath sounds bilaterally, no wheezes or crackles. remains intubated sedated. Auscultation: rhonchi; Negative for rales or wheezes Cardio regular rate, regular rhythm, S1 normal heart sound, S2 normal heart sound, no murmurs, no rub, no gallops and no clicks GI normal to inspection, nondistended, normoactive bowel sounds, soft to palpation, non-tender, non-distended and hepatosplenomegaly Extremity normal to inspection and no clubbing, cyanosis or edema Extremity Narrative: Right upper extremity PICC in place- General Extremity: no tenderness to palpation of joints or extremities Skin no rashes or lesions noted General Skin Exam: no breakdown Neuro Neuro Narrative: flat affect, intubated, RASS score is 0 Sensorium / Orientation: awake, alert, oriented to person, oriented to place and oriented to time Speech: speech normal Motor Exam: general weakness Psych Psych Narrative: flat affect, intubated, on the ventilator Assessment & Plan Assessment/Plan (1) Pulmonary embolus, right: (2) Bacteremia due to Gram-negative bacteria: (3) Acute hypoxic respiratory failure: (4) Pleural effusion, right: PLAN: Plan #Acute hypoxic respiratory failure * multifactorial; thought to be due to nonstemi, pneumonia, PE and volume overload * CXR was consistent with ARDS * remains intubated and sedated * being diuresed with IV lasix. * unable to wean down FiO2. * oxygen requirements increased overnight and he had to be put on propofol and fentanyl. * remains on ceftazidime and oral minocycline. * critical care on board * # Pneumonia due to multidrug-resistant stenotrophomonas * Blood cultures were also positive for this. It is resistant to Bactrim and Levaquin. Now on ceftazidime and minocycline. ID on board. * #Non-STEMI: * Had cardiac cath on 08/08/2023 which showed normal left main coronary artery and the first diagonal artery with 90% stenosis in first obtuse marginal branch noting 70% stenosis and a totally occluded RCA with [id number] collaterals. * on aspirin and statin. * # Hyponatremia: resolved. #Hypokalemia: K is 3.1. Will replace and trend. #Acute heart failure preserved ejection fraction: being diuresed with IV lasix #TRENA on CKD stage IIIb: Nephrology on board. Currently on dialysis. #History of PE: Developed GI bleed after being started on blood thinners. Has IVC filter in place. #Right pleural effusion: S/p right thoracentesis with removal of ~1000 cc of fluid. Will monitor. #Acute on chronic anemia due to GI bleed: Aspirin on hold. On Protonix. #Hypertension: On chlorthalidone and amlodipine. These are currently on hold. Metoprolol being continued. Will monitor. #Invasive urothelial carcinoma: S/p transurethral resection of the tumor. Follow-up with urology on outpatient basis. DVT prophylaxis: IVC filter in place. On PPI. Charges/Coding Visit Charges Inpatient E&M: 78188 [facility] Hosp L3
--- NOTE | 2023-08-24 13:42 | PN.RENAL_ITS ---
Subjective Subjective Remains intubated. Still on 60% oxygen. Trach and PEG planned. Some urine output. Objective Data Objective Data Vital Signs: Vital Signs Temp Pulse Resp BP Pulse Ox O2 Del Method O2 Flow Rate 98.7 F 92 22 H 96/60 90 Mechanical Ventilator 50 08/24/23 08:00 08/24/23 12:57 08/24/23 12:57 08/24/23 11:00 08/24/23 12:57 08/24/23 11:00 08/20/23 17:00 FiO2 60 08/24/23 12:57 Oxygen Flow Rate (L/min) 50 Oxygen Delivery Method Mechanical Ventilator Weight: 91.8 kg Body Mass Index (BMI) 32.6 Intake & Output: Intake and Output for Last 24 Hours 08/22/23 08/23/23 08/24/23 23:59 23:59 23:59 Intake Total 3049.75 / 3065.25 2155.78 / 2605.88 1207.51 / 1207.51 Output Total 490 / 490 2915 / 2915 100 / 100 Balance 2559.75 / 2575.25 -759.22 / -309.12 1107.51 / 1107.51 Lab / Micro Data 08/24/23 03:54 08/24/23 03:54 Labs: Laboratory Results - last 24 hr 08/23/23 17:19: POC Glucose 184 H 08/23/23 23:41: POC Glucose 138 H 08/24/23 03:54: WBC 10.1, RBC 2.89 L, Hgb 7.5 L, Hct 25.2 L, MCV 87.2, MCH 26.0 L, MCHC 29.8 L, RDW Std Deviation 57.9 H, RDW Coeff of Raghavendra 18.8 H, Plt Count 184, MPV 12.6 H, Immature Gran % (Auto) 1.300 H, Neut % (Auto) 84.3 H, Lymph % (Auto) 6.0 L, [place] % (Auto) 6.5, Eos % (Auto) 1.4, Baso % (Auto) 0.5, Absolute Neuts (auto) 8.5 H, Absolute Lymphs (auto) 0.60 L, Nucleated RBC % 0, Sodium 138, Potassium 3.4 L, Chloride 106, Carbon Dioxide 24.0, Anion Gap 8, BUN 101 H* , Creatinine 2.76 H, Estim Creat Clear Calc 26.22, Est GFR (MDRD) Af Amer 29 L, Est GFR (MDRD) Non-Af 24 L, BUN/Creatinine Ratio 36.6 H, Glucose 142 H, Calcium 7.5 L 08/24/23 05:12: POC Glucose 165 H 08/24/23 12:03: POC Glucose 90 Micro: Microbiology 08/17/23 09:00 Blood Culture (Wb) - Pic Blood Culture - Final Stenotrophomonas maltophilia 08/17/23 09:00 Blood Culture (Wb) - Right Wrist Blood Culture - Final No growth in 5 days. 08/12/23 12:29 Wash - Right Middle Lobe Virus Culture - Final 08/20/23 10:15 Stool Stool Occult Blood (CRISTIAN) - Final Occult Blood Positive 08/17/23 09:15 Sputum, Induced/Lukens Gram Stain - Final 08/17/23 09:15 Sputum, Induced/Lukens Respiratory Culture - Preliminary Stenotrophomonas maltophilia 08/11/23 15:14 Fluid - Pleural (Lung) Gram Stain - Final 08/11/23 15:14 Fluid - Pleural (Lung) Body Fluid Culture - Final Culture exhibits no growth. 08/11/23 15:14 Fluid - Pleural (Lung) Anaerobic Culture - Final No growth in 5 days. 08/12/23 12:29 Wash - Bronchial Gram Stain - Final 08/12/23 12:29 Wash - Bronchial Respiratory Culture - Final Stenotrophomonas maltophilia 08/11/23 09:59 Sputum, Induced/Lukens Gram Stain - Final 08/11/23 09:59 Sputum, Induced/Lukens Respiratory Culture - Final Stenotrophomonas maltophilia 08/12/23 10:49 Nasal Secretion SARS-CoV-2 Antigen (Rapid) - Final 08/04/23 00:00 Sputum, Expectorated/Coughed Gram Stain - Final 08/04/23 00:00 Sputum, Expectorated/Coughed Respiratory Culture - Final 08/03/23 21:57 Urine, Random Legionella Antigen - Final 08/03/23 21:57 Urine, Random Streptococcus pneumoniae Antigen (M - Final 08/03/23 18:30 Mucosa - Nose SARS-CoV-2, Influenza & RSV (PCR) - Final Physical Exam Narrative Alert and oriented, no apparent distress S1, S2, RRR Lung sounds diminished posterior bases Abdomen soft No edema Indwelling Saravia clear yellow urine in bag Non-tunneled right IJ temporary HD catheter accessed for hemodialysis Const alert and oriented x3 General Appearance: well developed and patient mechanically ventilated Orientation / Consciousness: oriented to person, oriented to place and oriented to time HEENT normocephalic Neck no lymphadenopathy Resp Auscultation: crackles right and left and rhonchi throughout Cardio regular rate and no murmurs GI non-tender and non-distended Auscultation: normoactive bowel sounds Palpation: soft Bladder / Kidney Exam: catheter in place Skin no rashes or lesions noted Neuro Sensorium / Orientation: awake, alert and sedated on vent Psych cooperative Assessment & Plan Assessment/Plan (1) TRENA (acute kidney injury): PLAN: 72-year-old male with past medical history significant for 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 Terry (after surgery baseline creatinine around 2.0), presented emergency room on 08/02 with complaints of shortness of breath with exertion, admitted for non-STEMI, suspected pneumonia. - TRENA superimposed on CKD; TRENA likely from ischemic ATN. Renal serologies p- ANCA, c-ANCA, double-stranded DNA, glomerular basement membrane antibody, C3 all normal. C4 complement slightly elevated at 46. Patient was initiated on hemodialysis 08/11 (serum creatinine peaked 4.98 on 08/11) as renal function was worsening and urine output declining. Dialysis 08/23/2023.. -Bacteremia due to gram-negative bacteria/ stenotrophomonas; antibiotics per ID, currently IV ceftazidime and p.o. minocycline -ENT and GI consulted for tracheostomy and PEG tube placement -If patient remains dialysis dependent will need tunneled HD catheter placed before hospital discharge. Needs to clear bacteremia before tunneled dialysis placement.
--- NOTE | 2023-08-24 13:51 | PCM.PN.ID ---
Physical Exam Narrative On vent, no fever Const no apparent distress Resp Auscultation: rhonchi Cardio regular rate and regular rhythm GI soft to palpation, non-tender and non-distended Skin no rashes or lesions noted ID ID: Route of nutrition/ use of supplements: [] Nutritional Intake: [] IV Site: [] Saravia Catheter: [] Assessment & Plan Assessment/Plan (1) Bacteremia due to Gram-negative bacteria: PLAN: Steno bacteremia, resp source. Sputum steno now R to bactrim and levaquin. Cont iv ceftazidime and po minocycline. Lab has sent out for additional susceptibility testing. Wbc normalized. On 60% fiO2. Will follow (2) Pulmonary embolus, right: (3) Acute hypoxic respiratory failure: (4) TRENA (acute kidney injury): (5) Chronic kidney disease, stage 3b: (6) Pneumonia: QUALIFIERS: Pneumonia type: due to unspecified organism
[2023-08-24] MEDS: Propofol 10MG/Ml 1,000 MG/100 ML Bottle 8.3 MG CONT INF (15:10)
--- NOTE | 2023-08-24 18:13 | EX.PCM.PN.GI ---
Subjective Subjective Patient still intubated sedated. He was supposed to get PEG tube placed toda. Objective Data Objective Data Vital Signs: Vital Signs Temp Pulse Resp BP Pulse Ox O2 Del Method O2 Flow Rate 96.9 F L 91 16 96/61 91 Mechanical Ventilator 50 08/24/23 12:00 08/24/23 16:15 08/24/23 16:15 08/24/23 15:00 08/24/23 16:15 08/24/23 15:00 08/20/23 17:00 FiO2 60 08/24/23 16:15 Oxygen Flow Rate (L/min) 50 Oxygen Delivery Method Mechanical Ventilator Weight: 202 lb 6.15 oz Body Mass Index (BMI) 32.6 Intake & Output: Intake and Output for Last 24 Hours 08/22/23 08/23/23 08/24/23 23:59 23:59 23:59 Intake Total 3049.75 / 3065.25 2155.78 / 2605.88 1495.12 / 1495.12 Output Total 490 / 490 2915 / 2915 300 / 300 Balance 2559.75 / 2575.25 -759.22 / -309.12 1195.12 / 1195.12 Lab / Micro Data 08/24/23 03:54 08/24/23 03:54 Labs: Laboratory Results - last 24 hr 08/23/23 23:41: POC Glucose 138 H 08/24/23 03:54: WBC 10.1, RBC 2.89 L, Hgb 7.5 L, Hct 25.2 L, MCV 87.2, MCH 26.0 L, MCHC 29.8 L, RDW Std Deviation 57.9 H, RDW Coeff of Raghavendra 18.8 H, Plt Count 184, MPV 12.6 H, Immature Gran % (Auto) 1.300 H, Neut % (Auto) 84.3 H, Lymph % (Auto) 6.0 L, [place] % (Auto) 6.5, Eos % (Auto) 1.4, Baso % (Auto) 0.5, Absolute Neuts (auto) 8.5 H, Absolute Lymphs (auto) 0.60 L, Nucleated RBC % 0, Sodium 138, Potassium 3.4 L, Chloride 106, Carbon Dioxide 24.0, Anion Gap 8, BUN 101 H*, Creatinine 2.76 H, Estim Creat Clear Calc 26.22, Est GFR (MDRD) Af Amer 29 L, Est GFR (MDRD) Non-Af 24 L, BUN/Creatinine Ratio 36.6 H, Glucose 142 H, Calcium 7.5 L 08/24/23 05:12: POC Glucose 165 H 08/24/23 12:03: POC Glucose 90 Micro: Microbiology 08/17/23 09:00 Blood Culture (Wb) - Pic Blood Culture - Final Stenotrophomonas maltophilia 08/17/23 09:00 Blood Culture (Wb) - Right Wrist Blood Culture - Final No growth in 5 days. 08/12/23 12:29 Wash - Right Middle Lobe Virus Culture - Final 08/20/23 10:15 Stool Stool Occult Blood (CRISTIAN) - Final Occult Blood Positive 08/17/23 09:15 Sputum, Induced/Lukens Gram Stain - Final 08/17/23 09:15 Sputum, Induced/Lukens Respiratory Culture - Preliminary Stenotrophomonas maltophilia 08/11/23 15:14 Fluid - Pleural (Lung) Gram Stain - Final 08/11/23 15:14 Fluid - Pleural (Lung) Body Fluid Culture - Final Culture exhibits no growth. 08/11/23 15:14 Fluid - Pleural (Lung) Anaerobic Culture - Final No growth in 5 days. 08/12/23 12:29 Wash - Bronchial Gram Stain - Final 08/12/23 12:29 Wash - Bronchial Respiratory Culture - Final Stenotrophomonas maltophilia 08/11/23 09:59 Sputum, Induced/Lukens Gram Stain - Final 08/11/23 09:59 Sputum, Induced/Lukens Respiratory Culture - Final Stenotrophomonas maltophilia 08/12/23 10:49 Nasal Secretion SARS-CoV-2 Antigen (Rapid) - Final 08/04/23 00:00 Sputum, Expectorated/Coughed Gram Stain - Final 08/04/23 00:00 Sputum, Expectorated/Coughed Respiratory Culture - Final 08/03/23 21:57 Urine, Random Legionella Antigen - Final 08/03/23 21:57 Urine, Random Streptococcus pneumoniae Antigen (M - Final 08/03/23 18:30 Mucosa - Nose SARS-CoV-2, Influenza & RSV (PCR) - Final Physical Exam Narrative On vent, no fever Const no apparent distress Resp Auscultation: rhonchi Cardio regular rate and regular rhythm GI soft to palpation, non-tender and non-distended Skin no rashes or lesions noted Assessment & Plan Assessment/Plan (1) Non-STEMI (non-ST elevated myocardial infarction): PLAN: Plan Patient is a 72-year-old gentleman admitted with shortness of breath was found to have elevated troponin consistent with acute non-STEMI treatment initiated per protocol admitted to the intensive care unit. Patient was found to be in acute respiratory failure resulting in the use of BiPAP Acute non-STEMI ? Patient admitted to the intensive care unit managed per protocol with heparin, aspirin added statin therapy and beta-blockers with consultation placed to cardiology. ? 08/09/2023 cardiac catheterization demonstrated Normal left main coronary artery, First diagonal vessel with 90% long proximal stenosis, Left anterior descending artery with mild disease ,Nondominant left circumflex artery with first obtuse marginal branch with 70% stenosis, Totally occluded right coronary artery with [id number] collaterals ,Low normal left ventricular ejection fraction noted on echocardiogram with dilated right ventricle Acute hypoxic respiratory failure ? Multifactorial including acute congestive heart failure, suspected PE as well as pneumonia patient placed on noninvasive ventilation Airvo and eventually intubated. Patient remains intubated and sedated and plans for likely tracheostomy tube. CT of the chest demonstrated bilateral pulmonary infiltrates involving both upper and lower lobes. Patient remains on broad-spectrum antibiotic therapy sputum cultures grew Stenotrophomonas maltophilia. Infectious disease was consulted. Chronic kidney disease stage IIIb ? patient kidney function did worsen necessitating initiation of hemodialysis by nephrology Need for alternative modes of feeding -Patient should undergo percutaneous endoscopic gastrostomy tube placement. He has been intubated and sedated for multiple days and unlikely to be able to be weaned off of the vent at this time. He will undergo tracheostomy tube placement. We can schedule him for PEG tube placement. When we placed the PEG tube we will assess his upper GI tract for any signs of acute on chronic blood loss anemia. He is fecal occult positive but I do not think he needs a colonoscopy at this time. 08/23/23-will plan for PEG tube placement tomorrow. 08/24/23-patient cannot get PEG placed today. We will place it tomorrow morning. Hold anticoagulation. Charges/Coding Visit Charges Inpatient E&M: 35057 [facility] L3
[2023-08-24] MEDS: NEPRO TUBE FEED 1,000 ML 45 ML GT (18:53)
[2023-08-24 19:17] LABS: Bedside Glucose 86 mg/dL (74-106)
[2023-08-24] MEDS: MINOCYCLINE HCL GT (21:30)
[2023-08-24] MEDS: QUEtiapine 25 MG Tablet GT (21:30)
[2023-08-24] MEDS: Atorvastatin Calcium 40 MG Tablet GT (21:30)
[2023-08-24] MEDS: [UNRECOGNIZED DRUG - OTHER] GT (21:30)
[2023-08-24] MEDS: 0.9% Normal Saline (250mL Bag) 250 ML 15 ML IV (23:18)
[2023-08-25] VITALS (46 sets, daily range): BP systolic 51–319; BP diastolic 42–69; PULSE 86–107; RESP 16–22; TEMP 35.6–36.8; O2SAT 84–99; BMI 33.7; BMI 33.5
[2023-08-25] MEDS: fentaNYL drip 100 ML 7.5 MCG CONT INF
[2023-08-25 00:15] LABS: Bedside Glucose 98 mg/dL (74-106)
[2023-08-25] MEDS: Propofol 10MG/Ml 1,000 MG/100 ML Bottle 8.3 MG CONT INF (01:07)
[2023-08-25] MEDS: Menthol/Lanolin/Calamine/Znox 113 GM Tube 1 APPLIC TOPICAL ×3 (05:44→21:44)
[2023-08-25 06:03] LABS: Absolute Neutrophil Count 10.4 X10^3/uL (2.0-7.7); Basophil# 0.06 X10^3/uL; Basophil% 0.5 % (0-1); Eosinophil# 0.18 X10^3/uL; Eosinophils% 1.5 % (0-5); Hematocrit 27.7 % (40-54); Hemoglobin 8.3 g/dL (13.0-16.5); Mean Corpuscular Hgb 25.9 pg (27.0-32.0); Mean Corpuscular Volume 86.6 fL (80-94); Mean Platelet Vol. 12.4 fl (6.2-12.0); Monocyte# 0.61 X10^3/uL; Monocyte% 5.1 % (0-10); NRBC Flagged by Analyzer 0 % (0-5); Neutrophil # 10.35 X10^3/uL (2.7-7.7); Neutrophil % 86.6 % (47-70); POSITIVE DIFFERENTIAL YES; Platelet Count 195 K/mm3 (150-450); RBC Distribution Width CV 19.2 % (11.6-14.6); RBC Distribution Width SD 58.3 fl (35.1-43.9)
[2023-08-25 06:13] LABS: Bedside Glucose 125 mg/dL (74-106)
[2023-08-25 06:15] LABS: International Normalized Ratio 1.3; Prothrombin Time (Protime)PT. 15.9 SECONDS (11.7-14.9)
[2023-08-25 06:16] LABS: Partial Thromboplast Time 30.2 Seconds (24.1-36.2)
[2023-08-25] MEDS: TITRATION PARAMETER CHANGE 1 EACH IV (06:32)
[2023-08-25 06:49] LABS: Anion Gap 10 (5-15); BUN 121 mg/dL (7-18); BUN/Creat Ratio 32.8 RATIO (10-20); Calcium,Total 8.5 mg/dL (8.5-10.1); Chloride 104 mmol/L (98-107); Creatinine, Serum 3.69 mg/dL (0.70-1.30); EST Glomerular Filtration Rate 17 mL/min (>60); Est Glom Filt Rate - Afr Amer 21 mL/min (>60); Estimated Creatinine Clearance 19.79 ml/min; Glucose 144 mg/dL (74-106); Potassium 4.3 mmol/L (3.5-5.1); Sodium Level 135 mmol/L (136-145)
[2023-08-25] MEDS: PureFlow B 3K Dialysis Soln 1 BAG 6 BAG PF (08:19)
[2023-08-25] MEDS: 0.9% Normal Saline 1,000 ML IV.SOLN. 1000 ML OPERA.SITE (08:19)
--- NOTE | 2023-08-25 09:07 | PCM.PROGNOTE ---
Subjective Subjective Patient seen and examined. He remains intubated and sedated. He was having dialysis at time of review. His BP is running low, and he had his FiO2 increased to 80%. Unable to do review of systems gregorio he's intubated and sedated. RASS score is -4. Objective Data Objective Data Vital Signs: Vital Signs Temp Pulse Resp BP Pulse Ox O2 Del Method O2 Flow Rate 96.5 F L 86 16 85/60 L 97 Mechanical Ventilator 60 08/25/23 08:00 08/25/23 09:00 08/25/23 09:00 08/25/23 09:00 08/25/23 09:00 08/25/23 09:00 08/25/23 00:00 FiO2 65 08/25/23 09:00 Oxygen Flow Rate (L/min) 60 Oxygen Delivery Method Mechanical Ventilator Weight: 208 lb 15.971 oz Body Mass Index (BMI) 33.7 Intake & Output: Intake and Output for Last 24 Hours 08/23/23 08/24/23 08/25/23 23:59 23:59 23:59 Intake Total 2109.28 / 2559.38 1623.47 / 1701.77 714.80 / 714.80 Output Total 2915 / 2915 300 / 375 175 / 175 Balance -805.72 / -355.62 1323.47 / 1326.77 539.80 / 539.80 Lab / Micro Data 08/25/23 05:45 08/25/23 05:45 Labs: Laboratory Results - last 24 hr 08/24/23 12:03: POC Glucose 90 08/24/23 17:22: POC Glucose 86 08/24/23 23:57: POC Glucose 98 08/25/23 05:43: POC Glucose 125 H 08/25/23 05:45: WBC 12.0 H, RBC 3.20 L, Hgb 8.3 L, Hct 27.7 L, MCV 86.6, MCH 25.9 L, MCHC 30.0 L, RDW Std Deviation 58.3 H, RDW Coeff of Raghavendra 19.2 H, Plt Count 195, MPV 12.4 H, Immature Gran % (Auto) 1.300 H, Neut % (Auto) 86.6 H, Lymph % (Auto) 5.0 L, Cobb % (Auto) 5.1, Eos % (Auto) 1.5, Baso % (Auto) 0.5, Absolute Neuts (auto) 10.4 H, Absolute Lymphs (auto) 0.60 L, Nucleated RBC % 0, PT 15.9 H, INR 1.3, APTT 30.2, Sodium 135 L, Potassium 4.3, Chloride 104, Carbon Dioxide 21.0, Anion Gap 10, BUN 121 H*, Creatinine 3.69 H, Estim Creat Clear Calc 19.79, Est GFR (MDRD) Af Amer 21 L, Est GFR (MDRD) Non-Af 17 L, BUN/Creatinine Ratio 32.8 H, Glucose 144 H, Calcium 8.5 Micro: Microbiology 08/17/23 09:00 Blood Culture (Wb) - Pic Blood Culture - Final Stenotrophomonas maltophilia 08/17/23 09:00 Blood Culture (Wb) - Right Wrist Blood Culture - Final No growth in 5 days. 08/12/23 12:29 Wash - Right Middle Lobe Virus Culture - Final 08/20/23 10:15 Stool Stool Occult Blood (CRISTIAN) - Final Occult Blood Positive 08/17/23 09:15 Sputum, Induced/Lukens Gram Stain - Final 08/17/23 09:15 Sputum, Induced/Lukens Respiratory Culture - Preliminary Stenotrophomonas maltophilia 08/11/23 15:14 Fluid - Pleural (Lung) Gram Stain - Final 08/11/23 15:14 Fluid - Pleural (Lung) Body Fluid Culture - Final Culture exhibits no growth. 08/11/23 15:14 Fluid - Pleural (Lung) Anaerobic Culture - Final No growth in 5 days. 08/12/23 12:29 Wash - Bronchial Gram Stain - Final 08/12/23 12:29 Wash - Bronchial Respiratory Culture - Final Stenotrophomonas maltophilia 08/11/23 09:59 Sputum, Induced/Lukens Gram Stain - Final 08/11/23 09:59 Sputum, Induced/Lukens Respiratory Culture - Final Stenotrophomonas maltophilia 08/12/23 10:49 Nasal Secretion SARS-CoV-2 Antigen (Rapid) - Final 08/04/23 00:00 Sputum, Expectorated/Coughed Gram Stain - Final 08/04/23 00:00 Sputum, Expectorated/Coughed Respiratory Culture - Final 08/03/23 21:57 Urine, Random Legionella Antigen - Final 08/03/23 21:57 Urine, Random Streptococcus pneumoniae Antigen (M - Final 08/03/23 18:30 Mucosa - Nose SARS-CoV-2, Influenza & RSV (PCR) - Final Physical Exam Narrative Const Constitutional Narrative: intubated, sedated, RASS score is -4 HEENT normocephalic, head/scalp atraumatic, moist oral mucous membranes and oropharynx normal Eyes PERRL, EOMs intact bilaterally and conjunctivae normal Eyes Narrative: Neck no lymphadenopathy, supple, no JVD, thyroid normal and no carotid bruits Neck Narrative: General: trachea midline Lymph Lymphatic: no lymphadenopathy noted and no lymphedema noted Resp Resp Narrative: remains intubated and sedated, moderately diminished breath sounds bilaterally, no wheezes or crackles. Auscultation: Negative for rales Cardio regular rate, regular rhythm, S1 normal heart sound and S2 normal heart sound GI normal to inspection, nondistended, normoactive bowel sounds Extremity Extremity Narrative: Right upper extremity PICC in place General Extremity: no tenderness to palpation of joints or extremities Skin no rashes or lesions noted General Skin Exam: no breakdown Neuro Neuro Narrative: flat affect, intubated, RASS score is -4 Sensorium / Orientation: awake, alert, oriented to person, oriented to place and oriented to time Speech: speech normal Motor Exam: general weakness Psych Psych Narrative: flat affect, intubated, on the ventilator. RASS score is -4 Assessment & Plan Assessment/Plan (1) Pulmonary embolus, right: (2) Bacteremia due to Gram-negative bacteria: (3) Acute hypoxic respiratory failure: (4) Pleural effusion, right: PLAN: Plan #Acute hypoxic respiratory failure multifactorial; thought to be due to nonstemi, pneumonia, PE and volume overload CXR was consistent with ARDS remains intubated and sedated. RASS score is -4 being diuresed with IV lasix. unable to wean down FiO2. oxygen requirements increased overnight and he had to be put on propofol and fentanyl. remains on ceftazidime and oral minocycline. critical care on board he is having a PEG tube inserted today. ENT also consulted and he is to have a trach sometime later this week. # Pneumonia due to multidrug-resistant stenotrophomonas Blood cultures were also positive for this. It is resistant to Bactrim and Levaquin. Now on ceftazidime and minocycline. ID on board. #Non-STEMI: Had cardiac cath on 08/08/2023 which showed normal left main coronary artery and the first diagonal artery with 90% stenosis in first obtuse marginal branch noting 70% stenosis and a totally occluded RCA with [id number] collaterals. on aspirin and statin. # Hyponatremia: resolved. #Hypokalemia:resolve. K is 4.3. #Acute heart failure preserved ejection fraction: being diuresed with IV lasix #TRENA on CKD stage IIIb: Nephrology on board. Currently on dialysis. Havig dialysis today #History of PE: Developed GI bleed after being started on blood thinners. Has IVC filter in place. #Right pleural effusion: S/p right thoracentesis with removal of ~1000 cc of fluid. Will monitor. #Acute on chronic anemia due to GI bleed: Aspirin on hold. On Protonix. #Hypertension: On chlorthalidone and amlodipine. These are currently on hold. Metoprolol being continued. BP running low today. Will monitor. #Invasive urothelial carcinoma: S/p transurethral resection of the tumor. Follow-up with urology on outpatient basis. DVT prophylaxis: IVC filter in place. On PPI. Charges/Coding Visit Charges Inpatient E&M: [id number] [facility] Hosp L3
[2023-08-25] MEDS: fentaNYL drip 100 ML 10 MCG CONT INF ×2 (09:17→19:17)
[2023-08-25] MEDS: CHLORHEXIDINE GLUC 2% CLOTH 1 EACH TOWELETTE TOPICAL (09:18)
[2023-08-25] MEDS: Propofol 10MG/Ml 1,000 MG/100 ML Bottle 11.4 MG CONT INF (09:21)
[2023-08-25] MEDS: Chlorhexidine 15 ML PO ×2 (09:22→21:45)
[2023-08-25] MEDS: 0.9% Saline Lock 10 ML Syringe IV (09:22)
--- NOTE | 2023-08-25 10:00 | PCM.PN.ID ---
Physical Exam Narrative Hypoxic this AM, on 100%. No fever. Const no apparent distress Resp Auscultation: diminished lung sounds Cardio Rate: tachycardic GI soft to palpation, non-tender and non-distended Skin no rashes or lesions noted ID ID: Route of nutrition/ use of supplements: [] Nutritional Intake: [] IV Site: [] Saravia Catheter: [] Assessment & Plan Assessment/Plan (1) Bacteremia due to Gram-negative bacteria: PLAN: Steno bacteremia, resp source. Sputum steno now R to bactrim and levaquin. Cont iv ceftazidime and po minocycline. Lab has sent out for additional susceptibility testing. Wbc normalized. On 100% fiO2. Will send repeat bcx to document clearance. Will follow (2) Pulmonary embolus, right: (3) Acute hypoxic respiratory failure: (4) TRENA (acute kidney injury): (5) Chronic kidney disease, stage 3b: (6) Pneumonia: QUALIFIERS: Pneumonia type: due to unspecified organism
[2023-08-25] MEDS: Pantoprazole Sodium 40 MG in 0.9% Normal Saline (100mL MB+) 100 ML 330 MG IV ×2 (10:34→22:06)
[2023-08-25] MEDS: CEFTAZIDIME IV (10:36)
[2023-08-25] MEDS: NORMAL SALINE 0.9% IV (10:36)
[2023-08-25 11:14] LABS: Bedside Glucose 101 mg/dL (74-106)
--- NOTE | 2023-08-25 12:04 | OP.EGD_ITS ---
Patient Name: Claude Peña Procedure Date: 08/25/2023 11:18 AM Date of : 1950 Age: 72 Procedure: Upper GI endoscopy Indications: Place PEG because patient is unable to eat, Place PEG because patient requires ventilator support Providers: Hoang Wang DO Medicines: Monitored Anesthesia Care Patient Profile: This is a 72 year old male. Refer to note in patient chart for documentation of history and physical. Patient has symptoms. Complications: No immediate complications. Procedure: Pre-Anesthesia Assessment: - Prior to the procedure, a History and Physical was performed, and patient medications and allergies were reviewed. The risks and benefits of the procedure and the sedation options and risks were discussed with the patient. All questions were answered and informed consent was obtained. Patient identification and proposed procedure were verified by the physician in the pre-procedure area. Mental Status Examination: alert and oriented. Airway Examination: normal oropharyngeal airway and neck mobility. Prophylactic Antibiotics: The patient does not require prophylactic antibiotics. Prior Anticoagulants: The patient has taken no anticoagulant or antiplatelet agents. After reviewing the risks and benefits, the patient was deemed in satisfactory condition to undergo the procedure. The anesthesia plan was to use monitored anesthesia care (MAC). Immediately prior to administration of medications, the patient was re-assessed for adequacy to receive sedatives. The heart rate, respiratory rate, oxygen saturations, blood pressure, adequacy of pulmonary ventilation, and response to care were monitored throughout the procedure. The physical status of the patient was re-assessed after the procedure. After obtaining informed consent, the endoscope was passed under direct vision. Throughout the procedure, the patient's blood pressure, pulse, and oxygen saturations were monitored continuously. The Endoscope was introduced through the mouth, and advanced to the second part of duodenum. The upper GI endoscopy was accomplished without difficulty. The patient tolerated the procedure well. Scope In: 11:30:22 AM Scope Out: 11:48:56 AM Total Procedure Duration Time 0 hours 18 minutes 34 seconds Findings: The examined esophagus was normal. Diffuse moderately erythematous mucosa with bleeding was found in the entire examined stomach. The patient was placed in the supine position for PEG placement. The stomach was insufflated to appose gastric and abdominal asnz. A site was located in the cardia with excellent transillumination for placement. The abdominal wall was marked and prepped in a sterile manner. The area was anesthetized with 1 mL of 0.5% lidocaine. The trocar needle was introduced through the abdominal wall and into the stomach under direct endoscopic view. A snare was introduced through the endoscope and opened in the gastric lumen. The guide wire was passed through the trocar and into the open snare. The snare was closed around the guide wire. The endoscope and snare were removed, pulling the wire out through the mouth. A skin incision was made at the site of needle insertion. The endoscopically removable 20 Fr Bard gastrostomy tube was lubricated. The G-tube was tied to the guide wire and pulled through the mouth and into the stomach. The trocar needle was removed, and the gastrostomy tube was pulled out from the stomach through the skin. The external bumper was attached to the gastrostomy tube, and the tube was cut to remove the guide wire. The final position of the gastrostomy tube was confirmed by relook endoscopy, and skin marking noted to be 4 cm at the external bumper. The final tension and compression of the abdominal wall by the PEG tube and external bumper were checked and revealed that the bumper was loose and lightly touching the skin. The feeding tube was capped, and the tube site cleaned and dressed. No gross lesions were noted in the duodenal bulb. Impression: - Normal esophagus. - Erythematous mucosa in the stomach. - No gross lesions in the duodenal bulb. - An endoscopically removable PEG placement was successfully completed. - No specimens collected. Recommendation: - Please follow the post-PEG recommendations including: Nutrition consult for formula and volume, advance food and medications per primary care provider, external bolster 1 cm from abdominal wall, dry dressing only, may use PEG today for meds and water and start using PEG today. - Continue present medications. Procedure Code(s): --- Professional --- 47411, Esophagogastroduodenoscopy, flexible, transoral; with directed placement of percutaneous gastrostomy tube CPT copyright 2021 [employer]. All rights reserved. The codes documented in this report are preliminary and upon oil well services dispatcher review may be revised to meet current compliance requirements. Hoang Wang DO 08/25/2023 12:04:02 PM This report has been signed electronically. Number of Addenda: 0 Note Initiated On: 08/25/2023 11:18 AM
--- NOTE | 2023-08-25 12:04 | OP.CCLET_ITS ---
08/25/2023 David Baptiste MD Re : Upper GI endoscopy procedure for Claude Peña Dear Dr. Baptiste This procedure was performed on August. My impressions and recommendations are as follows: Impressions : - Normal esophagus. - Erythematous mucosa in the stomach. - No gross lesions in the duodenal bulb. - An endoscopically removable PEG placement was successfully completed. - No specimens collected. Recommendations : - Please follow the post-PEG recommendations including: Nutrition consult for formula and volume, advance food and medications per primary care provider, external bolster 1 cm from abdominal wall, dry dressing only, may use PEG today for meds and water and start using PEG today. - Continue present medications. My findings are described in the full procedure note, which is enclosed. If I can be of further assistance, please feel free to contact me at . Sincerely, Hoang Wang, 08/25/2023 12:04:02 PM This report has been signed electronically.
[2023-08-25] MEDS: [UNRECOGNIZED DRUG - OTHER] GT ×2 (12:09→21:45)
[2023-08-25] MEDS: MINOCYCLINE HCL GT ×2 (12:09→21:45)
[2023-08-25] MEDS: QUEtiapine 25 MG Tablet GT ×2 (12:09→21:44)
--- NOTE | 2023-08-25 12:09 | PCM.PN.TICU ---
Objective Data Objective Data Vital Signs: Vital Signs Last response Temperature 36.0 C L 08/25/23 10:25 Temperature Source Temporal 08/25/23 10:25 Pulse Rate 89 08/25/23 11:00 Pulse Strength Normal (2+) 08/24/23 22:00 Respiratory Rate 17 08/25/23 11:00 Respiratory Effort Mechanically Ventilated 08/25/23 10:25 Respiratory Depth Normal 08/25/23 08:00 Respiratory Pattern Normal 08/25/23 08:00 Blood Pressure 97/61 08/25/23 11:00 Blood Pressure Mean 73 08/25/23 11:00 Blood Pressure Source Monitor 08/25/23 11:00 Blood Pressure Position Semi-Fowlers 08/25/23 10:25 Blood Pressure Location Left Arm 08/25/23 10:25 Pulse Ox 97 08/25/23 11:00 Oxygen Delivery Method Mechanical Ventilator 08/25/23 10:25 Oxygen Flow Rate (L/min) 60 08/25/23 00:00 Fraction of Inspired Oxygen (FIO2) 80 08/25/23 10:13 I&O: I&O Last 24 Hours 08/24/23 08/25/23 08/25/23 23:59 11:59 23:59 Intake Total 659.26 / 1701.77 938.67 / 938.67 Output Total 200 / 375 395 / 395 Balance 459.26 / 1326.77 543.67 / 543.67 I&O: Total Stay 08/03/23 13:43 thru 08/25/23 11:11 Intake Total 38294.93 Output Total 91248 Balance 8598.93 Current Meds Ordered / Administered: Current meds ordered / Administered Generic Name Dose Route Start Last Admin Trade Name Freq PRN Reason Stop Dose Admin Acetaminophen 650 mg 08/12/23 03:35 Acetaminophen 650 Mg/20 Ml Udc GT Q6H PRN PRN Pain 1-10 Or Fever >100.7 Albuterol Sulfate 2.5 mg 08/03/23 17:36 08/21/23 22:41 Albuterol 2.5 Mg/3 Ml Vial.Neb. INHALATION 2.5 mg Q2H PRN PRN Administration SHORTNESS OF BREATH Aspirin 81 mg 08/12/23 08:00 08/21/23 08:13 Aspirin 81 Mg Tab.Chew GT 81 mg BREAKFAST REY Administration Atorvastatin Calcium 40 mg 08/12/23 22:00 08/24/23 21:30 Atorvastatin Calcium 40 Mg Tablet GT 40 mg QHS REY Administration Calamine/Phenol 1 applic 08/13/23 22:00 08/25/23 05:44 Menthol/Lanolin/Calamine/Znox 113 Gm Tube TOPICAL 1 applic TID REY Administration Protocol Chlorhexidine Gluconate 1 each 08/11/23 10:00 08/25/23 09:18 Chlorhexidine Gluc 2% Cloth 1 Each Towelette TOPICAL 1 each DAILY REY Administration Chlorhexidine Gluconate 15 ml 08/11/23 22:00 08/25/23 09:22 Chlorhexidine 15 Ml PO 15 ml BID REY Administration Minocycline HCl 2,000 mg/ 0 mg 08/24/23 22:00 08/25/23 10:42 Compound Med 200 ml GT Not Given Q12 REY Dextrose 0 gm 08/16/23 09:22 Dextrose 50%-Water 25 Gm/50 Ml Disp.Syrin IV X1 PRN Hypoglycemia Protocol Glucagon 1 mg 08/16/23 09:22 Glucagon 1 Mg/Ml Syringe IM X1 PRN Hypoglycemia Hemodialysis Solution 6 bag 08/25/23 07:15 08/25/23 08:19 Pureflow B 3k Dialysis Soln 1 Bag PF 08/25/23 19:10 4 bag UD REY Administration Protocol Heparin Sodium (Porcine) 1,000 - 3,000 units 08/25/23 07:09 Heparin 10,000 Units/10 Ml Vial IV 08/25/23 19:09 X1 PRN HD catheter closing Sodium Chloride 250 mls @ 15 mls/hr 08/04/23 23:09 08/08/23 02:14 IV Infused .[id number] PRN Infusion Additional IVPB Infusion Sodium Chloride 250 mls @ 15 mls/hr 08/04/23 23:09 08/24/23 23:18 IV 15 mls/hr .[id number] PRN Administration Saline Flush cefTAZidime 1 gm/ Sodium 60 mls @ 120 mls/hr 08/20/23 14:00 08/25/23 11:11 Chloride IV Infused DAILY REY Infusion Pantoprazole Sodium 40 mg/ 110 mls @ 330 mls/hr 08/20/23 22:00 08/25/23 11:11 Sodium Chloride IV Infused Q12 REY Infusion Propofol 1,000 mg in 100 mls @ 5.688 mls/hr 08/22/23 20:10 08/25/23 11:00 Diprivan CONT INF 20 mcg/kg/min .Q12H REY 11.4 mls/hr Titration Protocol 10 MCG/KG/MIN Enteral Nutritional Formula 1,000 mls @ 45 mls/hr 08/23/23 16:00 08/25/23 04:00 Nepro Carb Steady GT 0 mls/hr .[id number] REY Infusion Fentanyl 100 mls @ 10 mls/hr 08/25/23 07:45 08/25/23 11:00 CONT INF 100 mcg/hr UD REY 10 mls/hr Titration Protocol 100 MCG/HR Insulin Glargine 26 unit 08/20/23 10:00 08/25/23 10:07 Insulin Glargine-Yfgn 100 Unit/Ml Pen SC Not Given DAILY [facility] Insulin Human Lispro 0 unit 08/16/23 12:00 08/25/23 11:13 Insulin Lispro 100 Unit/Ml Insuln.Pen SC Not Given Q6 [facility] Protocol Metoprolol Tartrate 12.5 mg 08/19/23 10:00 08/25/23 10:07 Metoprolol Tartrate 25 Mg Tablet GT Not Given BID [facility] Protocol Ondansetron HCl 4 mg 08/03/23 17:36 08/17/23 01:35 Ondansetron 4 Mg/2 Ml Vial IV 4 mg Q8H PRN PRN Administration NAUSEA/VOMITING Quetiapine Fumarate 25 mg 08/24/23 22:00 08/25/23 10:42 Quetiapine 25 Mg Tablet GT Not Given BID [facility] Protocol Sodium Chloride 10 - 40 ml 08/03/23 17:59 08/25/23 09:22 0.9% Saline Lock 10 Ml Syringe IV 20 ml UD PRN Administration SALINE FLUSH Sodium Chloride 1,000 ml 08/25/23 07:10 08/25/23 08:19 0.9% Normal Saline 1,000 Ml Iv.Soln. OPERA.SITE 08/25/23 19:09 1,000 ml X1 REY Administration Sodium Chloride 200 ml 08/25/23 07:09 0.9% Normal Saline 100 Ml Iv.Soln. IV 08/25/23 19:09 X1 PRN to maintain SBP >90mmHg during Dialysis Lab / Micro Data 08/25/23 21:00 08/25/23 05:45 Labs: Laboratory Results - last 24 hr 08/24/23 12:03: POC Glucose 90 08/24/23 17:22: POC Glucose 86 08/24/23 23:57: POC Glucose 98 08/25/23 05:43: POC Glucose 125 H 08/25/23 05:45: WBC 12.0 H, RBC 3.20 L, Hgb 8.3 L, Hct 27.7 L, MCV 86.6, MCH 25.9 L, MCHC 30.0 L, RDW Std Deviation 58.3 H, RDW Coeff of Raghavendra 19.2 H, Plt Count 195, MPV 12.4 H, Immature Gran % (Auto) 1.300 H, Neut % (Auto) 86.6 H, Lymph % (Auto) 5.0 L, Faulk % (Auto) 5.1, Eos % (Auto) 1.5, Baso % (Auto) 0.5, Absolute Neuts (auto) 10.4 H, Absolute Lymphs (auto) 0.60 L, Nucleated RBC % 0, PT 15.9 H, INR 1.3, APTT 30.2, Sodium 135 L, Potassium 4.3, Chloride 104, Carbon Dioxide 21.0, Anion Gap 10, BUN 121 H*, Creatinine 3.69 H, Estim Creat Clear Calc 19.79, Est GFR (MDRD) Af Amer 21 L, Est GFR (MDRD) Non-Af 17 L, BUN/Creatinine Ratio 32.8 H, Glucose 144 H, Calcium 8.5 08/25/23 10:57: POC Glucose 101 Assessment and Plan . Assessment and plan: Patient seen and examined Chart and data reviewed Prolonged critical illness and MOF, including prolonged need for MV support Sedated HD performed w/ minimal UF d/t low BP MV 8 LPM, PIP 30, FiO2 0.8 No recent ABG or pCXR Awaiting placement of tracheostomy PEG has been placed EXAM GEN NAD VS as above HEENT DANIEL NECK obese COR RRR CHEST coarse ABD soft EXT pitting edema JESICA sedated ASSESSMENT/REC 1. Acute respiratory failure requiring prolonged MV support 2. MV dependence 3. Renal insufficiency requiring RENTAL MANAGEMENT TRAINEE 4. Hypervolemia 5. Pulmonary edema 6. Recent bleeding requiring cessation of A/C and placement IVC filter 7. VTED 8. Recent VAP w/ bacteremia - S malto -MV support -reduce FiO2 as able -sedation -tracheostomy placement -RENTAL MANAGEMENT TRAINEE w/ UF - (?) CRRT -TF via PEG -ABX -eventual LTACH Critical Care Time: 50 min The entirety of this encounter was done via Telemedicine
[2023-08-25] MEDS: NEPRO TUBE FEED 1,000 ML 45 ML GT (12:15)
[2023-08-25] MEDS: 0.9% Normal Saline (250mL Bag) 250 ML 15 ML IV (15:13)
--- NOTE | 2023-08-25 16:04 | PN.RENAL_ITS ---
Subjective Subjective worsening oxygenation Objective Data Objective Data Vital Signs: Vital Signs Temp Pulse Resp BP Pulse Ox O2 Del Method O2 Flow Rate 98.2 F 96 16 87/64 L 95 Mechanical Ventilator 60 08/25/23 12:00 08/25/23 14:00 08/25/23 14:00 08/25/23 14:00 08/25/23 14:00 08/25/23 15:36 08/25/23 00:00 FiO2 70 08/25/23 14:00 Oxygen Flow Rate (L/min) 60 Oxygen Delivery Method Mechanical Ventilator Weight: 94.8 kg Body Mass Index (BMI) 33.5 Intake & Output: Intake and Output for Last 24 Hours 08/23/23 08/24/23 08/25/23 23:59 23:59 23:59 Intake Total 2109.28 / 2559.38 1623.47 / 1701.77 1376.53 / 1376.53 Output Total 2915 / 2915 300 / 375 395 / 395 Balance -805.72 / -355.62 1323.47 / 1326.77 981.53 / 981.53 Lab / Micro Data 08/25/23 05:45 08/25/23 05:45 Labs: Laboratory Results - last 24 hr 08/24/23 17:22: POC Glucose 86 08/24/23 23:57: POC Glucose 98 08/25/23 05:43: POC Glucose 125 H 08/25/23 05:45: WBC 12.0 H, RBC 3.20 L, Hgb 8.3 L, Hct 27.7 L, MCV 86.6, MCH 25.9 L, MCHC 30.0 L, RDW Std Deviation 58.3 H, RDW Coeff of Raghavendra 19.2 H, Plt Count 195, MPV 12.4 H, Immature Gran % (Auto) 1.300 H, Neut % (Auto) 86.6 H, L ymph % (Auto) 5.0 L, [place] % (Auto) 5.1, Eos % (Auto) 1.5, Baso % (Auto) 0.5, A bsolute Neuts (auto) 10.4 H, Absolute Lymphs (auto) 0.60 L, Nucleated RBC % 0, P T 15.9 H, INR 1.3, APTT 30.2, Sodium 135 L, Potassium 4.3, Chloride 104, Carbon Dioxide 21.0, Anion Gap 10, BUN 121 H*, Creatinine 3.69 H, Estim Creat Clear Calc 19.79, Est GFR (MDRD) Af Amer 21 L, Est GFR (MDRD) Non-Af 17 L, B UN/Creatinine Ratio 32.8 H, Glucose 144 H, Calcium 8.5 08/25/23 10:57: POC Glucose 101 Micro: Microbiology 08/17/23 09:00 Blood Culture (Wb) - Pic Blood Culture - Final Stenotrophomonas maltophilia 08/17/23 09:00 Blood Culture (Wb) - Right Wrist Blood Culture - Final No growth in 5 days. 08/12/23 12:29 Wash - Right Middle Lobe Virus Culture - Final 08/20/23 10:15 Stool Stool Occult Blood (CRISTIAN) - Final Occult Blood Positive 08/17/23 09:15 Sputum, Induced/Lukens Gram Stain - Final 08/17/23 09:15 Sputum, Induced/Lukens Respiratory Culture - Preliminary Stenotrophomonas maltophilia 08/11/23 15:14 Fluid - Pleural (Lung) Gram Stain - Final 08/11/23 15:14 Fluid - Pleural (Lung) Body Fluid Culture - Final Culture exhibits no growth. 08/11/23 15:14 Fluid - Pleural (Lung) Anaerobic Culture - Final No growth in 5 days. 08/12/23 12:29 Wash - Bronchial Gram Stain - Final 08/12/23 12:29 Wash - Bronchial Respiratory Culture - Final Stenotrophomonas maltophilia 08/11/23 09:59 Sputum, Induced/Lukens Gram Stain - Final 08/11/23 09:59 Sputum, Induced/Lukens Respiratory Culture - Final Stenotrophomonas maltophilia 08/12/23 10:49 Nasal Secretion SARS-CoV-2 Antigen (Rapid) - Final 08/04/23 00:00 Sputum, Expectorated/Coughed Gram Stain - Final 08/04/23 00:00 Sputum, Expectorated/Coughed Respiratory Culture - Final 08/03/23 21:57 Urine, Random Legionella Antigen - Final 08/03/23 21:57 Urine, Random Streptococcus pneumoniae Antigen (M - Final 08/03/23 18:30 Mucosa - Nose SARS-CoV-2, Influenza & RSV (PCR) - Final Physical Exam Narrative S1, S2, RRR Lung sounds diminished posterior bases Abdomen soft No edema Indwelling Saravia clear yellow urine in bag Non-tunneled right IJ temporary HD catheter accessed for hemodialysis Const alert and oriented x3 General Appearance: well developed and patient mechanically ventilated Orientation / Consciousness: oriented to person, oriented to place and oriented to time HEENT normocephalic Neck no lymphadenopathy Resp Auscultation: crackles right and left and rhonchi throughout Cardio regular rate and no murmurs GI non-tender and non-distended Auscultation: normoactive bowel sounds Palpation: soft Bladder / Kidney Exam: catheter in place Skin no rashes or lesions noted Neuro Sensorium / Orientation: awake, alert and sedated on vent Psych cooperative Assessment & Plan Assessment/Plan (1) TRENA (acute kidney injury): PLAN: 72-year-old male with past medical history significant for 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 Terry (after surgery baseline creatinine around 2.0), presented emergency room on 08/02 with complaints of shortness of breath with exertion, admitted for non-STEMI, suspected pneumonia. - TRENA superimposed on CKD; TRENA likely from ischemic ATN. Renal serologies p- ANCA, c-ANCA, double-stranded DNA, glomerular basement membrane antibody, C3 all normal. C4 complement slightly elevated at 46. Patient was initiated on hemodialysis 08/11 (serum creatinine peaked 4.98 on 08/11) as renal function was worsening and urine output declining. -Bacteremia due to gram-negative bacteria/ stenotrophomonas; antibiotics per ID, currently IV ceftazidime and p.o. minocycline -ENT and GI consulted for tracheostomy and PEG tube placement -If patient remains dialysis dependent will need tunneled HD catheter placed before hospital discharge. Needs to clear bacteremia before tunneled dialysis placement. ID note reviewed. repeat cultures sent
[2023-08-25] MEDS: Propofol 10MG/Ml 1,000 MG/100 ML Bottle 8.5 MG CONT INF ×2 (17:18→22:00)
[2023-08-25 17:41] LABS: Bedside Glucose 121 mg/dL (74-106)
[2023-08-25 21:10] LABS: Hematocrit 27.8 % (40-54); Hemoglobin 8.1 g/dL (13.0-16.5)
[2023-08-25] MEDS: Midodrine HCl 5 MG Tablet 10 MG GT (21:44)
[2023-08-25] MEDS: Atorvastatin Calcium 40 MG Tablet GT (21:44)
[2023-08-26] VITALS (68 sets, daily range): BP systolic 57–257; BP diastolic 43–73; PULSE 87–107; RESP 15–24; TEMP 35.7–36.3; O2SAT 60–100; BMI 34.0; BMI 33.6
[2023-08-26 00:16] LABS: Bedside Glucose 120 mg/dL (74-106)
[2023-08-26] MEDS: Norepinephrine 8 MG in 0.9% Normal Saline (250mL Bag) 242 ML 9.4 MG CONT INF (01:38)
[2023-08-26] MEDS: fentaNYL drip 100 ML 10 MCG CONT INF ×2 (05:39→22:00)
[2023-08-26] MEDS: Menthol/Lanolin/Calamine/Znox 113 GM Tube 1 APPLIC TOPICAL ×3 (05:40→20:54)
[2023-08-26] MEDS: Insulin Lispro 100 UNIT/ML INSULN.PEN SC ×4 (05:45→23:49)
--- NOTE | 2023-08-26 05:55 | RAD_ITS ---
EXAM: XR CHEST, 1 VIEW CLINICAL INDICATION: ARF TECHNIQUE: Frontal view of the chest. COMPARISON: Previous chest radiograph of 08/20/2023. FINDINGS: LUNGS AND PLEURAL SPACES: Low lung volumes. The moderate airspace disease in the mid to lower lungs is again noted, not significantly changed when allowing for the lesser degree of inspiration. A very small right pleural effusion is suspected, extending into one of the fissures. No pneumothorax. HEART: Heart size remains upper normal. Pulmonary vascular markings are obscured. MEDIASTINUM: Calcific aortic arch, minimally elongated. BONES/JOINTS: Unremarkable. No acute fracture. SOFT TISSUES: Unremarkable. TUBES, LINES AND DEVICES: ET tube is in place in satisfactory position, with its tip projected approximately 3 cm above the zack. NG tube is no longer present. Right jugular venous sheath remains in place with its tip projected over the mid SVC. engine monitor leads overlie the chest wall. PICC line is again seen entering from the right with its tip projected of the distal SVC. RAD/Chest 1 View (Portable) IMPRESSION: Interval removal of NG tube. Stable bilateral moderate mid to lower lung airspace disease, not significantly changed when allowing for a lesser degree of inspiration. Interval development of a very small right pleural effusion. Electronically Signed: Nacho Cramer MD at 7:16 EDT ,
[2023-08-26 06:03] LABS: Absolute Neutrophil Count 10.6 X10^3/uL (2.0-7.7); Basophil# 0.09 X10^3/uL; Basophil% 0.7 % (0-1); Eosinophil# 0.15 X10^3/uL; Eosinophils% 1.2 % (0-5); Hematocrit 28.7 % (40-54); Hemoglobin 8.4 g/dL (13.0-16.5); Lymphocyte % 5.7 % (19-41); Mean Corp Hgb Conc 29.3 g/dL (32-36); Mean Corpuscular Hgb 25.5 pg (27.0-32.0); Mean Corpuscular Volume 87.2 fL (80-94); Monocyte% 4.9 % (0-10); NRBC Flagged by Analyzer 0 % (0-5); Neutrophil # 10.59 X10^3/uL (2.7-7.7); Neutrophil % 85.9 % (47-70); Platelet Count 189 K/mm3 (150-450); RBC Distribution Width CV 19.4 % (11.6-14.6); RBC Distribution Width SD 58.2 fl (35.1-43.9); Red Blood Count 3.29 M/mm3 (4.6-6.2); White Blood Count 12.3 K/mm3 (4.4-11.0)
[2023-08-26 06:13] LABS: Bedside Glucose 172 mg/dL (74-106)
[2023-08-26 06:45] LABS: Anion Gap 11 (5-15); BUN 105 mg/dL (7-18); Calcium,Total 8.5 mg/dL (8.5-10.1); Chloride 101 mmol/L (98-107); Creatinine, Serum 3.62 mg/dL (0.70-1.30); EST Glomerular Filtration Rate 18 mL/min (>60); Est Glom Filt Rate - Afr Amer 21 mL/min (>60); Estimated Creatinine Clearance 20.29 ml/min; Glucose 205 mg/dL (74-106); Potassium 4.7 mmol/L (3.5-5.1); Sodium Level 133 mmol/L (136-145)
[2023-08-26] MEDS: 0.9% Normal Saline 1,000 ML IV.SOLN. 1000 ML OPERA.SITE (07:31)
[2023-08-26] MEDS: 0.9% Saline Lock 10 ML Syringe IV ×2 (07:32→10:26)
[2023-08-26] MEDS: PureFlow B 2K Dialysis Soln 1 BAG 6 BAG PF (07:32)
[2023-08-26] MEDS: TITRATION PARAMETER CHANGE 1 EACH IV ×2 (08:08→14:55)
[2023-08-26] MEDS: Propofol 10MG/Ml 1,000 MG/100 ML Bottle 8.6 MG CONT INF (08:11)
[2023-08-26] MEDS: 0.9% Normal Saline (250mL Bag) 250 ML 15 ML IV (08:12)
--- NOTE | 2023-08-26 10:10 | PCM.PROGNOTE ---
Subjective Subjective Patient seen and examined. He remains intubated. FiO2 was 60% today. Still intubated and sedated. His gastric residuals were increased about over 400 cc today. Tube feeds therefore held. Objective Data Objective Data Vital Signs: Vital Signs Temp Pulse Resp BP Pulse Ox O2 Del Method O2 Flow Rate 96.8 F L 93 15 100/62 96 Mechanical Ventilator 60 08/26/23 08:00 08/26/23 09:59 08/26/23 09:59 08/26/23 09:59 08/26/23 09:59 08/26/23 09:59 08/25/23 19:00 FiO2 60 08/26/23 09:59 Oxygen Flow Rate (L/min) 60 Oxygen Delivery Method Mechanical Ventilator Weight: 211 lb 6.773 oz Body Mass Index (BMI) 34.0 Intake & Output: Intake and Output for Last 24 Hours 08/24/23 08/25/23 08/26/23 23:59 23:59 23:59 Intake Total 1623.47 / 1701.77 2074.53 / 2303.03 1427.00 / 1427.00 Output Total 300 / 375 435 / 460 100 / 100 Balance 1323.47 / 1326.77 1639.53 / 1843.03 1327.00 / 1327.00 Lab / Micro Data 08/26/23 05:50 08/26/23 05:50 Labs: Laboratory Results - last 24 hr 08/25/23 10:57: POC Glucose 101 08/25/23 17:22: POC Glucose 121 H 08/25/23 21:00: Hgb 8.1 L, Hct 27.8 L 08/25/23 23:57: POC Glucose 120 H 08/26/23 05:45: POC Glucose 172 H 08/26/23 05:50: WBC 12.3 H, RBC 3.29 L, Hgb 8.4 L, Hct 28.7 L, MCV 87.2, MCH 25.5 L, MCHC 29.3 L, RDW Std Deviation 58.2 H, RDW Coeff of Raghavendra 19.4 H, Plt Count 189, MPV 12.0, Immature Gran % (Auto) 1.600 H, Neut % (Auto) 85.9 H, Lymph % (Auto) 5.7 L, Kay % (Auto) 4.9, Eos % (Auto) 1.2, Baso % (Auto) 0.7, Absolute Neuts (auto) 10.6 H, Absolute Lymphs (auto) 0.70 L, Nucleated RBC % 0, Sodium 133 L, Potassium 4.7, Chloride 101, Carbon Dioxide 21.0, Anion Gap 11, BUN 105 H*, Creatinine 3.62 H, Estim Creat Clear Calc 20.29, Est GFR (MDRD) Af Amer 21 L, Est GFR (MDRD) Non-Af 18 L, BUN/Creatinine Ratio 29.0 H, Glucose 205 H, Calcium 8.5 Micro: Microbiology 08/17/23 09:00 Blood Culture (Wb) - Pic Blood Culture - Final Stenotrophomonas maltophilia 08/17/23 09:00 Blood Culture (Wb) - Right Wrist Blood Culture - Final No growth in 5 days. 08/12/23 12:29 Wash - Right Middle Lobe Virus Culture - Final 08/20/23 10:15 Stool Stool Occult Blood (CRISTIAN) - Final Occult Blood Positive 08/17/23 09:15 Sputum, Induced/Lukens Gram Stain - Final 08/17/23 09:15 Sputum, Induced/Lukens Respiratory Culture - Preliminary Stenotrophomonas maltophilia 08/11/23 15:14 Fluid - Pleural (Lung) Gram Stain - Final 08/11/23 15:14 Fluid - Pleural (Lung) Body Fluid Culture - Final Culture exhibits no growth. 08/11/23 15:14 Fluid - Pleural (Lung) Anaerobic Culture - Final No growth in 5 days. 08/12/23 12:29 Wash - Bronchial Gram Stain - Final 08/12/23 12:29 Wash - Bronchial Respiratory Culture - Final Stenotrophomonas maltophilia 08/11/23 09:59 Sputum, Induced/Lukens Gram Stain - Final 08/11/23 09:59 Sputum, Induced/Lukens Respiratory Culture - Final Stenotrophomonas maltophilia 08/12/23 10:49 Nasal Secretion SARS-CoV-2 Antigen (Rapid) - Final 08/04/23 00:00 Sputum, Expectorated/Coughed Gram Stain - Final 08/04/23 00:00 Sputum, Expectorated/Coughed Respiratory Culture - Final 08/03/23 21:57 Urine, Random Legionella Antigen - Final 08/03/23 21:57 Urine, Random Streptococcus pneumoniae Antigen (M - Final 08/03/23 18:30 Mucosa - Nose SARS-CoV-2, Influenza & RSV (PCR) - Final Radiography Diagnostic Testing: Radiology Impression Chest X-Ray 08/26/23 05:55 IMPRESSION: Interval removal of NG tube. Stable bilateral moderate mid to lower lung airspace disease, not significantly changed when allowing for a lesser degree of inspiration. Interval development of a very small right pleural effusion. Electronically Signed: Nacho Cramer MD at 7:16 EDT , Physical Exam Narrative Const alert, oriented x3, no apparent distress and healthy appearing Constitutional Narrative: intubated, sedated, RASS score remains -4 HEENT normocephalic, head/scalp atraumatic and oropharynx normal Mouth: dry mucous membranes Eyes PERRL, EOMs intact bilaterally and conjunctivae normal Eyes Narrative: Neck no lymphadenopathy, supple, no JVD, thyroid normal and no carotid bruits Neck Narrative: General: trachea midline Lymph Lymphatic: no lymphadenopathy noted and no lymphedema noted Resp Resp Narrative: remains intubated and sedated, moderately diminished breath sounds bilaterally, no wheezes or crackles. Auscultation: rhonchi; Negative for rales or wheezes Cardio regular rate, regular rhythm, S1 normal heart sound, S2 normal heart sound, no murmurs, no rub, no gallops and no clicks GI normal to inspection, nondistended, normoactive bowel sounds, soft to palpation, non-tender, non-distended and hepatosplenomegaly GI Narrative: PEG tube in situ Extremity normal to inspection and no clubbing, cyanosis or edema Extremity Narrative: Right upper extremity PICC in place General Extremity: no tenderness to palpation of joints or extremities Skin no rashes or lesions noted Skin Narrative: No rashes or abnormal lesions noted General Skin Exam: no breakdown Neuro Neuro Narrative: flat affect, intubated, RASS score is -4 Psych Psych Narrative: flat affect, intubated, on the ventilator. RASS score is -4 Assessment & Plan Assessment/Plan (1) Pulmonary embolus, right: (2) Bacteremia due to Gram-negative bacteria: (3) Acute hypoxic respiratory failure: (4) Pleural effusion, right: PLAN: Plan #Acute hypoxic respiratory failure multifactorial; thought to be due to nonstemi, pneumonia, PE and volume overload CXR was consistent with ARDS remains intubated and sedated. RASS score is -4 being diuresed with IV lasix. unable to wean down FiO2. on propofol and fentanyl. FIO2 toay is 60% remains on ceftazidime and oral minocycline. critical care on board he had PEG tube inserted yesterday. ENT on board and patient to have trach inserted. I spoke to Dr. López today who said he was trying to get the patient on the schedule for next 08/29/2023. # Pneumonia due to multidrug-resistant stenotrophomonas Blood cultures were also positive for this. It is resistant to Bactrim and Levaquin. Now on ceftazidime and minocycline. ID on board. #Non-STEMI: Had cardiac cath on 08/08/2023 which showed normal left main coronary artery and the first diagonal artery with 90% stenosis in first obtuse marginal branch noting 70% stenosis and a totally occluded RCA with [id number] collaterals. on aspirin and statin. #Hyponatremia: resolved. #Hypokalemia:resolved #Acute heart failure preserved ejection fraction: being diuresed with IV lasix #TRENA on CKD stage IIIb: Nephrology on board. Currently on dialysis. #History of PE: Developed GI bleed after being started on blood thinners. Has IVC filter in place. #Right pleural effusion: S/p right thoracentesis with removal of ~1000 cc of fluid. Will monitor. #Acute on chronic anemia due to GI bleed: Aspirin on hold. On Protonix. #Hypertension: On chlorthalidone and amlodipine. These are currently on hold. Metoprolol being continued. will monitor #Invasive urothelial carcinoma: S/p transurethral resection of the tumor. Follow-up with urology on outpatient basis. DVT prophylaxis: IVC filter in place. On PPI. 3:27 PM I had an extensive discussion with patient his was upset because he had not yet had the trach inserted. She says she had been told by critical care that the ET tube could be in for 14 days and it was past the 14 days. I counseled patient's that ENT was trying to get the patient on the schedule for the trach. I did inform her I had spoken to Dr. López today who said he was trying to get the patient on the schedule for 08/29/2023. Patient's also wanted to know if the bacteria he had growing in the sputum had been there from when he was admitted or it developed while he was in the hospital. Patient's counseled that his sputum cultures done on 08/04/2023 showed mixed normal respiratory ramu. Sputum cultures done on 08/11/2023 was positive for stenotrophomonas and had been positive since. Blood cultures were also positive for Stenotrophomonas. Patient's wanted to know when he would come off the ventilator she says she had been told that he would recover but slowly. Again I counseled patient's that patient had had increased oxygen requirements and had required initiation of propofol and fentanyl again and was also on Levophed to help maintaining hemodynamic stability. Patient was therefore critically ill and I advised her that it would be helpful if we took it a day at a time in hopes that he improved but the medical team was doing everything to help patient recover. Patient's was reassured. Nurse informed me that patient's had threatened to get a golf ball molder to emiyl the staff and hospital if anything happened to her . Nurse had made efforts to contact patient advocate. Message left with patient advocate by patient's nurse. Time spent talking to patient's about patient's care plan: 25 mins Charges/Coding Visit Charges Inpatient E&M: 50606 PROLNG IP/OBS E/M EA 15 MIN
--- NOTE | 2023-08-26 10:24 | PCM.PN.REN ---
Subjective Subjective Resting in bed. On hemodialysis. Should be able to tolerate around 1 L fluid removal with dialysis today. Objective Data Objective Data Vital Signs: Vital Signs Temp Pulse Resp BP Pulse Ox O2 Del Method O2 Flow Rate 96.8 F L 93 15 100/62 96 Mechanical Ventilator 60 08/26/23 08:00 08/26/23 09:59 08/26/23 09:59 08/26/23 09:59 08/26/23 09:59 08/26/23 09:59 08/25/23 19:00 FiO2 60 08/26/23 09:59 Oxygen Flow Rate (L/min) 60 Oxygen Delivery Method Mechanical Ventilator Weight: 95.9 kg Body Mass Index (BMI) 34.0 Intake & Output: Intake and Output for Last 24 Hours 08/24/23 08/25/23 08/26/23 23:59 23:59 23:59 Intake Total 1623.47 / 1701.77 2074.53 / 2303.03 1427.00 / 1427.00 Output Total 300 / 375 435 / 460 100 / 100 Balance 1323.47 / 1326.77 1639.53 / 1843.03 1327.00 / 1327.00 Lab / Micro Data 08/26/23 05:50 08/26/23 05:50 Labs: Laboratory Results - last 24 hr 08/25/23 10:57: POC Glucose 101 08/25/23 17:22: POC Glucose 121 H 08/25/23 21:00: Hgb 8.1 L, Hct 27.8 L 08/25/23 23:57: POC Glucose 120 H 08/26/23 05:45: POC Glucose 172 H 08/26/23 05:50: WBC 12.3 H, RBC 3.29 L, Hgb 8.4 L, Hct 28.7 L, MCV 87.2, MCH 25.5 L, MCHC 29.3 L, RDW Std Deviation 58.2 H, RDW Coeff of Raghavendra 19.4 H, Plt Count 189, MPV 12.0, Immature Gran % (Auto) 1.600 H, Neut % (Auto) 85.9 H, Lymph % (Auto) 5.7 L, [place] % (Auto) 4.9, Eos % (Auto) 1.2, Baso % (Auto) 0.7, Absolute Neuts (auto) 10.6 H, Absolute Lymphs (auto) 0.70 L, Nucleated RBC % 0, Sodium 133 L, Potassium 4.7, Chloride 101, Carbon Dioxide 21.0, Anion Gap 11, BUN 105 H*, Creatinine 3.62 H, Estim Creat Clear Calc 20.29, Est GFR (MDRD) Af Amer 21 L, Est GFR (MDRD) Non-Af 18 L, BUN/Creatinine Ratio 29.0 H, Glucose 205 H, Calcium 8.5 Micro: Microbiology 08/17/23 09:00 Blood Culture (Wb) - Pic Blood Culture - Final Stenotrophomonas maltophilia 08/17/23 09:00 Blood Culture (Wb) - Right Wrist Blood Culture - Final No growth in 5 days. 08/12/23 12:29 Wash - Right Middle Lobe Virus Culture - Final 08/20/23 10:15 Stool Stool Occult Blood (CRISTIAN) - Final Occult Blood Positive 08/17/23 09:15 Sputum, Induced/Lukens Gram Stain - Final 08/17/23 09:15 Sputum, Induced/Lukens Respiratory Culture - Preliminary Stenotrophomonas maltophilia 08/11/23 15:14 Fluid - Pleural (Lung) Gram Stain - Final 08/11/23 15:14 Fluid - Pleural (Lung) Body Fluid Culture - Final Culture exhibits no growth. 08/11/23 15:14 Fluid - Pleural (Lung) Anaerobic Culture - Final No growth in 5 days. 08/12/23 12:29 Wash - Bronchial Gram Stain - Final 08/12/23 12:29 Wash - Bronchial Respiratory Culture - Final Stenotrophomonas maltophilia 08/11/23 09:59 Sputum, Induced/Lukens Gram Stain - Final 08/11/23 09:59 Sputum, Induced/Lukens Respiratory Culture - Final Stenotrophomonas maltophilia 08/12/23 10:49 Nasal Secretion SARS-CoV-2 Antigen (Rapid) - Final 08/04/23 00:00 Sputum, Expectorated/Coughed Gram Stain - Final 08/04/23 00:00 Sputum, Expectorated/Coughed Respiratory Culture - Final 08/03/23 21:57 Urine, Random Legionella Antigen - Final 08/03/23 21:57 Urine, Random Streptococcus pneumoniae Antigen (M - Final 08/03/23 18:30 Mucosa - Nose SARS-CoV-2, Influenza & RSV (PCR) - Final Radiography Diagnostic Testing: Radiology Impression Chest X-Ray 08/26/23 05:55 IMPRESSION: Interval removal of NG tube. Stable bilateral moderate mid to lower lung airspace disease, not significantly changed when allowing for a lesser degree of inspiration. Interval development of a very small right pleural effusion. 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 Terry (after surgery baseline creatinine around 2.0), presented emergency room on 08/02 with complaints of shortness of breath with exertion, admitted for non-STEMI, suspected pneumonia. - TRENA superimposed on CKD; TRENA likely from ischemic ATN. Renal serologies p-ANCA, c-ANCA, double-stranded DNA, glomerular basement membrane antibody, C3 all normal. C4 complement slightly elevated at 46. Patient was initiated on hemodialysis 08/11 (serum creatinine peaked 4.98 on 08/11) as renal function was worsening and urine output declining. Patient dialyzed yesterday with minimal fluid removal due to low blood pressures. Undergoing dialysis today. He is on Levophed 5mcg and should be able to tolerate ~1L UF with HD today. Patient has some urine output but that seems to be declining. Weights are trending up; admission weight around 88 kg, current weight around 95 kg. If no improvement in blood pressures and/or worsening volume status patient may not be able to tolerate intermittent dialysis and may tolerate CRRT instead. Reviewed CXR from this am: Interval development of small right pleural effusion. O2 requirements unchanged/ unable to wean down FiO2, FiO2 60%. -Bacteremia due to gram-negative bacteria/ stenotrophomonas; antibiotics per ID, currently IV ceftazidime and p.o. minocycline -ENT and GI consulted for tracheostomy and PEG tube placement -If patient remains dialysis dependent he will need tunneled HD catheter placed before hospital discharge. Needs to clear bacteremia before tunneled dialysis placement. Repeat cultures sent 08/24, pending
[2023-08-26] MEDS: Heparin 10,000 UNITS/10 ML Vial IV (10:27)
[2023-08-26] MEDS: NORMAL SALINE 0.9% IV (10:53)
[2023-08-26] MEDS: CEFTAZIDIME IV (10:53)
[2023-08-26] MEDS: Chlorhexidine 15 ML PO ×2 (10:57→20:35)
[2023-08-26] MEDS: CHLORHEXIDINE GLUC 2% CLOTH 1 EACH TOWELETTE TOPICAL (11:03)
[2023-08-26] MEDS: QUEtiapine 25 MG Tablet GT ×2 (11:04→20:36)
[2023-08-26] MEDS: NEPRO TUBE FEED 1,000 ML 25 ML GT (11:07)
[2023-08-26] MEDS: Polyethylene Glycol 3350 17 GM PACKET PO (11:14)
[2023-08-26] MEDS: MINOCYCLINE HCL GT ×2 (11:15→20:36)
[2023-08-26] MEDS: [UNRECOGNIZED DRUG - OTHER] GT ×2 (11:15→20:36)
[2023-08-26] MEDS: Pantoprazole Sodium 40 MG in 0.9% Normal Saline (100mL MB+) 100 ML 330 MG IV ×2 (11:32→20:35)
--- NOTE | 2023-08-26 11:40 | CASEMGMT ---
Addendum entered by Alysha Méndez 08/26/23 15:44: [facility] in [place] notified that the pt is planned for trach placement on Monday 08/28. Updated progress notes sent via [facility] at this time. Original Note: Dr. Ledezma states that she talked to ENT (Dr. López) and he plans to ge the pt into the OR on Tuesday for trach placement.
--- NOTE | 2023-08-26 11:48 | PN.CC_ITS ---
Objective Data Objective Data Vital Signs: Vital Signs Last response 3 Temperature 36.0 C L 08/26/23 08:00 Temperature Source Temporal 08/26/23 08:00 Pulse Rate 103 H 08/26/23 11:00 Pulse Strength Normal (2+) 08/26/23 10:00 Respiratory Rate 17 08/26/23 11:00 Respiratory Effort Mechanically Ventilated 08/26/23 10:45 Respiratory Depth Normal 08/26/23 07:11 Respiratory Pattern Normal 08/26/23 07:11 Blood Pressure 91/63 08/26/23 11:00 Blood Pressure Mean 72 08/26/23 11:00 Blood Pressure Source Monitor 08/26/23 11:00 Blood Pressure Position Semi-Fowlers 08/26/23 11:00 Blood Pressure Location Left Arm 08/26/23 11:00 Pulse Ox 96 08/26/23 11:00 Oxygen Delivery Method Mechanical Ventilator 08/26/23 11:00 Oxygen Flow Rate (L/min) 60 08/25/23 19:00 Fraction of Inspired Oxygen (FIO2) 60 08/26/23 11:00 I&O: I&O Last 24 Hours 3 08/25/23 08/25/23 08/26/23 11:59 23:59 11:59 Intake Total 998.67 / 2303.03 1075.86 / 2303.03 1548.05 / 1548.05 Output Total 395 / 460 40 / 460 1110 / 1110 Balance 603.67 / 1843.03 1035.86 / 1843.03 438.05 / 438.05 I&O: Total Stay 3 08/03/23 13:43 thru 08/26/23 11:40 Intake Total 55763.84 Output Total 64119 Balance 85224.84 Current Meds Ordered / Administered: Current meds ordered / Administered 3 Generic Name Dose Route Start Last Admin Trade Name Freq PRN Reason Stop Dose Admin Acetaminophen 650 mg 08/12/23 03:35 Acetaminophen 650 Mg/20 Ml Udc GT Q6H PRN PRN Pain 1-10 Or Fever >100.7 Albuterol Sulfate 2.5 mg 08/03/23 17:36 08/21/23 22:41 Albuterol 2.5 Mg/3 Ml Vial.Neb. INHALATION 2.5 mg Q2H PRN PRN Administration SHORTNESS OF BREATH Aspirin 81 mg 08/12/23 08:00 08/21/23 08:13 Aspirin 81 Mg Tab.Chew GT 81 mg BREAKFAST REY Administration Atorvastatin Calcium 40 mg 08/12/23 22:00 08/25/23 21:44 Atorvastatin Calcium 40 Mg Tablet GT 40 mg QHS REY Administration Calamine/Phenol 1 applic 08/13/23 22:00 08/26/23 05:40 Menthol/Lanolin/Calamine/Znox 113 Gm Tube TOPICAL 1 applic TID REY Administration Protocol Chlorhexidine Gluconate 1 each 08/11/23 10:00 08/26/23 11:03 Chlorhexidine Gluc 2% Cloth 1 Each Towelette TOPICAL 1 each DAILY REY Administration Chlorhexidine Gluconate 15 ml 08/11/23 22:00 08/26/23 10:57 Chlorhexidine 15 Ml PO 15 ml BID REY Administration Minocycline HCl 2,000 mg/ 0 mg 08/24/23 22:00 08/26/23 11:15 Compound Med 200 ml GT 20 ml Q12 REY Administration Dextrose 0 gm 08/16/23 09:22 Dextrose 50%-Water 25 Gm/50 Ml Disp.Syrin IV X1 PRN Hypoglycemia Protocol Glucagon 1 mg 08/16/23 09:22 Glucagon 1 Mg/Ml Syringe IM X1 PRN Hypoglycemia Hemodialysis Solution 6 bag 08/26/23 06:45 08/26/23 07:32 Pureflow B 2k Dialysis Soln 1 Bag PF 08/26/23 18:42 5 bag UD REY Administration Protocol Heparin Sodium (Porcine) 1,000 - 3,000 units 08/26/23 06:41 08/26/23 10:27 Heparin 10,000 Units/10 Ml Vial IV 08/26/23 18:41 1,600 units X1 PRN Administration HD catheter closing Sodium Chloride 250 mls @ 15 mls/hr 08/04/23 23:09 08/08/23 02:14 IV Infused .[id number] PRN Infusion Additional IVPB Infusion Sodium Chloride 250 mls @ 15 mls/hr 08/04/23 23:09 08/26/23 08:12 IV 15 mls/hr .[id number] PRN Administration Saline Flush cefTAZidime 1 gm/ Sodium 60 mls @ 120 mls/hr 08/20/23 14:00 08/26/23 11:40 Chloride IV Infused DAILY REY Infusion Pantoprazole Sodium 40 mg/ 110 mls @ 330 mls/hr 08/20/23 22:00 08/26/23 11:32 Sodium Chloride IV 330 mls/hr Q12 REY Administration Propofol 1,000 mg in 100 mls @ 5.754 mls/hr 08/22/23 20:10 08/26/23 11:00 Diprivan CONT INF 20 mcg/kg/min .Q12H REY 11.5 mls/hr Titration Protocol 10 MCG/KG/MIN Enteral Nutritional Formula 1,000 mls @ 45 mls/hr 08/23/23 16:00 08/26/23 11:07 Nepro Carb Steady GT 25 mls/hr .[id number] REY Administration Fentanyl 100 mls @ 10 mls/hr 08/25/23 07:45 08/26/23 11:00 CONT INF 125 mcg/hr UD REY 12.5 mls/hr Titration Protocol 100 MCG/HR Norepinephrine Bitartrate 8 mg 250 mls @ 9.375 mls/hr 08/25/23 20:55 08/26/23 11:00 / Sodium Chloride CONT INF 5 mcg/min .[id number] REY 9.4 mls/hr Titration Protocol 5 MCG/MIN Insulin Glargine 26 unit 08/20/23 10:00 08/25/23 10:07 Insulin Glargine-Yfgn 100 Unit/Ml Pen SC Not Given DAILY [facility] Insulin Human Lispro 0 unit 08/16/23 12:00 08/26/23 05:45 Insulin Lispro 100 Unit/Ml Insuln.Pen SC 1 u Q6 [facility] Administration Protocol Metoprolol Tartrate 12.5 mg 08/19/23 10:00 08/26/23 10:44 Metoprolol Tartrate 25 Mg Tablet GT Not Given BID [facility] Protocol Ondansetron HCl 4 mg 08/03/23 17:36 08/17/23 01:35 Ondansetron 4 Mg/2 Ml Vial IV 4 mg Q8H PRN PRN Administration NAUSEA/VOMITING Polyethylene Glycol 17 gm 08/26/23 10:08 08/26/23 11:14 Polyethylene Glycol 3350 17 Gm Packet PO 17 gm DAILY PRN Administration Constipation Quetiapine Fumarate 25 mg 08/24/23 22:00 08/26/23 11:04 Quetiapine 25 Mg Tablet GT 25 mg BID [facility] Administration Protocol Sodium Chloride 10 - 40 ml 08/03/23 17:59 08/26/23 10:26 0.9% Saline Lock 10 Ml Syringe IV 20 ml UD PRN Administration SALINE FLUSH Sodium Chloride 1,000 ml 08/26/23 06:45 08/26/23 07:31 0.9% Normal Saline 1,000 Ml Iv.Soln. OPERA.SITE 08/26/23 18:41 1,000 ml X1 REY Administration Sodium Chloride 200 ml 08/26/23 06:41 0.9% Normal Saline 100 Ml Iv.Soln. IV 08/26/23 18:41 X1 PRN to maintain SBP >90mmHg during Dialysis Lab / Micro Data 08/26/23 05:50 08/26/23 05:50 Labs: Laboratory Results - last 24 hr 08/25/23 17:22: POC Glucose 121 H 08/25/23 21:00: Hgb 8.1 L, Hct 27.8 L 08/25/23 23:57: POC Glucose 120 H 08/26/23 05:45: POC Glucose 172 H 08/26/23 05:50: WBC 12.3 H, RBC 3.29 L, Hgb 8.4 L, Hct 28.7 L, MCV 87.2, MCH 25.5 L, MCHC 29.3 L, RDW Std Deviation 58.2 H, RDW Coeff of Raghavendra 19.4 H, Plt Count 189, MPV 12.0, Immature Gran % (Auto) 1.600 H, Neut % (Auto) 85.9 H, Lymph % (Auto) 5.7 L, Burnet % (Auto) 4.9, Eos % (Auto) 1.2, Baso % (Auto) 0.7, Absolute Neuts (auto) 10.6 H, Absolute Lymphs (auto) 0.70 L, Nucleated RBC % 0, Sodium 133 L, Potassium 4.7, Chloride 101, Carbon Dioxide 21.0, Anion Gap 11, BUN 105 H*, Creatinine 3.62 H, Estim Creat Clear Calc 20.29, Est GFR (MDRD) Af Amer 21 L , Est GFR (MDRD) Non-Af 18 L, BUN/Creatinine Ratio 29.0 H, Glucose 205 H, Calcium 8.5 Imaging Radiology Impression Chest X-Ray 08/26/23 05:55 IMPRESSION: Interval removal of NG tube. Stable bilateral moderate mid to lower lung airspace disease, not significantly changed when allowing for a lesser degree of inspiration. Interval development of a very small right pleural effusion. Electronically Signed: Nacho Cramer MD at 7:16 EDT , Assessment and Plan . Assessment and plan: Patient seen and examined Chart and data reviewed Prolonged critical illness and MOF, including prolonged need for MV support Sedated Low dose NE for BP support today HD performed w/ around 1000 mL UF MV 8 LPM, PIP 35, FiO2 0.8 pCXR reviewed today Awaiting placement of tracheostomy PEG has been placed EXAM GEN NAD VS as above HEENT DANIEL NECK obese COR RRR CHEST coarse ABD soft EXT pitting edema JESICA sedated ASSESSMENT/REC 1. Acute respiratory failure requiring prolonged MV support 2. MV dependence 3. Renal insufficiency requiring RESEARCH GENETICIST 4. Hypervolemia 5. Pulmonary edema 6. Recent bleeding requiring cessation of A/C and placement IVC filter 7. VTED 8. Recent VAP w/ bacteremia - S malto -MV support -reduce FiO2 as able -sedation -tracheostomy placement pending -RESEARCH GENETICIST w/ UF - (?) CRRT -TF via PEG -ABX -eventual LTACH Critical Care Time: 50 min The entirety of this encounter was done via Telemedicine
[2023-08-26] MEDS: Insulin Glargine-YFGN 100 UNIT/ML Pen 26 UNIT SC (12:30)
[2023-08-26 12:52] LABS: Bedside Glucose 157 mg/dL (74-106)
[2023-08-26] MEDS: fentaNYL drip 100 ML 12.5 MCG CONT INF (14:50)
[2023-08-26] MEDS: Propofol 10MG/Ml 1,000 MG/100 ML Bottle 11.5 MG CONT INF (14:55)
--- NOTE | 2023-08-26 15:47 | NURSING ---
Addendum entered by Gisell Mckee 08/26/23 17:00: This RN called Loi, patient advocate at 1415- voicemail left. Original Note: 1400: Patient , Duc, in room asking this RN when he will be getting a trach. This RN told Duc that a date/time has not been told to nursing staff. The patients became upset that it has not been done yet. At one point she said Maybe I should call a optical instrument assembler. This RN told the that will make some phone calls to get more information for her. Dr. Ledezma called and per Dr. Ledezma- Dr. López is going to try to schedule trach for Tuesday. Surgery charge nurse called, they are unaware of a possible trach at this time. This RN attempted to call Dr. López, however he was not radiotelephone technical operator. 1430: Dr. Ledezma called again and this RN asked for her to come talk to the patients . While waiting on MD, Duc appeared frustrated and told this RN that she feels like she has not had the ability to talk to the physicians about her husbands medical plan. She became emotional, crying. Patients then made a statement If anything happens to my , Im suing this hospital. This RN reassured Duc that Dr. Ledezma is coming to talk to her and to ask the MD all the questions/concerns she has. This RN offered Duc snacks/drinks. Fresh ice water given to her. 1500-Dr. Ledezma on unit and spoke with Duc, RN not present during conversation
[2023-08-26 18:04] LABS: Bedside Glucose 164 mg/dL (74-106)
[2023-08-26 18:12] LABS: Magnesium 2.4 mg/dL (1.6-2.6); Phosphorus 6.2 mg/dL (2.5-4.9); Potassium 4.4 mmol/L (3.5-5.1)
[2023-08-26] MEDS: Atorvastatin Calcium 40 MG Tablet GT (20:36)
[2023-08-27] VITALS (46 sets, daily range): BP systolic 74–120; BP diastolic 56–76; PULSE 68–100; RESP 16–23; TEMP 36.1–36.7; O2SAT 91–96; BMI 34.6
[2023-08-27] MEDS: Norepinephrine 8 MG in 0.9% Normal Saline (250mL Bag) 242 ML 15 MG CONT INF
[2023-08-27 00:08] LABS: Bedside Glucose 164 mg/dL (74-106)
[2023-08-27] MEDS: Propofol 10MG/Ml 1,000 MG/100 ML Bottle 8.6 MG CONT INF ×3 (01:00→21:25)
[2023-08-27 04:36] LABS: Absolute Lymphocyte Count 0.77 X10^3/uL (0.83-4.51); Absolute Neutrophil Count 10.6 X10^3/uL (2.0-7.7); Basophil# 0.12 X10^3/uL; Eosinophil# 0.19 X10^3/uL; Eosinophils% 1.5 % (0-5); Hematocrit 28.1 % (40-54); Hemoglobin 8.4 g/dL (13.0-16.5); Lymphocyte # 0.77 X10^3/ul (0.83-4.51); Lymphocyte % 6.1 % (19-41); Mean Corp Hgb Conc 29.9 g/dL (32-36); Mean Corpuscular Hgb 26.1 pg (27.0-32.0); Mean Corpuscular Volume 87.3 fL (80-94); Mean Platelet Vol. 11.6 fl (6.2-12.0); Monocyte# 0.65 X10^3/uL; Monocyte% 5.2 % (0-10); NRBC Flagged by Analyzer 0.2 % (0-5); Neutrophil # 10.59 X10^3/uL (2.7-7.7); Neutrophil % 84.3 % (47-70); Platelet Count 148 K/mm3 (150-450); RBC Distribution Width CV 19.3 % (11.6-14.6); RBC Distribution Width SD 57.7 fl (35.1-43.9); Red Blood Count 3.22 M/mm3 (4.6-6.2); White Blood Count 12.6 K/mm3 (4.4-11.0)
[2023-08-27 04:46] LABS: Bedside Glucose 135 mg/dL (74-106)
[2023-08-27 04:51] LABS: Anion Gap 12 (5-15); BUN 91 mg/dL (7-18); BUN/Creat Ratio 27.2 RATIO (10-20); Calcium,Total 8.2 mg/dL (8.5-10.1); Chloride 101 mmol/L (98-107); Creatinine, Serum 3.34 mg/dL (0.70-1.30); EST Glomerular Filtration Rate 19 mL/min (>60); Est Glom Filt Rate - Afr Amer 24 mL/min (>60); Estimated Creatinine Clearance 21.88 ml/min; Glucose 149 mg/dL (74-106); Potassium 4.6 mmol/L (3.5-5.1); Sodium Level 135 mmol/L (136-145)
[2023-08-27] MEDS: Albuterol 2.5 MG/3 ML VIAL.NEB. INHALATION ×4 (06:43→19:26)
[2023-08-27] MEDS: Menthol/Lanolin/Calamine/Znox 113 GM Tube 1 APPLIC TOPICAL ×3 (07:03→20:59)
[2023-08-27] MEDS: Insulin Glargine-YFGN 100 UNIT/ML Pen 26 UNIT SC (07:29)
[2023-08-27] MEDS: Metoprolol Tartrate 25 MG Tablet 12.5 MG GT (07:29)
[2023-08-27] MEDS: QUEtiapine 25 MG Tablet GT ×2 (07:30→20:59)
[2023-08-27] MEDS: Pantoprazole Sodium 40 MG in 0.9% Normal Saline (100mL MB+) 100 ML 330 MG IV ×2 (07:36→21:02)
[2023-08-27] MEDS: fentaNYL drip 100 ML 10 MCG CONT INF ×2 (07:36→18:22)
[2023-08-27] MEDS: CHLORHEXIDINE GLUC 2% CLOTH 1 EACH TOWELETTE TOPICAL ×2 (07:38→23:58)
[2023-08-27] MEDS: Chlorhexidine 15 ML PO ×2 (07:39→20:58)
[2023-08-27] MEDS: [UNRECOGNIZED DRUG - OTHER] GT ×2 (07:41→20:59)
[2023-08-27] MEDS: MINOCYCLINE HCL GT ×2 (07:41→20:59)
[2023-08-27] MEDS: CEFTAZIDIME IV (09:33)
[2023-08-27] MEDS: NORMAL SALINE 0.9% IV (09:33)
[2023-08-27 11:35] LABS: Bedside Glucose 128 mg/dL (74-106)
--- NOTE | 2023-08-27 12:22 | PN_ITS ---
Subjective Subjective Patient seen and examined. He remains intubated and sedated. RASS score is 0 today. FiO2 down to 55% today. Unable to do review of systems. Objective Data Objective Data Vital Signs: Vital Signs Temp Pulse Resp BP Pulse Ox O2 Del Method O2 Flow Rate 98.1 F 97 16 97/63 94 Mechanical Ventilator 60 08/27/23 08:00 08/27/23 12:00 08/27/23 12:00 08/27/23 12:00 08/27/23 11:53 08/27/23 12:00 08/25/23 19:00 FiO2 50 08/27/23 12:00 Oxygen Flow Rate (L/min) 60 Oxygen Delivery Method Mechanical Ventilator Weight: 215 lb 9.793 oz Body Mass Index (BMI) 34.6 Intake & Output: Intake and Output for Last 24 Hours 08/25/23 08/26/23 08/27/23 23:59 23:59 23:59 Intake Total 2074.53 / 2303.03 2657.24 / 2875.84 1529.15 / 1529.15 Output Total 435 / 460 1160 / 1160 100 / 100 Balance 1639.53 / 1843.03 1497.24 / 1715.84 1429.15 / 1429.15 Lab / Micro Data 08/27/23 04:20 08/27/23 04:20 Labs: Laboratory Results - last 24 hr 08/26/23 12:27: POC Glucose 157 H 08/26/23 17:35: Potassium 4.4, Phosphorus 6.2 H, Magnesium 2.4 08/26/23 17:39: POC Glucose 164 H 08/26/23 23:47: POC Glucose 164 H 08/27/23 04:20: WBC 12.6 H, RBC 3.22 L, Hgb 8.4 L, Hct 28.1 L, MCV 87.3, MCH 26.1 L, MCHC 29.9 L, RDW Std Deviation 57.7 H, RDW Coeff of Raghavendra 19.3 H, Plt Count 148 L, MPV 11.6, Immature Gran % (Auto) 1.900 H, Neut % (Auto) 84.3 H, L ymph % (Auto) 6.1 L, Schleicher % (Auto) 5.2, Eos % (Auto) 1.5, Baso % (Auto) 1.0, A bsolute Neuts (auto) 10.6 H, Absolute Lymphs (auto) 0.77 L, Nucleated RBC % 0.2, Sodium 135 L, Potassium 4.6, Chloride 101, Carbon Dioxide 22.0, Anion Gap 12, B UN 91 H, Creatinine 3.34 H, Estim Creat Clear Calc 21.88, Est GFR (MDRD) Af Amer 24 L, Est GFR (MDRD) Non-Af 19 L, BUN/Creatinine Ratio 27.2 H, Glucose 149 H, C alcium 8.2 L 08/27/23 04:25: POC Glucose 135 H 08/27/23 11:14: POC Glucose 128 H Micro: Microbiology 08/25/23 11:10 Blood Culture (Wb) - Left Hand Blood Culture - Preliminary No growth in 48 hours. 08/25/23 10:15 Blood Culture (Wb) - Pic Blood Culture - Preliminary No growth in 48 hours. 08/17/23 09:00 Blood Culture (Wb) - Pic Blood Culture - Final Stenotrophomonas maltophilia 08/17/23 09:00 Blood Culture (Wb) - Right Wrist Blood Culture - Final No growth in 5 days. 08/12/23 12:29 Wash - Right Middle Lobe Virus Culture - Final 08/20/23 10:15 Stool Stool Occult Blood (CRISTIAN) - Final Occult Blood Positive 08/17/23 09:15 Sputum, Induced/Lukens Gram Stain - Final 08/17/23 09:15 Sputum, Induced/Lukens Respiratory Culture - Preliminary Stenotrophomonas maltophilia 08/11/23 15:14 Fluid - Pleural (Lung) Gram Stain - Final 08/11/23 15:14 Fluid - Pleural (Lung) Body Fluid Culture - Final Culture exhibits no growth. 08/11/23 15:14 Fluid - Pleural (Lung) Anaerobic Culture - Final No growth in 5 days. 08/12/23 12:29 Wash - Bronchial Gram Stain - Final 08/12/23 12:29 Wash - Bronchial Respiratory Culture - Final Stenotrophomonas maltophilia 08/11/23 09:59 Sputum, Induced/Lukens Gram Stain - Final 08/11/23 09:59 Sputum, Induced/Lukens Respiratory Culture - Final Stenotrophomonas maltophilia 08/12/23 10:49 Nasal Secretion SARS-CoV-2 Antigen (Rapid) - Final 08/04/23 00:00 Sputum, Expectorated/Coughed Gram Stain - Final 08/04/23 00:00 Sputum, Expectorated/Coughed Respiratory Culture - Final 08/03/23 21:57 Urine, Random Legionella Antigen - Final 08/03/23 21:57 Urine, Random Streptococcus pneumoniae Antigen (M - Final 08/03/23 18:30 Mucosa - Nose SARS-CoV-2, Influenza & RSV (PCR) - Final Physical Exam Narrative Const alert Constitutional Narrative: intubated, sedated, RASS score today is 0 HEENT normocephalic, head/scalp atraumatic and oropharynx normal Mouth: dry mucous membranes Eyes PERRL, EOMs intact bilaterally and conjunctivae normal Eyes Narrative: Neck no lymphadenopathy, supple, no JVD, thyroid normal and no carotid bruits Neck Narrative: General: trachea midline Lymph Lymphatic: no lymphadenopathy noted and no lymphedema noted Resp normal respiratory effort, no retractions, no use of accessory muscles and No clear to auscultation bilaterally Resp Narrative: remains intubated and sedated, moderately diminished breath sounds bilaterally, no wheezes or crackles. FiO2 down to 50% Cardio regular rate, regular rhythm, S1 normal heart sound, S2 normal heart sound and no murmurs GI normal to inspection, nondistended, normoactive bowel sounds, soft to palpation, non-tender, non-distended and hepatosplenomegaly GI Narrative: PEG tube in situ Extremity normal to inspection and no clubbing, cyanosis or edema Extremity Narrative: Right upper extremity PICC in place General Extremity: no tenderness to palpation of joints or extremities Skin no rashes or lesions noted Skin Narrative: No rashes or abnormal lesions noted General Skin Exam: no breakdown Neuro Neuro Narrative: flat affect, intubated, RASS score is 0 Sensorium / Orientation: awake, alert, oriented to person, oriented to place and oriented to time Speech: speech normal Psych Psych Narrative: flat affect, intubated, on the ventilator. RASS score is 0 Assessment & Plan Assessment/Plan (1) Pulmonary embolus, right: (2) Bacteremia due to Gram-negative bacteria: (3) Acute hypoxic respiratory failure: (4) Pleural effusion, right: PLAN: Plan #Acute hypoxic respiratory failure * multifactorial; thought to be due to nonstemi, pneumonia, PE and volume overload * CXR was consistent with ARDS * remains intubated and sedated. RASS score is 0 toay * being diuresed with IV lasix. * unable to wean down FiO2. * on propofol and fentanyl. FIO2 today is 60% * remains on ceftazidime and oral minocycline. * critical care on board * he had PEG tube inserted. ENT on board and patient to have trach inserted. I spoke to Dr. López yesterday who said he was trying to get the patient on the schedule for next 08/29/2023. * * #Shock * likely undifferentiated. * Requiring Levophed to maintain hemodynamic stability. * Titrate Levophed to maintain a MAP of more than 65%. * # Pneumonia due to multidrug-resistant stenotrophomonas * Blood cultures were also positive for this. It is resistant to Bactrim and Levaquin. Now on ceftazidime and minocycline. ID on board. * repeat blood cultures are negative. * #Non-STEMI: * Had cardiac cath on 08/08/2023 which showed normal left main coronary artery and the first diagonal artery with 90% stenosis in first obtuse marginal branch noting 70% stenosis and a totally occluded RCA with [id number] collaterals. * on aspirin and statin. * #Hyponatremia: resolved. #Hypokalemia:resolved #Acute heart failure preserved ejection fraction: being diuresed with IV lasix #TRENA on CKD stage IIIb: Nephrology on board. Currently on dialysis. #History of PE: Developed GI bleed after being started on blood thinners. Has IVC filter in place. #Right pleural effusion: S/p right thoracentesis with removal of ~1000 cc of fluid. Will monitor. #Acute on chronic anemia due to GI bleed: Aspirin on hold. On Protonix. #Hypertension: On chlorthalidone and amlodipine. These are currently on hold. Metoprolol being continued. will monitor #Invasive urothelial carcinoma: S/p transurethral resection of the tumor. Follow-up with urology on outpatient basis. DVT prophylaxis: IVC filter in place. SCDs Charges/Coding Visit Charges Inpatient E&M: 79592 Subs Hosp L3
--- NOTE | 2023-08-27 12:34 | PN.CC_ITS ---
Objective Data Objective Data Vital Signs: Vital Signs Last response 3 Temperature 36.7 C 08/27/23 08:00 Temperature Source Temporal 08/27/23 08:00 Pulse Rate 97 08/27/23 12:00 Pulse Strength Normal (2+) 08/27/23 08:00 Respiratory Rate 16 08/27/23 12:00 Respiratory Effort Mechanically Ventilated 08/27/23 07:57 Respiratory Depth Normal 08/26/23 07:11 Respiratory Pattern Normal 08/27/23 11:53 Blood Pressure 97/63 08/27/23 12:00 Blood Pressure Mean 74 08/27/23 12:00 Blood Pressure Source Monitor 08/27/23 12:00 Blood Pressure Position Semi-Fowlers 08/27/23 12:00 Blood Pressure Location Left Arm 08/27/23 12:00 Pulse Ox 94 08/27/23 11:53 Oxygen Delivery Method Mechanical Ventilator 08/27/23 12:00 Oxygen Flow Rate (L/min) 60 08/25/23 19:00 Fraction of Inspired Oxygen (FIO2) 50 08/27/23 12:00 I&O: I&O Last 24 Hours 3 08/26/23 08/27/23 08/27/23 23:59 11:59 23:59 Intake Total 1109.19 / 2875.84 1507.67 / 1529.15 21.48 / 1529.15 Output Total 50 / 1160 100 / 100 Balance 1059.19 / 1715.84 1407.67 / 1429.15 21.48 / 1429.15 I&O: Total Stay 3 08/03/23 13:43 thru 08/27/23 12:00 Intake Total 12135.18 Output Total 25528 Balance 80619.18 Current Meds Ordered / Administered: Current meds ordered / Administered 3 Generic Name Dose Route Start Last Admin Trade Name Freq PRN Reason Stop Dose Admin Acetaminophen 650 mg 08/12/23 03:35 Acetaminophen 650 Mg/20 Ml Udc GT Q6H PRN PRN Pain 1-10 Or Fever >100.7 Albuterol Sulfate 2.5 mg 08/03/23 17:36 08/27/23 11:52 Albuterol 2.5 Mg/3 Ml Vial.Neb. INHALATION 2.5 mg Q2H PRN PRN Administration SHORTNESS OF BREATH Aspirin 81 mg 08/12/23 08:00 08/21/23 08:13 Aspirin 81 Mg Tab.Chew GT 81 mg BREAKFAST REY Administration Atorvastatin Calcium 40 mg 08/12/23 22:00 08/26/23 20:36 Atorvastatin Calcium 40 Mg Tablet GT 40 mg QHS REY Administration Calamine/Phenol 1 applic 08/13/23 22:00 08/27/23 07:03 Menthol/Lanolin/Calamine/Znox 113 Gm Tube TOPICAL 1 applic TID REY Administration Protocol Chlorhexidine Gluconate 1 each 08/11/23 10:00 08/27/23 07:38 Chlorhexidine Gluc 2% Cloth 1 Each Towelette TOPICAL 1 each DAILY REY Administration Chlorhexidine Gluconate 15 ml 08/11/23 22:00 08/27/23 07:39 Chlorhexidine 15 Ml PO 15 ml BID REY Administration Minocycline HCl 2,000 mg/ 0 mg 08/24/23 22:00 08/27/23 07:41 Compound Med 200 ml GT 20 ml Q12 REY Administration Dextrose 0 gm 08/16/23 09:22 Dextrose 50%-Water 25 Gm/50 Ml Disp.Syrin IV X1 PRN Hypoglycemia Protocol Glucagon 1 mg 08/16/23 09:22 Glucagon 1 Mg/Ml Syringe IM X1 PRN Hypoglycemia Sodium Chloride 250 mls @ 15 mls/hr 08/04/23 23:09 08/08/23 02:14 IV Infused .[id number] PRN Infusion Additional IVPB Infusion Sodium Chloride 250 mls @ 15 mls/hr 08/04/23 23:09 08/27/23 02:03 IV Infused .[id number] PRN Infusion Saline Flush cefTAZidime 1 gm/ Sodium 60 mls @ 120 mls/hr 08/20/23 14:00 08/27/23 10:12 Chloride IV Infused DAILY REY Infusion Pantoprazole Sodium 40 mg/ 110 mls @ 330 mls/hr 08/20/23 22:00 08/27/23 08:10 Sodium Chloride IV Infused Q12 REY Infusion Propofol 1,000 mg in 100 mls @ 5.754 mls/hr 08/22/23 20:10 08/27/23 12:00 Diprivan CONT INF 15 mcg/kg/min .Q12H REY 8.6 mls/hr Titration Protocol 10 MCG/KG/MIN Enteral Nutritional Formula 1,000 mls @ 45 mls/hr 08/23/23 16:00 08/27/23 07:28 Nepro Carb Steady GT 25 mls/hr .[id number] REY Infusion Fentanyl 100 mls @ 10 mls/hr 08/25/23 07:45 08/27/23 12:00 CONT INF 100 mcg/hr UD REY 10 mls/hr Titration Protocol 100 MCG/HR Norepinephrine Bitartrate 8 mg 250 mls @ 9.375 mls/hr 08/25/23 20:55 08/27/23 12:00 / Sodium Chloride CONT INF 4 mcg/min .[id number] REY 7.5 mls/hr Titration Protocol 5 MCG/MIN Insulin Glargine 26 unit 08/20/23 10:00 08/27/23 07:29 Insulin Glargine-Yfgn 100 Unit/Ml Pen SC 26 unit DAILY REY Administration Insulin Human Lispro 0 unit 08/16/23 12:00 08/27/23 11:15 Insulin Lispro 100 Unit/Ml Insuln.Pen SC Not Given Q6 [facility] Protocol Metoprolol Tartrate 12.5 mg 08/19/23 10:00 08/27/23 07:29 Metoprolol Tartrate 25 Mg Tablet GT 12.5 mg BID REY Administration Protocol Ondansetron HCl 4 mg 08/03/23 17:36 08/17/23 01:35 Ondansetron 4 Mg/2 Ml Vial IV 4 mg Q8H PRN PRN Administration NAUSEA/VOMITING Polyethylene Glycol 17 gm 08/26/23 10:08 08/26/23 11:14 Polyethylene Glycol 3350 17 Gm Packet PO 17 gm DAILY PRN Administration Constipation Quetiapine Fumarate 25 mg 08/24/23 22:00 08/27/23 07:30 Quetiapine 25 Mg Tablet GT 25 mg BID [facility] Administration Protocol Sodium Chloride 10 - 40 ml 08/03/23 17:59 08/26/23 10:26 0.9% Saline Lock 10 Ml Syringe IV 20 ml UD PRN Administration SALINE FLUSH Lab / Micro Data 08/27/23 04:20 08/27/23 04:20 Labs: Laboratory Results - last 24 hr 08/26/23 12:27: POC Glucose 157 H 08/26/23 17:35: Potassium 4.4, Phosphorus 6.2 H, Magnesium 2.4 08/26/23 17:39: POC Glucose 164 H 08/26/23 23:47: POC Glucose 164 H 08/27/23 04:20: WBC 12.6 H, RBC 3.22 L, Hgb 8.4 L, Hct 28.1 L, MCV 87.3, MCH 26.1 L, MCHC 29.9 L, RDW Std Deviation 57.7 H, RDW Coeff of Raghavendra 19.3 H, Plt Count 148 L, MPV 11.6, Immature Gran % (Auto) 1.900 H, Neut % (Auto) 84.3 H, L ymph % (Auto) 6.1 L, Cavalier % (Auto) 5.2, Eos % (Auto) 1.5, Baso % (Auto) 1.0, A bsolute Neuts (auto) 10.6 H, Absolute Lymphs (auto) 0.77 L, Nucleated RBC % 0.2, Sodium 135 L, Potassium 4.6, Chloride 101, Carbon Dioxide 22.0, Anion Gap 12, B UN 91 H, Creatinine 3.34 H, Estim Creat Clear Calc 21.88, Est GFR (MDRD) Af Amer 24 L, Est GFR (MDRD) Non-Af 19 L, BUN/Creatinine Ratio 27.2 H, Glucose 149 H, C alcium 8.2 L 08/27/23 04:25: POC Glucose 135 H 08/27/23 11:14: POC Glucose 128 H Micro: Microbiology 08/25/23 11:10 Blood Culture (Wb) - Left Hand Blood Culture - Preliminary No growth in 48 hours. 08/25/23 10:15 Blood Culture (Wb) - Pic Blood Culture - Preliminary No growth in 48 hours. Assessment and Plan . Assessment and plan: 1. Acute respiratory failure requiring prolonged MV support 2. MV dependence 3. 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 Hypervolemia 5. Pulmonary edema 6. Recent bleeding requiring cessation of A/C and placement IVC filter 7. VTED 8. Recent VAP w/ bacteremia - S malto -MV support- data reviewed, adjustments made as needed -reduce FiO2 as able -sedation -tracheostomy placement planned 08/28 -INSIDE H[employer]ICULT[employer] GROWER per Renal -TF via PEG -ABX -eventual LTACH Critical Care Time: 50 minutes The entirety of this encounter was done via Telemedicine Physical Exam Const General Appearance: patient mechanically ventilated Orientation / Consciousness: obtunded HEENT head/scalp atraumatic Eyes EOMs intact bilaterally Neck full ROM and supple Resp normal respiratory effort and no use of accessory muscles Subjective Subjective Events reviewed, prolonged MV awiting trach Tuesday
[2023-08-27 17:03] LABS: Bedside Glucose 143 mg/dL (74-106)
[2023-08-27] MEDS: Atorvastatin Calcium 40 MG Tablet GT (20:58)
[2023-08-27] MEDS: 0.9% Saline Lock 10 ML Syringe IV (21:24)
[2023-08-27 23:11] LABS: Bedside Glucose 138 mg/dL (74-106)
[2023-08-28] VITALS (36 sets, daily range): BP systolic 74–112; BP diastolic 53–88; PULSE 91–110; RESP 16–22; TEMP 36.2–36.5; O2SAT 89–94; BMI 34.9
[2023-08-28] MEDS: NEPRO TUBE FEED 1,000 ML 25 ML GT (03:07)
[2023-08-28] MEDS: 0.9% Saline Lock 10 ML Syringe IV ×2 (03:23→21:12)
[2023-08-28 03:30] LABS: Absolute Neutrophil Count 9.9 X10^3/uL (2.0-7.7); Basophil# 0.09 X10^3/uL; Basophil% 0.8 % (0-1); Eosinophil# 0.22 X10^3/uL; Eosinophils% 1.9 % (0-5); Hematocrit 27.2 % (40-54); Lymphocyte % 5.2 % (19-41); Mean Corp Hgb Conc 29.4 g/dL (32-36); Mean Corpuscular Hgb 25.7 pg (27.0-32.0); Mean Corpuscular Volume 87.5 fL (80-94); Mean Platelet Vol. 11.6 fl (6.2-12.0); Monocyte# 0.52 X10^3/uL; Monocyte% 4.5 % (0-10); NRBC Flagged by Analyzer 0 % (0-5); Neutrophil # 9.87 X10^3/uL (2.7-7.7); Neutrophil % 85.9 % (47-70); POSITIVE DIFFERENTIAL YES; Platelet Count 119 K/mm3 (150-450); RBC Distribution Width CV 19.8 % (11.6-14.6); RBC Distribution Width SD 58.6 fl (35.1-43.9); Red Blood Count 3.11 M/mm3 (4.6-6.2); White Blood Count 11.5 K/mm3 (4.4-11.0)
[2023-08-28 03:45] LABS: Anion Gap 12 (5-15); BUN 102 mg/dL (7-18); BUN/Creat Ratio 24.9 RATIO (10-20); Calcium,Total 8.1 mg/dL (8.5-10.1); Chloride 101 mmol/L (98-107); Creatinine, Serum 4.09 mg/dL (0.70-1.30); EST Glomerular Filtration Rate 15 mL/min (>60); Est Glom Filt Rate - Afr Amer 19 mL/min (>60); Estimated Creatinine Clearance 18.23 ml/min; Glucose 142 mg/dL (74-106); Potassium 4.6 mmol/L (3.5-5.1); Sodium Level 134 mmol/L (136-145)
[2023-08-28] MEDS: Norepinephrine 8 MG in 0.9% Normal Saline (250mL Bag) 242 ML 5.6 MG CONT INF (04:05)
[2023-08-28] MEDS: fentaNYL drip 100 ML 10 MCG CONT INF ×2 (04:23→14:27)
[2023-08-28] MEDS: Menthol/Lanolin/Calamine/Znox 113 GM Tube 1 APPLIC TOPICAL ×3 (04:48→21:10)
[2023-08-28 05:08] LABS: Bedside Glucose 131 mg/dL (74-106)
--- NOTE | 2023-08-28 05:46 | CPS ---
RN increase o2 to 55% due to low saturations
[2023-08-28] MEDS: Propofol 10MG/Ml 1,000 MG/100 ML Bottle 8.9 MG CONT INF ×3 (06:49→23:49)
[2023-08-28] MEDS: Pantoprazole Sodium 40 MG in 0.9% Normal Saline (100mL MB+) 100 ML 330 MG IV ×2 (08:07→21:11)
[2023-08-28] MEDS: Metoprolol Tartrate 25 MG Tablet 12.5 MG GT (08:09)
[2023-08-28] MEDS: QUEtiapine 25 MG Tablet GT ×2 (08:11→21:11)
[2023-08-28] MEDS: Chlorhexidine 15 ML PO ×2 (08:11→21:10)
[2023-08-28] MEDS: [UNRECOGNIZED DRUG - OTHER] GT ×2 (08:28→21:11)
[2023-08-28] MEDS: MINOCYCLINE HCL GT ×2 (08:28→21:11)
[2023-08-28] MEDS: Insulin Glargine-YFGN 100 UNIT/ML Pen 26 UNIT SC (08:30)
--- NOTE | 2023-08-28 08:46 | PN_ITS ---
Subjective Subjective Patient seen and examined. He remains intubated and sedated. He remains on propofol and fentanyl, as well as levophed. ENT is hoping to insert the tracheostomy tomorrow. Objective Data Objective Data Vital Signs: Vital Signs Temp Pulse Resp BP Pulse Ox O2 Del Method O2 Flow Rate 97.1 F L 100 17 97/56 L 93 Mechanical Ventilator 60 08/28/23 04:00 08/28/23 08:09 08/28/23 07:28 08/28/23 08:09 08/28/23 07:28 08/28/23 07:00 08/25/23 19:00 FiO2 55 08/28/23 07:28 Oxygen Flow Rate (L/min) 60 Oxygen Delivery Method Mechanical Ventilator Weight: 217 lb 13.067 oz Body Mass Index (BMI) 34.9 Intake & Output: Intake and Output for Last 24 Hours 08/26/23 08/27/23 08/28/23 23:59 23:59 23:59 Intake Total 2657.24 / 2875.84 2274.80 / 2299.00 807.42 / 807.42 Output Total 1160 / 1160 307 / 307 81 / 81 Balance 1497.24 / 1715.84 1967.80 / 1992.00 726.42 / 726.42 Lab / Micro Data 08/28/23 03:20 08/28/23 03:20 Labs: Laboratory Results - last 24 hr 08/27/23 11:14: POC Glucose 128 H 08/27/23 16:44: POC Glucose 143 H 08/27/23 22:52: POC Glucose 138 H 08/28/23 03:20: WBC 11.5 H, RBC 3.11 L, Hgb 8.0 L, Hct 27.2 L, MCV 87.5, MCH 25.7 L, MCHC 29.4 L, RDW Std Deviation 58.6 H, RDW Coeff of Raghavendra 19.8 H, Plt Count 119 L, MPV 11.6, Immature Gran % (Auto) 1.700 H, Neut % (Auto) 85.9 H, L ymph % (Auto) 5.2 L, [place] % (Auto) 4.5, Eos % (Auto) 1.9, Baso % (Auto) 0.8, A bsolute Neuts (auto) 9.9 H, Absolute Lymphs (auto) 0.60 L, Nucleated RBC % 0, S odium 134 L, Potassium 4.6, Chloride 101, Carbon Dioxide 21.0, Anion Gap 12, BUN 102 H*, Creatinine 4.09 H, Estim Creat Clear Calc 18.23, Est GFR (MDRD) Af Amer 19 L, Est GFR (MDRD) Non-Af 15 L, BUN/Creatinine Ratio 24.9 H, Glucose 142 H, C alcium 8.1 L 08/28/23 04:46: POC Glucose 131 H Micro: Microbiology 08/25/23 11:10 Blood Culture (Wb) - Left Hand Blood Culture - Preliminary No growth in 48 hours. 08/25/23 10:15 Blood Culture (Wb) - Pic Blood Culture - Preliminary No growth in 48 hours. 08/17/23 09:00 Blood Culture (Wb) - Pic Blood Culture - Final Stenotrophomonas maltophilia 08/17/23 09:00 Blood Culture (Wb) - Right Wrist Blood Culture - Final No growth in 5 days. 08/12/23 12:29 Wash - Right Middle Lobe Virus Culture - Final 08/20/23 10:15 Stool Stool Occult Blood (CRISTIAN) - Final Occult Blood Positive 08/17/23 09:15 Sputum, Induced/Lukens Gram Stain - Final 08/17/23 09:15 Sputum, Induced/Lukens Respiratory Culture - Preliminary Stenotrophomonas maltophilia 08/11/23 15:14 Fluid - Pleural (Lung) Gram Stain - Final 08/11/23 15:14 Fluid - Pleural (Lung) Body Fluid Culture - Final Culture exhibits no growth. 08/11/23 15:14 Fluid - Pleural (Lung) Anaerobic Culture - Final No growth in 5 days. 08/12/23 12:29 Wash - Bronchial Gram Stain - Final 08/12/23 12:29 Wash - Bronchial Respiratory Culture - Final Stenotrophomonas maltophilia 08/11/23 09:59 Sputum, Induced/Lukens Gram Stain - Final 08/11/23 09:59 Sputum, Induced/Lukens Respiratory Culture - Final Stenotrophomonas maltophilia 08/12/23 10:49 Nasal Secretion SARS-CoV-2 Antigen (Rapid) - Final 08/04/23 00:00 Sputum, Expectorated/Coughed Gram Stain - Final 08/04/23 00:00 Sputum, Expectorated/Coughed Respiratory Culture - Final 08/03/23 21:57 Urine, Random Legionella Antigen - Final 08/03/23 21:57 Urine, Random Streptococcus pneumoniae Antigen (M - Final 08/03/23 18:30 Mucosa - Nose SARS-CoV-2, Influenza & RSV (PCR) - Final Physical Exam Narrative Const Constitutional Narrative: intubated, sedated, RASS score today remains is 0 Eyes PERRL Eyes Narrative: Neck no lymphadenopathy, supple, no JVD, thyroid normal and no carotid bruits Neck Narrative: General: trachea midline Lymph Lymphatic: no lymphadenopathy noted and no lymphedema noted Resp Resp Narrative: remains intubated and sedated, moderately diminished breath sounds bilaterally, no wheezes or crackles. FiO2 is 55% today. Auscultation: wheezes Cardio regular rate, regular rhythm, S1 normal heart sound, S2 normal heart sound and no murmurs GI normal to inspection, nondistended, normoactive bowel sounds, soft to palpation, non-tender, non-distended and hepatosplenomegaly GI Narrative: PEG tube in situ Extremity normal to inspection and no clubbing, cyanosis or edema Extremity Narrative: Right upper extremity PICC in place General Extremity: no tenderness to palpation of joints or extremities Skin no rashes or lesions noted General Skin Exam: no breakdown Neuro Neuro Narrative: flat affect, intubated, RASS score remains 0 Psych Psych Narrative: flat affect, intubated, on the ventilator. RASS score is 0 Assessment & Plan Assessment/Plan (1) Pulmonary embolus, right: (2) Bacteremia due to Gram-negative bacteria: (3) Acute hypoxic respiratory failure: (4) Pleural effusion, right: PLAN: Plan #Acute hypoxic respiratory failure * multifactorial; thought to be due to nonstemi, pneumonia, PE and volume overload * CXR was consistent with ARDS * remains intubated and sedated. RASS score is 0 today * now off lasix * unable to wean down FiO2. * on propofol and fentanyl. FIO2 today is 60% * remains on ceftazidime and oral minocycline. * critical care on board * he had PEG tube inserted. ENT on board and patient to have trach inserted. I spoke to Dr. López yesterday who said he was trying to get the patient on the schedule for next 08/29/2023. * * #Shock * likely undifferentiated. * Requiring Levophed to maintain hemodynamic stability. * Titrate Levophed to maintain a MAP of more than 65%. * # Pneumonia due to multidrug-resistant stenotrophomonas * Blood cultures were also positive for this. It is resistant to Bactrim and Levaquin. Now on ceftazidime and minocycline. ID on board. * repeat blood cultures are negative. ID to determine duration of antibiotics * #Non-STEMI: * Had cardiac cath on 08/08/2023 which showed normal left main coronary artery and the first diagonal artery with 90% stenosis in first obtuse marginal branch noting 70% stenosis and a totally occluded RCA with [id number] collaterals. * on aspirin and statin. * #Hyponatremia: resolved. #Hypokalemia:resolved #Acute heart failure preserved ejection fraction: being diuresed with IV lasix #TRENA on CKD stage IIIb: Nephrology on board. Currently on dialysis. #History of PE: Developed GI bleed after being started on blood thinners. Has IVC filter in place. #Right pleural effusion: S/p right thoracentesis with removal of ~1000 cc of fluid. Will monitor. #Acute on chronic anemia due to GI bleed: Aspirin on hold. On Protonix. #Hypertension: On chlorthalidone and amlodipine. These are currently on hold. Metoprolol being continued. will monitor #Invasive urothelial carcinoma: S/p transurethral resection of the tumor. Follow-up with urology on outpatient basis. DVT prophylaxis: IVC filter in place. SCDs Charges/Coding Visit Charges Inpatient E&M: 54739 [facility] Hosp L3
[2023-08-28 14:34] LABS: Bedside Glucose 119 mg/dL (74-106)
[2023-08-28 16:53] LABS: Bedside Glucose 131 mg/dL (74-106)
[2023-08-28] MEDS: Atorvastatin Calcium 40 MG Tablet GT (21:11)
[2023-08-29] VITALS (70 sets, daily range): BP systolic 73–230; BP diastolic 37–68; PULSE 93–107; RESP 16–24; TEMP 35.7–36.9; O2SAT 89–97; BMI 35.5; BMI 35.4; BMI 36.3
[2023-08-29 00:22] LABS: Bedside Glucose 121 mg/dL (74-106)
[2023-08-29] MEDS: fentaNYL drip 100 ML 10 MCG CONT INF ×3 (00:27→20:00)
[2023-08-29] MEDS: CHLORHEXIDINE GLUC 2% CLOTH 1 EACH TOWELETTE TOPICAL (01:00)
[2023-08-29] MEDS: 0.9% Saline Lock 10 ML Syringe IV ×4 (01:05→10:01)
[2023-08-29] MEDS: NEPRO TUBE FEED 1,000 ML 35 ML GT (03:30)
[2023-08-29 03:58] LABS: Absolute Lymphocyte Count 0.74 X10^3/uL (0.83-4.51); Absolute Neutrophil Count 10.5 X10^3/uL (2.0-7.7); Basophil# 0.12 X10^3/uL; Eosinophil# 0.21 X10^3/uL; Eosinophils% 1.7 % (0-5); Hematocrit 28.3 % (40-54); Hemoglobin 8.3 g/dL (13.0-16.5); Lymphocyte # 0.74 X10^3/ul (0.83-4.51); Lymphocyte % 5.9 % (19-41); Mean Corp Hgb Conc 29.3 g/dL (32-36); Mean Corpuscular Hgb 25.6 pg (27.0-32.0); Mean Corpuscular Volume 87.3 fL (80-94); Mean Platelet Vol. 11.6 fl (6.2-12.0); Monocyte# 0.71 X10^3/uL; Monocyte% 5.6 % (0-10); NRBC Flagged by Analyzer 0.2 % (0-5); Neutrophil # 10.47 X10^3/uL (2.7-7.7); Neutrophil % 83.2 % (47-70); Platelet Count 136 K/mm3 (150-450); RBC Distribution Width SD 58.6 fl (35.1-43.9); Red Blood Count 3.24 M/mm3 (4.6-6.2); White Blood Count 12.6 K/mm3 (4.4-11.0)
[2023-08-29 04:33] LABS: Anion Gap 12 (5-15); BUN 113 mg/dL (7-18); BUN/Creat Ratio 23.5 RATIO (10-20); Calcium,Total 8.3 mg/dL (8.5-10.1); Chloride 99 mmol/L (98-107); Creatinine, Serum 4.81 mg/dL (0.70-1.30); EST Glomerular Filtration Rate 13 mL/min (>60); Est Glom Filt Rate - Afr Amer 15 mL/min (>60); Estimated Creatinine Clearance 15.63 ml/min; Glucose 136 mg/dL (74-106); Potassium 4.8 mmol/L (3.5-5.1); Sodium Level 131 mmol/L (136-145)
[2023-08-29] MEDS: Menthol/Lanolin/Calamine/Znox 113 GM Tube 1 APPLIC TOPICAL ×3 (05:40→20:32)
[2023-08-29 06:05] LABS: Bedside Glucose 131 mg/dL (74-106)
--- NOTE | 2023-08-29 06:44 | PN.CC_ITS ---
Assessment & Plan Assessment/Plan (1) Acute hypoxic respiratory failure: (2) Pleural effusion, right: (3) TRENA (acute kidney injury): PLAN: Plan RECOMMENDATIONS: 1. Continue assist-control mode mechanical ventilation. Wean FiO2 and PEEP for saturations greater than 90%. 2. Continue current sedation regimen. 3. Consider transitioning to CRRT for volume management. 4. Continue Levophed to maintain a mean arterial pressure at or above 65 mmHg. 5. Awaiting tracheostomy placement by ENT. 6. Continue antimicrobials per ID recommendations. 7. Continue tube feeding as tolerated. 8. Continue appropriate GI prophylaxis. IMPRESSIONS: 1. Acute hypoxemic respiratory failure Initially, the patient's respiratory decompensation was felt to be a consequence of decompensated heart failure with preserved ejection fraction in the setting of an NSTEMI. However, underlying infection related to stenotrophomonas seems more likely. The patient was also diagnosed with a right lower extremity DVT and small nonocclusive right lower lobe PE. He was subsequently initiated on a weight-based heparin infusion. Ultimately, the patient continued to decompensate from a respiratory perspective and required intubation. Upon intubation, the patient was noted to have a significant amount of bleeding from his endotracheal tube, raising the suspicion for diffuse alveolar hemorrhage. Nevertheless, subsequent bronchoscopy was not consistent with DAH. The patient underwent thoracentesis as well from the right hemithorax which appeared to be transudative in nature. Cardiac catheterization was completed, for which medical therapy was recommended. The patient continues to have a tenuous respiratory status on the ventilator, requiring high FiO2. Over concerns that the ongoing bloody secretions could be contributing to his persistent high oxygenation requirement, an IVC filter was placed on August 17 in order to facilitate discontinuation of the weight-based heparin infusion. The patient remains on antimicrobials under the discretion of infectious diseases due to a multidrug-resistant stenotrophomonas. Plan to continue to wean FiO2 and PEEP to maintain saturations at or above 90%. Unfortunately, the patient continues to fail spontaneous breathing trials. Therefore, PEG tube was placed and tracheostomy is pending. Given that the patient's volume status is expanding, recommend consideration for transition to CRRT to facilitate volume removal in the setting of hemodynamic instability. In the interim, continue nutritional support via tube feeding. 2. NSTEMI/acute decompensated heart failure with preserved ejection fraction Management per cardiology. 3. Acute on chronic kidney disease Nephrology is following. The patient's worsening renal insufficiency is likely multifactorial and related to prerenal etiology coupled with possible contrast nephropathy from recent catheterization and CTA chest. Recommend considering a transition to CRRT for volume optimization, given the patient's tenuous hemodynamic status and need for vasopressor support. TIME: 32 minutes, independent of procedures, was spent addressing the patient's acute hypoxemic respiratory failure, NSTEMI, acute decompensated heart failure with preserved ejection fraction, stenotrophomonas pneumonia, acute on chronic kidney disease, review of all data and collaboration with care team. Subjective Subjective The patient was seen and examined at the bedside this morning. Events from the last 24 hours have been reviewed. The patient major on assist-control mode mechanical ventilation with an FiO2 requirement of 60% and PEEP of 8. Today is ventilator day #19. The patient remains on Levophed at 8 mcg/min to maintain hemodynamic stability. He is sedated on a combination of propofol and fentanyl. There are plans for dialysis today. Hemoglobin is stable at 8.3 g/dL. Platelet count has improved to 136,000. The patient has not been tolerant of aggressive attempts at volume removal on account of worsening hemodynamics. Objective Data Objective Data The patient's most recent lab work, culture data and imaging studies have all been personally reviewed. Surface echocardiogram demonstrated normal LV size and function with an ejection fraction of 55%. Doppler study was positive for right-sided DVT. Sputum and blood cultures were positive for stenotrophomonas. Vital Signs: Vital Signs Temp Pulse Resp BP Pulse Ox O2 Del Method O2 Flow Rate 98.4 F 99 18 92/52 L 94 Mechanical Ventilator 60 08/29/23 00:00 08/29/23 06:00 08/29/23 06:00 08/29/23 06:00 08/29/23 06:00 08/29/23 06:00 08/25/23 19:00 FiO2 60 08/29/23 06:00 Oxygen Flow Rate (L/min) 60 Oxygen Delivery Method Mechanical Ventilator Weight: 221 lb 5.506 oz Body Mass Index (BMI) 35.5 Intake & Output: Intake and Output for Last 24 Hours 08/27/23 08/28/23 08/29/23 23:59 23:59 23:59 Intake Total 2274.80 / 2299.00 1900.10 / 2042.33 628.98 / 628.98 Output Total 307 / 307 242 / 242 61 / 61 Balance 1967. 1658.10 / 1800.33 567.98 / 567.98 Lab / Micro Data Attestation: I reviewed the patient's lab results. 08/29/23 03:50 08/29/23 03:50 Labs: Laboratory Results - last 24 hr 08/28/23 14:17: POC Glucose 119 H 08/28/23 16:29: POC Glucose 131 H 08/28/23 23:57: POC Glucose 121 H 08/29/23 03:50: WBC 12.6 H, RBC 3.24 L, Hgb 8.3 L, Hct 28.3 L, MCV 87.3, MCH 25.6 L, MCHC 29.3 L, RDW Std Deviation 58.6 H, RDW Coeff of Raghavendra 20.0 H, Plt Count 136 L, MPV 11.6, Immature Gran % (Auto) 2.600 H, Neut % (Auto) 83.2 H, L ymph % (Auto) 5.9 L, [place] % (Auto) 5.6, Eos % (Auto) 1.7, Baso % (Auto) 1.0, A bsolute Neuts (auto) 10.5 H, Absolute Lymphs (auto) 0.74 L, Nucleated RBC % 0.2, Sodium 131 L, Potassium 4.8, Chloride 99, Carbon Dioxide 20.0 L, Anion Gap 12, B UN 113 H*, Creatinine 4.81 H, Estim Creat Clear Calc 15.63, Est GFR (MDRD) Af Amer 15 L, Est GFR (MDRD) Non-Af 13 L, BUN/Creatinine Ratio 23.5 H, Glucose 136 H, Calcium 8.3 L 08/29/23 05:39: POC Glucose 131 H Micro: Microbiology 08/25/23 11:10 Blood Culture (Wb) - Left Hand Blood Culture - Preliminary No growth in 48 hours. 08/25/23 10:15 Blood Culture (Wb) - Pic Blood Culture - Preliminary No growth in 48 hours. 08/17/23 09:00 Blood Culture (Wb) - Pic Blood Culture - Final Stenotrophomonas maltophilia 08/17/23 09:00 Blood Culture (Wb) - Right Wrist Blood Culture - Final No growth in 5 days. 08/12/23 12:29 Wash - Right Middle Lobe Virus Culture - Final 08/20/23 10:15 Stool Stool Occult Blood (CRISTIAN) - Final Occult Blood Positive 08/17/23 09:15 Sputum, Induced/Lukens Gram Stain - Final 08/17/23 09:15 Sputum, Induced/Lukens Respiratory Culture - Preliminary Stenotrophomonas maltophilia 08/11/23 15:14 Fluid - Pleural (Lung) Gram Stain - Final 08/11/23 15:14 Fluid - Pleural (Lung) Body Fluid Culture - Final Culture exhibits no growth. 08/11/23 15:14 Fluid - Pleural (Lung) Anaerobic Culture - Final No growth in 5 days. 08/12/23 12:29 Wash - Bronchial Gram Stain - Final 08/12/23 12:29 Wash - Bronchial Respiratory Culture - Final Stenotrophomonas maltophilia 08/11/23 09:59 Sputum, Induced/Lukens Gram Stain - Final 08/11/23 09:59 Sputum, Induced/Lukens Respiratory Culture - Final Stenotrophomonas maltophilia 08/12/23 10:49 Nasal Secretion SARS-CoV-2 Antigen (Rapid) - Final 08/04/23 00:00 Sputum, Expectorated/Coughed Gram Stain - Final 08/04/23 00:00 Sputum, Expectorated/Coughed Respiratory Culture - Final 08/03/23 21:57 Urine, Random Legionella Antigen - Final 08/03/23 21:57 Urine, Random Streptococcus pneumoniae Antigen (M - Final 08/03/23 18:30 Mucosa - Nose SARS-CoV-2, Influenza & RSV (PCR) - Final ABG Data ABG results: ABG 08/11/23 10:13 Specimen Type ART Sample Site L Radial pH 7.47 H Bicarbonate Actual 36.1 H Total CO2 38 Base Excess 13 H O2 Saturation 99 O2 % 50.0 ABG pCO2 49.8 H ABG pO2 132 H Abhijit Test Positive Respiration Rate 14 O2 Delivery Device Adult Vent Vent Mode AC Tidal Volume 500.0 POC PEEP 10 Radiography Diagnostic Testing: Radiology Impression Chest X-Ray 08/16/23 06:26 IMPRESSION: Stable exam. Electronically Signed: Mehdi Ernandez MD at 8:26 EDT , Physical Exam Const Constitutional Narrative: Intubated, sedated and mechanically ventilated. No ventilator dyssynchrony noted. General Appearance: ill appearing and patient mechanically ventilated HEENT normocephalic and head/scalp atraumatic Mouth: endotracheal tube in place Eyes PERRL, EOMs intact bilaterally and conjunctivae normal Neck supple General: trachea midline Chest inspection of chest normal Resp Resp Narrative: Coarse mechanical breath sounds. Auscultation: diminished lung sounds; Negative for rales, rhonchi or wheezes Cardio S1 normal heart sound and S2 normal heart sound Rate: tachycardic GI normal to inspection, nondistended, normoactive bowel sounds Inspection: GI tube present Extremity no clubbing, cyanosis or edema Skin no rashes or lesions noted Neuro Sensorium / Orientation: sedated on vent Charges/Coding Procedures Hospitalists Procedures: 75247 Critical Care 1st Hr
[2023-08-29] MEDS: 0.9% Normal Saline 1,000 ML IV.SOLN. 1000 ML OPERA.SITE (07:15)
--- NOTE | 2023-08-29 07:44 | PCM.PN.HOSP ---
Reason for Visit Reason for Visit: Diagnoses Non-ST elevation (NSTEMI) myocardial infarction (08/03/23) Other pulmonary embolism without acute cor pulmonale (08/03/23) Acute embolism and thrombosis of unspecified deep veins of unspecified lower extremity (08/03/23) Pneumonia, unspecified organism (08/03/23) Pleural effusion, not elsewhere classified (08/03/23) Acute respiratory failure with hypoxia (08/03/23) Acute kidney failure, unspecified (08/03/23) Chronic kidney disease, stage 3b (08/03/23) Bacteremia (08/03/23) Subjective Subjective Patient is a 72-year-old gentleman admitted with shortness of breath was found to have elevated troponin consistent with acute non-STEMI treatment initiated per protocol admitted to the intensive care unit. Patient was found to be in acute respiratory failure resulting in the use of BiPAP. Patient has had a complicated stay with prolonged stay on the vent underwent PEG tube placement developed pulmonary embolism started on heparin did not tolerate statin had an IVC filter placed. Kidney function also did worsen resulting in initiation of hemodialysis. Had a PEG tube placed. Objective Data Objective Data Vital Signs: Vital Signs Temp Pulse Resp BP Pulse Ox O2 Del Method O2 Flow Rate 97.7 F L 98 18 89/45 L 94 Mechanical Ventilator 60 08/29/23 07:00 08/29/23 07:30 08/29/23 07:30 08/29/23 07:30 08/29/23 07:30 08/29/23 07:30 08/25/23 19:00 FiO2 60 08/29/23 07:30 Oxygen Flow Rate (L/min) 60 Oxygen Delivery Method Mechanical Ventilator Weight: 100.4 kg Body Mass Index (BMI) 35.5 Intake & Output: Intake and Output for Last 24 Hours 08/27/23 08/28/23 08/29/23 23:59 23:59 23:59 Intake Total 2274.80 / 2299.00 1900.10 / 2041.33 662.98 / 662.98 Output Total 307 / 307 242 / 242 61 / 61 Balance 1967.80 / 1991.00 1658.10 / 1800.33 601.98 / 601.98 Lab / Micro Data 08/29/23 03:50 08/29/23 03:50 Labs: Laboratory Results - last 24 hr 08/28/23 14:17: POC Glucose 119 H 08/28/23 16:29: POC Glucose 131 H 08/28/23 23:57: POC Glucose 121 H 08/29/23 03:50: WBC 12.6 H, RBC 3.24 L, Hgb 8.3 L, Hct 28.3 L, MCV 87.3, MCH 25.6 L, MCHC 29.3 L, RDW Std Deviation 58.6 H, RDW Coeff of Raghavendra 20.0 H, Plt Count 136 L, MPV 11.6, Immature Gran % (Auto) 2.600 H, Neut % (Auto) 83.2 H, Lymph % (Auto) 5.9 L, [place] % (Auto) 5.6, Eos % (Auto) 1.7, Baso % (Auto) 1.0, Absolute Neuts (auto) 10.5 H, Absolute Lymphs (auto) 0.74 L, Nucleated RBC % 0.2, Sodium 131 L, Potassium 4.8, Chloride 99, Carbon Dioxide 20.0 L, Anion Gap 12, BUN 113 H*, Creatinine 4.81 H, Estim Creat Clear Calc 15.63, Est GFR (MDRD) Af Amer 15 L, Est GFR (MDRD) Non-Af 13 L, BUN/Creatinine Ratio 23.5 H, Glucose 136 H, Calcium 8.3 L 08/29/23 05:39: POC Glucose 131 H Micro: Microbiology 08/25/23 11:10 Blood Culture (Wb) - Left Hand Blood Culture - Preliminary No growth in 48 hours. 08/25/23 10:15 Blood Culture (Wb) - Pic Blood Culture - Preliminary No growth in 48 hours. 08/17/23 09:00 Blood Culture (Wb) - Pic Blood Culture - Final Stenotrophomonas maltophilia 08/17/23 09:00 Blood Culture (Wb) - Right Wrist Blood Culture - Final No growth in 5 days. 08/12/23 12:29 Wash - Right Middle Lobe Virus Culture - Final 08/20/23 10:15 Stool Stool Occult Blood (CRISTIAN) - Final Occult Blood Positive 08/17/23 09:15 Sputum, Induced/Lukens Gram Stain - Final 08/17/23 09:15 Sputum, Induced/Lukens Respiratory Culture - Preliminary Stenotrophomonas maltophilia 08/11/23 15:14 Fluid - Pleural (Lung) Gram Stain - Final 08/11/23 15:14 Fluid - Pleural (Lung) Body Fluid Culture - Final Culture exhibits no growth. 08/11/23 15:14 Fluid - Pleural (Lung) Anaerobic Culture - Final No growth in 5 days. 08/12/23 12:29 Wash - Bronchial Gram Stain - Final 08/12/23 12:29 Wash - Bronchial Respiratory Culture - Final Stenotrophomonas maltophilia 08/11/23 09:59 Sputum, Induced/Lukens Gram Stain - Final 08/11/23 09:59 Sputum, Induced/Lukens Respiratory Culture - Final Stenotrophomonas maltophilia 08/12/23 10:49 Nasal Secretion SARS-CoV-2 Antigen (Rapid) - Final 08/04/23 00:00 Sputum, Expectorated/Coughed Gram Stain - Final 08/04/23 00:00 Sputum, Expectorated/Coughed Respiratory Culture - Final 08/03/23 21:57 Urine, Random Legionella Antigen - Final 08/03/23 21:57 Urine, Random Streptococcus pneumoniae Antigen (M - Final 08/03/23 18:30 Mucosa - Nose SARS-CoV-2, Influenza & RSV (PCR) - Final Physical Exam Narrative GENERAL: Sedated on the vent HEENT: Atraumatic; normocephalic EYES; Anicteric, Normal Conjunctiva NECK; supple, normal thyroid, RESPIRATORY: Diminished to auscultation CARDIOVASCULAR: Regular S1 S2, GI: soft, normoactive bowel sounds, : No Renal angle tenderness; PEG tube in place EXTREMITIES: No edema, no clubbing, MUSCULOSKELETAL: no muscle wasting NEURO: Sedated on the vent SKIN: No Rash Assessment & Plan Assessment/Plan (1) Bacteremia due to Gram-negative bacteria: (2) Pulmonary embolus, right: (3) DVT (deep venous thrombosis): (4) Acute hypoxic respiratory failure: PLAN: Plan Patient is a 72-year-old gentleman admitted with shortness of breath was found to have elevated troponin consistent with acute non-STEMI treatment initiated per protocol admitted to the intensive care unit. Patient was found to be in acute respiratory failure resulting in the use of BiPAP. Patient has had a complicated stay with prolonged stay on the vent underwent PEG tube placement developed pulmonary embolism started on heparin did not tolerate statin had an IVC filter placed. Kidney function also did worsen resulting in initiation of hemodialysis. Had a PEG tube placed. 1. Acute non-STEMI ? Patient admitted to the intensive care unit managed per protocol with heparin, aspirin added statin therapy and beta-blockers with consultation placed to cardiology. Plan is for patient to undergo left heart catheterization ? 08/09/2023 cardiac catheterization demonstrated Normal left main coronary artery, First diagonal vessel with 90% long proximal stenosis, Left anterior descending artery with mild disease ,Nondominant left circumflex artery with first obtuse marginal branch with 70% stenosis, Totally occluded right coronary artery with [id number] collaterals ,Low normal left ventricular ejection fraction noted on echocardiogram with dilated right ventricle 2. Acute hypoxic respiratory failure ? Multifactorial including acute congestive heart failure, suspected PE as well as pneumonia patient placed on noninvasive ventilation Airvo. Consult placed to director of community education notes and recommendations reviewed ? 08/09/2023.Patient seen remains on noninvasive ventilation on BiPAP. Given his significant oxygen requirement decision was made for patient to undergo CTA of the chest to evaluate possible clot burden. ? 08/10/2023; CTA of the chest demonstrated evidence of pulmonary embolism, bilateral pulmonary infiltrates as well as bilateral pleural effusion right greater than left. ? 08/11/2023; respiratory status continues to worsen plan is for patient to undergo elective intubation ? 08/12/2023; Patient was electively intubated the day prior due to worsening respiratory failure. Remained stable on the vent. Plan is for patient to undergo bronchoscopy ? 08/13/2023 remains stable on the vent ? 08/14/2023; patient remains stable on the vent. Has some bloody aspirate from his suction tubing H&H however remained stable. ? 08/29/2023; patient has remained on the vent for prolonged period of time plan is for patient to undergo tracheostomy. 3. Acute VTE (RLE DVT and PE) -Patient underwent VQ scan which was nonconclusive lower extremity duplex demonstrated acute right lower extremity DVT. Patient is on heparin The estimated ejection fraction is 55 %. Unable to assess diastolic dysfunction. Moderately dilated right ventricle. Trivial mitral valve insufficiency. ? 08/10/2023 CTA demonstrated evidence of pulmonary embolism (There is evidence of a intraluminal filling defects in small branches in the right lower lobe suggestive of small pulmonary emboli. No big thrombus is seen.) Patient remains on apixaban plan is to hold and transition to heparin for patient to undergo ultrasound-guided thoracocentesis ? 08/14/2023 patient remains on heparin drip. ? 08/29/2023; heparin drip had to be discontinued after patient developed GI bleed subsequently underwent IVC filter placement on 08/18/2023 4. Acute congestive heart failure with preserved ejection fraction -Echo from 08/04/2023 demonstrated EF of 55%. Patient management strict input and output, fluid restriction as well as diuretic therapy with furosemide 5. Bilateral pleural effusions right greater than left with diffuse bilateral -Plan is for patient to undergo ultrasound-guided thoracocentesis. Patient systemic anticoagulation with apixaban to be held restarted on heparin ? 08/12/2023; Patient also underwent successful ultrasound-guided thoracentesis of the right hemithorax with 1.2 L of fluid removed. . 6. Pneumonia with Stenotrophomonas maltophilia CT of the chest demonstrated bilateral pulmonary infiltrates involving both upper and lower lobes. Patient remains on broad-spectrum antibiotic therapy ? 08/13/2023; sputum cultures grew Stenotrophomonas maltophilia. Patient antibiotic therapy subsequently adjusted ? 08/29/2023; patient grew Stenotrophomonas maltophilia in both blood and sputum which was found to be resistant to Levaquin which was initially sensitive. Antibiotic therapy subsequently adjusted to Rocephin and minocycline. Patient did develop hemoptysis underwent bronchoscopy on 08/12/2023 mild erythema was found throughout the tracheobronchial tree 7. Chronic kidney disease stage IIIb ? Monitoring kidney function ? 08/11/2023; kidney function continues to worsen following diagnostician as well as diuretic therapy nephrology on board ? 08/13/2023 patient kidney function did worsen necessitating initiation of hemodialysis by nephrology ? 08/29/2023; patient is on hemodialysis 8. Presence of solitary kidney ? 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 Hypokalemia ? Corrected per protocol repeat labs ordered for subsequent management 10. Hypertension - Blood pressure controlled, patient is on amlodipine continue also on chlorthalidone held 11. Acute cystitis ? Patient remains on broad-spectrum antibiotics 12. Upper GI bleed ? Patient underwent EGD on 08/25/2023 was found to have a tenosynovitis mucosa in the stomach. He also had a PEG tube successfully placed during the EGD Time spent in the patient's overall evaluation,decision-making process, review of diagnostic data, adjustment of management, discussion with other providers, nursing nursing and ancillary staff involved in patient's care documentation, 55 Minutes Charges/Coding Visit Charges Inpatient E&M: 41987 Subs Hosp L3
--- NOTE | 2023-08-29 09:23 | CASEMGMT ---
Addendum entered by Alysha Méndez 08/29/23 12:30: Sonia from [facility] came into [facility] and saw the pt and visited with the pt . The pt is now on the schedule for surgery tomorrow at 415 for trach placement. Sonia states that we will plan for pt transfer on Tuesday then. Sonia states that the pt will be able to transfer on Tuesday with no stipulations since the pt has straight MCR. Dr. Munoz updated and aware. The ICU unit operator updated and to leave a note for the parts cataloger working on Tuesday to help set up transport for the pt. Will continue to follow. Original Note: Per ICU rounds, Dr. Munoz states that ENT may not be able to place the pt trach until Tuesday (08/30). The pt is upset with this and we are getting Loi (Pt advocate) involved. Updates sent to Adam via [employer] at this time. Sonia (Select Liaison) states that she may come into the hospital today to see the pt. Will follow.
[2023-08-29] MEDS: Pantoprazole Sodium 40 MG in 0.9% Normal Saline (100mL MB+) 100 ML 330 MG IV ×2 (09:34→20:33)
[2023-08-29] MEDS: Chlorhexidine 15 ML PO ×2 (09:34→20:20)
[2023-08-29] MEDS: Propofol 10MG/Ml 1,000 MG/100 ML Bottle 9 MG CONT INF ×2 (09:35→18:13)
[2023-08-29] MEDS: Heparin 10,000 UNITS/10 ML Vial IV ×2 (10:01→16:50)
[2023-08-29] MEDS: CEFTAZIDIME IV (10:20)
[2023-08-29] MEDS: NORMAL SALINE 0.9% IV (10:20)
[2023-08-29] MEDS: 0.9% Normal Saline (250mL Bag) 250 ML 15 ML IV (10:27)
[2023-08-29] MEDS: QUEtiapine 25 MG Tablet GT ×2 (10:29→20:32)
[2023-08-29] MEDS: [UNRECOGNIZED DRUG - OTHER] GT (10:31)
[2023-08-29] MEDS: MINOCYCLINE HCL GT (10:31)
[2023-08-29] MEDS: Insulin Glargine-YFGN 100 UNIT/ML Pen 26 UNIT SC (10:41)
[2023-08-29 11:01] LABS: Bedside Glucose 136 mg/dL (74-106)
[2023-08-29] MEDS: Norepinephrine 8 MG in 0.9% Normal Saline (250mL Bag) 242 ML 15 MG CONT INF (11:39)
--- NOTE | 2023-08-29 12:00 | PN.RENAL_ITS ---
Subjective Subjective Patient had hemodialysis today but only able to tolerate around 500 mL fluid removal. Remains on ventilator. Objective Data Objective Data Vital Signs: Vital Signs Temp Pulse Resp BP Pulse Ox O2 Del Method O2 Flow Rate 97.2 F L 101 H 18 89/55 L 94 Mechanical Ventilator 60 08/29/23 11:39 08/29/23 11:39 08/29/23 11:39 08/29/23 11:39 08/29/23 11:39 08/29/23 10:00 08/25/23 19:00 FiO2 60 08/29/23 11:39 Oxygen Flow Rate (L/min) 60 Oxygen Delivery Method Mechanical Ventilator Weight: 99.9 kg Body Mass Index (BMI) 35.4 Intake & Output: Intake and Output for Last 24 Hours 08/27/23 08/28/23 08/29/23 23:59 23:59 23:59 Intake Total 2274.80 / 2299.00 1900.10 / 2042.33 960.48 / 960.48 Output Total 307 / 307 242 / 242 746 / 746 Balance 1967.80 / 1991.00 1658.10 / 1800.33 214.48 / 214.48 Lab / Micro Data 08/29/23 03:50 08/29/23 03:50 Labs: Laboratory Results - last 24 hr 08/28/23 14:17: POC Glucose 119 H 08/28/23 16:29: POC Glucose 131 H 08/28/23 23:57: POC Glucose 121 H 08/29/23 03:50: WBC 12.6 H, RBC 3.24 L, Hgb 8.3 L, Hct 28.3 L, MCV 87.3, MCH 25.6 L, MCHC 29.3 L, RDW Std Deviation 58.6 H, RDW Coeff of Raghavendra 20.0 H, Plt Count 136 L, MPV 11.6, Immature Gran % (Auto) 2.600 H, Neut % (Auto) 83.2 H, L ymph % (Auto) 5.9 L, [place] % (Auto) 5.6, Eos % (Auto) 1.7, Baso % (Auto) 1.0, A bsolute Neuts (auto) 10.5 H, Absolute Lymphs (auto) 0.74 L, Nucleated RBC % 0.2, Sodium 131 L, Potassium 4.8, Chloride 99, Carbon Dioxide 20.0 L, Anion Gap 12, B UN 113 H*, Creatinine 4.81 H, Estim Creat Clear Calc 15.63, Est GFR (MDRD) Af Amer 15 L, Est GFR (MDRD) Non-Af 13 L, BUN/Creatinine Ratio 23.5 H, Glucose 136 H, Calcium 8.3 L 08/29/23 05:39: POC Glucose 131 H 08/29/23 10:38: POC Glucose 136 H Micro: Microbiology 08/25/23 11:10 Blood Culture (Wb) - Left Hand Blood Culture - Preliminary No growth in 48 hours. 08/25/23 10:15 Blood Culture (Wb) - Pic Blood Culture - Preliminary No growth in 48 hours. 08/17/23 09:00 Blood Culture (Wb) - Pic Blood Culture - Final Stenotrophomonas maltophilia 08/17/23 09:00 Blood Culture (Wb) - Right Wrist Blood Culture - Final No growth in 5 days. 08/12/23 12:29 Wash - Right Middle Lobe Virus Culture - Final 08/20/23 10:15 Stool Stool Occult Blood (CRISTIAN) - Final Occult Blood Positive 08/17/23 09:15 Sputum, Induced/Lukens Gram Stain - Final 08/17/23 09:15 Sputum, Induced/Lukens Respiratory Culture - Preliminary Stenotrophomonas maltophilia 08/11/23 15:14 Fluid - Pleural (Lung) Gram Stain - Final 08/11/23 15:14 Fluid - Pleural (Lung) Body Fluid Culture - Final Culture exhibits no growth. 08/11/23 15:14 Fluid - Pleural (Lung) Anaerobic Culture - Final No growth in 5 days. 08/12/23 12:29 Wash - Bronchial Gram Stain - Final 08/12/23 12:29 Wash - Bronchial Respiratory Culture - Final Stenotrophomonas maltophilia 08/11/23 09:59 Sputum, Induced/Lukens Gram Stain - Final 08/11/23 09:59 Sputum, Induced/Lukens Respiratory Culture - Final Stenotrophomonas maltophilia 08/12/23 10:49 Nasal Secretion SARS-CoV-2 Antigen (Rapid) - Final 08/04/23 00:00 Sputum, Expectorated/Coughed Gram Stain - Final 08/04/23 00:00 Sputum, Expectorated/Coughed Respiratory Culture - Final 08/03/23 21:57 Urine, Random Legionella Antigen - Final 08/03/23 21:57 Urine, Random Streptococcus pneumoniae Antigen (M - Final 08/03/23 18:30 Mucosa - Nose SARS-CoV-2, Influenza & RSV (PCR) - Final Physical Exam Narrative On vent support, no apparent distress S1, S2, RRR Diminished breath sounds Abdomen soft, positive bowel sounds Edema bilateral lower legs Nontunneled right IJ temporary dialysis catheter dressing clean, dry and intact Indwelling Saravia clear yellow urine in bag Assessment & Plan Assessment/Plan (1) TRENA (acute kidney injury): PLAN: 72-year-old male with past medical history significant for 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 Terry (after surgery baseline creatinine around 2.0), presented emergency room on 08/02 with complaints of shortness of breath with exertion, admitted for non-STEMI, suspected pneumonia. - TRENA superimposed on CKD; TRENA likely from ischemic ATN. Renal serologies p- ANCA, c-ANCA, double-stranded DNA, glomerular basement membrane antibody, C3 all normal. C4 complement slightly elevated at 46. Patient was initiated on hemodialysis 08/11 (serum creatinine peaked 4.98 on 08/11) as renal function was worsening and urine output declining. No improvement in renal function, today serum creatinine 4.81, BUN 113. Declining urine output. Patient dialyzed today with minimal fluid removal due to low blood pressures, 500ml UF. He is on Levophed 8mcg. Patient has some urine output but that seems to be declining. Weights are trending up; admission weight around 88 kg, current weight around 100kg. Because of not much improvement in blood pressures and worsening volume status patient seems to be not tolerating intermittent hemodialysis therefore we will start CRRT, -50ml/hr UF. Orders placed. O2 requirements unchanged/ unable to wean down FiO2, FiO2 60%. -Bacteremia due to gram-negative bacteria/ stenotrophomonas; antibiotics per ID, currently IV ceftazidime and p.o. minocycline -ENT and GI consulted for tracheostomy and PEG tube placement -If patient remains dialysis dependent he will need tunneled HD catheter placed before hospital discharge. Needs to clear bacteremia before tunneled dialysis placement. Repeat cultures 08/24 no growth
[2023-08-29 12:41] LABS: Albumin, Serum 1.6 g/dL (3.2-5.0); BUN 84 mg/dL (7-18); BUN/Creat Ratio 21.1 RATIO (10-20); Calcium,Total 8.3 mg/dL (8.5-10.1); Chloride 101 mmol/L (98-107); Creatinine, Serum 3.98 mg/dL (0.70-1.30); EST Glomerular Filtration Rate 16 mL/min (>60); Est Glom Filt Rate - Afr Amer 19 mL/min (>60); Estimated Creatinine Clearance 18.84 ml/min; Glucose 136 mg/dL (74-106); Phosphorus 5.7 mg/dL (2.5-4.9); Sodium Level 133 mmol/L (136-145)
[2023-08-29] MEDS: PUREFLOW B SOLUTION 4K 5,000 ML BAG 9 BAG PF (13:55)
--- NOTE | 2023-08-29 14:03 | PCM.PN.ID ---
Physical Exam Narrative No fever, on vent Const no apparent distress Resp Effort and Inspection: mechanically ventilated Auscultation: diminished lung sounds Cardio regular rate and regular rhythm GI soft to palpation, non-tender and non-distended Skin no rashes or lesions noted ID ID: Route of nutrition/ use of supplements: [] Nutritional Intake: [] IV Site: [] Saravia Catheter: [] Assessment & Plan Assessment/Plan (1) Bacteremia due to Gram-negative bacteria: PLAN: Steno bacteremia, resp source. Sputum steno now R to bactrim and levaquin. On iv ceftazidime and po minocycline. Lab has sent out for additional susceptibility testing. Wbc normalized. Starting CVVHD. FIO2 60%. Has completed 10 days of ceftaz/cristian, will stop today. Will follow (2) Pulmonary embolus, right: (3) Acute hypoxic respiratory failure: (4) TRENA (acute kidney injury): (5) Chronic kidney disease, stage 3b: (6) Pneumonia: QUALIFIERS: Pneumonia type: due to unspecified organism
--- NOTE | 2023-08-29 14:53 | CHAPLAIN ---
Type of Pastoral Visit ___ Initial Visit _x__ Follow-up Visit ___ On-call Visit ___ General Patient Visit ___ Spiritual Assessment ___ Family Conference ___ Bereavement ___ Rapid Response ___ Code Blue ___ Other (describe below) Pastoral Care Referral From ___ Patient _x__ Family _x__ Nurse ___ Physician ___ Accounts Receivable Specialist _x__ Manager Deli ___ Other (describe below) Sacrament/Intervention ___ Active listening ___ Anointing ___ Mandaeism ___ Bereavement ___ Communion ___ [place] exploration ___ ___ Life review _x__ Prayer ___ Reconciliation ___ Sacrament of Sick _x__ Supportive presence ___ Wedding ___ Other (describe below) Pastoral Comments staff members have notified this fountain jerk that the planned procedure for today was postponed and family is discouraged; went to find family but they were busy with other staff members and offered to return to them later; went to patient's room and offered a prayer that was audible; pt was sedated and unresponsive;
--- NOTE | 2023-08-29 17:31 | NURSING ---
1615: CRRT alarming high and low pressure alarms continuously despite interventions to clear alarms/problem. This RN, Ann Rosado RN Aamir Sam RN at bedside. This RN assessed the temporary dialysis catheter and both lumens will flush however both lumens will not draw blood. Unable to do a emergency flush back. Clots present in system. 1630: Dr. Terry notified and orders given to disconnect CRRT and pack b/l lumens with heparin.
[2023-08-29 18:36] LABS: Bedside Glucose 132 mg/dL (74-106)
--- NOTE | 2023-08-29 19:49 | NURSING ---
Per report from daysdelmaft RN, Dr. Terry was going to check with Vinh case operator to see what the next steps regarding his dialysis line and dialysis plans were. This RN called Dr. Terry to discuss plan of care. Dr. Terry recommended trying again to draw back from dialysis catheter and flush it and then let him know how it went. This RN was able to pull back heparin from each port and then flush each port of the dialysis catheter. Heparin reinstilled in each lumen and Dr. Terry notified of findings. Dr. Terry said to wait until tomorrow morning to reassess and see if he may possibly need a new dialysis line.
[2023-08-29] MEDS: Atorvastatin Calcium 40 MG Tablet GT (20:32)
[2023-08-29] MEDS: Albuterol 2.5 MG/3 ML VIAL.NEB. INHALATION (22:12)
[2023-08-29 23:41] LABS: Bedside Glucose 125 mg/dL (74-106)
[2023-08-30] VITALS (54 sets, daily range): BP systolic 80–145; BP diastolic 35–81; PULSE 85–124; RESP 15–21; TEMP 36.1–36.4; O2SAT 90–100; BMI 36.3
[2023-08-30] MEDS: Norepinephrine 8 MG in 0.9% Normal Saline (250mL Bag) 242 ML 26.3 MG CONT INF (00:18)
[2023-08-30] MEDS: Heparin 10,000 UNITS/10 ML Vial IV (00:27)
[2023-08-30 04:30] LABS: Absolute Lymphocyte Count 0.77 X10^3/uL (0.83-4.51); Basophil# 0.14 X10^3/uL; Eosinophil# 0.31 X10^3/uL; Eosinophils% 2.3 % (0-5); Hematocrit 29.3 % (40-54); Hemoglobin 8.7 g/dL (13.0-16.5); Lymphocyte # 0.77 X10^3/ul (0.83-4.51); Lymphocyte % 5.8 % (19-41); Mean Corp Hgb Conc 29.7 g/dL (32-36); Mean Corpuscular Hgb 25.6 pg (27.0-32.0); Mean Corpuscular Volume 86.2 fL (80-94); Mean Platelet Vol. 11.7 fl (6.2-12.0); Monocyte# 0.87 X10^3/uL; Monocyte% 6.5 % (0-10); NRBC Flagged by Analyzer 0.4 % (0-5); Neutrophil # 10.99 X10^3/uL (2.7-7.7); Neutrophil % 82.2 % (47-70); POSITIVE MORPHOLOGY YES; Platelet Count 136 K/mm3 (150-450); RBC Distribution Width CV 20.5 % (11.6-14.6); RBC Distribution Width SD 58.9 fl (35.1-43.9); White Blood Count 13.4 K/mm3 (4.4-11.0)
[2023-08-30] MEDS: Propofol 10MG/Ml 1,000 MG/100 ML Bottle 9 MG CONT INF (04:30)
[2023-08-30 04:44] LABS: Bedside Glucose 122 mg/dL (74-106)
[2023-08-30 04:55] LABS: Anion Gap 12 (5-15); BUN 91 mg/dL (7-18); BUN/Creat Ratio 22.1 RATIO (10-20); Calcium,Total 8.1 mg/dL (8.5-10.1); Chloride 100 mmol/L (98-107); Creatinine, Serum 4.11 mg/dL (0.70-1.30); EST Glomerular Filtration Rate 15 mL/min (>60); Est Glom Filt Rate - Afr Amer 19 mL/min (>60); Glucose 140 mg/dL (74-106); Potassium 4.3 mmol/L (3.5-5.1); Sodium Level 133 mmol/L (136-145); Triglycerides 217 mg/dL
[2023-08-30] MEDS: fentaNYL drip 100 ML 10 MCG CONT INF ×2 (05:30→15:49)
[2023-08-30] MEDS: TITRATION PARAMETER CHANGE 1 EACH IV (05:58)
--- NOTE | 2023-08-30 06:29 | PN.CC_ITS ---
Assessment & Plan Assessment/Plan (1) Acute hypoxic respiratory failure: (2) Pleural effusion, right: (3) TRENA (acute kidney injury): PLAN: Plan RECOMMENDATIONS: 1. Continue assist-control mode mechanical ventilation. Wean FiO2 and PEEP for saturations greater than 90%. 2. Continue current sedation regimen. 3. Reattempt initiation of CRRT for volume management. 4. Continue Levophed to maintain a mean arterial pressure at or above 65 mmHg. Start scheduled midodrine as well. 5. Awaiting tracheostomy placement by ENT later today. 6. Continue tube feeding as tolerated. 7. Continue appropriate GI prophylaxis. IMPRESSIONS: 1. Acute hypoxemic respiratory failure Initially, the patient's respiratory decompensation was felt to be a consequence of decompensated heart failure with preserved ejection fraction in the setting of an NSTEMI. However, underlying infection related to stenotrophomonas seems more likely. The patient was also diagnosed with a right lower extremity DVT and small nonocclusive right lower lobe PE. He was subsequently initiated on a weight-based heparin infusion. Ultimately, the patient continued to decompensate from a respiratory perspective and required intubation. Upon intubation, the patient was noted to have a significant amount of bleeding from his endotracheal tube, raising the suspicion for diffuse alveolar hemorrhage. Nevertheless, subsequent bronchoscopy was not consistent with DAH. The patient underwent thoracentesis as well from the right hemithorax which appeared to be transudative in nature. Cardiac catheterization was completed, for which medical therapy was recommended. The patient continues to have a tenuous respiratory status on the ventilator, requiring high FiO2. Over concerns that the ongoing bloody secretions could be contributing to his persistent high oxygenation requirement, an IVC filter was placed on August 17 in order to facilitate discontinuation of the weight-based heparin infusion. The patient has now completed a 10-day course of ceftaz/Henry per ID recommendations, due to a multidrug-resistant stenotrophomonas. Plan to continue to wean FiO2 and PEEP to maintain saturations at or above 90%. Unfortunately, the patient continues to fail spontaneous breathing trials. Therefore, PEG tube was placed and tracheostomy is pending. Given that the patient's volume status is expanding, recommend reattempt at CRRT to facilitate volume removal in the setting of hemodynamic instability. In the interim, continue nutritional support via tube feeding. 2. NSTEMI/acute decompensated heart failure with preserved ejection fraction Management per cardiology. 3. Acute on chronic kidney disease Nephrology is following. The patient's worsening renal insufficiency is likely multifactorial and related to prerenal etiology coupled with possible contrast nephropathy from recent catheterization and CTA chest. Recommend reattempting CRRT for volume optimization, given the patient's tenuous hemodynamic status and need for vasopressor support. TIME: 33 minutes, independent of procedures, was spent addressing the patient's acute hypoxemic respiratory failure, NSTEMI, acute decompensated heart failure with preserved ejection fraction, stenotrophomonas pneumonia, acute on chronic kidney disease, review of all data and collaboration with care team. Subjective Subjective The patient was seen and examined at the bedside this morning. Events from the last 24 hours have been reviewed. The patient is currently afebrile but is requiring Levophed at 27 mcg/min to maintain hemodynamic stability. The patient remains on assist-control mode of mechanical ventilation with an FiO2 requirement of 60% and PEEP of 8. An attempt was made to transition the patient to CRRT yesterday. However, early yesterday evening, the patient's line clotted off. White count is stable at 13,000. Hemoglobin is stable at 8.7 g/dL. There are plans for the patient to undergo tracheostomy this evening at 1600 hrs. the patient's was updated extensively yesterday regarding overall prognosis and goals of care, including disposition to LTACH following tracheotomy. Objective Data Objective Data The patient's most recent lab work, culture data and imaging studies have all been personally reviewed. Surface echocardiogram demonstrated normal LV size and function with an ejection fraction of 55%. Doppler study was positive for right-sided DVT. Sputum and blood cultures were positive for stenotrophomonas. Vital Signs: Vital Signs Temp Pulse Resp BP Pulse Ox O2 Del Method O2 Flow Rate 97 F L 103 H 18 106/56 L 95 Mechanical Ventilator 60 08/30/23 04:00 08/30/23 06:15 08/30/23 06:15 08/30/23 06:15 08/30/23 06:15 08/30/23 06:15 08/25/23 19:00 FiO2 60 08/30/23 06:15 Oxygen Flow Rate (L/min) 60 Oxygen Delivery Method Mechanical Ventilator Weight: 225 lb 12.054 oz Body Mass Index (BMI) 36.3 Intake & Output: Intake and Output for Last 24 Hours 08/28/23 08/29/2308/29/24 23:59 23:59 23:59 Intake Total 1900.10 2041.33 2725.20 / 2770.50 945.84 / 945.84 Output Total 242 / 242 791 / 851 135 / 135 Balance 1658.10 / 1800.33 1934.20 / 1919.50 810.84 / 810.84 Lab / Micro Data Attestation: I reviewed the patient's lab results. 08/30/23 04:15 08/30/23 04:15 Labs: Laboratory Results - last 24 hr 08/29/23 10:38: POC Glucose 136 H 08/29/23 12:15: Sodium 133 L, Potassium 4.0, Chloride 101, Carbon Dioxide 22.0, BUN 84 H, Creatinine 3.98 H, Estim Creat Clear Calc 18.84, Est GFR (MDRD) Af Amer 19 L, Est GFR (MDRD) Non-Af 16 L, BUN/Creatinine Ratio 21.1 H, Glucose 136 H, Calcium 8.3 L, Phosphorus 5.7 H, Albumin 1.6 L 08/29/23 18:11: POC Glucose 132 H 08/29/23 23:20: POC Glucose 125 H 08/30/23 04:15: WBC 13.4 H, RBC 3.40 L, Hgb 8.7 L, Hct 29.3 L, MCV 86.2, MCH 25.6 L, MCHC 29.7 L, RDW Std Deviation 58.9 H, RDW Coeff of Raghavendra 20.5 H, Plt Count 136 L, MPV 11.7, Immature Gran % (Auto) 2.200 H, Neut % (Auto) 82.2 H, L ymph % (Auto) 5.8 L, [place] % (Auto) 6.5, Eos % (Auto) 2.3, Baso % (Auto) 1.0, A bsolute Neuts (auto) 11.0 H, Absolute Lymphs (auto) 0.77 L, Nucleated RBC % 0.4, Sodium 133 L, Potassium 4.3, Chloride 100, Carbon Dioxide 21.0, Anion Gap 12, B UN 91 H, Creatinine 4.11 H, Estim Creat Clear Calc 18.50, Est GFR (MDRD) Af Amer 19 L, Est GFR (MDRD) Non-Af 15 L, BUN/Creatinine Ratio 22.1 H, Glucose 140 H, C alcium 8.1 L, Triglycerides 217 H 08/30/23 04:26: POC Glucose 122 H Micro: Microbiology 08/17/23 09:15 Sputum, Induced/Lukens Gram Stain - Final 08/17/23 09:15 Sputum, Induced/Lukens Respiratory Culture - Preliminary Stenotrophomonas maltophilia 08/17/23 09:00 Blood Culture (Wb) - Pic Blood Culture - Preliminary Stenotrophomonas maltophilia 08/25/23 11:10 Blood Culture (Wb) - Left Hand Blood Culture - Preliminary No growth in 48 hours. 08/25/23 10:15 Blood Culture (Wb) - Pic Blood Culture - Preliminary No growth in 48 hours. 08/17/23 09:00 Blood Culture (Wb) - Right Wrist Blood Culture - Final No growth in 5 days. 08/12/23 12:29 Wash - Right Middle Lobe Virus Culture - Final 08/20/23 10:15 Stool Stool Occult Blood (CRISTIAN) - Final Occult Blood Positive 08/11/23 15:14 Fluid - Pleural (Lung) Gram Stain - Final 08/11/23 15:14 Fluid - Pleural (Lung) Body Fluid Culture - Final Culture exhibits no growth. 08/11/23 15:14 Fluid - Pleural (Lung) Anaerobic Culture - Final No growth in 5 days. 08/12/23 12:29 Wash - Bronchial Gram Stain - Final 08/12/23 12:29 Wash - Bronchial Respiratory Culture - Final Stenotrophomonas maltophilia 08/11/23 09:59 Sputum, Induced/Lukens Gram Stain - Final 08/11/23 09:59 Sputum, Induced/Lukens Respiratory Culture - Final Stenotrophomonas maltophilia 08/12/23 10:49 Nasal Secretion SARS-CoV-2 Antigen (Rapid) - Final 08/04/23 00:00 Sputum, Expectorated/Coughed Gram Stain - Final 08/04/23 00:00 Sputum, Expectorated/Coughed Respiratory Culture - Final 08/03/23 21:57 Urine, Random Legionella Antigen - Final 08/03/23 21:57 Urine, Random Streptococcus pneumoniae Antigen (M - Final 08/03/23 18:30 Mucosa - Nose SARS-CoV-2, Influenza & RSV (PCR) - Final ABG Data ABG results: ABG 08/11/23 10:13 Specimen Type ART Sample Site L Radial pH 7.47 H Bicarbonate Actual 36.1 H Total CO2 38 Base Excess 13 H O2 Saturation 99 O2 % 50.0 ABG pCO2 49.8 H ABG pO2 132 H Abhijit Test Positive Respiration Rate 14 O2 Delivery Device Adult Vent Vent Mode AC Tidal Volume 500.0 POC PEEP 10 Radiography Diagnostic Testing: Radiology Impression Chest X-Ray 08/16/23 06:26 IMPRESSION: Stable exam. Electronically Signed: Mehdi Ernandez MD at 8:26 EDT , Physical Exam Const Constitutional Narrative: Intubated, sedated and mechanically ventilated. No ventilator dyssynchrony noted. General Appearance: ill appearing and patient mechanically ventilated HEENT normocephalic and head/scalp atraumatic Mouth: endotracheal tube in place Eyes PERRL, EOMs intact bilaterally and conjunctivae normal Neck supple General: trachea midline Chest inspection of chest normal Resp Resp Narrative: Coarse mechanical breath sounds. Auscultation: diminished lung sounds; Negative for rales, rhonchi or wheezes Cardio regular rate, regular rhythm, S1 normal heart sound and S2 normal heart sound GI normal to inspection, nondistended, normoactive bowel sounds Inspection: GI tube present Extremity General Extremity: edema Skin no rashes or lesions noted Neuro Sensorium / Orientation: sedated on vent Charges/Coding Procedures Hospitalists Procedures: 54515 Critical Care 1st Hr
[2023-08-30 06:35] LABS: CPK Total, Creatine Kinase 24 U/L (39-308)
--- NOTE | 2023-08-30 06:50 | RAD_ITS ---
STUDY: X-RAY CHEST REASON FOR EXAM: Male, 72 years old. Respiratory failure TECHNIQUE: Frontal view of the chest COMPARISON: 08/26/2023 FINDINGS: There is an endotracheal tube noted with its tip approximately 3 cm above the zack. There is a right-sided central line with its tip in the superior vena cava. There are stable bilateral patchy airspace opacities which are more pronounced in the lower lung gonzalez. There is a stable small right pleural effusion. There is no left-sided effusion. There is no pneumothorax. The heart is normal in size. The visualized osseous structures are within normal limits. RAD/Chest 1 View (Portable) IMPRESSION: Stable exam. Electronically Signed: Mehdi Ernandez MD at 9:01 EDT ,
[2023-08-30] MEDS: Menthol/Lanolin/Calamine/Znox 113 GM Tube 1 APPLIC TOPICAL ×3 (06:56→20:41)
[2023-08-30] MEDS: Norepinephrine 8 MG in 0.9% Normal Saline (250mL Bag) 242 ML 50.6 MG CONT INF (06:56)
--- NOTE | 2023-08-30 07:13 | PN.HOSP_ITS ---
Reason for Visit Reason for Visit: Diagnoses Non-ST elevation (NSTEMI) myocardial infarction (08/03/23) Other pulmonary embolism without acute cor pulmonale (08/03/23) Acute embolism and thrombosis of unspecified deep veins of unspecified lower extremity (08/03/23) Pneumonia, unspecified organism (08/03/23) Pleural effusion, not elsewhere classified (08/03/23) Acute respiratory failure with hypoxia (08/03/23) Acute kidney failure, unspecified (08/03/23) Chronic kidney disease, stage 3b (08/03/23) Bacteremia (08/03/23) Objective Data Objective Data Vital Signs: Vital Signs Temp Pulse Resp BP Pulse Ox O2 Del Method O2 Flow Rate 97 F L 99 17 106/56 L 96 Mechanical Ventilator 60 08/30/23 04:00 08/30/23 07:06 08/30/23 07:06 08/30/23 06:15 08/30/23 07:06 08/30/23 06:15 08/25/23 19:00 FiO2 60 08/30/23 06:15 Oxygen Flow Rate (L/min) 60 Oxygen Delivery Method Mechanical Ventilator Weight: 102.4 kg Body Mass Index (BMI) 36.3 Intake & Output: Intake and Output for Last 24 Hours 08/28/23 08/29/23 08/30/23 23:59 23:59 23:59 Intake Total 1900.10 / 2.33 2725.20 / 2770.50 990.42 / 990.42 Output Total 242 / 242 791 / 851 135 / 135 Balance 1658.10 / 1800.33 1934.20 / 1919.50 855.42 / 855.42 Lab / Micro Data 08/30/23 04:15 08/30/23 04:15 Labs: Laboratory Results - last 24 hr 08/29/23 10:38: POC Glucose 136 H 08/29/23 12:15: Sodium 133 L, Potassium 4.0, Chloride 101, Carbon Dioxide 22.0, BUN 84 H, Creatinine 3.98 H, Estim Creat Clear Calc 18.84, Est GFR (MDRD) Af Amer 19 L, Est GFR (MDRD) Non-Af 16 L, BUN/Creatinine Ratio 21.1 H, Glucose 136 H, Calcium 8.3 L, Phosphorus 5.7 H, Albumin 1.6 L 05/20/24 18:11: POC Glucose 132 H 08/29/23 23:20: POC Glucose 125 H 08/30/23 04:15: WBC 13.4 H, RBC 3.40 L, Hgb 8.7 L, Hct 29.3 L, MCV 86.2, MCH 25.6 L, MCHC 29.7 L, RDW Std Deviation 58.9 H, RDW Coeff of Raghavendra 20.5 H, Plt Count 136 L, MPV 11.7, Immature Gran % (Auto) 2.200 H, Neut % (Auto) 82.2 H, L ymph % (Auto) 5.8 L, [place] % (Auto) 6.5, Eos % (Auto) 2.3, Baso % (Auto) 1.0, A bsolute Neuts (auto) 11.0 H, Absolute Lymphs (auto) 0.77 L, Nucleated RBC % 0.4, Sodium 133 L, Potassium 4.3, Chloride 100, Carbon Dioxide 21.0, Anion Gap 12, B UN 91 H, Creatinine 4.11 H, Estim Creat Clear Calc 18.50, Est GFR (MDRD) Af Amer 19 L, Est GFR (MDRD) Non-Af 15 L, BUN/Creatinine Ratio 22.1 H, Glucose 140 H, C alcium 8.1 L, Total Creatine Kinase 24 L, Triglycerides 217 H 08/30/23 04:26: POC Glucose 122 H Micro: Microbiology 08/17/23 09:15 Sputum, Induced/Lukens Gram Stain - Final 08/17/23 09:15 Sputum, Induced/Lukens Respiratory Culture - Preliminary Stenotrophomonas maltophilia 08/17/23 09:00 Blood Culture (Wb) - Pic Blood Culture - Preliminary Stenotrophomonas maltophilia 08/25/23 11:10 Blood Culture (Wb) - Left Hand Blood Culture - Preliminary No growth in 48 hours. 08/25/23 10:15 Blood Culture (Wb) - Pic Blood Culture - Preliminary No growth in 48 hours. 08/17/23 09:00 Blood Culture (Wb) - Right Wrist Blood Culture - Final No growth in 5 days. 08/12/23 12:29 Wash - Right Middle Lobe Virus Culture - Final 08/20/23 10:15 Stool Stool Occult Blood (CRISTIAN) - Final Occult Blood Positive 08/11/23 15:14 Fluid - Pleural (Lung) Gram Stain - Final 08/11/23 15:14 Fluid - Pleural (Lung) Body Fluid Culture - Final Culture exhibits no growth. 08/11/23 15:14 Fluid - Pleural (Lung) Anaerobic Culture - Final No growth in 5 days. 08/12/23 12:29 Wash - Bronchial Gram Stain - Final 08/12/23 12:29 Wash - Bronchial Respiratory Culture - Final Stenotrophomonas maltophilia 08/11/23 09:59 Sputum, Induced/Lukens Gram Stain - Final 08/11/23 09:59 Sputum, Induced/Lukens Respiratory Culture - Final Stenotrophomonas maltophilia 08/12/23 10:49 Nasal Secretion SARS-CoV-2 Antigen (Rapid) - Final 08/04/23 00:00 Sputum, Expectorated/Coughed Gram Stain - Final 08/04/23 00:00 Sputum, Expectorated/Coughed Respiratory Culture - Final 08/03/23 21:57 Urine, Random Legionella Antigen - Final 08/03/23 21:57 Urine, Random Streptococcus pneumoniae Antigen (M - Final 08/03/23 18:30 Mucosa - Nose SARS-CoV-2, Influenza & RSV (PCR) - Final Physical Exam Narrative GENERAL: Sedated on the vent HEENT: Atraumatic; normocephalic EYES; Anicteric, Normal Conjunctiva NECK; supple, normal thyroid, RESPIRATORY: Diminished to auscultation CARDIOVASCULAR: Regular S1 S2, GI: soft, normoactive bowel sounds, : No Renal angle tenderness; PEG tube in place EXTREMITIES: No edema, no clubbing, MUSCULOSKELETAL: no muscle wasting NEURO: Sedated on the vent SKIN: No Rash Assessment & Plan Assessment/Plan (1) Bacteremia due to Gram-negative bacteria: (2) Pulmonary embolus, right: (3) DVT (deep venous thrombosis): (4) Acute hypoxic respiratory failure: PLAN: Plan Patient is a 72-year-old gentleman admitted with shortness of breath was found to have elevated troponin consistent with acute non-STEMI treatment initiated per protocol admitted to the intensive care unit. Patient was found to be in acute respiratory failure resulting in the use of BiPAP. Patient has had a complicated stay with prolonged stay on the vent underwent PEG tube placement developed pulmonary embolism started on heparin did not tolerate statin had an IVC filter placed. Kidney function also did worsen resulting in initiation of hemodialysis. Had a PEG tube placed. 1. Acute non-STEMI ? Patient admitted to the intensive care unit managed per protocol with heparin, aspirin added statin therapy and beta-blockers with consultation placed to cardiology. Plan is for patient to undergo left heart catheterization ? 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 Acute hypoxic respiratory failure ? Multifactorial including acute congestive heart failure, suspected PE as well as pneumonia patient placed on noninvasive ventilation Airvo. Consult placed to commercial census taker notes and recommendations reviewed ? 08/09/2023.Patient seen remains on noninvasive ventilation on BiPAP. Given his significant oxygen requirement decision was made for patient to undergo CTA of the chest to evaluate possible clot burden. ? 08/10/2023; CTA of the chest demonstrated evidence of pulmonary embolism, bilateral pulmonary infiltrates as well as bilateral pleural effusion right greater than left. ? 08/11/2023; respiratory status continues to worsen plan is for patient to undergo elective intubation ? 08/12/2023; Patient was electively intubated the day prior due to worsening respiratory failure. Remained stable on the vent. Plan is for patient to undergo bronchoscopy ? 08/13/2023 remains stable on the vent ? 08/14/2023; patient remains stable on the vent. Has some bloody aspirate from his suction tubing H&H however remained stable. ? 08/29/2023; patient has remained on the vent for prolonged period of time plan is for patient to undergo tracheostomy. 3. Acute VTE (RLE DVT and PE) -Patient underwent VQ scan which was nonconclusive lower extremity duplex demonstrated acute right lower extremity DVT. Patient is on heparin The estimated ejection fraction is 55 %. Unable to assess diastolic dysfunction. Moderately dilated right ventricle. Trivial mitral valve insufficiency. ? 08/10/2023 CTA demonstrated evidence of pulmonary embolism (There is evidence of a intraluminal filling defects in small branches in the right lower lobe suggestive of small pulmonary emboli. No big thrombus is seen.) Patient remains on apixaban plan is to hold and transition to heparin for patient to undergo ultrasound-guided thoracocentesis ? 08/14/2023 patient remains on heparin drip. ? 08/29/2023; heparin drip had to be discontinued after patient developed GI bleed subsequently underwent IVC filter placement on 08/18/2023 4. Acute congestive heart failure with preserved ejection fraction -Echo from 08/04/2023 demonstrated EF of 55%. Patient management strict input and output, fluid restriction as well as diuretic therapy with furosemide 5. Bilateral pleural effusions right greater than left with diffuse bilateral -Plan is for patient to undergo ultrasound-guided thoracocentesis. Patient systemic anticoagulation with apixaban to be held restarted on heparin ? 08/12/2023; Patient also underwent successful ultrasound-guided thoracentesis of the right hemithorax with 1.2 L of fluid removed. . 6. Pneumonia with Stenotrophomonas maltophilia CT of the chest demonstrated bilateral pulmonary infiltrates involving both upper and lower lobes. Patient remains on broad-spectrum antibiotic therapy ? 08/13/2023; sputum cultures grew Stenotrophomonas maltophilia. Patient antibiotic therapy subsequently adjusted ? 08/29/2023; patient grew Stenotrophomonas maltophilia in both blood and sputum which was found to be resistant to Levaquin which was initially sensitive. Antibiotic therapy subsequently adjusted to Rocephin and minocycline. Patient did develop hemoptysis underwent bronchoscopy on 08/12/2023 mild erythema was found throughout the tracheobronchial tree 7. Chronic kidney disease stage IIIb ? Monitoring kidney function ? 08/11/2023; kidney function continues to worsen following diagnostician as well as diuretic therapy nephrology on board ? 08/13/2023 patient kidney function did worsen necessitating initiation of hemodialysis by nephrology ? 08/29/2023; patient is on hemodialysis 8. Presence of solitary kidney ? 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 Hypokalemia ? Corrected per protocol repeat labs ordered for subsequent management 10. Hypertension - Blood pressure controlled, patient is on amlodipine continue also on chlorthalidone held 11. Acute cystitis ? Patient remains on broad-spectrum antibiotics 12. Upper GI bleed ? Patient underwent EGD on 08/25/2023 was found to have a tenosynovitis mucosa in the stomach. He also had a PEG tube successfully placed during the EGD Time spent in the patient's overall evaluation,decision-making process, review of diagnostic data, adjustment of management, discussion with other providers, nursing nursing and ancillary staff involved in patient's care documentation, 55 Minutes
[2023-08-30] MEDS: Chlorhexidine 15 ML PO ×2 (08:14→20:41)
[2023-08-30] MEDS: Midodrine HCl 5 MG Tablet 10 MG PO ×2 (08:15→11:01)
[2023-08-30] MEDS: Pantoprazole Sodium 40 MG in 0.9% Normal Saline (100mL MB+) 100 ML 330 MG IV ×2 (08:17→20:40)
--- NOTE | 2023-08-30 08:36 | PN.HOSP_ITS ---
Reason for Visit Reason for Visit: Diagnoses Non-ST elevation (NSTEMI) myocardial infarction (08/03/23) Other pulmonary embolism without acute cor pulmonale (08/03/23) Acute embolism and thrombosis of unspecified deep veins of unspecified lower extremity (08/03/23) Pneumonia, unspecified organism (08/03/23) Pleural effusion, not elsewhere classified (08/03/23) Acute respiratory failure with hypoxia (08/03/23) Acute kidney failure, unspecified (08/03/23) Chronic kidney disease, stage 3b (08/03/23) Bacteremia (08/03/23) Subjective Subjective Patient seen remains on the vent and the plan is for patient to undergo trach placement later this afternoon Objective Data Objective Data Vital Signs: Vital Signs Temp Pulse Resp BP Pulse Ox O2 Del Method O2 Flow Rate 97 F L 100 17 120/63 96 Mechanical Ventilator 60 08/30/23 04:00 08/30/23 08:19 08/30/23 07:06 08/30/23 08:19 08/30/23 07:06 08/30/23 07:00 08/25/23 19:00 FiO2 60 08/30/23 07:00 Oxygen Flow Rate (L/min) 60 Oxygen Delivery Method Mechanical Ventilator Weight: 102.4 kg Body Mass Index (BMI) 36.3 Intake & Output: Intake and Output for Last 24 Hours 08/28/23 08/29/23 08/30/23 23:59 23:59 23:59 Intake Total 1900.10 / 2.33 2725.20 / 2770.50 1002.99 / 1002.99 Output Total 242 / 242 791 / 851 135 / 135 Balance 1658.10 / 1800.33 1934.20 / 1919.50 867.99 / 867.99 Lab / Micro Data 08/30/23 04:15 08/30/23 04:15 Labs: Laboratory Results - last 24 hr 08/29/23 10:38: POC Glucose 136 H 08/29/23 12:15: Sodium 133 L, Potassium 4.0, Chloride 101, Carbon Dioxide 22.0, BUN 84 H, Creatinine 3.98 H, Estim Creat Clear Calc 18.84, Est GFR (MDRD) Af Amer 19 L, Est GFR (MDRD) Non-Af 16 L, BUN/Creatinine Ratio 21.1 H, Glucose 136 H, Calcium 8.3 L, Phosphorus 5.7 H, Albumin 1.6 L 08/29/23 18:11: POC Glucose 132 H 08/29/23 23:20: POC Glucose 125 H 08/30/23 04:15: WBC 13.4 H, RBC 3.40 L, Hgb 8.7 L, Hct 29.3 L, MCV 86.2, MCH 25.6 L, MCHC 29.7 L, RDW Std Deviation 58.9 H, RDW Coeff of Raghavendra 20.5 H, Plt Count 136 L, MPV 11.7, Immature Gran % (Auto) 2.200 H, Neut % (Auto) 82.2 H, L ymph % (Auto) 5.8 L, Boyle % (Auto) 6.5, Eos % (Auto) 2.3, Baso % (Auto) 1.0, A bsolute Neuts (auto) 11.0 H, Absolute Lymphs (auto) 0.77 L, Nucleated RBC % 0.4, Sodium 133 L, Potassium 4.3, Chloride 100, Carbon Dioxide 21.0, Anion Gap 12, B UN 91 H, Creatinine 4.11 H, Estim Creat Clear Calc 18.50, Est GFR (MDRD) Af Amer 19 L, Est GFR (MDRD) Non-Af 15 L, BUN/Creatinine Ratio 22.1 H, Glucose 140 H, C alcium 8.1 L, Total Creatine Kinase 24 L, Triglycerides 217 H 08/30/23 04:26: POC Glucose 122 H Micro: Microbiology 08/17/23 09:15 Sputum, Induced/Lukens Gram Stain - Final 08/17/23 09:15 Sputum, Induced/Lukens Respiratory Culture - Final Stenotrophomonas maltophilia 08/17/23 09:00 Blood Culture (Wb) - Pic Blood Culture - Final Stenotrophomonas maltophilia 08/25/23 11:10 Blood Culture (Wb) - Left Hand Blood Culture - Preliminary No growth in 48 hours. 08/25/23 10:15 Blood Culture (Wb) - Pic Blood Culture - Preliminary No growth in 48 hours. 08/17/23 09:00 Blood Culture (Wb) - Right Wrist Blood Culture - Final No growth in 5 days. 08/12/23 12:29 Wash - Right Middle Lobe Virus Culture - Final 08/20/23 10:15 Stool Stool Occult Blood (CRISTIAN) - Final Occult Blood Positive 08/11/23 15:14 Fluid - Pleural (Lung) Gram Stain - Final 08/11/23 15:14 Fluid - Pleural (Lung) Body Fluid Culture - Final Culture exhibits no growth. 08/11/23 15:14 Fluid - Pleural (Lung) Anaerobic Culture - Final No growth in 5 days. 08/12/23 12:29 Wash - Bronchial Gram Stain - Final 08/12/23 12:29 Wash - Bronchial Respiratory Culture - Final Stenotrophomonas maltophilia 08/11/23 09:59 Sputum, Induced/Lukens Gram Stain - Final 08/11/23 09:59 Sputum, Induced/Lukens Respiratory Culture - Final Stenotrophomonas maltophilia 08/12/23 10:49 Nasal Secretion SARS-CoV-2 Antigen (Rapid) - Final 08/04/23 00:00 Sputum, Expectorated/Coughed Gram Stain - Final 08/04/23 00:00 Sputum, Expectorated/Coughed Respiratory Culture - Final 08/03/23 21:57 Urine, Random Legionella Antigen - Final 08/03/23 21:57 Urine, Random Streptococcus pneumoniae Antigen (M - Final 08/03/23 18:30 Mucosa - Nose SARS-CoV-2, Influenza & RSV (PCR) - Final Physical Exam Narrative GENERAL: Sedated on the vent HEENT: Atraumatic; normocephalic EYES; Anicteric, Normal Conjunctiva NECK; supple, normal thyroid, RESPIRATORY: Diminished to auscultation CARDIOVASCULAR: Regular S1 S2, GI: soft, normoactive bowel sounds, : No Renal angle tenderness; PEG tube in place EXTREMITIES: No edema, no clubbing, MUSCULOSKELETAL: no muscle wasting NEURO: Sedated on the vent SKIN: No Rash Assessment & Plan Assessment/Plan (1) Bacteremia due to Gram-negative bacteria: (2) Pulmonary embolus, right: (3) DVT (deep venous thrombosis): (4) Acute hypoxic respiratory failure: PLAN: Plan Patient is a 72-year-old gentleman admitted with shortness of breath was found to have elevated troponin consistent with acute non-STEMI treatment initiated per protocol admitted to the intensive care unit. Patient was found to be in acute respiratory failure resulting in the use of BiPAP. Patient has had a complicated stay with prolonged stay on the vent underwent PEG tube placement developed pulmonary embolism started on heparin did not tolerate statin had an IVC filter placed. Kidney function also did worsen resulting in initiation of hemodialysis. Had a PEG tube placed. 1. Acute non-STEMI ? Patient admitted to the intensive care unit managed per protocol with heparin, aspirin added statin therapy and beta-blockers with consultation placed to cardiology. Plan is for patient to undergo left heart catheterization ? 08/09/2023 cardiac catheterization demonstrated Normal left main coronary artery, First diagonal vessel with 90% long proximal stenosis, Left anterior descending artery with mild disease ,Nondominant left circumflex artery with first obtuse marginal branch with 70% stenosis, Totally occluded right coronary artery with [id number] collaterals ,Low normal left ventricular ejection fraction noted on echocardiogram with dilated right ventricle 2. Acute hypoxic respiratory failure ? Multifactorial including acute congestive heart failure, suspected PE as well as pneumonia patient placed on noninvasive ventilation Airvo. Consult placed to stitchdown thread laster notes and recommendations reviewed ? 08/09/2023.Patient seen remains on noninvasive ventilation on BiPAP. Given his significant oxygen requirement decision was made for patient to undergo CTA of the chest to evaluate possible clot burden. ? 08/10/2023; CTA of the chest demonstrated evidence of pulmonary embolism, bilateral pulmonary infiltrates as well as bilateral pleural effusion right greater than left. ? 08/11/2023; respiratory status continues to worsen plan is for patient to undergo elective intubation ? 08/12/2023; Patient was electively intubated the day prior due to worsening respiratory failure. Remained stable on the vent. Plan is for patient to undergo bronchoscopy ? 08/13/2023 remains stable on the vent ? 08/14/2023; patient remains stable on the vent. Has some bloody aspirate from his suction tubing H&H however remained stable. ? 08/29/2023; patient has remained on the vent for prolonged period of time plan is for patient to undergo tracheostomy. ? 08/30/2023;Patient seen remains on the vent and the plan is for patient to undergo trach placement later this afternoon 3. Acute VTE (RLE DVT and PE) -Patient underwent VQ scan which was nonconclusive lower extremity duplex demonstrated acute right lower extremity DVT. Patient is on heparin The estimated ejection fraction is 55 %. Unable to assess diastolic dysfunction. Moderately dilated right ventricle. Trivial mitral valve insufficiency. ? 08/10/2023 CTA demonstrated evidence of pulmonary embolism (There is evidence of a intraluminal filling defects in small branches in the right lower lobe suggestive of small pulmonary emboli. No big thrombus is seen.) Patient remains on apixaban plan is to hold and transition to heparin for patient to undergo ultrasound-guided thoracocentesis ? 08/14/2023 patient remains on heparin drip. ? 08/29/2023; heparin drip had to be discontinued after patient developed GI bleed subsequently underwent IVC filter placement on 08/18/2023 4. Acute congestive heart failure with preserved ejection fraction -Echo from 08/04/2023 demonstrated EF of 55%. Patient management strict input and output, fluid restriction as well as diuretic therapy with furosemide 5. Bilateral pleural effusions right greater than left with diffuse bilateral -Plan is for patient to undergo ultrasound-guided thoracocentesis. Patient systemic anticoagulation with apixaban to be held restarted on heparin ? 08/12/2023; Patient also underwent successful ultrasound-guided thoracentesis of the right hemithorax with 1.2 L of fluid removed. . 6. Pneumonia with Stenotrophomonas maltophilia CT of the chest demonstrated bilateral pulmonary infiltrates involving both upper and lower lobes. Patient remains on broad-spectrum antibiotic therapy ? 08/13/2023; sputum cultures grew Stenotrophomonas maltophilia. Patient antibiotic therapy subsequently adjusted ? 08/29/2023; patient grew Stenotrophomonas maltophilia in both blood and sputum which was found to be resistant to Levaquin which was initially sensitive. Antibiotic therapy subsequently adjusted to Rocephin and minocycline. Patient did develop hemoptysis underwent bronchoscopy on 08/12/2023 mild erythema was found throughout the tracheobronchial tree 7. Chronic kidney disease stage IIIb ? Monitoring kidney function ? 08/11/2023; kidney function continues to worsen following diagnostician as well as diuretic therapy nephrology on board ? 08/13/2023 patient kidney function did worsen necessitating initiation of hemodialysis by nephrology ? 08/29/2023; patient is on hemodialysis 8. Presence of solitary kidney ? 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 Hypokalemia ? Corrected per protocol repeat labs ordered for subsequent management 10. Hypertension - Blood pressure controlled, patient is on amlodipine continue also on chlorthalidone held 11. Acute cystitis ? Patient remains on broad-spectrum antibiotics 12. Upper GI bleed ? Patient underwent EGD on 08/25/2023 was found to have a tenosynovitis mucosa in the stomach. He also had a PEG tube successfully placed during the EGD Time spent in the patient's overall evaluation,decision-making process, review of diagnostic data, adjustment of management, discussion with other providers, nursing nursing and ancillary staff involved in patient's care documentation, 52 Minutes Charges/Coding Visit Charges Inpatient E&M: 26077 [facility] L3
--- NOTE | 2023-08-30 09:32 | CASEMGMT ---
Updated progress notes sent to [facility] via [facility] at this time. The pt plan is still for [facility] today at 1615 and then transfer to [facility] tomorrow.
[2023-08-30 10:32] LABS: Anisocytosis 2+; Differential Comment SCANNED; Macrocytosis 1+; Microcytosis 1+
[2023-08-30 10:42] LABS: BNP,B-Type NATRIURETIC PEPTIDE 2680.8 pg/mL (0-100)
[2023-08-30] MEDS: Alteplase 2 MG/2 ML Vial IV (10:52)
[2023-08-30] MEDS: Insulin Glargine-YFGN 100 UNIT/ML Pen 26 UNIT SC (10:58)
[2023-08-30 11:17] LABS: Bedside Glucose 123 mg/dL (74-106)
--- NOTE | 2023-08-30 11:52 | CASEMGMT ---
Sonia from [facility] states that they cannot accommodate for CRRT. TC to Nephrology at this time and Sharmaine states that she talked to Dr. Terry and that the plan is to keep the pt on CRRT today and tonight, and then switch the pt to intermittent HD tomorrow (prior to pt DC to the LTACH). Sharmaine states that Nephrology is aware that the LTACH facilities do not accept pts needing CRRT. Sonia from [facility] updated with this information at this time via [employer].
--- NOTE | 2023-08-30 12:25 | NUR.TO.PHY ---
Dialysis Coordinator rounded with Dr. Terry on patient this am. Pt began CRRT yesterday, but clotted the system after a short period. This RN assessed temp cvc. art port had no pull, elinor port had sluggish pull. Activase instilled in both lumens per physician. Activase dwell time was 1 hr. This RN reassessed cvc function after removing activase. Both ports have smooth easy push/pull. CVC closed with heparin & Dr. Terry notified of findings. ICU staff will attempt CRRT s/p trach procedure today per Dr. Terry.
[2023-08-30] MEDS: Propofol 10MG/Ml 1,000 MG/100 ML Bottle 9.2 MG CONT INF ×2 (13:15→22:00)
[2023-08-30] MEDS: Norepinephrine 8 MG in 0.9% Normal Saline (250mL Bag) 242 ML 33.8 MG CONT INF (13:22)
--- NOTE | 2023-08-30 14:48 | PN.RENAL_ITS ---
Subjective Subjective on 20 mcg of levophed Objective Data Objective Data Vital Signs: Vital Signs Temp Pulse Resp BP Pulse Ox O2 Del Method O2 Flow Rate 97.5 F L 97 17 117/67 94 Mechanical Ventilator 60 08/30/23 13:15 08/30/23 13:15 08/30/23 13:15 08/30/23 13:15 08/30/23 13:15 08/30/23 13:15 08/25/23 19:00 FiO2 60 08/30/23 13:15 Oxygen Flow Rate (L/min) 60 Oxygen Delivery Method Mechanical Ventilator Weight: 102.4 kg Body Mass Index (BMI) 36.3 Intake & Output: Intake and Output for Last 24 Hours 08/28/23 08/29/23 08/30/23 23:59 23:59 23:59 Intake Total 1900.10 / 2042.33 2725.20 / 2770.50 1467.12 / 1467.12 Output Total 242 / 242 791 / 851 135 / 135 Balance 1658.10 / 1800.33 1934.20 / 1919.50 1332.12 / 1332.12 Lab / Micro Data 08/30/23 04:15 08/30/23 04:15 Labs: Laboratory Results - last 24 hr 08/29/23 18:11: POC Glucose 132 H 08/29/23 23:20: POC Glucose 125 H 08/30/23 04:15: WBC 13.4 H, RBC 3.40 L, Hgb 8.7 L, Hct 29.3 L, MCV 86.2, MCH 25.6 L, MCHC 29.7 L, RDW Std Deviation 58.9 H, RDW Coeff of Raghavendra 20.5 H, Plt Count 136 L, MPV 11.7, Immature Gran % (Auto) 2.200 H, Neut % (Auto) 82.2 H, L ymph % (Auto) 5.8 L, Gonzales % (Auto) 6.5, Eos % (Auto) 2.3, Baso % (Auto) 1.0, A bsolute Neuts (auto) 11.0 H, Absolute Lymphs (auto) 0.77 L, Nucleated RBC % 0.4, Differential Comment SCANNED, Anisocytosis 2+, Microcytosis 1+, Macrocytosis 1+, Sodium 133 L, Potassium 4.3, Chloride 100, Carbon Dioxide 21.0, Anion Gap 12, B UN 91 H, Creatinine 4.11 H, Estim Creat Clear Calc 18.50, Est GFR (MDRD) Af Amer 19 L, Est GFR (MDRD) Non-Af 15 L, BUN/Creatinine Ratio 22.1 H, Glucose 140 H, C alcium 8.1 L, Total Creatine Kinase 24 L, B-Natriuretic Peptide 2680.8 H, T riglycerides 217 H 08/30/23 04:26: POC Glucose 122 H 08/30/23 10:57: POC Glucose 123 H Micro: Microbiology 08/25/23 11:10 Blood Culture (Wb) - Left Hand Blood Culture - Final No growth in 5 days. 08/25/23 10:15 Blood Culture (Wb) - Pic Blood Culture - Final No growth in 5 days. 08/17/23 09:15 Sputum, Induced/Lukens Gram Stain - Final 08/17/23 09:15 Sputum, Induced/Lukens Respiratory Culture - Final Stenotrophomonas maltophilia 08/17/23 09:00 Blood Culture (Wb) - Pic Blood Culture - Final Stenotrophomonas maltophilia 08/17/23 09:00 Blood Culture (Wb) - Right Wrist Blood Culture - Final No growth in 5 days. 08/12/23 12:29 Wash - Right Middle Lobe Virus Culture - Final 08/20/23 10:15 Stool Stool Occult Blood (CRISTIAN) - Final Occult Blood Positive 08/11/23 15:14 Fluid - Pleural (Lung) Gram Stain - Final 08/11/23 15:14 Fluid - Pleural (Lung) Body Fluid Culture - Final Culture exhibits no growth. 08/11/23 15:14 Fluid - Pleural (Lung) Anaerobic Culture - Final No growth in 5 days. 08/12/23 12:29 Wash - Bronchial Gram Stain - Final 08/12/23 12:29 Wash - Bronchial Respiratory Culture - Final Stenotrophomonas maltophilia 08/11/23 09:59 Sputum, Induced/Lukens Gram Stain - Final 08/11/23 09:59 Sputum, Induced/Lukens Respiratory Culture - Final Stenotrophomonas maltophilia 08/12/23 10:49 Nasal Secretion SARS-CoV-2 Antigen (Rapid) - Final 08/04/23 00:00 Sputum, Expectorated/Coughed Gram Stain - Final 08/04/23 00:00 Sputum, Expectorated/Coughed Respiratory Culture - Final 08/03/23 21:57 Urine, Random Legionella Antigen - Final 08/03/23 21:57 Urine, Random Streptococcus pneumoniae Antigen (M - Final 08/03/23 18:30 Mucosa - Nose SARS-CoV-2, Influenza & RSV (PCR) - Final Radiography Diagnostic Testing: Radiology Impression Chest X-Ray 08/30/23 06:50 IMPRESSION: Stable exam. Electronically Signed: Mehdi Ernandez MD at 9:01 EDT , Physical Exam Narrative On vent support, no apparent distress S1, S2, RRR Diminished breath sounds Abdomen soft, positive bowel sounds Edema bilateral lower legs Nontunneled right IJ temporary dialysis catheter dressing clean, dry and intact Indwelling Saravia clear yellow urine in bag Const alert and oriented x3 General Appearance: well developed and patient mechanically ventilated Orientation / Consciousness: oriented to person, oriented to place and oriented to time HEENT normocephalic Neck no lymphadenopathy Resp Auscultation: crackles right and left and rhonchi throughout Cardio regular rate and no murmurs GI non-tender and non-distended Auscultation: normoactive bowel sounds Palpation: soft Bladder / Kidney Exam: catheter in place Skin no rashes or lesions noted Neuro Sensorium / Orientation: awake, alert and sedated on vent Psych cooperative Assessment & Plan Assessment/Plan (1) TRENA (acute kidney injury): PLAN: 72-year-old male with past medical history significant for 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 Terry (after surgery baseline creatinine around 2.0), presented emergency room on 08/02 with complaints of shortness of breath with exertion, admitted for non-STEMI, suspected pneumonia. - TRENA superimposed on CKD; TRENA likely from ischemic ATN. Renal serologies p- ANCA, c-ANCA, double-stranded DNA, glomerular basement membrane antibody, C3 all normal. C4 complement slightly elevated at 46. Patient was initiated on hemodialysis 08/11 (serum creatinine peaked 4.98 on 08/11) as renal function was worsening and urine output declining. No improvement in renal function, today serum creatinine 4.81, BUN 113. Declining urine output. Patient dialyzed today with minimal fluid removal due to low blood pressures, 500ml UF. He is on Levophed 8mcg. Patient has some urine output but that seems to be declining. Weights are trending up; admission weight around 88 kg, current weight around 100kg. Because of not much improvement in blood pressures and worsening volume status patient seems to be not tolerating intermittent hemodialysis therefore we will start CRRT -Bacteremia due to gram-negative bacteria/ stenotrophomonas; antibiotics per ID, currently IV ceftazidime and p.o. minocycline -ENT and GI consulted for tracheostomy and PEG tube placement -If patient remains dialysis dependent he will need tunneled HD catheter placed before hospital discharge. Needs to clear bacteremia before tunneled dialysis placement. Repeat cultures 08/24 no growth plan trach today CRRT today possible dc to LTACH tomorrow will need HD at LTACH called and confirmed that they can do HD with temp catheter dw Dr Munoz
--- NOTE | 2023-08-30 16:06 | OP.PCM_ITS ---
Problems Associated Problem List Diagnoses (1) Acute hypoxic respiratory failure: Report of Operation Date of Procedure: 08/30/23 Pre-Operative Diagnosis: respiratory failure Post-Operative Diagnosis: respiratory failure Surgery/Procedure Performed:: tracheostomy with francesca flap Surgeon: Brenton López Type of Anesthesia: General Description of Procedure: on the day of the procedure, after appropriate informed consent was obtained, the patient was brought to the operating room and placed in supine position on the operating table from the ICU. He arrived intubated. A shoulder roll was placed. The neck was prepped and draped in sterile fashion and a 2cm incision was injected 2cm superior to the sternal notch with lidocaine/epinephrine. An incision was made with a 15 blade. a lipectomy was performed with an allis and the bovie. the infrahyoid strap muscles were divided along the midline raphe and retracted laterally with [employer] retractors. The thyroid isthmus was retracted superiorly with a vein hook. the pretracheal fascia was incised and swept off of the trachea. The endotracheal tube was advanced by the benedictos thesiologist. an incision was made in the trachea between rings 1 and 2 with a 1 blade. a francesca flap was created with a curved heavy bonilla. the endotracheal tube was retracted above the tracheotomy and a 8DCT shiley was placed. the circuit was hooked up and end tidal CO2 was seen. it was secured at 4 corners with 3-0 silk and with an umbilical tie. He was transferred to the ICU in stable condition. Dr trav park was present and scrubbed for the entire case and was critical for its completion.
[2023-08-30] MEDS: Lidocaine 1% /Epi 1:100 (20ml) 20 ML Vial (17:12)
[2023-08-30 18:50] LABS: Bedside Glucose 118 mg/dL (74-106)
[2023-08-30] MEDS: Atorvastatin Calcium 40 MG Tablet GT (20:40)
[2023-08-30] MEDS: PUREFLOW B SOLUTION 4K 5,000 ML BAG 9 BAG PF (22:03)
[2023-08-31] VITALS (60 sets, daily range): BP systolic 79–112; BP diastolic 47–66; PULSE 93–111; RESP 16–26; TEMP 36.3–36.6; O2SAT 92–99; BMI 36.2
[2023-08-31] MEDS: Norepinephrine 8 MG in 0.9% Normal Saline (250mL Bag) 242 ML 22.5 MG CONT INF (00:21)
[2023-08-31] MEDS: fentaNYL drip 100 ML 10 MCG CONT INF ×3 (01:36→20:43)
[2023-08-31 03:36] LABS: Absolute Neutrophil Count 8.9 X10^3/uL (2.0-7.7); Basophil# 0.07 X10^3/uL; Basophil% 0.6 % (0-1); Eosinophil# 0.18 X10^3/uL; Eosinophils% 1.7 % (0-5); Hematocrit 27.1 % (40-54); Hemoglobin 8.2 g/dL (13.0-16.5); Lymphocyte % 6.4 % (19-41); Mean Corp Hgb Conc 30.3 g/dL (32-36); Mean Corpuscular Hgb 26.2 pg (27.0-32.0); Mean Corpuscular Volume 86.6 fL (80-94); Mean Platelet Vol. 11.2 fl (6.2-12.0); Monocyte# 0.92 X10^3/uL; Monocyte% 8.5 % (0-10); NRBC Flagged by Analyzer 0.5 % (0-5); Neutrophil # 8.86 X10^3/uL (2.7-7.7); Neutrophil % 81.6 % (47-70); POSITIVE MORPHOLOGY YES; Platelet Count 138 K/mm3 (150-450); RBC Distribution Width CV 20.6 % (11.6-14.6); RBC Distribution Width SD 61.7 fl (35.1-43.9); Red Blood Count 3.13 M/mm3 (4.6-6.2); White Blood Count 10.9 K/mm3 (4.4-11.0)
[2023-08-31 03:45] LABS: Differential Indicated SCAN CRITERIA MET
[2023-08-31 03:57] LABS: Anion Gap 12 (5-15); BUN 91 mg/dL (7-18); BUN/Creat Ratio 21.6 RATIO (10-20); Calcium,Total 8.2 mg/dL (8.5-10.1); Chloride 100 mmol/L (98-107); Creatinine, Serum 4.21 mg/dL (0.70-1.30); EST Glomerular Filtration Rate 15 mL/min (>60); Est Glom Filt Rate - Afr Amer 18 mL/min (>60); Estimated Creatinine Clearance 17.99 ml/min; Glucose 112 mg/dL (74-106); Sodium Level 132 mmol/L (136-145)
[2023-08-31 05:49] LABS: Bedside Glucose 97 mg/dL (74-106)
[2023-08-31] MEDS: Propofol 10MG/Ml 1,000 MG/100 ML Bottle 9.2 MG CONT INF ×2 (06:30→15:39)
[2023-08-31] MEDS: NEPRO TUBE FEED 1,000 ML 25 ML GT (06:30)
[2023-08-31] MEDS: Menthol/Lanolin/Calamine/Znox 113 GM Tube 1 APPLIC TOPICAL ×3 (06:31→20:41)
--- NOTE | 2023-08-31 06:41 | PCM.PN.INT ---
Assessment & Plan Assessment/Plan (1) Acute hypoxic respiratory failure: (2) Pleural effusion, right: (3) TRENA (acute kidney injury): PLAN: Plan RECOMMENDATIONS: 1. Continue assist-control mode mechanical ventilation. Wean FiO2 and PEEP for saturations greater than 90%. 2. Continue current sedation regimen. 3. Dialysis support per nephrology recommendations. 4. Continue Levophed to maintain a mean arterial pressure at or above 65 mmHg. 5. Continue tube feeding as tolerated. 6. Continue appropriate GI prophylaxis. 7. Awaiting LTACH disposition. IMPRESSIONS: 1. Acute hypoxemic respiratory failure Initially, the patient's respiratory decompensation was felt to be a consequence of decompensated heart failure with preserved ejection fraction in the setting of an NSTEMI. However, underlying infection related to stenotrophomonas seems more likely. The patient was also diagnosed with a right lower extremity DVT and small nonocclusive right lower lobe PE. He was subsequently initiated on a weight-based heparin infusion. Ultimately, the patient continued to decompensate from a respiratory perspective and required intubation. Upon intubation, the patient was noted to have a significant amount of bleeding from his endotracheal tube, raising the suspicion for diffuse alveolar hemorrhage. Nevertheless, subsequent bronchoscopy was not consistent with DAH. The patient underwent thoracentesis as well from the right hemithorax which appeared to be transudative in nature. Cardiac catheterization was completed, for which medical therapy was recommended. The patient continues to have a tenuous respiratory status on the ventilator, requiring high FiO2. Over concerns that the ongoing bloody secretions could be contributing to his persistent high oxygenation requirement, an IVC filter was placed on August 17 in order to facilitate discontinuation of the weight-based heparin infusion. The patient has now completed a 10-day course of ceftaz/Henry per ID recommendations, due to a multidrug-resistant stenotrophomonas. The patient is status post tracheostomy and PEG tube placement, due to his failure to be weaned from invasive mechanical ventilatory support. Plan to continue nutritional support via tube feeding. 2. NSTEMI/acute decompensated heart failure with preserved ejection fraction Management per cardiology. 3. Acute on chronic kidney disease Nephrology is following. The patient's worsening renal insufficiency is likely multifactorial and related to prerenal etiology coupled with possible contrast nephropathy from catheterization and CTA chest. Continue ongoing dialysis support per nephrology recommendations. TIME: 31 minutes, independent of procedures, was spent addressing the patient's acute hypoxemic respiratory failure, NSTEMI, acute decompensated heart failure with preserved ejection fraction, stenotrophomonas pneumonia, acute on chronic kidney disease, review of all data and collaboration with care team. Subjective Subjective The patient was seen and examined at the bedside this morning. Events from the last 24 hours have been reviewed. The patient remains on Levophed at 10 mcg/min to maintain hemodynamic stability. An attempt was once again made to place the patient on CRRT yesterday. However, the patient's line once again clotted off. The patient underwent successful tracheostomy placement yesterday. Hemoglobin and platelet count are stable. The patient remains significantly overall net positive from a volume perspective for the hospitalization. Objective Data Objective Data The patient's most recent lab work, culture data and imaging studies have all been personally reviewed. Surface echocardiogram demonstrated normal LV size and function with an ejection fraction of 55%. Doppler study was positive for right-sided DVT. Sputum and blood cultures were positive for stenotrophomonas. Vital Signs: Vital Signs Temp Pulse Resp BP Pulse Ox O2 Del Method O2 Flow Rate 97.8 F 110 H 20 H 101/61 92 Mechanical Ventilator 60 08/31/23 04:00 08/31/23 06:00 08/31/23 06:00 08/31/23 06:00 08/31/23 06:00 08/31/23 06:00 08/25/23 19:00 FiO2 50 08/31/23 06:00 Oxygen Flow Rate (L/min) 60 Oxygen Delivery Method Mechanical Ventilator Weight: 224 lb 10.417 oz Body Mass Index (BMI) 36.2 Intake & Output: Intake and Output for Last 24 Hours 08/29/23 08/30/23 08/31/23 23:59 23:59 23:59 Intake Total 2725.20 / 2770.50 2094.74 / 2305.32 483.08 / 483.08 Output Total 791 / 851 620 / 719 119 / 119 Balance 1934.20 / 1919.50 1474.74 / 1586.32 364.08 / 364.08 Lab / Micro Data Attestation: I reviewed the patient's lab results. 08/31/23 03:25 08/31/23 03:25 Labs: Laboratory Results - last 24 hr 08/30/23 04:15: Plt Count 136 L, Differential Comment SCANNED, Anisocytosis 2+, Microcytosis 1+, Macrocytosis 1+, B-Natriuretic Peptide 2680.8 H 08/30/23 10:57: POC Glucose 123 H 08/30/23 18:33: POC Glucose 118 H 08/31/23 00:31: POC Glucose 97 08/31/23 03:25: WBC 10.9, RBC 3.13 L, Hgb 8.2 L, Hct 27.1 L, MCV 86.6, MCH 26.2 L, MCHC 30.3 L, RDW Std Deviation 61.7 H, RDW Coeff of Raghavendra 20.6 H, Plt Count 138 L, MPV 11.2, Immature Gran % (Auto) 1.200 H, Neut % (Auto) 81.6 H, Lymph % (Auto) 6.4 L, [place] % (Auto) 8.5, Eos % (Auto) 1.7, Baso % (Auto) 0.6, Absolute Neuts (auto) 8.9 H, Absolute Lymphs (auto) 0.70 L, Nucleated RBC % 0.5, Sodium 132 L, Potassium 5.0, Chloride 100, Carbon Dioxide 20.0 L, Anion Gap 12, BUN 91 H, Creatinine 4.21 H, Estim Creat Clear Calc 17.99, Est GFR (MDRD) Af Amer 18 L, Est GFR (MDRD) Non-Af 15 L, BUN/Creatinine Ratio 21.6 H, Glucose 112 H, Calcium 8.2 L Micro: Microbiology 08/25/23 11:10 Blood Culture (Wb) - Left Hand Blood Culture - Final No growth in 5 days. 08/25/23 10:15 Blood Culture (Wb) - Pic Blood Culture - Final No growth in 5 days. 08/17/23 09:15 Sputum, Induced/Lukens Gram Stain - Final 08/17/23 09:15 Sputum, Induced/Lukens Respiratory Culture - Final Stenotrophomonas maltophilia 08/17/23 09:00 Blood Culture (Wb) - Pic Blood Culture - Final Stenotrophomonas maltophilia 08/17/23 09:00 Blood Culture (Wb) - Right Wrist Blood Culture - Final No growth in 5 days. 08/12/23 12:29 Wash - Right Middle Lobe Virus Culture - Final 08/20/23 10:15 Stool Stool Occult Blood (CRISTIAN) - Final Occult Blood Positive 08/11/23 15:14 Fluid - Pleural (Lung) Gram Stain - Final 08/11/23 15:14 Fluid - Pleural (Lung) Body Fluid Culture - Final Culture exhibits no growth. 08/11/23 15:14 Fluid - Pleural (Lung) Anaerobic Culture - Final No growth in 5 days. 08/12/23 12:29 Wash - Bronchial Gram Stain - Final 08/12/23 12:29 Wash - Bronchial Respiratory Culture - Final Stenotrophomonas maltophilia 08/11/23 09:59 Sputum, Induced/Lukens Gram Stain - Final 08/11/23 09:59 Sputum, Induced/Lukens Respiratory Culture - Final Stenotrophomonas maltophilia 08/12/23 10:49 Nasal Secretion SARS-CoV-2 Antigen (Rapid) - Final 08/04/23 00:00 Sputum, Expectorated/Coughed Gram Stain - Final 08/04/23 00:00 Sputum, Expectorated/Coughed Respiratory Culture - Final 08/03/23 21:57 Urine, Random Legionella Antigen - Final 08/03/23 21:57 Urine, Random Streptococcus pneumoniae Antigen (M - Final 08/03/23 18:30 Mucosa - Nose SARS-CoV-2, Influenza & RSV (PCR) - Final ABG Data ABG results: ABG 08/11/23 10:13 Specimen Type ART Sample Site L Radial pH 7.47 H Bicarbonate Actual 36.1 H Total CO2 38 Base Excess 13 H O2 Saturation 99 O2 % 50.0 ABG pCO2 49.8 H ABG pO2 132 H Abhijit Test Positive Respiration Rate 14 O2 Delivery Device Adult Vent Vent Mode AC Tidal Volume 500.0 POC PEEP 10 Radiography Diagnostic Testing: Radiology Impression Chest X-Ray 08/30/23 06:50 IMPRESSION: Stable exam. Electronically Signed: Mehdi Ernandez MD at 9:01 EDT , Physical Exam Const Constitutional Narrative: Intubated, sedated and mechanically ventilated. No ventilator dyssynchrony noted. General Appearance: ill appearing and patient mechanically ventilated HEENT normocephalic and head/scalp atraumatic Eyes PERRL, EOMs intact bilaterally and conjunctivae normal Neck supple Neck Narrative: Stable tracheostomy site General: trachea midline Chest inspection of chest normal Resp Resp Narrative: Coarse mechanical breath sounds. Auscultation: diminished lung sounds; Negative for rales, rhonchi or wheezes Cardio regular rate, regular rhythm, S1 normal heart sound and S2 normal heart sound GI normal to inspection, nondistended, normoactive bowel sounds Inspection: GI tube present Extremity General Extremity: edema Skin no rashes or lesions noted Neuro Sensorium / Orientation: sedated on vent Charges/Coding Procedures Hospitalists Procedures: 69446 Critical Care 1st Hr
--- NOTE | 2023-08-31 07:03 | PN.HOSP_ITS ---
Reason for Visit Reason for Visit: Diagnoses Non-ST elevation (NSTEMI) myocardial infarction (08/03/23) Other pulmonary embolism without acute cor pulmonale (08/03/23) Acute embolism and thrombosis of unspecified deep veins of unspecified lower extremity (08/03/23) Pneumonia, unspecified organism (08/03/23) Pleural effusion, not elsewhere classified (08/03/23) Acute respiratory failure with hypoxia (08/03/23) Acute kidney failure, unspecified (08/03/23) Chronic kidney disease, stage 3b (08/03/23) Bacteremia (08/03/23) Subjective Subjective Patient underwent tracheostomy with francesca flap by ENT on 08/30/2023. Plan is for patient to be assessed for possible discharge to LTAC Objective Data Objective Data Vital Signs: Vital Signs Temp Pulse Resp BP Pulse Ox O2 Del Method O2 Flow Rate 97.8 F 110 H 20 H 101/61 92 Mechanical Ventilator 60 08/31/23 04:00 08/31/23 06:00 08/31/23 06:00 08/31/23 06:00 08/31/23 06:00 08/31/23 06:00 08/25/23 19:00 FiO2 50 08/31/23 06:00 Oxygen Flow Rate (L/min) 60 Oxygen Delivery Method Mechanical Ventilator Weight: 101.9 kg Body Mass Index (BMI) 36.2 Intake & Output: Intake and Output for Last 24 Hours 08/29/23 08/30/23 08/31/23 23:59 23:59 23:59 Intake Total 2725.20 / 2770.50 2094.74 / 2305.32 483.08 / 483.08 Output Total 791 / 851 620 / 719 119 / 119 Balance 1934.20 / 1919.50 1474.74 / 1586.32 364.08 / 364.08 Lab / Micro Data 08/31/23 03:25 08/31/23 03:25 Labs: Laboratory Results - last 24 hr 08/30/23 04:15: Plt Count 136 L, Differential Comment SCANNED, Anisocytosis 2+, Microcytosis 1+, Macrocytosis 1+, B-Natriuretic Peptide 2680.8 H 08/30/23 10:57: POC Glucose 123 H 08/30/23 18:33: POC Glucose 118 H 08/31/23 00:31: POC Glucose 97 08/31/23 03:25: WBC 10.9, RBC 3.13 L, Hgb 8.2 L, Hct 27.1 L, MCV 86.6, MCH 26.2 L, MCHC 30.3 L, RDW Std Deviation 61.7 H, RDW Coeff of Raghavendra 20.6 H, Plt Count 138 L, MPV 11.2, Immature Gran % (Auto) 1.200 H, Neut % (Auto) 81.6 H, Lymph % (Auto) 6.4 L, [place] % (Auto) 8.5, Eos % (Auto) 1.7, Baso % (Auto) 0.6, Absolute Neuts (auto) 8.9 H, Absolute Lymphs (auto) 0.70 L, Nucleated RBC % 0.5, Sodium 132 L, Potassium 5.0, Chloride 100, Carbon Dioxide 20.0 L, Anion Gap 12, BUN 91 H, Creatinine 4.21 H, Estim Creat Clear Calc 17.99, Est GFR (MDRD) Af Amer 18 L, Est GFR (MDRD) Non-Af 15 L, BUN/Creatinine Ratio 21.6 H, Glucose 112 H, Calcium 8.2 L Micro: Microbiology 08/25/23 11:10 Blood Culture (Wb) - Left Hand Blood Culture - Final No growth in 5 days. 08/25/23 10:15 Blood Culture (Wb) - Pic Blood Culture - Final No growth in 5 days. 08/17/23 09:15 Sputum, Induced/Lukens Gram Stain - Final 08/17/23 09:15 Sputum, Induced/Lukens Respiratory Culture - Final Stenotrophomonas maltophilia 08/17/23 09:00 Blood Culture (Wb) - Pic Blood Culture - Final Stenotrophomonas maltophilia 08/17/23 09:00 Blood Culture (Wb) - Right Wrist Blood Culture - Final No growth in 5 days. 08/12/23 12:29 Wash - Right Middle Lobe Virus Culture - Final 08/20/23 10:15 Stool Stool Occult Blood (CRISTIAN) - Final Occult Blood Positive 08/11/23 15:14 Fluid - Pleural (Lung) Gram Stain - Final 08/11/23 15:14 Fluid - Pleural (Lung) Body Fluid Culture - Final Culture exhibits no growth. 08/11/23 15:14 Fluid - Pleural (Lung) Anaerobic Culture - Final No growth in 5 days. 08/12/23 12:29 Wash - Bronchial Gram Stain - Final 08/12/23 12:29 Wash - Bronchial Respiratory Culture - Final Stenotrophomonas maltophilia 08/11/23 09:59 Sputum, Induced/Lukens Gram Stain - Final 08/11/23 09:59 Sputum, Induced/Lukens Respiratory Culture - Final Stenotrophomonas maltophilia 08/12/23 10:49 Nasal Secretion SARS-CoV-2 Antigen (Rapid) - Final 08/04/23 00:00 Sputum, Expectorated/Coughed Gram Stain - Final 08/04/23 00:00 Sputum, Expectorated/Coughed Respiratory Culture - Final 08/03/23 21:57 Urine, Random Legionella Antigen - Final 08/03/23 21:57 Urine, Random Streptococcus pneumoniae Antigen (M - Final 08/03/23 18:30 Mucosa - Nose SARS-CoV-2, Influenza & RSV (PCR) - Final Radiography Diagnostic Testing: Radiology Impression Chest X-Ray 08/30/23 06:50 IMPRESSION: Stable exam. Electronically Signed: Mehdi Ernandez MD at 9:01 EDT , Physical Exam Narrative GENERAL: Sedated on the vent HEENT: Trach in place EYES; Anicteric, Normal Conjunctiva NECK; supple, normal thyroid, RESPIRATORY: Diminished to auscultation CARDIOVASCULAR: Regular S1 S2, GI: soft, normoactive bowel sounds, : No Renal angle tenderness; PEG tube in place EXTREMITIES: No edema, no clubbing, MUSCULOSKELETAL: no muscle wasting NEURO: Sedated on the vent SKIN: No Rash Assessment & Plan Assessment/Plan (1) Bacteremia due to Gram-negative bacteria: (2) Pulmonary embolus, right: (3) DVT (deep venous thrombosis): (4) Acute hypoxic respiratory failure: PLAN: Plan Patient is a 72-year-old gentleman admitted with shortness of breath was found to have elevated troponin consistent with acute non-STEMI treatment initiated per protocol admitted to the intensive care unit. Patient was found to be in acute respiratory failure resulting in the use of BiPAP. Patient has had a complicated stay with prolonged stay on the vent underwent PEG tube placement developed pulmonary embolism started on heparin did not tolerate statin had an IVC filter placed. Kidney function also did worsen resulting in initiation of hemodialysis. Had a PEG tube placed. 1. Acute non-STEMI ? Patient admitted to the intensive care unit managed per protocol with heparin, aspirin added statin therapy and beta-blockers with consultation placed to cardiology. Plan is for patient to undergo left heart catheterization ? 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 Acute hypoxic respiratory failure ? Multifactorial including acute congestive heart failure, suspected PE as well as pneumonia patient placed on noninvasive ventilation Airvo. Consult placed to dimethylaniline sulfator operator notes and recommendations reviewed ? 08/09/2023.Patient seen remains on noninvasive ventilation on BiPAP. Given his significant oxygen requirement decision was made for patient to undergo CTA of the chest to evaluate possible clot burden. ? 08/10/2023; CTA of the chest demonstrated evidence of pulmonary embolism, bilateral pulmonary infiltrates as well as bilateral pleural effusion right greater than left. ? 08/11/2023; respiratory status continues to worsen plan is for patient to undergo elective intubation ? 08/12/2023; Patient was electively intubated the day prior due to worsening respiratory failure. Remained stable on the vent. Plan is for patient to undergo bronchoscopy ? 08/13/2023 remains stable on the vent ? 08/14/2023; patient remains stable on the vent. Has some bloody aspirate from his suction tubing H&H however remained stable. ? 08/29/2023; patient has remained on the vent for prolonged period of time plan is for patient to undergo tracheostomy. ? 08/30/2023;Patient seen remains on the vent and the plan is for patient to undergo trach placement later this afternoon ? 08/31/2023;Patient underwent tracheostomy with francesca flap by ENT on 08/30/2023. Plan is for patient to be assessed for possible discharge to LTAC 3. Acute VTE (RLE DVT and PE) -Patient underwent VQ scan which was nonconclusive lower extremity duplex demonstrated acute right lower extremity DVT. Patient is on heparin The estimated ejection fraction is 55 %. Unable to assess diastolic dysfunction. Moderately dilated right ventricle. Trivial mitral valve insufficiency. ? 08/10/2023 CTA demonstrated evidence of pulmonary embolism (There is evidence of a intraluminal filling defects in small branches in the right lower lobe suggestive of small pulmonary emboli. No big thrombus is seen.) Patient remains on apixaban plan is to hold and transition to heparin for patient to undergo ultrasound-guided thoracocentesis ? 08/14/2023 patient remains on heparin drip. ? 08/29/2023; heparin drip had to be discontinued after patient developed GI bleed subsequently underwent IVC filter placement on 08/18/2023 4. Acute congestive heart failure with preserved ejection fraction -Echo from 08/04/2023 demonstrated EF of 55%. Patient management strict input and output, fluid restriction as well as diuretic therapy with furosemide 5. Bilateral pleural effusions right greater than left with diffuse bilateral -Plan is for patient to undergo ultrasound-guided thoracocentesis. Patient systemic anticoagulation with apixaban to be held restarted on heparin ? 08/12/2023; Patient also underwent successful ultrasound-guided thoracentesis of the right hemithorax with 1.2 L of fluid removed. . 6. Pneumonia with Stenotrophomonas maltophilia CT of the chest demonstrated bilateral pulmonary infiltrates involving both upper and lower lobes. Patient remains on broad-spectrum antibiotic therapy ? 08/13/2023; sputum cultures grew Stenotrophomonas maltophilia. Patient antibiotic therapy subsequently adjusted ? 08/29/2023; patient grew Stenotrophomonas maltophilia in both blood and sputum which was found to be resistant to Levaquin which was initially sensitive. Antibiotic therapy subsequently adjusted to Rocephin and minocycline. Patient did develop hemoptysis underwent bronchoscopy on 08/12/2023 mild erythema was found throughout the tracheobronchial tree 7. Chronic kidney disease stage IIIb ? Monitoring kidney function ? 08/11/2023; kidney function continues to worsen following diagnostician as well as diuretic therapy nephrology on board ? 08/13/2023 patient kidney function did worsen necessitating initiation of hemodialysis by nephrology ? 08/29/2023; patient is on hemodialysis 8. Presence of solitary kidney ? 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 Hypokalemia ? Corrected per protocol repeat labs ordered for subsequent management 10. Hypertension - Blood pressure controlled, patient is on amlodipine continue also on chlorthalidone held 11. Acute cystitis ? Patient remains on broad-spectrum antibiotics 12. Upper GI bleed ? Patient underwent EGD on 08/25/2023 was found to have a tenosynovitis mucosa in the stomach. He also had a PEG tube successfully placed during the EGD Time spent in the patient's overall evaluation,decision-making process, review of diagnostic data, adjustment of management, discussion with other providers, nursing nursing and ancillary staff involved in patient's care documentation, 35 Minutes Charges/Coding Visit Charges Inpatient E&M: 68764 Subs Hosp L2
[2023-08-31] MEDS: Chlorhexidine 15 ML PO ×2 (08:29→20:40)
[2023-08-31] MEDS: Midodrine HCl 5 MG Tablet 10 MG PO ×4 (08:29→20:40)
[2023-08-31] MEDS: Pantoprazole Sodium 40 MG in 0.9% Normal Saline (100mL MB+) 100 ML 330 MG IV ×2 (08:29→20:41)
[2023-08-31] MEDS: Insulin Glargine-YFGN 100 UNIT/ML Pen 26 UNIT SC (08:48)
--- NOTE | 2023-08-31 09:14 | PCM.PN.REN ---
Subjective Subjective On ventilator support. No overnight events. Objective Data Objective Data Vital Signs: Vital Signs Temp Pulse Resp BP Pulse Ox O2 Del Method O2 Flow Rate 97.8 F 103 H 24 H 101/57 L 93 Mechanical Ventilator 60 08/31/23 04:00 08/31/23 08:32 08/31/23 08:00 08/31/23 08:32 08/31/23 08:00 08/31/23 08:00 08/25/23 19:00 FiO2 50 08/31/23 08:00 Oxygen Flow Rate (L/min) 60 Oxygen Delivery Method Mechanical Ventilator Weight: 101.9 kg Body Mass Index (BMI) 36.2 Intake & Output: Intake and Output for Last 24 Hours 08/29/23 08/30/23 08/31/23 23:59 23:59 23:59 Intake Total 2725.20 / 2770.50 2094.74 / 2305.32 545.28 / 545.28 Output Total 791 / 851 620 / 719 119 / 119 Balance 1934.20 / 1919.50 1474.74 / 1586.32 426.28 / 426.28 Lab / Micro Data 08/31/23 03:25 08/31/23 03:25 Labs: Laboratory Results - last 24 hr 08/30/23 04:15: Plt Count 136 L, Differential Comment SCANNED, Anisocytosis 2+, Microcytosis 1+, Macrocytosis 1+, B-Natriuretic Peptide 2680.8 H 08/30/23 10:57: POC Glucose 123 H 08/30/23 18:33: POC Glucose 118 H 08/31/23 00:31: POC Glucose 97 08/31/23 03:25: WBC 10.9, RBC 3.13 L, Hgb 8.2 L, Hct 27.1 L, MCV 86.6, MCH 26.2 L, MCHC 30.3 L, RDW Std Deviation 61.7 H, RDW Coeff of Raghavendra 20.6 H, Plt Count 138 L, MPV 11.2, Immature Gran % (Auto) 1.200 H, Neut % (Auto) 81.6 H, Lymph % (Auto) 6.4 L, [place] % (Auto) 8.5, Eos % (Auto) 1.7, Baso % (Auto) 0.6, Absolute Neuts (auto) 8.9 H, Absolute Lymphs (auto) 0.70 L, Nucleated RBC % 0.5, Sodium 132 L, Potassium 5.0, Chloride 100, Carbon Dioxide 20.0 L, Anion Gap 12, BUN 91 H, Creatinine 4.21 H, Estim Creat Clear Calc 17.99, Est GFR (MDRD) Af Amer 18 L, Est GFR (MDRD) Non-Af 15 L, BUN/Creatinine Ratio 21.6 H, Glucose 112 H, Calcium 8.2 L Micro: Microbiology 08/25/23 11:10 Blood Culture (Wb) - Left Hand Blood Culture - Final No growth in 5 days. 08/25/23 10:15 Blood Culture (Wb) - Pic Blood Culture - Final No growth in 5 days. 08/17/23 09:15 Sputum, Induced/Lukens Gram Stain - Final 08/17/23 09:15 Sputum, Induced/Lukens Respiratory Culture - Final Stenotrophomonas maltophilia 08/17/23 09:00 Blood Culture (Wb) - Pic Blood Culture - Final Stenotrophomonas maltophilia 08/17/23 09:00 Blood Culture (Wb) - Right Wrist Blood Culture - Final No growth in 5 days. 08/12/23 12:29 Wash - Right Middle Lobe Virus Culture - Final 08/20/23 10:15 Stool Stool Occult Blood (CRISTIAN) - Final Occult Blood Positive 08/11/23 15:14 Fluid - Pleural (Lung) Gram Stain - Final 08/11/23 15:14 Fluid - Pleural (Lung) Body Fluid Culture - Final Culture exhibits no growth. 08/11/23 15:14 Fluid - Pleural (Lung) Anaerobic Culture - Final No growth in 5 days. 08/12/23 12:29 Wash - Bronchial Gram Stain - Final 08/12/23 12:29 Wash - Bronchial Respiratory Culture - Final Stenotrophomonas maltophilia 08/11/23 09:59 Sputum, Induced/Lukens Gram Stain - Final 08/11/23 09:59 Sputum, Induced/Lukens Respiratory Culture - Final Stenotrophomonas maltophilia 08/12/23 10:49 Nasal Secretion SARS-CoV-2 Antigen (Rapid) - Final 08/04/23 00:00 Sputum, Expectorated/Coughed Gram Stain - Final 08/04/23 00:00 Sputum, Expectorated/Coughed Respiratory Culture - Final 08/03/23 21:57 Urine, Random Legionella Antigen - Final 08/03/23 21:57 Urine, Random Streptococcus pneumoniae Antigen (M - Final 08/03/23 18:30 Mucosa - Nose SARS-CoV-2, Influenza & RSV (PCR) - Final Physical Exam Narrative On ventilator support, no apparent distress S1, S2, RRR Coarse breath sounds Abdomen soft, positive bowel sounds Edema bilateral arms and legs Non-tunneled temporary right IJ dialysis catheter dressing clean, dry and intact Assessment & Plan Assessment/Plan (1) TRENA (acute kidney injury): PLAN: 72-year-old male with past medical history significant for 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 Terry (after surgery baseline creatinine around 2.0), presented emergency room on 08/02 with complaints of shortness of breath with exertion, admitted for non-STEMI, suspected pneumonia. - TRENA superimposed on CKD; TRENA likely from ischemic ATN. Renal serologies p-ANCA, c-ANCA, double-stranded DNA, glomerular basement membrane antibody, C3 all normal. C4 complement slightly elevated at 46. Patient was initiated on hemodialysis 08/11 (serum creatinine peaked 4.98 on 08/11) as renal function was worsening and urine output declining. No improvement in renal function and patient remains dialysis dependent. Declining urine output. He is on Levophed 8mcg. Weights are trending up; admission weight around 88 kg, current weight around 101kg. -Attempted CRRT last evening however had issues with system/sluggish temp HD line after ~3 hours on CRRT. Now off CRRT. Will attempt intermittent hemodialysis today using temporary HD catheter. Will attempt fluid removal with dialysis today, using albumin and increasing Levophed if needed. Patient is also on midodrine. If non-tunneled temporary catheter works well for dialysis then quite possibly patient will be discharged to [facility] today. We called and confirmed they do dialysis with temporary catheter at [facility]. Patient may eventually need tunneled HD catheter as there has been no noted renal recovery at this point -Bacteremia due to gram-negative bacteria/ stenotrophomonas; antibiotics per ID, currently IV ceftazidime and p.o. minocycline. Repeat blood cultures no growth. -ENT and GI consulted for tracheostomy and PEG tube placement
--- NOTE | 2023-08-31 09:29 | CASEMGMT ---
Addendum entered by Alysha Méndez 08/31/23 15:53: TC to Sharmaine from [facility] and updated with the plan that the pt won't be ready for DC until at least Tuesday (per Dr. Jim). Sharmaine states that they plan on dialyzing the pt tomorrow to ensure that the new catheter works appropriately. Vinh (RN from [facility]) also updated with the current plan. Addendum entered by Alysha Méndez 08/31/23 15:36: Dr. Jim states to this RN CM that the pt will now not be ready for DC until at least Tuesday. Sonia from [facility] updated. Dr. Munoz updated. Will continue to follow. Addendum entered by Alysha Méndez 08/31/23 15:20: Sonia from [facility] calls this RN CM stating that [facility] now wants the pt to receive HD here prior to being transferred to the [facility]. Dr. Jim and Dr. Munoz made aware of the plan. Burton (RN from [facility]) also updated with plan. TC to Sharmaine from [facility] to update but no answer, VM left stating plan. PLAN: Surgery tomorrow at 1300 and HD here at [facility] and then transfer to [facility] afterwards. Addendum entered by Alysha Méndez 08/31/23 14:47: Pt RN states to this RN CM that the pt is planned for surgery tomorrow at 1300. TC to Sonia at this time and updated. Sonia states that she would like transport set up for around 1600 tomorrow for the pt to receive HD there at the [facility]. TC to Sharmaine from [facility] and she states that she is agreeable with this plan. Dr. Munoz updated and also states agreeance with this plan. PLAN: Surgery tomorrow at 1300 and transfer to [facility] subsequently around 1600 for HD at the [facility]. Addendum entered by Alysha Méndez 08/31/23 10:18: Dr. Munoz talked to surgery. Surgery states that they are full today and won't be able to get the pt in until tomorrow at the earliest. Addendum entered by Alysha Méndez 08/31/23 10:15: The pt RN and Dr. Munoz states that the pt temp dialysis catheter is not functioning properly and the pt is going to need surgery scheduled in order to receive intermittent HD appropriately. Dr. Munoz states that he talked to Nephro and that the pt will not be able to get into surgery today and the plan is for surgery hopefully tomorrow. Sonia from [facility] updated. Original Note: Dr. Munoz and the Payroll Accounting Specialist state the the pt temp HD catheter is sluggish and was not working appropriately for CRRT. Dr. Munoz states that we will try to run intermittent HD now to see if this will work for the pt moving forward. Dr. Munoz states that if not, the pt will need surgery scheduled for this. Sonia ([facility]) updated with this information. Updated progress noted and current MAR sent to [facility] via [facility] [employer] at this time.
--- NOTE | 2023-08-31 09:45 | DS.PCM_ITS ---
Providers Date of Admission: 08/03/23 Date of Discharge: 08/31/23 Primary Care Physician: Dr. David Baptiste MD Consultations 08/03/23 17:36 Consult: Cardiology Routine Consulting Provider: Skyler Rowland Reason for Consult: Chest Pain EMERGENT Consult: No MD Notified: Yes Date Notified: 08/03/23 Time Notified: 16:43 Method of Notification: ED Physician Initiated 08/05/23 08:38 Consult: Food And Beverage Server / Pulmonary Medicine Routine Consulting Provider: Intensivists/Pulmonary Med Reason for Consult: resp failure EMERGENT Consult: No MD Notified: Yes Date Notified: 08/05/23 Time Notified: 08:38 Method of Notification: Verbal Consult: Nephrology Routine Consulting Provider: Mai Terry Reason for Consult: renal failure EMERGENT Consult: No Notified: Yes Date Notified: 08/05/23 Time Notified: 08:39 Method of Notification: Verbal 08/17/23 06:53 Consult: Vascular Surgery Routine Consulting Provider: Arnaud Estrella Reason for Consult: IVC Filter EMERGENT Consult: No Notified: Yes Date Notified: 08/17/23 Time Notified: 06:53 Method of Notification: Verbal 08/19/23 06:41 Consult: Infectious Disease Routine Consulting Provider: Imtiaz Montemayor Reason for Consult: Gram negative sepsis EMERGENT Consult: No Notified: Yes Date Notified: 08/19/23 Time Notified: 09:08 Method of Notification: Answering Service 08/20/23 11:25 Consult: Gastroenterology Routine Consulting Provider: [facility] Reason for Consult: worsening anemia with guiac + stool EMERGENT Consult: No Notified: Yes Date Notified: 08/20/23 Time Notified: 11:25 Method of Notification: Text 08/23/23 06:57 Consult: ENT Routine Consulting Provider: Brenton López Reason for Consult: Trach placement EMERGENT Consult: No Notified: Yes Date Notified: 08/23/23 Time Notified: 06:57 Method of Notification: Verbal Reason For Visit: NSTEMI Diagnosis Discharge Diagnosis (1) TRENA (acute kidney injury): Status: Acute Code(s): N17.9 - Acute kidney failure, unspecified Plan Patient is a 72-year-old gentleman admitted with shortness of breath was found to have elevated troponin consistent with acute non-STEMI treatment initiated per protocol admitted to the intensive care unit. Patient was found to be in acute respiratory failure resulting in the use of BiPAP. Patient has had a complicated stay with prolonged stay on the vent underwent PEG tube placement developed pulmonary embolism started on heparin did not tolerate statin had an IVC filter placed. Kidney function also did worsen resulting in initiation of hemodialysis. Had a PEG tube placed. 1. Acute non-STEMI ? Patient admitted to the intensive care unit managed per protocol with heparin, aspirin added statin therapy and beta-blockers with consultation placed to cardiology. Plan is for patient to undergo left heart catheterization ? 08/09/2023 cardiac catheterization demonstrated Normal left main coronary artery, First diagonal vessel with 90% long proximal stenosis, Left anterior descending artery with mild disease ,Nondominant left circumflex artery with first obtuse marginal branch with 70% stenosis, Totally occluded right coronary artery with [id number] collaterals ,Low normal left ventricular ejection fraction noted on echocardiogram with dilated right ventricle 2. Acute hypoxic respiratory failure ? Multifactorial including acute congestive heart failure, suspected PE as well as pneumonia patient placed on noninvasive ventilation Airvo. Consult placed to cardiothoracic physiotherapist notes and recommendations reviewed ? 08/09/2023.Patient seen remains on noninvasive ventilation on BiPAP. Given his significant oxygen requirement decision was made for patient to undergo CTA of the chest to evaluate possible clot burden. ? 08/10/2023; CTA of the chest demonstrated evidence of pulmonary embolism, bilateral pulmonary infiltrates as well as bilateral pleural effusion right greater than left. ? 08/11/2023; respiratory status continues to worsen plan is for patient to undergo elective intubation ? 08/12/2023; Patient was electively intubated the day prior due to worsening respiratory failure. Remained stable on the vent. Plan is for patient to undergo bronchoscopy ? 08/13/2023 remains stable on the vent ? 08/14/2023; patient remains stable on the vent. Has some bloody aspirate from his suction tubing H&H however remained stable. ? 08/29/2023; patient has remained on the vent for prolonged period of time plan is for patient to undergo tracheostomy. ? 08/30/2023;Patient seen remains on the vent and the plan is for patient to undergo trach placement later this afternoon ? 08/31/2023;Patient underwent tracheostomy with francesca flap by ENT on 08/30/2023. Plan is for patient to be assessed for possible discharge to LTAC 3. Acute VTE (RLE DVT and PE) -Patient underwent VQ scan which was nonconclusive lower extremity duplex demonstrated acute right lower extremity DVT. Patient is on heparin The estimated ejection fraction is 55 %. Unable to assess diastolic dysfunction. Moderately dilated right ventricle. Trivial mitral valve insufficiency. ? 08/10/2023 CTA demonstrated evidence of pulmonary embolism (There is evidence of a intraluminal filling defects in small branches in the right lower lobe suggestive of small pulmonary emboli. No big thrombus is seen.) Patient remains on apixaban plan is to hold and transition to heparin for patient to undergo ultrasound-guided thoracocentesis ? 08/14/2023 patient remains on heparin drip. ? 08/29/2023; heparin drip had to be discontinued after patient developed GI bleed subsequently underwent IVC filter placement on 08/18/2023 4. Acute congestive heart failure with preserved ejection fraction -Echo from 08/04/2023 demonstrated EF of 55%. Patient management strict input and output, fluid restriction as well as diuretic therapy with furosemide 5. Bilateral pleural effusions right greater than left with diffuse bilateral -Plan is for patient to undergo ultrasound-guided thoracocentesis. Patient systemic anticoagulation with apixaban to be held restarted on heparin ? 08/12/2023; Patient also underwent successful ultrasound-guided thoracentesis of the right hemithorax with 1.2 L of fluid removed. . 6. Pneumonia with Stenotrophomonas maltophilia CT of the chest demonstrated bilateral pulmonary infiltrates involving both upper and lower lobes. Patient remains on broad-spectrum antibiotic therapy ? 08/13/2023; sputum cultures grew Stenotrophomonas maltophilia. Patient antibiotic therapy subsequently adjusted ? 08/29/2023; patient grew Stenotrophomonas maltophilia in both blood and sputum which was found to be resistant to Levaquin which was initially sensitive. Antibiotic therapy subsequently adjusted to Rocephin and minocycline. Patient did develop hemoptysis underwent bronchoscopy on 08/12/2023 mild erythema was found throughout the tracheobronchial tree 7. Chronic kidney disease stage IIIb ? Monitoring kidney function ? 08/11/2023; kidney function continues to worsen following diagnostician as well as diuretic therapy nephrology on board ? 08/13/2023 patient kidney function did worsen necessitating initiation of hemodialysis by nephrology ? 08/29/2023; patient is on hemodialysis 8. Presence of solitary kidney ? 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 Hypokalemia ? Corrected per protocol repeat labs ordered for subsequent management 10. Hypertension - Blood pressure controlled, patient is on amlodipine continue also on chlorthalidone held 11. Acute cystitis ? Patient remains on broad-spectrum antibiotics 12. Upper GI bleed ? Patient underwent EGD on 08/25/2023 was found to have a tenosynovitis mucosa in the stomach. He also had a PEG tube successfully placed during the EGD Time spent in the patient's overall evaluation,decision-making process, review of diagnostic data, adjustment of management, discussion with other providers, nursing nursing and ancillary staff involved in patient's care documentation, 35 Minutes Medications at Discharge Home Medications chlorthalidone 25 mg tablet 25 mg PO DAILY BP 01/26/23 IV with Additives 45 mls/hr GT 08/31/23 Pantoprazole Sodium [Protonix] 40 mg 330 mls/hr IV Q12 08/31/23 acetaminophen 650 mg/20.3 mL oral solution 650 mg (20.3 mL) G-tube Q6H PRN PRN Pain 1-10 Or Fever >100.7 #0 mL 08/31/23 albuterol sulfate 2.5 mg/3 mL (0.083 %) solution for nebulization 2.5 mg (3 mL) inhalation Q2H PRN PRN Shortness Of Breath #0 mL 08/31/23 aspirin 81 mg chewable tablet 81 mg G-tube BREAKFAST #0 tabs 08/31/23 atorvastatin 40 mg tablet 40 mg G-tube QHS #0 tabs 08/31/23 insulin glargine-yfgn 100 unit/mL (3 mL) subcutaneous pen 26 unit (0.26 mL) subcut DAILY #0 mL 08/31/23 insulin lispro 100 unit/mL subcutaneous pen (Humalog KwikPen (U-100) Insulin) See Protocol subcut Q6 #0 mL 08/31/23 metoprolol tartrate 25 mg tablet 12.5 mg (1/2 x 25 mg) G-tube BID #0 tabs 08/31/23 midodrine 5 mg tablet 10 mg (2 x 5 mg) PO TIDCM #0 tabs 08/31/23 Physical Exam Narrative GENERAL: Sedated on the vent HEENT: Trach in place EYES; Anicteric, Normal Conjunctiva NECK; supple, normal thyroid, RESPIRATORY: Diminished to auscultation CARDIOVASCULAR: Regular S1 S2, GI: soft, normoactive bowel sounds, : No Renal angle tenderness; PEG tube in place EXTREMITIES: No edema, no clubbing, MUSCULOSKELETAL: no muscle wasting NEURO: Sedated on the vent SKIN: No Rash Weight / BMI Weight Weight: 101.9 kg Body Mass Index (BMI) 36.2 ABG / Lab / Microbiology Data 08/31/23 03:25 08/31/23 03:25 Laboratory: Laboratory Results - last 24 hr 08/30/23 04:15: Plt Count 136 L, Differential Comment SCANNED, Anisocytosis 2+, Microcytosis 1+, Macrocytosis 1+, B-Natriuretic Peptide 2680.8 H 08/30/23 10:57: POC Glucose 123 H 08/30/23 18:33: POC Glucose 118 H 08/31/23 00:31: POC Glucose 97 08/31/23 03:25: WBC 10.9, RBC 3.13 L, Hgb 8.2 L, Hct 27.1 L, MCV 86.6, MCH 26.2 L, MCHC 30.3 L, RDW Std Deviation 61.7 H, RDW Coeff of Raghavendra 20.6 H, Plt Count 138 L, MPV 11.2, Immature Gran % (Auto) 1.200 H, Neut % (Auto) 81.6 H, Lymph % (Auto) 6.4 L, [place] % (Auto) 8.5, Eos % (Auto) 1.7, Baso % (Auto) 0.6, Absolute Neuts (auto) 8.9 H, Absolute Lymphs (auto) 0.70 L, Nucleated RBC % 0.5, Sodium 132 L, Potassium 5.0, Chloride 100, Carbon Dioxide 20.0 L, Anion Gap 12, BUN 91 H, Creatinine 4.21 H, Estim Creat Clear Calc 17.99, Est GFR (MDRD) Af Amer 18 L, Est GFR (MDRD) Non-Af 15 L, BUN/Creatinine Ratio 21.6 H, Glucose 112 H, Calcium 8.2 L Microbiology: Microbiology 08/25/23 11:10 Blood Culture (Wb) - Left Hand Blood Culture - Final No growth in 5 days. 08/25/23 10:15 Blood Culture (Wb) - Pic Blood Culture - Final No growth in 5 days. 08/17/23 09:15 Sputum, Induced/Lukens Gram Stain - Final 08/17/23 09:15 Sputum, Induced/Lukens Respiratory Culture - Final Stenotrophomonas maltophilia 08/17/23 09:00 Blood Culture (Wb) - Pic Blood Culture - Final Stenotrophomonas maltophilia 08/17/23 09:00 Blood Culture (Wb) - Right Wrist Blood Culture - Final No growth in 5 days. 08/12/23 12:29 Wash - Right Middle Lobe Virus Culture - Final 08/20/23 10:15 Stool Stool Occult Blood (CRISTIAN) - Final Occult Blood Positive 08/11/23 15:14 Fluid - Pleural (Lung) Gram Stain - Final 08/11/23 15:14 Fluid - Pleural (Lung) Body Fluid Culture - Final Culture exhibits no growth. 08/11/23 15:14 Fluid - Pleural (Lung) Anaerobic Culture - Final No growth in 5 days. 08/12/23 12:29 Wash - Bronchial Gram Stain - Final 08/12/23 12:29 Wash - Bronchial Respiratory Culture - Final Stenotrophomonas maltophilia 08/11/23 09:59 Sputum, Induced/Lukens Gram Stain - Final 08/11/23 09:59 Sputum, Induced/Lukens Respiratory Culture - Final Stenotrophomonas maltophilia 08/12/23 10:49 Nasal Secretion SARS-CoV-2 Antigen (Rapid) - Final 08/04/23 00:00 Sputum, Expectorated/Coughed Gram Stain - Final 08/04/23 00:00 Sputum, Expectorated/Coughed Respiratory Culture - Final 08/03/23 21:57 Urine, Random Legionella Antigen - Final 08/03/23 21:57 Urine, Random Streptococcus pneumoniae Antigen (M - Final 08/03/23 18:30 Mucosa - Nose SARS-CoV-2, Influenza & RSV (PCR) - Final D/C Instructions Discharge Diet: - (TUBE FEED ) Discharge Activity: Return to Normal Activity Call your doctor if you observe: Fever of 101 or Higher, Shortness of breath, Fainting spells and Chest pain Meaningful Use Info Meaningful Use Meaningful Use Diagnoses (Choose all that apply): AMI AMI/Post PCI/Angioplasty Aspirin given w/in 24hrs of arrival?: Yes ASA at discharge?: Yes Antiplatelet Therapy at Discharge:: No Reason Antiplatelet Therapy not ordered:: NOT INDICATED Statins at discharge?: Yes Benson/ARB at discharge?: No Reason Benson/ARB not ordered:: Not indicated Beta Ame at discharge?: Yes Done w/ Acute HI measure.: Yes Ischemic Stroke Statin Dosing Therapy Reference: STATIN DOSE THERAPY REFERENCE: * Patients > 75 years receive moderate or high dose statin therapy. * Patients 75 years or YOUNGER should receive HIGH intensity statin dose unless contraindicated. You will be required to document reason for non-treatment if statin daily dose does not meet guidelines. HIGH DOSE STATIN THERAPY DAILY Atorvastatin > than or = to 40 mg Rosuvastatin > than or = to 20 mg Amlodipine + Atorvastatin > than or = to 2.5/40 mg Ezetimibe + Simvastatin 10/80 mg Simvastatin 80mg VTE Anticoag overlap given w/in hospital stay or rx'd at ms?: Yes Pt receive overlap for 5 days?: No Reason overlap not ordered, prescribed, or given for 5 days: Medical Contraindication Discharge Plan Admission Admit Date/Time: 08/03/23 16:41 Attending Provider: Radhika Ledezma Primary Care Provider: David Baptiste Consulting Providers: Arnaud Garcia; Skyler Rowland; Preston Garcia; Jose Gonzalez; Jovanny Munoz; Ritchie Fernandes; Chris Alcala; Bronwyn Rhoades; Elder Real; Jeri Carson; Louis Lester; Minor Smith; Bjorn Cornejo; Nicolas Rico; Toby Trinidad; Robin Hooper; Mai Terry; Rito Lopez; Ke Jim; Arnaud Estrella; Imtiaz Montemayor; Sowmya Pablo; Brenton López Discharge Orders/Prescriptions Prescriptions: New atorvastatin 40 mg Tablet 40 mg G-tube QHS Qty: 0 0RF albuterol sulfate 2.5 mg /3 mL (0.083 %) Solution For Nebulization 2.5 mg inhalation Q2H PRN PRN (Reason: Shortness Of Breath) Qty: 0 0RF aspirin 81 mg Tablet,Chewable 81 mg G-tube BREAKFAST Qty: 0 0RF insulin lispro [Humalog KwikPen Insulin] 100 unit/mL Insulin Pen See Protocol subcut Q6 Qty: 0 0RF Protocol: 3. Sliding Scale Insulin Med Dosing Condition: 150-189 mg/dl = 1 unit Condition: 190-229 mg/dl = 2 units Condition: 230-269 mg/dl = 3 units Condition: 270-309 mg/dl = 4 units Condition: 310-349 mg/dl = 5 units Condition: 350-399 mg/dl = 6 units Condition: 400-449 mg/dl = 7 units Condition: Greater than 449 call physician Protocol Text: - Use for Total Daily Dose of Insulin 37-55 units - Obsese, infected, or steroid patients MEDIUM DOSING ALGORITHIM acetaminophen 650 mg/20.3 mL Solution 650 mg G-tube Q6H PRN PRN (Reason: Pain 1-10 Or Fever >100.7) Qty: 0 0RF insulin glargine-yfgn 100 unit/mL (3 mL) Insulin Pen 26 unit subcut DAILY Qty: 0 0RF midodrine 5 mg Tablet 10 mg PO TIDCM Qty: 0 0RF metoprolol tartrate 25 mg Tablet 12.5 mg G-tube BID Qty: 0 0RF IV with Additives Nepro Tube Feed [Nepro Carb Steady] 1000 ML 45 mls/hr GT Ordered By: Ke Jim MD Last Taken: 08/31/23 06:30 25 mls/hr Pantoprazole Sodium [Protonix] 40 MG 0.9% Normal Saline (100mL MB+) 100 ML 330 mls/hr IV Q12 Ordered By: Ke Jim MD Last Taken: 08/31/23 08:29 330 mls/hr Discontinued amlodipine 5 mg tablet 5 mg PO DAILY Patient Comments: PT STATES FOR THE PAST 2 DAYS HES TAKEN 5MG IN THE MORNING AND 5MG AT NIGHT. No Action chlorthalidone 25 mg tablet 25 mg PO DAILY Patient Comments: take 1 tablet by mouth every morning with food Referrals / Follow Up: David Baptiste MD [Primary Care Provider] - Disposition Disposition (needs filled in before D/C Order can be placed): [employer] Acute Care Charges/Coding Visit Charges Inpatient E&M: 09533 Disch Hosp >30min
[2023-08-31] MEDS: Norepinephrine 8 MG in 0.9% Normal Saline (250mL Bag) 242 ML 18.8 MG CONT INF (11:01)
[2023-08-31 11:15] LABS: Bedside Glucose 105 mg/dL (74-106)
--- NOTE | 2023-08-31 12:06 | NUR.TO.PHY ---
pt clotted system during crrt attempt yesterday evening. Nephrology asked this RN to assess temp dialysis catheter today & perform HD if able. Not able to pull blood from either lumen today. Unclear if pt will have temp line replacement or px of tdc. Temp line left in place in case another temp line will px in lieu of tdc.
--- NOTE | 2023-08-31 12:52 | EX.PCM.CON.S ---
Assessment & Plan Assessment/Plan (1) TRENA (acute kidney injury): PLAN: I have been consulted in conjunction with Dr. Cade. He will independently evaluate this patient. Dr. Cade will plan to place a left possible right chest tunneled dialysis catheter tomorrow. I have explained the risks, benefits and procedure details to the patient's . She has had the opportunity to ask and have questions answered. Patient is unable to consent for himself and has been giving permission/consent for all his procedures. Patient's , Duc, agrees with the proposed procedure. She is visiting her currently and will sign the consent. Thank you for allowing us to participate in this patient's care. HPI Consult Data Date of Consult: 08/31/23 HPI Narrative Reason for Consultation: Problem with dialysis access HPI Narrative: DINH SIN, is a 72 M I have been consulted on in conjunction with Dr. Cade. Patient is s/p trach placement on 08/29 and currently on ventilator support and sedated. Patient was not able to provide any history. Patient was not able to follow commands. Patient currently has a right IJ temporary catheter in place. He had been having CRRT dialysis treatment. Per nursing staff, patient was only able to partly receive treatment overnight as the catheter had clotted off. An attempt was made to dialyze patient this morning, however was unsuccessful. Patient's renal function has not been able to recover at this point. Patient is apparently being discharged to an LTAC. Patient remains on Levophed at this time. [facility] Medical History Bladder disease Cancer Former smoker Prostate disease Wears glasses Home Medications ?Medication ?Instructions ?Recorded ?Last Taken ?Type chlorthalidone 25 mg tablet 25 mg PO DAILY BP 01/26/23 08/03/23 History IV with Additives 45 mls/hr GT 08/31/23 Unknown Rx Pantoprazole Sodium [Protonix] 40 330 mls/hr IV Q12 08/31/23 Unknown Rx mg acetaminophen 650 mg/20.3 mL oral 650 mg (20.3 mL) G-tube Q6H PRN 08/31/23 Unknown Rx solution PRN Pain 1-10 Or Fever >100.7 #0 mL albuterol sulfate 2.5 mg/3 mL 2.5 mg (3 mL) inhalation Q2H PRN 08/31/23 Unknown Rx (0.083 %) solution for nebulization PRN Shortness Of Breath #0 mL aspirin 81 mg chewable tablet 81 mg G-tube BREAKFAST #0 tabs 08/31/23 Unknown Rx atorvastatin 40 mg tablet 40 mg G-tube QHS #0 tabs 08/31/23 Unknown Rx insulin glargine-yfgn 100 unit/mL 26 unit (0.26 mL) subcut DAILY #0 08/31/23 Unknown Rx (3 mL) subcutaneous pen mL insulin lispro 100 unit/mL See Protocol subcut Q6 #0 mL 08/31/23 Unknown Rx subcutaneous pen (Humalog KwikPen (U-100) Insulin) metoprolol tartrate 25 mg tablet 12.5 mg (1/2 x 25 mg) G-tube BID 08/31/23 Unknown Rx #0 tabs midodrine 5 mg tablet 10 mg (2 x 5 mg) PO TIDCM #0 tabs 08/31/23 Unknown Rx Allergy/AdvReac Type Severity Reaction Status Date / Time No Known Allergies Allergy Verified 08/03/23 13:48 Surgical History History of cataract extraction with lens replacement (~2015) History of hernia repair (~1975) History of surgery of head (~1991) History of toe surgery History of transurethral resection of bladder tumor (TURBT) Social History Smoking Status: Former smoker ROS Review of Systems ROS Unobtainable: due to endotracheal tube, due to mental status and other Details: Patient sedated Physical Exam Const General Appearance: patient mechanically ventilated Orientation / Consciousness: comatose HEENT normocephalic and head/scalp atraumatic HEENT Narrative: Neck supple Neck Narrative: Right temporary IJ catheter in place in the neck Trach in place with ventilation support General: tracheostomy present Resp Effort and Inspection: mechanically ventilated Auscultation: crackles and wheezes Cardio Rate: tachycardic GI GI Narrative: PEG tube present Inspection: central obesity Auscultation: hypoactive bowel sounds no CVA tenderness Back/Spine no CVA tenderness Extremity Extremity Narrative: Right planter mottling including the toes Left planter with minimal mottling No mottling noted on the lower legs General Extremity: edema bilateral lower extremity Skin General Skin Exam: mottling Neuro Sensorium / Orientation: sedated on vent Psych Appearance: appropriate Lab / Micro Data 08/31/23 03:25 08/31/23 03:25 Labs: Laboratory Results - last 24 hr 08/30/23 18:33: POC Glucose 118 H 08/31/23 00:31: POC Glucose 97 08/31/23 03:25: WBC 10.9, RBC 3.13 L, Hgb 8.2 L, Hct 27.1 L, MCV 86.6, MCH 26.2 L, MCHC 30.3 L, RDW Std Deviation 61.7 H, RDW Coeff of Raghavendra 20.6 H, Plt Count 138 L, MPV 11.2, Immature Gran % (Auto) 1.200 H, Neut % (Auto) 81.6 H, Lymph % (Auto) 6.4 L, [place] % (Auto) 8.5, Eos % (Auto) 1.7, Baso % (Auto) 0.6, Absolute Neuts (auto) 8.9 H, Absolute Lymphs (auto) 0.70 L, Nucleated RBC % 0.5, Sodium 132 L, Potassium 5.0, Chloride 100, Carbon Dioxide 20.0 L, Anion Gap 12, BUN 91 H, Creatinine 4.21 H, Estim Creat Clear Calc 17.99, Est GFR (MDRD) Af Amer 18 L, Est GFR (MDRD) Non-Af 15 L, BUN/Creatinine Ratio 21.6 H, Glucose 112 H, Calcium 8.2 L 08/31/23 10:58: POC Glucose 105 Micro: Microbiology 08/25/23 11:10 Blood Culture (Wb) - Left Hand Blood Culture - Final No growth in 5 days. 08/25/23 10:15 Blood Culture (Wb) - Pic Blood Culture - Final No growth in 5 days. Charges/Coding Visit Charges Office Visits / Consults: [id number] IP Consult L3
[2023-08-31] MEDS: Norepinephrine 8 MG in 0.9% Normal Saline (250mL Bag) 242 ML 46.9 MG CONT INF (16:26)
[2023-08-31 16:40] LABS: Bedside Glucose 100 mg/dL (74-106)
[2023-08-31 16:50] LABS: Bedside Glucose 107 mg/dL (74-106)
[2023-08-31] MEDS: Atorvastatin Calcium 40 MG Tablet GT (20:40)
[2023-08-31] MEDS: Norepinephrine 8 MG in 0.9% Normal Saline (250mL Bag) 242 ML 50.6 MG CONT INF (22:00)
[2023-09-01] VITALS (35 sets, daily range): BP systolic 48–120; BP diastolic 13–66; PULSE 49–103; RESP 16–28; TEMP 36.1–36.3; O2SAT 91–96; BMI 38.1
[2023-09-01] MEDS: Propofol 10MG/Ml 1,000 MG/100 ML Bottle 9.2 MG CONT INF (00:24)
[2023-09-01 01:44] LABS: Bedside Glucose 101 mg/dL (74-106)
[2023-09-01] MEDS: Norepinephrine 8 MG in 0.9% Normal Saline (250mL Bag) 242 ML 50.6 MG CONT INF (03:00)
[2023-09-01] MEDS: Menthol/Lanolin/Calamine/Znox 113 GM Tube 1 APPLIC TOPICAL ×2 (05:55→12:52)
[2023-09-01] MEDS: TITRATION PARAMETER CHANGE 1 EACH IV (05:58)
[2023-09-01 06:15] LABS: Bedside Glucose 97 mg/dL (74-106)
[2023-09-01] MEDS: Albuterol 2.5 MG/3 ML VIAL.NEB. INHALATION ×2 (06:42→12:12)
[2023-09-01] MEDS: fentaNYL drip 100 ML 10 MCG CONT INF (06:44)
--- NOTE | 2023-09-01 07:05 | PN.HOSP_ITS ---
Reason for Visit Reason for Visit: Diagnoses Non-ST elevation (NSTEMI) myocardial infarction (08/03/23) Other pulmonary embolism without acute cor pulmonale (08/03/23) Acute embolism and thrombosis of unspecified deep veins of unspecified lower extremity (08/03/23) Pneumonia, unspecified organism (08/03/23) Pleural effusion, not elsewhere classified (08/03/23) Acute respiratory failure with hypoxia (08/03/23) Acute kidney failure, unspecified (08/03/23) Chronic kidney disease, stage 3b (08/03/23) Bacteremia (08/03/23) Subjective Subjective Decision to discharge patient to LTAC was placed on hold after patient dialysis catheter malfunction. Plan is for patient to undergo dialysis catheter replacement with subsequent dialysis prior to patient being discharged to the LTAC Objective Data Objective Data Vital Signs: Vital Signs Temp Pulse Resp BP Pulse Ox O2 Del Method O2 Flow Rate 97.3 F L 98 22 H 107/58 L 94 Mechanical Ventilator 60 09/01/23 00:00 09/01/23 06:42 09/01/23 06:42 09/01/23 06:03 09/01/23 06:42 09/01/23 06:03 08/25/23 19:00 FiO2 50 09/01/23 06:42 Oxygen Flow Rate (L/min) 60 Oxygen Delivery Method Mechanical Ventilator Weight: 107.2 kg Body Mass Index (BMI) 38.1 Intake & Output: Intake and Output for Last 24 Hours 08/30/23 08/31/23 09/01/23 23:59 23:59 23:59 Intake Total 2094.74 / 2305.32 2040.71 / 2110.51 665.30 / 665.30 Output Total 620 / 719 294 / 294 Balance 1474.74 / 1586.32 1746.71 / 1816.51 665.30 / 665.30 Lab / Micro Data 08/31/23 03:25 08/31/23 03:25 Labs: Laboratory Results - last 24 hr 08/31/23 05:37: POC Glucose 100 08/31/23 10:58: POC Glucose 105 08/31/23 16:24: POC Glucose 107 H 09/01/23 01:25: POC Glucose 101 09/01/23 05:54: POC Glucose 97 Micro: Microbiology 08/25/23 11:10 Blood Culture (Wb) - Left Hand Blood Culture - Final No growth in 5 days. 08/25/23 10:15 Blood Culture (Wb) - Pic Blood Culture - Final No growth in 5 days. 08/17/23 09:15 Sputum, Induced/Lukens Gram Stain - Final 08/17/23 09:15 Sputum, Induced/Lukens Respiratory Culture - Final Stenotrophomonas maltophilia 08/17/23 09:00 Blood Culture (Wb) - Pic Blood Culture - Final Stenotrophomonas maltophilia 08/17/23 09:00 Blood Culture (Wb) - Right Wrist Blood Culture - Final No growth in 5 days. 08/12/23 12:29 Wash - Right Middle Lobe Virus Culture - Final 08/20/23 10:15 Stool Stool Occult Blood (CRISTIAN) - Final Occult Blood Positive 08/11/23 15:14 Fluid - Pleural (Lung) Gram Stain - Final 08/11/23 15:14 Fluid - Pleural (Lung) Body Fluid Culture - Final Culture exhibits no growth. 08/11/23 15:14 Fluid - Pleural (Lung) Anaerobic Culture - Final No growth in 5 days. 08/12/23 12:29 Wash - Bronchial Gram Stain - Final 08/12/23 12:29 Wash - Bronchial Respiratory Culture - Final Stenotrophomonas maltophilia 08/11/23 09:59 Sputum, Induced/Lukens Gram Stain - Final 08/11/23 09:59 Sputum, Induced/Lukens Respiratory Culture - Final Stenotrophomonas maltophilia 08/12/23 10:49 Nasal Secretion SARS-CoV-2 Antigen (Rapid) - Final 08/04/23 00:00 Sputum, Expectorated/Coughed Gram Stain - Final 08/04/23 00:00 Sputum, Expectorated/Coughed Respiratory Culture - Final 08/03/23 21:57 Urine, Random Legionella Antigen - Final 08/03/23 21:57 Urine, Random Streptococcus pneumoniae Antigen (M - Final 08/03/23 18:30 Mucosa - Nose SARS-CoV-2, Influenza & RSV (PCR) - Final Physical Exam Narrative GENERAL: Sedated on the vent HEENT: Trach in place EYES; Anicteric, Normal Conjunctiva NECK; supple, normal thyroid, RESPIRATORY: Diminished to auscultation CARDIOVASCULAR: Regular S1 S2, GI: soft, normoactive bowel sounds, : No Renal angle tenderness; PEG tube in place EXTREMITIES: No edema, no clubbing, MUSCULOSKELETAL: no muscle wasting NEURO: Sedated on the vent SKIN: No Rash Assessment & Plan Assessment/Plan (1) TRENA (acute kidney injury): PLAN: Plan Patient is a 72-year-old gentleman admitted with shortness of breath was found to have elevated troponin consistent with acute non-STEMI treatment initiated per protocol admitted to the intensive care unit. Patient was found to be in acute respiratory failure resulting in the use of BiPAP. Patient has had a complicated stay with prolonged stay on the vent underwent PEG tube placement developed pulmonary embolism started on heparin did not tolerate statin had an IVC filter placed. Kidney function also did worsen resulting in initiation of hemodialysis. Had a PEG tube placed. 1. Acute non-STEMI ? Patient admitted to the intensive care unit managed per protocol with heparin, aspirin added statin therapy and beta-blockers with consultation placed to cardiology. Plan is for patient to undergo left heart catheterization ? 08/09/2023 cardiac catheterization demonstrated Normal left main coronary artery, First diagonal vessel with 90% long proximal stenosis, Left anterior descending artery with mild disease ,Nondominant left circumflex artery with first obtuse marginal branch with 70% stenosis, Totally occluded right coronary artery with [id number] collaterals ,Low normal left ventricular ejection fraction noted on echocardiogram with dilated right ventricle 2. Acute hypoxic respiratory failure ? Multifactorial including acute congestive heart failure, suspected PE as well as pneumonia patient placed on noninvasive ventilation Airvo. Consult placed to simulation engineer notes and recommendations reviewed ? 08/09/2023.Patient seen remains on noninvasive ventilation on BiPAP. Given his significant oxygen requirement decision was made for patient to undergo CTA of the chest to evaluate possible clot burden. ? 08/10/2023; CTA of the chest demonstrated evidence of pulmonary embolism, bilateral pulmonary infiltrates as well as bilateral pleural effusion right greater than left. ? 08/11/2023; respiratory status continues to worsen plan is for patient to undergo elective intubation ? 08/12/2023; Patient was electively intubated the day prior due to worsening respiratory failure. Remained stable on the vent. Plan is for patient to undergo bronchoscopy ? 08/13/2023 remains stable on the vent ? 08/14/2023; patient remains stable on the vent. Has some bloody aspirate from his suction tubing H&H however remained stable. ? 08/29/2023; patient has remained on the vent for prolonged period of time plan is for patient to undergo tracheostomy. ? 08/30/2023;Patient seen remains on the vent and the plan is for patient to undergo trach placement later this afternoon ? 08/31/2023;Patient underwent tracheostomy with francesca flap by ENT on 08/30/2023. Plan is for patient to be assessed for possible discharge to LTAC 3. Acute VTE (RLE DVT and PE) -Patient underwent VQ scan which was nonconclusive lower extremity duplex demonstrated acute right lower extremity DVT. Patient is on heparin The estimated ejection fraction is 55 %. Unable to assess diastolic dysfunction. Moderately dilated right ventricle. Trivial mitral valve insufficiency. ? 08/10/2023 CTA demonstrated evidence of pulmonary embolism (There is evidence of a intraluminal filling defects in small branches in the right lower lobe suggestive of small pulmonary emboli. No big thrombus is seen.) Patient remains on apixaban plan is to hold and transition to heparin for patient to undergo ultrasound-guided thoracocentesis ? 08/14/2023 patient remains on heparin drip. ? 08/29/2023; heparin drip had to be discontinued after patient developed GI bleed subsequently underwent IVC filter placement on 08/18/2023 4. Acute congestive heart failure with preserved ejection fraction -Echo from 08/04/2023 demonstrated EF of 55%. Patient management strict input and output, fluid restriction as well as diuretic therapy with furosemide 5. Bilateral pleural effusions right greater than left with diffuse bilateral -Plan is for patient to undergo ultrasound-guided thoracocentesis. Patient systemic anticoagulation with apixaban to be held restarted on heparin ? 08/12/2023; Patient also underwent successful ultrasound-guided thoracentesis of the right hemithorax with 1.2 L of fluid removed. . 6. Pneumonia with Stenotrophomonas maltophilia CT of the chest demonstrated bilateral pulmonary infiltrates involving both upper and lower lobes. Patient remains on broad-spectrum antibiotic therapy ? 08/13/2023; sputum cultures grew Stenotrophomonas maltophilia. Patient antibiotic therapy subsequently adjusted ? 08/29/2023; patient grew Stenotrophomonas maltophilia in both blood and sputum which was found to be resistant to Levaquin which was initially sensitive. Antibiotic therapy subsequently adjusted to Rocephin and minocycline. Patient did develop hemoptysis underwent bronchoscopy on 08/12/2023 mild erythema was found throughout the tracheobronchial tree ? 09/01/2023; patient antibiotic therapy discontinued on 08/30/2023 7. Chronic kidney disease stage IIIb ? Monitoring kidney function ? 08/11/2023; kidney function continues to worsen following diagnostician as well as diuretic therapy nephrology on board ? 08/13/2023 patient kidney function did worsen necessitating initiation of hemodialysis by nephrology ? 08/29/2023; patient is on hemodialysis ? 09/01/2023;patient's dialysis catheter malfunctioned the day prior. . Plan is for patient to undergo dialysis catheter replacement with subsequent dialysis prior to patient being discharged to the LTAC 8. Presence of solitary kidney ? 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 Hypokalemia ? Corrected per protocol repeat labs ordered for subsequent management 10. Hypertension - Blood pressure controlled, patient is on amlodipine continue also on chlorthalidone held 11. Acute cystitis ? Patient remains on broad-spectrum antibiotics 12. Upper GI bleed ? Patient underwent EGD on 08/25/2023 was found to have a tenosynovitis mucosa in the stomach. He also had a PEG tube successfully placed during the EGD Time spent in the patient's overall evaluation,decision-making process, review of diagnostic data, adjustment of management, discussion with other providers, nursing nursing and ancillary staff involved in patient's care documentation, 35 Minutes Charges/Coding Visit Charges Inpatient E&M: 10208 Subs Hosp L2
[2023-09-01] MEDS: CHLORHEXIDINE GLUC 2% CLOTH 1 EACH TOWELETTE TOPICAL (07:41)
[2023-09-01] MEDS: Chlorhexidine 15 ML PO (07:43)
--- NOTE | 2023-09-01 07:55 | PCM.PN.SRG ---
Subjective Subjective Patient evaluated resting comfortably in bed on ventilation and sedation. His has agreed to proceed with the proposed tunneled catheter. Objective Data Objective Data Vital Signs: Vital Signs Temp Pulse Resp BP Pulse Ox O2 Del Method O2 Flow Rate 97.3 F L 101 H 21 H 113/55 L 92 Mechanical Ventilator 60 09/01/23 00:00 09/01/23 07:00 09/01/23 07:00 09/01/23 07:00 09/01/23 07:00 09/01/23 07:00 08/25/23 19:00 FiO2 50 09/01/23 07:00 Oxygen Flow Rate (L/min) 60 Oxygen Delivery Method Mechanical Ventilator Weight: 236 lb 5.369 oz Body Mass Index (BMI) 38.1 Intake & Output: Intake and Output for Last 24 Hours 08/30/23 08/31/23 09/01/23 23:59 23:59 23:59 Intake Total 2094.74 / 2305.32 2040.71 / 2110.51 725.64 / 725.64 Output Total 620 / 719 294 / 294 Balance 1474.74 / 1586.32 1746.71 / 1816.51 725.64 / 725.64 Lab / Micro Data 08/31/23 03:25 08/31/23 03:25 Labs: Laboratory Results - last 24 hr 08/31/23 05:37: POC Glucose 100 08/31/23 10:58: POC Glucose 105 08/31/23 16:24: POC Glucose 107 H 09/01/23 01:25: POC Glucose 101 09/01/23 05:54: POC Glucose 97 Micro: Microbiology 08/25/23 11:10 Blood Culture (Wb) - Left Hand Blood Culture - Final No growth in 5 days. 08/25/23 10:15 Blood Culture (Wb) - Pic Blood Culture - Final No growth in 5 days. 08/17/23 09:15 Sputum, Induced/Lukens Gram Stain - Final 08/17/23 09:15 Sputum, Induced/Lukens Respiratory Culture - Final Stenotrophomonas maltophilia 08/17/23 09:00 Blood Culture (Wb) - Pic Blood Culture - Final Stenotrophomonas maltophilia 08/17/23 09:00 Blood Culture (Wb) - Right Wrist Blood Culture - Final No growth in 5 days. 08/12/23 12:29 Wash - Right Middle Lobe Virus Culture - Final 08/20/23 10:15 Stool Stool Occult Blood (CRISTIAN) - Final Occult Blood Positive 08/11/23 15:14 Fluid - Pleural (Lung) Gram Stain - Final 08/11/23 15:14 Fluid - Pleural (Lung) Body Fluid Culture - Final Culture exhibits no growth. 08/11/23 15:14 Fluid - Pleural (Lung) Anaerobic Culture - Final No growth in 5 days. 08/12/23 12:29 Wash - Bronchial Gram Stain - Final 08/12/23 12:29 Wash - Bronchial Respiratory Culture - Final Stenotrophomonas maltophilia 08/11/23 09:59 Sputum, Induced/Lukens Gram Stain - Final 08/11/23 09:59 Sputum, Induced/Lukens Respiratory Culture - Final Stenotrophomonas maltophilia 08/12/23 10:49 Nasal Secretion SARS-CoV-2 Antigen (Rapid) - Final 08/04/23 00:00 Sputum, Expectorated/Coughed Gram Stain - Final 08/04/23 00:00 Sputum, Expectorated/Coughed Respiratory Culture - Final 08/03/23 21:57 Urine, Random Legionella Antigen - Final 08/03/23 21:57 Urine, Random Streptococcus pneumoniae Antigen (M - Final 08/03/23 18:30 Mucosa - Nose SARS-CoV-2, Influenza & RSV (PCR) - Final Assessment & Plan Assessment/Plan (1) TRENA (acute kidney injury): PLAN: I am evaluating this patient in conjunction with Dr. Cade Keep NPO and no tube feeds for tunneled dialysis catheter procedure today Please remove right neck IJ temporary catheter Plan for left possible right chest catheter by Dr. Cade today around :09/04 Charges/Coding Visit Charges Inpatient E&M: 73198 Subs Hosp L1 (no charge; procedure today)
[2023-09-01] MEDS: Insulin Glargine-YFGN 100 UNIT/ML Pen 26 UNIT SC (08:02)
[2023-09-01] MEDS: Pantoprazole Sodium 40 MG in 0.9% Normal Saline (100mL MB+) 100 ML 330 MG IV (08:04)
--- NOTE | 2023-09-01 09:11 | NURSING ---
levophed on JUN shows infused, however is still currently running bag not fully infused.
[2023-09-01] MEDS: Norepinephrine 8 MG in 0.9% Normal Saline (250mL Bag) 242 ML 46.9 MG CONT INF (09:15)
[2023-09-01] MEDS: Propofol 10MG/Ml 1,000 MG/100 ML Bottle 9.6 MG CONT INF (09:16)
[2023-09-01 09:34] LABS: Absolute Lymphocyte Count 0.75 X10^3/uL (0.83-4.51); Absolute Neutrophil Count 8.7 X10^3/uL (2.0-7.7); Basophil# 0.07 X10^3/uL; Basophil% 0.6 % (0-1); Eosinophil# 0.09 X10^3/uL; Eosinophils% 0.8 % (0-5); Hematocrit 27.1 % (40-54); Lymphocyte # 0.75 X10^3/ul (0.83-4.51); Lymphocyte % 6.6 % (19-41); Mean Corp Hgb Conc 29.5 g/dL (32-36); Mean Corpuscular Hgb 25.7 pg (27.0-32.0); Mean Corpuscular Volume 87.1 fL (80-94); Mean Platelet Vol. 11.6 fl (6.2-12.0); Monocyte# 1.32 X10^3/uL; Monocyte% 11.6 % (0-10); NRBC Flagged by Analyzer 1.9 % (0-5); Neutrophil # 8.71 X10^3/uL (2.7-7.7); Neutrophil % 76.9 % (47-70); POSITIVE MORPHOLOGY YES; Platelet Count 232 K/mm3 (150-450); RBC Distribution Width CV 21.1 % (11.6-14.6); RBC Distribution Width SD 63.8 fl (35.1-43.9); Red Blood Count 3.11 M/mm3 (4.6-6.2); White Blood Count 11.3 K/mm3 (4.4-11.0)
[2023-09-01 09:41] LABS: Differential Indicated SCAN CRITERIA MET
[2023-09-01 10:24] LABS: ALB/GLOB Ratio 0.4 RATIO (0.9-2.4); AST(SGOT) 1561 U/L (15-37); Alanine Aminotransfer ALT/SGPT 985 U/L (16-61); Albumin, Serum 1.6 g/dL (3.2-5.0); Alkaline Phosphatase 127 U/L (45-117); Anion Gap 16 (5-15); BUN 99 mg/dL (7-18); BUN/Creat Ratio 17.9 RATIO (10-20); Calcium,Total 8.4 mg/dL (8.5-10.1); Chloride 100 mmol/L (98-107); Creatinine, Serum 5.54 mg/dL (0.70-1.30); EST Glomerular Filtration Rate 11 mL/min (>60); Est Glom Filt Rate - Afr Amer 13 mL/min (>60); Estimated Creatinine Clearance 14.04 ml/min; Globulin 3.8 g/dL (2.2-4.2); Glucose 119 mg/dL (74-106); Magnesium 2.6 mg/dL (1.6-2.6); Phosphorus 9.6 mg/dL (2.5-4.9); Potassium 5.7 mmol/L (3.5-5.1); Protein, Total 5.4 g/dL (6.4-8.2); Sodium Level 130 mmol/L (136-145)
--- NOTE | 2023-09-01 10:40 | PN.CC_ITS ---
Assessment & Plan Assessment/Plan (1) Acute hypoxic respiratory failure: (2) Pleural effusion, right: (3) TRENA (acute kidney injury): PLAN: Plan RECOMMENDATIONS: 1. Continue assist-control mode mechanical ventilation. Wean FiO2 and PEEP for saturations greater than 90%. 2. Continue current sedation regimen. 3. Dialysis support per nephrology recommendations. 4. Proceed with tunneled dialysis catheter placement today. 5. Continue Levophed to maintain a mean arterial pressure at or above 65 mmHg. 6. Continue appropriate GI prophylaxis. 7. Awaiting LTACH disposition. The patient will be medically clear once tunneled dialysis catheter is placed. IMPRESSIONS: 1. Acute hypoxemic respiratory failure Initially, the patient's respiratory decompensation was felt to be a consequence of decompensated heart failure with preserved ejection fraction in the setting of an NSTEMI. However, underlying infection related to stenotrophomonas seems more likely. The patient was also diagnosed with a right lower extremity DVT and small nonocclusive right lower lobe PE. He was subsequently initiated on a weight-based heparin infusion. Ultimately, the patient continued to decompensate from a respiratory perspective and required intubation. Upon intubation, the patient was noted to have a significant amount of bleeding from his endotracheal tube, raising the suspicion for diffuse alveolar hemorrhage. Nevertheless, subsequent bronchoscopy was not consistent with DAH. The patient underwent thoracentesis as well from the right hemithorax which appeared to be transudative in nature. Cardiac catheterization was completed, for which medical therapy was recommended. The patient continues to have a tenuous respiratory status on the ventilator, requiring high FiO2. Over concerns that the ongoing bloody secretions could be contributing to his persistent high oxygenation requirement, an IVC filter was placed on August 17 in order to facilitate discontinuation of the weight-based heparin infusion. The patient has now completed a 10-day course of ceftaz/Henry per ID recommendations, due to a multidrug-resistant stenotrophomonas. The patient is status post tracheostomy and PEG tube placement, due to his failure to be weaned from invasive mechanical ventilatory support. Plan to continue nutritional support via tube feeding. 2. NSTEMI/acute decompensated heart failure with preserved ejection fraction Management per cardiology. 3. Acute on chronic kidney disease Nephrology is following. The patient's worsening renal insufficiency is likely multifactorial and related to prerenal etiology coupled with possible contrast nephropathy from catheterization and CTA chest. Continue ongoing dialysis support per nephrology recommendations. TIME: 31 minutes, independent of procedures, was spent addressing the patient's acute hypoxemic respiratory failure, NSTEMI, acute decompensated heart failure with preserved ejection fraction, stenotrophomonas pneumonia, acute on chronic kidney disease, review of all data and collaboration with care team. Subjective Subjective The patient was seen and examined at the bedside this morning. Events from the last 24 hours have been reviewed. The patient is awaiting tunneled dialysis catheter placement later today to facilitate disposition to LTACH. The patient major overall net positive from a volume perspective. Hemoglobin and platelet count are stable. Objective Data Objective Data The patient's most recent lab work, culture data and imaging studies have all been personally reviewed. Surface echocardiogram demonstrated normal LV size and function with an ejection fraction of 55%. Doppler study was positive for right-sided DVT. Sputum and blood cultures were positive for stenotrophomonas. Vital Signs: Vital Signs Temp Pulse Resp BP Pulse Ox O2 Del Method O2 Flow Rate 97.0 F L 103 H 21 H 100/58 L 93 Mechanical Ventilator 60 09/01/23 08:00 09/01/23 08:00 09/01/23 08:00 09/01/23 09:15 09/01/23 08:00 09/01/23 09:00 08/25/23 19:00 FiO2 50 09/01/23 09:00 Oxygen Flow Rate (L/min) 60 Oxygen Delivery Method Mechanical Ventilator Weight: 236 lb 5.369 oz Body Mass Index (BMI) 38.1 Intake & Output: Intake and Output for Last 24 Hours 08/30/23 08/31/23 09/01/23 23:59 23:59 23:59 Intake Total 2094.74 / 2305.32 2040.71 / 2110.51 957.24 / 957.24 Output Total 620 / 719 294 / 294 20 / Balance 1474.74 / 1586.32 1746.71 / 1816.51 937.24 / 937.24 Lab / Micro Data Attestation: I reviewed the patient's lab results. 09/01/23 09:20 09/01/23 09:20 Labs: Laboratory Results - last 24 hr 08/31/23 05:37: POC Glucose 100 08/31/23 10:58: POC Glucose 105 08/31/23 16:24: POC Glucose 107 H 09/01/23 01:25: POC Glucose 101 05/23/24 05:54: POC Glucose 97 09/01/23 09:20: WBC 11.3 H, RBC 3.11 L, Hgb 8.0 L, Hct 27.1 L, MCV 87.1, MCH 25.7 L, MCHC 29.5 L, RDW Std Deviation 63.8 H, RDW Coeff of Raghavendra 21.1 H, Plt Count 232, MPV 11.6, Immature Gran % (Auto) 3.500 H, Neut % (Auto) 76.9 H, Lymph % (Auto) 6.6 L, Glynn % (Auto) 11.6 H, Eos % (Auto) 0.8, Baso % (Auto) 0.6, A bsolute Neuts (auto) 8.7 H, Absolute Lymphs (auto) 0.75 L, Nucleated RBC % 1.9, Sodium 130 L, Potassium 5.7 H, Chloride 100, Carbon Dioxide 14.0 L, Anion Gap 16 H, BUN 99 H, Creatinine 5.54 H, Estim Creat Clear Calc 14.04, Est GFR (MDRD) Af Amer 13 L, Est GFR (MDRD) Non-Af 11 L, BUN/Creatinine Ratio 17.9, Glucose 119 H, Calcium 8.4 L, Phosphorus 9.6 H*, Magnesium 2.6, Total Bilirubin 0.70, AST 1561 H, ALT 985 H, Alkaline Phosphatase 127 H, Total Protein 5.4 L, Albumin 1.6 L, Globulin 3.8, Albumin/Globulin Ratio 0.4 L Micro: Microbiology 08/25/23 11:10 Blood Culture (Wb) - Left Hand Blood Culture - Final No growth in 5 days. 08/25/23 10:15 Blood Culture (Wb) - Pic Blood Culture - Final No growth in 5 days. 08/17/23 09:15 Sputum, Induced/Lukens Gram Stain - Final 08/17/23 09:15 Sputum, Induced/Lukens Respiratory Culture - Final Stenotrophomonas maltophilia 08/17/23 09:00 Blood Culture (Wb) - Pic Blood Culture - Final Stenotrophomonas maltophilia 08/17/23 09:00 Blood Culture (Wb) - Right Wrist Blood Culture - Final No growth in 5 days. 08/12/23 12:29 Wash - Right Middle Lobe Virus Culture - Final 08/20/23 10:15 Stool Stool Occult Blood (CRISTIAN) - Final Occult Blood Positive 08/11/23 15:14 Fluid - Pleural (Lung) Gram Stain - Final 08/11/23 15:14 Fluid - Pleural (Lung) Body Fluid Culture - Final Culture exhibits no growth. 08/11/23 15:14 Fluid - Pleural (Lung) Anaerobic Culture - Final No growth in 5 days. 08/12/23 12:29 Wash - Bronchial Gram Stain - Final 08/12/23 12:29 Wash - Bronchial Respiratory Culture - Final Stenotrophomonas maltophilia 08/11/23 09:59 Sputum, Induced/Lukens Gram Stain - Final 08/11/23 09:59 Sputum, Induced/Lukens Respiratory Culture - Final Stenotrophomonas maltophilia 08/12/23 10:49 Nasal Secretion SARS-CoV-2 Antigen (Rapid) - Final 08/04/23 00:00 Sputum, Expectorated/Coughed Gram Stain - Final 08/04/23 00:00 Sputum, Expectorated/Coughed Respiratory Culture - Final 08/03/23 21:57 Urine, Random Legionella Antigen - Final 08/03/23 21:57 Urine, Random Streptococcus pneumoniae Antigen (M - Final 08/03/23 18:30 Mucosa - Nose SARS-CoV-2, Influenza & RSV (PCR) - Final ABG Data ABG results: ABG 08/11/23 10:13 Specimen Type ART Sample Site L Radial pH 7.47 H Bicarbonate Actual 36.1 H Total CO2 38 Base Excess 13 H O2 Saturation 99 O2 % 50.0 ABG pCO2 49.8 H ABG pO2 132 H Abhijit Test Positive Respiration Rate 14 O2 Delivery Device Adult Vent Vent Mode AC Tidal Volume 500.0 POC PEEP 10 Radiography Diagnostic Testing: Radiology Impression Chest X-Ray 08/30/23 06:50 IMPRESSION: Stable exam. Electronically Signed: Mehdi Ernandez MD at 9:01 EDT , Physical Exam Const Constitutional Narrative: Intubated, sedated and mechanically ventilated. No ventilator dyssynchrony noted. General Appearance: ill appearing and patient mechanically ventilated HEENT normocephalic and head/scalp atraumatic Eyes PERRL, EOMs intact bilaterally and conjunctivae normal Neck supple Neck Narrative: Stable tracheostomy site General: trachea midline Chest inspection of chest normal Resp Resp Narrative: Coarse mechanical breath sounds. Auscultation: diminished lung sounds; Negative for rales, rhonchi or wheezes Cardio regular rate, regular rhythm, S1 normal heart sound and S2 normal heart sound GI normal to inspection, nondistended, normoactive bowel sounds Inspection: GI tube present Extremity General Extremity: edema Skin no rashes or lesions noted Neuro Sensorium / Orientation: sedated on vent Charges/Coding Procedures Hospitalists Procedures: 43190 Critical Care 1st Hr
[2023-09-01 10:48] LABS: Anisocytosis 2+; Differential Comment SCANNED; Macrocytosis 1+; Microcytosis 1+
--- NOTE | 2023-09-01 11:33 | CASEMGMT ---
Addendum entered by Alysha Méndez 09/01/23 12:25: Pt RN (Mitra) states that she talked to Timmy from [facility] and that he told the RN that they need 2 medics to manage all of the pt equipment (Vent, propofol, Fentanyl, and Norepinephrine) and that they only have one medic available for this job currently. Timmy states that only one medic can handle 3 pieces of equipment like this at a time. Mitra states that she is going to attempt to wean the pt off of the propofol today if possible. If so, we can reattempt to set up a transfer time once appropriate. Sonia from [facility] updated. Dr. Munoz updated at this time. Will follow. Addendum entered by Alysha Méndez 09/01/23 12:01: Debi states that Timmy ([facility]) is going to contact the ICU nurse caring for the pt (or the MD if available) and discuss options regarding pt transfer. Nursing SV, ICU alumnae secretary, and pt RN updated at this time. Will continue to follow. Original Note: Dr. Munoz states to this RN CM that Dr. Jim states that the pt can DC to the LTACH today after surgery and HD afterwards. Vinh (Nephro RN) states that he will plan on dialyzing the pt as soon as the pt returns to the floor. TC to Sonia at [facility] and Sonia states that she agrees with this plan and to aim for an 8pm transfer time. TC to [facility] to set up pt transport and [facility] states that they cannot accept the pt transfer d/t the pt being too critical. TC to Debi, care senior talent management consultant and Debi states that she is going to contact Timmy from [facility]. Will continue to follow.
[2023-09-01] MEDS: Midodrine HCl 5 MG Tablet 10 MG PO (12:52)
[2023-09-01] MEDS: Cefazolin 2 GM in 0.9% Normal Saline (100mL Bag) 100 ML IV (12:52)
[2023-09-01] MEDS: 0.9% Normal Saline (250mL Bag) 250 ML 15 ML IV (13:03)
[2023-09-01 13:19] LABS: Bedside Glucose 106 mg/dL (74-106)
--- NOTE | 2023-09-01 13:31 | NURSING ---
off floor with OR staff at this time
[2023-09-01] MEDS: Bupivacaine Mpf 0.5% 30 ML VIAL (14:30)
--- NOTE | 2023-09-01 14:58 | CHAPLAIN ---
Type of Pastoral Visit ___ Initial Visit _x__ Follow-up Visit ___ On-call Visit ___ General Patient Visit ___ Spiritual Assessment ___ Family Conference ___ Bereavement ___ Rapid Response ___ Code Blue ___ Other (describe below) Pastoral Care Referral From ___ Patient _x__ Family ___ Nurse ___ Physician ___ Director Life ___ Medical Videographer ___ Other (describe below) Sacrament/Intervention ___ Active listening ___ Anointing ___ Samaritan ___ Bereavement ___ Communion ___ Khushboo exploration ___ ___ Life review _x__ Prayer ___ Reconciliation ___ Sacrament of Sick _x__ Supportive presence ___ Wedding ___ Other (describe below) Pastoral Comments patient has eyes open and staff has tried to wean him down from sedatives; spouse stands at a short distance from the bed but does not say much; offer to make prayer time is received well; this device repair technician spoke out loud about progress and procedures done for the patient; spoke words of encouragement and hope to patient and family
[2023-09-01] MEDS: Heparin 10,000 UNITS/10 ML Vial 10000 UNITS (14:59)
--- NOTE | 2023-09-01 15:16 | PCM.OPRPT ---
Report of Operation Date of Procedure: 09/01/23 Pre-Operative Diagnosis: Acute kidney injury superimposed upon CKD 3 requiring hemodialysis Post-Operative Diagnosis: Same Surgery/Procedure Performed:: Ultrasound and fluoroscopic guided placement of tunneled left internal jugular hemodialysis catheter Description of Surgical Findings:: ? Partially occlusive thrombus within the right internal jugular vein ? Patent left internal jugular vein with normal course to the right atrium Surgeon: Keyur Cade dimension warehouse supervisor: None Type of Anesthesia: MAC/Supplemental/Local Anesthesiologist: Amos Francisco Specimen's removed: None Estimated Blood Loss (mL): 20 Description of Procedure: After appropriate identification in the ICU he was brought directly to the operating room where his tracheostomy was connected to the vent circuit. Preoperative antibiotics were completely administered. Sedation was begun per anesthesia and the patient's left neck was prepped and draped in usual sterile fashion after confirming patency of the internal jugular vein with bedside ultrasound (of note the exam of the right internal jugular vein showed a partially occlusive thrombus). Formal timeout was conducted to confirm both the patient and the procedure. Procedure was begun with ultrasound-guided access of the left internal jugular vein using the provided finder needle and 035 guidewire. There was some resistance with passage of the Glidewire despite ultrasound confirmation of the wire within the vessel domain and trying to use fluoroscopy to advance it in antegrade fashion. Therefore the wire was withdrawn and the needle was reconfirmed within the middle of the vessel lumen. Once again the wire was advanced through the needle and this time it did so without difficulty to its desired location within the right atrium. This was confirmed with x-ray. At this point I made a measurement from the insertion site in the lower neck to the mid atrium of approximately 23 cm. Measuring back from the proximal insertion site on the catheter, we determined that the tunneling site would be at 5 cm away from the insertion site. Therefore this was measured out on the patient's chest and a counterincision was made at this point after instilling local anesthetic. A gentle curve of the tunneling tract to the insertion site was also instilled with local anesthetic. Then the catheter was connected to the tunneling device and was tunneled to the insertion site. Next the insertion site was serially dilated and the peel-away sheath was placed under fluoroscopy. The catheter was fed through the peel-away sheath and once we neared completion another fluoroscopy image was obtained. Functionally, the catheter was tested with aspiration and flush of injectable saline which it did with ease. The insertion site was then closed with a single interrupted 3-0 nylon stitch. Another 3-0 nylon stitch was used to close down the insertion site at the tunneling entrance as a means of creating a cerclage. Lastly, the catheter was secured at the tiedown points on each port with a interrupted 3-0 nylon. Now each catheter lumen was locked with 2 mL heparinized saline (concentration 1000 units/mL) per package specification. Chlorhexidine gel dressing was placed about the catheter. A small OpSite was applied to the insertion site. Patient was then allowed to emerge from sedation and an order was placed for stat chest x-ray to confirm appropriate positioning of the catheter and exclude any pneumothorax. However, upon preparing to transfer the patient to his ICU bed nursing noticed that the patient and had a liquid bowel movement and efforts were made to reposition him so that he could be thoroughly cleaned. He was thus supported on both sides as this contamination was contained. Upon returning to a supine position he was then transferred to his ICU bed where he was noted to be cyanotic. Upon checking the pulse oximeter patient appeared to have arrested and CPR was initiated immediately. It was quickly apparent that the patient had undergone pulseless electrical activity at rest. Additional assistance was called to the operating room and a code event was separately documented. After ensuring that ample help was present I requested the family to the consult room where I discussed patient's critical condition with his and her close friend. We reviewed his DNRCC status and I confirmed from her that she wished to abide by her 's wishes. I thus returned to the operating room where code events were still underway and asked for a stoppage of compressions and performed a pulse check. No pulse was palpable nor dopplerable, yet when I placed a ultrasound probe on patient's right femoral artery there did appear to be some transient pulsatile flow that quickly dissipated. After noting this and confirming no end-tidal CO2 production with anesthesia patient was declared . Admit VTE Documentation VTE Mechan Device Prophylaxis: SCD's Procedures Cardiovascular CF Procedures [id number]: [id number] Insert tunneled cv cath
--- NOTE | 2023-09-01 15:30 | CASEMGMT ---
Addendum entered by Alysha Méndez 09/01/23 16:06: This RN CM was just notified that the pt coded and in OR. TC to [facility] and transport for 1999 cancelled. TC to Sonia at [facility] and notified. Original Note: Pt RN states that she talked to [facility] and was still uncertain if they would be able to transport the pt tonight. TC to [facility] and this RN CM talked to Timmy (President of [facility]) and Timmy states that they can now manage to transfer the pt tonight at 1999 to [facility]. Pt RN, Sonia, and community health nursing director notified. N2N number received. After hours fax # received and given to community health nursing director. Giovana Justice RN is currently on the floor and states that he has everything set up for HD once the pt returns to the floor. Plan is for HD once pt returns and transfer to [facility] at 1999 after.
--- NOTE | 2023-09-01 16:12 | PCM.DEATH ---
Preliminary Cause of Preliminary Cause of Preliminary Cause of : Pneumonia with multidrug-resistant organism Stenotrophomonas maltophilia Acute non-STEMI Pulmonary embolism Acute kidney injury resulting in dialysis Date of Admission: 08/03/23 Date of : 09/01/23 Principle Diagnosis Pulmonary embolism Acute non-STEMI Problem List: Active and Suspected Problems (Updated 08/19/23 @ 14:[address] Imtiaz Montemayor MD) Bacteremia due to Gram-negative bacteria (Acute) Pulmonary embolus, right (Acute) DVT (deep venous thrombosis) (Acute) Acute hypoxic respiratory failure (Acute) Pleural effusion, right (Acute) TRENA (acute kidney injury) (Acute) Chronic kidney disease, stage 3b (Acute) Pneumonia (Acute) Non-STEMI (non-ST elevated myocardial infarction) (Acute) Hospital Course Patient is a 72-year-old gentleman admitted with shortness of breath was found to have elevated troponin consistent with acute non-STEMI treatment initiated per protocol admitted to the intensive care unit. Patient was found to be in acute respiratory failure resulting in the use of BiPAP. Patient has had a complicated stay with prolonged stay on the vent underwent PEG tube placement developed pulmonary embolism started on heparin did not tolerate statin had an IVC filter placed. Kidney function also did worsen resulting in initiation of hemodialysis. Had a PEG tube placed. Patient underwent trach placement and plan was for patient to have been transferred to an LTAC to continue with his recovery. Prior to patient being transferred patient was noted to have a malfunctioning dialysis catheter. Decision was therefore made for patient to undergo replacement. Patient however went into cardiac arrest. His rhythm did reveal pulseless electrical activity. Attempted to resuscitate patient using ACLS was unsuccessful. Family informed. Patient was pronounced at 1551 on 09/01/2023. Visit Charges Inpatient E&M: 89090 Disch Hosp
--- NOTE | 2023-09-01 16:51 | CHAPLAIN ---
Type of Pastoral Visit ___ Initial Visit ___ Follow-up Visit ___ On-call Visit ___ General Patient Visit ___ Spiritual Assessment ___ Family Conference _x__ Bereavement ___ Rapid Response ___ Code Blue ___ Other (describe below) Pastoral Care Referral From ___ Patient ___ Family _x__ Nurse _x__ Physician ___ Cuffing Machine Operator ___ Professor Of Engineering ___ Other (describe below) Sacrament/Intervention _x__ Active listening ___ Anointing ___ Uatsdin _x__ Bereavement ___ Communion ___ Khushboo exploration ___ ___ Life review _x__ Prayer ___ Reconciliation ___ Sacrament of Sick _x__ Supportive presence ___ Wedding ___ Other (describe below) Pastoral Comments patient in the OR and this cloud security architect was called to give support to family and friends; spouse has been given support throughout this month journey of patient in the ICU; presence, prayer, scriptures, listening to questions, time, assisting friends, and being available at time with doctors conference
== END 2023-09-01 18:00 | DRG 4 ==
LOC: ED 14:31 → PCU 08-04 07:47 → ICU 08-08 07:15 → PCU 08-22 07:20
PROVIDERS: Family Medicine; Hospitalist; Internal Medicine; Internal Medicine Critical Care Medicine; Internal Medicine Gastroenterology; Internal Medicine Nephrology; Internal Medicine Pulmonary Disease; Nurse Practitioner Adult Health; Otolaryngology; Surgery; Emergency Provider Emergency Medicine; PCP Family Medicine; Visit Provider Student in an Organized Health Care Education/Training Program
PROC: 0BJ08ZZ Inspection of Tracheobronchial Tree, Via Natural or Artificial Opening Endoscopic (ICD-10-PCS; CPT 31622; principal; 2023-08-12 11:00)
PROC: 0DJ08ZZ Inspection of Upper Intestinal Tract, Via Natural or Artificial Opening Endoscopic (ICD-10-PCS; CPT 43235; principal; 2023-08-25 10:25)
PROC: 0B110F4 Bypass Trachea to Cutaneous with Tracheostomy Device, Open Approach (ICD-10-PCS; principal; 2023-08-30 15:45)
PROC: 5A12012 Performance of Cardiac Output, Single, Manual (ICD-10-PCS; principal; 2023-09-01 13:15)
DX: I21.4 Non-ST elevation (NSTEMI) myocardial infarction (principal); I26.99 Other pulmonary embolism without acute cor pulmonale; N17.0 Acute kidney failure with tubular necrosis; I50.33 Acute on chronic diastolic (congestive) heart failure; J15.69 Pneumonia due to other Gram-negative bacteria; J80 Acute respiratory distress syndrome; I82.C11 Acute embolism and thrombosis of right internal jugular vein; E87.1 Hypo-osmolality and hyponatremia; I13.0 Hypertensive heart and chronic kidney disease with heart failure and stage 1 through stage 4 chronic kidney disease, or unspecified chronic kidney disease; I82.451 Acute embolism and thrombosis of right peroneal vein; Z99.11 Dependence on respirator [ventilator] status; J91.8 Pleural effusion in other conditions classified elsewhere; T82.41XA Breakdown (mechanical) of vascular dialysis catheter, initial encounter; R78.81 Bacteremia; N30.01 Acute cystitis with hematuria; Z16.24 Resistance to multiple antibiotics; R57.8 Other shock; D63.1 Anemia in chronic kidney disease; N18.32 Chronic kidney disease, stage 3b; I46.9 Cardiac arrest, cause unspecified; Z93.1 Gastrostomy status; Z99.2 Dependence on renal dialysis; E87.6 Hypokalemia; I25.10 Atherosclerotic heart disease of native coronary artery without angina pectoris; R19.5 Other fecal abnormalities; K31.89 Other diseases of stomach and duodenum; X58.XXXA Exposure to other specified factors, initial encounter; Z66 Do not resuscitate; Z90.5 Acquired absence of kidney; Z79.82 Long term (current) use of aspirin; Z79.899 Other long term (current) drug therapy; Z85.51 Personal history of malignant neoplasm of bladder; Z87.891 Personal history of nicotine dependence
CPT/HCPCS: 31500; 31720; 32555; 36415; 36569; 36600; 37191; 71045; 71046; 71275; 74018; 76000; 76937; 80048; 80053; 80061; 80069; 80202; 81001; 82274; 82550; 82803; 82945; 82962; 83520; 83615; 83735; 83880; 84100; 84132; 84145; 84156; 84157; 84478; 84484; 85014; 85018; 85025; 85610; 85730; 86038; 86160; 86225; 86235; 86256; 87015; 87040; 87070; 87075; 87077; 87116; 87186; 87205; 87206; 87252; 87278; 87449; 87631; 87641; 87811; 88108; 88305; 88313; 88341; 88342; 89050; 90937; 90947; 93005; 93306; 93458; 93970; 94002; 94003; 94640; 94660; 94667; 94668; 94762; 97110; 97162; 97163; 97166; 97530; 97535; 97803; 99252; 99285; C1769; C1880; C1894; J2997; J7030; J7040; J7050; J7120; Q9967; A4216; C1752; G0257; G0463; J0696; J1940; J2405; J3490